=== PATIENT | female | born 1950 | race Caucasian/White ===

== ENCOUNTER → 2019-11-25 09:24 | Outpatient (BNVA) | payer MEDICARE, MEDICAID, SELFPAY | PROVIDERS: PCP Nurse Practitioner Family; Referring Provider Nurse Practitioner Family; Visit Provider Orthopaedic Surgery | DX: M25.561 Pain in right knee (principal) | CPT/HCPCS: 20610; 99213; J1100 ==

== ENCOUNTER → 2020-03-27 11:38 | Outpatient (BNVA) | payer MEDICARE, MEDICAID, SELFPAY | PROVIDERS: PCP Nurse Practitioner Family; Visit Provider Hospitalist | DX: Z76.89 Persons encountering health services in other specified circumstances (principal) | CPT/HCPCS: Q3014 ==

== ENCOUNTER → 2020-04-11 08:20 | Outpatient (BNVA) | payer MEDICARE, MEDICAID, SELFPAY | PROVIDERS: PCP Nurse Practitioner Family; Visit Provider Physician Assistant ==

== ENCOUNTER 2020-06-15 09:16 | Outpatient (REF) | payer MEDICARE, SELFPAY ==
--- NOTE | ~2020-06-15 | US_ITS ---
EXAMINATION: US ABDOMEN COMPLETE CLINICAL INFORMATION: Epigastric pain. COMPARISON: Previous CT of the abdomen and pelvis October 2019 TECHNIQUE: Real-time imaging of the abdominal viscera. FINDINGS: PANCREAS: Normal. ABDOMINAL AORTA: The proximal, mid, and distal segments are normal in caliber. INFERIOR VENA CAVA: Visualized portions are normal. LIVER: Liver echotexture is increased. The liver is enlarged, right lobe measuring 20 cm in length. The liver is normal in contour.. No focal hepatic lesion. There is no intrahepatic biliary duct dilatation seen. GALLBLADDER: Normal. The gallbladder is physiologically distended without evidence of stones, sludge, polyps, wall thickening or pericholecystic fluid. COMMON BILE DUCT: Normal in caliber measuring 0.4 cm in diameter. RIGHT KIDNEY: Normal No hydronephrosis. No renal calculi or focal parenchymal lesions. The kidney measures 10.6 cm in maximum dimension. LEFT KIDNEY: No hydronephrosis. No renal calculi or focal parenchymal lesions. The kidney measures 10.2 cm in maximum dimension. The nuclear medicine pet ct technologist reports the patient is tender over the left kidney. SPLEEN: Normal. The spleen measures 10.4 cm in maximum dimension. FREE FLUID: None. US/US abdomen complete IMPRESSION: Enlarged echogenic liver probably representing fatty infiltration. Otherwise unremarkable exam. The nuclear medicine pet ct technologist reports the patient is tender over the left kidney.
== END 2020-06-15 09:17 | disposition home or self-care (01) ==
LOC: HO.US 09:16
PROVIDERS: PCP Family Medicine; Visit Provider Family Medicine
DX: R10.13 Epigastric pain (principal)
CPT/HCPCS: 76700

== ENCOUNTER → 2020-07-11 13:11 | Outpatient (BNVA) | payer MEDICARE, SELFPAY | PROVIDERS: Visit Provider Hospitalist | DX: J44.9 Chronic obstructive pulmonary disease, unspecified (principal); G47.33 Obstructive sleep apnea (adult) (pediatric) | CPT/HCPCS: 99212 ==

== ENCOUNTER 2020-09-05 10:55 | Outpatient (REF) | payer MEDICARE, SELFPAY ==
--- NOTE | ~2020-09-05 | XR_ITS ---
EXAMINATION: XR HIP, LEFT CLINICAL INFORMATION: Pain in left hip. COMPARISON: None TECHNIQUE: Two views of the left hip. FINDINGS: Bones and soft tissues are normal. No fracture. Alignment is anatomic. Hip joint space is maintained. XR/XR hip LT min 2V IMPRESSION: Unremarkable left hip.
== END 2020-09-05 10:56 | disposition home or self-care (01) ==
LOC: HO.XRAY 10:55
PROVIDERS: PCP Nurse Practitioner; Visit Provider Internal Medicine
DX: M25.552 Pain in left hip (principal)
CPT/HCPCS: 73502

== ENCOUNTER 2020-09-27 14:32 | Outpatient (REF) | payer MEDICARE, SELFPAY ==
--- NOTE | ~2020-09-27 | US_ITS ---
EXAMINATION: US PELVIS CLINICAL INFORMATION: Postmenopausal bleeding. COMPARISON: None. TECHNIQUE: Ultrasound of the pelvis is performed using both transabdominal and transvaginal transducers along with Doppler. Transvaginal imaging is performed due to inadequate visualization transabdominally. FINDINGS: Uterus: The uterus is anteverted and anteflexed measuring 5.4 cm in length, 2.3 cm AP and 4.8 cm in transverse dimension. Endometrial thickness is 0.7 cm. No focal lesion seen. Adnexa: Both ovaries are not visualized. There is no pelvic ascites or fluid collection. US/US pelvic and transvaginal IMPRESSION: Unremarkable uterus. Mild endometrial thickening. Ovaries are not seen.
== END 2020-09-27 14:33 | disposition home or self-care (01) ==
LOC: HO.US 14:32
PROVIDERS: Visit Provider Nurse Practitioner
DX: N95.0 Postmenopausal bleeding (principal)
CPT/HCPCS: 76830; 76856

== ENCOUNTER → 2020-10-15 20:01 | Outpatient (REF) | payer MEDICARE, SELFPAY | LOC: HO.SL 20:01 | PROVIDERS: Visit Provider Hospitalist | DX: G47.33 Obstructive sleep apnea (adult) (pediatric) (principal) | CPT/HCPCS: 95810 ==

== ENCOUNTER → 2020-10-27 10:17 | Outpatient (BNVA) | payer MEDICARE, SELFPAY | PROVIDERS: PCP Nurse Practitioner; Visit Provider Hospitalist | DX: G47.33 Obstructive sleep apnea (adult) (pediatric) (principal); J44.9 Chronic obstructive pulmonary disease, unspecified | CPT/HCPCS: 99212 ==

== ENCOUNTER → 2020-11-08 13:16 | Outpatient (BNVA) | payer MEDICARE, SELFPAY | PROVIDERS: PCP Nurse Practitioner; Visit Provider Hospitalist | DX: J45.909 Unspecified asthma, uncomplicated (principal) | CPT/HCPCS: 99211 ==

== ENCOUNTER → 2021-10-12 14:19 | Outpatient (BNVA) | payer MEDICARE, SELFPAY | PROVIDERS: PCP Nurse Practitioner; Visit Provider Hospitalist | DX: J44.9 Chronic obstructive pulmonary disease, unspecified (principal); J45.41 Moderate persistent asthma with (acute) exacerbation; K21.9 Gastro-esophageal reflux disease without esophagitis; G47.33 Obstructive sleep apnea (adult) (pediatric) | CPT/HCPCS: 99212 ==

== ENCOUNTER 2021-12-04 15:14 | Outpatient (REF) | payer OTHER, SELFPAY ==
--- NOTE | ~2021-12-04 | MM_ITS ---
EXAMINATION: MM SCREENING DIGITAL BREAST TOMOSYNTHESIS, BILATERAL CLINICAL INFORMATION: Screening. Asymptomatic. The lifetime risk of breast cancer based on the Tyrer-Cuzick Model is 4%. COMPARISON: Mammography: 10/19/2019, 07/06/2018, 06/10/2017 TECHNIQUE: Digital breast tomosynthesis is performed in both the craniocaudal and mediolateral oblique views along with computer-aided detection (CAD). Synthesized 2D images are generated from the tomosynthesis. FINDINGS: There are scattered areas of fibroglandular density (ACR BI-RADS breast composition Category b). There are no significant masses, abnormal calcifications, or other abnormalities. Parenchymal pattern is similar to prior exams. No developing density or architectural abnormality. Incidental intramammary node again seen mid upper outer right breast. There are biopsy clip markers in both anterior breasts. The axilla and skin contours are unremarkable. MM/MM tomosynthesis screening BI IMPRESSION: No mammographic evidence of malignancy. ASSESSMENT: BI-RADS 2: Benign RECOMMENDATION: Routine annual mammography screening. This patient's information was entered into a reminder system with a target due date for their next mammogram.
== END 2021-12-04 15:15 | disposition home or self-care (01) ==
LOC: HO.MAMMO 15:14
PROVIDERS: PCP Nurse Practitioner; Visit Provider Nurse Practitioner
DX: Z12.31 Encounter for screening mammogram for malignant neoplasm of breast (principal)
CPT/HCPCS: 77063; 77067

== ENCOUNTER → 2022-02-25 15:06 | Outpatient (BNVA) | payer OTHER, SELFPAY | PROVIDERS: PCP Nurse Practitioner; Visit Provider Hospitalist | DX: J45.41 Moderate persistent asthma with (acute) exacerbation (principal); J44.9 Chronic obstructive pulmonary disease, unspecified; G47.33 Obstructive sleep apnea (adult) (pediatric) | CPT/HCPCS: 99212 ==

== ENCOUNTER 2022-07-25 15:12 | Outpatient (REF) | payer OTHER, SELFPAY ==
--- NOTE | ~2022-07-25 | XR_ITS ---
EXAMINATION: XR SHOULDER, LEFT CLINICAL INFORMATION: Left shoulder pain. COMPARISON: None available. TECHNIQUE: AP external rotation, Grashey, scapular Y, and axillary views of the left shoulder. FINDINGS: There is no evidence of acute fracture or dislocation of the left shoulder. No evidence of calcific tendinitis or bursitis. Glenohumeral joint appears unremarkable other than for minimal spurring inferiorly. There is mild spurring about the acromioclavicular joint. No widening of the coracoclavicular space is seen. XR/XR shoulder LT min 2V IMPRESSION: No significant bony abnormality of the left shoulder identified.
== END 2022-07-25 15:13 | disposition home or self-care (01) ==
LOC: HO.HHCX 15:12
PROVIDERS: Visit Provider Emergency Medicine
DX: M25.512 Pain in left shoulder (principal)
CPT/HCPCS: 73030

== ENCOUNTER 2022-08-30 09:50 | Outpatient (REF) | payer OTHER, SELFPAY ==
[2022-08-30 11:23] LABS: Urine Cytology See Pathology rpt
[2022-08-30 11:39] LABS: Appearance Urine Clear; Basophils Percent Auto 0.7 % (0-2); Color Urine Yellow; Eosinophils Absolute Auto 1.3 X10*3/uL (0.0-0.4); Eosinophils Percent Auto 22.3 % (0-4); Glucose Urine UA Negative (Negative); Hematocrit 32.8 % (37.0-47.0); Hemoglobin 10.3 g/dl (12.0-16.0); Imm Gran Abs Auto 0.01 X10*3/uL (0.00-0.03); Imm Gran Pct Auto 0.2 % (0.0-0.4); Leukocyte Esterase Urine Negative (Negative); Lymphocytes Absolute Auto 1.3 X10*3/uL (1.2-4.9); MANUAL DIFF FLAG SCAN; Mean Corpuscular HGB Conc 31.4 g/dl (31.0-35.0); Mean Corpuscular Hemoglobin 30.8 pg (27.0-33.0); Mean Corpuscular Volume 98.2 fL (80.0-98.0); Mean Platelet Volume 10.4 fL (9.4-12.3); Monocytes Absolute Auto 0.3 X10*3/uL (0.1-1.2); Monocytes Percent Auto 5.6 % (2-11); Neutrophils Absolute Auto 2.8 x10*3/uL (2.0-8.3); Neutrophils Percent Auto 49.2 % (45-73); Nitrite Urine Negative (Negative); Platelet Count 327 X10*3/uL (160-400); Red Blood Count 3.34 X10*6/uL (4.20-5.50); Red Cell Distribution Width 12.4 % (11.0-16.0); SCAN SMEAR FLAG 1; Urine Blood Negative (Negative); Urine Ketones Negative (Negative); Urine Protein Negative (Neg-Trace); White Blood Count 5.7 X10*3/uL (4.8-10.8)
[2022-08-30 11:58] LABS: SLIDE REVIEW VERIFIED
[2022-08-30 12:04] LABS: Creatinine Urine 126.35 mg/dL; Microalbum/Creatinine Ratio Ur 7.9 ug/mg cr
[2022-08-30 12:33] LABS: Estimated Average Glucose 137 mg/dL; Hemoglobin A1c % 6.4 %
[2022-08-30 12:56] LABS: Alanine Aminotransferase 11 U/L (0-31); Albumin Level 4.1 g/dL (3.5-5.0); Alkaline Phosphatase 55 U/L (39-117); Anion Gap 12 (12-20); Aspartate Amino Transferase 13 U/L (5-31); Bilirubin Total 0.3 mg/dL (0.0-1.0); Blood Urea Nitrogen 17 mg/dL (9-16); Calcium 9.7 mg/dL (8.4-10.2); Carbon Dioxide 26 mmol/L (22-29); Chloride 104 mmol/L (96-108); Cholesterol 263 mg/dL; Estimated Glomerular Filt Rate > 60; Glucose Fasting 120 mg/dL (60-99); HDL Cholesterol 67 mg/dL; LDL Cholesterol Calculated 150 mg/dl; Sodium 138 mmol/L (135-145); Syphilis Screen Nonreactive (Nonreactive); Total Protein 6.9 g/dL (6.5-8.0); Triglycerides 233 mg/dL
[2022-08-30 13:01] LABS: Vitamin D 25-OH Total 38.3 ng/mL (>30)
[2022-08-30 13:16] LABS: Vitamin B12 512 pg/mL (200-900)
[2022-08-30 13:47] LABS: CT PCR NOT DETECTED (Not Detect.); NG PCR NOT DETECTED (Not Detect.)
[2022-09-02 05:05] LABS: ~HepC Num1 0.14 S/CO (0.00-0.79); ~Hepatitis C Antibody Nonreactive (Nonreactive)
[2022-09-02 05:12] LABS: HBc Num1 0.12 S/CO (0.00-0.79); HBsAGNum1 0.21 S/CO (0.00-0.99); HIV AB/AG Nonreactive (Nonreactive); HIV Num 1 0.13 S/CO (0.00-0.99); Hepatitis B Core Antibody Nonreactive (Nonreactive); Hepatitis B Surface Antigen Negative (Negative)
[2022-09-02 05:50] LABS: HBS Num1 134.12 mIU/mL (0-7.99); ~Hepatitis B Surface Antibody REACTIVE (Nonreactive)
== END 2022-08-30 09:51 | disposition home or self-care (01) ==
LOC: HO.CHCLDS 09:50
PROVIDERS: Visit Provider Student in an Organized Health Care Education/Training Program
DX: Z00.00 Encounter for general adult medical examination without abnormal findings (principal); Z11.4 Encounter for screening for human immunodeficiency virus [HIV]; Z20.2 Contact with and (suspected) exposure to infections with a predominantly sexual mode of transmission; C67.9 Malignant neoplasm of bladder, unspecified; E11.9 Type 2 diabetes mellitus without complications; Z79.4 Long term (current) use of insulin
CPT/HCPCS: 0353U; 80053; 80061; 81003; 82043; 82306; 82607; 83036; 84439; 85025; 86704; 86706; 86780; 86803; 87340; 87389; 88112

== ENCOUNTER 2022-09-16 12:50 | Outpatient (AMB) | payer OTHER, SELFPAY ==
[2022-09-16 13:09] VITALS: BMI 28.3
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
== END 2022-09-16 13:56 | disposition home or self-care (01) ==
PROVIDERS: PCP Nurse Practitioner; Visit Provider Orthopaedic Surgery
DX: M25.812 Other specified joint disorders, left shoulder (principal); M75.42 Impingement syndrome of left shoulder
CPT/HCPCS: 20610; 99214

== ENCOUNTER → 2022-09-16 12:50 | Outpatient (BNVA) | payer OTHER, SELFPAY | PROVIDERS: PCP Nurse Practitioner; Visit Provider Orthopaedic Surgery | DX: M25.812 Other specified joint disorders, left shoulder (principal); E11.9 Type 2 diabetes mellitus without complications | CPT/HCPCS: 20610; 99212; J1100 ==

== ENCOUNTER 2022-10-07 15:05 | Outpatient (REF) | payer OTHER, SELFPAY ==
[2022-10-07 16:49] LABS: MANUAL DIFF FLAG NO
[2022-10-07 17:08] LABS: Basophils Percent Auto 0.6 % (0-2); Eosinophils Absolute Auto 1.2 X10*3/uL (0.0-0.4); Eosinophils Percent Auto 16.1 % (0-4); Hematocrit 31.1 % (37.0-47.0); Imm Gran Abs Auto 0.02 X10*3/uL (0.00-0.03); Imm Gran Pct Auto 0.3 % (0.0-0.4); Lymphocytes Absolute Auto 1.6 X10*3/uL (1.2-4.9); Lymphocytes Percent Auto 22.5 % (20-40); Mean Corpuscular HGB Conc 32.2 g/dl (31.0-35.0); Mean Corpuscular Hemoglobin 31.3 pg (27.0-33.0); Mean Corpuscular Volume 97.5 fL (80.0-98.0); Mean Platelet Volume 10.4 fL (9.4-12.3); Monocytes Absolute Auto 0.3 X10*3/uL (0.1-1.2); Monocytes Percent Auto 4.3 % (2-11); Neutrophils Percent Auto 56.2 % (45-73); Platelet Count 285 X10*3/uL (160-400); Red Blood Count 3.19 X10*6/uL (4.20-5.50); White Blood Count 7.2 X10*3/uL (4.8-10.8)
[2022-10-07 20:49] LABS: Influenza A PCR NEGATIVE (Negative); Influenza B PCR NEGATIVE (Negative); Resp Syncy Virus RNA Qual PCR NEGATIVE (Negative); SARS COV2 PCR INHOUSE NEGATIVE (Negative)
[2022-10-08 10:07] LABS: BV Int Neg Control Negative (Negative); BV Int Pos Control Positive (Positive)
== END 2022-10-07 15:06 | disposition home or self-care (01) ==
LOC: HO.HHCL 15:05
PROVIDERS: Visit Provider Emergency Medicine
DX: R30.0 Dysuria (principal); R31.9 Hematuria, unspecified; N93.9 Abnormal uterine and vaginal bleeding, unspecified; Z20.822 Contact with and (suspected) exposure to COVID-19
CPT/HCPCS: 0241U; 36415; 85025; 87086; 87480; 87510; 87660

== ENCOUNTER 2022-10-14 00:02 | Emergency (ER) | payer OTHER, SELFPAY ==
--- NOTE | 2022-10-14 | ECG_ITS ---
Test Reason : CHEST PAIN FOR 3 Days Blood Pressure : / mmHG Vent. Rate : 104 BPM Atrial Rate : 104 BPM P-R Int : 124 ms QRS Dur : 074 ms QT Int : 346 ms P-R-T Axes : 064 -02 084 degrees QTc Int : 454 ms Sinus tachycardia Otherwise normal ECG When compared with ECG of 15-NOV-2019 11:28, No significant change was found Referred By: Generic ED Physician Electronically Signed By:DANAE SAMANO
[2022-10-14 00:15] VITALS: BP 138/69; PULSE 103; RESP 18; TEMP 36.9; O2SAT 100; BMI 29.1
--- NOTE | 2022-10-14 00:29 | MHC.EDTECH ---
PATIENT CAME IN WALKING IN WITH CHEST PAIN EKG TAKEN AND WAS READ BY PROVIDER ,PT WAS BROUGHT BACK TO ROOM ,VITALS SIGN TAKEN ,PT WAS HOOKED UP TO NURSE PRN ,BLOOD DRAWN AND SENT TO LAB .
[2022-10-14 00:36] LABS: Hematocrit 30.6 % (37.0-47.0); Mean Corpuscular HGB Conc 32.7 g/dl (31.0-35.0); Mean Corpuscular Hemoglobin 31.3 pg (27.0-33.0); Mean Corpuscular Volume 95.6 fL (80.0-98.0); Mean Platelet Volume 9.5 fL (9.4-12.3); Platelet Count 330 X10*3/uL (160-400); Red Cell Distribution Width 12.2 % (11.0-16.0); White Blood Count 14.9 X10*3/uL (4.8-10.8)
[2022-10-14 00:53] LABS: Alanine Aminotransferase 10 U/L (0-31); Alkaline Phosphatase 53 U/L (39-117); Anion Gap 13 (12-20); Aspartate Amino Transferase 13 U/L (5-31); Bilirubin Total 0.1 mg/dL (0.0-1.0); Blood Urea Nitrogen 33 mg/dL (9-16); Calcium 9.5 mg/dL (8.4-10.2); Carbon Dioxide 25 mmol/L (22-29); Chloride 103 mmol/L (96-108); Creatinine Clr Calc Pharmacy 32.2; Estimated Glomerular Filt Rate 37; Glucose Random 208 mg/dL (60-115); Sodium 137 mmol/L (135-145); Total Protein 6.9 g/dL (6.5-8.0)
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
[2022-10-14 01:00] LABS: Troponin-I High Sensitivity < 2.7 ng/L (<3.5-17.0)
[2022-10-14] MEDS: Ibuprofen 600 MG TABLET PO (01:06)
[2022-10-14] MEDS: oxyCODONE HCl Immed Release 5 MG TABLET PO (01:06)
[2022-10-14 01:25] VITALS: BP 114/48; PULSE 91; RESP 20; TEMP 36.4; O2SAT 97
== END 2022-10-14 01:43 | disposition home or self-care (01) ==
PROVIDERS: Emergency Provider Emergency Medicine; PCP Internal Medicine
DX: R07.89 Other chest pain (principal); M25.512 Pain in left shoulder; F17.210 Nicotine dependence, cigarettes, uncomplicated; Z71.6 Tobacco abuse counseling; Z79.899 Other long term (current) drug therapy
CPT/HCPCS: 36415; 80053; 84484; 85027; 93005; 99283; 99285

== ENCOUNTER 2022-11-12 15:03 | Outpatient (REF) | payer OTHER, SELFPAY ==
[2022-11-12 16:15] LABS: MANUAL DIFF FLAG NO
[2022-11-12 16:33] LABS: Basophils Absolute Auto 0.1 X10*3/uL (0.0-0.2); Basophils Percent Auto 0.8 % (0-2); Eosinophils Absolute Auto 1.2 X10*3/uL (0.0-0.4); Eosinophils Percent Auto 16.1 % (0-4); Hematocrit 32.2 % (37.0-47.0); Hemoglobin 10.2 g/dl (12.0-16.0); Imm Gran Abs Auto 0.02 X10*3/uL (0.00-0.03); Imm Gran Pct Auto 0.3 % (0.0-0.4); Lymphocytes Absolute Auto 1.8 X10*3/uL (1.2-4.9); Lymphocytes Percent Auto 24.9 % (20-40); Mean Corpuscular HGB Conc 31.7 g/dl (31.0-35.0); Mean Corpuscular Hemoglobin 30.4 pg (27.0-33.0); Mean Corpuscular Volume 96.1 fL (80.0-98.0); Monocytes Absolute Auto 0.5 X10*3/uL (0.1-1.2); Monocytes Percent Auto 6.7 % (2-11); Neutrophils Absolute Auto 3.7 x10*3/uL (2.0-8.3); Neutrophils Percent Auto 51.2 % (45-73); Platelet Count 327 X10*3/uL (160-400); Red Blood Count 3.35 X10*6/uL (4.20-5.50); Red Cell Distribution Width 12.3 % (11.0-16.0); White Blood Count 7.3 X10*3/uL (4.8-10.8)
[2022-11-12 18:27] LABS: Iron 47 mcg/dL (30-160); Percent Iron Saturation 14 % (15-50); Total Iron Binding Capacity 339 mcg/dL (228-428); Unsaturated Iron Binding 292 ug/dL
[2022-11-12 18:45] LABS: Ferritin 48 ng/mL (10-250); Thyroid Stimulating Hormone 0.87 uIU/mL (0.32-4.0)
[2022-11-12 18:55] LABS: Folate 12.2 ng/mL (> or = 4.0)
[2022-11-16 23:03] LABS: Strongyloides Antibody IgG POSITIVE
== END 2022-11-12 15:04 | disposition home or self-care (01) ==
LOC: HO.HHCL 15:03
PROVIDERS: Visit Provider Student in an Organized Health Care Education/Training Program
DX: D72.19 Other eosinophilia (principal); D64.9 Anemia, unspecified
CPT/HCPCS: 82728; 82746; 83520; 83540; 84443; 85025; 86682

== ENCOUNTER → 2022-12-05 15:00 | Outpatient (BNV) | payer OTHER, SELFPAY | PROVIDERS: PCP Student in an Organized Health Care Education/Training Program; Visit Provider Radiology Diagnostic Radiology | DX: Z12.31 Encounter for screening mammogram for malignant neoplasm of breast (principal) | CPT/HCPCS: 77063; 77067 ==

== ENCOUNTER 2022-12-05 15:06 | Outpatient (REF) | payer OTHER, SELFPAY ==
--- NOTE | ~2022-12-05 | MM_ITS ---
EXAMINATION: BONE DENSITOMETRY CLINICAL INDICATION: Asymptomatic menopausal state. COMPARISON: This is the patient's baseline examination. TECHNIQUE: Using a Flowbox DXA System (software version: 13.1) manufactured by [employer], dual-energy x-ray absorptiometry was performed of the lumbar spine and left hip. The images are of good technical quality. Summary results are attached. FINDINGS: AP SPINE L1-L4: BMD 1.143 g/cm2, Z-score 1.5, T-score -0.3, normal. LEFT FEMUR, NECK: BMD 0.834 g/cm2, Z-score 0.3, T-score -1.5, osteopenia. LEFT FEMUR, TOTAL: BMD 0.984 g/cm2, Z-score 1.4, T-score -0.2, normal. IDENTIFIED RISK FACTORS: Rheumatoid arthritis. Early menopause, secondary osteoporosis . HISTORY OF FRACTURE: None listed. MEDICATIONS: Calcium supplement or multivitamin. Vitamin D. MM/XR DEXA axial skeleton IMPRESSION: 1. DIAGNOSIS: Osteopenia based on the lowest T-score value of -1.5 in the femoral neck applying World Health Organization criteria. 2. 10-YEAR FRACTURE RISK PREDICTION, FRAX: Major osteoporotic fracture (clinical spine, forearm, hip or shoulder) 7.2%. Hip fracture 1.1%. 3. Treatment Recommendations: NOF guidelines recommend consideration for treatment in postmenopausal women and men age 50 and older presenting with the following: -A hip or vertebral (clinical or morphometric) fracture. -T-score less than or equal to -2.5 at the femoral neck or spine after appropriate evaluation to exclude secondary causes. -Low bone mass at the hip or spine and a 10-year fracture probability by FRAX of greater than or equal to 3% for hip fracture or greater than or equal to 20% for major osteoporotic fracture based on the [place] adapted WHO algorithm. 4. Other Recommendations: All treatment decisions require clinical judgment and consideration of individual patient factors, including patient preferences, comorbidities, previous drug use, risk factors not captured in the FRAX model (e.g. frailty, falls, vitamin D deficiency, increased bone turnover, interval significant decline in bone density) and possible under or overestimation of fracture risk by FRAX. Additional medical evaluation for secondary cause of low bone mineral density may be appropriate. FUTURE SCAN RECOMMENDATION: People with diagnosed cases of osteoporosis or at high risk for fracture should have regular bone mineral density tests. For patients eligible for Medicare, routine testing is allowed once every 2 years. The testing frequency can be increased to one year for patients who have rapidly progressing disease, those who are receiving or discontinuing medical therapy to restore bone mass, or have additional risk factors.
--- NOTE | ~2022-12-05 | MM_ITS ---
EXAMINATION: MM SCREENING DIGITAL BREAST TOMOSYNTHESIS, BILATERAL CLINICAL INFORMATION: Screening. Asymptomatic. COMPARISON: Mammography: 12/04/2021 ,10/19/2019, 07/06/2018, 06/10/2017 TECHNIQUE: Digital breast tomosynthesis is performed in both the craniocaudal and mediolateral oblique views along with computer-aided detection (CAD). Synthesized 2D images are generated from the tomosynthesis. In addition, a right MLO nipple in profile full digital 3-D view was provided. FINDINGS: There are scattered areas of fibroglandular density (ACR BI-RADS breast composition Category b). Biopsy clips noted both anterior breasts. Benign lymph node noted in the upper outer right breast, middle one third. This is unchanged. Tiny punctate loosely grouped calcifications are again noted in the anterior left breast, unchanged and benign. There are no suspicious masses, suspicious grouped calcifications, or areas of architectural distortion in either breast. The parenchymal pattern is stable from prior exams. MM/MM tomosynthesis screening BI IMPRESSION: No mammographic evidence of malignancy. Stable benign findings ASSESSMENT: BI-RADS BI-RADS 2 - Benign Findings RECOMMENDATION: Routine annual mammography screening. 1 year F/U This examination should not preclude the clinical evaluation of a suspicious palpable abnormality. This patient's information was entered into a reminder system with a target due date for their next mammogram.
== END 2022-12-05 15:07 | disposition home or self-care (01) ==
LOC: HO.MAMMO 15:06
PROVIDERS: PCP Student in an Organized Health Care Education/Training Program; Visit Provider Student in an Organized Health Care Education/Training Program
DX: Z12.31 Encounter for screening mammogram for malignant neoplasm of breast (principal); Z13.820 Encounter for screening for osteoporosis; Z78.0 Asymptomatic menopausal state
CPT/HCPCS: 77063; 77067; 77080

== ENCOUNTER 2023-01-22 19:33 | Outpatient (REF) | payer OTHER, SELFPAY ==
[2023-01-22 20:30] LABS: Influenza A PCR NEGATIVE (Negative); Influenza B PCR NEGATIVE (Negative); Resp Syncy Virus RNA Qual PCR NEGATIVE (Negative); SARS COV2 PCR INHOUSE NEGATIVE (Negative)
== END 2023-01-22 19:34 | disposition home or self-care (01) ==
LOC: HO.HHCLNP 19:33
PROVIDERS: Visit Provider Emergency Medicine
DX: Z11.52 Encounter for screening for COVID-19 (principal); J06.9 Acute upper respiratory infection, unspecified
CPT/HCPCS: 0241U

== ENCOUNTER 2023-03-07 14:54 | Outpatient (REF) | payer OTHER, SELFPAY ==
--- NOTE | 2023-03-07 14:57 | EMG_ITS ---
Chief complaint: Hand numbness Reason for referral: Evaluate for Carpal Tunnel Syndrome Referred by: Dr. Lawrence Procedure done: Bilateral upper extremities NCS/EMG Precautions and/or limitations: Slovenian speaking, daughter helped with translation The limb temperature was monitored continuously and remained between 32-36 degrees C during the performance of the NCS. Nerve Conduction Studies Anti Sensory Summary Table ?Stim Site NR Onset (ms) Norm Onset (ms) Peak (ms) Norm Peak (ms) O-P Amp (?V) Norm O-P Amp Site1 Site2 Delta-0 (ms) Dist (cm) Js (m/s) Norm Js (m/s) Left Median Anti Sensory (2nd Digit) Wrist ? 5.2 6.1 <3.6 5.2 >10 Wrist 2nd Digit 5.2 14.0 27 Right Median Anti Sensory (2nd Digit) Wrist NR <3.6 >10 Wrist 2nd Digit 14.0 Right Radial Anti Sensory (Thumb) Forearm ? 1.6 2.3 <3.1 21.8 Forearm Thumb 1.6 0.0 Left Ulnar Anti Sensory (5th Digit) Wrist ? 2.6 3.8 <3.7 18.3 >15.0 Wrist 5th Digit 2.6 14.0 54 Right Ulnar Anti Sensory Run #2 (5th Digit) Wrist ? 3.2 4.0 <3.7 11.0 >15.0 Wrist 5th Digit 3.2 14.0 44 Motor Summary Table ?Stim Site NR Onset (ms) Norm Onset (ms) O-P Amp (mV) Norm O-P Amp iAmp (mV) Amp (1st) (%) Site1 Site2 Delta-0 (ms) Dist (cm) Js (m/s) Norm Js (m/s) Left Median Motor (Abd Poll Brev) Wrist ? 5.7 <3.9 6.9 >4.5 8.2 100.0 Elbow Wrist 3.8 19.0 50 >45 Elbow ? 9.5 6.7 8.1 97.1 Right Median Motor (Abd Poll Brev) Wrist ? 5.9 <3.9 5.2 >4.5 6.4 100.0 Elbow Wrist 4.2 17.0 40 >45 Elbow ? 10.1 4.6 5.7 88.5 Left Ulnar Motor (Abd Dig Minimi) Wrist ? 3.0 <3.0 8.4 >5 10.2 100.0 B Elbow Wrist 3.1 16.0 52 >45 B Elbow ? 6.1 8.1 9.9 96.4 A Elbow B Elbow 1.8 10.0 56 >45 A Elbow ? 7.9 7.7 9.7 91.7 Right Ulnar Motor (Abd Dig Minimi) Wrist ? 2.9 <3.0 8.3 >5 10.0 100.0 B Elbow Wrist 3.5 17.0 49 >45 B Elbow ? 6.4 8.0 9.6 96.4 A Elbow B Elbow 1.3 10.0 77 >45 A Elbow ? 7.7 7.7 9.1 92.8 EMG ?Side Muscle Nerve Root Ins Act Fibs Psw Amp Dur Poly Recrt Int Pat Comment Right 1stDorInt Ulnar C8-T1 Nml Nml Nml Nml Nml 0 Nml Complete Right FlexCarRad Median C6-7 Nml Nml Nml Nml Nml 0 Nml Complete Right Biceps Musculocut C5-6 Nml Nml Nml Nml Nml 0 Nml Complete Right Triceps Radial C6-7-8 Nml Nml Nml Nml Nml 0 Nml Complete Right Deltoid Axillary C5-6 Nml Nml Nml Nml Nml 0 Nml Complete Left 1stDorInt Ulnar C8-T1 Nml Nml Nml Nml Nml 0 Nml Complete Left FlexCarRad Median C6-7 Nml Nml Nml Nml Nml 0 Nml Complete Left Biceps Musculocut C5-6 Nml Nml Nml Nml Nml 0 Nml Complete Left Triceps Radial C6-7-8 Nml Nml Nml Nml Nml 0 Nml Complete Left Deltoid Axillary C5-6 Nml Nml Nml Nml Nml 0 Nml Complete FINDINGS: Right median motor nerve showed prolonged distal latency, normal amplitude and slow conduction velocity. Left median motor nerve showed prolonged distal latency, small amplitude and normal conduction velocity. Right median sensory nerve showed absent response. Left median sensory nerve showed prolonged peak latency and small amplitude. All other nerves tested were within normal. Concentric needle EMG was performed in selected muscles of the bilateral upper extremities. Study did not reveal signs of electric abnormalities as shown in the table below. IMPRESSION: 1. This is an abnormal study. 2. There is electrodiagnostic evidence for bilateral moderate-severe median neuropathy at the wrist, consistent with carpal tunnel syndrome. 3. There is no electrodiagnostic evidence for ulnar neuropathy, brachial plexopathy, or cervical radiculopathy. Thank you for your kind referral. Sherrie Reece MD, OSITO Board Certified, [place] Board [employer] and Rehabilitation (ABPMR) Board Certified, [place] Board of Electrodiagnostic Medicine (ABEM) CODIN 02030 x2 MTDD
== END 2023-03-07 14:55 | disposition home or self-care (01) ==
LOC: HO.NEURO 14:54
PROVIDERS: PCP Student in an Organized Health Care Education/Training Program; Visit Provider Emergency Medicine
DX: R20.0 Anesthesia of skin (principal); R20.2 Paresthesia of skin
CPT/HCPCS: 95886; 95911

== ENCOUNTER → 2023-03-07 14:57 | Outpatient (BNV) | payer OTHER, SELFPAY | PROVIDERS: PCP Student in an Organized Health Care Education/Training Program; Visit Provider Physical Medicine & Rehabilitation | DX: G56.03 Carpal tunnel syndrome, bilateral upper limbs (principal) | CPT/HCPCS: 95886; 95911 ==

== ENCOUNTER 2023-04-25 12:40 | Outpatient (AMB) | payer OTHER, SELFPAY ==
[2023-04-25 12:51] VITALS: BP 98/66; PULSE 91; O2SAT 96; BMI 28.7
--- NOTE | 2023-04-25 12:51 | A.OFFVIS_ITS ---
Intake Vital Signs 04/25/23 12:51 Height 5 ft Weight 147 lb BMI 28.7 BP 98/66 Blood Pressure Location Lt brachial Position Sitting Pulse 91 Pulse Source Doppler Pulse Oximetry (%) 96 Oxygen Delivery Method Room Air Intake Visit Reasons: COPD Allergies No Known Allergies [No Known Allergies*] Allergy (Verified 04/25/23 12:54) HPI HPI Comments History of Present Illness Details The patient is a 71-year-old woman known COPD in addition to obstructive sleep apnea. Apparently she has had multiple sleep studies in the past going back to 2010. She has had issues with hypoxia at nighttime. She has daytime drowsiness and does have headaches in the morning. Moderate severity. Her [place] score is elevated. Her last CPAP study was back in 2018 which she did have mild sleep apnea. The patient has become more symptomatic and she does carry cardiovascular risks so this point will repeat her study. I'm hoping home sleep study will be sufficient. In the meantime the patient continues to have shortness of breath she does use inhalers at home but is very confusing for her to know which 1 she is supposed to be using. I do think that we need to optimize respiratory therapy and improve her adherence and we can do this with trelegy. The patient has not had any recent pulmonary function study. She also has nasal congestion. She has had epistaxis. 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 She does use allergy medicines but still has significant congestion. Moderate severity. Complains of a postnasal drip and cough. We will try Astelin nasal spray. 11/11/2019 the patient is here for pulmonary follow-up visit. She has had worsening respiratory symptoms. She has had worsening cough moderate severity. She is expectorating yellowish mucus. She was evaluated here back in the beginning of October and was prescribed prednisone for COPD exacerbation. She also completed a short course of a Z-Yg. However, her symptoms are persistent she is getting worse. The medications were partially helpful. She continues use her nebulized therapy with partial improvement of her symptoms. On examination she does have wheezing in addition to some crackles in the right base suggesting the possibility of bronchopneumonia. Therefore, however going for an x-ray and give her additional antibiotics and prednisone. The patient also would need to undergo blood work at this time. 12/06/2020 the patient has a telephone visit today. Unfortunately she is having worsening respiratory symptoms again. Back the last time I saw her back in October she was also having issues with worsening bronchitis and possibility bronchopneumonia. She did have a chest x-ray at the time. No significant findings. Now she has presented again with increasing shortness of breath and cough. Denies any sick contacts. Denies any fevers or chills and denies any exposure to anybody with COVID-19. The patient knows that if her symptoms persist she has to be tested for COVID-19. In the meantime will treat her for a exacerbation of her asthma. The patient is continued to use a nebulizer. In regard to her sleep apnea the patient was supposed to have a sleep study however she never did. Partly because of the pandemic. Hopefully will follow-up after she gets vaccinated and will readdress the sleep apnea issue by repeating the sleep study then. 07/11/2020 the patient is here for pulmonary follow-up visit. She has a hard time with her breathing. Having significant chest congestion and bronchitis. She has had multiple courses of antibiotics and prednisone for this chronic bronchitis. At this point she will be a good candidate for Daliresp. She does have diabetes will try to minimize the amount of prednisone that she takes. Will also will optimize respiratory therapy. In the meantime she continues to have daytime drowsiness. She also has headaches in the morning. Her [place] score is elevated 10/24. She did have a sleep study back in the fall 2019 with an AHI of 3.4. She also had some degree of hypoxia. This point based on the fact that the home sleep study was sub optimal will going to request an inlab sleep study 10/27/2020 the patient is here for a pulmonary follow-up visit. She has had been having worsening respiratory symptoms. Has significant wheezing and chest congestion and cough. She has been like this now for few weeks. Seems to be getting worse. She had to stop the Daliresp as it was not helping. She also tried multiple numerous inhalers that have not been helpful. The only beneficial 1 was Bevespi. Will try her on Breztri at this at this time. In the meantime she continues to have significant daytime drowsiness. We did have her undergo a in-lab study. Her AHI was up to 30 consistent with severe sleep apnea. Patient needs to start CPAP therapy at this time. Will make arrangements with local [employer] company to start the therapy. In the meantime we did review her blood work demonstrating significant eosinophilia and also significant elevations in the IgE consistent with allergic asthma. The patient has required maximize respiratory therapy with partial resolution her symptoms and frequent prednisone. The patient is a great candidate for biologic therapy. She had been on Xolair in the past and that appear to be effective for her. I do believe that she brought will respond better to Dupixent at this time. 10/12/2021 The patient is here for a pulmonary follow up visit. She continues to struggle with her asthma. Developed worsening wheezing and productive cough. Prior to this she was doing well for several months. Unfortun ately, she is grieving the of her daughter. Could not start the Daliresp. She was started on Dupixent and she feels that is working. We will continue to monitor her progress. If she continues to require prednisone then we could consider switching to Tezspire. 02/25/2022 the patient is here for a pulmonary follow-up visit. She is having worsening respiratory symptoms. Complaining of chest tightness and wheezing. Moderate severity. She was responding very well to the Dupixent. She was no longer requiring prednisone. Her respiratory symptoms were much improved. However for some reason she has not able to get the injections anymore. Will look into it further. Hoping for her to continue biologic therapy. The meantime she does have significant wheezing and will start her on prednisone. She also get her CPAP. The CPAP therapy will be affecting beneficial. Although still not adjusted for her. She is having issues because is having too much water draining to her mask. I also see that she is using a nasal pillow mask. This is that appear to be effective for her. Therefore I did provide her with an F20 fullface mask. We continue with the APAP at the current settings but I brought the humidity down to 1. I am hopeful that she can tolerated better. She will bring in the next few months in order to make sure that she is doing better with. She is aware that she needs to use it at least 4 hours a day. 04/25/2023 the patient is here for sick visit. She has had worsening respiratory symptoms for the last week. She is feeling that she is getting wor se. Significant chest tightness and some wheezing. Moderate severity. Unfortunately her nebulizer tubing broken she has not been able to use it. She does have a Trelegy inhaler she has been using also her rescue inhaler. These therapies only been partially helpful. And only for short period of time. The patient has been struggling with significant wheezing. During the last visit she did require prednisone. Prior to that she had been on biologic therapies which have been very helpful. At this time will provide her with a nebulizer treatment in the office. After the treatment she was able to improves therefore will send her additional prednisone and antibiotics in the pharmacy. Patient also took the tubing were her to use her nebulizer home to to 4 times a day. If the patient is no better she will call the office for an earlier assessment. Although I so follow-up in 4-6 months. [facility] Medical History Asthma Asthma-COPD overlap syndrome Bilateral anterior knee pain Bladder cancer Diabetes Hypertension JIMBO (obstructive sleep apnea) Social History (Updated 04/25/23 @ 12:55 by SHAKILA Hudson) Patient Tobacco Use Status: Former Tobacco user Tobacco use type: Cigarette Years Smoked: 17 years old, quit 1 year ago Review of Systems Const Reports daytime sleepiness and Denies night sweats ENT Denies change in voice, Denies lip swelling, Denies mouth pain, Reports nasal congestion, Reports nasal discharge and Denies tongue swelling Card Denies chest pain and Reports dyspnea on exertion Resp Reports chest congestion, Reports cough, Denies hemoptysis, Reports dyspnea on exertion and Reports wheezing GI Denies abdominal pain Musc Denies no additional complaints Neuro Denies Neuro-related abnormal movements Psych Denies no additional complaints Kiran/Lymph Denies easy bleeding and Denies lymphadenopathy Aller/Immun Denies lip swelling, Denies tongue swelling and Reports wheezing Physical Exam Vital Signs: Last Vital Signs Pulse 91 04/25/23 12:51 BP 98/66 04/25/23 12:51 Pulse Ox 96 04/25/23 12:51 Oxygen Delivery Method Room Air 04/25/23 12:51 BMI result Body Mass Index 28.7 Const General: alert Neck Neck: Yes normal visual inspection, Yes full ROM and Yes no lymphadenopathy Chest Chest palpation & inspection: normal inspection of the chest Resp Auscultation: rhonchi, wheezes and diminished lung sounds Cardio Rate: regular rate Rhythm: regular rhythm Heart sounds: S1 normal heart sound present and S2 normal heart sound present GI Palpation (GI): Soft to palpation and nontender Auscultation: normal bowel sounds Skin General skin exam: rashes and/or lesions noted Office Procedures Nebulizer Treatment Nebulizer Treatment 12587-Hywmmepsl/MDI RX initial, or Nebulizer Subsequent Treatment Office Meds ipratropium 0.5 mg-albuterol 3 mg (2.5 mg base)/3 mL nebulization soln Performing Provider: Bry Morales MD Performing Location: [facility] Administered by: Florencia Bernal LPN on 04/25/23 13:10 Dose Route Admin Location Dispensed Lot Number Expiration Date NDC [employer] 3 mL inhalation 3 mL [id number] 08/16/24 7760-0284-76 [facility] Assessment & Plan Assessment & Plan (1) Asthma: Code(s): J45.909 - Unspecified asthma, uncomplicated Qualifiers: Asthma severity: moderate Asthma persistence: persistent Asthma complication type: with acute exacerbation Qualified Code(s): J45.41 - Moderate persistent asthma with (acute) exacerbation (2) Asthma-COPD overlap syndrome: Code(s): J44.9 - Chronic obstructive pulmonary disease, unspecified (3) JIMBO (obstructive sleep apnea): Code(s): G47.33 - Obstructive sleep apnea (adult) (pediatric) Plan Nebulizer with albuterol 2-4 times aday Start Prednisone taper start Doxycycline continue Trelegy 200mcg JULIO as needed Continue Claritin/astelin/Singulair Continue Fluticasone NS continue APAP, provided her a med F20 mask restart Dupexent for severe Allergic asthma once available F/U 2 months Orders: Orders AMB Nebulizer Treatment 04/25/23 J44.9 - Chronic obstructive pulmonary disease, unspecified Medications: New prednisone Take 2 tabs daily x 5 days, then 1 tab daily x 5 days 10 days 15 tabs 0RF doxycycline hyclate 100 mg PO BID 10 days 20 caps 0RF albuterol sulfate 2.5 mg (3 mL) inhalation Q6H 30 days PRN 180 mL 11RF shortness of breath or wheezing Changed From albuterol sulfate 90 mcg/actuation 2 puffs PO Q4-6H PRN To albuterol sulfate 90 mcg/actuation 2 puffs PO Q6H 30 days PRN 8.5 grams 11RF shortness of breath or wheezing Refilled [id number] 200-62.5-25 mcg (Trelegy Ellipta) 1 inh inhalation DAILY 30 days 60 ea 12RF Coding Level of Care Code Est Pt Level 4 (20181) Diagnoses Moderate persistent asthma with acute exacerbation J45.41 Asthma severity: moderate Asthma persistence: persistent Asthma complication type: with acute exacerbation Asthma-COPD overlap syndrome J44.9 JIMBO (obstructive sleep apnea) G47.33 CPT Codes Nebulizer Treatment - Nebulizer Treatment, initial or subsequent: 08961- Nebulizer/MDI RX initial, or Nebulizer Subsequent Treatment ([id number]) Time Spent (min) 17
== END 2023-04-25 13:22 | disposition home or self-care (01) ==
PROVIDERS: PCP Student in an Organized Health Care Education/Training Program; Visit Provider Hospitalist
DX: J45.41 Moderate persistent asthma with (acute) exacerbation (principal); J44.9 Chronic obstructive pulmonary disease, unspecified; G47.33 Obstructive sleep apnea (adult) (pediatric)
CPT/HCPCS: 99214

== ENCOUNTER → 2023-04-25 12:40 | Outpatient (BNVA) | payer OTHER, SELFPAY | PROVIDERS: PCP Student in an Organized Health Care Education/Training Program; Visit Provider Hospitalist | DX: J45.41 Moderate persistent asthma with (acute) exacerbation (principal); G47.33 Obstructive sleep apnea (adult) (pediatric); J44.9 Chronic obstructive pulmonary disease, unspecified | CPT/HCPCS: 94640; 99212 ==

== ENCOUNTER 2023-05-06 10:35 | Inpatient (IN) | payer OTHER, SELFPAY ==
[2023-05-06] VITALS (11 sets, daily range): BP systolic 106–152; BP diastolic 60–92; PULSE 78–116; RESP 18–28; TEMP 36–37.1; O2SAT 88–100; BMI 29.5
--- NOTE | ~2023-05-06 | XR_ITS ---
EXAMINATION: XR CHEST CLINICAL INFORMATION: Shortness of breath. COMPARISON: Chest x-ray 11/15/2019. TECHNIQUE: Frontal view of the chest was obtained. FINDINGS: The cardiomediastinal silhouette is within normal limits. The lungs are hypoexpanded with bronchovascular crowding. No focal consolidation or edema. No sizable effusion. No pneumothorax. XR/XR chest 1V IMPRESSION: No acute cardiopulmonary findings.
--- NOTE | ~2023-05-06 | XR_ITS ---
EXAMINATION: XR CHEST CLINICAL INFORMATION: Hypoxia. COMPARISON: CXR from 05/06/2023. Chest CT from 11/15/2019. TECHNIQUE: Frontal view of the chest was obtained. FINDINGS: Lungs are well expanded and without acute abnormality. No consolidation, pleural effusion or pneumothorax. The bronchial smith are chronically thickened. Query if there is any history of asthma. Cardiac silhouette has normal size and contour. No acute osseous abnormality. XR/XR chest 1V IMPRESSION: * No radiographic evidence of pneumonia. * The bronchial smith are chronically thickened.
--- NOTE | 2023-05-06 10:39 | ECG_ITS ---
Test Reason : SOB Blood Pressure : / mmHG Vent. Rate : 108 BPM Atrial Rate : 108 BPM P-R Int : 124 ms QRS Dur : 084 ms QT Int : 368 ms P-R-T Axes : 070 003 077 degrees QTc Int : 493 ms Sinus tachycardia Prolonged QT When compared with ECG of 14-OCT-2022 00:07, QT has lengthened Referred By: Jas Alfaro Electronically Signed By:GLENIS CARPENTER
--- NOTE | 2023-05-06 10:44 | ED_ITS ---
HPI - General Adult General Chief complaint: Dyspnea Stated complaint: SOB WHEEZING Time Seen by Provider: 05/06/23 10:40 Source: patient and EMS Mode of arrival: EMS Limitations: no limitations History of Present Illness HPI narrative: This is a 72-year-old female history of JIMBO, asthma, COPD, impingement of left shoulder, diabetes presenting to the emergency department shortness of breath, wheezing for the past week. Patient was seen at the [facility] this morning, where she was noted to be 87% on room air with significant shortness of breath and wheezing therefore advised to come into the hospital. Patient reports she has also had subjective fevers and chills and some substernal chest pressure. Denies sick contacts. Denies headache, vision changes, dizziness, nausea, vomiting, abdominal pain, diarrhea. Related Data Home Medications Medication Instructions Recorded Confirmed loratadine 10 mg tablet (Claritin) 10 mg PO DAILY 11/25/19 11/08/20 montelukast 10 mg tablet 10 mg PO DAILY 11/25/19 11/08/20 (Singulair) omeprazole 20 mg capsule,delayed 20 mg PO DAILY 11/25/19 11/08/20 release aspirin 81 mg tablet,delayed 81 mg PO DAILY 07/11/20 11/08/20 release cetirizine 10 mg tablet 10 mg PO DAILY 07/11/20 11/08/20 cholecalciferol (vitamin D3) 50 50 mcg PO DAILY 07/11/20 11/08/20 mcg (2,000 unit) capsule clarithromycin 500 mg tablet 500 mg PO BID 07/11/20 11/08/20 cyanocobalamin (vitamin B-12) 1,000 mcg PO DAILY 07/11/20 11/08/20 1,000 mcg tablet fluticasone propionate 50 1 spray intranasal DAILY 07/11/20 11/08/20 mcg/actuation nasal spray,suspension gabapentin 300 mg capsule 300 mg PO DAILY 07/11/20 11/08/20 glipizide 10 mg tablet, extended 10 mg PO DAILY 07/11/20 11/08/20 release 24 hr linagliptin 5 mg tablet 5 mg PO DAILY 07/11/20 11/08/20 metformin 500 mg tablet 500 mg PO BID 07/11/20 11/08/20 pantoprazole 40 mg tablet,delayed 40 mg PO DAILY 07/11/20 11/08/20 release sertraline 100 mg tablet 0 mg PO 07/11/20 11/08/20 ipratropium bromide 17 0 mcg inhalation 10/12/21 mcg/actuation HFA aerosol inhaler (Atrovent HFA) lisinopril 20 1 tab PO DAILY 10/12/21 mg-hydrochlorothiazide 12.5 mg tablet rosuvastatin 40 mg tablet 40 mg PO DAILY 10/12/21 buspirone 10 mg tablet 10 mg PO BID 02/25/22 Previous Rx's Medication Instructions Recorded azelastine 137 mcg (0.1 %) nasal 1 spray intranasal BID #30 mL 07/07/20 spray aerosol roflumilast 500 mcg tablet 500 mcg PO DAILY 30 days #30 tabs 07/11/20 (Daliresp) albuterol sulfate 2.5 mg/3 mL 2.5 mg (3 mL) inhalation QID PRN 10/27/20 (0.083 %) solution for nebulization shortness of breath or wheezing #360 mL prednisone 20 mg tablet See Rx Instructions PO DAILY 10 10/12/21 days #15 tabs prednisone 10 mg tablet See Rx Instructions PO DAILY 18 02/25/22 days #63 tabs azithromycin 250 mg tablet 250 mg PO 3XW #12 tabs 03/15/22 oxycodone 5 mg tablet 5 mg PO Q8H PRN pain #10 tabs 10/14/22 dupilumab 300 mg/2 mL subcutaneous 300 mg (2 mL) subcut Q2W #4 mL 03/25/23 syringe (Dupixent) albuterol sulfate 2.5 mg/3 mL 2.5 mg (3 mL) inhalation Q6H PRN 04/25/23 (0.083 %) solution for nebulization shortness of breath or wheezing 30 days #180 mL albuterol sulfate 90 mcg/actuation 2 puff PO Q6H PRN shortness of 04/25/23 aerosol inhaler breath or wheezing 30 days #8.5 grams doxycycline hyclate 100 mg capsule 100 mg PO BID 10 days #20 caps 04/25/23 fluticasone fur. 200 mcg-umeclid 1 inh inhalation DAILY 30 days #60 04/25/23 62.5 mcg-vilant 25 mcg ea inhalat.powder (Trelegy Ellipta) prednisone 10 mg tablet See Rx Instructions PO DAILY 10 04/25/23 days #15 tabs Allergies Allergy/AdvReac Type Severity Reaction Status Date / Time No Known Allergies Allergy Verified 04/25/23 12:54 [No Known Allergies*] Review of Systems 2 Review of Systems: Yes all other systems are reviewed and are negative [facility] Past Medical History Attestation statement: The following information was validated with the patient. Source: old records reviewed and nursing notes reviewed Medical History Asthma Asthma-COPD overlap syndrome Bilateral anterior knee pain Bladder cancer Diabetes Hypertension JIMBO (obstructive sleep apnea) Social History Social History (Updated 04/25/23 @ 12:55 by SHAKILA Hudson) Patient Tobacco Use Status: Former Tobacco user Tobacco use type: Cigarette Years Smoked: 17 years old, quit 1 year ago Advance Directives: No Advance Directives Information Provided: Yes Physical Exam ED Vital Signs: Vital Signs - 24 hr 05/06/23 10:41 05/06/23 10:54 05/06/23 12:58 Temperature 96.8 F 98.2 F Pulse Rate 78 93 100 Respiratory Rate 28 H 24 H 21 H Blood Pressure 126/66 119/68 Pulse Oximetry 100 95 Oxygen Delivery Method Aerosol Mask Nasal Cannula Oxygen Flow Rate 2 05/06/23 13:16 Temperature Pulse Rate 116 H Respiratory Rate 26 H Blood Pressure Pulse Oximetry 88 L Oxygen Delivery Method Room Air Oxygen Flow Rate BMI result Body Mass Index 29.5 vss Appearance: Alert.? Oriented X3.? Patient appears to be in mild acute distress Head: Normocephalic, atraumatic, no step-offs or deformities Eyes: Pupils equal, round and reactive to light.? ENT: Pharynx normal.? Neck: Normal inspection.? Neck supple.? CVS: Normal heart rate and rhythm.? Pulses normal.? Respiratory: Mild respiratory distress.? Breath sounds diminished with significant expiratory wheezing. Patient is speaking in short sentences..? Abdomen: Soft and nontender.? Skin: Skin warm and dry.? Normal skin color.? Normal skin turgor.? Extremities: No lower extremity edema.? No calf ttp. 5/5 strength to bilateral upper and lower extremities Neuro: Oriented X 3.? No motor deficit.? No sensory deficit. CN 2-12 intact Course Reevaluation(s) Reevaluation #1: CBC appears to have a leukopenia likely secondary to viral illness. Chemistry with elevated carbon dioxide likely secondary to chronic COPD. Troponin negative, EKG nonischemic. Patient positive for influenza. Time: 13:01 Reevaluation #2: 87-88% on RA w/ ambulation and labored breathing ( patient had to sit down) Patient not O2 dependent. O2 ordered. Still wheezing --> repsiratory called. Plan hospital admission for influenza hypoxia Time: 13:18 Medications Administered Discontinued Medications Generic Name Dose Route Start Last Admin Trade Name Coleen PRN Reason Stop Dose Admin Albuterol Sulfate 5 mg/ 0 mg 05/06/23 10:47 05/06/23 10:54 Albuterol/Ipratropium 3 ml INHALE 05/06/23 10:48 1 each ONCE ONE Administration Magnesium Sulfate 2 gm in 50 mls @ 25 mls/hr 05/06/23 10:43 05/06/23 13:16 Magnesium Sulfate/H2o IV 05/06/23 12:42 Infused ONCE ONE Infusion Methylprednisolone Sodium Succinate 125 mg 05/06/23 10:43 05/06/23 11:04 Methylprednisolone Sod Succ 125 Mg/2 Ml Vial IVPUSH 05/06/23 10:44 125 mg ONCE ONE Administration Medical Decision Making Medical Decision Making [facility] Narrative: 1046 72-year-old female presents with shortness of breath and wheezing for the past week also reporting subjective fevers and chills. On exam Mild respiratory distress.? Breath sounds diminished with significant expiratory wheezing. Patient is speaking in short sentences..? Concerns for bronchitis versus pneumonia versus viral illness. There does seem to be mild respiratory distress. Unlikely ACS, PE, dissection, pneumothorax. Unlikely CHF. Other differentials include chronic lung disease Plan at this time labs, imaging, viral testing. Will give magnesium, Solu- Medrol, bronch protocol ordered respiratory at the bedside Sx >48 hours no indication for tamiflu Differential Diagnosis Differential Diagnoses: The differential diagnosis associated with the presentation includes Concerns for bronchitis versus pneumonia versus viral illness. There does seem to be mild respiratory distress. Unlikely ACS, PE, dissection, pneumothorax. Unlikely CHF. Other differentials include chronic lung disease Admission/Observation Consideration of admission/observation: Escalation of care including admission/observation considered very likely Consult Healthcare Provider Management of the patient was discussed with: Hospitalist Lab Data [facility] Lab Attestation statement: I reviewed the patient's lab results. 05/06/23 10:59 05/06/23 10:59 Labs: Lab Results 05/06/23 Range/Units 10:59 WBC 3.9 L (4.8-10.8) X10*3/uL RBC 4.01 L (4.20-5.50) X10*6/uL Hgb 12.4 D (12.0-16.0) g/dl Hct 38.2 (37.0-47.0) % MCV 95.3 (80.0-98.0) fL MCH 30.9 (27.0-33.0) pg MCHC 32.5 (31.0-35.0) g/dl RDW 11.9 (11.0-16.0) % Plt Count 269 (160-400) X10*3/uL MPV 10.0 (9.4-12.3) fL Immature Gran % (Auto) 0.3 (0.0-0.4) % Neut % (Auto) 48.1 (45-73) % Lymph % (Auto) 42.5 H (20-40) % [place] % (Auto) 8.5 (2-11) % Eos % (Auto) 0.3 (0-4) % Baso % (Auto) 0.3 (0-2) % Lymph # (Auto) 1.7 (1.2-4.9) X10*3/uL [place] # (Auto) 0.3 (0.1-1.2) X10*3/uL Eos # (Auto) 0.0 (0.0-0.4) X10*3/uL Baso # (Auto) 0.0 (0.0-0.2) X10*3/uL Abs Immat Gran (auto) 0.01 (0.00-0.03) X10*3/uL Absolute Neuts (auto) 1.9 L (2.0-8.3) x10*3/uL Absolute Nucleated RBC 0.000 (0.0-0.012) X10*3/uL Nucleated RBC % (auto) 0.0 (0.0-0.2) /100WBC Hold Blue Top SEE NOTE Sodium 140 (135-145) mmol/L Potassium 3.5 (3.3-5.1) mmol/L Chloride 99 (96-108) mmol/L Carbon Dioxide 32 H (22-29) mmol/L Anion Gap 13 (12-20) BUN 19 H (9-16) mg/dL Creatinine 0.94 (0.5-1.4) mg/dL Estim Creat Clear Calc 46.0 Estimated GFR 59 Random Glucose 117 H (60-115) mg/dL Lactic Acid 0.9 (0.5-2.0) mmol/L Calcium 9.5 (8.4-10.2) mg/dL Total Bilirubin 0.3 (0.0-1.0) mg/dL AST 40 H (5-31) U/L ALT 19 (0-31) U/L Alkaline Phosphatase 67 (39-117) U/L Troponin I High Sens < 2.7 (<3.5-17.0) ng/L Total Protein 7.4 (6.5-8.0) g/dL Albumin 4.1 (3.5-5.0) g/dL Influenza Type A (PCR) POSITIVE A (Negative) Influenza Type B (PCR) NEGATIVE (Negative) RSV RNA Qual (PCR) NEGATIVE (Negative) SARS-CoV-2 RNA (RT-PCR) NEGATIVE (Negative) Independent Interpretation I performed an independent interpretation of an: Plain X-Ray Radiology Impression Discussion of test interpretation with radiology: I have reviewed the radiologist's reading. External Record Review External record reviewed: Inpatient record, Office record, Outpatient record, Prior outpatient labs, Prior outpatient radiology, Primary care record and Outside ED record Prescription Management I considered prescription management with: Other (given mag, solu-medrol) Chronic Conditions Patient?s care impacted by: Diabetes and Other (asthma, copd, dm ) Critical Care Time Critical Care Time Critical Care Time: Yes Total Critical Care Time: 35 Attestation: I attest to this time spent taking care of the patient, obtaining history, physical, reviewing labs, imaging, speaking to my attending, speaking to specialist. Discharge Plan Discharge Clinical Impression: Hypoxia, Asthma with exacerbation, Influenza A Patient Disposition: Admitted As Inpatient Prescriptions: No Action azelastine 137 mcg (0.1 %) aerosol,spray 1 spray intranasal BID Qty: 30 0RF azithromycin 250 mg tablet 250 mg PO 3XW Qty: 12 0RF Dupixent Syringe 300 mg/2 mL syringe 300 mg subcut Q2W Qty: 4 11RF oxycodone 5 mg tablet 5 mg PO Q8H PRN (Reason: pain) Qty: 10 0RF Rx Instructions: Partial Fill upon patient request. montelukast [Singulair] 10 mg tablet 10 mg PO DAILY omeprazole 20 mg capsule,delayed release(DR/EC) 20 mg PO DAILY loratadine [Claritin] 10 mg tablet 10 mg PO DAILY clarithromycin 500 mg tablet 500 mg PO BID Tradjenta 5 mg tablet 5 mg PO DAILY cholecalciferol (vitamin D3) 50 mcg (2,000 unit) capsule 50 mcg PO DAILY fluticasone propionate 50 mcg/actuation spray,suspension 1 spray intranasal DAILY pantoprazole 40 mg tablet,delayed release (DR/EC) 40 mg PO DAILY aspirin 81 mg tablet,delayed release (DR/EC) 81 mg PO DAILY cyanocobalamin (vitamin B-12) 1,000 mcg tablet 1,000 mcg PO DAILY glipizide 10 mg tablet extended release 24hr 10 mg PO DAILY cetirizine 10 mg tablet 10 mg PO DAILY metformin 500 mg tablet 500 mg PO BID gabapentin 300 mg capsule 300 mg PO DAILY sertraline 100 mg tablet 0 mg PO Daliresp 500 mcg tablet 500 mcg PO DAILY 30 Days Qty: 30 8RF albuterol sulfate 2.5 mg /3 mL (0.083 %) solution for nebulization 2.5 mg inhalation QID PRN (Reason: shortness of breath or wheezing) Qty: 360 11RF buspirone 10 mg tablet 10 mg PO BID prednisone 10 mg tablet See Rx Instructions PO DAILY 18 Days Qty: 63 0RF Rx Instructions: PO daily; Take 6 tabs daily x 3 days, then 5 tabs x 3 days, then 4 tabs x 3 days, then 3 tabs x 3 days, then 2 tabs daily x 3 days, then 1 tab x 3 days to complete. rosuvastatin 40 mg tablet 40 mg PO DAILY lisinopril-hydrochlorothiazide 20-12.5 mg tablet 1 tab PO DAILY Atrovent HFA 17 mcg/actuation HFA aerosol inhaler 0 mcg inhalation prednisone 20 mg tablet See Rx Instructions PO DAILY 10 Days Qty: 15 0RF Rx Instructions: PO daily; Take 2 tabs daily x 5 days, then 1 tablet daily x 5 days Trelegy Ellipta 200-62.5-25 mcg blister with device 1 inh inhalation DAILY 30 Days Qty: 60 12RF prednisone 10 mg tablet See Rx Instructions PO DAILY 10 Days Qty: 15 0RF Rx Instructions: Take 2 tabs daily x 5 days, then 1 tab daily x 5 days doxycycline hyclate 100 mg capsule 100 mg PO BID 10 Days Qty: 20 0RF albuterol sulfate 2.5 mg /3 mL (0.083 %) solution for nebulization 2.5 mg inhalation Q6H PRN (Reason: shortness of breath or wheezing) 30 Days Qty: 180 11RF albuterol sulfate 90 mcg/actuation HFA aerosol inhaler 2 puff PO Q6H PRN (Reason: shortness of breath or wheezing) 30 Days Qty: 8.5 11RF
[2023-05-06] MEDS: Albuterol Sulfate 5 MG, Albuterol/Iprat 2.5/0.5MG 3 ML 3 ML INHALE ×2 (10:54→13:39)
[2023-05-06] MEDS: Magnesium Sulfate/H2O 2 GM/50 ML PIGGYBACK IV (11:00)
[2023-05-06] MEDS: methylPREDNISolone Sod Succ 125 MG/2 ML VIAL IVPUSH (11:04)
[2023-05-06 11:10] LABS: MANUAL DIFF FLAG NO
[2023-05-06 11:17] LABS: Basophils Percent Auto 0.3 % (0-2); Eosinophils Percent Auto 0.3 % (0-4); Hematocrit 38.2 % (37.0-47.0); Hemoglobin 12.4 g/dl (12.0-16.0); Imm Gran Abs Auto 0.01 X10*3/uL (0.00-0.03); Imm Gran Pct Auto 0.3 % (0.0-0.4); Lymphocytes Absolute Auto 1.7 X10*3/uL (1.2-4.9); Lymphocytes Percent Auto 42.5 % (20-40); Mean Corpuscular HGB Conc 32.5 g/dl (31.0-35.0); Mean Corpuscular Hemoglobin 30.9 pg (27.0-33.0); Mean Corpuscular Volume 95.3 fL (80.0-98.0); Monocytes Absolute Auto 0.3 X10*3/uL (0.1-1.2); Monocytes Percent Auto 8.5 % (2-11); Neutrophils Absolute Auto 1.9 x10*3/uL (2.0-8.3); Neutrophils Percent Auto 48.1 % (45-73); Platelet Count 269 X10*3/uL (160-400); Red Blood Count 4.01 X10*6/uL (4.20-5.50); Red Cell Distribution Width 11.9 % (11.0-16.0); White Blood Count 3.9 X10*3/uL (4.8-10.8)
[2023-05-06 11:36] LABS: Lactic Acid 0.9 mmol/L (0.5-2.0)
[2023-05-06 11:49] LABS: Troponin-I High Sensitivity < 2.7 ng/L (<3.5-17.0)
[2023-05-06 11:50] LABS: Alanine Aminotransferase 19 U/L (0-31); Albumin Level 4.1 g/dL (3.5-5.0); Alkaline Phosphatase 67 U/L (39-117); Anion Gap 13 (12-20); Aspartate Amino Transferase 40 U/L (5-31); Bilirubin Total 0.3 mg/dL (0.0-1.0); Blood Urea Nitrogen 19 mg/dL (9-16); Calcium 9.5 mg/dL (8.4-10.2); Carbon Dioxide 32 mmol/L (22-29); Chloride 99 mmol/L (96-108); Estimated Glomerular Filt Rate 59; Glucose Random 117 mg/dL (60-115); Potassium 3.5 mmol/L (3.3-5.1); Sodium 140 mmol/L (135-145); Total Protein 7.4 g/dL (6.5-8.0)
[2023-05-06 12:25] LABS: Influenza A PCR POSITIVE (Negative); Influenza B PCR NEGATIVE (Negative); Resp Syncy Virus RNA Qual PCR NEGATIVE (Negative); SARS COV2 PCR INHOUSE NEGATIVE (Negative)
[2023-05-06] MEDS: Enoxaparin Sodium 40 MG/0.4 ML SYRINGE SUBCUT (13:42)
[2023-05-06] MEDS: Oseltamivir Phosphate 75 MG CAPSULE PO (13:53)
--- NOTE | 2023-05-06 14:24 | PC.NURSE ---
Patient resting quietly on stretcher at this time, wanting to eat, sats WNL on 2L WOB noted with movement/prolonged
--- NOTE | 2023-05-06 14:59 | P.HPHOSP_ITS ---
History of Present Illness Date of Service: 05/06/23 Chief Complaint: sob 72-year-old woman with history of asthma, hypertension, hyperlipidemia, diabetes presented to the ER with complaints of worsening shortness of breath and wheezing over the last 2 weeks especially with exertion. She denied recent illness, sick contacts. She lives alone. She denied chest pain, nausea, vomiting, diarrhea, recent travel. Upon arrival to the ER she was 87% on room air and placed on 2 L nasal cannula. She had expiratory wheezing with history of asthma. No fever leukocytosis in the ER. Influenza A positive. She was given albuterol, Tamiflu, Solu-Medrol and IV magnesium. She will be admitted for further management and treatment of acute hypoxic respiratory failure secondary to influenza A. Review of Systems 2 Review of Systems: Denies any recent fever chills or decrease in appetite respiratory see HPI cardiovascular denied chest pain gastrointestinal denies any dysphagia abdominal pain nausea vomiting or diarrhea genitourinary denies any dysuria frequency or hematuria musculoskeletal denies any joint pain or swelling neuropsych denies any weakness or seizures all other systems reviewed are negative [facility] Medical History (Updated 05/06/23 @ 16:28 by Zakia Morales NP) Asthma-COPD overlap syndrome JIMBO (obstructive sleep apnea) Bilateral anterior knee pain Hypertension Diabetes Bladder cancer Pertinent family history: Denied cardiac disease Social History (Updated 04/25/23 @ 12:55 by SHAKILA Hudson) Patient Tobacco Use Status: Former Tobacco user Tobacco use type: Cigarette Years Smoked: 17 years old, quit 1 year ago Smoked in Last 30 Days: No Use of substances other than those prescribed or required for medical reasons: No Advance Directives: No Advance Directives Information Provided: Yes Nutrition Risks: No Nutritional Risk Meds Allergies Allergy/AdvReac Type Severity Reaction Status Date / Time No Known Allergies Allergy Verified 04/25/23 12:54 [No Known Allergies*] Active Medications: Current Medications Enoxaparin Sodium (Enoxaparin Sodium 40 Mg/0.4 Ml Syringe) 40 mg SUBCUT Q24H [facility] Last Admin: 05/06/23 13:42 Dose: 40 mg Oseltamivir Phosphate (Oseltamivir Phosphate 30 Mg Capsule) 30 mg PO BID [facility] Stop: 05/10/23 21:01 Sodium Chloride (0.9 % Sodium Chloride Flush 3 Ml Syringe) 3 ml IVFLUSH QSHIFT [facility] Home Medications Medication Instructions Recorded Confirmed Last Taken Type montelukast 10 mg tablet 10 mg PO BEDTIME 11/25/19 05/06/23 05/05/23 History (Singulair) aspirin 81 mg tablet,delayed 81 mg PO BEDTIME 07/11/20 05/06/23 05/05/23 History release cetirizine 10 mg tablet 10 mg PO DAILY 07/11/20 05/06/23 05/06/23 History cholecalciferol (vitamin D3) 50 50 mcg PO DAILY 07/11/20 05/06/23 05/06/23 History mcg (2,000 unit) capsule fluticasone propionate 50 1 spray intranasal DAILY PRN 07/11/20 05/06/23 Unknown History mcg/actuation nasal Allergy Symptoms spray,suspension gabapentin 300 mg capsule 300 mg PO TID 07/11/20 05/06/23 05/06/23 History glipizide 10 mg tablet, extended 10 mg PO DAILY 07/11/20 05/06/23 05/06/23 History release 24 hr linagliptin 5 mg tablet 5 mg PO DAILY 07/11/20 05/06/23 05/06/23 History metformin 500 mg tablet 1,000 mg PO BEDTIME 07/11/20 05/06/23 05/06/23 History pantoprazole 40 mg tablet,delayed 40 mg PO DAILY 07/11/20 05/06/23 05/06/23 History release sertraline 100 mg tablet 150 mg PO DAILY 07/11/20 05/06/23 05/06/23 History lisinopril 20 1 tab PO DAILY 10/12/21 05/06/23 05/06/23 History mg-hydrochlorothiazide 12.5 mg tablet rosuvastatin 40 mg tablet 40 mg PO BEDTIME 10/12/21 05/06/23 05/06/23 History buspirone 10 mg tablet 10 mg PO BID 02/25/22 05/06/23 05/06/23 History albuterol sulfate 2.5 mg/3 mL 2.5 mg inhalation QID shortness of 05/06/23 05/06/23 05/06/23 History (0.083 %) solution for nebulization breath or wheezing cyanocobalamin (vitamin B-12) 1,000 mcg PO QPM 05/06/23 05/06/23 05/05/23 History 1,000 mcg tablet fluticasone fur. 200 mcg-umeclid 1 inh inhalation DAILY 05/06/23 05/06/23 05/06/23 History 62.5 mcg-vilant 25 mcg inhalat.powder (Trelegy Ellipta) ivermectin 3 mg tablet 15 mg PO Q14D 05/06/23 05/06/23 04/24/23 History metformin 500 mg tablet 500 mg PO DAILY 05/06/23 05/06/23 05/06/23 History prednisone 10 mg tablet See Rx Instructions PO DAILY 05/06/23 05/06/23 05/06/23 History Physical Exam 2 Vital Signs and Narrative: Vital Signs: Last Vital Signs Temp 98.2 F 05/06/23 12:58 Pulse 96 05/06/23 13:44 Resp 24 H 05/06/23 13:44 BP 132/72 05/06/23 13:44 Pulse Ox 99 05/06/23 13:44 O2 Del Method Nasal Cannula 05/06/23 13:44 O2 Flow Rate 2 05/06/23 13:44 Oxygen Flow Rate 5 05/06/23 10:41 BMI result Body Mass Index 29.5 Appearing in no acute distress head is normocephalic atraumatic eyes pupils are PERRLA sclera is anicteric mouth throat mucous membranes are intact and moist neck is supple no lymphadenopathy, no JVD noted lung sounds are clear to auscultation heart regular rate rhythm, clear S1, S2 positive bowel sounds, abdomen is soft, nontender neuro patient is alert x3, no focal deficits Results Labs 05/06/23 10:59 05/06/23 10:59 Labs: Laboratory Results - last 24 hr 05/06/23 10:59 MCV 95.3 MCH 30.9 MCHC 32.5 RDW 11.9 Plt Count 269 MPV 10.0 Immature Gran % (Auto) 0.3 Neut % (Auto) 48.1 Lymph % (Auto) 42.5 [place] % (Auto) 8.5 Eos % (Auto) 0.3 Baso % (Auto) 0.3 Lymph # (Auto) 1.7 [place] # (Auto) 0.3 Eos # (Auto) 0.0 Baso # (Auto) 0.0 Abs Immat Gran (auto) 0.01 Absolute Neuts (auto) 1.9 L Absolute Nucleated RBC 0.000 Nucleated RBC % (auto) 0.0 Hold Blue Top SEE NOTE Anion Gap 13 Estim Creat Clear Calc 46.0 Estimated GFR 59 Random Glucose 117 H Lactic Acid 0.9 Calcium 9.5 Total Bilirubin 0.3 AST 40 H ALT 19 Alkaline Phosphatase 67 Troponin I High Sens < 2.7 Total Protein 7.4 Albumin 4.1 Influenza Type A (PCR) POSITIVE A Influenza Type B (PCR) NEGATIVE RSV RNA Qual (PCR) NEGATIVE SARS-CoV-2 RNA (RT-PCR) NEGATIVE Imaging Radiologist's Impressions: Impressions Chest X-Ray 05/06/23 12:21 IMPRESSION: No acute cardiopulmonary findings. Assessment and Plan (1) Influenza A: Status: Acute (2) Asthma with exacerbation: Status: Acute Plan 72-year-old woman admitted with acute hypoxic respiratory failure secondary to influenza Acute hypoxic respiratory failure secondary to influenza A and asthma exacerbation cxr with clear lungs Started on Tamiflu Scheduled DuoNebs IV Solu-Medrol Supplemental oxygen, 2 liters, titrate to 91% ra DM2 ss, metformin, ada diet Mental health continue home medications HTN stable BP continue lisinopril and HCTZ GERD PPI HLD asa and Statin DVT prophylaxis with Lovenox Full code Patient requires 48 hours for treatment of respiratory failure secondary to influenza a requiring supplemental oxygen and close monitoring. Due to patient's age she is at high risk for decompensation Quality Stroke Does the patient have a stroke diagnosis?: No VTE Prior VTE?: No VTE Risk Level:: Medical - moderate - high VTE Device Contraindication: N/A - Device Ordered VTE Drug Contraindication: N/A - Med Ordered
[2023-05-06] MEDS: 0.9 % Sodium Chloride Flush 3 ML SYRINGE IVFLUSH ×2 (15:23→20:30)
[2023-05-06 18:25] LABS: Glucose, Whole Blood 356 mg/dL (60-115)
[2023-05-06] MEDS: Albuterol Sulfate (0.083%) 2.5 MG/3 ML VIAL.NEB INHALE (19:26)
[2023-05-06 20:20] LABS: Glucose, Whole Blood 309 mg/dL (60-115)
[2023-05-06] MEDS: Montelukast Sodium 10 MG TABLET PO (20:28)
[2023-05-06] MEDS: Cyanocobalamin (Vitamin B-12) 1,000 MCG TABLET 1000 MCG PO (20:28)
[2023-05-06] MEDS: metFORMIN HCl 1,000 MG TABLET 1000 MG PO (20:28)
[2023-05-06] MEDS: busPIRone HCl 10 MG TABLET PO (20:29)
[2023-05-06] MEDS: Aspirin Enteric Coated 81 MG TABLET.DR PO (20:29)
[2023-05-06] MEDS: Insulin Lispro 100 UNIT/ML 3 ML VIAL SUBCUT (20:29)
[2023-05-06] MEDS: Gabapentin 300 MG CAPSULE PO (20:29)
[2023-05-06] MEDS: Oseltamivir Phosphate 30 MG CAPSULE PO (20:29)
[2023-05-06] MEDS: Atorvastatin Calcium 80 MG TABLET PO (20:29)
[2023-05-07] VITALS (9 sets, daily range): BP systolic 107–151; BP diastolic 56–70; PULSE 76–98; RESP 16–20; TEMP 36.3–37.2; O2SAT 90–99
[2023-05-07] MEDS: Omeprazole 20 MG CAPSULE.DR PO (05:39)
[2023-05-07] MEDS: methylPREDNISolone Sod Succ 40 MG/ML VIAL IVPUSH ×2 (05:40→17:49)
[2023-05-07 07:04] LABS: Glucose, Whole Blood 110 mg/dL (60-115)
[2023-05-07] MEDS: Albuterol Sulfate (0.083%) 2.5 MG/3 ML VIAL.NEB INHALE ×4 (07:26→19:57)
[2023-05-07] MEDS: Loratadine 10 MG TABLET PO (08:43)
[2023-05-07] MEDS: Oseltamivir Phosphate 30 MG CAPSULE PO ×2 (08:43→20:34)
[2023-05-07] MEDS: Sertraline HCL 50 MG TABLET 150 MG PO (08:43)
[2023-05-07] MEDS: metFORMIN HCl 500 MG TABLET PO (08:43)
[2023-05-07] MEDS: Gabapentin 300 MG CAPSULE PO ×2 (08:44→20:34)
[2023-05-07] MEDS: Cholecalciferol (Vitamin D3) 25 MCG TABLET 50 MCG PO (08:44)
[2023-05-07] MEDS: hydroCHLOROthiazide 12.5 MG TABLET PO (08:44)
[2023-05-07] MEDS: busPIRone HCl 10 MG TABLET PO ×2 (08:44→20:34)
[2023-05-07] MEDS: lisinopriL 20 MG TABLET PO (08:44)
[2023-05-07] MEDS: 0.9 % Sodium Chloride Flush 3 ML SYRINGE IVFLUSH ×3 (08:47→20:36)
--- NOTE | 2023-05-07 09:32 | MHC.CM.PN ---
CM met with Patient at bedside with the assist of a [facility] [employer] and addressed IMM with her (original was given to Patient and a copy has been placed on the chart). CM assisted Patient with the completion of a HCP and she named her Daughter/[place] as her Agent. 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 Home/resume said services is the goal and CM has initiated and will follow for dc planning. PCP is Dr. Gaines.
--- NOTE | 2023-05-07 10:16 | MHC.CM.PN ---
Patient does not have home O2.
[2023-05-07 11:01] LABS: Glucose, Whole Blood 213 mg/dL (60-115)
[2023-05-07] MEDS: Enoxaparin Sodium 40 MG/0.4 ML SYRINGE SUBCUT (12:51)
[2023-05-07] MEDS: Insulin Lispro 100 UNIT/ML 3 ML VIAL SUBCUT ×2 (12:51→20:34)
--- NOTE | 2023-05-07 13:18 | P.PNIM_ITS ---
Subjective Subjective Date of Service: 05/07/23 Interval History: Being followed for influenza a infection, with hypoxia. Complaining of persistent shortness of breath cough complaining of rib pain due to persistent coughing, requiring oxygen to maintain finger oximetry 93 94% not on home O2. Denies fever, no chills, tolerating diet no nausea, no vomiting, no abdominal pain. Review of Systems All other system reviewed and negative. Physical Exam 2 Vital Signs: Vital Signs: Last Vital Signs Temp 98.4 F 05/07/23 11:08 Pulse 92 05/07/23 11:31 Resp 20 05/07/23 11:31 BP 120/59 L 05/07/23 11:08 Pulse Ox 95 05/07/23 11:08 O2 Del Method Nasal Cannula 05/07/23 11:08 O2 Flow Rate 2 05/07/23 11:08 Oxygen Flow Rate 2 05/06/23 23:08 BMI result Body Mass Index 29.5 Const: Other: General awake alert x3, in no acute distress. Neck supple no JVD. CVS regular rate rhythm, Respiratory lungs diminished, coarse bs Gastrointestinal abdomen soft, non tender, bowel sounds audible Extremities no edema. Neuro non focal Skin no rash Psych appropriate affect Objective Data Active Medications Albuterol Sulfate (Albuterol Sulfate (0.083%) 2.5 Mg/3 Ml Vial.Neb) 2.5 mg INHALE RQ4H WHILE AWAKE [facility] Last Admin: 05/07/23 11:30 Dose: 2.5 mg Documented By: MARTHA Aspirin (Aspirin Enteric Coated 81 Mg Tablet.) 81 mg PO BEDTIME [facility] Last Admin: 05/06/23 20:29 Dose: 81 mg Documented By: MIGUEL Atorvastatin Calcium (Atorvastatin Calcium 80 Mg Tablet) 80 mg PO BEDTIME [facility] Last Admin: 05/06/23 20:29 Dose: 80 mg Documented By: MIGUEL Buspirone HCl (Buspirone Hcl 10 Mg Tablet) 10 mg PO BID [facility] Last Admin: 05/07/23 08:44 Dose: 10 mg Documented By: DOBROB Cyanocobalamin (Cyanocobalamin (Vitamin B-12) 1,000 Mcg Tablet) 1,000 mcg PO BEDTIME [facility] Last Admin: 05/06/23 20:28 Dose: 1,000 mcg Documented By: MIGUEL Dextrose (Dextrose 50 % 25 Gm/50 Ml Syringe) 25 gm IVPUSH Q15M PRN; Protocol PRN Reason: per Hypoglycemia Standing Ord. Enoxaparin Sodium (Enoxaparin Sodium 40 Mg/0.4 Ml Syringe) 40 mg SUBCUT Q24H [facility] Last Admin: 05/07/23 12:51 Dose: 40 mg Documented By: VONNIE Gabapentin (Gabapentin 300 Mg Capsule) 300 mg PO TID [facility] Last Admin: 05/07/23 08:44 Dose: 300 mg Documented By: VONNIE Glucose (Glucose Gel 15 Gm Gel..Gram.) 15 gm PO Q15M PRN; Protocol PRN Reason: per Hypoglycemia Standing Ord. Hydrochlorothiazide (Hydrochlorothiazide 12.5 Mg Tablet) 12.5 mg PO DAILY [facility] Last Admin: 05/07/23 08:44 Dose: 12.5 mg Documented By: VONNIE Insulin Human Lispro (Insulin Lispro 100 Unit/Ml 3 Ml Vial) 0 unit SUBCUT QIDACHS [facility]; Protocol Last Admin: 05/07/23 12:51 Dose: 4 unit Documented By: VONNIE Lisinopril (Lisinopril 20 Mg Tablet) 20 mg PO DAILY [facility] Last Admin: 05/07/23 08:44 Dose: 20 mg Documented By: VONNIE Loratadine (Loratadine 10 Mg Tablet) 10 mg PO DAILY [facility] Last Admin: 05/07/23 08:43 Dose: 10 mg Documented By: VONNIE Metformin HCl (Metformin Hcl 500 Mg Tablet) 500 mg PO DAILY [facility] Last Admin: 05/07/23 08:43 Dose: 500 mg Documented By: VONNIE Metformin HCl (Metformin Hcl 1,000 Mg Tablet) 1,000 mg PO BEDTIME [facility] Last Admin: 05/06/23 20:28 Dose: 1,000 mg Documented By: MIGUEL Methylprednisolone Sodium Succinate (Methylprednisolone Sod Succ 40 Mg/Ml Vial) 40 mg IVPUSH Q8H [facility] Last Admin: 05/07/23 05:40 Dose: 40 mg Documented By: MIGUEL Montelukast Sodium (Montelukast Sodium 10 Mg Tablet) 10 mg PO BEDTIME [facility] Last Admin: 05/06/23 20:28 Dose: 10 mg Documented By: MIGUEL Omeprazole (Omeprazole 20 Mg Capsule.) 20 mg PO DAILY@0630 [facility] Last Admin: 05/07/23 05:39 Dose: 20 mg Documented By: MIGUEL Oseltamivir Phosphate (Oseltamivir Phosphate 30 Mg Capsule) 30 mg PO BID [facility] Stop: 05/10/23 21:01 Last Admin: 05/07/23 08:43 Dose: 30 mg Documented By: BROJo Ann Sertraline HCl (Sertraline Hcl 50 Mg Tablet) 150 mg PO DAILY [facility] Last Admin: 05/07/23 08:43 Dose: 150 mg Documented By: VONNIE Sodium Chloride (0.9 % Sodium Chloride Flush 3 Ml Syringe) 3 ml IVFLUSH QSHIFT [facility] Last Admin: 05/07/23 08:47 Dose: 3 ml Documented By: VONNIE Vitamin D (Cholecalciferol (Vitamin D3) 25 Mcg Tablet) 50 mcg PO DAILY [facility] Last Admin: 05/07/23 08:44 Dose: 50 mcg Documented By: VONNIE Labs 05/06/23 10:59 05/06/23 10:59 Labs: Laboratory Results - last 24 hr 05/06/23 05/06/23 05/07/23 18:18 20:16 06:54 POC Glucose 356 H* 309 H 110 05/07/23 10:57 POC Glucose 213 H Assessment and Plan (1) Influenza A: Status: Acute (2) Asthma with exacerbation: Status: Acute Plan 72-year-old woman admitted with acute hypoxic respiratory failure secondary to influenza Acute hypoxic respiratory failure secondary to influenza A and acute exacerbation of moderate persistent asthma. Persistent symptoms of shortness of breath and cough cxr with clear lungs Continue Tamiflu ,Scheduled DuoNebs and IV Solu-Medrol Wean oxygen as tolerated not on home O2. DM2 Elevated blood sugars likely due to steroids continue ISS, metformin, ada diet Mood disorder continue home medications HTN stable BP continue lisinopril and HCTZ GERD PPI HLD Continue asa and Statin DVT prophylaxis with Lovenox Full code Patient requires continued inpatient hospitalization for treatment of respiratory failure secondary to influenza a requiring supplemental oxygen and close monitoring. Due to patient's age and underlying moderate persistent asthma she is at high risk for decompensation Quality Stroke Does the patient have a stroke diagnosis?: No VTE Prior VTE?: No VTE Risk Level:: Medical - moderate - high VTE Device Contraindication: N/A - Device Ordered VTE Drug Contraindication: N/A - Med Ordered
[2023-05-07] MEDS: guaiFENesin DM 200/20/10 ML 10 ML SYRUP PO ×2 (16:17→20:34)
[2023-05-07 16:20] LABS: Glucose, Whole Blood 112 mg/dL (60-115)
[2023-05-07 20:12] LABS: Glucose, Whole Blood 173 mg/dL (60-115)
[2023-05-07] MEDS: Aspirin Enteric Coated 81 MG TABLET.DR PO (20:34)
[2023-05-07] MEDS: metFORMIN HCl 1,000 MG TABLET 1000 MG PO (20:34)
[2023-05-07] MEDS: Atorvastatin Calcium 80 MG TABLET PO (20:34)
[2023-05-07] MEDS: Montelukast Sodium 10 MG TABLET PO (20:34)
[2023-05-07] MEDS: Cyanocobalamin (Vitamin B-12) 1,000 MCG TABLET 1000 MCG PO (20:34)
[2023-05-08] VITALS (11 sets, daily range): BP systolic 112–143; BP diastolic 61–75; PULSE 75–102; RESP 18–24; TEMP 36.2–37.3; O2SAT 94–97
[2023-05-08] MEDS: Acetaminophen 325 MG TABLET 975 MG PO (00:49)
[2023-05-08] MEDS: Omeprazole 20 MG CAPSULE.DR PO (05:46)
[2023-05-08] MEDS: methylPREDNISolone Sod Succ 40 MG/ML VIAL IVPUSH ×2 (05:46→18:27)
[2023-05-08 07:25] LABS: Glucose, Whole Blood 128 mg/dL (60-115)
[2023-05-08] MEDS: Albuterol Sulfate (0.083%) 2.5 MG/3 ML VIAL.NEB INHALE ×2 (07:48→11:22)
[2023-05-08] MEDS: Loratadine 10 MG TABLET PO (09:31)
[2023-05-08] MEDS: busPIRone HCl 10 MG TABLET PO ×2 (09:31→22:14)
[2023-05-08] MEDS: Oseltamivir Phosphate 30 MG CAPSULE PO ×2 (09:31→22:15)
[2023-05-08] MEDS: metFORMIN HCl 500 MG TABLET PO (09:32)
[2023-05-08] MEDS: Cholecalciferol (Vitamin D3) 25 MCG TABLET 50 MCG PO (09:32)
[2023-05-08] MEDS: lisinopriL 20 MG TABLET PO (09:32)
[2023-05-08] MEDS: hydroCHLOROthiazide 12.5 MG TABLET PO (09:32)
[2023-05-08] MEDS: Sertraline HCL 50 MG TABLET 150 MG PO (09:32)
[2023-05-08] MEDS: guaiFENesin DM 200/20/10 ML 10 ML SYRUP PO ×3 (09:32→22:14)
[2023-05-08] MEDS: 0.9 % Sodium Chloride Flush 3 ML SYRINGE IVFLUSH ×2 (09:34→16:39)
[2023-05-08 11:40] LABS: Glucose, Whole Blood 241 mg/dL (60-115)
--- NOTE | 2023-05-08 12:49 | P.PNIM_ITS ---
Subjective Subjective Date of Service: 05/08/23 Interval History: Complaining of persistent shortness of breath and cough, denies fever, no chills, BROWN stable on 2 L of oxygen, not on home O2, no acute issues overnight, tolerating diet no nausea no vomiting or abdominal pain. Review of Systems All other system reviewed and negative. Physical Exam 2 Vital Signs: Vital Signs: Last Vital Signs Temp 97.2 F 05/08/23 11:42 Pulse 99 05/08/23 11:42 Resp 20 05/08/23 11:42 BP 128/70 05/08/23 11:42 Pulse Ox 96 05/08/23 11:42 O2 Del Method Nasal Cannula 05/08/23 11:42 O2 Flow Rate 2 05/08/23 11:42 Oxygen Flow Rate 2 05/06/23 23:08 BMI result Body Mass Index 29.5 Const: Other: General awake alert x3, sick looking, in no acute distress. Neck supple no JVD. CVS regular rate rhythm, Respiratory lungs diminished, bilateral wheeze, coarse bs Gastrointestinal abdomen soft, non tender, bowel sounds audible Extremities no edema. Neuro non focal Skin no rash Psych appropriate affect Objective Data Active Medications Acetaminophen (Acetaminophen 325 Mg Tablet) 975 mg PO Q6H PRN PRN Reason: Headache Last Admin: 05/08/23 00:49 Dose: 975 mg Documented By: FELICIA Albuterol Sulfate (Albuterol Sulfate (0.083%) 2.5 Mg/3 Ml Vial.Neb) 2.5 mg INHALE RQ4H WHILE AWAKE [facility] Last Admin: 05/08/23 11:22 Dose: 2.5 mg Documented By: ESAU Aspirin (Aspirin Enteric Coated 81 Mg Tablet.) 81 mg PO BEDTIME [facility] Last Admin: 05/07/23 20:34 Dose: 81 mg Documented By: FELICIA Atorvastatin Calcium (Atorvastatin Calcium 80 Mg Tablet) 80 mg PO BEDTIME [facility] Last Admin: 05/07/23 20:34 Dose: 80 mg Documented By: FELICIA Buspirone HCl (Buspirone Hcl 10 Mg Tablet) 10 mg PO BID [facility] Last Admin: 05/08/23 09:31 Dose: 10 mg Documented By: LOVE Cyanocobalamin (Cyanocobalamin (Vitamin B-12) 1,000 Mcg Tablet) 1,000 mcg PO BEDTIME [facility] Last Admin: 05/07/23 20:34 Dose: 1,000 mcg Documented By: FELICIA Dextrose (Dextrose 50 % 25 Gm/50 Ml Syringe) 25 gm IVPUSH Q15M PRN; Protocol PRN Reason: per Hypoglycemia Standing Ord. Enoxaparin Sodium (Enoxaparin Sodium 40 Mg/0.4 Ml Syringe) 40 mg SUBCUT Q24H [facility] Last Admin: 05/07/23 12:51 Dose: 40 mg Documented By: VONNIE Gabapentin (Gabapentin 300 Mg Capsule) 300 mg PO TID [facility] Last Admin: 05/08/23 09:35 Dose: Not Given Documented By: LOVE Non-Admin Reason: Patient Refused Glucose (Glucose Gel 15 Gm Gel..Gram.) 15 gm PO Q15M PRN; Protocol PRN Reason: per Hypoglycemia Standing Ord. Guaifenesin/Dextromethorphan (Guaifenesin Dm 200/20/10 Ml 10 Ml Syrup) 10 ml PO TID [facility] Last Admin: 05/08/23 09:32 Dose: 10 ml Documented By: LOVE Hydrochlorothiazide (Hydrochlorothiazide 12.5 Mg Tablet) 12.5 mg PO DAILY [facility] Last Admin: 05/08/23 09:32 Dose: 12.5 mg Documented By: LOVE Insulin Human Lispro (Insulin Lispro 100 Unit/Ml 3 Ml Vial) 0 unit SUBCUT QIDACHS [facility]; Protocol Last Admin: 05/08/23 07:46 Dose: Not Given Documented By: LOVE Non-Admin Reason: No Insulin Coverage Lisinopril (Lisinopril 20 Mg Tablet) 20 mg PO DAILY [facility] Last Admin: 05/08/23 09:32 Dose: 20 mg Documented By: LOVE Loratadine (Loratadine 10 Mg Tablet) 10 mg PO DAILY [facility] Last Admin: 05/08/23 09:31 Dose: 10 mg Documented By: LOVE Metformin HCl (Metformin Hcl 500 Mg Tablet) 500 mg PO DAILY [facility] Last Admin: 05/08/23 09:32 Dose: 500 mg Documented By: LOVE Metformin HCl (Metformin Hcl 1,000 Mg Tablet) 1,000 mg PO BEDTIME [facility] Last Admin: 05/07/23 20:34 Dose: 1,000 mg Documented By: FELICIA Methylprednisolone Sodium Succinate (Methylprednisolone Sod Succ 40 Mg/Ml Vial) 40 mg IVPUSH Q12H [facility] Last Admin: 05/08/23 05:46 Dose: 40 mg Documented By: FELICIA Montelukast Sodium (Montelukast Sodium 10 Mg Tablet) 10 mg PO BEDTIME [facility] Last Admin: 05/07/23 20:34 Dose: 10 mg Documented By: FELICIA Omeprazole (Omeprazole 20 Mg Capsule.) 20 mg PO DAILY@0630 [facility] Last Admin: 05/08/23 05:46 Dose: 20 mg Documented By: FELICIA Oseltamivir Phosphate (Oseltamivir Phosphate 30 Mg Capsule) 30 mg PO BID [facility] Stop: 05/10/23 21:01 Last Admin: 05/08/23 09:31 Dose: 30 mg Documented By: LOVE Sertraline HCl (Sertraline Hcl 50 Mg Tablet) 150 mg PO DAILY [facility] Last Admin: 05/08/23 09:32 Dose: 150 mg Documented By: LOVE Sodium Chloride (0.9 % Sodium Chloride Flush 3 Ml Syringe) 3 ml IVFLUSH QSHIFT [facility] Last Admin: 05/08/23 09:34 Dose: 3 ml Documented By: LOVE Vitamin D (Cholecalciferol (Vitamin D3) 25 Mcg Tablet) 50 mcg PO DAILY [facility] Last Admin: 05/08/23 09:32 Dose: 50 mcg Documented By: LOVE Labs 05/06/23 10:59 05/06/23 10:59 Labs: Laboratory Results - last 24 hr 05/07/23 05/07/23 05/08/23 16:17 20:08 07:22 POC Glucose 112 173 H 128 H 05/08/23 11:36 POC Glucose 241 H Microbiology Microbiology Results: Microbiology 05/06/23 11:20 Blood Culture - Preliminary Blood - Venous No growth after 24 hours. 05/06/23 10:57 Blood Culture - Preliminary Blood - Venous No growth after 24 hours. Assessment and Plan (1) Influenza A: Status: Acute (2) Asthma with exacerbation: Status: Acute Plan 72-year-old woman admitted with acute hypoxic respiratory failure secondary to influenza Acute hypoxic respiratory failure secondary to influenza A and acute exacerbation of moderate persistent asthma. Persistent symptoms of shortness of breath and cough cxr with clear lungs Continue Tamiflu ,Scheduled DuoNebs and dc albuterol and increase dose of IV Solu-Medrol. Wean oxygen as tolerated not on home O2. DM2 Elevated blood sugars likely due to steroids continue ISS, metformin, ada diet Mood disorder continue home medications HTN stable BP continue lisinopril and HCTZ GERD PPI HLD Continue asa and Statin DVT prophylaxis with Lovenox Full code Patient requires continued inpatient hospitalization for treatment of respiratory failure secondary to influenza a requiring supplemental oxygen and close monitoring. Due to patient's age and underlying moderate persistent asthma she is at high risk for decompensation Quality Stroke Does the patient have a stroke diagnosis?: No VTE Prior VTE?: No VTE Risk Level:: Medical - moderate - high VTE Device Contraindication: N/A - Device Ordered VTE Drug Contraindication: N/A - Med Ordered
[2023-05-08] MEDS: Insulin Lispro 100 UNIT/ML 3 ML VIAL SUBCUT (13:33)
[2023-05-08] MEDS: Enoxaparin Sodium 40 MG/0.4 ML SYRINGE SUBCUT (13:33)
[2023-05-08] MEDS: Albuterol/Iprat 2.5/0.5MG 3 ML AMPUL.NEB INHALE ×2 (15:19→18:40)
[2023-05-08 16:40] LABS: Glucose, Whole Blood 141 mg/dL (60-115)
[2023-05-08 19:54] LABS: Glucose, Whole Blood 124 mg/dL (60-115)
[2023-05-08] MEDS: Atorvastatin Calcium 80 MG TABLET PO (22:14)
[2023-05-08] MEDS: Montelukast Sodium 10 MG TABLET PO (22:14)
[2023-05-08] MEDS: metFORMIN HCl 1,000 MG TABLET 1000 MG PO (22:14)
[2023-05-08] MEDS: Aspirin Enteric Coated 81 MG TABLET.DR PO (22:15)
[2023-05-08] MEDS: Cyanocobalamin (Vitamin B-12) 1,000 MCG TABLET 1000 MCG PO (22:15)
[2023-05-09] VITALS (11 sets, daily range): BP systolic 113–156; BP diastolic 61–78; PULSE 86–126; RESP 18–28; TEMP 36.3–37; O2SAT 88–98
--- NOTE | 2023-05-09 02:16 | PC.NURSE ---
Assumed care of patient at 19:00 (05/07). Pt seen on s4 for AHRF 2/2 Flu. Droplet precautions maintained as ordered. Pt is A&Ox4, Croatian speaking only. Tip Tester used at bedside. NSR on tele. VSS. Patient denies chest pain and sob. Breathing is even and unlabored without distress, continues on 2L nc with active MD order. Spo2 maintaining mid 90's on continuous spo2 monitoring as ordered. Denies n/v. Tolerated po meds whole without issue. Refuses gabapentin. Pt is on scheduled tamiflu, updrafts, and solumedrol. POC ahch 124, no ISS coverage. Pt denies pain and offers no acute complaints. Bed alarm and high falls safety measures in place. Please see shift assessment, tasks, and MAR for full details. Handoff report given to oncoming RN at 23:00.
[2023-05-09] MEDS: Omeprazole 20 MG CAPSULE.DR PO (05:53)
[2023-05-09] MEDS: methylPREDNISolone Sod Succ 40 MG/ML VIAL IVPUSH ×2 (05:54→16:19)
[2023-05-09] MEDS: 0.9 % Sodium Chloride Flush 3 ML SYRINGE IVFLUSH ×3 (05:54→19:47)
[2023-05-09] MEDS: Albuterol/Iprat 2.5/0.5MG 3 ML AMPUL.NEB INHALE ×4 (07:52→19:25)
[2023-05-09 08:10] LABS: Glucose, Whole Blood 114 mg/dL (60-115)
--- NOTE | 2023-05-09 10:13 | MHC.CM.PN ---
Per ROUNDS discussion, Patient is not yet medically cleared for dc (IV Solu Medrol); home/resume [employer] is the goal and CM will continue to follow.
[2023-05-09] MEDS: guaiFENesin DM 200/20/10 ML 10 ML SYRUP PO ×3 (10:20→19:47)
[2023-05-09] MEDS: metFORMIN HCl 500 MG TABLET PO (10:20)
[2023-05-09] MEDS: Sertraline HCL 50 MG TABLET 150 MG PO (10:20)
[2023-05-09] MEDS: Oseltamivir Phosphate 30 MG CAPSULE PO ×2 (10:21→19:46)
[2023-05-09] MEDS: Loratadine 10 MG TABLET PO (10:21)
[2023-05-09] MEDS: lisinopriL 20 MG TABLET PO (10:21)
[2023-05-09] MEDS: Cholecalciferol (Vitamin D3) 25 MCG TABLET 50 MCG PO (10:21)
[2023-05-09] MEDS: hydroCHLOROthiazide 12.5 MG TABLET PO (10:21)
[2023-05-09] MEDS: busPIRone HCl 10 MG TABLET PO ×2 (10:21→19:46)
[2023-05-09 12:10] LABS: Glucose, Whole Blood 166 mg/dL (60-115)
[2023-05-09] MEDS: Insulin Lispro 100 UNIT/ML 3 ML VIAL SUBCUT ×2 (12:26→19:53)
[2023-05-09] MEDS: Enoxaparin Sodium 40 MG/0.4 ML SYRINGE SUBCUT (12:30)
--- NOTE | 2023-05-09 14:50 | HO.PM.IMPN ---
Subjective Subjective Date of Service: 05/09/23 Interval History: Being followed for acute hypoxic respiratory failure. Feeling better with less shortness of breath, but significant dyspnea on exertion, oxygenation dropped to 88 with ambulation, persistent cough, no fevers, no chills, no acute issues overnight Review of Systems All other system reviewed and negative. Physical Exam Vital Signs: Vital Signs: Last Vital Signs Temp 98.3 F 05/09/23 11:04 Pulse 94 05/09/23 12:34 Resp 24 H 05/09/23 12:34 BP 141/68 H 05/09/23 11:04 Pulse Ox 93 05/09/23 11:04 O2 Del Method Nasal Cannula 05/09/23 11:04 O2 Flow Rate 2 05/09/23 11:04 Oxygen Flow Rate 2 05/06/23 23:08 BMI result Body Mass Index 29.5 Const: Other: General awake alert x3, in no acute distress. Neck supple no JVD. CVS regular rate rhythm, Respiratory lungs bilateral wheeze, coarse bs Gastrointestinal abdomen soft, non tender, bowel sounds audible Extremities no edema. Neuro non focal Skin no rash Psych appropriate affect Objective Data Active Medications Acetaminophen (Acetaminophen 325 Mg Tablet) 975 mg PO Q6H PRN PRN Reason: Headache Last Admin: 05/08/23 00:49 Dose: 975 mg Documented By: FELICIA Albuterol/Ipratropium (Albuterol/Iprat 2.5/0.5mg 3 Ml Ampul.Neb) 3 ml INHALE RQ4H WHILE AWAKE [facility] Last Admin: 05/09/23 12:32 Dose: 3 ml Documented By: KIMBERLY Aspirin (Aspirin Enteric Coated 81 Mg Tablet.) 81 mg PO BEDTIME [facility] Last Admin: 05/08/23 22:15 Dose: 81 mg Documented By: NILDA Atorvastatin Calcium (Atorvastatin Calcium 80 Mg Tablet) 80 mg PO BEDTIME [facility] Last Admin: 05/08/23 22:14 Dose: 80 mg Documented By: NILDA Buspirone HCl (Buspirone Hcl 10 Mg Tablet) 10 mg PO BID [facility] Last Admin: 05/09/23 10:21 Dose: 10 mg Documented By: JOSE DAVID Cyanocobalamin (Cyanocobalamin (Vitamin B-12) 1,000 Mcg Tablet) 1,000 mcg PO BEDTIME [facility] Last Admin: 05/08/23 22:15 Dose: 1,000 mcg Documented By: NILDA Dextrose (Dextrose 50 % 25 Gm/50 Ml Syringe) 25 gm IVPUSH Q15M PRN; Protocol PRN Reason: per Hypoglycemia Standing Ord. Enoxaparin Sodium (Enoxaparin Sodium 40 Mg/0.4 Ml Syringe) 40 mg SUBCUT Q24H [facility] Last Admin: 05/09/23 12:30 Dose: 40 mg Documented By: JOSE DAVID Gabapentin (Gabapentin 300 Mg Capsule) 300 mg PO TID [facility] Last Admin: 05/09/23 10:23 Dose: Not Given Documented By: JOSE DAVID Non-Admin Reason: Patient Refused Glucose (Glucose Gel 15 Gm Gel..Gram.) 15 gm PO Q15M PRN; Protocol PRN Reason: per Hypoglycemia Standing Ord. Guaifenesin/Dextromethorphan (Guaifenesin Dm 200/20/10 Ml 10 Ml Syrup) 10 ml PO TID [facility] Last Admin: 05/09/23 10:20 Dose: 10 ml Documented By: JOSE DAVID Hydrochlorothiazide (Hydrochlorothiazide 12.5 Mg Tablet) 12.5 mg PO DAILY [facility] Last Admin: 05/09/23 10:21 Dose: 12.5 mg Documented By: JOSE DAVID Insulin Human Lispro (Insulin Lispro 100 Unit/Ml 3 Ml Vial) 0 unit SUBCUT QIDACHS [facility]; Protocol Last Admin: 05/09/23 12:26 Dose: 2 unit Documented By: JOSE DAVID Lisinopril (Lisinopril 20 Mg Tablet) 20 mg PO DAILY [facility] Last Admin: 05/09/23 10:21 Dose: 20 mg Documented By: JOSE DAVID Loratadine (Loratadine 10 Mg Tablet) 10 mg PO DAILY [facility] Last Admin: 05/09/23 10:21 Dose: 10 mg Documented By: JOSE DAVID Metformin HCl (Metformin Hcl 500 Mg Tablet) 500 mg PO DAILY [facility] Last Admin: 05/09/23 10:20 Dose: 500 mg Documented By: JOSE DAVID Metformin HCl (Metformin Hcl 1,000 Mg Tablet) 1,000 mg PO BEDTIME [facility] Last Admin: 05/08/23 22:14 Dose: 1,000 mg Documented By: NILDA Methylprednisolone Sodium Succinate (Methylprednisolone Sod Succ 40 Mg/Ml Vial) 40 mg IVPUSH Q12H [facility] Last Admin: 05/09/23 05:54 Dose: 40 mg Documented By: STEPHANIE Montelukast Sodium (Montelukast Sodium 10 Mg Tablet) 10 mg PO BEDTIME [facility] Last Admin: 05/08/23 22:14 Dose: 10 mg Documented By: NILDA Omeprazole (Omeprazole 20 Mg Capsule.) 20 mg PO DAILY@0630 [facility] Last Admin: 05/09/23 05:53 Dose: 20 mg Documented By: STEPHANIE Oseltamivir Phosphate (Oseltamivir Phosphate 30 Mg Capsule) 30 mg PO BID [facility] Stop: 05/10/23 21:01 Last Admin: 05/09/23 10:21 Dose: 30 mg Documented By: JOSE DAVID Sertraline HCl (Sertraline Hcl 50 Mg Tablet) 150 mg PO DAILY [facility] Last Admin: 05/09/23 10:20 Dose: 150 mg Documented By: JOSE DAVID Sodium Chloride (0.9 % Sodium Chloride Flush 3 Ml Syringe) 3 ml IVFLUSH QSHIFT [facility] Last Admin: 05/09/23 10:15 Dose: Not Given Documented By: JOSE DAVID Non-Admin Reason: Previously Administered Vitamin D (Cholecalciferol (Vitamin D3) 25 Mcg Tablet) 50 mcg PO DAILY [facility] Last Admin: 05/09/23 10:21 Dose: 50 mcg Documented By: JOSE DAVID Labs 05/06/23 10:59 05/06/23 10:59 Labs: Laboratory Results - last 24 hr 05/08/23 05/08/23 05/09/23 16:35 19:49 07:42 POC Glucose 141 H 124 H 114 05/09/23 12:06 POC Glucose 166 H Microbiology Microbiology Results: Microbiology 05/06/23 11:20 Blood Culture - Preliminary Blood - Venous No growth after 48 hours. 05/06/23 10:57 Blood Culture - Preliminary Blood - Venous No growth after 48 hours. Assessment and Plan (1) Influenza A: Status: Acute (2) Asthma with exacerbation: Status: Acute Plan 72-year-old woman admitted with acute hypoxic respiratory failure secondary to influenza Acute hypoxic respiratory failure secondary to influenza A and acute exacerbation of moderate persistent asthma. Slowly improving, persistent shortness of breath worse with exertion cxr with clear lungs Continue Tamiflu ,Scheduled DuoNebs and increase dose of IV Solu-Medrol. Wean oxygen as tolerated not on home O2. Did not qualify for home oxygen. DM2 Elevated blood sugars likely due to steroids continue ISS, metformin, ada diet Mood disorder continue home medications HTN stable BP continue lisinopril and HCTZ GERD PPI HLD Continue asa and Statin DVT prophylaxis with Lovenox Full code Patient requires continued inpatient hospitalization for treatment of respiratory failure secondary to influenza a requiring supplemental oxygen and close monitoring. Due to patient's age and underlying moderate persistent asthma she is at high risk for decompensation Quality Stroke Does the patient have a stroke diagnosis?: No VTE Prior VTE?: No VTE Risk Level:: Medical - moderate - high VTE Device Contraindication: N/A - Device Ordered VTE Drug Contraindication: N/A - Med Ordered
[2023-05-09 17:01] LABS: Glucose, Whole Blood 108 mg/dL (60-115)
[2023-05-09] MEDS: Montelukast Sodium 10 MG TABLET PO (19:45)
[2023-05-09] MEDS: Gabapentin 300 MG CAPSULE PO (19:45)
[2023-05-09] MEDS: Atorvastatin Calcium 80 MG TABLET PO (19:45)
[2023-05-09] MEDS: Aspirin Enteric Coated 81 MG TABLET.DR PO (19:46)
[2023-05-09] MEDS: Acetaminophen 325 MG TABLET 975 MG PO (19:46)
[2023-05-09] MEDS: Cyanocobalamin (Vitamin B-12) 1,000 MCG TABLET 1000 MCG PO (19:46)
[2023-05-09] MEDS: metFORMIN HCl 1,000 MG TABLET 1000 MG PO (19:46)
[2023-05-09 20:04] LABS: Glucose, Whole Blood 256 mg/dL (60-115)
[2023-05-10] VITALS (10 sets, daily range): BP systolic 107–121; BP diastolic 52–64; PULSE 83–105; RESP 18–20; TEMP 36.1–37.1; O2SAT 88–99
[2023-05-10] MEDS: methylPREDNISolone Sod Succ 40 MG/ML VIAL IVPUSH ×3 (00:09→14:28)
[2023-05-10] MEDS: Omeprazole 20 MG CAPSULE.DR PO (05:49)
[2023-05-10 07:10] LABS: Glucose, Whole Blood 143 mg/dL (60-115)
[2023-05-10] MEDS: Albuterol/Iprat 2.5/0.5MG 3 ML AMPUL.NEB INHALE ×4 (07:33→19:42)
[2023-05-10] MEDS: Loratadine 10 MG TABLET PO (09:37)
[2023-05-10] MEDS: Sertraline HCL 50 MG TABLET 150 MG PO (09:38)
[2023-05-10] MEDS: Oseltamivir Phosphate 30 MG CAPSULE PO ×2 (09:38→20:32)
[2023-05-10] MEDS: lisinopriL 20 MG TABLET PO (09:38)
[2023-05-10] MEDS: busPIRone HCl 10 MG TABLET PO ×2 (09:38→20:32)
[2023-05-10] MEDS: Cholecalciferol (Vitamin D3) 25 MCG TABLET 50 MCG PO (09:38)
[2023-05-10] MEDS: hydroCHLOROthiazide 12.5 MG TABLET PO (09:38)
[2023-05-10] MEDS: metFORMIN HCl 500 MG TABLET PO (09:38)
[2023-05-10] MEDS: 0.9 % Sodium Chloride Flush 3 ML SYRINGE IVFLUSH ×3 (09:39→20:32)
[2023-05-10 10:54] LABS: Glucose, Whole Blood 115 mg/dL (60-115)
--- NOTE | 2023-05-10 13:46 | HO.PM.IMPN ---
Subjective Subjective Date of Service: 05/10/23 Interval History: Feeling better this morning complaining of less shortness of breath and cough, denies fever chills, tolerating diet oxygenation stable 99% on 2 L, has been mostly in bed, use walker for ambulation, ambulate short distances daughter helps with housework. Review of Systems All other system reviewed and negative. Physical Exam Vital Signs: Vital Signs: Last Vital Signs Temp 97.3 F 05/10/23 10:57 Pulse 90 05/10/23 11:19 Resp 18 05/10/23 11:19 BP 118/64 05/10/23 10:57 Pulse Ox 92 05/10/23 10:57 O2 Del Method Room Air 05/10/23 10:57 O2 Flow Rate 2 05/10/23 07:12 Oxygen Flow Rate 2 05/06/23 23:08 BMI result Body Mass Index 29.5 Const: Other: General awake alert x3, in no acute distress. Neck supple no JVD. CVS regular rate rhythm, Respiratory lungs diminished breath sound with occasional wheeze,and coarse bs Gastrointestinal abdomen soft, non tender, bowel sounds audible Extremities no edema. Neuro non focal Skin no rash Psych appropriate affect Objective Data Active Medications Acetaminophen (Acetaminophen 325 Mg Tablet) 975 mg PO Q6H PRN PRN Reason: Headache Last Admin: 05/09/23 19:46 Dose: 975 mg Documented By: JEFF Albuterol/Ipratropium (Albuterol/Iprat 2.5/0.5mg 3 Ml Ampul.Neb) 3 ml INHALE RQ4H WHILE AWAKE [facility] Last Admin: 05/10/23 11:18 Dose: 3 ml Documented By: MAXWELL Aspirin (Aspirin Enteric Coated 81 Mg Tablet.) 81 mg PO BEDTIME [facility] Last Admin: 05/09/23 19:46 Dose: 81 mg Documented By: JEFF Atorvastatin Calcium (Atorvastatin Calcium 80 Mg Tablet) 80 mg PO BEDTIME [facility] Last Admin: 05/09/23 19:45 Dose: 80 mg Documented By: JEFF Buspirone HCl (Buspirone Hcl 10 Mg Tablet) 10 mg PO BID [facility] Last Admin: 05/10/23 09:38 Dose: 10 mg Documented By: BAYLEE Cyanocobalamin (Cyanocobalamin (Vitamin B-12) 1,000 Mcg Tablet) 1,000 mcg PO BEDTIME [facility] Last Admin: 05/09/23 19:46 Dose: 1,000 mcg Documented By: JEFF Dextrose (Dextrose 50 % 25 Gm/50 Ml Syringe) 25 gm IVPUSH Q15M PRN; Protocol PRN Reason: per Hypoglycemia Standing Ord. Enoxaparin Sodium (Enoxaparin Sodium 40 Mg/0.4 Ml Syringe) 40 mg SUBCUT Q24H [facility] Last Admin: 05/09/23 12:30 Dose: 40 mg Documented By: JOSE DAVID Gabapentin (Gabapentin 300 Mg Capsule) 300 mg PO TID [facility] Last Admin: 05/10/23 09:39 Dose: Not Given Documented By: BAYLEE Non-Admin Reason: Patient Refused Glucose (Glucose Gel 15 Gm Gel..Gram.) 15 gm PO Q15M PRN; Protocol PRN Reason: per Hypoglycemia Standing Ord. Guaifenesin/Dextromethorphan (Guaifenesin Dm 200/20/10 Ml 10 Ml Syrup) 10 ml PO TID [facility] Last Admin: 05/10/23 09:39 Dose: Not Given Documented By: BAYLEE Non-Admin Reason: Patient Refused Hydrochlorothiazide (Hydrochlorothiazide 12.5 Mg Tablet) 12.5 mg PO DAILY [facility] Last Admin: 05/10/23 09:38 Dose: 12.5 mg Documented By: BAYLEE Insulin Human Lispro (Insulin Lispro 100 Unit/Ml 3 Ml Vial) 0 unit SUBCUT QIDACHS [facility]; Protocol Last Admin: 05/10/23 11:35 Dose: Not Given Documented By: BAYLEE Non-Admin Reason: No Insulin Coverage Lisinopril (Lisinopril 20 Mg Tablet) 20 mg PO DAILY [facility] Last Admin: 05/10/23 09:38 Dose: 20 mg Documented By: BAYLEE Loratadine (Loratadine 10 Mg Tablet) 10 mg PO DAILY [facility] Last Admin: 05/10/23 09:37 Dose: 10 mg Documented By: BAYLEE Metformin HCl (Metformin Hcl 500 Mg Tablet) 500 mg PO DAILY [facility] Last Admin: 05/10/23 09:38 Dose: 500 mg Documented By: BAYLEE Metformin HCl (Metformin Hcl 1,000 Mg Tablet) 1,000 mg PO BEDTIME [facility] Last Admin: 05/09/23 19:46 Dose: 1,000 mg Documented By: JEFF Methylprednisolone Sodium Succinate (Methylprednisolone Sod Succ 40 Mg/Ml Vial) 40 mg IVPUSH Q8H [facility] Last Admin: 05/10/23 09:39 Dose: 40 mg Documented By: BAYLEE Montelukast Sodium (Montelukast Sodium 10 Mg Tablet) 10 mg PO BEDTIME [facility] [place] Last Admin: 05/09/23 19:45 Dose: 10 mg Documented By: JEFF Omeprazole (Omeprazole 20 Mg Capsule.) 20 mg PO DAILY@0630 [facility] Last Admin: 05/10/23 05:49 Dose: 20 mg Documented By: JEFF Oseltamivir Phosphate (Oseltamivir Phosphate 30 Mg Capsule) 30 mg PO BID [facility] Stop: 05/10/23 21:01 Last Admin: 05/10/23 09:38 Dose: 30 mg Documented By: BAYLEE Sertraline HCl (Sertraline Hcl 50 Mg Tablet) 150 mg PO DAILY [facility] Last Admin: 05/10/23 09:38 Dose: 150 mg Documented By: BAYLEE Sodium Chloride (0.9 % Sodium Chloride Flush 3 Ml Syringe) 3 ml IVFLUSH QSHIFT [facility] Last Admin: 05/10/23 09:39 Dose: 3 ml Documented By: BAYLEE Vitamin D (Cholecalciferol (Vitamin D3) 25 Mcg Tablet) 50 mcg PO DAILY [facility] Last Admin: 05/10/23 09:38 Dose: 50 mcg Documented By: BAYLEE Labs 05/06/23 10:59 05/06/23 10:59 Labs: Laboratory Results - last 24 hr 05/09/23 05/09/23 05/10/23 16:54 19:44 06:59 POC Glucose 108 256 H 143 H 05/10/23 10:50 POC Glucose 115 Assessment and Plan (1) Influenza A: Status: Acute (2) Asthma with exacerbation: Status: Acute Plan 72-year-old woman admitted with acute hypoxic respiratory failure secondary to influenza Acute hypoxic respiratory failure secondary to influenza A and acute exacerbation of moderate persistent asthma. Slowly improving, persistent shortness of breath worse with exertion cxr with clear lungs Continue Tamiflu ,Scheduled DuoNebs and cont. IV Solu-Medrol. Oxygenation stable on 2 L will discontinue O2 and monitor Patient heart rate jumped to 128 with ambulation and patient became short of breath recommend out of bed to chair and incentive spirometry ,continue above treatment Resume home dose of Trelegy DM2 Elevated blood sugars likely due to steroids continue ISS, metformin, ada diet Mood disorder continue home medications HTN stable BP continue lisinopril and HCTZ GERD PPI HLD Continue asa and Statin DVT prophylaxis with Lovenox Full code Patient requires continued inpatient hospitalization for treatment of respiratory failure secondary to influenza a requiring close respiratory and oxygen monitoring. Due to patient's age and underlying moderate persistent asthma she is at high risk for decompensation Quality Stroke Does the patient have a stroke diagnosis?: No VTE Prior VTE?: No VTE Risk Level:: Medical - moderate - high VTE Device Contraindication: N/A - Device Ordered VTE Drug Contraindication: N/A - Med Ordered
[2023-05-10] MEDS: Enoxaparin Sodium 40 MG/0.4 ML SYRINGE SUBCUT (14:28)
[2023-05-10 16:19] LABS: Glucose, Whole Blood 170 mg/dL (60-115)
[2023-05-10] MEDS: Fluticasone/Umeclidinium/Vilanterol 200/62.5/25 BLST.W.DEV 1 PUFF INHALE (16:25)
[2023-05-10] MEDS: Insulin Lispro 100 UNIT/ML 3 ML VIAL SUBCUT ×2 (17:14→20:32)
[2023-05-10 19:48] LABS: Glucose, Whole Blood 260 mg/dL (60-115)
[2023-05-10] MEDS: metFORMIN HCl 1,000 MG TABLET 1000 MG PO (20:31)
[2023-05-10] MEDS: Montelukast Sodium 10 MG TABLET PO (20:31)
[2023-05-10] MEDS: Atorvastatin Calcium 80 MG TABLET PO (20:31)
[2023-05-10] MEDS: Aspirin Enteric Coated 81 MG TABLET.DR PO (20:31)
[2023-05-10] MEDS: Cyanocobalamin (Vitamin B-12) 1,000 MCG TABLET 1000 MCG PO (20:32)
[2023-05-11] VITALS (7 sets, daily range): BP systolic 94–116; BP diastolic 48–62; PULSE 88–119; RESP 18–22; TEMP 36.4–36.8; O2SAT 92–97
[2023-05-11] MEDS: methylPREDNISolone Sod Succ 40 MG/ML VIAL IVPUSH ×4 (01:34→22:24)
[2023-05-11] MEDS: Omeprazole 20 MG CAPSULE.DR PO (05:41)
[2023-05-11] MEDS: Albuterol/Iprat 2.5/0.5MG 3 ML AMPUL.NEB INHALE ×2 (07:50→11:37)
[2023-05-11] MEDS: Fluticasone/Umeclidinium/Vilanterol 200/62.5/25 BLST.W.DEV 1 PUFF INHALE (07:50)
[2023-05-11 07:52] LABS: Glucose, Whole Blood 139 mg/dL (60-115)
[2023-05-11] MEDS: Sertraline HCL 50 MG TABLET 150 MG PO (08:14)
[2023-05-11] MEDS: Loratadine 10 MG TABLET PO (08:14)
[2023-05-11] MEDS: hydroCHLOROthiazide 12.5 MG TABLET PO (08:15)
[2023-05-11] MEDS: busPIRone HCl 10 MG TABLET PO ×2 (08:15→20:03)
[2023-05-11] MEDS: metFORMIN HCl 500 MG TABLET PO (08:15)
[2023-05-11] MEDS: lisinopriL 20 MG TABLET PO (08:15)
[2023-05-11] MEDS: Cholecalciferol (Vitamin D3) 25 MCG TABLET 50 MCG PO (08:15)
[2023-05-11] MEDS: 0.9 % Sodium Chloride Flush 3 ML SYRINGE IVFLUSH ×2 (08:16→15:54)
[2023-05-11] MEDS: Doxycycline Monohydrate 100 MG CAPSULE PO ×2 (11:01→21:47)
[2023-05-11] MEDS: Insulin Lispro 100 UNIT/ML 3 ML VIAL SUBCUT ×2 (11:01→21:48)
[2023-05-11 11:07] LABS: Glucose, Whole Blood 195 mg/dL (60-115)
--- NOTE | 2023-05-11 12:41 | HO.PM.IMPN ---
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 Review of Systems All other system reviewed and negative Physical Exam Vital Signs: Vital Signs: Last Vital Signs Temp 97.7 F 05/11/23 10:52 Pulse 119 H 05/11/23 11:37 Resp 22 H 05/11/23 11:37 BP 106/57 L 05/11/23 10:52 Pulse Ox 96 05/11/23 10:52 O2 Del Method Nasal Cannula 05/11/23 10:52 O2 Flow Rate 1 05/11/23 10:52 Oxygen Flow Rate 2 05/06/23 23:08 BMI result Body Mass Index 29.5 Const: Other: General awake alert x3, in no acute distress. Neck supple no JVD. CVS regular rate rhythm, Respiratory lungs diminished breath sound with occasional wheeze,and coarse bs Gastrointestinal abdomen soft, non tender, bowel sounds audible Extremities no edema. Neuro non focal Skin no rash Psych appropriate affect Objective Data Active Medications Acetaminophen (Acetaminophen 325 Mg Tablet) 975 mg PO Q6H PRN PRN Reason: Headache Last Admin: 05/09/23 19:46 Dose: 975 mg Documented By: JEFF Albuterol/Ipratropium (Albuterol/Iprat 2.5/0.5mg 3 Ml Ampul.Neb) 3 ml INHALE RQ4H WHILE AWAKE [facility] Last Admin: 05/11/23 11:37 Dose: 3 ml Documented By: KIMBERLY Aspirin (Aspirin Enteric Coated 81 Mg Tablet.) 81 mg PO BEDTIME [facility] Last Admin: 05/10/23 20:31 Dose: 81 mg Documented By: JEFF Atorvastatin Calcium (Atorvastatin Calcium 80 Mg Tablet) 80 mg PO BEDTIME [facility] Last Admin: 05/10/23 20:31 Dose: 80 mg Documented By: JEFF Buspirone HCl (Buspirone Hcl 10 Mg Tablet) 10 mg PO BID [facility] Last Admin: 05/11/23 08:15 Dose: 10 mg Documented By: MADYSON Cyanocobalamin (Cyanocobalamin (Vitamin B-12) 1,000 Mcg Tablet) 1,000 mcg PO BEDTIME [facility] Last Admin: 05/10/23 20:32 Dose: 1,000 mcg Documented By: JEFF Dextrose (Dextrose 50 % 25 Gm/50 Ml Syringe) 25 gm IVPUSH Q15M PRN; Protocol PRN Reason: per Hypoglycemia Standing Ord. Doxycycline Monohydrate (Doxycycline Monohydrate 100 Mg Capsule) 100 mg PO Q12H [facility] Last Admin: 05/11/23 11:01 Dose: 100 mg Documented By: BAYLEE Enoxaparin Sodium (Enoxaparin Sodium 40 Mg/0.4 Ml Syringe) 40 mg SUBCUT Q24H [facility] Last Admin: 05/10/23 14:28 Dose: 40 mg Documented By: IRAM Fluticasone/Umeclidinium/Vilanterol (Fluticasone/Umeclidinium/Vilanterol 200/62.5/25 Blst.W.Dev) 1 puff INHALE RDAILY [facility] Last Admin: 05/11/23 07:50 Dose: 1 puff Documented By: KIMBERLY Gabapentin (Gabapentin 300 Mg Capsule) 300 mg PO TID [facility] Last Admin: 05/11/23 08:16 Dose: Not Given Documented By: MADYSON Non-Admin Reason: Patient Refused Glucose (Glucose Gel 15 Gm Gel..Gram.) 15 gm PO Q15M PRN; Protocol PRN Reason: per Hypoglycemia Standing Ord. Guaifenesin/Dextromethorphan (Guaifenesin Dm 200/20/10 Ml 10 Ml Syrup) 10 ml PO TID [facility] Last Admin: 05/11/23 08:16 Dose: Not Given Documented By: MADYSON Non-Admin Reason: Patient Refused Hydrochlorothiazide (Hydrochlorothiazide 12.5 Mg Tablet) 12.5 mg PO DAILY [facility] Last Admin: 05/11/23 08:15 Dose: 12.5 mg Documented By: MADYSON Insulin Human Lispro (Insulin Lispro 100 Unit/Ml 3 Ml Vial) 0 unit SUBCUT QIDACHS [facility]; Protocol Last Admin: 05/11/23 11:01 Dose: 2 unit Documented By: BAYLEE Lisinopril (Lisinopril 20 Mg Tablet) 20 mg PO DAILY [facility] Last Admin: 05/11/23 08:15 Dose: 20 mg Documented By: MADYSON Loratadine (Loratadine 10 Mg Tablet) 10 mg PO DAILY [facility] Last Admin: 05/11/23 08:14 Dose: 10 mg Documented By: MADYSON Metformin HCl (Metformin Hcl 500 Mg Tablet) 500 mg PO DAILY [facility] Last Admin: 05/11/23 08:15 Dose: 500 mg Documented By: MADYSON Metformin HCl (Metformin Hcl 1,000 Mg Tablet) 1,000 mg PO BEDTIME [facility] Last Admin: 05/10/23 20:31 Dose: 1,000 mg Documented By: JEFF Methylprednisolone Sodium Succinate (Methylprednisolone Sod Succ 40 Mg/Ml Vial) 40 mg IVPUSH Q8H [facility] Last Admin: 05/11/23 08:14 Dose: 40 mg Documented By: MADYSON Montelukast Sodium (Montelukast Sodium 10 Mg Tablet) 10 mg PO BEDTIME [facility] Last Admin: 05/10/23 20:31 Dose: 10 mg Documented By: JEFF Omeprazole (Omeprazole 20 Mg Capsule.Dr) 20 mg PO DAILY@0630 [facility] Last Admin: 05/11/23 05:41 Dose: 20 mg Documented By: JEFF Sertraline HCl (Sertraline Hcl 50 Mg Tablet) 150 mg PO DAILY [facility] Last Admin: 05/11/23 08:14 Dose: 150 mg Documented By: MADYSON Sodium Chloride (0.9 % Sodium Chloride Flush 3 Ml Syringe) [facility] Admin: 05/11/23 08:16 Dose: 3 ml Documented By: MADYSON Vitamin D (Cholecalciferol (Vitamin D3) 25 Mcg Tablet) 50 mcg PO DAILY [facility] Last Admin: 05/11/23 08:15 Dose: 50 mcg Documented By: MADYSON Labs 05/06/23 10:59 05/06/23 10:59 Labs: Laboratory Results - last 24 hr 05/10/23 05/10/23 05/11/23 16:14 19:41 07:37 POC Glucose 170 H 260 H 139 H 05/11/23 10:53 POC Glucose 195 H Assessment and Plan (1) Influenza A: Status: Acute (2) Asthma with exacerbation: Status: Acute Plan 72-year-old woman admitted with acute hypoxic respiratory failure secondary to influenza Acute hypoxic respiratory failure secondary to influenza A and acute exacerbation of moderate persistent asthma and COPD (overlap syndrome.) Also with history of obstructive sleep apnea. Slowly improving, persistent shortness of breath worse with exertion and tachycardia cxr with clear lungs on admission Continue Tamiflu ,Scheduled DuoNebs and cont. IV Solu-Medrol. Continue Trelegy, added doxycycline. Oxygenation stable on 2 L /O2 drops with ambulation Patient heart rate jumped to 138 with ambulation and patient became short of breath repeat chest x-ray showed no evidence of pneumonia, chronically thickened bronchial smith Will obtain Pulmonary consultation by primary senior applications engineer Dr. Morales to optimize medication Home O2 eval done earlier patient did not qualify but will repeat home O2 eval prior to discharge. DM2 Elevated blood sugars likely due to steroids continue ISS, metformin, ada diet Mood disorder continue home medications HTN stable BP , few soft BP readings will DC hydrochlorothiazide continue lisinopril GERD PPI HLD Continue asa and Statin DVT prophylaxis with Lovenox Full code Patient requires continued inpatient hospitalization for treatment of respiratory failure secondary to influenza a requiring close respiratory and oxygen monitoring. Due to patient's age and underlying moderate persistent asthma she is at high risk for decompensation Quality Stroke Does the patient have a stroke diagnosis?: No VTE Prior VTE?: No VTE Risk Level:: Medical - moderate - high VTE Device Contraindication: N/A - Device Ordered VTE Drug Contraindication: N/A - Med Ordered
[2023-05-11] MEDS: Enoxaparin Sodium 40 MG/0.4 ML SYRINGE SUBCUT (13:42)
[2023-05-11 16:03] LABS: Glucose, Whole Blood 144 mg/dL (60-115)
[2023-05-11] MEDS: Montelukast Sodium 10 MG TABLET PO (20:03)
[2023-05-11] MEDS: metFORMIN HCl 1,000 MG TABLET 1000 MG PO (20:03)
[2023-05-11] MEDS: Atorvastatin Calcium 80 MG TABLET PO (20:03)
[2023-05-11] MEDS: Cyanocobalamin (Vitamin B-12) 1,000 MCG TABLET 1000 MCG PO (20:03)
[2023-05-11] MEDS: Aspirin Enteric Coated 81 MG TABLET.DR PO (20:03)
[2023-05-11 20:19] LABS: Glucose, Whole Blood 288 mg/dL (60-115)
[2023-05-12] VITALS: BP 111/59; PULSE 87; RESP 20; TEMP 36.7; O2SAT 96
[2023-05-12] MEDS: 0.9 % Sodium Chloride Flush 3 ML SYRINGE IVFLUSH ×2 (00:24→09:11)
[2023-05-12 03:47] VITALS: BP 121/57; PULSE 90; RESP 20; TEMP 36.4; O2SAT 96
[2023-05-12] MEDS: Omeprazole 20 MG CAPSULE.DR PO (05:58)
[2023-05-12 08:00] VITALS: BP 99/61; PULSE 84; RESP 20; TEMP 37.3; O2SAT 95
[2023-05-12 08:37] LABS: Glucose, Whole Blood 107 mg/dL (60-115)
[2023-05-12] MEDS: busPIRone HCl 10 MG TABLET PO (09:11)
[2023-05-12] MEDS: Loratadine 10 MG TABLET PO (09:11)
[2023-05-12] MEDS: Sertraline HCL 50 MG TABLET 150 MG PO (09:11)
[2023-05-12] MEDS: lisinopriL 20 MG TABLET PO (09:11)
[2023-05-12] MEDS: Cholecalciferol (Vitamin D3) 25 MCG TABLET 50 MCG PO (09:11)
[2023-05-12] MEDS: metFORMIN HCl 500 MG TABLET PO (09:11)
[2023-05-12] MEDS: methylPREDNISolone Sod Succ 40 MG/ML VIAL IVPUSH (09:12)
[2023-05-12] MEDS: Doxycycline Monohydrate 100 MG CAPSULE PO (09:12)
--- NOTE | 2023-05-12 11:01 | PM.CNPUL ---
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 Patient has been treated with empiric antibiotics, systemic glucocorticoids, nebulized bronchodilators with improvement in her symptoms. However on pulse oximetry patient intermittently gets hypoxic, though it appears to be related to poor pickup from the O2 sensor. She denies any pulmonary related concerns or complaints. Review of Systems Constitutional: Constitutional: Denies daytime sleepiness, Denies excessive sweating, Denies fatigue, Denies fever(s), Denies lethargy, Denies malaise, Denies night sweats, Denies snoring and Denies weight loss Eyes: Eyes: Denies blurry vision and Denies itchy eyes ENT: Denies nasal congestion, Denies post nasal drip, Denies sinus pain, Denies sinus pressure and Denies other ( Thrush) Cardiovascular: Cardiovascular: Denies chest pain, Denies pedal edema, Denies dyspnea, Denies orthopnea and Denies paroxysmal nocturnal dyspnea Respiratory: Respiratory: Denies cough, Denies hemoptysis, Denies excessive phlegm production, Denies dyspnea, Denies snoring and Denies wheezing Gastrointestinal: Gastrointestinal: Denies abdominal pain and Denies heartburn Musculoskeletal: Musculoskeletal: Denies myalgias, Denies arthralgias and Denies joint swelling Integumentary/Breasts: Skin/Breast: Denies rash Neurologic: Denies memory loss and Denies seizure-like activity Psychiatric: Psychiatric: Denies abnormal sleep pattern, Denies anxiety and Denies memory loss Endocrine: Endocrine: Denies excessive sweating, Denies fatigue and Denies heat intolerance Hematologic/Lymphatic: Hematologic/Lymphatic: Denies easy bruising Allergic/Immunologic: Allergic/Immunologic: Denies itchy eyes, Denies seasonal rhinorrhea and Denies wheezing PMFSH Past Medical History Medical History (Updated 05/06/23 @ 16:28 by Zakia Morales NP) Asthma-COPD overlap syndrome JIMBO (obstructive sleep apnea) Bilateral anterior knee pain Hypertension Diabetes Bladder cancer Social History Social History (Updated 04/25/23 @ 12:55 by SHAKILA Hudson) Household Members: None Housing: Apartment Do you presently have visiting nurse or other home services: Yes ([employer]) Patient Tobacco Use Status: Former Tobacco user Tobacco use type: Cigarette Years Smoked: 17 years old, quit 1 year ago service: No Meds Allergies Allergy/AdvReac Type Severity Reaction Status Date / Time No Known Allergies Allergy Verified 04/25/23 12:54 [No Known Allergies*] Active Medications: Current Medications Acetaminophen (Acetaminophen 325 Mg Tablet) 975 mg PO Q6H PRN PRN Reason: Headache Last Admin: 05/09/23 19:46 Dose: 975 mg Albuterol/Ipratropium (Albuterol/Iprat 2.5/0.5mg 3 Ml Ampul.Neb) 3 ml INHALE RQ4H WHILE AWAKE [facility] Last Admin: 05/12/23 07:30 Dose: Not Given Aspirin (Aspirin Enteric Coated 81 Mg Tablet.Dr) 81 mg PO BEDTIME [facility] Last Admin: 05/11/23 20:03 Dose: 81 mg Atorvastatin Calcium (Atorvastatin Calcium 80 Mg Tablet) 80 mg PO BEDTIME [facility] Last Admin: 05/11/23 20:03 Dose: 80 mg Buspirone HCl (Buspirone Hcl 10 Mg Tablet) 10 mg PO BID [facility] Last Admin: 05/12/23 09:11 Dose: 10 mg Cyanocobalamin (Cyanocobalamin (Vitamin B-12) 1,000 Mcg Tablet) 1,000 mcg PO BEDTIME [facility]UE Last Admin: 05/11/23 20:03 Dose: 1,000 mcg Dextrose (Dextrose 50 % 25 Gm/50 Ml Syringe) 25 gm IVPUSH Q15M PRN; Protocol PRN Reason: per Hypoglycemia Standing Ord. Doxycycline Monohydrate (Doxycycline Monohydrate 100 Mg Capsule) 100 mg PO Q12H [facility] Last Admin: 05/12/23 09:12 Dose: 100 mg Enoxaparin Sodium (Enoxaparin Sodium 40 Mg/0.4 Ml Syringe) 40 mg SUBCUT Q24H [facility] Last Admin: 05/11/23 13:42 Dose: 40 mg Fluticasone/Umeclidinium/Vilanterol (Fluticasone/Umeclidinium/Vilanterol 200/62.5/25 Blst.W.Dev) 1 puff INHALE RDAILY [facility] Last Admin: 05/12/23 07:30 Dose: Not Given Gabapentin (Gabapentin 300 Mg Capsule) 300 mg PO TID [facility] Last Admin: 05/12/23 08:45 Dose: Not Given Glucose (Glucose Gel 15 Gm Gel..Gram.) 15 gm PO Q15M PRN; Protocol PRN Reason: per Hypoglycemia Standing Ord. Guaifenesin/Dextromethorphan (Guaifenesin Dm 200/20/10 Ml 10 Ml Syrup) 10 ml PO TID [facility] Last Admin: 05/12/23 08:45 Dose: Not Given Insulin Human Lispro (Insulin Lispro 100 Unit/Ml 3 Ml Vial) 0 unit SUBCUT QIDACHS [facility]; Protocol Last Admin: 05/12/23 08:43 Dose: Not Given Lisinopril (Lisinopril 20 Mg Tablet) 20 mg PO DAILY [facility] Last Admin: 05/12/23 09:11 Dose: 20 mg Loratadine (Loratadine 10 Mg Tablet) 10 mg PO DAILY [facility] Last Admin: 05/12/23 09:11 Dose: 10 mg Metformin HCl (Metformin Hcl 500 Mg Tablet) 500 mg PO DAILY [facility] Last Admin: 05/12/23 09:11 Dose: 500 mg Metformin HCl (Metformin Hcl 1,000 Mg Tablet) 1,000 mg PO BEDTIME [facility] Last Admin: 05/11/23 20:03 Dose: 1,000 mg Methylprednisolone Sodium Succinate (Methylprednisolone Sod Succ 40 Mg/Ml Vial) 40 mg IVPUSH Q8H [facility] Last Admin: 05/12/23 09:12 Dose: 40 mg Montelukast Sodium (Montelukast Sodium 10 Mg Tablet) 10 mg PO BEDTIME [facility] Last Admin: 05/11/23 20:03 Dose: 10 mg Omeprazole (Omeprazole 20 Mg Capsule.Dr) 20 mg PO DAILY@0630 [facility] Last Admin: 05/12/23 05:58 Dose: 20 mg Sertraline HCl (Sertraline Hcl 50 Mg Tablet) 150 mg PO DAILY [facility] Last Admin: 05/12/23 09:11 Dose: 150 mg Sodium Chloride (0.9 % Sodium Chloride Flush 3 Ml Syringe) 3 ml IVFLUSH QSHIFT [facility] Last Admin: 05/12/23 09:11 Dose: 3 ml Vitamin D (Cholecalciferol (Vitamin D3) 25 Mcg Tablet) 50 mcg PO DAILY [facility] Last Admin: 05/12/23 09:11 Dose: 50 mcg Home Medications Medication Instructions Recorded Confirmed Last Taken Type montelukast 10 mg tablet 10 mg PO BEDTIME 11/25/19 05/06/23 05/05/23 History (Singulair) aspirin 81 mg tablet,delayed 81 mg PO BEDTIME 07/11/20 05/06/23 05/05/23 History release cetirizine 10 mg tablet 10 mg PO DAILY 07/11/20 05/06/23 05/06/23 History cholecalciferol (vitamin D3) 50 50 mcg PO DAILY 07/11/20 05/06/23 05/06/23 History mcg (2,000 unit) capsule fluticasone propionate 50 1 spray intranasal DAILY PRN 07/11/20 05/06/23 Unknown History mcg/actuation nasal Allergy Symptoms spray,suspension gabapentin 300 mg capsule 300 mg PO TID 07/11/20 05/06/23 05/06/23 History glipizide 10 mg tablet, extended 10 mg PO DAILY 07/11/20 05/06/23 05/06/23 History release 24 hr linagliptin 5 mg tablet 5 mg PO DAILY 07/11/20 05/06/23 05/06/23 History metformin 500 mg tablet 1,000 mg PO BEDTIME 07/11/20 05/06/23 05/06/23 History pantoprazole 40 mg tablet,delayed 40 mg PO DAILY 07/11/20 05/06/23 05/06/23 History release sertraline 100 mg tablet 150 mg PO DAILY 07/11/20 05/06/23 05/06/23 History lisinopril 20 1 tab PO DAILY 10/12/21 05/06/23 05/06/23 History mg-hydrochlorothiazide 12.5 mg tablet rosuvastatin 40 mg tablet 40 mg PO BEDTIME 10/12/21 05/06/23 05/06/23 History buspirone 10 mg tablet 10 mg PO BID 02/25/22 05/06/23 05/06/23 History albuterol sulfate 2.5 mg/3 mL 2.5 mg inhalation QID shortness of 05/06/23 05/06/23 05/06/23 History (0.083 %) solution for nebulization breath or wheezing cyanocobalamin (vitamin B-12) 1,000 mcg PO QPM 05/06/23 05/06/23 05/05/23 History 1,000 mcg tablet fluticasone fur. 200 mcg-umeclid 1 inh inhalation DAILY 05/06/23 05/06/23 05/06/23 History 62.5 mcg-vilant 25 mcg inhalat.powder (Trelegy Ellipta) ivermectin 3 mg tablet 15 mg PO Q14D 05/06/23 05/06/23 04/24/23 History metformin 500 mg tablet 500 mg PO DAILY 05/06/23 05/06/23 05/06/23 History prednisone 10 mg tablet See Rx Instructions PO DAILY 05/06/23 05/06/23 05/06/23 History Physical Exam Vital Signs: Vital Signs: Last Vital Signs Temp 99.1 F 05/12/23 08:00 Pulse 84 05/12/23 08:00 Resp 20 05/12/23 08:00 BP 99/61 05/12/23 08:00 Pulse Ox 95 05/12/23 08:00 O2 Del Method Nasal Cannula 05/12/23 08:00 O2 Flow Rate 1 05/12/23 08:00 Oxygen Flow Rate 2 05/06/23 23:08 BMI result Body Mass Index 29.5 Const: General: no acute distress and alert Nutritional Appearance: not obese Orientation/consciousness: Other orientation findings ( oriented) HEENT: Head: Yes atraumatic Eyes: General: appearance normal, both eyes and all related structures Sclerae: sclerae normal EOM: EOMs intact bilaterally Neck: Neck: Yes supple Lymphatic: no lymphadenopathy noted Resp: Effort & Inspection: normal respiratory effort and no use of accessory muscles Auscultation: clear to auscultation bilaterally Cardio: Rate: regular rate Rhythm: regular rhythm Heart sounds: no gallops, no murmurs and no rubs Skin: General skin exam: other ( warm) Extrem: General: No clubbing, No cyanosis and No edema Results Laboratory Findings 05/06/23 10:59 05/06/23 10:59 Abnormal lab findings: Abnormal Labs 05/06/23 05/06/23 05/06/23 10:59 18:18 20:16 WBC 3.9 L RBC 4.01 L Lymph % (Auto) 42.5 H Absolute Neuts (auto) 1.9 L Carbon Dioxide 32 H BUN 19 H POC Glucose 356 H* 309 H Random Glucose 117 H AST 40 H Influenza Type A (PCR) POSITIVE A 05/07/23 05/07/23 05/08/23 10:57 20:08 07:22 WBC RBC Lymph % (Auto) Absolute Neuts (auto) Carbon Dioxide BUN POC Glucose 213 H 173 H 128 H Random Glucose AST Influenza Type A (PCR) 05/08/23 05/08/23 05/08/23 11:36 16:35 19:49 WBC RBC Lymph % (Auto) Absolute Neuts (auto) Carbon Dioxide BUN POC Glucose 241 H 141 H 124 H Random Glucose AST Influenza Type A (PCR) 05/09/23 05/09/23 05/10/23 12:06 19:44 06:59 WBC RBC Lymph % (Auto) Absolute Neuts (auto) Carbon Dioxide BUN POC Glucose 166 H 256 H 143 H Random Glucose AST Influenza Type A (PCR) 05/10/23 05/10/23 05/11/23 16:14 19:41 07:37 WBC RBC Lymph % (Auto) Absolute Neuts (auto) Carbon Dioxide BUN POC Glucose 170 H 260 H 139 H Random Glucose AST Influenza Type A (PCR) 05/11/23 05/11/23 05/11/23 10:53 15:57 20:15 WBC RBC Lymph % (Auto) Absolute Neuts (auto) Carbon Dioxide BUN POC Glucose 195 H 144 H 288 H Random Glucose AST Influenza Type A (PCR) Microbiology: Microbiology 05/06/23 11:20 Blood - Venous Blood Culture - Final No growth after 5 days. 05/06/23 10:57 Blood - Venous Blood Culture - Final No growth after 5 days. Assessment and Plan (1) Asthma-COPD overlap syndrome: Status: Acute (2) Influenza A: Status: Acute Plan Impression: 72-year-old lady lying at least moderate asthma/COPD overlap syndrome admitted with acute hypoxic respiratory failure secondary to influenza, now essentially recovered to baseline. On my evaluation supplemental oxygen discontinued with patient O2 saturation 92-94%. Recommendations: At this time patient appears to be at baseline and continues on home regimen of bronchodilators. From pulmonary perspective with no barriers to discharge. Procedures Date of Service Date of Service: 05/12/23
[2023-05-12 11:39] VITALS: BP 129/64; PULSE 106; RESP 20; TEMP 37; O2SAT 92
[2023-05-12 11:41] LABS: Glucose, Whole Blood 151 mg/dL (60-115)
--- NOTE | 2023-05-12 12:43 | P.DS_ITS ---
DS: Providers Provider Date of Service: 05/12/23 Date of admission: 05/06/23 13:24 Date of discharge: 05/12/23 Primary care physician: Flower Miranda MD Consults: 05/12/23 08:34 Consult to Pulmonology Routine Consulting Provider: [facility] [place] Pulmonology Services Reason for consultation: Hypoxia Has provider been notified: No DS: Diagnosis Discharge Diagnosis (1) Asthma-COPD overlap syndrome: Status: Acute (2) Influenza A: Status: Acute DS: Summary Hospital Course Hospital Course: 72-year-old woman with history of asthma, hypertension, hyperlipidemia, diabetes presented to the ER with complaints of worsening shortness of breath and wheezing over the last 2 weeks especially with exertion. She denied recent illness, sick contacts. She lives alone. She denied chest pain, nausea, vomiting, diarrhea, recent travel. Upon arrival to the ER she was 87% on room air and placed on 2 L nasal cannula. She had expiratory wheezing with history of asthma. No fever leukocytosis in the ER. Influenza A positive. She was given albuterol, Tamiflu, Solu-Medrol and IV magnesium. She will be admitted for further management and treatment of acute hypoxic respiratory failure secondary to influenza A. Hospital course Admitted to telemetry. Completed a course of Tamiflu along with pulse dose steroids. Patient continued to improve over hospitalization. On the day of discharge, there was a question about O2 at home. She was in consultation with pulmonology who felt she was at baseline and did not need home O2. Ambulatory sats confirm this. At this point in time she will be discharged to complete oral prednisone taper and follow up with PCP next available Time Attestation Discharge Coordination Time (in mins): 35 Quality: Safe Use of Opioids Does Pt have an Active Cancer Diagnosis on the Problem List?: No Quality: Stroke Does the patient have a stroke diagnosis?: No Physical Exam Vital Signs: Vital Signs: Last Vital Signs Temp 98.6 F 05/12/23 11:39 Pulse 106 H 05/12/23 11:39 Resp 20 05/12/23 11:39 BP 129/64 05/12/23 11:39 Pulse Ox 92 05/12/23 11:39 O2 Del Method Nasal Cannula 05/12/23 11:39 O2 Flow Rate 2 05/12/23 11:39 Oxygen Flow Rate 2 03/19/24 23:08 BMI result Body Mass Index 29.5 Const: Other: Awake alert no acute distress Resp: Other: Clear to auscultation bilaterally no rales rhonchi or wheezes Cardio: Other: No S4; positive S1-S2; no S3 murmurs rubs or gallops GI: Other: Soft nontender nondistended normoactive bowel sounds Extrem: Other: No edema bilaterally DS: Data Data Completed and Pending Labs on day of discharge: Laboratory Results - last 24 hr 05/11/23 05/11/23 05/12/23 15:57 20:15 07:26 POC Glucose 144 H 288 H 107 05/12/23 11:23 POC Glucose 151 H Discharge Plan Discharge Anticipated Discharge Date/Time: 05/12/23 12:39 Patient Disposition: Home Health Service Discharge Diagnosis: Acute asthma exacerbation secondary to influenza a Referrals: Flower High MD [Primary Care Provider] - 1 Week Discharge Medications: New prednisone 10 mg tablet See Rx Instructions .Route .COMPLEX Qty: 45 0RF Rx Instructions: 10 mg orally; 5 tabs p.o. daily x3 days; 4 tabs p.o. daily x3 days; 3 tabs daily x3 days; 2 tabs daily x3 days; 1 tab daily x3 days Continued Dupixent Syringe 300 mg/2 mL syringe 300 mg subcut Q2W Qty: 4 11RF oxycodone 5 mg tablet 5 mg PO Q8H PRN (Reason: pain) Qty: 10 0RF Rx Instructions: Partial Fill upon patient request. metformin 500 mg tablet 500 mg PO DAILY cyanocobalamin (vitamin B-12) 1,000 mcg tablet 1,000 mcg PO QPM Trelegy Ellipta 200-62.5-25 mcg Blister With Device 1 inh INHALATION DAILY prednisone 10 mg tablet See Rx Instructions PO DAILY Taper: Prednisone 20 daily for 2 Days and 0 Hour 10 daily for 5 Days and 0 Hour Rx Instructions: Take 2 tabs daily x 5 days, then 1 tab daily x 5 days albuterol sulfate 2.5 mg /3 mL (0.083 %) solution for nebulization 2.5 mg inhalation QID montelukast [Singulair] 10 mg tablet 10 mg PO BEDTIME linagliptin 5 mg tablet 5 mg PO DAILY cholecalciferol (vitamin D3) 50 mcg (2,000 unit) capsule 50 mcg PO DAILY fluticasone propionate 50 mcg/actuation spray,suspension 1 spray intranasal DAILY PRN (Reason: Allergy Symptoms) pantoprazole 40 mg tablet,delayed release (DR/EC) 40 mg PO DAILY aspirin 81 mg tablet,delayed release (DR/EC) 81 mg PO BEDTIME glipizide 10 mg tablet extended release 24hr 10 mg PO DAILY cetirizine 10 mg tablet 10 mg PO DAILY metformin 500 mg tablet 1,000 mg PO BEDTIME gabapentin 300 mg capsule 300 mg PO TID sertraline 100 mg tablet 150 mg PO DAILY buspirone 10 mg tablet 10 mg PO BID rosuvastatin 40 mg tablet 40 mg PO BEDTIME lisinopril-hydrochlorothiazide 20-12.5 mg tablet 1 tab PO DAILY albuterol sulfate 90 mcg/actuation HFA aerosol inhaler 2 puff PO Q6H PRN (Reason: shortness of breath or wheezing) 30 Days Qty: 8.5 11RF Discontinued ivermectin 3 mg tablet 15 mg PO Q14D Rx Instructions: ONLY ONE MORE DOSE doxycycline hyclate 100 mg capsule 100 mg PO BID 10 Days Qty: 20 0RF Rx Instructions: FINISH 05/08/23 Discharge Orders: Discharge Order (Routine); Ordered 05/12/23 Ordered By: Jose Luis Allen Diet: Advance to usual diet Activity on Discharge: As tolerated Stand Alone Forms: Patient Portal Discharge page Care Plan Goals: Resume all medicines as taken before the hospital Health Concerns: Complete course of prednisone taper as outlined Plan of Treatment: Follow-up with your PCP next available Assessment: See discharge summary
--- NOTE | 2023-05-12 12:46 | P.F2F_ITS ---
Service Date Service Date: 05/12/23 Encounter Date of encounter: 05/12/23 Encounter: Acute hospitalization Reasons for Services Signs and symptoms assessed: Respiratory status and disease management Reason for detention: medication management, medication treatment and teach disease management Homebound: Leaving the home is medically contraindicated at this time without the asist of a device and/or another person due th the listed conditions above and below. Reason homebound: unsteady gait / fall risk and unable to drive Certification: Based on the above findings, I certify that this patient is confined to the home and needs intermittent detention care, physical therapy and/or speech therapy, or continues to need occupational therapy. The patient is under my care, and I have initiated the establishment of the plan of care. The patient will be followed by a physician who will periodically review the plan of care. Time Spent With Patient Time: Total time managing care of this patient today ____ minutes.
--- NOTE | 2023-05-12 12:54 | MHC.CM.PN ---
Patient has been medically cleared for dc to home today with services. A referral was made to [facility], who has been made aware of today's dc. CM met with Patient at bedside and addressed IMM with her (original was given to Patient and a copy has been placed on the chart). Patient's Daughter will transport to home.
== END 2023-05-12 14:10 | disposition home health service (06) | DRG 193 ==
LOC: HO.ED 13:22 → HO.EDOVER 13:31 → HO.IMC 16:59
PROVIDERS: Hospitalist; Physician Assistant; Admitting Provider Nurse Practitioner Acute Care; Emergency Provider Emergency Medicine; PCP Student in an Organized Health Care Education/Training Program; Visit Provider Hospitalist
DX: J10.1 Influenza due to other identified influenza virus with other respiratory manifestations (principal); J96.01 Acute respiratory failure with hypoxia; J45.41 Moderate persistent asthma with (acute) exacerbation; E78.5 Hyperlipidemia, unspecified; I10 Essential (primary) hypertension; K21.9 Gastro-esophageal reflux disease without esophagitis; E11.9 Type 2 diabetes mellitus without complications; G47.33 Obstructive sleep apnea (adult) (pediatric); Z20.822 Contact with and (suspected) exposure to COVID-19; Z87.891 Personal history of nicotine dependence; Z79.51 Long term (current) use of inhaled steroids; Z79.82 Long term (current) use of aspirin; Z79.84 Long term (current) use of oral hypoglycemic drugs; Z79.899 Other long term (current) drug therapy
CPT/HCPCS: 0241U; 36415; 71045; 80053; 82947; 83605; 84484; 85025; 87040; 93005; 94640; 99285; J1650; J2920; J2930; J3475

== ENCOUNTER → 2023-05-06 10:39 | Outpatient (BNV) | payer OTHER, SELFPAY | PROVIDERS: Admitting Provider Nurse Practitioner Acute Care; Emergency Provider Emergency Medicine; PCP Student in an Organized Health Care Education/Training Program; Visit Provider Internal Medicine | DX: I45.81 Long QT syndrome (principal) | CPT/HCPCS: 93010 ==

== ENCOUNTER → 2023-05-06 13:24 | Outpatient (BNV) | payer OTHER, SELFPAY | PROVIDERS: Admitting Provider Nurse Practitioner Acute Care; Emergency Provider Emergency Medicine; PCP Student in an Organized Health Care Education/Training Program; Visit Provider Internal Medicine Pulmonary Disease | DX: J44.9 Chronic obstructive pulmonary disease, unspecified (principal); J10.1 Influenza due to other identified influenza virus with other respiratory manifestations | CPT/HCPCS: 99221 ==

== ENCOUNTER → 2023-05-06 13:24 | Outpatient (BNV) | payer OTHER, SELFPAY | PROVIDERS: Admitting Provider Nurse Practitioner Acute Care; Emergency Provider Emergency Medicine; PCP Student in an Organized Health Care Education/Training Program; Visit Provider Nurse Practitioner Acute Care | DX: J96.01 Acute respiratory failure with hypoxia (principal); J10.1 Influenza due to other identified influenza virus with other respiratory manifestations; J45.41 Moderate persistent asthma with (acute) exacerbation | CPT/HCPCS: 99223; 99233; 99239; G0180 ==

== ENCOUNTER 2023-05-14 10:22 | Outpatient (AMB) | payer OTHER, SELFPAY ==
--- NOTE | 2023-05-14 10:25 | MHC.OFFVIS ---
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 Intake Note: Kate 50 yr old right hand dominant female presents today with her daughter for a new problem visit for her Carpal tunnel syndrome B/L hand, states her left is worse. States symptoms present for more than 1 year and has worsen. Denies wearing brace or recent injury. Symptoms are worse at night time and in the morning. EMG done with Dr. Rouse. 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 HPI Details Carole is a 72 year old right hand dominant Diabetic Uz[place] speaking woman who presents for a NCS review of her bilateral hand numbness. She is seen today with her daughter. She complains of numbness in her thumb, index, and middle fingers bilaterally, L>R. Symptoms intermittent, but daily, worse at night. She denies any prior treatment options. She denies any locking or catching. She complains of left shoulder pain, and has been seen by Dr. Kirk in the past for left shoulder impingement. She is on Oxycodone, is Diabetic, and has COPD. [facility] Medical History (Updated 05/14/23 @ 10:36 by Carlin Blum) Asthma-COPD overlap syndrome JIMBO (obstructive sleep apnea) Bilateral anterior knee pain Hypertension Diabetes Bladder cancer Social History (Updated 05/14/23 @ 10:34 by Alberta Josue [facility]) Household Members: None Housing: Apartment Do you presently have visiting nurse or other home services: Yes ([facility]) Patient Tobacco Use Status: Former Tobacco user Tobacco use type: Cigarette Years Smoked: 17 years old, quit 1 year ago service: No Current occupational status: retired and disabled 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 Review of Systems Const All systems reviewed & are unremarkable except as noted in HPI and below Physical Exam Vital Signs: BMI result Body Mass Index 27.9 Const General: cooperative, healthy appearing and no acute distress Orientation/consciousness: patient oriented x3 HEENT Head: Yes normocephalic and Yes atraumatic Eyes EOM: EOMs intact bilaterally Resp Effort & Inspection: normal respiratory effort and able to speak in complete sentences Cardio Jugular venous distension: no JVD Skin General skin exam: turgor normal Rashes: no rashes Neuro General: patient oriented x3 Extrem Other: Evaluation of Bilateral Upper Extremity: The patient is alert, oriented, and in no acute distress Neuro: Median, Ulnar, Radial nerves motor and sensory intact and sensation is normal to the tips of all digits today in clinic No thenar or intrinsic wasting Good APB muscle belly firing and good finger cross Vascular: Cap refill brisk ROM: She can make a fist and extend all her digits No locking or catching Skin: No lacerations or abrasions. General: No Ecchymosis. No Erythema or evidence of infection. When I asked her to elevate her arm over her head she can forward flex and abduct to perhaps 80 degrees at clinic today. I did show her some stretching exercises and encouraged her to start trying to get her arm up over her head. Nerve Conduction Study: IMPRESSION: 1. This is an abnormal study. 2. There is electrodiagnostic evidence for bilateral moderate-severe median neuropathy at the wrist, consistent with carpal tunnel syndrome. 3. There is no electrodiagnostic evidence for ulnar neuropathy, brachial plexopathy, or cervical radiculopathy. Sherrie Reece MD, OSITO 03/07/23 Psych Appearance: grossly normal Affect: normal affect Attitude: cooperative Assessment & Plan Assessment & Plan (1) Carpal tunnel syndrome of left wrist: Code(s): G56.02 - Carpal tunnel syndrome, left upper limb (2) Carpal tunnel syndrome of right wrist: Code(s): G56.01 - Carpal tunnel syndrome, right upper limb (3) Diabetes mellitus: Code(s): E11.9 - Type 2 diabetes mellitus without complications (4) Asthma-COPD overlap syndrome: Code(s): J44.9 - Chronic obstructive pulmonary disease, unspecified Plan Assessment & Plan: 1. Left carpal tunnel syndrome, moderate-severe Symptoms intermittent, but daily, worse at night This is her primary complaint today 2. Right carpal tunnel syndrome, moderate-severe Symptoms intermittent, but daily, worse at night I educated her about this condition I discussed operative and non-operative treatment options The patient would like to proceed with surgery, beginning with the left side She will follow up to discuss treatment for her right side when she has recovered The risks and benefits of operative treatment were discussed with the patient and the patient wishes to proceed with surgery. These risks include, but are not limited to risk of damage to blood vessels, nerves, tendons, infection, recurrence, incomplete relief of preoperative symptoms, persistent pain, possible need for further surgery and the risks associated with regional blocks and anesthesia. The plan is to take the patient to the operating room sometime in the next few weeks for the following procedures: 1. Left carpal tunnel release, under local All of the preoperative paperwork including the consent was reviewed today. All the patient's questions were answered. The patient understands that they will be contacted by our real estate branch manager soon to schedule this procedure She denies blood thinners, heart, kidney issues She has asthma & COPD She is a Diabetic and does not know her most recent HgA1c. She says this is usually well-controlled but she was recently hospitalized for Hypoxia and this may have influenced her results. They will need an updated HgA1c that is <8.1% in order to proceed with surgery, and they expressed understanding 3. Left shoulder impingement Complaints of increased pain She has been seen by Dr. Kirk for this in the past I recommend she work on ROM exercises and follow up with Dr. Kirk for this condition. Scribed for Gayla Liu MD by Carlin Blum, medical office coordinator, on 05/14/23 at 10:35 AM, EST. Coding Level of Care Code New Pt Level 4 (11435) Diagnoses Carpal tunnel syndrome of left wrist G56.02 Carpal tunnel syndrome of right wrist G56.01 Diabetes mellitus E11.9 Asthma-COPD overlap syndrome J44.9
[2023-05-14 10:34] VITALS: BMI 27.9
== END 2023-05-14 10:42 | disposition home or self-care (01) ==
PROVIDERS: PCP Student in an Organized Health Care Education/Training Program; Visit Provider Orthopaedic Surgery
DX: G56.03 Carpal tunnel syndrome, bilateral upper limbs (principal); G56.01 Carpal tunnel syndrome, right upper limb; E11.9 Type 2 diabetes mellitus without complications; J44.9 Chronic obstructive pulmonary disease, unspecified
CPT/HCPCS: 99214

== ENCOUNTER → 2023-05-14 10:22 | Outpatient (BNVA) | payer OTHER, SELFPAY | PROVIDERS: PCP Student in an Organized Health Care Education/Training Program; Visit Provider Orthopaedic Surgery | DX: K21.9 Gastro-esophageal reflux disease without esophagitis (principal); J44.9 Chronic obstructive pulmonary disease, unspecified; R10.13 Epigastric pain; G56.03 Carpal tunnel syndrome, bilateral upper limbs; E11.9 Type 2 diabetes mellitus without complications | CPT/HCPCS: 99202; 99212 ==

== ENCOUNTER 2023-05-14 14:17 | Outpatient (AMB) | payer OTHER, SELFPAY ==
--- NOTE | 2023-05-14 14:27 | MHC.OFFVIS ---
Intake Vital Signs 05/14/23 14:31 05/14/23 14:57 Height 4 ft 11 in Weight 138 lb BMI 27.9 BP 100/47 L Blood Pressure Location Lt brachial Position Sitting Pulse 120 H 104 H Pulse Source Auscultation Pulse Oximetry (%) 96 Oxygen Delivery Method Room Air Intake Visit Reasons: (GERD)/ [place] Screening Intake Note: Patient new consult for 2nd pre colonoscopy screening and GERD. Patient cc: abdominal pain on and off, acid reflex with burning sensation, no good appetite. 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: Yes Accompanied by: Family/Other Allergies No Known Allergies [No Known Allergies*] Allergy (Verified 05/14/23 14:26) Medication List - Last Reconciled 05/14/23 by Winifred Morales PA-C albuterol sulfate 2.5 mg inhalation QID albuterol sulfate 90 mcg/actuation 2 puffs PO Q6H PRN 30 days aspirin 81 mg PO BEDTIME buspirone 10 mg PO BID cetirizine 10 mg PO DAILY cholecalciferol (vitamin D3) 50 mcg PO DAILY cyanocobalamin (vitamin B-12) 1,000 mcg PO QPM dupilumab (Dupixent) 300 mg (2 mL) subcut Q2W fluticasone propionate 50 mcg/actuation 1 spray intranasal DAILY PRN wtsypwsrfrb-wygfgjiii-wziyeojw 200-62.5-25 mcg (Trelegy Ellipta) 1 inh inhalation DAILY gabapentin 300 mg PO TID glipizide ER 10 mg PO DAILY linagliptin 5 mg PO DAILY lisinopril-hydrochlorothiazide 20-12.5 mg 1 tab PO DAILY metformin 500 mg PO DAILY metformin 1,000 mg PO BEDTIME montelukast (Singulair) 10 mg PO BEDTIME pantoprazole 40 mg PO DAILY prednisone See Taper Take 2 tabs daily x 5 days, then 1 tab daily x 5 days prednisone 10 mg orally; 5 tabs p.o. daily x3 days; 4 tabs p.o. daily x3 days; 3 tabs daily x3 days; 2 tabs daily x3 days; 1 tab daily x3 days rosuvastatin 40 mg PO BEDTIME sertraline 150 mg PO DAILY HPI HPI Comments History of Present Illness Details A 72 y/o female- discharged from [facility] 2 days ago for respiratory-here with her adult daughter She says she was admitted with acute respiratory illness, she was on oxygen she was discharged 2 days ago no oxygen she is on prednisone and inhalers. She admits that she is short of breath that worsened exertion- She is here with a little pain ( epigastric)- occ heartburn- for many years- nothing changed She is SOB- daughter says she has difficulty walking due to SOB- taking prednisone- inhalers Appetite is fair, drinks liquids throughout the day Seeing pcp 05/18 She has shortness of breath, fatigue Reviewed hospital course-reviewed labs She has fatigue, no nausea, vomiting, hematemesis, hematochezia, PFSH Medical History Asthma-COPD overlap syndrome JIMBO (obstructive sleep apnea) Bilateral anterior knee pain Hypertension Diabetes Bladder cancer Social History Household Members: None Housing: Apartment Do you presently have visiting nurse or other home services: Yes ([employer]) Patient Tobacco Use Status: Former Tobacco user Tobacco use type: Cigarette Years Smoked: 17 years old, quit 1 year ago service: No Current occupational status: retired and disabled 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 Review of Systems Const All systems reviewed & are unremarkable except as noted in HPI and below Denies chills, Reports fatigue and Denies fever(s) Eyes Denies other visual disturbances ENT Denies dysphagia and Denies odynophagia Card Denies chest pain, Reports dyspnea and Reports dyspnea on exertion Resp Reports dyspnea and Reports dyspnea on exertion GI Reports abdominal pain, Denies change in stool character, Denies GI cramping, Denies dysphagia, Denies heartburn, Denies diarrhea, Denies nausea, Denies odynophagia, Denies vomiting and Denies hematemesis Musc Reports back pain Endo Reports fatigue Physical Exam Vital Signs: Last Vital Signs Pulse 104 H 05/14/23 14:57 BP 100/47 L 05/14/23 14:31 Pulse Ox 96 05/14/23 14:31 Oxygen Delivery Method Room Air 05/14/23 14:31 BMI result Body Mass Index 27.9 Const General: ill appearing; No acute distress Orientation/consciousness: patient oriented x3 Limitations: language barrier Eyes Conjunctivae: conjunctival abnormal (Injected bilaterally no drainage) Resp Effort & Inspection: no audible wheezes, no grunting, no nasal flaring, no respiratory distress and no stridor Auscultation: no rales, no rhonchi, wheezes (mild) and diminished lung sounds Cardio Rate: tachycardic Rhythm: regular rhythm Heart sounds: S1 normal heart sound present and S2 normal heart sound present GI Palpation (GI): Soft to palpation and nontender Auscultation: normal bowel sounds Skin General skin exam: no jaundice Neuro General: patient oriented x3 Psych Speech and movement: Slowed speech present (Psych) Affect: Labile affect present Attitude: cooperative Thought content: Normal thought content present Assessment & Plan Assessment & Plan (1) Asthma-COPD overlap syndrome: Comment: Recent hospital admission discharged 2 days ago Code(s): J44.9 - Chronic obstructive pulmonary disease, unspecified Plan: increase risk anesthesia (2) Epigastric pain: Comment: Vague, chronic-reviewed labs normal liver enzymes-difficult to assess Code(s): R10.13 - Epigastric pain Plan: Continue pantoprazole 40 mg Plan Will follow-up with patient when appropriate She has follow-up on 05/18 with PCP-will await in put Patient Instructions: Pleasant 72-year-old female Vague chronic epigastric pain Will follow-up with PCP and await input Respiratory issues persist or worsen go to ED daughter is present and is in agreement Coding Level of Care Code New Pt Level 4 (46856) Diagnoses Asthma-COPD overlap syndrome J44.9 Epigastric pain R10.13 Time Spent (min) 40 Comment [id number]
[2023-05-14 14:31] VITALS: BP 100/47; PULSE 120; O2SAT 96; BMI 27.9
[2023-05-14 14:57] VITALS: PULSE 104
== END 2023-05-14 15:48 | disposition home or self-care (01) ==
PROVIDERS: PCP Student in an Organized Health Care Education/Training Program; Visit Provider Physician Assistant
DX: J44.9 Chronic obstructive pulmonary disease, unspecified (principal); R10.13 Epigastric pain
CPT/HCPCS: 99204

== ENCOUNTER 2023-05-26 10:33 | Outpatient (AMB) | payer OTHER, SELFPAY ==
--- NOTE | 2023-05-26 10:37 | MHC.OFFVIS ---
Intake Vital Signs 05/26/23 10:47 Height 4 ft 11 in Weight 138 lb BMI 27.9 Intake Visit Reasons: OV - Left Shoulder Impingement Intake Note: Carole is a 72 year old -- hand dominant female who presents today with complaints of left shoulder pain. She has pain with daily activity, worse with overhead activity and at night Her last injection was done on 09/16/22 and she would like to repeat injection today. Pain in shoulders bilateral, when pain raising hands she has pain. 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 Left is worse than right. No injury. Pasin worse with lifting and at night. Injection last summer was helpful. 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 Physical Exam Vital Signs: BMI result Body Mass Index 27.9 Const General: cooperative, healthy appearing, no acute distress and well groomed Orientation/consciousness: oriented to person and oriented to place HEENT Head: Yes normal to inspection, Yes normocephalic and Yes atraumatic Eyes General: appearance normal, both eyes and all related structures Alignment and Position: alignment normal Conjunctivae: conjunctivae normal EOM: EOMs intact bilaterally Neck Neck: Yes normal visual inspection and Yes trachea midline Resp Other: No rerpiratory distress Effort & Inspection: normal respiratory effort and able to speak in complete sentences Cardio Other: Palpable radial pulse with no appreciable rythmic abnormalities GI Other: No abdominal distension Back/Spine/Pelvis Cervical Spine: normal cervical lordosis and cervical ROM normal Skin General skin exam: no rashes or lesions noted Neuro General: oriented to person, oriented to place and gait normal Extrem Other: + H/N 30/90 (with recruitment of scapula) and 130. IR to L5 with pain 4/5 EC with pain + H/N Office Procedures Joint Injection/Drain Joint Injection/Drain Details: Injected 1 mL of Decadron and 3 mL 1% lidocaine and 3 mL of 0.25% Marcaine. Site was prepped using aseptic technique. Patient tolerated the procedure well. Primary Site: left shoulder Approach Used: posterolateral Coding - Large joint Procedure code (CPT) selection complete Assessment & Plan Assessment & Plan (1) Impingement of left shoulder: Code(s): M25.812 - Other specified joint disorders, left shoulder Plan: Injected left shoulder. Discussed hyperglycemic effects of steroids. (2) Diabetes mellitus: Code(s): E11.9 - Type 2 diabetes mellitus without complications Plan: Coding Level of Care Code Est Pt Level 4 (96772) Diagnoses Impingement of left shoulder M25.812 Diabetes mellitus E11.9 CPT Codes Coding - Large joint: 90744 - Large joint ([id number])
[2023-05-26 10:47] VITALS: BMI 27.9
== END 2023-05-26 12:33 | disposition home or self-care (01) ==
PROVIDERS: PCP Student in an Organized Health Care Education/Training Program; Visit Provider Orthopaedic Surgery
DX: M25.812 Other specified joint disorders, left shoulder (principal); E11.9 Type 2 diabetes mellitus without complications
CPT/HCPCS: 20610; 99214

== ENCOUNTER → 2023-05-26 10:33 | Outpatient (BNVA) | payer OTHER, SELFPAY | PROVIDERS: PCP Student in an Organized Health Care Education/Training Program; Visit Provider Orthopaedic Surgery | DX: M75.42 Impingement syndrome of left shoulder (principal); M25.812 Other specified joint disorders, left shoulder; E11.9 Type 2 diabetes mellitus without complications | CPT/HCPCS: 20610; 99212; J0665; J1100 ==

== ENCOUNTER 2023-06-09 11:13 | Outpatient (REF) | payer OTHER, SELFPAY ==
[2023-06-09 13:26] LABS: MANUAL DIFF FLAG NO
[2023-06-09 13:50] LABS: Creatinine Urine 131.92 mg/dL; Microalbumin Urine < 5.0 mg/L
[2023-06-09 14:00] LABS: Basophils Percent Auto 0.3 % (0-2); Eosinophils Absolute Auto 0.1 X10*3/uL (0.0-0.4); Eosinophils Percent Auto 1.9 % (0-4); Hematocrit 36.4 % (37.0-47.0); Hemoglobin 11.5 g/dl (12.0-16.0); Imm Gran Abs Auto 0.04 X10*3/uL (0.00-0.03); Imm Gran Pct Auto 0.6 % (0.0-0.4); Lymphocytes Absolute Auto 1.3 X10*3/uL (1.2-4.9); Lymphocytes Percent Auto 18.7 % (20-40); Mean Corpuscular HGB Conc 31.6 g/dl (31.0-35.0); Mean Corpuscular Hemoglobin 30.5 pg (27.0-33.0); Mean Corpuscular Volume 96.6 fL (80.0-98.0); Mean Platelet Volume 10.3 fL (9.4-12.3); Monocytes Absolute Auto 0.4 X10*3/uL (0.1-1.2); Monocytes Percent Auto 6.2 % (2-11); Neutrophils Absolute Auto 5.1 x10*3/uL (2.0-8.3); Neutrophils Percent Auto 72.3 % (45-73); Platelet Count 287 X10*3/uL (160-400); Red Blood Count 3.77 X10*6/uL (4.20-5.50); Red Cell Distribution Width 12.5 % (11.0-16.0)
[2023-06-09 14:05] LABS: Estimated Average Glucose 200 mg/dL; Hemoglobin A1c % 8.6 % (<6.0)
[2023-06-09 14:12] LABS: Alanine Aminotransferase 13 U/L (0-31); Alkaline Phosphatase 66 U/L (39-117); Anion Gap 12 (12-20); Aspartate Amino Transferase 12 U/L (5-31); Bilirubin Total 0.1 mg/dL (0.0-1.0); Blood Urea Nitrogen 19 mg/dL (9-16); Calcium 9.4 mg/dL (8.4-10.2); Carbon Dioxide 30 mmol/L (22-29); Chloride 101 mmol/L (96-108); Cholesterol 229 mg/dL (<200); Estimated Glomerular Filt Rate 50; Glucose Random 269 mg/dL (60-115); HDL Cholesterol 81 mg/dL (>40); Iron 76 mcg/dL (30-160); LDL Cholesterol Calculated 87 mg/dL (<100); Percent Iron Saturation 25 % (15-50); Potassium 4.1 mmol/L (3.3-5.1); Sodium 139 mmol/L (135-145); Total Iron Binding Capacity 300 mcg/dL (228-428); Total Protein 6.8 g/dL (6.5-8.0); Triglycerides 308 mg/dL (<150); Unsaturated Iron Binding 224 ug/dL
[2023-06-09 14:25] LABS: Ferritin 55 ng/mL (10-250)
== END 2023-06-09 11:14 | disposition home or self-care (01) ==
LOC: HO.HHCL 11:13
PROVIDERS: Visit Provider Student in an Organized Health Care Education/Training Program
DX: E11.9 Type 2 diabetes mellitus without complications (principal); Z79.4 Long term (current) use of insulin
CPT/HCPCS: 36415; 80053; 80061; 82570; 82728; 83036; 83540; 85025

== ENCOUNTER 2023-10-27 13:41 | Outpatient (AMB) | payer OTHER, SELFPAY ==
--- NOTE | 2023-10-27 13:50 | MHC.OFFVIS ---
Vital Signs 10/27/23 13:51 Height 4 ft 11 in Weight 142 lb 3.17 oz BMI 28.7 BP 120/60 Blood Pressure Location Lt brachial Position Sitting Pulse 90 Pulse Source Pulse Oximeter Pulse Oximetry (%) 98 Oxygen Delivery Method Room Air Intake Visit Reasons: COPD Daytime Babysitter Required: No Allergies No Known Allergies [No Known Allergies*] Allergy (Verified 10/27/23 13:53) HPI Comments Details: The patient is a 72-year-old woman known COPD in addition to obstructive sleep apnea. Apparently she has had multiple sleep studies in the past going back to 2010. She has had issues with hypoxia at nighttime. She has daytime drowsiness and does have headaches in the morning. Moderate severity. Her [place] score is elevated. Her last CPAP study was back in 2018 which she did have mild sleep apnea. The patient has become more symptomatic and she does carry cardiovascular risks so this point will repeat her study. I'm hoping home sleep study will be sufficient. In the meantime the patient continues to have shortness of breath she does use inhalers at home but is very confusing for her to know which 1 she is supposed to be using. I do think that we need to optimize respiratory therapy and improve her adherence and we can do this with trelegy. The patient has not had any recent pulmonary function study. She also has nasal congestion. She has had epistaxis. 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 She does use allergy medicines but still has significant congestion. Moderate severity. Complains of a postnasal drip and cough. We will try Astelin nasal spray. 10/27/2020 the patient is here for a pulmonary follow-up visit. She has had been having worsening respiratory symptoms. Has significant wheezing and chest congestion and cough. She has been like this now for few weeks. Seems to be getting worse. She had to stop the Daliresp as it was not helping. She also tried multiple numerous inhalers that have not been helpful. The only beneficial 1 was Bevespi. Will try her on Breztri at this at this time. In the meantime she continues to have significant daytime drowsiness. We did have her undergo a in-lab study. Her AHI was up to 30 consistent with severe sleep apnea. Patient needs to start CPAP therapy at this time. Will make arrangements with local [employer] company to start the therapy. In the meantime we did review her blood work demonstrating significant eosinophilia and also significant elevations in the IgE consistent with allergic asthma. The patient has required maximize respiratory therapy with partial resolution her symptoms and frequent prednisone. The patient is a great candidate for biologic therapy. She had been on Xolair in the past and that appear to be effective for her. I do believe that she brought will respond better to Dupixent at this time. 10/12/2021 The patient is here for a pulmonary follow up visit. She continues to struggle with her asthma. Developed worsening wheezing and productive cough. Prior to this she was doing well for several months. Unfortunately, she is grieving the of her daughter. Could not start the Daliresp. She was started on Dupixent and she feels that is working. We will continue to monitor her progress. If she continues to require prednisone then we could consider switching to Tezspire. 02/25/2022 the patient is here for a pulmonary follow-up visit. She is having worsening respiratory symptoms. Complaining of chest tightness and wheezing. Moderate severity. She was responding very well to the Dupixent. She was no longer requiring prednisone. Her respiratory symptoms were much improved. However for some reason she has not able to get the injections anymore. Will look into it further. Hoping for her to continue biologic therapy. The meantime she does have significant wheezing and will start her on prednisone. She also get her CPAP. The CPAP therapy will be affecting beneficial. Although still not adjusted for her. She is having issues because is having too much water draining to her mask. I also see that she is using a nasal pillow mask. This is that appear to be effective for her. Therefore I did provide her with an F20 fullface mask. We continue with the APAP at the current settings but I brought the humidity down to 1. I am hopeful that she can tolerated better. She will bring in the next few months in order to make sure that she is doing better with. She is aware that she needs to use it at least 4 hours a day. 04/25/2023 the patient is here for sick visit. She has had worsening respiratory symptoms for the last week. She is feeling that she is getting worse. Significant chest tightness and some wheezing. Moderate severity. Unfortunately her nebulizer tubing broken she has not been able to use it. She does have a Trelegy inhaler she has been using also her rescue inhaler. These therapies only been partially helpful. And only for short period of time. The patient has been struggling with significant wheezing. During the last visit she did require prednisone. Prior to that she had been on biologic therapies which have been very helpful. At this time will provide her with a nebulizer treatment in the office. After the treatment she was able to improves therefore will send her additional prednisone and antibiotics in the pharmacy. Patient also took the tubing were her to use her nebulizer home to to 4 times a day. If the patient is no better she will call the office for an earlier assessment. Although I so follow-up in 4-6 months. 10/27/2023 the patient is here for a pulmonary follow-up visit. She continues to struggle with breathing. Significant wheezing and chest congestion. Moderate to severe. She had been on multiple courses of prednisone. She was approved to restart her Dupixent but she did not get the prescription filled as of yet. I did walk the family to the pharmacy and she was able to pick it up. Therefore she can start as soon as possible. In the meantime she does have significant wheezing on examination and she must be treated for an asthma exacerbation at this time. She also has chronic bronchitis. Therefore will start azithromycin 3 times a week for chronic bronchitis treatment. She will need to get an EKG however. She will continue with the current respiratory therapy including Trelegy. The patient is also a former smoker. She Only quit this year. She has smoked for more than 40 years. She does have a greater than 30 pack-year history of smoking so therefore will go ahead and refer her to the lung cancer screening program at this time. 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) Patient Tobacco Use Status: Former Tobacco user Tobacco use type: Cigarette Years Smoked: 17 years old, quit 1 year ago service: No Current occupational status: retired and disabled 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 Review of Systems Const Reports daytime sleepiness and Denies night sweats ENT Denies change in voice, Denies lip swelling, Denies mouth pain, Reports nasal congestion, Reports nasal discharge and Denies tongue swelling Card Denies chest pain and Reports dyspnea on exertion Resp Reports chest congestion, Reports cough, Denies hemoptysis, Reports dyspnea on exertion and Reports wheezing GI Denies abdominal pain Musc Denies no additional complaints Neuro Denies Neuro-related abnormal movements Psych Denies no additional complaints Kiran/Lymph Denies easy bleeding and Denies lymphadenopathy Aller/Immun Denies lip swelling, Denies tongue swelling and Reports wheezing Physical Exam Vital Signs: Last Vital Signs Pulse 90 10/27/23 13:51 BP 120/60 10/27/23 13:51 Pulse Ox 98 10/27/23 13:51 Oxygen Delivery Method Room Air 10/27/23 13:51 BMI result Body Mass Index 28.7 Const General: alert Neck Neck: Yes normal visual inspection, Yes full ROM and Yes no lymphadenopathy Chest Chest palpation & inspection: normal inspection of the chest Resp Effort & Inspection: prolonged expiratory phase Auscultation: rhonchi, wheezes and diminished lung sounds Cardio Rate: regular rate Rhythm: regular rhythm Heart sounds: S1 normal heart sound present and S2 normal heart sound present GI Palpation (GI): Soft to palpation and nontender Auscultation: normal bowel sounds Skin General skin exam: rashes and/or lesions noted Assessment & Plan Assessment & Plan (1) Asthma: Code(s): J45.909 - Unspecified asthma, uncomplicated Category: Medical Qualifiers: Asthma complication type: with acute exacerbation Asthma persistence: persistent Asthma severity: moderate Qualified Code(s): J45.41 - Moderate persistent asthma with (acute) exacerbation (2) Asthma-COPD overlap syndrome: Comment: Recent hospital admission discharged 2 days ago Code(s): J44.9 - Chronic obstructive pulmonary disease, unspecified Category: Medical (3) JIMBO (obstructive sleep apnea): Code(s): G47.33 - Obstructive sleep apnea (adult) (pediatric) Category: Medical Plan start prednisone taper start azithromycin MWF EKG Nebulizer with albuterol 2-4 times aday continue Trelegy 200mcg JULIO as needed Continue Claritin/astelin/Singulair Continue Fluticasone NS continue APAP, provided her a med F20 mask restart Dupexent for severe Allergic asthma once available F/U 2 months Orders: Orders ECG 12 lead EKG Today J44.9 - Chronic obstructive pulmonary disease, unspecified Referrals Lung Cancer Screening Referral F17.210 - Nicotine dependence, cigarettes, uncomplicated Medications: New azithromycin Take 1 tablet on Friday/Friday/Friday 250 mg PO 3XW 12 tabs 6RF 28 days K21.9 - Gastro-esophageal reflux disease without esophagitis prednisone PO daily; Take 2 tabs daily x 7 days, then 1 tab daily x 7 days. 21 tabs 2RF 14 days Changed From montelukast (Singulair) 10 mg PO BEDTIME To montelukast (Singulair) 10 mg PO BEDTIME 90 tabs 3RF 90 days Coding Level of Care Code Est Pt Level 4 (13480) Complex EM visit Add On G2211 Diagnoses Moderate persistent asthma with acute exacerbation J45.41 Asthma complication type: with acute exacerbation Asthma persistence: persistent Asthma severity: moderate Asthma-COPD overlap syndrome J44.9 JIMBO (obstructive sleep apnea) G47.33 Time Spent (min) 18
[2023-10-27 13:51] VITALS: BP 120/60; PULSE 90; O2SAT 98; BMI 28.7
== END 2023-10-27 14:12 | disposition home or self-care (01) ==
PROVIDERS: PCP Student in an Organized Health Care Education/Training Program; Visit Provider Hospitalist
DX: J45.41 Moderate persistent asthma with (acute) exacerbation (principal); J44.9 Chronic obstructive pulmonary disease, unspecified; G47.33 Obstructive sleep apnea (adult) (pediatric)
CPT/HCPCS: 99214; G2211

== ENCOUNTER → 2023-10-27 13:41 | Outpatient (BNVA) | payer OTHER, SELFPAY | PROVIDERS: PCP Student in an Organized Health Care Education/Training Program; Visit Provider Hospitalist | DX: J45.41 Moderate persistent asthma with (acute) exacerbation (principal); J44.9 Chronic obstructive pulmonary disease, unspecified; G47.33 Obstructive sleep apnea (adult) (pediatric) | CPT/HCPCS: 99212 ==

== ENCOUNTER 2023-12-25 12:26 | Outpatient (REF) | payer OTHER, SELFPAY ==
--- NOTE | ~2023-12-25 | MM_ITS ---
EXAMINATION: MM SCREENING DIGITAL BREAST TOMOSYNTHESIS, BILATERAL CLINICAL INFORMATION: Screening. Asymptomatic. COMPARISON: Mammography: Comparison is made with available priors TECHNIQUE: Digital breast mammography with tomosynthesis is performed in both the craniocaudal and mediolateral oblique views along with computer-aided detection (CAD). FINDINGS: The breasts are heterogeneously dense, which may obscure small masses (ACR BI-RADS breast composition Category c). Left marker clip. There are no significant masses, abnormal calcifications, or other abnormalities. MM/MM tomosynthesis screening BI IMPRESSION: No mammographic evidence of malignancy. ASSESSMENT: BI-RADS BI-RADS 2 - Benign Findings RECOMMENDATION: Routine annual mammography screening. 1 year F/U This examination should not preclude the clinical evaluation of a suspicious palpable abnormality. This patient's information was entered into a reminder system with a target due date for their next mammogram. Electronically signed by: Fabiana Casiano DO 01/02/2024 04:08 PM FELIPE
== END 2023-12-25 12:27 | disposition home or self-care (01) ==
LOC: HO.MAMMO 12:26
PROVIDERS: PCP Student in an Organized Health Care Education/Training Program; Visit Provider Student in an Organized Health Care Education/Training Program
DX: Z12.31 Encounter for screening mammogram for malignant neoplasm of breast (principal); J44.9 Chronic obstructive pulmonary disease, unspecified; G47.33 Obstructive sleep apnea (adult) (pediatric); J45.51 Severe persistent asthma with (acute) exacerbation
CPT/HCPCS: 77063; 77067; 96372; 99212; J2919

== ENCOUNTER → 2023-12-25 12:45 | Outpatient (BNV) | payer OTHER, SELFPAY | PROVIDERS: PCP Student in an Organized Health Care Education/Training Program; Visit Provider Internal Medicine | DX: Z12.31 Encounter for screening mammogram for malignant neoplasm of breast (principal) | CPT/HCPCS: 77063; 77067 ==

== ENCOUNTER 2023-12-25 13:01 | Outpatient (AMB) | payer OTHER, SELFPAY ==
[2023-12-25 13:23] VITALS: BP 116/60; PULSE 96; O2SAT 96
--- NOTE | 2023-12-25 13:23 | A.OFFVIS_ITS ---
Vital Signs 12/25/23 13:23 Weight 142 lb 3.17 oz BP 116/60 Blood Pressure Location Lt brachial Position Sitting Pulse 96 Pulse Source Pulse Oximeter Pulse Oximetry (%) 96 Oxygen Delivery Method Room Air Intake Visit Reasons: COPD Allergies No Known Allergies [No Known Allergies*] Allergy (Verified 12/25/23 13:27) Medication List - Last Reconciled 12/25/23 by Florencia Bernal LPN albuterol sulfate 2.5 mg inhalation QID albuterol sulfate 90 mcg/actuation 2 puffs PO Q6H PRN 30 days aspirin 81 mg PO BEDTIME azithromycin 250 mg PO 3XW 28 days buspirone 10 mg PO BID cetirizine 10 mg PO DAILY cholecalciferol (vitamin D3) 50 mcg PO DAILY cyanocobalamin (vitamin B-12) 1,000 mcg PO QPM dupilumab (Dupixent) 300 mg (2 mL) subcut Q2W fluticasone propionate 50 mcg/actuation 1 spray intranasal DAILY PRN cghmvbxzwne-fcihbhoiq-ropxbevd 200-62.5-25 mcg (Trelegy Ellipta) 1 inh inhalation DAILY gabapentin 300 mg PO TID glipizide ER 10 mg PO DAILY linagliptin 5 mg PO DAILY lisinopril-hydrochlorothiazide 20-12.5 mg 1 tab PO DAILY metformin 500 mg PO DAILY metformin 1,000 mg PO BEDTIME montelukast (Singulair) 10 mg PO BEDTIME 90 days nebulizers As directed pantoprazole 40 mg PO DAILY prednisone PO daily; Take 2 tabs daily x 7 days, then 1 tab daily x 7 days. 14 days rosuvastatin 40 mg PO BEDTIME sertraline 150 mg PO DAILY HPI Comments Details: The patient is a 72-year-old woman known COPD in addition to obstructive sleep apnea. Apparently she has had multiple sleep studies in the past going back to 2010. She has had issues with hypoxia at nighttime. She has daytime drowsiness and does have headaches in the morning. Moderate severity. Her [place] score is elevated. Her last CPAP study was back in 2018 which she did have mild sleep apnea. The patient has become more symptomatic and she does carry cardiovascular risks so this point will repeat her study. I'm hoping home sleep study will be sufficient. In the meantime the patient continues to have shortness of breath she does use inhalers at home but is very confusing for her to know which 1 she is supposed to be using. I do think that we need to optimize respiratory therapy and improve her adherence and we can do this with caro. The patient has not had any recent pulmonary function study. She also has nasal congestion. She has had epistaxis. 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 She does use allergy medicines but still has significant congestion. Moderate severity. Complains of a postnasal drip and cough. We will try Astelin nasal spray. 10/27/2020 the patient is here for a pulmonary follow-up visit. She has had been having worsening respiratory symptoms. Has significant wheezing and chest congestion and cough. She has been like this now for few weeks. Seems to be getting worse. She had to stop the Daliresp as it was not helping. She also tried multiple numerous inhalers that have not been helpful. The only beneficial 1 was Bevespi. Will try her on Breztri at this at this time. In the meantime she continues to have significant daytime drowsiness. We did have her undergo a in-lab study. Her AHI was up to 30 consistent with severe sleep apnea. Patient needs to start CPAP therapy at this time. Will make arrangements with local [employer] company to start the therapy. In the meantime we did review her blood work demonstrating significant eosinophilia and also significant elevations in the IgE consistent with allergic asthma. The patient has required maximize respiratory therapy with partial resolution her symptoms and frequent prednisone. The patient is a great candidate for biologic therapy. She had been on Xolair in the past and that appear to be effective for her. I do believe that she brought will respond better to Dupixent at this time. 10/12/2021 The patient is here for a pulmonary follow up visit. She continues to struggle with her asthma. Developed worsening wheezing and productive cough. Prior to this she was doing well for several months. Unfortunately, she is grieving the of her daughter. Could not start the Daliresp. She was started on Dupixent and she feels that is working. We will continue to monitor her progress. If she continues to require prednisone then we could consider switching to Tezspire. 02/25/2022 the patient is here for a pulmonary follow-up visit. She is having worsening respiratory symptoms. Complaining of chest tightness and wheezing. Moderate severity. She was responding very well to the Dupixent. She was no longer requiring prednisone. Her respiratory symptoms were much improved. However for some reason she has not able to get the injections anymore. Will look into it further. Hoping for her to continue biologic therapy. The meantime she does have significant wheezing and will start her on prednisone. She also get her CPAP. The CPAP therapy will be affecting beneficial. Although still not adjusted for her. She is having issues because is having too much water draining to her mask. I also see that she is using a nasal pillow mask. This is that appear to be effective for her. Therefore I did provide her with an F20 fullface mask. We continue with the APAP at the current settings but I brought the humidity down to 1. I am hopeful that she can tolerated better. She will bring in the next few months in order to make sure that she is doing better with. She is aware that she needs to use it at least 4 hours a day. 04/25/2023 the patient is here for sick visit. She has had worsening respiratory symptoms for the last week. She is feeling that she is getting worse. Significant chest tightness and some wheezing. Moderate severity. Unfortunately her nebulizer tubing broken she has not been able to use it. She does have a Trelegy inhaler she has been using also her rescue inhaler. These therapies only been partially helpful. And only for short period of time. The patient has been struggling with significant wheezing. During the last visit she did require prednisone. Prior to that she had been on biologic therapies which have been very helpful. At this time will provide her with a nebulizer treatment in the office. After the treatment she was able to improves therefore will send her additional prednisone and antibiotics in the pharmacy. Patient also took the tubing were her to use her nebulizer home to to 4 times a day. If the patient is no better she will call the office for an earlier assessment. Although I so follow-up in 4-6 months. 10/27/2023 the patient is here for a pulmonary follow-up visit. She continues to struggle with breathing. Significant wheezing and chest congestion. Moderate to severe. She had been on multiple courses of prednisone. She was approved to restart her Dupixent but she did not get the prescription filled as of yet. I did walk the family to the pharmacy and she was able to pick it up. Therefore she can start as soon as possible. In the meantime she does have significant wheezing on examination and she must be treated for an asthma exacerbation at this time. She also has chronic bronchitis. Therefore will start azithromycin 3 times a week for chronic bronchitis treatment. She will need to get an EKG however. She will continue with the current respiratory therapy including Trelegy. The patient is also a former smoker. She Only quit this year. She has smoked for more than 40 years. She does have a greater than 30 pack-year history of smoking so therefore will go ahead and refer her to the lung cancer screening program at this time. 12/25/2023 the patient is here for a pulmonary follow-up visit. She is struggling with breathing again. She did get the Dupixent the last time but then she did not get it mailed to her house so she was not taking it regularly. She continues use her respiratory therapy with partial improvement. She also was using the azithromycin 3 times a week without any significant improvement. Therefore she can stop that and will going to send her different antibiotic to the pharmacy. The patient is going to require Solu-Medrol today she has significant wheezing. And she needs to continue the Dupixent every 2 weeks more coherently. When she returns in 6-8 weeks will reassess. If she continues to have difficulties will switch over her biologic to a different agent. Will go ahead have her get an x-ray today. Consider bronchoscopy to better address the airways further if she does not getting any improvement. 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 Tobacco Use Status: Former Tobacco user Tobacco use type: Cigarette Years Smoked: 17 years old, quit 1 year ago service: No Current occupational status: retired and disabled 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 Review of Systems Const Denies night sweats ENT Denies change in voice, Denies lip swelling, Denies mouth pain, Reports nasal congestion, Reports nasal discharge and Denies tongue swelling Card Denies chest pain and Reports dyspnea on exertion Resp Reports chest congestion, Reports cough, Denies hemoptysis, Reports dyspnea on exertion and Reports wheezing GI Denies abdominal pain Musc Denies no additional complaints Neuro Denies Neuro-related abnormal movements Psych Denies no additional complaints Kiran/Lymph Denies easy bleeding and Denies lymphadenopathy Aller/Immun Denies lip swelling, Denies tongue swelling and Reports wheezing Physical Exam Vital Signs: Last Vital Signs Pulse 96 12/25/23 13:23 BP 116/60 12/25/23 13:23 Pulse Ox 96 12/25/23 13:23 Oxygen Delivery Method Room Air 12/25/23 13:23 Const General: alert Neck Neck: Yes normal visual inspection, Yes full ROM and Yes no lymphadenopathy Chest Chest palpation & inspection: normal inspection of the chest Resp Effort & Inspection: prolonged expiratory phase Auscultation: rhonchi, wheezes and diminished lung sounds Cardio Rate: regular rate Rhythm: regular rhythm Heart sounds: S1 normal heart sound present and S2 normal heart sound present GI Palpation (GI): Soft to palpation and nontender Auscultation: normal bowel sounds Skin General skin exam: rashes and/or lesions noted Office Meds methylprednisolone sod suc(PF) 125 mg/2 mL solution for injection Performing Provider: Bry Morales MD Performing Location: [facility] Administered by: Florencia Bernal LPN on 12/25/23 13:51 Dose Route Admin Location Dispensed Lot Number Expiration Date [facility] [employer] 125 mg IM R 2 ea [id number] 10/17/25 4941-4493-85 [employer] Comments: total dose given 125mg/2ml Assessment & Plan Assessment & Plan (1) Asthma: Code(s): J45.909 - Unspecified asthma, uncomplicated Category: Medical Qualifiers: Asthma complication type: with acute exacerbation Asthma persistence: persistent Asthma severity: severe Qualified Code(s): J45.51 - Severe persistent asthma with (acute) exacerbation (2) Asthma-COPD overlap syndrome: Code(s): J44.9 - Chronic obstructive pulmonary disease, unspecified Category: Medical (3) JIMBO (obstructive sleep apnea): Code(s): G47.33 - Obstructive sleep apnea (adult) (pediatric) Category: Medical Plan Solumedrol IM x 1 start prednisone taper, will stay on 10mg daily stop azithromycin MWF start Augmentin Nebulizer with albuterol 2-4 times aday continue Trelegy 200mcg JULIO as needed Continue Claritin/astelin/Singulair Continue Fluticasone NS continue APAP, provided her a med F20 mask continue Dupexent for severe Allergic asthma. Consider Tezspire if no better bloodwork F/U 2 months Orders: Orders Erythrocyte Sedimentation Rate Today J44.9 - Chronic obstructive pulmonary disease, unspecified XR chest 2V Today J44.9 - Chronic obstructive pulmonary disease, unspecified AMB Methylprednisolone Sod Succ Injection Today J44.9 - Chronic obstructive pulmonary disease, unspecified Immunoglobulins,IgG IgA IgM Today J44.9 - Chronic obstructive pulmonary disease, unspecified Immunoglobulin E Today J44.9 - Chronic obstructive pulmonary disease, unspecified Medications: New amoxicillin-pot clavulanate 875-125 mg 1 tab PO BID 28 tabs 0RF 14 days roflumilast (Daliresp) 500 mcg PO DAILY 30 tabs 11RF 30 days prednisone 20 mg (2 x 10 mg) PO DAILY 60 tabs 3RF 30 days albuterol sulfate 2.5 mg (3 mL) inhalation QID 180 mL 0RF shortness of breath or wheezing J44.9 - Chronic obstructive pulmonary disease, unspecified Refilled albuterol sulfate 90 mcg/actuation 2 puffs PO Q6H PRN 8.5 grams 11RF shortness of breath or wheezing 30 days Discontinued azithromycin Take 1 tablet on Friday/Friday/Friday Discontinued Reason: Doctor's Order 250 mg PO 3XW 28 days 12 tabs 6RF K21.9 - Gastro-esophageal reflux disease without esophagitis Coding Level of Care Code Est Pt Level 4 (78064) Complex EM visit Add On G2211 Diagnoses Severe persistent asthma with acute exacerbation J45.51 Asthma complication type: with acute exacerbation Asthma persistence: persistent Asthma severity: severe Asthma-COPD overlap syndrome J44.9 JIMBO (obstructive sleep apnea) G47.33 Time Spent (min) 18
== END 2023-12-25 13:50 | disposition home or self-care (01) ==
LOC: HO.HPS 13:02
PROVIDERS: PCP Student in an Organized Health Care Education/Training Program; Visit Provider Hospitalist
DX: J45.51 Severe persistent asthma with (acute) exacerbation (principal); J44.9 Chronic obstructive pulmonary disease, unspecified; G47.33 Obstructive sleep apnea (adult) (pediatric)
CPT/HCPCS: 99214; G2211

== ENCOUNTER 2024-01-06 11:25 | Outpatient (REF) | payer OTHER, SELFPAY ==
[2024-01-06 13:56] LABS: Hematocrit 34.7 % (37.0-47.0); Hemoglobin 11.4 g/dl (12.0-16.0); Mean Corpuscular HGB Conc 32.9 g/dl (31.0-35.0); Mean Corpuscular Hemoglobin 32.3 pg (27.0-33.0); Mean Corpuscular Volume 98.3 fL (80.0-98.0); Mean Platelet Volume 10.3 fL (9.4-12.3); Platelet Count 357 X10*3/uL (160-400); Red Blood Count 3.53 X10*6/uL (4.20-5.50); Red Cell Distribution Width 12.6 % (11.0-16.0); White Blood Count 6.4 X10*3/uL (4.8-10.8)
[2024-01-06 14:19] LABS: Creatinine Urine 162.24 mg/dL; Microalbum/Creatinine Ratio Ur 4.9 ug/mg cr (<30)
[2024-01-06 14:30] LABS: Estimated Average Glucose 146 mg/dL; Hemoglobin A1C 142.6407 umol/L; Hemoglobin A1c % 6.7 % (<6.0); Total Hemoglobin (HGBA1C) 2890.8422 umol/L
[2024-01-06 14:41] LABS: Alanine Aminotransferase 43 U/L (0-31); Alkaline Phosphatase 55 U/L (39-117); Anion Gap 9 (12-20); Aspartate Amino Transferase 26 U/L (5-31); Bilirubin Total 0.2 mg/dL (0.0-1.0); Blood Urea Nitrogen 16 mg/dL (9-16); Calcium 9.5 mg/dL (8.4-10.2); Carbon Dioxide 28 mmol/L (22-29); Chloride 107 mmol/L (96-108); Cholesterol 198 mg/dL (<200); Estimated Glomerular Filt Rate > 60; Ferritin 62 ng/mL (10-250); Glucose Random 159 mg/dL (60-115); HDL Cholesterol 66 mg/dL (>40); Iron 69 mcg/dL (30-160); Percent Iron Saturation 22 % (15-50); Potassium 3.8 mmol/L (3.3-5.1); Sodium 140 mmol/L (135-145); TSH reflex Free T4 0.34 uIU/mL (0.32-4.0); Total Iron Binding Capacity 311 mcg/dL (228-428); Total Protein 6.7 g/dL (6.5-8.0); Triglycerides 443 mg/dL (<150); Unsaturated Iron Binding 242 ug/dL; Vitamin D 25-OH Total 31.7 ng/mL (>30)
[2024-01-06 14:42] LABS: Erythrocyte Sedimentation Rate 17 MM/HR (0-20)
[2024-01-06 14:49] LABS: Folate 11.2 ng/mL (> or = 4.0); Vitamin B12 493 pg/mL (200-900)
[2024-01-06 15:07] LABS: CT PCR NOT DETECTED (Not Detect.); NG PCR NOT DETECTED (Not Detect.)
[2024-01-07 03:40] LABS: Syphilis Screen Nonreactive (Nonreactive)
[2024-01-07 03:49] LABS: HBS Num1 65.85 mIU/mL (0-7.99); HBsAGNum1 0.42 S/CO (0.00-0.99); HIV AB/AG Nonreactive (Nonreactive); HIV Num 1 0.05 S/CO (0.00-0.99); Hepatitis B Core Antibody Nonreactive (Nonreactive); Hepatitis B Surface Antigen Negative (Negative); ~HepC Num1 0.05 S/CO (0.00-0.79); ~Hepatitis B Surface Antibody REACTIVE (Nonreactive); ~Hepatitis C Antibody Nonreactive (Nonreactive)
[2024-01-07 14:59] LABS: Immunoglobulin E 76 kU/L (<OR=114)
[2024-01-07 20:58] LABS: IgA 294 mg/dL (70-320); IgG 731 mg/dL (600-1540); IgM 55 mg/dL (50-300)
== END 2024-01-06 11:26 | disposition home or self-care (01) ==
LOC: HO.HHCL 11:25
PROVIDERS: Student in an Organized Health Care Education/Training Program; Visit Provider Hospitalist
DX: Z00.00 Encounter for general adult medical examination without abnormal findings (principal); J44.9 Chronic obstructive pulmonary disease, unspecified; Z13.1 Encounter for screening for diabetes mellitus
CPT/HCPCS: 36415; 80053; 80061; 82043; 82306; 82570; 82607; 82728; 82746; 82784; 82785; 83036; 83540; 84443; 85027; 85652; 86704; 86706; 86780; 86803; 87340; 87389; 87491; 87591

== ENCOUNTER 2024-01-30 10:21 | Outpatient (AMB) | payer OTHER, SELFPAY ==
--- NOTE | 2024-01-30 07:44 | A.OFFVIS_ITS ---
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 Patient started smoking at age 15 for 50 years at 1/2-1ppd. She has quit smoking for a period of time after son born at age 24 but then restarted. She quit smoking 3 years ago in 2020. . Denies marijuana use. Denies second hand smoke exposure. Denies exposure to chemicals or substances like asbestos. . Denies known family history of lung cancer. Reports personal history of bladder cancer. - papillary urothelial carcinoma - non-invasive low grade - s/p TURBT 08/[address] in last year. . Denies recent travel outside the [place]. Denies recent respiratory illness or recent hospitalization for respiratory issues. Denies testing positive for COVID x 3 and was hospitalized once. Admits receiving COVID Vaccine. . Denies fever, chills, new/worsening cough, hemoptysis, hoarseness or dysphagia. Denies significant chest pain, significant dyspnea or unintentional weight loss. Patient Lung Cancer Screening Questionnaire reviewed with patient by provider. . Shared Decision Making Completed. Patient meets criteria. Discussed in detail with patient, the risk vs benefit of LDCT screening. Patient consents to proceed with scan. Discussed and encouraged continue smoking cessation. [facility] Medical History (Updated 01/30/24 @ 11:12 by Cass Vega PA-C) Personal history of nicotine dependence Osteopenia Bladder cancer (~2018) Hypertension Diabetes mellitus Asthma-COPD overlap syndrome JIMBO (obstructive sleep apnea) Nicotine dependence, cigarettes, uncomplicated Bilateral anterior knee pain Surgical History (Updated 12/15/23 @ 13:05 by Cass Vega PA-C) History of transurethral resection of bladder tumor (TURBT) History of esophagogastroduodenoscopy (EGD) History of colonoscopy Social History (Updated 01/30/24 @ 11:13 by Cass Vega PA-C) Household Members: None Housing: Apartment 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 - Patient meets criteria for LDCT for lung cancer screening purposes and is asymptomatic. - Smoking cessation counseling offered. Patients can always call [phone]. - Will arrange for a LDCT scan of the chest for screening purposes at [facility]. - Risks, benefits, and alternatives were discussed in detail and the patient agrees to proceed. - Risks discussed include but are not limited to: radiation exposure, anxiety during testing and while awaiting results, false negatives, false positives and possibility of additional intervention such as further imaging or surgical procedures for benign disease. - Benefits are obviously detection of lung cancer at an early stage which can l ead to improved outcomes. - Discussed the importance of screening program compliance with adherence to yearly LDCT scan as scheduled - or sooner interval scans for personalized screening regimen. - Discussed follow up plan. Our office will send a letter discussing results and if needed set up phone call and office visit based on CT findings. - Patient educated on results categorization and the management decisions for suspicious findings potentially found on the screening LDCT scan. Any patient with a Lung RADS score of 3 or 4 will be reviewed by a multidisciplinary team at [facility] to form a plan of action in regards to scan findings. - If further work up is warranted for a suspicious lung finding this will be followed by the Lung Cancer Screening program in conjunction with the Thoracic Surgery Department at [facility]. - A copy of the office note and LDCT will be sent to the patient's PCP - as well as documentation on any associated further plans of care. - Incidental findings on LDCT are the PCP's responsibility. These findings are indicated with an S finding on the LDCT Assessment. A note discussing the findings will be sent to the PCP who is then responsible for further management. - All questions answered.? Coding Level of Care Code Lung Cancer Screening G0296 Diagnoses Personal history of nicotine dependence Z87.891
== END 2024-01-30 11:01 | disposition home or self-care (01) ==
PROVIDERS: PCP Student in an Organized Health Care Education/Training Program; Visit Provider Physician Assistant Medical
DX: Z87.891 Personal history of nicotine dependence (principal)
CPT/HCPCS: G0296

== ENCOUNTER 2024-01-30 10:48 | Outpatient (REF) | payer OTHER, SELFPAY | END 2024-01-30 10:49 | disposition home or self-care (01) | LOC: HO.CT 10:48 | PROVIDERS: PCP Student in an Organized Health Care Education/Training Program; Visit Provider Physician Assistant Medical | DX: Z12.2 Encounter for screening for malignant neoplasm of respiratory organs (principal); F17.210 Nicotine dependence, cigarettes, uncomplicated | CPT/HCPCS: 71271; G0296 ==

== ENCOUNTER 2024-02-15 13:16 | Emergency (ER) | payer OTHER, SELFPAY ==
[2024-02-15] VITALS (11 sets, daily range): BP systolic 103–117; BP diastolic 49–68; PULSE 82–115; RESP 18–33; TEMP 36.1–37.1; O2SAT 95–100; BMI 30.1
--- NOTE | ~2024-02-15 | XR_ITS ---
CLINICAL HISTORY: SOB 2 view chest x-ray Comparison: CR/SR - XR CHEST 1V - 05/11/23 10:21 EDT Findings: No consolidation or effusion. Normal size heart. No acute fracture. IMPRESSION: 1. No acute findings. This document has been electronically signed by: Kindra Huff MD on 02/15/2024 14:22:01
--- NOTE | ~2024-02-15 | CT_ITS ---
CLINICAL HISTORY: neck pain x1 week CT cervical spine without contrast Comparison: None Findings: Trace retrolisthesis of C3 on C4 and C5 on C6. Multilevel spondylosis. Left-sided facet osteoarthritis at C2-C3. No central canal stenosis. No acute fractures or dislocations. No acute findings on limited view of the intracranial contents. Soft tissues of the neck are normal. No consolidation or effusion at the lung apices. IMPRESSION: No acute findings. This document has been electronically signed by: Kindra Huff MD on 02/15/2024 14:39:40
--- NOTE | 2024-02-15 13:19 | ECG_ITS ---
Test Reason : CP Blood Pressure : / mmHG Vent. Rate : 105 BPM Atrial Rate : 105 BPM P-R Int : 120 ms QRS Dur : 068 ms QT Int : 344 ms P-R-T Axes : 071 -09 083 degrees QTc Int : 454 ms Sinus tachycardia Low voltage QRS Borderline ECG When compared with ECG of 06-MAY-2023 11:18, No significant change was found Referred By: Racheal Camacho Electronically Signed By:YOUSIF MATHIS MD
--- NOTE | 2024-02-15 13:21 | ED_ITS ---
HPI - SOB/Dyspnea General Chief Complaint: Dyspnea Stated Complaint: SOB Time Seen by Provider: 02/15/24 16:26 Source: patient and family Limitations: language barrier History of Present Illness ED Provider: Thea Gambino PA-C HPI Narrative: 73-year-old female with a history of asthma/COPD, ongoing tobacco abuse, diabetes, arthritis with chronic pain presents with shortness of breath. Patient's granddaughter indicates that her grandmother has been increasingly short of breath over the past 2 weeks, over the past few days her symptoms worsened. Associated chest tightness, cough that is productive at times with worsening wheezing. Patient becomes profoundly dyspneic with activity. Patient does not use oxygen at home. Unclear if the patient has had fevers at home. No active GI symptoms, no sick contacts with viral symptoms. Lastly, the patient complains myalgias, neck and back pain. No preceding injury, no weakness of upper extremities, lower extremities or paresthesia. Related Data Home Medications ?Medication ?Instructions ?Recorded ?Confirmed aspirin 81 mg tablet,delayed 81 mg PO BEDTIME 07/11/20 12/25/23 release cetirizine 10 mg tablet 10 mg PO DAILY 07/11/20 12/25/23 cholecalciferol (vitamin D3) 50 50 mcg PO DAILY 07/11/20 12/25/23 mcg (2,000 unit) capsule fluticasone propionate 50 1 spray intranasal DAILY PRN 07/11/20 12/25/23 mcg/actuation nasal Allergy Symptoms spray,suspension gabapentin 300 mg capsule 300 mg PO TID 07/11/20 12/25/23 glipizide 10 mg tablet, extended 10 mg PO DAILY 07/11/20 12/25/23 release 24 hr linagliptin 5 mg tablet 5 mg PO DAILY 07/11/20 12/25/23 metformin 500 mg tablet 1,000 mg PO BEDTIME 07/11/20 12/25/23 pantoprazole 40 mg tablet,delayed 40 mg PO DAILY 07/11/20 12/25/23 release sertraline 100 mg tablet 150 mg PO DAILY 07/11/20 12/25/23 lisinopril 20 1 tab PO DAILY 10/12/21 12/25/23 mg-hydrochlorothiazide 12.5 mg tablet rosuvastatin 40 mg tablet 40 mg PO BEDTIME 10/12/21 12/25/23 buspirone 10 mg tablet 10 mg PO BID 02/25/22 12/25/23 cyanocobalamin (vitamin B-12) 1,000 mcg PO QPM 05/06/23 12/25/23 1,000 mcg tablet metformin 500 mg tablet 500 mg PO DAILY 05/06/23 12/25/23 nebulizers 10/27/23 Previous Rx's ?Medication ?Instructions ?Recorded dupilumab 300 mg/2 mL subcutaneous 300 mg (2 mL) subcut Q2W #4 mL 06/30/23 syringe (Dupixent) montelukast 10 mg tablet 10 mg PO BEDTIME 90 days #90 tabs 10/27/23 (Singulair) prednisone 10 mg tablet See Rx Instructions PO DAILY 14 10/27/23 days #21 tabs fluticasone fur. 200 mcg-umeclid 1 inh inhalation DAILY #60 ea 12/17/23 62.5 mcg-vilant 25 mcg inhalat.powder (Trelegy Ellipta) albuterol sulfate 2.5 mg/3 mL 2.5 mg (3 mL) inhalation QID 12/25/23 (0.083 %) solution for nebulization shortness of breath or wheezing #180 mL albuterol sulfate 90 mcg/actuation 2 puff PO Q6H PRN shortness of 12/25/23 aerosol inhaler breath or wheezing 30 days #8.5 grams amoxicillin 875 mg-potassium 1 tab PO BID 14 days #28 tabs 12/25/23 clavulanate 125 mg tablet prednisone 10 mg tablet 20 mg (2 x 10 mg) PO DAILY 30 days 12/25/23 #60 tabs roflumilast 500 mcg tablet 500 mcg PO DAILY 30 days #30 tabs 12/25/23 (Daliresp) amoxicillin 875 mg-potassium 1 tab PO BID #14 tabs 02/15/24 clavulanate 125 mg tablet doxycycline hyclate 100 mg capsule 100 mg PO BID #14 caps 02/15/24 prednisone 20 mg tablet 40 mg (2 x 20 mg) PO DAILY #8 tabs 02/15/24 Allergies Allergy/AdvReac Type Severity Reaction Status Date / Time No Known Allergies Allergy Verified 02/15/24 13:22 [No Known Allergies*] Review of Systems 2 Review of Systems: Yes all other systems are reviewed and are negative Constitutional: Constitutional: Denies fatigue and Denies fever(s) Cardiovascular: Cardiovascular: Denies chest pain and Reports dyspnea Respiratory: Respiratory: Reports chest congestion, Reports cough, Reports dyspnea and Reports wheezing Gastrointestinal: Gastrointestinal: Denies abdominal pain, Denies nausea and Denies vomiting Musculoskeletal: Musculoskeletal: Reports back pain and Reports myalgias Endocrine: Endocrine: Denies fatigue Allergic/Immunologic: Allergic/Immunologic: Reports wheezing PMFSH Past Medical History Attestation statement: The following information was validated with the patient. Medical History (Updated 02/15/24 @ 20:23 by MARKEL Lyons) Personal history of nicotine dependence Osteopenia Bladder cancer (~2018) Hypertension Diabetes mellitus Asthma-COPD overlap syndrome JIMBO (obstructive sleep apnea) Nicotine dependence, cigarettes, uncomplicated Bilateral anterior knee pain Surgical History (Updated 12/15/23 @ 13:05 by Cass Vega PA-C) History of transurethral resection of bladder tumor (TURBT) History of esophagogastroduodenoscopy (EGD) History of colonoscopy Social History Social History (Updated 01/30/24 @ 11:13 by Cass Vega PA-C) Household Members: None Housing: Apartment 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) Patient Tobacco Use Status: Former Tobacco user Tobacco use type: Cigarette Years Smoked: (onset 15yr,s 1/2-1ppd x 50yrs, 35pyh, quit 2020) Smoked in Last 30 Days: Yes Use of substances other than those prescribed or required for medical reasons: No Advance Directives: No Advance Directives Information Provided: No service: No Current occupational status: retired and disabled 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 Physical Exam 2 Vital Signs: Vital Signs: Last Vital Signs Temp 98.0 F 02/15/24 19:26 Pulse 95 02/15/24 19:36 Resp 24 H 02/15/24 19:36 BP 108/51 L 02/15/24 19:26 Pulse Ox 95 02/15/24 19:26 O2 Del Method Room Air 02/15/24 19:26 BMI result Body Mass Index 30.1 Const: Other: Alert, overall well-appearing Orientation/consciousness: patient oriented x3 Resp: Other: Audible wheezes, diminished lung sounds, poor inspiratory effort, expiratory wheezes noted posterior bills Skin: Other: Warm dry no rash Neuro: General: patient oriented x3, no focal motor deficits and CN's II-XI intact bilaterally Psych: Other: Calm cooperative Course Course Course Narrative: This is a Rapid Medical Examination (RME) performed by Hi Camacho PA-C in triage. Full HPI, ROS, assessment and treatment plan per primary provider in the Main ED. 73 yo female hx of COPD/ asthma (not dependent on home o2), JIMBO, DM, HTN here for eval of SOB x2 weeks, neck pain x1 week, and chest pain beginning this morning. 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 regarding neck pain, she is unsure if she slept wrong however denies known injury/ trauma to the neck. no radiation of pain + audible wheezes, lungs w/ diminished BS, satting 100% on RA. +midline c spine tenderness Plan: labs, viral swabs, cxr, CT c spine Reevaluation(s) Reevaluation #1: sepsis identified, I just picked up the patient in the pad. Screening labs viral panel chest x-ray ordered, I am adding blood cultures, lactic acid, weight based IV fluid as she is hypotensive and tachycardic, we will start antibiotic therapy for bronchitis, ordering a breathing treatment with Solu-Medrol and magnesium. Time: 16:55 Reevaluation #2: Patient still requires another updraft Reevaluation #3: Patient has not significantly improving, I am going to admit, furthermore her lactate is now 3.4 when it was 2.1, I am also going to ambulate her to see if she drops her oxygen saturation. Her pressures are improved. Time: 20:23 Medications Administered Discontinued Medications Generic Name Dose Route Start Last Admin Trade Name Coleen PRN Reason Stop Dose Admin Albuterol Sulfate 2.5 mg/ 5 mg 02/15/24 13:41 02/15/24 13:44 Albuterol Sulfate 2.5 mg INHALE 02/15/24 13:42 5 mg ONCE ONE Administration Ceftriaxone Sodium 2 gm 02/15/24 16:48 02/15/24 17:21 Ceftriaxone Sodium 2 Gm Vial IVPUSH 02/15/24 16:49 2 gm ONCE ONE Administration Albuterol Sulfate 2.5 mg/ 0 mg 02/15/24 16:57 02/15/24 16:58 Albuterol/Ipratropium 3 ml INHALE 02/15/24 16:58 1 dose ONCE ONE Administration Albuterol Sulfate 2.5 mg/ 0 mg 02/15/24 19:32 02/15/24 19:35 Albuterol/Ipratropium 3 ml INHALE 02/15/24 19:33 1 dose ONCE ONE Administration Magnesium Sulfate 2 gm in 50 mls @ 25 mls/hr 02/15/24 16:48 02/15/24 19:25 Magnesium Sulfate/H2o IV 02/15/24 18:47 Infused ONCE ONE Infusion Azithromycin 500 mg/ Sodium 250 mls @ 125 mls/hr 02/15/24 16:48 02/15/24 19:25 Chloride IV 02/15/24 18:47 Infused ONCE ONE Infusion Sodium Chloride 1,890 mls @ 1,890 mls/hr 02/15/24 16:48 02/15/24 18:37 Ns 30 ml/kg infuse over 1 hr (1890 ml) 02/15/24 17:47 Infused IV Infusion .Q1H STA Ketorolac Tromethamine 15 mg 02/15/24 17:44 02/15/24 18:10 Ketorolac Tromethamine 15 Mg/Ml Vial IVPUSH 02/15/24 17:45 15 mg ONCE ONE Administration Methylprednisolone Sodium Succinate 125 mg 02/15/24 16:48 02/15/24 17:39 Methylprednisolone Sod Succ 125 Mg/2 Ml Vial IVPUSH 02/15/24 16:49 125 mg ONCE ONE Administration Medical Decision Making Medical Decision Making MDM Narrative: 73-year-old female with a history of asthma/COPD, ongoing tobacco abuse, diabetes, arthritis with chronic pain presents with shortness of breath. Patient's granddaughter indicates that her grandmother has been increasingly short of breath over the past 2 weeks, over the past few days her symptoms worsened. Associated chest tightness, cough that is productive at times with worsening wheezing. Patient becomes profoundly dyspneic with activity. Patient does not use oxygen at home. Unclear if the patient has had fevers at home. No active GI symptoms, no sick contacts with viral symptoms. Lastly, the patient complains myalgias, neck and back pain. No preceding injury, no weakness of upper extremities, lower extremities or paresthesia. Problem: COPD/asthma, tobacco abuse, diabetes, age History: Per patient's granddaughter I have considered the following differential diagnoses: Viral syndrome, COPD exacerbation, bronchitis, pneumonia, sepsis, ACS, cervical spine injury/arthritis/radiculopathy Plan: sepsis identified, I just picked up the patient in the pad. Screening labs viral panel chest x-ray ordered, I am adding blood cultures, lactic acid, weight based IV fluid as she is hypotensive and tachycardic, we will start antibiotic therapy for bronchitis, ordering a breathing treatment with Solu- Medrol and magnesium. ACS considered, she is complaining of chest tightness, troponin EKG ordered. Lastly, patient is complaining of body pain including neck and back, imaging of her cervical spine was ordered, she has had no trauma, she is not having any radicular symptoms. It is likely arthritic changes. I have independently reviewed the following tests: Labs: Leukocytosis, not anemic, no electrolyte abnormality, troponin negative, 1st lactate 2.1, the 2nd is 3.4 Chest x-ray:MPRESSION: 1. No acute findings. This document has been electronically signed by: Kindra Huff MD on 02/15/2024 14:22:01 CT cervical spine: Findings: Trace retrolisthesis of C3 on C4 and C5 on C6. Multilevel spondylosis. Left-sided facet osteoarthritis at C2-C3. No central canal stenosis. No acute fractures or dislocations. No acute findings on limited view of the intracranial contents. Soft tissues of the neck are normal. No consolidation or effusion at the lung apices. IMPRESSION: No acute findings. This document has been electronically signed by: Kindra Huff MD on 02/15/2024 14:39:40 EKG: Sinus tachycardia rate of 105, no ischemic changes no ectopy, QTC 454 Lab Data 02/15/24 13:29 02/15/24 13:29 Labs: Lab Results 02/15/24 02/15/24 02/15/24 Range/Units 13:29 17:19 19:35 WBC 11.1 H (4.8-10.8) X10*3/uL RBC 3.70 L (4.20-5.50) X10*6/uL Hgb 11.9 L (12.0-16.0) g/dl Hct 35.9 L (37.0-47.0) % MCV 97.0 (80.0-98.0) fL MCH 32.2 (27.0-33.0) pg MCHC 33.1 (31.0-35.0) g/dl RDW 12.3 (11.0-16.0) % Plt Count 352 (160-400) X10*3/uL MPV 9.2 L (9.4-12.3) fL Immature Gran % (Auto) 0.4 (0.0-0.4) % Neut % (Auto) 89.9 H (45-73) % Lymph % (Auto) 6.6 L (20-40) % [place] % (Auto) 2.4 (2-11) % Eos % (Auto) 0.5 (0-4) % Baso % (Auto) 0.2 (0-2) % Lymph # (Auto) 0.7 L (1.2-4.9) X10*3/uL [place] # (Auto) 0.3 (0.1-1.2) X10*3/uL Eos # (Auto) 0.1 (0.0-0.4) X10*3/uL Baso # (Auto) 0.0 (0.0-0.2) X10*3/uL Abs Immat Gran (auto) 0.04 H (0.00-0.03) X10*3/uL Absolute Neuts (auto) 10.0 H (2.0-8.3) x10*3/uL Absolute Nucleated RBC 0.000 (0.0-0.012) X10*3/uL Nucleated RBC % (auto) 0.0 (0.0-0.2) /100WBC Sodium 142 (135-145) mmol/L Potassium 4.2 (3.3-5.1) mmol/L Chloride 105 (96-108) mmol/L Carbon Dioxide 25 (22-29) mmol/L Anion Gap 16 (12-20) BUN 17 H (9-16) mg/dL Creatinine 1.10 (0.5-1.4) mg/dL Estim Creat Clear Calc 35.8 Estimated GFR 49 Random Glucose 146 H (60-115) mg/dL Lactic Acid 2.1 H* (0.5-2.0) mmol/L Lactic Acid F/U @ 2Hr 3.4 H* (0.5-2.0) mmol/L Calcium 10.3 H D (8.4-10.2) mg/dL Magnesium 1.7 (1.6-2.6) mg/dL Total Bilirubin 0.2 (0.0-1.0) mg/dL AST 22 (5-31) U/L ALT 17 (0-31) U/L Alkaline Phosphatase 57 (39-117) U/L Troponin I High Sens < 2.7 (<3.5-17.0) ng/L B-Natriuretic Peptide < 10 (<100) pg/mL Total Protein 7.3 (6.5-8.0) g/dL Albumin 4.4 (3.5-5.0) g/dL Influenza Type A (PCR) NEGATIVE (Negative) Influenza Type B (PCR) NEGATIVE (Negative) RSV RNA Qual (PCR) NEGATIVE (Negative) SARS-CoV-2 RNA (RT-PCR) NEGATIVE (Negative) Discharge Plan Discharge Clinical Impression: Asthma exacerbation in COPD, Sepsis Patient Disposition: Home, Self-Care Instructions: COPD (Chronic Obstructive Pulmonary Disease) (ED) Additional Instructions: You were offered admission for your COPD exacerbation, you declined. Use your home nebulizer as needed for your wheezing. Take the prednisone as directed, you had your 1st dose here in the emergency department you do not need anymore medication until tomorrow. Take the Augmentin as directed and the doxycycline as directed, these are both antibiotics. Follow up with your primary care provider as needed. Prescriptions: New amoxicillin-pot clavulanate 875-125 mg tablet 1 tab PO BID Qty: 14 0RF doxycycline hyclate 100 mg capsule 100 mg PO BID Qty: 14 0RF prednisone 20 mg tablet 40 mg PO DAILY Qty: 8 0RF No Action Dupixent Syringe 300 mg/2 mL syringe 300 mg subcut Q2W Qty: 4 11RF Trelegy Ellipta 200-62.5-25 mcg blister with device 1 inh INHALATION DAILY Qty: 60 2RF metformin 500 mg tablet 500 mg PO DAILY cyanocobalamin (vitamin B-12) 1,000 mcg tablet 1,000 mcg PO QPM linagliptin 5 mg tablet 5 mg PO DAILY cholecalciferol (vitamin D3) 50 mcg (2,000 unit) capsule 50 mcg PO DAILY fluticasone propionate 50 mcg/actuation spray,suspension 1 spray intranasal DAILY PRN (Reason: Allergy Symptoms) pantoprazole 40 mg tablet,delayed release (DR/EC) 40 mg PO DAILY aspirin 81 mg tablet,delayed release (DR/EC) 81 mg PO BEDTIME glipizide 10 mg tablet extended release 24hr 10 mg PO DAILY cetirizine 10 mg tablet 10 mg PO DAILY metformin 500 mg tablet 1,000 mg PO BEDTIME gabapentin 300 mg capsule 300 mg PO TID sertraline 100 mg tablet 150 mg PO DAILY buspirone 10 mg tablet 10 mg PO BID rosuvastatin 40 mg tablet 40 mg PO BEDTIME lisinopril-hydrochlorothiazide 20-12.5 mg tablet 1 tab PO DAILY (DME) nebulizers Misc See Rx Instructions .ROUTE Rx Instructions: As directed prednisone 10 mg tablet See Rx Instructions PO DAILY 14 Days Qty: 21 2RF Rx Instructions: PO daily; Take 2 tabs daily x 7 days, then 1 tab daily x 7 days. montelukast [Singulair] 10 mg tablet 10 mg PO BEDTIME 90 Days Qty: 90 3RF prednisone 10 mg tablet 20 mg PO DAILY 30 Days Qty: 60 3RF amoxicillin-pot clavulanate 875-125 mg tablet 1 tab PO BID 14 Days Qty: 28 0RF roflumilast [Daliresp] 500 mcg tablet 500 mcg PO DAILY 30 Days Qty: 30 11RF albuterol sulfate 90 mcg/actuation HFA aerosol inhaler 2 puff PO Q6H PRN (Reason: shortness of breath or wheezing) 30 Days Qty: 8.5 11RF albuterol sulfate 2.5 mg /3 mL (0.083 %) solution for nebulization 2.5 mg inhalation QID Qty: 180 0RF Print Language: Pashto
[2024-02-15 13:34] LABS: MANUAL DIFF FLAG NO
[2024-02-15 13:38] LABS: Basophils Percent Auto 0.2 % (0-2); Eosinophils Absolute Auto 0.1 X10*3/uL (0.0-0.4); Eosinophils Percent Auto 0.5 % (0-4); Hematocrit 35.9 % (37.0-47.0); Hemoglobin 11.9 g/dl (12.0-16.0); Imm Gran Abs Auto 0.04 X10*3/uL (0.00-0.03); Imm Gran Pct Auto 0.4 % (0.0-0.4); Lymphocytes Absolute Auto 0.7 X10*3/uL (1.2-4.9); Lymphocytes Percent Auto 6.6 % (20-40); Mean Corpuscular HGB Conc 33.1 g/dl (31.0-35.0); Mean Corpuscular Hemoglobin 32.2 pg (27.0-33.0); Mean Platelet Volume 9.2 fL (9.4-12.3); Monocytes Absolute Auto 0.3 X10*3/uL (0.1-1.2); Monocytes Percent Auto 2.4 % (2-11); Neutrophils Percent Auto 89.9 % (45-73); Platelet Count 352 X10*3/uL (160-400); Red Cell Distribution Width 12.3 % (11.0-16.0); White Blood Count 11.1 X10*3/uL (4.8-10.8)
[2024-02-15] MEDS: Albuterol Sulfate 2.5 MG, Albuterol Sulfate (0.083%) 2.5 MG 5 MG INHALE (13:44)
[2024-02-15 13:53] LABS: Alanine Aminotransferase 17 U/L (0-31); Albumin Level 4.4 g/dL (3.5-5.0); Alkaline Phosphatase 57 U/L (39-117); Anion Gap 16 (12-20); Aspartate Amino Transferase 22 U/L (5-31); Bilirubin Total 0.2 mg/dL (0.0-1.0); Blood Urea Nitrogen 17 mg/dL (9-16); Calcium 10.3 mg/dL (8.4-10.2); Carbon Dioxide 25 mmol/L (22-29); Chloride 105 mmol/L (96-108); Creatinine Clr Calc Pharmacy 35.8; Estimated Glomerular Filt Rate 49; Glucose Random 146 mg/dL (60-115); Magnesium 1.7 mg/dL (1.6-2.6); Potassium 4.2 mmol/L (3.3-5.1); Sodium 142 mmol/L (135-145); Total Protein 7.3 g/dL (6.5-8.0)
[2024-02-15 14:05] LABS: B Type Natriuretic Peptide < 10 pg/mL (<100)
[2024-02-15 14:10] LABS: Troponin-I High Sensitivity < 2.7 ng/L (<3.5-17.0)
[2024-02-15 14:20] LABS: Influenza A PCR NEGATIVE (Negative); Influenza B PCR NEGATIVE (Negative); Resp Syncy Virus RNA Qual PCR NEGATIVE (Negative); SARS COV2 PCR INHOUSE NEGATIVE (Negative)
[2024-02-15] MEDS: Albuterol Sulfate 2.5 MG, Albuterol/Iprat 2.5/0.5MG 3 ML 3 ML INHALE ×2 (16:58→19:35)
[2024-02-15] MEDS: SODIUM CHLORIDE 1890 ML IV (17:06)
[2024-02-15] MEDS: Magnesium Sulfate/H2O 2 GM/50 ML PIGGYBACK IV (17:14)
[2024-02-15] MEDS: cefTRIAXone sodium 2 GM VIAL IVPUSH (17:21)
[2024-02-15] MEDS: Azithromycin 500 MG in 0.9 % Sodium Chloride 250 ML 125 MG IV (17:21)
[2024-02-15] MEDS: methylPREDNISolone Sod Succ 125 MG/2 ML VIAL IVPUSH (17:39)
[2024-02-15 17:55] LABS: Lactic Acid 2.1 mmol/L (0.5-2.0)
[2024-02-15] MEDS: Ketorolac Tromethamine 15 MG/ML VIAL IVPUSH (18:10)
--- NOTE | 2024-02-15 18:18 | PC.NURSE ---
IVF infusing slowly d/t positional IV placement.
[2024-02-15 19:22] LABS: Reflex Lactate? Lactic Acid Added
--- NOTE | 2024-02-15 19:27 | PC.NURSE ---
assumed care of patient at this time,patient family at bedside. reporting no pain or SOB at this time
[2024-02-15 20:01] LABS: ~Lactic Acid-LAB USE ONLY 3.4 mmol/L (0.5-2.0)
--- NOTE | 2024-02-15 21:00 | PC.NURSE ---
this RN ambulated patient with o2 probe, oxygen stated at 96% RA patient reported no SOB
[2024-02-15 21:37] LABS: Reflex Lactate? 2 Y
== END 2024-02-15 21:34 | disposition home or self-care (01) ==
PROVIDERS: Physician Assistant Medical; Emergency Provider Internal Medicine
DX: J44.1 Chronic obstructive pulmonary disease with (acute) exacerbation (principal); R06.02 Shortness of breath; A41.9 Sepsis, unspecified organism; M54.2 Cervicalgia; R51.9 Headache, unspecified; F17.210 Nicotine dependence, cigarettes, uncomplicated; Z79.899 Other long term (current) drug therapy; Z03.818 Encounter for observation for suspected exposure to other biological agents ruled out
CPT/HCPCS: 0241U; 36415; 71046; 72125; 80053; 83605; 83735; 83880; 84484; 85025; 87040; 93005; 94640; 96365; 96366; 96367; 96375; 99285; J0456; J0696; J1885; J2919; J3475

== ENCOUNTER → 2024-02-15 13:19 | Outpatient (BNV) | payer OTHER, SELFPAY | PROVIDERS: Visit Provider Radiology Diagnostic Radiology | DX: M54.2 Cervicalgia (principal); R06.02 Shortness of breath | CPT/HCPCS: 71046; 72125 ==

== ENCOUNTER → 2024-02-15 13:19 | Outpatient (BNV) | payer OTHER, SELFPAY | PROVIDERS: Emergency Provider Internal Medicine; Visit Provider Internal Medicine Cardiovascular Disease | DX: R07.9 Chest pain, unspecified (principal) | CPT/HCPCS: 93010 ==

== ENCOUNTER 2024-02-23 13:10 | Outpatient (AMB) | payer OTHER, SELFPAY ==
--- NOTE | 2024-02-23 13:19 | A.OFFVIS_ITS ---
Intake Visit Reasons: history of bladder cancer Intake Note: New patient is present for History of Bladder Cancer Urology Med: None Antibiotic Allergies: None Blood Thinner: Aspirin Patient last seen Dr. 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 Stucco: Plasterer Stucco Present Accompanied by: Daughter Allergies No Known Allergies [No Known Allergies*] Allergy (Verified 02/23/24 13:31) Medication List - Last Reconciled 02/23/24 by Abran Hayes MD albuterol sulfate 90 mcg/actuation 2 puffs PO Q6H PRN 30 days albuterol sulfate 2.5 mg (3 mL) inhalation QID amoxicillin-pot clavulanate 875-125 mg 1 tab PO BID amoxicillin-pot clavulanate 875-125 mg 1 tab PO BID 14 days aspirin 81 mg PO BEDTIME buspirone 10 mg PO BID calcium carbonate 500 mg PO BID cetirizine 10 mg PO DAILY cholecalciferol (vitamin D3) 50 mcg PO DAILY cyanocobalamin (vitamin B-12) 1,000 mcg PO QPM dupilumab (Dupixent) 300 mg (2 mL) subcut Q2W fluticasone propionate 50 mcg/actuation 1 spray intranasal DAILY PRN sdcdcahvqyn-boqousxhj-xkzletpr 200-62.5-25 mcg (Trelegy Ellipta) 1 inh inhalation DAILY gabapentin 300 mg PO TID glipizide ER 10 mg PO DAILY lancets (TRUEplus Lancets) As directed linagliptin 5 mg PO DAILY lisinopril-hydrochlorothiazide 20-12.5 mg 1 tab PO DAILY metformin 500 mg PO DAILY metformin 1,000 mg PO BEDTIME montelukast (Singulair) 10 mg PO BEDTIME 90 days nebulizers As directed pantoprazole 40 mg PO DAILY prednisone 40 mg (2 x 20 mg) PO DAILY prednisone PO daily; Take 2 tabs daily x 7 days, then 1 tab daily x 7 days. 14 days prednisone 20 mg (2 x 10 mg) PO DAILY 30 days roflumilast (Daliresp) 500 mcg PO DAILY 30 days rosuvastatin 40 mg PO BEDTIME sertraline 150 mg PO DAILY HPI Comments Details: Carole is a 73-year-old past medical history diabetes history of nicotine use, was seen by Dr. Romeo Cazares III, in the past and diagnosed with bladder cancer review of her chart notes a pathology from 08/18/2018 left lateral wall resected tissue papillary urothelial carcinoma low-grade foci of high-grade noninvasive, muscularis propria present in specimen. She complains of seeing blood in the urine and burning with urination. Urine cytology 09/02/22--few atypical urothelial cells. Comorbidity nicotine use. [facility] Medical History Personal history of nicotine dependence Osteopenia Bladder cancer (~2018) Hypertension Diabetes mellitus Asthma-COPD overlap syndrome JIMBO (obstructive sleep apnea) Nicotine dependence, cigarettes, uncomplicated Bilateral anterior knee pain Surgical History History of transurethral resection of bladder tumor (TURBT) History of esophagogastroduodenoscopy (EGD) History of colonoscopy Social History Household Members: None Housing: Apartment Do you presently have visiting nurse or other home services: Yes ([facility]) Patient Tobacco Use Status: Former Tobacco user Tobacco use type: Cigarette Years Smoked: (onset 15yr,s 1/2-1ppd x 50yrs, 35pyh, quit 2020) service: No Current occupational status: retired and disabled 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 Review of Systems Const All systems reviewed & are unremarkable except as noted in HPI and below Reports no additional complaints Eyes Reports no additional complaints ENT Reports no additional complaints Card Reports no additional complaints Resp Reports no additional complaints GI Reports no additional complaints Reports as per HPI Musc Reports no additional complaints Skin/Breast Reports system reviewed and no additional complaints, except as documented Neuro Reports no additional complaints Psych Reports no additional complaints Endo Reports no additional complaints Kiran/Lymph Reports no additional complaints Aller/Immun Reports no additional complaints Physical Exam Const General: cooperative, healthy appearing and no acute distress Orientation/consciousness: patient oriented x3 HEENT Head: Yes normal to inspection, Yes normocephalic and Yes atraumatic Eyes Conjunctivae: conjunctivae normal Neck Neck: Yes normal visual inspection and Yes trachea midline Chest Chest palpation & inspection: normal inspection of the chest Resp Effort & Inspection: normal respiratory effort Cardio Rate: regular rate GI Inspection: Yes normal to inspection Neuro General: patient oriented x3 Psych Appearance: grossly normal Results AMB Urinalysis, Automated UA Leukoctes 0 Sedrick/uL Last Edit by Frida Khan, A on 02/23/24 13:33 UA Nitrite Negative Last Edit by Frida Khan, A on 02/23/24 13:33 UA Urobilinogen 0.2 mg/dL Last Edit by Frida Khan, A on 02/23/24 13:3 3 UA Protein 15 mg/dL Last Edit by Frida Khan, A on 02/23/24 13:33 UA pH 5.5 Last Edit by Frida Khan, RMA on 02/23/24 13:33 UA Blood 0 Herman/uL Last Edit by Frida Khan, A on 02/23/24 13:33 UA Specific [place] 1.025 Last Edit by Frida Khan, A on 02/23/24 13: 33 UA Ketone Negative Last Edit by Frida Khan, A on 02/23/24 13:33 UA Bilirubin 0 mg/dL Last Edit by Frida Khan, A on 02/23/24 13:33 UA Glucose 1000 mg/dL Last Edit by Frida Khan, A on 02/23/24 13:33 Results Reviewed Results Reviewed: Laboratory Last Values Urine pH (Auto) 5.5 02/23/24 13:29 Specific [place] (Auto) 1.025 02/23/24 13:29 Urine Protein (Auto) 15 mg/dL 02/23/24 13:29 Glucose (UA)(Auto) 1000 mg/dL 02/23/24 13:29 Urine Ketones (Auto) Negative 02/23/24 13:29 Urine Blood (Auto) 0 Herman/uL 02/23/24 13:29 Urine Nitrite (Auto) Negative 02/23/24 13:29 Urine Bilirubin (Auto) 0 mg/dL 02/23/24 13:29 Urine Urobilinogen (Auto) 0.2 mg/dL 02/23/24 13:29 Leukocyte Esterase (Auto) 0 Sedrick/uL 02/23/24 13:29 Urine cytology- Collected: 08/30/22 Location: [facility] Received: 09/02/22 Diagnosis Urine: Few atypical urothelial cells. COMMENT: Examination of monolayer preparation slide shows many benign squamous cells with bacteria, occasional benign urothelial cells, and few irregular atypical urothelial cells with increased nuclear:cytoplasmic ratios. There are occasional inflammatory cells and few red blood cells present. Clinical History Diabetes, hypertension Material Received Urine Gross Description 50 cc cloudy yellow fluid Assessment & Plan Assessment & Plan (1) Personal history of nicotine dependence: Comment: (onset 15yr,s 1/2-1ppd x 50yrs, 35pyh, quit 2020) Code(s): Z87.891 - Personal history of nicotine dependence Category: Medical (2) History of bladder cancer: Code(s): Z85.51 - Personal history of malignant neoplasm of bladder Category: Medical (3) Gross hematuria: Code(s): R31.0 - Gross hematuria Category: Medical (4) Dysuria: Code(s): R30.0 - Dysuria Category: Medical (5) Abnormal urine cytology: Code(s): R82.89 - Other abnormal findings on cytological and histological examination of urine Category: Medical Plan Urine for cytology. CT urogram follow-up office cystoscopy Orders: Orders Urine Cytology Today Z85.51 - Personal history of malignant neoplasm of bladder Urine Culture Today N39.0 - Urinary tract infection, site not specified, R30.0 - Dysuria AMB Urinalysis Automated Today Z13.9 - Encounter for screening, unspecified CT urogram Today R31.0 - Gross hematuria, R82.89 - Other abnormal findings on cytological and histological examination of urine, Z85.51 - Personal history of malignant neoplasm of bladder Coding Level of Care Code New Pt Level 4 (87553) Diagnoses Personal history of nicotine dependence Z87.891 History of bladder cancer Z85.51 Gross hematuria R31.0 Dysuria R30.0 Abnormal urine cytology R82.89
== END 2024-02-23 13:56 | disposition home or self-care (01) ==
PROVIDERS: PCP Student in an Organized Health Care Education/Training Program; Visit Provider Urology
DX: Z87.891 Personal history of nicotine dependence (principal); Z85.51 Personal history of malignant neoplasm of bladder; R31.0 Gross hematuria; R30.0 Dysuria; R82.89 Other abnormal findings on cytological and histological examination of urine; Z13.9 Encounter for screening, unspecified
CPT/HCPCS: 99204

== ENCOUNTER 2024-02-23 13:10 | Outpatient (REF) | payer OTHER, SELFPAY | END 2024-02-23 13:11 | disposition home or self-care (01) | LOC: HO.LAB 13:10 | PROVIDERS: PCP Student in an Organized Health Care Education/Training Program; Visit Provider Urology | DX: Z87.891 Personal history of nicotine dependence (principal) | CPT/HCPCS: 81003; 99202 ==

== ENCOUNTER 2024-02-23 14:15 | Outpatient (REF) | payer OTHER, SELFPAY ==
[2024-02-23 16:49] LABS: Urine Cytology See Pathology rpt
== END 2024-02-23 14:16 | disposition home or self-care (01) ==
LOC: HO.LAB 14:15
PROVIDERS: PCP Student in an Organized Health Care Education/Training Program; Visit Provider Urology
DX: Z85.51 Personal history of malignant neoplasm of bladder (principal)
CPT/HCPCS: 81003; 88112; 99202

== ENCOUNTER 2024-02-24 15:53 | Outpatient (REF) | payer OTHER, SELFPAY | END 2024-02-24 15:54 | disposition home or self-care (01) | LOC: HO.LNP 15:53 | PROVIDERS: Visit Provider Urology | DX: N39.0 Urinary tract infection, site not specified (principal); R30.0 Dysuria | CPT/HCPCS: 87086 ==

== ENCOUNTER 2024-04-09 14:20 | Outpatient (AMB) | payer OTHER, SELFPAY ==
[2024-04-09 14:23] VITALS: BP 118/56; PULSE 104; O2SAT 95; BMI 29.8
--- NOTE | 2024-04-09 14:23 | A.OFFVIS_ITS ---
Vital Signs 04/09/24 14:23 Height 4 ft 11 in Weight 147 lb 11.355 oz BMI 29.8 BP 118/56 L Blood Pressure Location Rt brachial Position Sitting Pulse 104 H Pulse Source Pulse Oximeter Pulse Oximetry (%) 95 Oxygen Delivery Method Room Air Intake Visit Reasons: copd Allergies No Known Allergies [No Known Allergies*] Allergy (Verified 02/23/24 13:31) HPI Comments Details: The patient is a 73-year-old woman known COPD in addition to obstructive sleep apnea. Apparently she has had multiple sleep studies in the past going back to 2010. She has had issues with hypoxia at nighttime. She has daytime drowsiness and does have headaches in the morning. Moderate severity. Her Arabi score is elevated. Her last CPAP study was back in 2018 which she did have mild sleep apnea. The patient has become more symptomatic and she does carry cardiovascular risks so this point will repeat her study. I'm hoping home sleep study will be sufficient. In the meantime the patient continues to have shortness of breath she does use inhalers at home but is very confusing for her to know which 1 she is supposed to be using. I do think that we need to optimize respiratory therapy and improve her adherence and we can do this with trelegy. The patient has not had any recent pulmonary function study. She also has nasal congestion. She has had epistaxis. 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 She does use allergy medicines but still has significant congestion. Moderate severity. Complains of a postnasal drip and cough. We will try Astelin nasal spray. 10/27/2020 the patient is here for a pulmonary follow-up visit. She has had been having worsening respiratory symptoms. Has significant wheezing and chest congestion and cough. She has been like this now for few weeks. Seems to be getting worse. She had to stop the Daliresp as it was not helping. She also tried multiple numerous inhalers that have not been helpful. The only beneficial 1 was Bevespi. Will try her on Breztri at this at this time. In the meantime she continues to have significant daytime drowsiness. We did have her undergo a in-lab study. Her AHI was up to 30 consistent with severe sleep apnea. Patient needs to start CPAP therapy at this time. Will make arrangements with local [employer] company to start the therapy. In the meantime we did review her blood work demonstrating significant eosinophilia and also significant elevations in the IgE consistent with allergic asthma. The patient has required maximize respiratory therapy with partial resolution her symptoms and frequent prednisone. The patient is a great candidate for biologic therapy. She had been on Xolair in the past and that appear to be effective for her. I do believe that she brought will respond better to Dupixent at this time. 10/12/2021 The patient is here for a pulmonary follow up visit. She continues to struggle with her asthma. Developed worsening wheezing and productive cough. Prior to this she was doing well for several months. Unfortunately, she is grieving the of her daughter. Could not start the Daliresp. She was started on Dupixent and she feels that is working. We will continue to monitor her progress. If she continues to require prednisone then we could consider switching to Tezspire. 02/25/2022 the patient is here for a pulmonary follow-up visit. She is having worsening respiratory symptoms. Complaining of chest tightness and wheezing. Moderate severity. She was responding very well to the Dupixent. She was no longer requiring prednisone. Her respiratory symptoms were much improved. However for some reason she has not able to get the injections anymore. Will look into it further. Hoping for her to continue biologic therapy. The meantime she does have significant wheezing and will start her on prednisone. She also get her CPAP. The CPAP therapy will be affecting beneficial. Although still not adjusted for her. She is having issues because is having too much water draining to her mask. I also see that she is using a nasal pillow mask. This is that appear to be effective for her. Therefore I did provide her with an F20 fullface mask. We continue with the APAP at the current settings but I brought the humidity down to 1. I am hopeful that she can tolerated better. She will bring in the next few months in order to make sure that she is doing better with. She is aware that she needs to use it at least 4 hours a day. 04/25/2023 the patient is here for sick visit. She has had worsening respiratory symptoms for the last week. She is feeling that she is getting worse. Significant chest tightness and some wheezing. Moderate severity. Unfortunately her nebulizer tubing broken she has not been able to use it. She does have a Trelegy inhaler she has been using also her rescue inhaler. These therapies only been partially helpful. And only for short period of time. The patient has been struggling with significant wheezing. During the last visit she did require prednisone. Prior to that she had been on biologic therapies which have been very helpful. At this time will provide her with a nebulizer treatment in the office. After the treatment she was able to improves therefore will send her additional prednisone and antibiotics in the pharmacy. Patient also took the tubing were her to use her nebulizer home to to 4 times a day. If the patient is no better she will call the office for an earlier assessment. Although I so follow-up in 4-6 months. 10/27/2023 the patient is here for a pulmonary follow-up visit. She continues to struggle with breathing. Significant wheezing and chest congestion. Moderate to severe. She had been on multiple courses of prednisone. She was approved to restart her Dupixent but she did not get the prescription filled as of yet. I did walk the family to the pharmacy and she was able to pick it up. Therefore she can start as soon as possible. In the meantime she does have significant wheezing on examination and she must be treated for an asthma exacerbation at this time. She also has chronic bronchitis. Therefore will start azithromycin 3 times a week for chronic bronchitis treatment. She will need to get an EKG however. She will continue with the current respiratory therapy including Trelegy. The patient is also a former smoker. She Only quit this year. She has smoked for more than 40 years. She does have a greater than 30 pack-year history of smoking so therefore will go ahead and refer her to the lung cancer screening program at this time. 12/25/2023 the patient is here for a pulmonary follow-up visit. She is struggling with breathing again. She did get the Dupixent the last time but then she did not get it mailed to her house so she was not taking it regularly. She continues use her respiratory therapy with partial improvement. She also was using the azithromycin 3 times a week without any significant improvement. Therefore she can stop that and will going to send her different antibiotic to the pharmacy. The patient is going to require Solu-Medrol today she has significant wheezing. And she needs to continue the Dupixent every 2 weeks more coherently. When she returns in 6-8 weeks will reassess. If she continues to have difficulties will switch over her biologic to a different agent. Will go ahead have her get an x-ray today. Consider bronchoscopy to better address the airways further if she does not getting any improvement. 04/09/2024 the patient is here for a pulmonary follow-up visit. She is having hard time breathing for the last couple weeks. She has been having hard time sleeping because of the shortness of breath. Moderate to severe. She has been using her Dupixent injections every 2 weeks. For some reason she ran out of her inhalers. Will go ahead and send him off to the pharmacy again. But at this point the patient is requiring Solu-Medrol prednisone every visit. Therefore the Dupixent is not helping her. Will go ahead and switch over to test prior at this time. In the meantime she will receive Solu-Medrol today for the significant wheezing and will start a course of antibiotics and prednisone. If the patient is to worsen she needs to go to the ER. We also did look at her CT scan of the chest which was personally by me. She had as far as the lung cancer screening program. Everything stable. [facility] Medical History Personal history of nicotine dependence Osteopenia Bladder cancer (~2018) Hypertension Diabetes mellitus Asthma-COPD overlap syndrome JIMBO (obstructive sleep apnea) Nicotine dependence, cigarettes, uncomplicated Bilateral anterior knee pain Surgical History History of transurethral resection of bladder tumor (TURBT) History of esophagogastroduodenoscopy (EGD) History of colonoscopy Social History Household Members: None Housing: Apartment Do you presently have visiting nurse or other home services: Yes ([employer]) Patient Tobacco Use Status: Former Tobacco user Tobacco use type: Cigarette Years Smoked: (onset 15yr,s 1/2-1ppd x 50yrs, 35pyh, quit 2020) service: No Current occupational status: retired and disabled 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 Review of Systems Const Denies night sweats ENT Denies change in voice, Denies lip swelling, Denies mouth pain, Reports nasal congestion, Reports nasal discharge and Denies tongue swelling Card Denies chest pain and Reports dyspnea on exertion Resp Reports chest congestion, Reports cough, Denies hemoptysis, Reports dyspnea on exertion and Reports wheezing GI Denies abdominal pain Musc Denies no additional complaints Neuro Denies Neuro-related abnormal movements Psych Denies no additional complaints Kiran/Lymph Denies easy bleeding and Denies lymphadenopathy Aller/Immun Denies lip swelling, Denies tongue swelling and Reports wheezing Physical Exam Vital Signs: Last Vital Signs Pulse 104 H 04/09/24 14:23 BP 118/56 L 04/09/24 14:23 Pulse Ox 95 04/09/24 14:23 Oxygen Delivery Method Room Air 04/09/24 14:23 BMI result Body Mass Index 29.8 Const General: alert Neck Neck: Yes normal visual inspection, Yes full ROM and Yes no lymphadenopathy Chest Chest palpation & inspection: normal inspection of the chest Resp Effort & Inspection: prolonged expiratory phase Auscultation: wheezes and diminished lung sounds Cardio Rate: regular rate Rhythm: regular rhythm Heart sounds: S1 normal heart sound present and S2 normal heart sound present GI Palpation (GI): Soft to palpation and nontender Auscultation: normal bowel sounds Skin General skin exam: rashes and/or lesions noted Office Meds methylprednisolone sod suc(PF) 125 mg/2 mL solution for injection Performing Provider: Bry Morales MD Performing Location: [facility] Administered by: Florencia Bernal LPN on 04/09/24 15:00 Dose Route Admin Location Dispensed Lot Number Expiration Date ND Bundle Sorter 125 mg IM R buttock 2 ea [id number] 02/16/26 7042-0337-41 [employer] [place] [employer] Comments: total dose given 125mg/2ml Assessment & Plan Assessment & Plan (1) Asthma: Code(s): J45.909 - Unspecified asthma, uncomplicated Category: Medical Qualifiers: Asthma complication type: with acute exacerbation Asthma persistence: persistent Asthma severity: severe Qualified Code(s): J45.51 - Severe persistent asthma with (acute) exacerbation (2) Asthma-COPD overlap syndrome: Code(s): J44.9 - Chronic obstructive pulmonary disease, unspecified Category: Medical (3) JIMBO (obstructive sleep apnea): Code(s): G47.33 - Obstructive sleep apnea (adult) (pediatric) Category: Medical Plan Solumedrol IM x 1 start prednisone taper, will stay on 10mg daily stop azithromycin MWF Nebulizer with albuterol 2-4 times aday continue Trelegy 200mcg JULIO as needed Continue Claritin/astelin/Singulair Continue Fluticasone NS continue APAP, provided her a med F20 mask Failed Dupixent, change to Tezspire bloodwork F/U 2 months Orders: Orders AMB Methylprednisolone Sod Succ Injection 04/09/24 J44.9 - Chronic obstructive pulmonary disease, unspecified Medications: New ipratropium-albuterol 0.5 mg-3 mg(2.5 mg base)/3 mL 3 mL inhalation QID 360 mL 11RF 30 days J44.9 - Chronic obstructive pulmonary disease, unspecified prednisone PO daily; Take 6 tabs daily x 3 days, then 5 tabs x 3 days, then 4 tabs x 3 days, then 3 tabs x 3 days, then 2 tabs daily x 3 days, then 1 tab x 3 days to complete. 63 tabs 0RF 18 days doxycycline monohydrate 100 mg PO BID 28 tabs 0RF 14 days Refilled albuterol sulfate 90 mcg/actuation 2 puffs PO Q6H PRN 8.5 grams 11RF shortness of breath or wheezing 30 days xarsamepxcl-tohaqaery-nzpgrxlu 200-62.5-25 mcg (Trelegy Ellipta) 1 inh inhalation DAILY 60 ea 2RF Coding Level of Care Code Est Pt Level 4 (20741) Complex EM visit Add On G2211 Diagnoses Severe persistent asthma with acute exacerbation J45.51 Asthma complication type: with acute exacerbation Asthma persistence: persistent Asthma severity: severe Asthma-COPD overlap syndrome J44.9 JIMBO (obstructive sleep apnea) G47.33 Comment 17
--- OUTSIDE RECORDS SUMMARY | 2024-04-09 14:44 | XMS_ITS | Encounter Summary ---
Author Organization [employer] Address [address] [place] [address] Care Team Providers Care Auger Machine Offbearer Name Role Phone Claudette Lorenzo Primary Care Provider [phone] Flower High MD Primary Care Pro vider Encounter Details Date Type Department Care Team (Late Contact Info) Description 05/06/2022 Orders Only [facility] MEDICINE [address] [place] [address] Karlene Dow LPN Social History Tobacco Use Types Packs/Day Years Used Date Smoking Tobacco: Never Assessed Comments Unknown Sex and Gender Information Value Date Recorded Sex Assigned at Female 12/17/2021 10:14 AM EDT Legal Sex Female 10:14 AM EDT Gender Identity Female 12/17/2021 10:14 AM EDT Sexual Orientation Straight 12/17/2021 10 :14 AM EDT documented as of this encounter Plan of Treatment Upcoming Encounters Date Type Department Care Team (Late st Contact Info) Description 04/26/2024 3:00 PM EDT Office Visit [facility] OPTOMETRY [address] [place] [address] Mabel Fraire, OD [address] [place] [address] documented as of this encounter Visit Diagnoses Not on filedocumented in this encounter Care Teams Auger Machine Offbearer Relationship Specialty Start Date End Date Claudette Lorenzo FNP [address] [place] [address] PCP - General Family Medicine 10/11/21 07/18/22 Flower High MD [address] [place] [id number] PCP - General Internal Medicine 07/19/22 documented as of this encounter
--- OUTSIDE RECORDS SUMMARY | 2024-04-09 14:44 | XMS_ITS | Encounter Summary ---
Author Organization [employer] Address [address] [place] [address] Care Team Providers Care Butcher Apprentice Name Role Phone Flower High MD Primary Care Pro vider Reason for Visit * Reason Comments Med Refill Encounter Details Date Type Department Care Team ([facility] st Contact Info) Description 04/04/2024 Refill [facility] MEDICINE [address] [place] [address] Flower High MD [address] [place], [place] [phone] Social History Tobacco Use Types Packs/Day Years Used Date Smoking Tobacco: Former Cigarettes Smokeless Tobacco: Never Comments:Started at 20 y of age until 40 y of age - 2 cigarettes a day-smoked x 20 years PQT year prateek 2 Alcohol Use Standard Drinks/Week Comments Yes 0 (1 standard drink = 0.6 oz pur e alcohol) social Depression Answer Date Recorded Patient Health Questionnaire-9 Score 20 12/17/2023 Patient Health Questionnaire-9 Score 20 12/17/2023 Last PHQ-9: Questionnaire Data Not on file 1 Housing Stability Answer Date Recorded What is your housing situation today? I have tomaspedro ashley 12/17/[address] you li ve. Do you have problems with any of the following? No or not working smoke detectors 12/17/2023 Food Insecurity Answer Date Recorded Within the past 12 months, y ou worried that your food would run out before you got money to buy more: Never True 12/17/2023 Within the past 12 months,th e food you bought just didn't last and you didn't have enough money to get more: Never True Transportation Answer Date Recorded In the past 12 months, has l ack of transportation kept you from medical appts, meetings, work or from getting things needed for daily living? No 12/17/2023 Utilities Answer Date Recorded In the past 12 months, has t he electric, gas, oil or water company threatened to shut off services in your home? No 12/17/2023 Depression Answer Date Recorded Patient Health Questionnaire-2 Score 6 12/17/2023 Internet Access Answer Date Recorded Internet Access Q1 Yes 12/17/2023 Internet Access Q2 Not on file 12/17/2023 Comments Unknown Sex and Gender Information Value [...] Description 04/26/2024 3:00 PM EDT Office Visit [facility] OPTOMETRY [address] [place], [place] [phone] Mabel Fraire, OD [address] [place] [address] documented as of this encounter Visit Diagnoses Not on filedocumented in this encounter Additional Health Concerns Assessment Noted Time PHQ-9 Depression Total Score: 20 024 8:46 AM EDT documented as of this encounter Care Teams Butcher Apprentice Relationship Specialty Start Date End Date Flower High MD [address] [place], [place] [phone] PCP - General Internal Medicine 07/19/22 documented as of this encounter
--- OUTSIDE RECORDS SUMMARY | 2024-04-09 14:44 | XMS_ITS | Encounter Summary ---
Author Organization [employer] Address [address] [place] [address] Care Team Providers Care Farmworker Livestock Name Role Phone Flower High MD Primary Care Pro vider Reason for Visit * Reason Comments Dental Exam comp Encounter Details Date Type Department Care Team ([facility] st Contact Info) Description 04/17/2023 10:30 AM EST Office Visit [facility] [address] [place] [address] Pool Mathew, DMD [address] [place], [place] [phone] Social History Tobacco Use Types Packs/Day Years Used Date Smoking Tobacco: Former Cigarettes Smokeless Tobacco: Never Comments:Started at 20 y of age until 40 y of age - 2 cigarettes a day-smoked x 20 years PQT year prateek 2 Alcohol Use Standard Drinks/Week Comments Not Currently 0 (1 standard drink = 0.6 oz pur e alcohol) Depression Answer Date Recorded Patient Health Questionnaire-9 Score 20 12/17/2023 Patient Health Questionnaire-9 Score 20 12/17/2023 Last PHQ-9: Questionnaire Data Not on file 1 Housing Stability Answer Date Recorded What is your housing situation today? I have tomas ashley 12/17/[address] you [...] AM EDT documented as of this encounter Progress Notes * Pool Mathew DMD - 04/17/2023 10:30 AM EST C/C: need a new F/F because she lost the F/F long time ago I.O.E: full upper and lower edentulous, missing F/F E.O.E: wnl Radiographic: full upper and lower edentulous Dx: full upper and lower edentulous, missing F/F Tx: new F/F Impression is being taken for F/F NV: Final impression and bite registration of F/F Magdalene documented in this encounter Plan of Treatment Upcoming Encounters Date Type Department Care Team (Late st Contact Info) Description 04/26/2024 3:00 PM EDT Office Visit [facility] OPTOMETRY [address] [place], [place] [phone] Juno, Mabel, OD [address] [place] [address] Scheduled Orders Name Type Priority Associated Diagnoses Orde r Schedule Max Max COMPLETE DENTURE - MAXILLARY Dental Routine [address] arting 04/17/2023 [place] COMPLETE DENTURE - MANDIBULAR Dental Routine 1 Occurrenc es starting 04/17/2023 documented as of this encounter Procedures Procedure Name Priority Date/Time Associated Diagnosis Comments PERIODIC ORAL EVALUATION - ESTABLISHED PATIENT Routine 04/17/2023 10:30 AM EST PANORAMIC RADIOGRAPHIC IMAGE Routine 04/17/2023 10:30 AM EST CASE PRESENTATION, DETAILED AND EXTENSIVE TREATMENT PLANNING Routine 04/17/2023 10:30 AM EST documented in this encounter Visit Diagnoses Not on filedocumented in this encounter Additional Health Concerns Assessment Noted Time PHQ-9 Depression Total Score: 0 01/07/20 1:19 PM EST documented as of this encounter Care Teams Farmworker Livestock Relationship Specialty Start Date End Date Flower High MD [address] [place] [id number] PCP - General Internal Medicine 07/19/22 documented as of this encounter
--- OUTSIDE RECORDS SUMMARY | 2024-04-09 14:44 | XMS_ITS | Encounter Summary ---
Author Organization [employer] Address [address] [place] [address] Care Team Providers Care Stock Roller Name Role Phone Flower High MD Primary Care Pro vider Encounter Details Date Type Department Care Team (Late st Contact Info) Description 03/05/2023 Orders Only [facility] [address] [place], [place] [phone] Flower High MD [address] [place] [address] Social History Tobacco Use Types Packs/Day Years [...] Answer Date Recorded Patient Health Questionnaire-9 Score 0 01/06/2023 Patient Health Questionnaire-9 Score 0 01/06/2023 Last PHQ-9: Questionnaire Data Not on file 1 03/08/2022 Housing Stability Answer Date Recorded What is your housing situation today? I have tomas ashley 12/04/[address] you li ve. Do you have problems with any of the following? None of the above 12/04/2022 Food Insecurity Answer Date Recorded Within the past 12 months, y ou worried that your food would run out before you got money to buy more: Never True 12/04/2022 Within the past 12 months,th e food you bought just didn't last and you didn't have enough money to get more: Never True Transportation Answer Date Recorded In the past 12 months, has l ack of transportation kept you from medical appts, meetings, work or from getting things needed for daily living? No 12/04/2022 Utilities Answer Date Recorded In the past 12 months, has t he electric, gas, oil or water company threatened to shut off services in your home? No 12/04/2022 Depression Answer Date Recorded Patient Health Questionnaire-2 Score 0 01/06/2023 Comments Unknown Sex and Gender Information Value [...] EDT Office Visit [facility] OPTOMETRY [address] [place] [address] Juno, Mabel, OD [address] [place] [address] documented as of this encounter Visit Diagnoses Not on filedocumented in this encounter Additional Health Concerns Assessment Noted Time PHQ-9 Depression Total Score: 0 01/07/20 23 1:19 PM EST documented as of this encounter Care Teams Stock Roller Relationship Specialty Start Date End Date Flower High MD [address] [place] [address] PCP - General Internal Medicine 07/19/22 documented as of this encounter
--- OUTSIDE RECORDS SUMMARY | 2024-04-09 14:44 | XMS_ITS | Encounter Summary ---
Author Organization [employer] Address [address] [place] [address] Care Team Providers Care Photocopying Equipment Repairer Name Role Phone Flower High MD Primary Care Pro vider Reason for Visit * Reason Onset Date Comments Med Refill No Show 09/17/2022 Encounter Details Date Type Department Care Team (Late st Contact Info) Description 09/17/2022 Refill [facility] MEDICINE [address] [place] [address] Claudette Lorenzo, TALLOW MAKER [address] [place] [address] Allergic rhinitis, unspecified seasonality, unspecified trigger Social History Tobacco Use Types Packs/Day Years Used Date Smoking Tobacco: Former Cigarettes Smokeless Tobacco: Never Comments:Started at 20 y of age until 40 y of age - 2 cigarettes a day-smoked x 20 years PQT year prateek 2 Alcohol Use Standard Drinks/Week Comments Not Currently 0 (1 standard drink = 0.6 oz pur e alcohol) Comments Unknown Sex and Gender Information Value Date Recorded Sex Assigned at Female 12/17/2021 10:14 AM EDT Legal Sex Female 10:14 AM EDT Gender Identity Female 12/17/2021 10:14 AM EDT Sexual Orientation Straight 12/17/2021 10 :14 AM EDT COVID-19 Exposure Response Date Recorded In the last 10 days, have yo u been in contact with someone who was confirmed or suspected to have Coronavirus/COVID-19? No / Unsure 08/19/2022 2:02 PM EDT documented as of this encounter Miscellaneous Notes * Telephone Encounter - Flower Miranda MD - 09/17/2022 5:37 PM EDT Not rec for pt chronic steroid nasal use -I already explained pt documented in this encounter Plan of Treatment Upcoming Encounters Date Type Department Care Team (Late st Contact Info) Description 04/26/2024 3:00 PM EDT Office Visit [facility] OPTOMETRY [address] [place] [address] Mabel Fraire, OD [address] [place] [address] documented as of this encounter Visit Diagnoses Diagnosis Allergic rhinitis, unspecified seasonality, unspecified trigger documented in this encounter Care Teams Photocopying Equipment Repairer Relationship Specialty Start Date End Date Flower High MD [address] [place] [address] PCP - General Internal Medicine 07/19/22 documented as of this encounter
--- OUTSIDE RECORDS SUMMARY | 2024-04-09 14:44 | XMS_ITS | Clinical Summary ---
Author Organization [employer] Address [address] [place] [address] Care Team Providers Care Water Filter Cleaner Name Role Phone Flower High MD Primary Care Pro vider Allergies Active Allergy Reactions Criticality Noted Date Comments Tramadol 10/11/2020 Other reaction(s): GI Problems, Nightmares Medications busPIRone (Buspar) 10 MG tablet 023 Active Dupixent 300 MG/2ML solution prefilled syringe injection 023 Active sertraline (Zoloft) 100 MG tablet 023 Active LORazepam (Ativan) 0.5 MG tablet Take 1 tablet by mouth every 8 (eight) hours. By psychiatry 022 Active Diclofenac Sodium 1 % gel Apply 1 tablet topically at noon and 1 tablet in the evening. Apply over left shoulder. 50 g 023 Active albuterol (2.5 MG/3ML) 0.083% nebulizer solution Take 3 mL by nebulization every 8 (eight) hours if needed for wheezing. 75 mL 1 023 Active acetaminophen (Tylenol) 500 MG tablet Take 2 tablets (1,000 mg) by mouth every 6 (six) hours if needed for moderate pain or fever for up to 25 doses. 30 tablet 023 Active ketorolac (Acular) 0.5 % ophthalmic solution INSTILL 1 DROP INTO THE AFFECTED EYE(S) THREE TIMES DAILY DIRECTED. START 2 DAYS BEFORE SURGERY AND TAPER DIRECTED 023 Active albuterol 1.25 MG/3ML nebulizer solutionIndicati ons:COPD with acute exacerbation ([facility]) Take 3 mL (1.25 mg) by nebulization every 6 (six) hours if needed for wheezing. 75 mL 3 024 Active Alcohol Swabs (Alcohol Prep) 70 % pads USE THREE TIMES DAILY DIRECTED 100 each 11 Active Blood Glucose Monitoring Suppl (FreeStyle [place] Lite) w/Device kitIndications:T ype 2 diabetes mellitus without complication, with long-term current use of insulin ([facility]) Use to test blood sugar bid dx dm 1 kit Active montelukast (Singulair) 10 MG tablet TAKE 1 TABLET BY MOUTH EVERY EVENING 90 tablet 1 Active cholecalciferol (D3 Super Strength) 50 MCG (1999 UT) capsule TAKE 1 CAPSULE BY MOUTH EVERY MORNING 90 capsule 1 Active cetirizine (ZyrTEC) 10 MG tablet TAKE 1 TABLET BY MOUTH EVERY MORNING 90 tablet 1 024 Active azithromycin (Zithromax) 250 MG tablet TAKE 1 TABLET BY MOUTH EVERY MORNING (FRIDAY, FRIDAY AND FRIDAY) Active predniSONE (Deltasone) 10 MG tablet TAKE 2 TABLETS BY MOUTH ONCE DAILY FOR 7 DAYS, THEN TAKE 1 TABLET BY MOUTH ONCE DAILY FOR 7 DAYS Active Continuous Glucose Smoking Pipe Maker (FreeStyle Erinn 2 Burton) deviceIndication s:Diabetes due to underlying condition w oth circulatory comp ([facility]) Use as directed to monitor glucose ever 8 hours. 1 each Active Continuous Glucose Sensor (FreeStyle Erinn 2 Sensor) miscIndications: Diabetes due to underlying condition w oth circulatory comp ([facility]) Use as directed to monitor glucose ever 8 hours. Replace sensor every 14 days. 2 each Active glucose blood (FreeStyle Precision Mikel Test) test stripIndications :Diabetes due to underlying condition w oth circulatory comp ([facility]) Test blood sugar q 8 hours 100 each 12 Active calcium 500 MG tablet Take 1 tablet (500 mg) by mouth with breakfast and with evening meal. 60 tablet 5 Active Trelegy Ellipta 200-62.5-25 MCG/ACT aerosol powder Active Roflumilast 500 MCG tablet Take 1 tablet by mouth Once per day. Active insulin glargine (Lantus) 100 UNIT/ML penIndications:T ype 2 diabetes mellitus without complication, with long-term current use of insulin ([facility]) Inject 18 Units under the skin at bedtime. 15 mL 2 Active pen needle 32G x 4 mm miscIndications: Type 2 diabetes mellitus without complication, with long-term current use of insulin ([facility]) Use as instructed 30 each Active FREESTYLE LITE test stripIndications :Type 2 diabetes mellitus without complication, with long-term current use of insulin ([facility]) TEST BLOOD SUGAR THREE TIMES DAILY DIRECTED 100 strip 11 Active Easy Touch Lancets 33G/Twist misc TEST BLOOD SUGAR 3 TIMES A DAY DIRECTED 100 each Active Ventolin HFA 108 (90 Base) MCG/ACT inhaler Inhale 1-2 puffs every 4 (four) hours if needed for shortness of breath or wheezing. 18 g 2 Active gabapentin (Neurontin) 300 MG capsuleIndicatio ns:Chronic midline low back pain without sciatica TAKE 1 CAPSULE BY MOUTH THREE TIMES DAILY IN THE MORNING, EVENING, AND BEDTIME 90 capsule 1 Active Oyster Shell Calcium 500 MG tablet TAKE 1 TABLET BY MOUTH TWICE DAILY IN THE MORNING AND IN THE EVENING WITH MEALS Active Continuous Glucose Smoking Pipe Maker (FreeStyle Erinn 3 Burton) deviceIndication s:Type 2 diabetes mellitus without complication, with long-term current use of insulin ([facility]) 1 each 3 times daily. As directed 1 each Active Continuous Glucose Sensor (FreeStyle Erinn 3 Sensor) miscIndications: Type 2 diabetes mellitus without complication, with long-term current use of insulin ([facility]) 1 each every 14 (fourteen) days. 2 each Active Aspirin Low Dose 81 MG EC tabletIndication s:Type 2 diabetes mellitus without complications ([facility]) TAKE 1 TABLET BY MOUTH EVERY EVENING 90 tablet 1 12/23/2 024 Active cyanocobalamin (Vitamin B-12) 1000 MCG tabletIndication s:Routine health maintenance TAKE 1 TABLET BY MOUTH EVERY EVENING 90 tablet 024 Active Tradjenta 5 MG tabletIndication s:Type 2 diabetes mellitus without complication, unspecified whether nursing home insulin use (CMS/HCC) TAKE 1 TABLET BY MOUTH EVERY MORNING 90 tablet 024 Active metFORMIN (Glucophage) 500 MG tablet TAKE 1 TABLET BY MOUTH EVERY MORNING and TAKE 2 TABLETS BY MOUTH EVERY DAY IN THE EVENING 270 tablet 024 Active glipiZIDE XL (Glucotrol XL) 10 MG 24 hr tablet TAKE 1 TABLET BY MOUTH EVERY MORNING WITH BREAKFAST 90 tablet 024 Active pantoprazole (ProtoNix) 40 MG EC tablet TAKE 1 TABLET BY MOUTH EVERY MORNING 90 tablet 024 Active lisinopril-hydro CHLOROthiazide 20-12.5 MG tabletIndication s:Primary hypertension TAKE 1 TABLET BY MOUTH EVERY MORNING 90 tablet 024 Active rosuvastatin (Crestor) 40 MG tablet TAKE 1 TABLET BY MOUTH AT BEDTIME 90 tablet 1 025 Active ezetimibe (Zetia) 10 MG tablet TAKE 1 TABLET BY MOUTH EVERY MORNING 90 tablet 1 025 Active rosuvastatin (Crestor) 40 MG tablet TAKE 1 TABLET BY MOUTH AT BEDTIME 90 tablet 1 024 2024 Discontinued ezetimibe (Zetia) 10 MG tablet TAKE 1 TABLET BY MOUTH EVERY MORNING 90 tablet 1 024 2024 Discontinued Active Problems Problem Noted Date Diagnosed Date Former smoker 04/02/2024 Overview (04/02/2024): LDCT LUNG RADS 1: negative 01/30/24, Lung-RADS Category S: Negative. Urinary incontinence without sensory awareness 1 Overweight (BMI 25.0-29.9) 12/16/2023 Hearing loss 07/18/2023 Strongyloides stercoralis infection 04/14/2023 Bilateral carpal tunnel syndrome 03/12/2023 Anemia 11/13/2022 Assessment & Plan (11/13/2022 6:59 AM EDT): -09/2022: hb 10 <--- 10.3 -hx of anemia MCV elevated -folate as well iron panel ,vit b 12 wnl -Will monitor CBC today and refer to fitting room maintenance mechanic at next apt (anemia) Abnormal uterine bleeding 11/13/2022 Assessment & Plan (11/13/2022 7:01 AM EDT): Pt was seen at the [facility] last mo for AUB. Already referred by provider to head butler. Not gone yet. gave today information to pt to call for apt . Left shoulder pain 08/19/2022 Assessment & Plan (11/13/2022 6:46 AM EDT): Pt w 4 months of ongoing left shoulder pain w no trauma hx and no erythema,swelling nor increase in skin temp , pain w ROM -Left shouldler XR 07/2022: No significant bony abnormality of the left shoulder identified. Possible rotator cuff injury -referred already x MRI w/o contrast left shoulder to eval for rotator cuff tear---- gave today information to pt to call for apt -continue to f w orthopedic ---- not responsive to x1 steroid injection -tylenol up to 1000 mg Q 8 h -topical diclofenac cream -avoiding oral NSAIDS x hx of CKD-however last labs Cr was normal -lidoderm patch -will hold on PT referral until have MRI result -pain is too intense to participate in tx Assessment & Plan (08/19/2022 6:12 PM EDT): Pt w 2 months of ongoing left shoulder pain w no trauma hx and no erythema,swelling nor increase in skin temp , pain w ROM -Left shouldler XR 07/2022: No significant bony abnormality of the left shoulder identified. Possible rotator cuff injury -referred today x MRI w/o contrast left shoulder to eval for rotator cuff tear -referred to orthopedic may need inj in joint -I request to referral spec and PA spec to try to do referal and image as soon as possible -tylenol up to 1000 mg Q 8 h -start topical diclofenac cream -avoiding oral NSAIDS x hx of CKD-however last labs Cr was normal -start lidoderm patch -start prednisone x 7 days -will hold on PT referral until have MRI result -pain is too intense to participate in mi Health care maintenance 08/19/2022 Assessment & Plan (11/13/2022 6:56 AM EDT): -Menopause: 48 y of age -pap smear:Last record 09/2020: Neg -pt denies hx of abnormal pap smear -may consider to stop screening vs repeating at least one more and if neg to stop -if repeat would do x 4 -MM 11/2021: BIRADS 2: Benign-annual screening -will refer at next apt x 11/2022 if not called by hospital to schedule apt. -colonoscopy:Per pt done in [address] [facility]-- ---- requested today record to Abiola Menendez Not able to obtain, referred today to GI given uncertainty. -DEXA scan 08/2022 : None per pt -referred already - has apt for 12/09/2022. -vaccines:s/p hepAx4, HepBx5 - immune, covid 19 X2 and Bivalent x1 in 06/2022, S/P P23x2 and then p13 x1 ,zoster x2, Flu vaccine today. ----- -Abd US 05/2020 : Enlarged echogenic liver probably representing fatty infiltration. Otherwise unremarkable exam --- From labs obtained 08/30/2022 not in system but have printed labs in desk Assessment & Plan (08/19/2022 6:10 PM EDT): Menopause: 48 y of age -pap smear:Last record 09/2020: Neg -pt denies hx of abnormal pap smear -may consider to stop screening vs repeating at least one more and if neg to stop -if repeat would do x 4 -MM 11/2021: BIRADS 2: Benign-annual screening -will refer at next apt x 11/2022 -colonoscopy:Per pt done in [address] [facility]-- ---- requested today record to Abiola Menendez -DEXA scan 08/2022 : None per pt -referred today -vaccines:s/p hepAx4, HepBx5, covid 19 X2 and Bivalent x1 in 06/2022 -Will discuss about 2nd booster in 4 months from lat one aprox 10/2022, S/P P23x2 and then p13 x1 ,zoster x2 -labs x annual exam-pt will RTC in fasting -pt agreed to have STI testing including HIV to have for baseline ----- -Abd US 05/2020 : Enlarged echogenic liver probably representing fatty infiltration. Otherwise unremarkable exam Hypertension 08/19/2022 Assessment & Plan (11/13/2022 7:03 AM EDT): Pt on lisinopril/HDCTZ BP controlled 09/2022: microalb - neg. -EKG 09/2022 at [facility] [place] - NSR, QTC 454, no ischemic changes, HR 104 -opthalmo : 07/2022 To f up in 01/2023 Assessment & Plan (08/19/2022 5:56 PM EDT): Pt on lisinopril/HDCTZ BP controlled -today actually borderline low -will monitor BP at next apt -will do EKG at future visit -microalb ordered -opthalmo : 07/2022 To f up in 01/2023 Memory loss 08/19/2022 Assessment & Plan (11/13/2022 6:53 AM EDT): Noted pt to be forgetful -Request nurse staff to do MOCA eval. Assessment & Plan (08/19/2022 6:06 PM EDT): Noted pt to be forgetful -will do MOCA eval at future apts -I called pt's daugther and inform about plan and I confirmed pt is taking all meds px Bladder CA in situ 08/09/2022 Assessment & Plan (11/13/2022 7:01 AM EDT): Pt w hx of bladder ca-thinks saw last oncologist at [facility] like 5 y ago -unsure if needed to f up or not 08/2022: UA neg -urine cytology : has few irregular atypical urothelial cells with increase nuclear cytoplasmic rations ----referred already to urologist with hx of bladder ca--- gave today information to pt to call for apt Assessment & Plan (08/19/2022 5:37 PM EDT): Pt w hx of bladder ca-thinks saw last oncologist at [facility] like 5 y ago -unsure if needed to f up or not --requested record to Abiola Menendez From last oncology visit -today UA to eval x blood and urine cytology if present will refer to urologist and oncologist Idiopathic osteoarthritis 11/06/2018 Panic disorder with agoraphobia 07/31/2017 Assessment & Plan (11/13/2022 6:51 AM EDT): Pt w hx of depression/anxiety and panic attacks Denies SI -continue care w psychiatrist and PT-evita bain [facility] clinic in this building -psych meds refilled by specialist Assessment & Plan (08/19/2022 5:41 PM EDT): Pt w hx of depression/anxiety and panic attacks Denies SI -continue care w psychiatrist and PT-evita bain [facility] clinic in this building -psych meds refilled by specialist Diabetes due to underlying condition w oth circu latory comp 04/10/2017 Assessment & Plan (05/20/2023 7:41 PM EDT): Hyperglycemia secondary to prednisone, glucometer ordered Encouraged hydration, Add lantus 10 units, measure fasting sugars, call for fasting sugars greater than 250 for 3 days , Discontinue when fasting sugars return to 100s, or immediately for any lows. Close follow up with pcp Plan relayed to daughter, and pharmacy. Assessment & Plan (11/13/2022 6:52 AM EDT): DM2 on glipizide,DPP4 and metformin Today HbA1c: 6.7, glucose 116. 08/2022: LDL 6.4, microalb neg, LDL 150, TG 233, Tot Chol 263, HDL 67. -ophthalmology 10/2022 - mild non-proliferative diabetic retinopathy. -Tailor'S Aide: will refer at next apt -Pt already on max dose of Rosuvastatin - compliant. Will add Ezetimibe. -- I called [facility] to add Rx. -Will repeat lipids, DM2 labs, and chem in 3 mo. -Will calculate ASCVD at next apt, but pt already on statins and ASA. Assessment & Plan (08/19/2022 5:39 PM EDT): DM2 on glipizide,DPP4 and metformin -will do DM labs -ophthalmology 07/2022 : Cataracts, left eye choroidal nevus to f up in 01/2023 -Tailor'S Aide: will refer at next apt Allergic rhinitis 02/03/2015 Assessment & Plan (11/13/2022 6:56 AM EDT): Chronic nasal congestion and chronic flonase use -advised pt to use only as needed -prescribe instead ocean nasal spray -will refer at future visit to ENT x chronic nasal symptoms and hearing loss eval Assessment & Plan (08/19/2022 5:40 PM EDT): Chronic nasal congestion and chronic flonase use -advised pt to use only as needed -prescribe instead ocean nasal spray -will refer at future visit to ENT x chronic nasal symptoms and hearing loss eval Asthma-COPD overlap syndrome 02/03/2015 Assessment & Plan (05/20/2023 7:39 PM EDT): Pt currently tolerating prednisone and reports no increased sob, bradshaw, or orthopnea, Repots steady improvement in symptoms with prednisone Continue trelegy and albuterol prn for wheeze Denies s/e except elevated blood sugar see plan below Assessment & Plan (11/13/2022 6:42 AM EDT): Asthma/COPD Overlap syndrome Pt is following w cardiac cath lab manager -Dr Morales -last note obtained on 02/2022 -CT chest,abd/pelvis with contrast 2019:Tree-in-bud appearance and reticulonodular changes in right upper lobe.These findings are likely secondary to airway disease or inflammatory process. There is a calcified nodule right upper lobe. No consolidation, mass or abnormal mediastinal lymphadenopathy seen. Diffuse colonic diverticulosis without diverticulitis. -Pt reports using her singulair ,trelegy,albuterol inh and NBZ prn -on dupixent inj -per pt getting med -advised pt to f w her cardiac cath lab manager and I printed at last apt CT chest done in 2019 with abnormal findings -not mentioned in last pulm visit note from 02/2022 -pt will f w specialist about need to repeat image if not done before Assessment & Plan (08/19/2022 6:08 PM EDT): Asthma/COPD Overlap syndrome Pt is following w cardiac cath lab manager -Dr Morales -last note obtained on 02/2022 -CT chest,abd/pelvis with contrast 2019:Tree-in-bud appearance and reticulonodular changes in right upper lobe.These findings are likely secondary to airway disease or inflammatory process. There is a calcified nodule right upper lobe. No consolidation, mass or abnormal mediastinal lymphadenopathy seen. Diffuse colonic diverticulosis without diverticulitis. -Pt reports using her singulair ,trelegy,albuterol inh and NBZ prn -on dupixent inj -per pt getting med -pt states has af up w pulm in 09/2022 --I confirmed w pt's daugther that pt is using all inh and med -Reports 2 weeks w exacerbation of her symptoms w no productive cough, fever nor chills -states just had a NBZ of albuterol at home -px today prednisone 20 mg daily x 3 days and then to take 10 mg daily x 4 days -alarm signs and symptoms discussed in case does not improves to go to ED -advised pt to f w her cardiac cath lab manager and I printed today CT chest done in 2019 with abnormal findings -not mentioned in last pulm visit note from 02/2022 -pt will f w specialist about need to repeat image if not done before Gastroesophageal reflux disease 02/03/2015 Assessment & Plan (11/13/2022 6:43 AM EDT): Pt on 3 times a week PPIs -Not able to obtain previous GI info. Pt doesn't recall any GI visits. Referred today to GI. Assessment & Plan (08/19/2022 5:36 PM EDT): Pt on 3 times a week PPIs -will f at her next apt about previous EGD if done -if now will need to consider x referral -requested record to [facility] Menendez From last GI visit Mixed hyperlipidemia 02/03/2015 Assessment & Plan (11/13/2022 6:51 AM EDT): As in DM2 problem. JIMBO (obstructive sleep apnea) 02/03/2015 Assessment & Plan (11/13/2022 6:40 AM EDT): Pt has JIMBO-uses CPAP at night sleep study in 2018 : mild JIMBO per pulm note -f w cardiac cath lab manager who referred back x sleep studies -pd to have test done -DELISA Luu gave info to pt to call to reschedule apt Assessment & Plan (08/19/2022 5:30 PM EDT): Pt has JIMBO-uses CPAP at night sleep study in 2018 : mild JIMBO per pulm note -f w cardiac cath lab manager who referred back x sleep studies -pd to have test done -DELISA Luu gave info to pt to call to reschedule apt Resolved Problems Problem Noted Date Diagnosed Date Resolved Date Eosinophilia 11/13/2022 07/18/2023 Assessment & Plan (11/13/2022 6:59 AM EDT): -09/2022: eosinophilia AEC 1200 <--- 1300 -repeat CBC ,strongy labs , IgE - ordered in 09/2022 but not done. Pt will do labs today. Obesity 02/03/2015 12/16/2023 Assessment & Plan (11/13/2022 6:51 AM EDT): Advised pt to improve diet and exercise,discussed healthy life style - noted weight loss of 11 lb in last 2 mo. -Will monitor weight at next visit, and if weight loss is ongoing, will need to start workup. Assessment & Plan (08/19/2022 5:37 PM EDT): Advised pt to improve diet and exercise,discussed healthy life style Encounters Date Type Department Care Team Description 04/07/2024 Refill [facility] [address] [place] [address] Meredith Srinivasan MD Chronic midline low back pain without sciatica 04/04/2024 Refill [facility] [address] [place] [address] Flower High MD 03/15/2024 [address] [facility] [address] [place] [address] Flower High MD 02/23/2024 Orders Only [facility] [address] [place] [address] Flower High MD 02/17/2024 Refill [facility] [address] [place] [address] J Carlos Sin MD Primary hypertension 02/13/2024 Refill [facility] [address] [place] [address] Flower High MD 02/13/2024 Refill [facility] [address] [place] [address] J Carlos Sin MD Routine health maintenance; Type 2 diabetes mellitus without complication, unspecified whether nursing home insulin use ([facility]) 02/09/2024 Refill [facility] [address] [place], [place] [id number] Flower High MD Type 2 diabetes mellitus without complications (CMS/HCC) 02/04/2024 Refill [facility] [address] [place] [address] Katie Preciado, PharmD Type 2 diabetes mellitus without complication, with long-term current use of insulin ([facility]) (Primary Dx) 02/04/2024 Refill [facility] [address] [place] [address] Flower High MD Chronic midline low back pain without sciatica 02/02/2024 Travel from Last 3 Months Immunizations Name Administration Dates Next Due Hep A, Adult 09/14/2019, 0,02/09/2013,10/06 Hep B, adult 09/14/2019, 0,11/23/2008,11/17,10/06/2000 Influenza injectable quadriv alent IIV4 with preservative 11/06/2017,01/16/2017,11/15/2015,12/12 Influenza injectable quadriv alent preservative free 11/11/2022 Influenza, High Dose Seasona l, Preservative Free 12/16/2023,11/05/2018 Influenza, IIV3, injectable 11/05/2013, 1,01/10/1997 Influenza, Split (incl. david fied surface antigen) 12/28/2012,12/10/2011 Pfizer Covid-19 Vaccine 12+ 12/16/2023, Pneumococcal Conjugate PCV 13 03/24/2018 Pneumococcal Conjugate PCV 20 07/17/2023 Pneumococcal Polysaccharide PPSV23 02/20/2016, RSV Bivalent 04/15/2023 Tdap 03/14/2021,12/10/2011 Zoster, Recombinant 09/02/2019,04/15/2019 Zoster, live 02/03/2015 Family History Medical History Relation Name Comments Asthma Father Diabetes Father Prostate cancer Father Bone cancer Mother Relation Name Status Comments Father Mother Social History Tobacco Use Types Packs/Day Years Used Date Smoking Tobacco: Former Cigarettes Smokeless Tobacco: Never Tobacco Cessation:Counseling Given: Not Answered Comments:Started at 20 y of age until [...] your housing situation today? I have tomas sing 12/17/[address] you li [...] Orientation Straight 12/17/2021 10 :14 AM EDT Last Filed Vital Signs Vital Sign Reading Time Taken Comments Blood Pressure 100/60 12/16/2023 3:01 PM EDT Pulse 96 12/16/2023 3:01 PM EDT Temperature 36.5 ??C (97.7 ??F) 12/16/2023 3:01 PM ED T Respiratory Rate 18 12/16/2023 3:01 PM EDT Oxygen Saturation 95% 12/16/2023 3:01 PM EDT Inhaled Oxygen Concentration - - Weight 64.4 kg (142 lb) 12/16/2023 3:01 PM EDT Height 149.9 cm (4' 11 ) 12/16/2023 3:01 PM EDT Body Mass Index 28.68 12/16/2023 3:01 PM EDT Plan of Treatment Upcoming Encounters Date Type Department Care Team (Late st Contact Info) Description 04/26/2024 3:00 PM EDT Office Visit [facility] [address] [place], [place] [id number] Juno, Mabel, OD [address] [place] [address] Health Maintenance Due Date Last Done Comments CT Colonography 1952 Dental Prophylaxis 1952 FIT DNA/Cologuard 1952 FIT 1952 FOBT 1952 Sigmoidoscopy 1952 Alcohol/Substance Use Screening 1964 Dental X-Ray: Bitewings 03/30/2010 03/29/2009 Colonoscopy 06/16/2022 06/16/2012 Colorectal Cancer Screening 06/16/2022 Dental Oral Exam 10/17/2023 04/17/2023, , 07/03/2016 Depression Monitoring (PHQ-9) 06/16/2024 12/17/2023, 12/17/2023 Diabetes: Hemoglobin A1C 07/05/2024 024, 06/09/2023, 11/11/2022 Diabetes: Foot Exam 09/28/2024 09/29/2023 Tobacco Screening 12/15/2024 12/16/2023 Depression Screening 12/16/2024 12/17/2023, 12/17/19 24 SDOH Screening 12/16/2024 12/17/2023 Diabetes: Urine Protein Screening 01/05/2025 01/06/2024, 06/09/2023, 08/09/2021, Additional history exists Lipid Panel 01/05/2025 01/06/2024, 05/19, 08/09/2021 Eye Exam 01/30/2025 01/30/2023, 01/17, 01/30/2023, Additional history exists Mammogram 12/24/2025 12/25/2023, 11/17, 12/05/2022, Additional history exists Dental X-Ray: Full Mouth 04/17/2026 024, 07/03/2016, 03/29/2009 DTaP/Tdap/Td Vaccines (3 - Td or Tdap) 03/14/2031 03/14/2021, 12/10/2011 Zoster Vaccines Completed 09/02/2019, 03/21, 02/03/2015 Hepatitis A Vaccines Aged Out 09/14/2019, 05/05/2019, 02/09/2013, Additional history exists No longer eligible based on patient's age to complete this topic Hepatitis B Vaccines Completed 09/14/2019, 05/05/2019, 11/23/2008, Additional history exists RSV Patients and Patients Aged 60 years or older Completed 04/15/2023 Pneumococcal Vaccine: 50+ Years Completed 07/17/2023, 03/24/2018, 02/20/2016, Additional history exists COVID-19 Vaccine Completed 12/16/2023, , 06/17/2022, Additional history exists Influenza Vaccine Completed 12/16/2023, , 11/05/2018, Additional history exists Hepatitis C Screening Completed 01/06/2024, 022 HIB Vaccines Aged Out No longer eligi ble based on patient's age to complete this topic HPV Vaccines Aged Out No longer eligi ble based on patient's age to complete this topic IPV Vaccines Aged Out No longer eligi ble based on patient's age to complete this topic Meningococcal Vaccine Aged Out No sy serena eligible based on patient's age to complete this topic RSV under 20 months Aged Out No longe r eligible based on patient's age to complete this topic Rotavirus Vaccines Aged Out No longer eligible based on patient's age to complete this topic Procedures Procedure Name Priority Date/Time Associated Diagnosis Comments CYTOPATH-CELL ENHANCED Routine 5 4:46 PM EST LDCT LUNG SCREENING Routine 01/30/2024 1 0:54 AM EST HEPATITIS C AB W/REFL TO HCV RNA, QN, PCR Routine 01/06/2024 11:28 AM EST Annual physical exam ALBUMIN, RANDOM URINE W/CREATININE Routine 01/06/2024 11:28 AM EST Annual physical exam HEMOGLOBIN A1C Routine 01/06/2024 11:28 AM EST Annual physical exam LIPID PANEL, STANDARD Routine 01/06/2024 11:28 AM EST Annual physical exam BI MAMMOGRAM SCREENING TOMOSYNTHESIS BILATERAL Routine 12/25/2023 12:35 PM EST AMB REFERRAL TO PODIATRY Routine 09/29/2023 Type 2 diabetes mellitus without complication, with long-term current use of insulin ([facility]) 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 Age/Sex: 73/F ? : 1950 Unit#: [id number] ?? Attend Dr: Abran Hayes MD ?Re02/23/24 ?Status: DEP REF ? Location: HO.LAB ?Disch: ? ----- ------- SPEC : [id number] ?RECD: 02/24/24 ? STATUS: ??SOUT ? REQ NUM: [id number] ? HONEY: 02/23/24-1645 ? SUBM DR: Flower High MD ENTERED: ??02/24/24 ?SP TYPE: Cytology ? OTHR DR: Abran Sousa MD ? ORDERED: ??Cyto-enhanced ? Diagnosis ?? Urine: ??Negative for high-grade urothelial carcinoma; yeast present. ??See comment. ? COMMENT: Cellular specimen consisting of few single urothelial cells, squamous cells, ?? mixed inflammatory cells and yeast forms consistent with Rachel species. ?Clinical History Personal history of malignant neoplasm of bladder ? Material Received ?? Urine ? Gross Description Received is 18 cc of clear yellow fluid from which a ThinPrep slide is prepared. Copies To: ?? Abran Hayes MD ?? [facility] [place] ?? [address] [place] [address] [address] ?? [place] [address] ?? [phone] ?? [email or web address] ?? Flower High MD ?? [address] ?? [place] [address] ?? [phone] ----- ------- Signed (signature on file) Germain Anguinao MD 02/25/24804 ? ----- ------- ? END OF REPORT ? us Flower Miranda MD LAB CYTOLOGY YURY BUTCHER Final Result [facility] [address] [place] [address] [phone] * CT Lung Screening Low dose (01/30/2024 10:54 AM EST) Anatomical Region Laterality Modality Lung Computed Tomogra phy 01/30/2024 10:5 4 AM EST Narrative 03/17/2024 11:59 AM EST ? [facility] ?[address] ?[place] [address] ? CT Scan Report ? Signed ? Patient: Willie,Carole ?MR#: [id number] ? : 1950 ?Acct:[id number] ? Age/Sex: 73 / F ?ADM Date: 12/13/24 ? Loc: HO.CT ? Attending Dr: Cass Vega PA-C ? Ordering Physician: Cass Vega PA-C ?? Date of Service: 01/30/24 ?? Procedure(s): CT lung screening ?? Accession Number(s): [id number] ? cc: Cass Vega PA-C; Flower High MD ? Report Number: ?? [id number]: Total DLP = ?? 48.00 mGy-cm ?? EXAMINATION: ?? CT LOW-DOSE SCREENING CHEST WITHOUT CONTRAST ? CLINICAL INFORMATION: ?? Nicotine dependence, cigarettes, uncomplicated. The patient has a 55 ?? pack-year history of smoking, having quit 1 year ago. ? COMPARISON: ?? CT chest 11/15/2019 and 06/14/2019. ? TECHNIQUE: ?? Multidetector volumetric CT imaging of the chest is performed on a ?? Siemens SOMATOM Definition scanner without contrast using low dose ?? technique. Additional 2D coronal and sagittal reformatted images and ?? axial 3D maximum intensity projection (MIP) images are generated on the ?? CT workstation. ? This CT examination was performed using dose optimization techniques as ?? appropriate, variously including the following: ?? *Automated exposure control ?? *Adjustment of mA and/or kV according to patient size (this includes ?? techniques or standardized protocols for targeted exams where dose is ?? matched to indication/reason for exam; i.e. extremities or head) ?? *Use of iterative reconstruction technique ? TOTAL EXAM DLP: ?? 48 mGy-cm. ? CTDIvol: ?? 1.59 mGy. ? FINDINGS: ? PULMONARY NODULES: No suspicious pulmonary nodules. ?? Unchanged 3 mm calcified granuloma is seen in lateral right upper lobe ?? apical segment, series 5 image #52. ? LUNGS: Lungs bilaterally symmetrically expanded. Branching fibrotic ?? scars are seen in anterior lateral right lung apex. No effusion or ?? pneumothorax. Central airways patent. ? MEDIASTINUM: No mediastinal, hilar or axillary adenopathy or free fluid ?? collection. ? CORONARY ARTERY CALCIFICATION: Present, marked and extensive ? THYROID GLAND: Unremarkable to the extent seen. ? CARDIOVASCULAR STRUCTURES: Aortic and heart size normal. Scattered ?? atherosclerotic calcifications are seen in the thoracic aorta. No ?? pericardial effusion. ? CHEST WALL/AXILLA: Unremarkable. ? UPPER ABDOMEN: Included portions of the solid organs in the upper ?? abdomen unremarkable on noncontrast imaging. ? OSSEOUS STRUCTURES: No suspicious focal findings. ? CT/CT lung screening ?? IMPRESSION: ?? Unremarkable examination. ? ASSESSMENT: ?? 1. Lung-RADS Category 1: Negative. There are no nodules or there are ?? definitely benign nodules. Stable right apical calcified granuloma. ? 2. Lung-RADS Category S: Negative. There are no clinically significant ?? or potentially clinically significant findings not related to the lungs ?? requiring urgent additional evaluation. ? RECOMMENDATION: ?? Continued routine annual low-dose CT lung screening in 1 year is ?? recommended. An order for CT CHEST LOW DOSE CANCER SCREENING ([id number]) ?? can be placed. ? Electronically signed by: ??Conner Bernstein MD ??03/17/2024 11:57 AM EST ? Dictated By: ?Conner Bernstein ? Signed By: ?<Electronically signed by Conner Bernstein in OV> ? 03/17/24 1157 ? DD/ 1054 ? TD/TT: 01/30/24 1124 ? Staffing And Scheduling Coordinator: ? Procedure Note Ashuivonedbpenny, Image - 03/17/[address] [place] [address] [address] Scan Report Signed Patient: Sherrie Tapia#: [id number] : 3Acct:[id number] Age/Sex: 73 / FADM Date: 01/30/24 Loc: HO.CT Attending Dr: Cass Vega PA-C Ordering Physician: Cass Vega PA-C Date of Service: 01/30/24 Procedure(s): CT lung screening Accession Number(s): [id number] cc: Cass Vega PA-C; Flwoer High MD Report Number: [id number]: Total DLP = 48.00 mGy-cm EXAMINATION: CT LOW-DOSE SCREENING CHEST WITHOUT CONTRAST CLINICAL INFORMATION: Nicotine dependence, cigarettes, uncomplicated. The patient has a 55 pack-year history of smoking, having quit 1 year ago. COMPARISON: CT chest 11/15/2019 and 06/14/2019. TECHNIQUE: Multidetector volumetric CT imaging of the chest is performed on a Siemens SOMATOM Definition scanner without contrast using low dose technique. Additional 2D coronal and sagittal reformatted images and axial 3D maximum intensity projection (MIP) images are generated on the CT workstation. This CT examination was performed using dose optimization techniques as appropriate, variously including the following: *Automated exposure control *Adjustment of mA and/or kV according to patient size (this includes techniques or standardized protocols for targeted exams where dose is matched to indication/reason for exam; i.e. extremities or head) *Use of iterative reconstruction technique TOTAL EXAM DLP: 48 mGy-cm. CTDIvol: 1.59 mGy. FINDINGS: PULMONARY NODULES: No suspicious pulmonary nodules. Unchanged 3 mm calcified granuloma is seen in lateral right upper lobe apical segment, series 5 image #52. LUNGS: Lungs bilaterally symmetrically expanded. Branching fibrotic scars are seen in anterior lateral right lung apex. No effusion or pneumothorax. Central airways patent. MEDIASTINUM: No mediastinal, hilar or axillary adenopathy or free fluid collection. CORONARY ARTERY CALCIFICATION: Present, marked and extensive THYROID GLAND: Unremarkable to the extent seen. CARDIOVASCULAR STRUCTURES: Aortic and heart size normal. Scattered atherosclerotic calcifications are seen in the thoracic aorta. No pericardial effusion. CHEST WALL/AXILLA: Unremarkable. UPPER ABDOMEN: Included portions of the solid organs in the upper abdomen unremarkable on noncontrast imaging. OSSEOUS STRUCTURES: No suspicious focal findings. CT/CT lung screening IMPRESSION: Unremarkable examination. ASSESSMENT: 1. Lung-RADS Category 1: Negative. There are no nodules or there are definitely benign nodules. Stable right apical calcified granuloma. 2. Lung-RADS Category S: Negative. There are no clinically significant or potentially clinically significant findings not related to the lungs requiring urgent additional evaluation. RECOMMENDATION: Continued routine annual low-dose CT lung screening in 1 year is recommended. An order for CT CHEST LOW DOSE CANCER SCREENING ([id number]) can be placed. Electronically signed by: Conner Bernstein MD 03/17/2024 11:57 AM [facility] Dictated By: Conner Bernstein Signed By: <Electronically signed by Conner Bernstein in OV> 03/17/24 1157 DD/ 1054 TD/TT: 01/30/24 1124 Staffing And Scheduling Coordinator: [facility] External Provider IMG CT PROCEDURES Edited Result - Final * Albumin, Random Urine W/Creatinine (01/06/2024 11:28 AM EST) Creatinine, Urine 162.24 mg/dL [facility] Microalbumin Urine 8.0 mg/L [facility] Microalbum Creatinine Ratio Ur 4.9 <30 ug/mg cr [facility] Comment:Albumin/Creatinine R atio Reference Ranges: Normal: < 30 ug/mg creatinine Microalbuminuria: 30 - 300 ug/mg creatinineClinical Albuminuria: > 300 ug/mg creatinine Urine (Urine, Random) 01/06/2024 11:28 AM EST 01/06/2024 1:08 PM EST Flower Miranda MD LAB URINE ORDERAB LES Final Result Performing Organization Address [facility]/ZIP Co de Phone Number [facility] [address] [place] [phone] * Hepatitis C Antibody with Reflex to HCV, RNA, Quantitative, Real-Time PCR (01/06/2024 11:28 AM EST) Pathologist [facility] Hepatitis C Antibody Nonreactive Nonreactive [facility] Comment:Antibodies to HCV no t detected; does not exclude early acuteHCV infection. Blood Venous blood specimen / Unknown 01/06/2024 11:28 AM EST 01/06/2024 1:08 PM EST Flower Miranda MD LAB BLOOD ORDERAB LES Final Result Performing Organization Address [facility]/ZIP Co de Phone Number [facility] [address] [place] [phone] * (ABNORMAL) Hemoglobin A1c (01/06/2024 11:28 AM EST) Hemoglobin A1c 6.7(H) <6.0 % [facility] Comment:Hemoglobin A1C Refer ence Range Adults: 4.8 - 6.0 % Non diabetic: < 6.0 % Goal: < 7.0 %Additional Action Suggested: > 8.0 %Note: Hemoglobin A1c results are invalid for patients with abnormal amounts of HbF. Blood transfusions may impact the HbA1c concentration in the patient sample. Estimated Average Glucose 146 mg/dL [facility] Comment:eAG = Estimated ave rage glucose which is %A1C expressed asaverage glucose, using the formula of the R3O-TyigcthPbrldtu Glucose study (ADAG), Diabetes Care, Vol.31,#8,Sep. 2007 Blood Venous blood specimen / Unknown 01/06/2024 11:28 AM EST 01/06/2024 1:08 PM EST us Flower Miranda MD LAB BLOOD ORDERAB LES Final Result [facility] [address] [place] [phone] * (ABNORMAL) Lipid Panel, Standard (01/06/2024 11:28 AM EST) Triglycerides 443(H) <150 mg/dL [facility] Comment:Slight Lipemia.James able Triglyceride: less than 150 mg/dLBorderline High Triglyceride 150-199 mg/dLHigh Triglyceride: 200-499 mg/dLVery High Triglyceride: greater than or equal to 5OO mg/dL Cholesterol 198 <200 mg/dL [facility] Comment:Desirable Cholestero l: less than 200 mg/dLBorderline High Cholesterol: 200-239 mg/dLHigh Cholesterol: greater than 239 mg/dL LDL Cholesterol Calculated TNP <100 mg/dL [facility] Comment:Unable to calculate the LDL. The formula of Friedwald,Kraus, and Latoya is only valid if the triglycerides areless than 400 mg/dl. HDL Cholesterol 66 >40 mg/dL [facility] Comment:Desirable HDL: great er than 40 mg/dL Note: This HDL assay may give artificially low results in patients with liver disease. Blood Venous blood specimen / Unknown 01/06/2024 11:28 AM EST 01/06/2024 1:13 PM EST us Flower Miranda MD LAB BLOOD ORDERAB LES Final Result [facility] [address] [place] [phone] * BI Mammogram Screening Tomosynthesis Bilateral (12/25/2023 12:35 PM EST) Anatomical Region Laterality Modality Breast Bilateral Mammography 12/25/2023 12:3 5 PM EST Narrative 01/02/2024 4:11 PM EST ? [facility] ? [address] ?[place] [address] ? Mammography Report ? Signed ? Patient: Willie,Carole ?MR#: [id number] ? : 1950 ?Acct:[id number] ? Age/Sex: 72 / F ?ADM Date: 12/25/23 ? Loc: HO.MAMMO ? Attending Dr: Flower Miranda MD ? Ordering Physician: Flower High MD ?Re ?? sults: 2Benign Findings ? Date of Service: 12/25/23 ?Follow Up: 1 Year From Orig ?? inal Mammogram ? Procedure(s): MM tomosynthesis screening BI ?? Accession Number(s): [id number] ? cc: Gerry Miranda,Flower Porras MD ? EXAMINATION: ?? MM SCREENING DIGITAL BREAST TOMOSYNTHESIS, BILATERAL ? CLINICAL INFORMATION: ? Screening. Asymptomatic. ? COMPARISON: ?? Mammography: Comparison is made with available priors ? TECHNIQUE: ?? Digital breast mammography with tomosynthesis is performed in both the ?? craniocaudal and mediolateral oblique views along with computer-aided ?? detection (CAD). ? FINDINGS: ?? The breasts are heterogeneously dense, which may obscure small masses ?? (ACR BI-RADS breast composition Category c). ?? Left marker clip. ?? There are no significant masses, abnormal calcifications, or other ?? abnormalities. ? MM/MM tomosynthesis screening BI ?? IMPRESSION: ?? No mammographic evidence of malignancy. ? ASSESSMENT: ? BI-RADS BI-RADS 2 - Benign Findings ? RECOMMENDATION: ?? Routine annual mammography screening. ? 1 year F/U ? This examination should not preclude the clinical evaluation of a ?? suspicious palpable abnormality. ? This patient's information was entered into a reminder system with a ?? target due date for their next mammogram. ? Electronically signed by: ??Fabiana Casiano DO ??01/02/2024 04:08 PM EST ? Dictated By: ?Fabiana Casiano DO ? Signed By: ?<Electronically signed by Fabiana Casiano, DO in OV> ? 01/02/24 1608 ? DD/ 1235 ? TD/TT: 12/25/23 1253 ? Staffing And Scheduling Coordinator: ? Procedure Note Norm, Karla - 01/02/2024 [facility] [address] [place] [address] Dr. [place], [place] [address] Mammography Report Signed Patient: Sherrie Tapia#: [id number] : 1950cct:[id number] Age/Sex: 72 / FADM Date: 12/25/23 Loc: [facility] Attending Dr: Flower Miranda MD Ordering Physician: Flower High sults: 2Benign Findings Date of Service: 12/25/23Follow Up: 1 Year From Orig inal Mammogram Procedure(s): MM tomosynthesis screening BI Accession Number(s): [id number] cc: Flower High MD EXAMINATION: MM SCREENING DIGITAL BREAST TOMOSYNTHESIS, BILATERAL CLINICAL INFORMATION: Screening. Asymptomatic. COMPARISON: Mammography: Comparison is made with available priors TECHNIQUE: Digital breast mammography with tomosynthesis is performed in both the craniocaudal and mediolateral oblique views along with computer-aided detection (CAD). FINDINGS: The breasts are heterogeneously dense, which may obscure small masses (ACR BI-RADS breast composition Category c). Left marker clip. There are no significant masses, abnormal calcifications, or other abnormalities. MM/MM tomosynthesis screening BI IMPRESSION: No mammographic evidence of malignancy. ASSESSMENT: BI-RADS BI-RADS 2 - Benign Findings RECOMMENDATION: Routine annual mammography screening. 1 year F/U This examination should not preclude the clinical evaluation of a suspicious palpable abnormality. This patient's information was entered into a reminder system with a target due date for their next mammogram. Electronically signed by: Fabiana Casiano DO 01/02/2024 04:08 PM [facility] Dictated By: Fabiana Casiano DO Signed By: <Electronically signed by Fabiana Casiano DO in OV> 01/02/24 1608 DD/ 1235 TD/TT: 12/25/23 1253 Staffing And Scheduling Coordinator: Flower Miranda MD IMG BI PROCEDURES Final Result * Referral to Podiatry (09/29/2023) Flower Miranda MD OUTPATIENT REFERR AL ORDERABLES Final Result * Hm Colonoscopy (06/16/2012) Colonoscopy Normal Normal Viv Nazario MD HEALTH MAINTENANCE Final Result from Last 3 Months or Most Recently Relevant to Health Maintenance [facility] STAND ADULT Care Teams Water Filter Cleaner Relationship Specialty Start Date End Date Flower High MD [address] [place] [address] PCP - General Internal Medicine 07/19/22
--- OUTSIDE RECORDS SUMMARY | 2024-04-09 14:44 | XMS_ITS | Encounter Summary ---
Author Organization [employer] Address [address] [place] [address] Care Team Providers Care Emergency Management Coordinator Name Role Phone Claudette Lorenzo Primary Care Provider [phone] Flower High MD Primary Care Pro vider Encounter Details Date Type Department Care Team (Late Contact Info) Description 03/18/2022 Orders Only [facility] [address] [place] [address] Karlene Dow LPN Social History Tobacco Use [...] Description 04/26/2024 3:00 PM EDT Office Visit [facility] [address] [place] [address] Mabel Fraire, OD [address] [place] [address] documented as of this encounter Visit Diagnoses Not on filedocumented in this encounter Care Teams Emergency Management Coordinator Relationship Specialty Start Date End Date Claudette Lorenzo FNP [address] [place] [address] PCP - General Family Medicine 10/11/21 07/18/22 Flower High MD [address] [place] [phone] PCP - General Internal Medicine 07/19/22 documented as of this encounter
--- OUTSIDE RECORDS SUMMARY | 2024-04-09 14:44 | XMS_ITS | Encounter Summary ---
Author Organization [employer] Address [address] [place] [address] Care Team Providers Care Summer Babysitter Name Role Phone Flower High MD Primary Care Pro vider Reason for Visit * Reason Comments Med Refill Encounter Details Date Type Department Care Team ([facility] st Contact Info) Description 03/15/2024 Refill [facility] [address] [place] [address] Flower High MD [address] [place], [place] [phone] Social History Tobacco Use Types Packs/Day Years [...] Description 04/26/2024 3:00 PM EDT Office Visit [facility] [address] [place], [place] [phone] Mabel Fraire, OD [address] [place] [address] documented as of this encounter Visit Diagnoses Not on filedocumented in this encounter Additional Health Concerns Assessment Noted Time PHQ-9 Depression Total Score: 20 024 8:46 AM EDT documented as of this encounter Care Teams Summer Babysitter Relationship Specialty Start Date End Date Flower High MD [address] [place], [place] [phone] PCP - General Internal Medicine 07/19/22 documented as of this encounter
--- OUTSIDE RECORDS SUMMARY | 2024-04-09 14:44 | XMS_ITS | Encounter Summary ---
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 ([facility]) Social History Tobacco Use Types Packs/Day Years [...] the past 12 months, has t he [employer], gas, oil or water company threatened to [...] Description 04/26/2024 3:00 PM EDT Office Visit [facility] [address] [place], [place] [phone] Mabel Fraire OD [address] [place] [address] documented as of this encounter Visit Diagnoses Diagnosis Type 2 diabetes mellitus without complication, unspecified whether prison insulin use ([facility]) documented in this encounter Additional Health Concerns Assessment Noted Time PHQ-9 Depression Total Score: 0 01/07/20 23 1:19 PM EST documented as of this encounter Care Teams Labor Arbitrator Relationship Specialty Start Date End Date Flower High MD [address] [place], [place] [phone] PCP - General Internal Medicine 07/19/22 documented as of this encounter
--- OUTSIDE RECORDS SUMMARY | 2024-04-09 14:44 | XMS_ITS | Encounter Summary ---
Author Organization [employer] Address [address] [place] [address] Care Team Providers Care Painter Spray Name Role Phone Flower High MD Primary Care Pro vider Reason for Visit * Reason Comments Med Refill Encounter Details Date Type Department Care Team ([facility] st Contact Info) Description 05/30/2023 Refill [facility] [address] [place] [address] Flower High MD [address] [place], [place] [phone] Chronic midline low back pain without sciatica Social History Tobacco Use Types Packs/Day Years [...] Description 04/26/2024 3:00 PM EDT Office Visit [facility] [address] [place] [address] Juno, Mabel, OD [address] [place] [address] documented as of this encounter Visit Diagnoses Diagnosis Chronic midline low back pain without sciatica documented in this encounter Additional Health Concerns Assessment Noted Time PHQ-9 Depression Total Score: 0 01/07/20 1:19 PM EST documented as of this encounter Care Teams Painter Spray Relationship Specialty Start Date End Date Flower High MD [address] [place] [address] PCP - General Internal Medicine 07/19/22 documented as of this encounter
--- OUTSIDE RECORDS SUMMARY | 2024-04-09 14:44 | XMS_ITS | Encounter Summary ---
Author Organization [employer] Address [address] [place] [address] Care Team Providers Care Bag Bleacher Name Role Phone Flower High MD Primary Care Pro vider Reason for Visit * Reason Comments Med Refill Encounter Details Date Type Department Care Team ([facility] st Contact Info) Description 04/07/2024 Refill [facility] MEDICINE [address] [place] [address] Meredith Srinivasan MD [address] [place], [place] [phone] Chronic midline low back pain without sciatica [...] Description 04/26/2024 3:00 PM EDT Office Visit [facility] OPTOMETRY [address] [place] [address] Mabel Fraire, OD [address] [place] [address] documented as of this encounter Visit Diagnoses Diagnosis Chronic midline low back pain without sciatica documented in this encounter Additional Health Concerns Assessment Noted Time PHQ-9 Depression Total Score: 20 024 8:46 AM EDT documented as of this encounter Care Teams Bag Bleacher Relationship Specialty Start Date End Date Flower High MD [address] [place] [address] PCP - General Internal Medicine 07/19/22 documented as of this encounter
== END 2024-04-09 14:58 | disposition home or self-care (01) ==
PROVIDERS: PCP Student in an Organized Health Care Education/Training Program; Visit Provider Hospitalist
DX: J44.9 Chronic obstructive pulmonary disease, unspecified (principal)
CPT/HCPCS: 99214; G2211

== ENCOUNTER → 2024-04-09 14:20 | Outpatient (BNVA) | payer OTHER, SELFPAY | PROVIDERS: PCP Student in an Organized Health Care Education/Training Program; Visit Provider Hospitalist | DX: J45.51 Severe persistent asthma with (acute) exacerbation (principal); J44.9 Chronic obstructive pulmonary disease, unspecified; G47.33 Obstructive sleep apnea (adult) (pediatric) | CPT/HCPCS: 96372; 99212; J2919 ==

== ENCOUNTER 2024-04-12 13:31 | Outpatient (REF) | payer OTHER, SELFPAY ==
[2024-04-12 16:45] LABS: Urine Cytology See Pathology rpt
== END 2024-04-12 13:32 | disposition home or self-care (01) ==
LOC: HO.LAB 13:31
PROVIDERS: PCP Student in an Organized Health Care Education/Training Program; Visit Provider Urology
DX: N32.89 Other specified disorders of bladder (principal); N39.0 Urinary tract infection, site not specified; R82.89 Other abnormal findings on cytological and histological examination of urine; R30.0 Dysuria; Z85.51 Personal history of malignant neoplasm of bladder
CPT/HCPCS: 52000; 81003; 88112

== ENCOUNTER 2024-04-12 13:31 | Outpatient (AMB) | payer OTHER, SELFPAY ==
--- NOTE | 2024-04-12 13:38 | A.OFFVIS_ITS ---
Intake Visit Reasons: cysto/CT Intake Note: Patient is present for Cystoscopy/CT Urology Medication:VITAMIN B12 Antibiotic Allergy:NONE Blood Thinner:NONE Lot:[id number] Exp:12/21/26 Energy Auditor Required: Yes Energy Auditor Language: Screener And Blender Name: Tim Escalante Information Interpreted: non-clinical & clinical Allergies No Known Allergies [No Known Allergies*] Allergy (Verified 04/12/24 13:39) HPI Comments Details: 04/12/2024--Carole is here for office cystoscopy. History of bladder cancer. CT urogram is pending. Urine cytology 1725- for malignant cells. Will repeat urine cytology Cystoscopy findings: greater than 2 papillary bladder tumors, left lat wall, posterior wall. Patient will need Pulmonary clearance prior. 02/23/2024--Carole is a 73-year-old past medical history diabetes history of nicotine use, was seen by Dr. Romeo Cazares III, in the past and diagnosed with bladder cancer review of her chart notes a pathology from 08/18/2018 left lateral wall resected tissue papillary urothelial carcinoma low-grade foci of high-grade noninvasive, muscularis propria present in specimen. She complains of seeing blo od in the urine and burning with urination. Urine cytology 09/02/22--few atypical urothelial cells. Comorbidity nicotine use. [facility] Medical History Personal history of nicotine dependence Osteopenia Bladder cancer (~2018) Hypertension Diabetes mellitus Asthma-COPD overlap syndrome JIMBO (obstructive sleep apnea) Nicotine dependence, cigarettes, uncomplicated Bilateral anterior knee pain Surgical History History of transurethral resection of bladder tumor (TURBT) History of esophagogastroduodenoscopy (EGD) History of colonoscopy Social History Household Members: None Housing: Apartment Do you presently have visiting nurse or other home services: Yes ([facility]) Patient Tobacco Use Status: Former Tobacco user Tobacco use type: Cigarette Years Smoked: (onset 15yr,s 1/2-1ppd x 50yrs, 35pyh, quit 2020) service: No Current occupational status: retired and disabled 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 Review of Systems Const All systems reviewed & are unremarkable except as noted in HPI and below Reports no additional complaints Eyes Reports no additional complaints ENT Reports no additional complaints Card Reports no additional complaints Resp Reports no additional complaints GI Reports no additional complaints Reports as per HPI Musc Reports no additional complaints Skin/Breast Reports system reviewed and no additional complaints, except as documented Neuro Reports no additional complaints Psych Reports no additional complaints Endo Reports no additional complaints Kiran/Lymph Reports no additional complaints Aller/Immun Reports no additional complaints Office Procedures Cystoscopy Consent Discussed risk and benefit or proposed procedure with the patient. Information consent for procedure given to the patient. Discussed technical aspects, risks, benefits and alternatives in full. Addressed all of the patient's questions and concerns regarding the procedure. The patient demonstrated knowledge and understanding. They wish to proceed with this procedure. Preparation The patient was prepped in the usual manner. A market research coordinator was present and in the room. Genitalia was prepped with betadine solution in a sterile manner. Lidocaine Jelly 2% was placed into the urethra and 16Fr flexible Olympus cystoscope was inserted into the meatus after adequate lubrication. Procedure Time out per protocol performed. Bladder Inspection Bladder Inspection: The bladder was inspected in its entirety with utilization retroflexion displaying: Tumor(s): Papillary tumors >2 Trabeculation: Tom Mucosal Erthema: mild Orifices: normal shape and position Urethra: normal Cystoscopy findings: greater than 2 papillary bladder tumors, left lat wall, posterior wall. [id number] DISPOSABLE SCOPE URO-G FLEXIBLE SCOPE Procedure code (CPT) selection complete Office Meds lidocaine HCl 2 % mucosal jelly in applicator Performing Provider: Abran Hayes MD Performing Location: [facility] Administered by: Ranulfo Tapia LPN on 04/12/24 14:04 Dose Route Admin Location Dispensed Lot Number Expiration Date [facility] Rib Cloth Knitter 10 mL intra-urethral 10 mL ciprofloxacin HCl 500 mg tablet Performing Provider: Abran Hayes MD Performing Location: [facility] Administered by: Ranulfo Tapia LPN on 04/12/24 14:04 Dose Route Admin Location Dispensed Lot Number Expiration Date [facility] Rib Cloth Knitter 500 mg PO 1 tab Results AMB Urinalysis, Automated UA Leukoctes 0 Sedrick/uL Last Edit by BRANDI Dash on 04/12/24 13:56 UA Nitrite Negative Last Edit by Calli Louis, [facility] on 04/12/24 13:56 UA Urobilinogen 0.2 mg/dL Last Edit by Calli Louis, [facility] on 04/12/24 13:5 6 UA Protein 0 mg/dL Last Edit by Calli Louis, [facility] on 04/12/24 13:56 UA pH 5.5 Last Edit by Calli Louis, [facility] on 04/12/24 13:56 UA Blood 0 Herman/uL Last Edit by Calli Louis, [facility] on 04/12/24 13:56 UA Specific [place] 1.015 Last Edit by Calli Louis, [facility] on 04/12/24 13: 56 UA Ketone Negative Last Edit by Calli Louis, [facility] on 04/12/24 13:56 UA Bilirubin 0 mg/dL Last Edit by Calli Louis, [facility] on 04/12/24 13:56 UA Glucose 1000 mg/dL Last Edit by Calli Louis [facility] on 04/12/24 13:56 Results Reviewed Results Reviewed: Laboratory Last Values Urine pH (Auto) 5.5 04/12/24 13:55 Specific [place] (Auto) 1.015 04/12/24 13:55 Urine Protein (Auto) 0 mg/dL 04/12/24 13:55 Glucose (UA)(Auto) 1000 mg/dL 04/12/24 13:55 Urine Ketones (Auto) Negative 04/12/24 13:55 Urine Blood (Auto) 0 Herman/uL 04/12/24 13:55 Urine Nitrite (Auto) Negative 04/12/24 13:55 Urine Bilirubin (Auto) 0 mg/dL 04/12/24 13:55 Urine Urobilinogen (Auto) 0.2 mg/dL 04/12/24 13:55 Leukocyte Esterase (Auto) 0 Sedrick/uL 04/12/24 13:55 Collected: 02/23/24 Location: .LAB Received: 02/24/24 Diagnosis Urine: Negative for high-grade urothelial carcinoma; yeast present. See comment. COMMENT: Cellular specimen consisting of few single urothelial cells, squamous cells, mixed inflammatory cells and yeast forms consistent with Rachel species. Clinical History Personal history of malignant neoplasm of bladder Material Received Urine Gross Description Received is 18 cc of clear yellow fluid from which a ThinPrep slide is prepared. Assessment & Plan Assessment & Plan (1) Asthma-COPD overlap syndrome: Code(s): J44.9 - Chronic obstructive pulmonary disease, unspecified Category: Medical (2) JIMBO (obstructive sleep apnea): Code(s): G47.33 - Obstructive sleep apnea (adult) (pediatric) Category: Medical (3) Personal history of nicotine dependence: Comment: (onset 15yr,s 1/2-1ppd x 52yrs, 35pyh, quit 2020) Code(s): Z87.891 - Personal history of nicotine dependence Category: Medical (4) Gross hematuria: Code(s): R31.0 - Gross hematuria Category: Medical (5) Dysuria: Code(s): R30.0 - Dysuria Category: Medical (6) Abnormal urine cytology: Code(s): R82.89 - Other abnormal findings on cytological and histological examination of urine Category: Medical (7) Bladder mass: Code(s): N32.89 - Other specified disorders of bladder Category: Medical Plan Urine for cytology. CT urogram pending. Sched. Cysto TURBT, Pulmonary Clearance prior Orders: Orders AMB Urinalysis Automated Today Z13.9 - Encounter for screening, unspecified AMB Cystoscopy Today R30.0 - Dysuria, R31.0 - Gross hematuria, R82.89 - Other abnormal findings on cytological and histological examination of urine, Z85.51 - Personal history of malignant neoplasm of bladder Patient Instructions: The patient had an opportunity to ask questions regarding treatment plan. The patient expressed understanding and agreement with the above treatment plan. The patient is aware they should contact our office by phone for worsening of their current condition or the appearance of new symptoms. Compliance is encouraged with any medications and followup testing that is ordered. It is a privilege to be allowed the opportunity to participate in the urologic care of your patient. If you have any questions or concerns regarding treatment for the above conditions please do not hesitate to contact me. The office telephone contact is [phone]. This note is constructed in part using voice recognition software. While every effort has been made to ensure accuracy application developer errors may have been included. Yours sincerely, Abran Hayes MD Coding Level of Care Code Est Pt Level 4 (47557) Diagnoses Asthma-COPD overlap syndrome J44.9 JIMBO (obstructive sleep apnea) G47.33 Personal history of nicotine dependence Z87.891 Gross hematuria R31.0 Dysuria R30.0 Abnormal urine cytology R82.89 Bladder mass N32.89 CPT Codes Cystoscopy - CPT: [id number] ([id number])
--- OUTSIDE RECORDS SUMMARY | 2024-04-12 15:28 | XMS_ITS | Encounter Summary ---
Author Organization [employer] Address [address] [place] [address] Care Team Providers Care Oracle Iam Consultant Name Role Phone Flower High MD Primary Care Pro vider Reason for Visit * Reason Comments Med Refill Encounter Details Date Type Department Care Team ([facility] st Contact Info) Description 05/30/2023 Refill [facility] MEDICINE [address] [place] [address] Flower High MD [address] [place], [place] [phone] Chronic midline low back pain without sciatica [...] Description 04/26/2024 3:00 PM EDT Office Visit [facility] OPTOMETRY [address] [place] [address] Juno, Mabel, OD [address] [place] [address] documented as of this encounter Visit Diagnoses Diagnosis Chronic midline low back pain without sciatica documented in this encounter Additional Health Concerns Assessment Noted Time PHQ-9 Depression Total Score: 0 01/07/20 1:19 PM EST documented as of this encounter Care Teams Oracle Iam Consultant Relationship Specialty Start Date End Date Flower High MD [address] [place] [address] PCP - General Internal Medicine 07/19/22 documented as of this encounter
--- OUTSIDE RECORDS SUMMARY | 2024-04-12 15:28 | XMS_ITS | Clinical Summary ---
Author Organization [employer] Address [address] [place] [address] Care Team Providers Care Marine Biologist Name Role Phone Flower High MD Primary [...] MG/3ML nebulizer solutionIndicati ons:COPD with acute exacerbation ([facility]) Take 3 mL (1.25 mg) by nebulization every 6 (six) hours if needed for wheezing. 75 mL 3 024 Active Alcohol Swabs (Alcohol Prep) 70 % pads USE THREE TIMES DAILY DIRECTED 100 each 11 Active Blood Glucose Monitoring Suppl (FreeStyle [place] Lite) w/Device kitIndications:T ype 2 diabetes mellitus without complication, with long-term current use of insulin ([facility]) Use to test blood sugar bid dx [...] DAILY FOR 7 DAYS Active Continuous Glucose Analytics Lead (FreeStyle Erinn 2 Orgas) deviceIndication s:Diabetes due to underlying condition w oth circulatory comp ([facility]) Use as directed to monitor glucose ever 8 hours. 1 each Active Continuous Glucose Sensor (FreeStyle Erinn 2 Sensor) miscIndications: Diabetes due to underlying condition w oth circulatory comp ([facility]) Use as directed to monitor glucose ever 8 hours. Replace sensor every 14 days. 2 each Active glucose blood (FreeStyle Precision Mikel Test) test stripIndications :Diabetes due to underlying condition w oth circulatory comp ([facility]) Test blood sugar q 8 hours 100 [...] complication, with long-term current use of insulin ([facility]) Inject 18 Units under the skin at bedtime. 15 mL 2 Active pen needle 32G x 4 mm miscIndications: Type 2 diabetes mellitus without complication, with long-term current use of insulin ([facility]) Use as instructed 30 each Active FREESTYLE LITE test stripIndications :Type 2 diabetes mellitus without complication, with long-term current use of insulin ([facility]) TEST BLOOD SUGAR THREE TIMES DAILY DIRECTED [...] THE EVENING WITH MEALS Active Continuous Glucose Analytics Lead (FreeStyle Erinn 3 Orgas) deviceIndication s:Type 2 diabetes mellitus without complication, with long-term current use of insulin ([facility]) 1 each 3 times daily. As directed 1 each Active Continuous Glucose Sensor (FreeStyle Erinn 3 Sensor) miscIndications: Type 2 diabetes mellitus without complication, with long-term current use of insulin ([facility]) 1 each every 14 (fourteen) days. 2 each Active Aspirin Low Dose 81 MG EC tabletIndication s:Type 2 diabetes mellitus without complications ([facility]) TAKE 1 TABLET BY MOUTH EVERY EVENING 90 tablet 1 12/23/2 024 Active cyanocobalamin (Vitamin B-12) 1000 MCG tabletIndication s:Routine health maintenance TAKE 1 TABLET BY MOUTH EVERY EVENING 90 tablet 024 Active Tradjenta 5 MG tabletIndication s:Type 2 diabetes mellitus without complication, unspecified whether retirement insulin use (CMS/HCC) TAKE 1 TABLET BY [...] -Will monitor CBC today and refer to senior svp at next apt (anemia) Abnormal uterine bleeding 11/13/2022 Assessment & Plan (11/13/2022 7:01 AM EDT): Pt was seen at the [facility] last mo for AUB. Already referred by provider to student ministries director. Not gone yet. gave today information to [...] -pain is too intense to participate in [place] Health care maintenance 08/19/2022 Assessment & Plan [...] apt. -colonoscopy:Per pt done in 2020 at [facility]-- ---- requested today record to Abiola [...] 11/2022 -colonoscopy:Per pt done in 2020 at [facility]-- ---- requested today record to Abiola [...] 09/2022: microalb - neg. -EKG 09/2022 at [facility] - NSR, QTC 454, no ischemic changes, [...] of bladder ca-thinks saw last oncologist at [place] like 5 y ago -unsure if needed [...] of bladder ca-thinks saw last oncologist at [place] like 5 y ago -unsure if needed [...] -continue care w psychiatrist and PT-evita bain [facility] in this building -psych meds refilled by specialist Assessment & Plan (08/19/2022 5:41 PM EDT): Pt w hx of depression/anxiety and panic attacks Denies SI -continue care w psychiatrist and PT-evita bain [facility] clinic in this building -psych [...] -ophthalmology 10/2022 - mild non-proliferative diabetic retinopathy. 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/2023 -Cheese Pancake Roller: will refer at next apt Allergic rhinitis [...] Asthma/COPD Overlap syndrome Pt is following w editing computer publisher -Dr Morales -last note obtained on 02/2022 [...] med -advised pt to f w her editing computer publisher and I printed at last apt CT chest done in 2019 with abnormal findings -not mentioned in last pulm visit note from 02/2022 -pt will f w specialist about need to repeat image if not done before Assessment & Plan (08/19/2022 6:08 PM EDT): Asthma/COPD Overlap syndrome Pt is following w editing computer publisher -Dr Morales -last note obtained on 02/2022 [...] ED -advised pt to f w her editing computer publisher and I printed today CT chest done [...] mild JIMBO per pulm note -f w editing computer publisher who referred back x sleep studies -pd to have test done -DELISA Luu gave info to pt to call to reschedule apt Assessment & Plan (08/19/2022 5:30 PM EDT): Pt has JIMBO-uses CPAP at night sleep study in 2018 : mild JIMBO per pulm note -f w editing computer publisher who referred back x sleep studies -pd [...] Encounters Date Type Department Care Team Description 04/12/2024 Telephone [facility] [address] [place] [phone] Jeni Byrne research and development director 04/07/2024 Refill [facility] [address] [place] [address] Meredith Srinivasan MD Chronic midline low back pain without sciatica 04/04/2024 Refill [facility] [address] [place] [address] Flower High MD 03/15/2024 Refill [facility] [address] [place] [address] Flower High MD 02/23/2024 Orders Only [facility] [address] [place] [address] Flower High MD 02/17/2024 Refill [facility] [address] [place] [address] J Carlos Sin MD Primary hypertension 02/13/2024 Refill [facility] [address] [place] [address] Flower High MD 02/13/2024 Refill [facility] [address] [place] [address] J Carlos Sin MD Routine health maintenance; Type 2 diabetes mellitus without complication, unspecified whether retirement insulin use ([facility]) 02/09/2024 Refill [facility] [address] [place], [place] [phone] Flower High MD Type 2 diabetes mellitus without complications (CMS/HCC) 02/04/2024 Refill [facility] [address] [place] [address] Katie Preciado, Cedrick Type 2 diabetes mellitus without complication, with long-term current use of insulin ([facility]) (Primary Dx) 02/04/2024 Refill [facility] [address] [place] [address] Flower High MD Chronic midline low back pain without sciatica 02/02/2024 Travel from Last 3 Months Immunizations Name Administration Dates Next Due Hep A, Adult 09/14/2019,,02/09/2013,10/06 Hep B, adult 09/14/2019, 0,11/23/2008,11/17,10/06/2000 Influenza injectable [...] 04/26/2024 3:00 PM EDT Office Visit [facility] [address] [place], [place] [phone] Juno, Mabel, OD [address] [place] [address] Health Maintenance Due Date Last Done Comments [...] complication, with long-term current use of insulin ([facility]) 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 Age/Sex: 73/F ? : 1950 Unit#: [id number] ?? Attend Dr: Abran Hayes MD ?Re02/23/24 ?Status: DEP REF ? Location: .LAB ?Disch: ? ----- ------- SPEC : [id number] ?RECD: 02/24/24 ? STATUS: ??SOUT ? REQ NUM: [id number] ? HONEY: 02/23/24-1645 ? SUBM DR: Flower [...] Copies To: ?? Abran Hayes MD ?? [facility] Urology Services ?? [address] ?? [place] [address] ?? [phone] ?? [email or web address] ?? Flower High MD ?? [address] ?? [place] [address] ?? [phone] ----- ------- Signed (signature on file) Germain Anguiano MD 02/25/24804 ? ----- ------- ? END OF REPORT ? us Flower Miranda MD LAB CYTOLOGY YURY BUTCHER Final Result [facility] [address] [place] [phone] * CT Lung Screening Low dose (01/30/2024 10:54 AM EST) Anatomical Region Laterality Modality Lung Computed Tomogra phy 01/30/2024 10:5 4 AM EST Narrative 03/17/2024 11:59 AM EST ? [facility] ?[address] ?[place] [address] ? CT Scan Report ? Signed ? Patient: Willie,Carole ?MR#: [id number] ? : 1950 ?Acct:[id number] ? Age/Sex: 73 / F ?ADM Date: 12/13/24 ? Loc: HO.CT ? Attending Dr: Cass Vega PA-C ? Ordering Physician: Cass Vega PA-C ?? Date of Service: 01/30/24 ?? Procedure(s): CT lung screening ?? Accession Number(s): [id number] ? cc: Cass Vega PA-C; Flower High MD ? Report Number: ?? [id number]: Total DLP = ?? 48.00 mGy-cm ?? [...] for CT CHEST LOW DOSE CANCER SCREENING ([id number]) ?? can be placed. ? Electronically signed by: ??Conner Bernstein MD ??03/17/2024 11:57 AM EST ? Dictated By: ?Conner Bernstein ? Signed By: ?<Electronically signed by Conner Bernstein in OV> ? 03/17/24 1157 ? DD/ 1054 ? TD/TT: 01/30/24 1124 ? Software Performance Engineer: ? Procedure Note Norm, Image - 03/17/[address] [place] [address] [address] Scan Report Signed Patient: Sherrie Tapia#: [id number] : 1950cct:[id number] Age/Sex: 73 / FADM Date: 01/30/24 Loc: HO.CT Attending Dr: Cass Vega PA-C Ordering Physician: Cass Vega PA-C Date of Service: 01/30/24 Procedure(s): CT lung screening Accession Number(s): [id number] cc: Cass Vega PA-C; Flower High MD Report Number: [id number]: Total DLP = 48.00 mGy-cm EXAMINATION: CT [...] for CT CHEST LOW DOSE CANCER SCREENING ([id number]) can be placed. Electronically signed by: Conner Bernstein MD 03/17/2024 11:57 AM [facility] Dictated By: Conner Bernstein Signed By: <Electronically signed by Conner Bernstein in OV> 03/17/24 1157 DD/ 1054 TD/TT: 01/30/24 1124 Software Performance Engineer: Result [facility] External Provider IMG CT PROCEDURES Edited Result - Final * Albumin, Random Urine W/Creatinine (01/06/2024 11:28 AM EST) Creatinine, Urine 162.24 mg/dL [facility] Microalbumin Urine 8.0 mg/L [facility] Microalbum Creatinine Ratio Ur 4.9 <30 ug/mg cr [facility] Comment:Albumin/Creatinine R atio Reference Ranges: Normal: < 30 ug/mg creatinine Microalbuminuria: 30 - 300 ug/mg creatinineClinical Albuminuria: > 300 ug/mg creatinine Urine (Urine, Random) 01/06/2024 11:28 AM EST 01/06/2024 1:08 PM EST Result [facility] Flower Miranda MD LAB URINE ORDERAB LES Final Result Performing Organization Address City/[facility]/ZIP Co de Phone Number [facility] [address] [place] [phone] * Hepatitis C Antibody with Reflex to HCV, RNA, Quantitative, Real-Time PCR (01/06/2024 11:28 AM EST) Hepatitis C Antibody Nonreactive Nonreactive [facility] Comment:Antibodies to HCV no t detected; does not exclude early acuteHCV infection. Blood Venous blood specimen / Unknown 01/06/2024 11:28 AM EST 01/06/2024 1:08 PM EST Flower Miranda MD LAB BLOOD ORDERAB LES Final Result Performing Organization Address City/[facility]/ZIP Co de Phone Number [facility] [address] [place] [phone] * (ABNORMAL) Hemoglobin A1c (01/06/2024 11:28 AM EST) Hemoglobin A1c 6.7(H) <6.0 % [facility] Comment:Hemoglobin A1C Refer ence Range Adults: 4.8 - 6.0 % Non diabetic: < 6.0 % Goal: < 7.0 %Additional Action Suggested: > 8.0 %Note: Hemoglobin A1c results are invalid for patients with abnormal amounts of HbF. Blood transfusions may impact the HbA1c concentration in the patient sample. Estimated Average Glucose 146 mg/dL [facility] Comment:eAG = Estimated ave rage glucose which is %A1C expressed asaverage glucose, using the formula of the U8E-PboiqvlDgxmncw Glucose study (ADAG), Diabetes Care, Vol.31,#8,Sep. 2007 Blood Venous blood specimen / Unknown 01/06/2024 11:28 AM EST 01/06/2024 1:08 PM EST us Flower Miranda MD LAB BLOOD ORDERAB LES Final Result [facility] [address] [place] [phone] * (ABNORMAL) Lipid Panel, Standard (01/06/2024 11:28 AM EST) Triglycerides 443(H) <150 mg/dL [facility] Comment:Slight Lipemia.James able Triglyceride: less than 150 mg/dLBorderline High Triglyceride 150-199 mg/dLHigh Triglyceride: 200-499 mg/dLVery High Triglyceride: greater than or equal to 5OO mg/dL Cholesterol 198 <200 mg/dL [facility] Comment:Desirable Cholestero l: less than 200 mg/dLBorderline High Cholesterol: 200-239 mg/dLHigh Cholesterol: greater than 239 mg/dL LDL Cholesterol Calculated TNP <100 mg/dL [facility] Comment:Unable to calculate the LDL. The formula of Friedwald,Kraus, and Latoya is only valid if the triglycerides areless than 400 mg/dl. HDL Cholesterol 66 >40 mg/dL [facility] Comment:Desirable HDL: great er than 40 mg/dL Note: This HDL assay may give artificially low results in patients with liver disease. Blood Venous blood specimen / Unknown 01/06/2024 11:28 AM EST 01/06/2024 1:13 PM EST us Flower Miranda MD LAB BLOOD ORDERAB LES Final Result [facility] [address] [facility] [place] [phone] [phone] * BI Mammogram Screening Tomosynthesis Bilateral (12/25/2023 12:35 PM EST) Anatomical Region Laterality Modality Breast Bilateral Mammography 12/25/2023 12:3 5 PM EST Narrative 01/02/2024 4:11 PM EST ? [facility] ? [address] ?[place] [address] ? Mammography Report ? Signed ? Patient: Willie,Carole ?MR#: [id number] ? : 1950 ?Acct:[id number] ? Age/Sex: 72 / F ?ADM Date: 12/25/23 ? Loc: HO.MAMMO ? Attending Dr: Flower Miranda MD ? Ordering Physician: Flower High MD ?Re ?? sults: 2Benign Findings ? Date of Service: 12/25/23 ?Follow Up: 1 Year From Orig ?? inal Mammogram ? Procedure(s): MM tomosynthesis screening BI ?? Accession Number(s): [id number] ? cc: Flower High MD ? EXAMINATION: ?? MM SCREENING DIGITAL [...] ? Signed By: ?<Electronically signed by Fabiana Casiano DO in OV> ? 01/02/24 1608 ? DD/ 1235 ? TD/TT: 12/25/23 1253 ? Software Performance Engineer: ? Procedure Note Norm, Image - 01/02/2024 [facility] [address] [place] [address] Dr. [place], [place] [address] Mammography Report Signed Patient: Sherrie Tapia#: [id number] : 3Acct:[id number] Age/Sex: 72 / FADM Date: 12/25/23 Loc: HO.MAMMO Attending Dr: Flower Miranda MD Ordering Physician: Flower High sults: 2Benign Findings Date of Service: 12/25/23Follow Up: 1 Year From Orig inal Mammogram Procedure(s): MM tomosynthesis screening BI Accession Number(s): [id number] cc: Flower High MD EXAMINATION: MM SCREENING [...] by: Fabiana Casiano DO 01/02/2024 04:08 PM [facility] Dictated By: Fabiana Casiano DO Signed By: <Electronically signed by Fabiana Casiano DO in OV> 01/02/24 1608 DD/ 1235 TD/TT: 12/25/23 1253 Software Performance Engineer: us Flower Miranda MD IMG BI PROCEDURES Final Result * Referral to Podiatry (09/29/2023) Flower Miranda MD OUTPATIENT REFERR AL ORDERABLES Final Result * Hm Colonoscopy (06/16/2012) Colonoscopy Normal Normal Historical Provider HEALTH MAINTENANCE Final Result from Last 3 Months or Most Recently Relevant to Health Maintenance [facility] Care Teams Marine Biologist Relationship Specialty Start Date End Date Flower High MD [address] [place] [phone] PCP - General Internal Medicine 07/19/22
--- OUTSIDE RECORDS SUMMARY | 2024-04-12 15:28 | XMS_ITS | Encounter Summary ---
Author Organization [employer] Address [address] [place] [address] Care Team Providers Care Supervisor Treating And Pumping Name Role Phone Flower High MD Primary Care Pro vider Reason for Visit * Reason Comments Med Refill Encounter Details Date Type Department Care Team ([facility] st Contact Info) Description 04/04/2024 Refill [facility] [address] [place] [address] Flower High MD [address] [place], [place] [phone] Social History Tobacco Use Types Packs/Day Years [...] Description 04/26/2024 3:00 PM EDT Office Visit [facility] OPT[facility] [address], [place] [phone] Mabel Fraire, OD [address] [place] [address] documented as of this encounter Visit Diagnoses Not on filedocumented in this encounter Additional Health Concerns Assessment Noted Time PHQ-9 Depression Total Score: 20 024 8:46 AM EDT documented as of this encounter Care Teams Supervisor Treating And Pumping Relationship Specialty Start Date End Date Flower High MD [address] [place], [place] [phone] PCP - General Internal Medicine 07/19/22 documented as of this encounter
--- OUTSIDE RECORDS SUMMARY | 2024-04-12 15:28 | XMS_ITS | Encounter Summary ---
Author Organization [employer] Address [address] [facility] 7t [place] [address] Care Team Providers Care Lease Administrator Name Role Phone Claudette Lorenzo Primary Care Provider [phone] Flower High MD Primary Care Pro vider Encounter Details Date Type Department Care Team (Late Contact Info) Description 05/06/2022 Orders Only [facility] [address] [place] [address] Karlene Dow LPN Social History Tobacco Use [...] Description 04/26/2024 3:00 PM EDT Office Visit [facility] [address] [place] [address] Mabel Fraire, OD [address] [place] [address] documented as of this encounter Visit Diagnoses Not on filedocumented in this encounter Care Teams Lease Administrator Relationship Specialty Start Date End Date Claudette Lorenzo FNP [address] [place] [address] PCP - General Family Medicine 10/11/21 07/18/22 Flower High MD [address] [place] [phone] PCP - General Internal Medicine 07/19/22 documented as of this encounter
--- OUTSIDE RECORDS SUMMARY | 2024-04-12 15:28 | XMS_ITS | Encounter Summary ---
Author Organization [employer] Address [address] [place] [address] Care Team Providers Care Price Lister Name Role Phone Flower High MD Primary Care Pro vider Reason for Visit * Reason Comments Med Refill Encounter Details Date Type Department Care Team ([facility] st Contact Info) Description 04/07/2024 Refill [facility] [address] [place] [address] Meredith Srinivasan MD [address] [place], [place] [phone] Chronic midline low back pain without sciatica [...] Description 04/26/2024 3:00 PM EDT Office Visit [facility] OPTOMETRY [address] [place] [address] Mabel Fraire, OD [address] [place] [address] documented as of this encounter Visit Diagnoses Diagnosis Chronic midline low back pain without sciatica documented in this encounter Additional Health Concerns Assessment Noted Time PHQ-9 Depression Total Score: 20 024 8:46 AM EDT documented as of this encounter Care Teams Price Lister Relationship Specialty Start Date End Date Flower High MD [address] [place] [address] PCP - General Internal Medicine 07/19/22 documented as of this encounter
--- OUTSIDE RECORDS SUMMARY | 2024-04-12 15:28 | XMS_ITS | Encounter Summary ---
Author Organization [employer] Address [address] [place] [address] Care Team Providers Care Lithographic Artist Name Role Phone Flower High MD Primary Care Pro vider Encounter Details Date Type Department Care Team (Late st Contact Info) Description 03/05/2023 Orders Only [facility] [address] [place], [place] [phone] Flower High MD [address] [place] [address] Social History Tobacco Use Types Packs/Day Years [...] Description 04/26/2024 3:00 PM EDT Office Visit [facility] OPTOMETRY [address] [place] [address] Juno, Mabel, OD [address] [place] [address] documented as of this encounter Visit Diagnoses Not on filedocumented in this encounter Additional Health Concerns Assessment Noted Time PHQ-9 Depression Total Score: 0 01/07/20 23 1:19 PM EST documented as of this encounter Care Teams Lithographic Artist Relationship Specialty Start Date End Date Flower High MD [address] [place] [address] PCP - General Internal Medicine 07/19/22 documented as of this encounter
--- OUTSIDE RECORDS SUMMARY | 2024-04-12 15:28 | XMS_ITS | Encounter Summary ---
Author Organization [employer] Address [address] [place] [address] Care Team Providers Care Machine Fancy Stitcher Name Role Phone Flower High MD Primary Care Pro vider Reason for Visit * Reason Onset Date Comments Prior Authorization 04/12/2024 Encounter Details Date Type Department Care Team ([facility] st Contact Info) Description 04/12/2024 Telephone [facility] MED[facility]INE [address] [place] [address] Jeni Byrne, RN [address] [place] [address] Prior Authorization Social History Tobacco Use Types Packs/Day Years [...] AM EDT documented as of this encounter Miscellaneous Notes * Telephone Encounter - Jeni Byrne RN - 04/12/2024 1:21 PM EST Received request for PA for Petro[employer] 3 reader and sensors. PA packet generated and placed on prescriber's desk. Pending signature. documented in this encounter Plan of Treatment Upcoming Encounters Date Type Department Care Team (Late st Contact Info) Description 04/26/2024 3:00 PM EDT Office Visit [facility] OPTOMETRY [address] [place] [address] Juno, Mabel, OD [address] [place] [address] documented as of this encounter Visit Diagnoses Not on filedocumented in this encounter Additional Health Concerns Assessment Noted Time PHQ-9 Depression Total Score: 20 024 8:46 AM EDT documented as of this encounter Care Teams Machine Fancy Stitcher Relationship Specialty Start Date End Date Flower High MD [address] [place] [address] PCP - General Internal Medicine 07/19/22 documented as of this encounter
--- OUTSIDE RECORDS SUMMARY | 2024-04-12 15:28 | XMS_ITS | Encounter Summary ---
Author Organization [employer] Address [address] [facility] [place] [address] Care Team Providers Care Clinical Trial Associate Name Role Phone Flower High MD Primary Care Pro vider Reason for Visit * Reason Comments Med Refill Encounter Details Date Type Department Care Team ([facility] st Contact Info) Description 03/15/2024 Refill [facility] MEDICINE [address] [place] [address] Flower High MD [address] [place], [place] [phone] Social History Tobacco Use Types Packs/Day Years [...] Description 04/26/2024 3:00 PM EDT Office Visit [facility] OPTOMETRY [address] [place], [place] [phone] Mabel Fraire, OD [address] [place] [address] documented as of this encounter Visit Diagnoses Not on filedocumented in this encounter Additional Health Concerns Assessment Noted Time PHQ-9 Depression Total Score: 20 024 8:46 AM EDT documented as of this encounter Care Teams Clinical Trial Associate Relationship Specialty Start Date End Date Flower High MD [address] [place], [place] [phone] PCP - General Internal Medicine 07/19/22 documented as of this encounter
--- OUTSIDE RECORDS SUMMARY | 2024-04-12 15:28 | XMS_ITS | Encounter Summary ---
Author Organization [email or web address] Address [address] [facility] [address] [place] [address] Care Team Providers Care Radiological Health Specialist Name Role Phone Flower High MD Primary Care Pro vider Reason for Visit * Reason Comments Med Refill Encounter Details Date Type Department Care Team ([facility] st Contact Info) Description 01/09/2023 Refill [facility] MEDICINE [address] [place] [address] Flower High MD [address] [place], [place] [phone] Type 2 diabetes mellitus without complication, unspecified whether parts counterman insulin use ([facility]) Social History Tobacco Use Types Packs/Day [...] the past 12 months, has t he [employer], gas, oil or water company threatened to [...] Description 04/26/2024 3:00 PM EDT Office Visit [facility] OPTOMETRY [address] [place], [place] [phone] Mabel Fraire OD [address] [place] [address] documented as of this encounter Visit Diagnoses Diagnosis Type 2 diabetes mellitus without complication, unspecified whether senior care insulin use ([facility]) documented in this encounter Additional Health Concerns Assessment Noted Time PHQ-9 Depression Total Score: 0 01/07/20 23 1:19 PM EST documented as of this encounter Care Teams Radiological Health Specialist Relationship Specialty Start Date End Date Flower High MD [address] [place], [place] [phone] PCP - General Internal Medicine 07/19/22 documented as of this encounter
--- OUTSIDE RECORDS SUMMARY | 2024-04-12 15:28 | XMS_ITS | Encounter Summary ---
Author Organization [employer] Address [address] [place] [address] Care Team Providers Care Bar Finish Operator Name Role Phone Flower High MD Primary Care Pro vider Reason for Visit * Reason Onset Date Comments Med Refill No Show 09/17/2022 Encounter Details Date Type Department Care Team (Late st Contact Info) Description 09/17/2022 Refill [facility] MEDICINE [address] [place] [address] Claudette Lorenzo, VP [employer] [address] [place] [address] Allergic rhinitis, unspecified seasonality, unspecified trigger Social [...] 04/26/2024 3:00 PM EDT Office Visit [facility] OPTOMETRY [address] [place] [address] Mabel Fraire, OD [address] [place] [address] documented as of this encounter Visit Diagnoses Diagnosis Allergic rhinitis, unspecified seasonality, unspecified trigger documented in this encounter Care Teams Bar Finish Operator Relationship Specialty Start Date End Date Flower High MD [address] [place] [address] PCP - General Internal Medicine 07/19/22 documented as of this encounter
--- OUTSIDE RECORDS SUMMARY | 2024-04-12 15:28 | XMS_ITS | Encounter Summary ---
Author Organization [employer] Address [address] [place] [address] Care Team Providers Care Vault Person Name Role Phone Flower High MD Primary Care Pro vider Reason for Visit * Reason Comments Dental Exam comp Encounter Details Date Type Department Care Team ([facility] st Contact Info) Description 04/17/2023 10:30 AM EST Office Visit [facility] ADULT DENTAL [address] [place] [address] Pool Mathew, DMD [address] [place], [place] [phone] Social History Tobacco Use Types Packs/Day Years [...] 3:00 PM EDT Office Visit [facility] OPTOMETRY [address] [place], [place] [phone] Juno, Mabel, OD [address] [place] [address] Scheduled Orders Name Type Priority Associated Diagnoses [...] documented as of this encounter Care Teams Vault Person Relationship Specialty Start Date End Date Flower High MD [address] [place] [phone] PCP - General Internal Medicine 07/19/22 documented as of this encounter
--- OUTSIDE RECORDS SUMMARY | 2024-04-12 15:28 | XMS_ITS | Encounter Summary ---
Author Organization [employer] Address [address] [facility] [address] [place] [address] Care Team Providers Care Railroad Car Loader Name Role Phone Claudette Lorenzo Primary Care Provider [phone] Flower High MD Primary Care Pro vider Encounter Details Date Type Department Care Team (Late Contact Info) Description 03/18/2022 Orders Only [facility] MEDICINE [address] [place] [address] Karlene Dow LPN Social History Tobacco Use [...] Description 04/26/2024 3:00 PM EDT Office Visit [facility] OPTOMETRY [address] [place] [address] Mabel Fraire, OD [address] [place] [address] documented as of this encounter Visit Diagnoses Not on filedocumented in this encounter Care Teams Railroad Car Loader Relationship Specialty Start Date End Date Claudette Lorenzo FNP [address] [place] [address] PCP - General Family Medicine 10/11/21 07/18/22 Flower High MD [address] [place] [id number] PCP - General Internal Medicine 07/19/22 documented as of this encounter
== END 2024-04-12 14:45 | disposition home or self-care (01) ==
PROVIDERS: PCP Student in an Organized Health Care Education/Training Program; Visit Provider Urology
DX: N32.89 Other specified disorders of bladder (principal); Z85.51 Personal history of malignant neoplasm of bladder; G47.33 Obstructive sleep apnea (adult) (pediatric); Z87.891 Personal history of nicotine dependence; R30.0 Dysuria; R82.89 Other abnormal findings on cytological and histological examination of urine; J44.9 Chronic obstructive pulmonary disease, unspecified
CPT/HCPCS: 52000

== ENCOUNTER 2024-04-14 15:32 | Outpatient (REF) | payer OTHER, SELFPAY ==
--- NOTE | ~2024-04-14 | CT_ITS ---
CLINICAL HISTORY: R82.89 - Other abnormal findings ON URINE CYTOLOGY CT abdomen and pelvis with and without contrast Comparison: None Findings: The lung bases are clear. There is a tiny right renal cyst. No bowel obstruction, pneumoperitoneum, or pneumatosis. There is colonic diverticulosis without evidence of diverticulitis. Multiple small irregular structures are seen within the urinary bladder all of which appear to be attached to the mucosal surface. The bones are intact. 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 Clinical evaluation of the urinary bladder recommended. This document has been electronically signed by: Yordy Lacey MD on 04/15/2024 12:17:03
[2024-04-14] MEDS: iohexoL 350 MG/ML 100 ML INFUS..BTL IV (15:57)
--- OUTSIDE RECORDS SUMMARY | 2024-04-14 19:05 | XMS_ITS | Encounter Summary ---
Author Organization [employer] Address [address] [place] [address] Care Team Providers Care Real Estate Analyst Name Role Phone Flower High MD Primary Care Pro vider Reason for Visit * Reason Comments Med Refill Encounter Details Date Type Department Care Team ([facility] st Contact Info) Description 04/07/2024 Refill [facility] MEDICINE [address] [place] [address] Meredith Srinivasan MD [address] [place], [place] [phone] Chronic midline low back pain without sciatica [...] Description 04/26/2024 3:00 PM EDT Office Visit [facility] OPTOMETRY [address] [place] [address] Mabel Fraire, OD [address] [place] [address] documented as of this encounter Visit Diagnoses Diagnosis Chronic midline low back pain without sciatica documented in this encounter Additional Health Concerns Assessment Noted Time PHQ-9 Depression Total Score: 20 024 8:46 AM EDT documented as of this encounter Care Teams Real Estate Analyst Relationship Specialty Start Date End Date Flower High MD [address] [place] [address] PCP - General Internal Medicine 07/19/22 documented as of this encounter
--- OUTSIDE RECORDS SUMMARY | 2024-04-14 19:05 | XMS_ITS | Clinical Summary ---
Author Organization [employer] Address [address] [place] [address] Care Team Providers Care Weaver Hand Name Role Phone Flower High MD Primary [...] MG/3ML nebulizer solutionIndicati ons:COPD with acute exacerbation ([facility]) Take 3 mL (1.25 mg) by nebulization every 6 (six) hours if needed for wheezing. 75 mL 3 024 Active Alcohol Swabs (Alcohol Prep) 70 % pads USE THREE TIMES DAILY DIRECTED 100 each 11 Active Blood Glucose Monitoring Suppl (FreeStyle Tignall Lite) w/Device kitIndications:T ype 2 diabetes mellitus without complication, with long-term current use of insulin ([facility]) Use to test blood sugar bid dx [...] DAILY FOR 7 DAYS Active Continuous Glucose Senior Web Developer (FreeStyle Erinn 2 Peterman) deviceIndication s:Diabetes due to underlying condition w oth circulatory comp ([facility]) Use as directed to monitor glucose ever 8 hours. 1 each Active Continuous Glucose Sensor (FreeStyle Erinn 2 Sensor) miscIndications: Diabetes due to underlying condition w oth circulatory comp ([facility]) Use as directed to monitor glucose ever 8 hours. Replace sensor every 14 days. 2 each Active glucose blood (FreeStyle Precision Mikel Test) test stripIndications :Diabetes due to underlying condition w oth circulatory comp ([facility]) Test blood sugar q 8 hours 100 [...] complication, with long-term current use of insulin ([facility]) Inject 18 Units under the skin at bedtime. 15 mL 2 Active pen needle 32G x 4 mm miscIndications: Type 2 diabetes mellitus without complication, with long-term current use of insulin ([facility]) Use as instructed 30 each Active FREESTYLE LITE test stripIndications :Type 2 diabetes mellitus without complication, with long-term current use of insulin ([facility]) TEST BLOOD SUGAR THREE TIMES DAILY DIRECTED 100 strip 11 Active Easy Touch Lancets 33G/Twist misc TEST BLOOD SUGAR 3 TIMES A DAY DIRECTED 100 each Active Ventolin HFA 108 (90 Base) MCG/ACT inhaler Inhale 1-2 puffs every 4 (four) hours if needed for shortness of breath or wheezing. 18 g 2 Active Oyster Shell Calcium 500 MG tablet TAKE 1 TABLET BY MOUTH TWICE DAILY IN THE MORNING AND IN THE EVENING WITH MEALS Active Continuous Glucose Senior Web Developer (FreeStyle Erinn 3 Peterman) deviceIndication s:Type 2 diabetes mellitus without complication, with long-term current use of insulin ([facility]) 1 each 3 times daily. As directed 1 each Active Continuous Glucose Sensor (FreeStyle Erinn 3 Sensor) miscIndications: Type 2 diabetes mellitus without complication, with long-term current use of insulin ([facility]) 1 each every 14 (fourteen) days. 2 each Active Aspirin Low Dose 81 MG EC tabletIndication s:Type 2 diabetes mellitus without complications ([facility]) TAKE 1 TABLET BY MOUTH EVERY EVENING 90 tablet 1 Active cyanocobalamin (Vitamin B-12) 1000 MCG tabletIndication s:Routine health maintenance TAKE 1 TABLET BY MOUTH EVERY EVENING 90 tablet Active Tradjenta 5 MG tabletIndication s:Type 2 diabetes mellitus without complication, unspecified whether longterm insulin use (CMS/HCC) TAKE 1 TABLET BY MOUTH EVERY MORNING 90 tablet Active metFORMIN (Glucophage) 500 MG tablet TAKE 1 TABLET BY MOUTH EVERY MORNING and TAKE 2 TABLETS BY MOUTH EVERY DAY IN THE EVENING 270 tablet Active glipiZIDE XL (Glucotrol XL) 10 MG 24 hr tablet TAKE 1 TABLET BY MOUTH EVERY MORNING WITH BREAKFAST 90 tablet Active pantoprazole (ProtoNix) 40 MG EC tablet TAKE 1 TABLET BY MOUTH EVERY MORNING 90 tablet Active lisinopril-hydro CHLOROthiazide 20-12.5 MG tabletIndication s:Primary hypertension TAKE 1 TABLET BY MOUTH EVERY MORNING 90 tablet Active rosuvastatin (Crestor) 40 MG tablet TAKE 1 TABLET BY MOUTH AT BEDTIME 90 tablet 1 025 Active ezetimibe (Zetia) 10 MG tablet TAKE 1 TABLET BY MOUTH EVERY MORNING 90 tablet 1 025 Active gabapentin (Neurontin) 300 MG capsuleIndicatio ns:Chronic midline low back pain without sciatica TAKE 1 CAPSULE BY MOUTH THREE TIMES DAILY IN THE MORNING, EVENING, AND BEDTIME 90 capsule 1 025 Active rosuvastatin (Crestor) 40 MG tablet TAKE 1 TABLET BY MOUTH AT BEDTIME 90 tablet 1 024 2024 Discontinued ezetimibe (Zetia) 10 MG tablet TAKE 1 TABLET BY MOUTH EVERY MORNING 90 tablet 1 024 2024 Discontinued gabapentin (Neurontin) 300 MG capsuleIndicatio ns:Chronic midline low back pain without sciatica TAKE 1 CAPSULE BY MOUTH THREE TIMES DAILY IN THE MORNING, EVENING, AND BEDTIME 90 capsule 1 024 2024 Discontinued Active Problems Problem [...] -Will monitor CBC today and refer to customer operations associate at next apt (anemia) Abnormal uterine bleeding 11/13/2022 Assessment & Plan (11/13/2022 7:01 AM EDT): Pt was seen at the [facility] last mo for AUB. Already referred by provider to supervisor sulfuric acid plant. Not gone yet. gave today information to [...] is too intense to participate in tx Health care maintenance 08/19/2022 Assessment & Plan (11/13/2022 6:56 AM EDT): -Menopause: 48 y of age -pap smear:Last record 09/2020: Neg -pt denies hx of abnormal pap smear -may consider to stop screening vs repeating at least one more and if neg to stop -if repeat would do x 2023 -MM 11/2021: BIRADS 2: Benign-annual screening -will refer at next apt x 11/2022 if not called by hospital to schedule apt. -colonoscopy:Per pt done in 2020 at [facility]-- ---- requested today record to Abiola [...] to stop -if repeat would do x 2023 -MM 11/2021: BIRADS 2: Benign-annual screening -will refer at next apt x 11/2022 -colonoscopy:Per pt done in 2020 at [facility]-- ---- requested today record to Abiola [...] 09/2022: microalb - neg. -EKG 09/2022 at [facility] - NSR, QTC 454, no ischemic changes, [...] of bladder ca-thinks saw last oncologist at [place] like 5 y ago -unsure if needed [...] of bladder ca-thinks saw last oncologist at [facility] 5 y ago -unsure if needed to [...] Denies SI -continue care w psychiatrist and PT-seems taya [facility] clinic in this building -psych meds refilled by specialist Assessment & Plan (08/19/2022 5:41 PM EDT): Pt w hx of depression/anxiety and panic attacks Denies SI -continue care w psychiatrist and PT-evita bain [facility] clinic in this building -psych meds refilled [...] -ophthalmology 10/2022 - mild non-proliferative diabetic retinopathy. 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 -Ceo & Board Director: will refer at next apt Allergic rhinitis [...] Asthma/COPD Overlap syndrome Pt is following w pediatric speech therapist -Dr Morales -last note obtained on 02/2022 [...] med -advised pt to f w her pediatric speech therapist and I printed at last apt CT chest done in 2019 with abnormal findings -not mentioned in last pulm visit note from 02/2022 -pt will f w specialist about need to repeat image if not done before Assessment & Plan (08/19/2022 6:08 PM EDT): Asthma/COPD Overlap syndrome Pt is following w pediatric speech therapist -Dr Morales -last note obtained on 02/2022 [...] ED -advised pt to f w her pediatric speech therapist and I printed today CT chest done [...] mild JIMBO per pulm note -f w pediatric speech therapist who referred back x sleep studies -pd to have test done -DELISA Luu gave info to pt to call to reschedule apt Assessment & Plan (08/19/2022 5:30 PM EDT): Pt has JIMBO-uses CPAP at night sleep study in 2018 : mild JIMBO per pulm note -f w pediatric speech therapist who referred back x sleep studies -pd [...] Encounters Date Type Department Care Team Description 04/13/2024 Refill [facility] MEDICINE [address] [facility] [place] [address] Meredith Srinivasan MD Chronic midline low back pain without sciatica 04/12/2024 Telephone [facility] [address] [facility] [place] [address] Jeni Byrne RNassistant art director 04/07/2024 Refill [facility] [address] [facility] [place] [address] Meredith Srinivasan MD Chronic midline low back pain without sciatica 04/04/2024 Refill C MEDICINE [address] [facility] [place] [address] Flower High MD 03/15/2024 Refill [facility] [address] [facility] [place] [address] Flower High MD 02/23/2024 Orders Only [facility] [address] [facility] [address] [address] Flower High MD 02/17/2024 Refill C MEDICINE [address] [facility] [place] [address] J Carlos Sin MD Primary hypertension 02/13/2024 Refill [facility] [address] [facility] [address] Flower High MD 02/13/2024 Refill [facility] [address] [place] [address] J Carlos Sin MD Routine health maintenance; Type 2 diabetes mellitus without complication, unspecified whether longterm insulin use (CMS/HCC) 02/09/2024 Refill [facility] MED & PEDS [address] [place], [place] [phone] Flower High MD Type 2 diabetes mellitus without complications (CMS/HCC) 02/04/2024 Refill [facility] MEDICINE [address] [facility] [address] Katie Preciado, Cedrick Type 2 diabetes mellitus without complication, with long-term current use of insulin (CMS/HCC) (Primary Dx) 02/04/2024 Refill [facility] MEDICINE [address] [place] [address] Flower High MD Chronic midline low back [...] 04/26/2024 3:00 PM EDT Office Visit [facility] OPTOMETRY [address] [place] [address] Mabel Fraire, OD [address] [place] [address] Health Maintenance Due Date Last Done Comments [...] complication, with long-term current use of insulin ([facility]) 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 Age/Sex: 73/F ? : 1950 Unit#: [id number] ?? Attend Dr: Abran Hayes MD ?Re02/23/24 ?Status: DEP REF ? [facility] ?Disch: ? ----- ------- SPEC : [id number] ?RECD: 02/24/24 ? STATUS: ??SOUT ? REQ NUM: [id number] ? HONEY: 02/23/24-164 ? SUBM DR: Flower High MD ENTERED: [...] Copies To: ?? Abran Hayes MD ?? [facility] ?? [address] ?? [place] [address] ?? [phone] ?? [email or web address] ?? Flower High MD ?? [address] [facility] ?? [place] [address] ?? [phone] ----- ------- Signed (signature on file) Germain Anguiano MD 02/25/24804 ? ----- ------- ? END OF REPORT ? us Flower Miranda MD LAB CYTOLOGY YURY BUTCHER Final Result [facility] [address] [facility] [place] [address] [phone] * CT Lung Screening Low dose (01/30/2024 10:54 AM EST) Anatomical Region Laterality Modality Lung Computed Tomogra phy 01/30/2024 10:5 4 AM EST Narrative 03/17/2024 11:59 AM EST ? [facility] ?[address] ?[place] [address] ? CT Scan Report ? Signed ? Patient: Willie,Carole ?MR#: [id number] ? : 1950 ?Acct:[id number] ? Age/Sex: 73 / F ?ADM Date: 01/30/24 ? Loc: HO.CT ? Attending Dr: Cass Vega PA-C ? Ordering Physician: Cass Vega PA-C ?? Date of Service: 01/30/24 ?? Procedure(s): CT lung screening ?? Accession Number(s): [id number] ? cc: Cass Vega PA-C; Flower High MD ? Report Number: ?? [id number]: Total DLP = ?? 48.00 mGy-cm ?? [...] for CT CHEST LOW DOSE CANCER SCREENING ([id number]) ?? can be placed. ? Electronically signed by: ??Conner Bernstein MD ??03/17/2024 11:57 AM EST ?? RP ? Dictated By: ?Conner Bernstein ? Signed By: ?<Electronically signed by Conner Bernstein in OV> ? 03/17/24 1157 ? DD/ 1054 ? TD/TT: 01/30/24 1124 ? Registered Radiographer: ? Procedure Note Norm, Image - 03/17/[address] [address] [address] Scan Report Signed Patient: Sherrie Tapia#: [id number] : 3Acct:[id number] Age/Sex: 73 / FADM Date: 01/30/24 Loc: HO.CT Attending Dr: Cass Vega PA-C Ordering Physician: Cass Vega PA-C Date of Service: 01/30/24 Procedure(s): CT lung screening Accession Number(s): [id number] cc: Cass Vega PA-C; Flower High MD Report Number: [id number]: Total DLP = 48.00 mGy-cm EXAMINATION: CT [...] for CT CHEST LOW DOSE CANCER SCREENING ([id number]) can be placed. Electronically signed by: Conner Bersntein MD 03/17/2024 11:57 AM EST Dictated By: Conner Bernstein Signed By: <Electronically signed by Conner Bernstein in OV> 03/17/24 1157 DD/ 1054 TD/TT: 01/30/24 1124 Registered Radiographer: [facility] External Provider IMG CT PROCEDURES Edited Result - Final * Albumin, Random Urine W/Creatinine (01/06/2024 11:28 AM EST) Creatinine, Urine 162.24 mg/dL [facility] Microalbumin Urine 8.0 mg/L [facility] Microalbum Creatinine Ratio Ur 4.9 <30 ug/mg cr [facility] Comment:Albumin/Creatinine R atio Reference Ranges: Normal: < 30 ug/mg creatinine Microalbuminuria: 30 - 300 ug/mg creatinineClinical Albuminuria: > 300 ug/mg creatinine Urine (Urine, Random) 01/06/2024 11:28 AM EST 01/06/2024 1:08 PM EST Flower Miranda MD LAB URINE ORDERAB LES Final Result [facility] [address] [place] [phone] * Hepatitis C Antibody with Reflex to HCV, RNA, Quantitative, Real-Time PCR (01/06/2024 11:28 AM EST) Hepatitis C Antibody Nonreactive Nonreactive [facility] Comment:Antibodies to HCV no t detected; does not exclude early acuteHCV infection. Blood Venous blood specimen / Unknown 01/06/2024 11:28 AM EST 01/06/2024 1:08 PM EST us Flower Miranda MD LAB BLOOD ORDERAB LES Final Result Performing Organization Address [facility]/ZIP Co de Phone Number [facility] [address] [place] [phone] * (ABNORMAL) Hemoglobin A1c (01/06/2024 11:28 AM EST) Hemoglobin A1c 6.7(H) <6.0 % [facility] Comment:Hemoglobin A1C Refer ence Range Adults: 4.8 - 6.0 % Non diabetic: < 6.0 % Goal: < 7.0 %Additional Action Suggested: > 8.0 %Note: Hemoglobin A1c results are invalid for patients with abnormal amounts of HbF. Blood transfusions may impact the HbA1c concentration in the patient sample. Estimated Average Glucose 146 mg/dL [facility] Comment:eAG = Estimated ave rage glucose which is %A1C expressed asaverage glucose, using the formula of the Q6K-LsaklrvLstlhjt Glucose study (ADAG), Diabetes Care, Vol.31,#8,Sep. 2007 Blood Venous blood specimen / Unknown 01/06/2024 11:28 AM EST 01/06/2024 1:08 PM EST us Flower Miranda MD LAB BLOOD ORDERAB LES Final Result Performing Organization Address [facility]/ZIP Co de Phone Number [facility] [address] [place] [phone] * (ABNORMAL) Lipid Panel, Standard (01/06/2024 11:28 AM EST) Triglycerides 443(H) <150 mg/dL [facility] Comment:Slight Lipemia.James able Triglyceride: less than 150 mg/dLBorderline High Triglyceride 150-199 mg/dLHigh Triglyceride: 200-499 mg/dLVery High Triglyceride: greater than or equal to 5OO mg/dL Cholesterol 198 <200 mg/dL [facility] Comment:Desirable Cholestero l: less than 200 mg/dLBorderline High Cholesterol: 200-239 mg/dLHigh Cholesterol: greater than 239 mg/dL LDL Cholesterol Calculated TNP <100 mg/dL [facility] Comment:Unable to calculate the LDL. The formula of Friedwald,Kraus, and Latoya is only valid if the triglycerides areless than 400 mg/dl. HDL Cholesterol 66 >40 mg/dL [facility] Comment:Desirable HDL: great er than 40 mg/dL Note: This HDL assay may give artificially low results in patients with liver disease. Blood Venous blood specimen / Unknown 01/06/2024 11:28 AM EST 01/06/2024 1:13 PM EST Flower Miranda MD LAB BLOOD ORDERAB LES Final Result [facility] [address] [place] [address] [phone] * BI Mammogram Screening Tomosynthesis Bilateral (12/25/2023 12:35 PM EST) Anatomical Region Laterality Modality Breast Bilateral Mammography 12/25/2023 12:3 5 PM EST Narrative 01/02/2024 4:11 PM EST ? [facility] [place] ? [address] ?[place] [address] ? Mammography Report ? Signed ? Patient: Willie,Carole ?MR#: [id number] ? : 1950 ?Acct:[id number] ? Age/Sex: 72 / F ?ADM Date: 11/07/24 ? Loc: HO.MAMMO ? Attending Dr: Flower Miranda MD ? Ordering Physician: Flower High MD ?Re ?? sults: 2Benign Findings ? Date of Service: 12/25/23 ?Follow Up: 1 Year From Orig ?? inal Mammogram ? Procedure(s): MM tomosynthesis screening BI ?? Accession Number(s): [id number] ? cc: Flower High MD ? EXAMINATION: [...] ??Fabiana Casiano DO ??01/02/2024 04:08 PM EST ?? RP ? Dictated By: ?Fabiana Casiano DO ? Signed By: ?<Electronically signed by Fabiana Casiano, DO in OV> ? 01/02/24 1608 ? DD/ 1235 ? TD/TT: 12/25/23 1253 ? Registered Radiographer: ? Procedure Note Norm, Image - 01/02/2024 [facility] [address] [place], [place] [address] Mammography Report Signed Patient: Sherrie Tapia#: [id number] : 3Acct:[id number] Age/Sex: 72 / FADM Date: 12/25/23 Loc: HO.MAMMO Attending Dr: Flower Miranda MD Ordering Physician: Flower High sults: 2Benign Findings Date of Service: 12/25/23Follow Up: 1 Year From Orig inal Mammogram Procedure(s): MM tomosynthesis screening BI Accession Number(s): [id number] cc: Flower High MD EXAMINATION: MM SCREENING [...] by: Fabiana Casiano DO 01/02/2024 04:08 PM [facility] Dictated By: Fabiana Casiano DO Signed By: <Electronically signed by Fabiana Casiano DO in OV> 01/02/24 1608 DD/ 1235 TD/TT: 12/25/23 1253 Registered Radiographer: us Flower Miranda MD IMG BI PROCEDURES Final Result * Referral to Podiatry (09/29/2023) Flower Miranda MD OUTPATIENT REFERR AL ORDERABLES Final Result * Colonoscopy (06/16/2012) Colonoscopy Normal Normal Historical Provider HEALTH MAINTENANCE Final Result from Last 3 Months or Most Recently Relevant to Health Maintenance Insurance [facility] ADULT Care Teams Weaver Hand Relationship Specialty Start Date End Date Flower High MD [address] [place] [phone] PCP - General Internal Medicine 07/19/22
--- OUTSIDE RECORDS SUMMARY | 2024-04-14 19:05 | XMS_ITS | Encounter Summary ---
Author Organization [employer] Address [address] [place] [address] Care Team Providers Care Pin Drafter Name Role Phone Flower High MD Primary Care Pro vider Reason for Visit * Reason Comments Med Refill Encounter Details Date Type Department Care Team ([facility] st Contact Info) Description 04/04/2024 Refill [facility] MEDICINE [address] [place] [address] Flower High MD [address] [place], [place] [phone] Social History Tobacco Use Types Packs/Day Years [...] 3:00 PM EDT Office Visit [facility] OPTOMETRY [address] [place], [place] [phone] Mabel Fraire, OD [address] [place] [address] documented as of this encounter Visit Diagnoses Not on filedocumented in this encounter Additional Health Concerns Assessment Noted Time PHQ-9 Depression Total Score: 20 024 8:46 AM EDT documented as of this encounter Care Teams Pin Drafter Relationship Specialty Start Date End Date Flower High MD [address] [place], [place] [phone] PCP - General Internal Medicine 07/19/22 documented as of this encounter
--- OUTSIDE RECORDS SUMMARY | 2024-04-14 19:05 | XMS_ITS | Encounter Summary ---
Author Organization [employer] Address [address] [place] [address] Care Team Providers Care Thermoscrew Operator Name Role Phone Flower High MD Primary Care Pro vider Encounter Details Date Type Department Care Team (Late st Contact Info) Description 03/05/2023 Orders Only [facility] [address] [place], [place] [phone] Flower High MD [address] [place] [address] Social History Tobacco Use Types Packs/Day Years [...] Description 04/26/2024 3:00 PM EDT Office Visit [facility] OPTOMETRY [address] [place] [address] Juno, Mabel, OD [address] [place] [address] documented as of this encounter Visit Diagnoses Not on filedocumented in this encounter Additional Health Concerns Assessment Noted Time PHQ-9 Depression Total Score: 0 01/07/20 23 1:19 PM EST documented as of this encounter Care Teams Thermoscrew Operator Relationship Specialty Start Date End Date Flower High MD [address] [place] [address] PCP - General Internal Medicine 07/19/22 documented as of this encounter
--- OUTSIDE RECORDS SUMMARY | 2024-04-14 19:05 | XMS_ITS | Encounter Summary ---
Author Organization [employer] Address [address] [place] [address] Care Team Providers Care Social Media Project Manager Name Role Phone Flower High MD Primary Care Pro vider Reason for Visit * Reason Comments Dental Exam comp Encounter Details Date Type Department Care Team ([facility] st Contact Info) Description 04/17/2023 10:30 AM EST Office Visit [facility] ADULT DENTAL [address] [place] [address] Pool Mathew, DMD [address] [place], [place] [phone] Social History Tobacco Use Types Packs/Day Years [...] Description 04/26/2024 3:00 PM EDT Office Visit [facility] OPTOMETRY [address] [place], [place] [phone] Juno, Mabel, OD [address] [place] [address] Scheduled Orders Name Type Priority Associated Diagnoses [...] documented as of this encounter Care Teams Social Media Project Manager Relationship Specialty Start Date End Date Flower High MD [address] [place] [phone] PCP - General Internal Medicine 07/19/22 documented as of this encounter
--- OUTSIDE RECORDS SUMMARY | 2024-04-14 19:05 | XMS_ITS | Encounter Summary ---
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 ([facility]) Social History Tobacco Use Types Packs/Day Years [...] the past 12 months, has t he [employer], gas, oil or water company threatened to [...] Description 04/26/2024 3:00 PM EDT Office Visit [facility] OPTOMETRY [address] [place], [place] [phone] Mabel Fraire OD 230 [place] [address] documented as of this encounter Visit Diagnoses Diagnosis Type 2 diabetes mellitus without complication, unspecified whether retirement insulin use ([facility]) documented in this encounter Additional Health Concerns Assessment Noted Time PHQ-9 Depression Total Score: 0 01/07/20 23 1:19 PM EST documented as of this encounter Care Teams Planisher Relationship Specialty Start Date End Date Flower High MD 230 [place], [place] [phone] PCP - General Internal Medicine 07/19/22 documented as of this encounter
--- OUTSIDE RECORDS SUMMARY | 2024-04-14 19:05 | XMS_ITS | Encounter Summary ---
Author Organization [employer] Address [address] [facility] 7t [place] [address] Care Team Providers Care Audio Visual Tech Name Role Phone Claudette Lorenzo Primary Care Provider [phone] Flower High MD Primary Care Pro vider Encounter Details Date Type Department Care Team (Late Contact Info) Description 03/18/2022 Orders Only [facility] MEDICINE 230 [place] [address] Karlene Dow LPN Social History Tobacco Use [...] Visit [facility] OPTOMETRY [address] [place] [address] Mabel Fraire, OD 230 [place] [address] documented as of this encounter Visit Diagnoses Not on filedocumented in this encounter Care Teams Audio Visual Tech Relationship Specialty Start Date End Date Claudette Lorenzo FNP 230 [place] [address] PCP - General Family Medicine 10/11/21 07/18/22 Flower High MD [address] [place] [address] PCP - General Internal Medicine 07/19/22 documented as of this encounter
--- OUTSIDE RECORDS SUMMARY | 2024-04-14 19:05 | XMS_ITS | Encounter Summary ---
Author Organization [employer] Address [address] 7t [place] [address] Care Team Providers Care Dumper Name Role Phone Flower High MD Primary Care Pro vider Reason for Visit * Reason Onset Date Comments Prior Authorization 04/12/2024 Encounter Details Date Type Department Care Team ([facility] st Contact Info) Description 04/12/2024 Telephone [facility] MEDICINE 230 [place] [address] Jeni Byrne, RN 230 [place] [address] Prior Authorization Social History Tobacco Use Types [...] encounter Miscellaneous Notes * Telephone Encounter - Ilene Oviedo RN - 04/14/2024 4:32 PM EST Signed PA packet for [employer] Erinn 3 reader and sensors faxed to [facility]. Confirmation received. * Telephone Encounter - Ilene Oviedo RN - 04/13/2024 3:17 PM EST Received denial from insurance [employer] for [employer]estyle Erinn 2 sensors/reader. However, nursing staffcompleted prior authorization on 04/12/24 for Freestyle Erinn 3. Will await that decision. * Telephone Encounter - Jeni Byrne RN - 04/12/2024 1:21 PM EST Received request for PA for Erinn 3 reader and sensors. PA packet generated and placed on prescriber's desk. Pending signature. documented in this encounter Plan of Treatment Upcoming Encounters Date Type Department Care Team (Late st Contact Info) Description 04/26/2024 3:00 PM EDT Office Visit [facility] OPTOMETRY [address] [place], [place] [phone] Mabel Fraire, OD 230 [place], [place] [phone] documented as of this encounter Visit Diagnoses Not on filedocumented in this encounter Additional Health Concerns Assessment Noted Time PHQ-9 Depression Total Score: 20 024 8:46 AM EDT documented as of this encounter Care Teams Dumper Relationship Specialty Start Date End Date Flower High MD 230 [place], [place] [phone] PCP - General Internal Medicine 07/19/22 documented as of this encounter
--- OUTSIDE RECORDS SUMMARY | 2024-04-14 19:05 | XMS_ITS | Encounter Summary ---
Author Organization [employer] Address [address] 7t [place] [address] Care Team Providers Care Artillery Or Naval Gunfire Observer Name Role Phone Flower High MD Primary Care Pro vider Reason for Visit * Reason Onset Date Comments Med Refill No Show 09/17/2022 Encounter Details Date Type Department Care Team (Late st Contact Info) Description 09/17/2022 Refill [facility] MEDICINE [address] [place] [address] Claudette Lorenzo, CORE DRILL OPERATOR [address] [place] [address] Allergic rhinitis, unspecified seasonality, unspecified trigger Social [...] Description 04/26/2024 3:00 PM EDT Office Visit [facility] OPTOMETRY [address] [place] [address] Mabel Fraire, OD 230 [place] [address] documented as of this encounter Visit Diagnoses Diagnosis Allergic rhinitis, unspecified seasonality, unspecified trigger documented in this encounter Care Teams Artillery Or Naval Gunfire Observer Relationship Specialty Start Date End Date Flower High MD 230 [place] [address] PCP - General Internal Medicine 07/19/22 documented as of this encounter
--- OUTSIDE RECORDS SUMMARY | 2024-04-14 19:05 | XMS_ITS | Encounter Summary ---
Author Organization [employer] Address [address] 7t [place] [address] Care Team Providers Care Court Of Appeals Judge Name Role Phone Flower High MD Primary Care Pro vider Reason for Visit * Reason Comments Med Refill Encounter Details Date Type Department Care Team ([facility] st Contact Info) Description 05/30/2023 Refill [facility] MEDICINE 230 [place] [address] Flower High MD 230 [place], [place] [phone] Chronic midline low back pain without sciatica [...] Description 04/26/2024 3:00 PM EDT Office Visit [facility] OPTOMETRY [address] [place] [address] Juno, Mabel, OD 230 [place] [address] documented as of this encounter Visit Diagnoses Diagnosis Chronic midline low back pain without sciatica documented in this encounter Additional Health Concerns Assessment Noted Time PHQ-9 Depression Total Score: 0 01/07/20 1:19 PM EST documented as of this encounter Care Teams Court Of Appeals Judge Relationship Specialty Start Date End Date Flower High MD 230 [place] [address] PCP - General Internal Medicine 07/19/22 documented as of this encounter
--- OUTSIDE RECORDS SUMMARY | 2024-04-14 19:05 | XMS_ITS | Encounter Summary ---
Author Organization [employer] Address [address] 7[address] [place] [address] Care Team Providers Care Wood Flooring Specialist Name Role Phone Flower High MD Primary Care Pro vider Reason for Visit * Reason Comments Med Refill Encounter Details Date Type Department Care Team ([facility] st Contact Info) Description 04/13/2024 Refill [facility] MED[facility]INE 230 [place] [address] Meredith Srinivasan MD 230 [place], [place] [phone] Chronic midline low back pain without sciatica [...] 3:00 PM EDT Office Visit [facility] OPTOMETRY [address] [place] [address] Mabel Fraire, OD 230 [place] [address] documented as of this encounter Visit Diagnoses Diagnosis Chronic midline low back pain without sciatica documented in this encounter Additional Health Concerns Assessment Noted Time PHQ-9 Depression Total Score: 20 024 8:46 AM EDT documented as of this encounter Care Teams Wood Flooring Specialist Relationship Specialty Start Date End Date Flower High MD 230 [place] [address] PCP - General Internal Medicine 07/19/22 documented as of this encounter
--- OUTSIDE RECORDS SUMMARY | 2024-04-14 19:05 | XMS_ITS | Encounter Summary ---
Author Organization [employer] Address [address] 7t [place] [address] Care Team Providers Care News Production Assistant Name Role Phone Flower High MD Primary Care Pro vider Reason for Visit * Reason Comments Med Refill Encounter Details Date Type Department Care Team ([facility] st Contact Info) Description 03/15/2024 Refill [facility] MEDICINE 230 [place] [address] Flower High MD 230 [place], [place] [phone] Social History Tobacco Use Types Packs/Day Years [...] 3:00 PM EDT Office Visit [facility] OPTOMETRY [address] [place], [place] [phone] Mabel Fraire, OD 230 [place] [address] documented as of this encounter Visit Diagnoses Not on filedocumented in this encounter Additional Health Concerns Assessment Noted Time PHQ-9 Depression Total Score: 20 024 8:46 AM EDT documented as of this encounter Care Teams News Production Assistant Relationship Specialty Start Date End Date Flower High MD 230 [place], [place] [phone] PCP - General Internal Medicine 07/19/22 documented as of this encounter
--- OUTSIDE RECORDS SUMMARY | 2024-04-14 19:05 | XMS_ITS | Encounter Summary ---
Author Organization [employer] Address [address] [facility] 7t [place] [address] Care Team Providers Care Biomass Facilitator Name Role Phone Claudette Lorenzo Primary Care Provider [phone] Flower High MD Primary Care Pro vider Encounter Details Date Type Department Care Team (Late Contact Info) Description 05/06/2022 Orders Only [facility] MEDICINE 230 [place] [address] Karlene Dow LPN Social History Tobacco Use [...] Description 04/26/2024 3:00 PM EDT Office Visit [facility] OPTOMETRY [address] [place] [address] Mabel Fraire, OD 230 [place] [address] documented as of this encounter Visit Diagnoses Not on filedocumented in this encounter Care Teams Biomass Facilitator Relationship Specialty Start Date End Date Claudette Lorenzo FNP 230 [place] [address] PCP - General Family Medicine 10/11/21 07/18/22 Flower High MD [address] [place] [address] PCP - General Internal Medicine 07/19/22 documented as of this encounter
[2024-04-15 06:13] LABS: Creatinine POC 0.9 mg/dL (0.5-1.4); GFR POC > 60
== END 2024-04-14 15:33 | disposition home or self-care (01) ==
LOC: HO.CT 15:32
PROVIDERS: Visit Provider Urology
DX: R82.89 Other abnormal findings on cytological and histological examination of urine (principal); R31.0 Gross hematuria; Z85.51 Personal history of malignant neoplasm of bladder
CPT/HCPCS: 74178; 82565; Q9967

== ENCOUNTER → 2024-04-14 15:34 | Outpatient (BNV) | payer OTHER, SELFPAY | PROVIDERS: Visit Provider Radiology Diagnostic Radiology | DX: R82.89 Other abnormal findings on cytological and histological examination of urine (principal) | CPT/HCPCS: 74178 ==

== ENCOUNTER 2024-05-10 15:18 | Outpatient (REF) | payer OTHER, SELFPAY ==
--- NOTE | ~2024-05-10 | XR_ITS ---
CLINICAL HISTORY: R06.00 - Dyspnea, unspecified 2 view chest x-ray Comparison: CR - XR CHEST 2V - 02/15/24 14:08 EST Findings: Triangular-shaped opacity of the right lower lung medially silhouetting the right side of the heart border and diaphragm. There is opacity of the left lung base. Heart size is normal. No acute fracture. IMPRESSION: Triangular-shaped opacity of the right lower lung could represent atelectasis of the right lower lobe. Chest x-ray follow-up is recommended to confirm resolution. Atelectasis/infiltrate of the left lung base. This document has been electronically signed by: Ariadna Montoya MD on 05/10/2024 17:19:01
[2024-05-10 17:14] LABS: Basophils Percent Auto 0.1 % (0-2); Eosinophils Percent Auto 0.1 % (0-4); Hematocrit 37.1 % (37.0-47.0); Hemoglobin 12.4 g/dl (12.0-16.0); Imm Gran Abs Auto 0.08 X10*3/uL (0.00-0.03); Imm Gran Pct Auto 0.8 % (0.0-0.4); Lymphocytes Absolute Auto 0.4 X10*3/uL (1.2-4.9); Lymphocytes Percent Auto 4.4 % (20-40); MANUAL DIFF FLAG SCAN; Mean Corpuscular HGB Conc 33.4 g/dl (31.0-35.0); Mean Corpuscular Hemoglobin 32.2 pg (27.0-33.0); Mean Corpuscular Volume 96.4 fL (80.0-98.0); Mean Platelet Volume 9.7 fL (9.4-12.3); Monocytes Absolute Auto 0.1 X10*3/uL (0.1-1.2); Monocytes Percent Auto 1.3 % (2-11); Neutrophils Absolute Auto 9.2 x10*3/uL (2.0-8.3); Neutrophils Percent Auto 93.3 % (45-73); Platelet Count 376 X10*3/uL (160-400); Red Blood Count 3.85 X10*6/uL (4.20-5.50); Red Cell Distribution Width 12.1 % (11.0-16.0); SCAN SMEAR FLAG 1; White Blood Count 9.8 X10*3/uL (4.8-10.8)
[2024-05-10 17:33] LABS: Estimated Average Glucose 212 mg/dL; SLIDE REVIEW VERIFIED
[2024-05-10 17:45] LABS: B Type Natriuretic Peptide 23 pg/mL (<100)
[2024-05-10 17:56] LABS: Alanine Aminotransferase 23 U/L (0-31); Alkaline Phosphatase 66 U/L (39-117); Anion Gap 14 (12-20); Aspartate Amino Transferase 20 U/L (5-31); Bilirubin Total 0.2 mg/dL (0.0-1.0); Blood Urea Nitrogen 13 mg/dL (9-16); Calcium 10.1 mg/dL (8.4-10.2); Carbon Dioxide 29 mmol/L (22-29); Chloride 98 mmol/L (96-108); Cholesterol 236 mg/dL (<200); Estimated Glomerular Filt Rate 43; HDL Cholesterol 99 mg/dL (>40); LDL Cholesterol Calculated 102 mg/dL (<100); Potassium 5.2 mmol/L (3.3-5.1); Sodium 136 mmol/L (135-145); Total Protein 6.7 g/dL (6.5-8.0); Triglycerides 179 mg/dL (<150)
[2024-05-10 18:03] LABS: Glucose Random 394 mg/dL (60-115)
[2024-05-10 18:14] LABS: Folate 13.9 ng/mL (> or = 4.0); Vitamin B12 476 pg/mL (200-900)
[2024-05-10 21:58] LABS: Creatinine Urine 120.03 mg/dL; Microalbum/Creatinine Ratio Ur 9.9 ug/mg cr (<30)
[2024-05-11 22:18] LABS: Prot Elec - Albumin 3.9 g/dL (3.8-4.8); Prot Elec - Alpha1 0.3 g/dL (0.2-0.3); Prot Elec - Alpha2 0.8 g/dL (0.5-0.9); Prot Elec - Beta 1 0.4 g/dL (0.4-0.6); Prot Elec - Beta 2 0.4 g/dL (0.2-0.5); Prot Elec - Gamma 0.5 g/dL (0.8-1.7); Prot Elec - Total Protein 6.3 g/dL (6.1-8.1)
[2024-05-12 12:14] LABS: IgA 260 mg/dL (70-320); IgG 551 mg/dL (600-1540); IgM 47 mg/dL (50-300)
== END 2024-05-10 15:19 | disposition home or self-care (01) ==
LOC: HO.LAB 15:18
PROVIDERS: Absent Provider Urology; PCP Student in an Organized Health Care Education/Training Program; Visit Provider Nurse Practitioner Family
DX: Z01.811 Encounter for preprocedural respiratory examination (principal); R06.00 Dyspnea, unspecified; D64.9 Anemia, unspecified; Z79.4 Long term (current) use of insulin; E11.9 Type 2 diabetes mellitus without complications; J44.9 Chronic obstructive pulmonary disease, unspecified; F17.210 Nicotine dependence, cigarettes, uncomplicated; G47.33 Obstructive sleep apnea (adult) (pediatric); R05.9 Cough, unspecified
CPT/HCPCS: 36415; 71046; 80053; 80061; 82043; 82570; 82607; 82746; 82784; 83036; 83880; 84165; 85025; 86334; 99212

== ENCOUNTER 2024-05-10 15:18 | Outpatient (AMB) | payer OTHER, SELFPAY ==
[2024-05-10 15:40] VITALS: BP 126/62; PULSE 112; O2SAT 93; BMI 28.3
--- NOTE | 2024-05-10 15:40 | A.OFFVIS_ITS ---
Vital Signs 05/10/24 15:40 Height 4 ft 11 in Weight 139 lb 15.896 oz BMI 28.3 BP 126/62 Blood Pressure Location Lt brachial Position Sitting Pulse 112 H Pulse Source Pulse Oximeter Pulse Oximetry (%) 93 Oxygen Delivery Method Room Air Intake Visit Reasons: Cystoscopy TURBT with Dr. Hayes Systems Protection Technician Required: Yes Meteorological Observer: Meteorological Observer offered & declined Accompanied by: Daughter Allergies No Known Allergies [No Known Allergies*] Allergy (Verified 05/10/24 15:47) Medication List - Last Reconciled 05/10/24 by Lizzie Izquierdo LPN albuterol sulfate 90 mcg/actuation 2 puffs PO Q6H PRN 30 days albuterol sulfate 2.5 mg (3 mL) inhalation QID amoxicillin-pot clavulanate 875-125 mg 1 tab PO BID amoxicillin-pot clavulanate 875-125 mg 1 tab PO BID 14 days aspirin 81 mg PO BEDTIME buspirone 10 mg PO BID calcium carbonate 500 mg PO BID cetirizine 10 mg PO DAILY cholecalciferol (vitamin D3) 50 mcg PO DAILY cyanocobalamin (vitamin B-12) 1,000 mcg PO QPM dupilumab (Dupixent) 300 mg (2 mL) subcut Q2W fluticasone propionate 50 mcg/actuation 1 spray intranasal DAILY PRN ddagxlqyfco-rnplorubn-ffjukwjz 200-62.5-25 mcg (Trelegy Ellipta) 1 inh in halation DAILY gabapentin 300 mg PO TID glipizide ER 10 mg PO DAILY ipratropium-albuterol 0.5 mg-3 mg(2.5 mg base)/3 mL 3 mL inhalation QID 30 days lancets (TRUEplus Lancets) As directed linagliptin 5 mg PO DAILY lisinopril-hydrochlorothiazide 20-12.5 mg 1 tab PO DAILY metformin 500 mg PO DAILY metformin 1,000 mg PO BEDTIME montelukast (Singulair) 10 mg PO BEDTIME 90 days nebulizers As directed pantoprazole 40 mg PO DAILY prednisone 40 mg (2 x 20 mg) PO DAILY prednisone 20 mg (2 x 10 mg) PO DAILY 30 days prednisone PO daily; Take 2 tabs daily x 7 days, then 1 tab daily x 7 days. 14 days prednisone PO daily; Take 6 tabs daily x 3 days, then 5 tabs x 3 days, then 4 tabs x 3 days, then 3 tabs x 3 days, then 2 tabs daily x 3 days, then 1 tab x 3 days to complete. 18 days roflumilast (Daliresp) 500 mcg PO DAILY 30 days rosuvastatin 40 mg PO BEDTIME sertraline 150 mg PO DAILY HPI HPI Cystoscopy TURBT with Dr. Hayes: Details: Carole is a pleasant 73 year old female, former smoker, quit 2020 with 35 pyh with underlying asthma, moderate to severe COPD, DMII, severe JIMBO noncompliant with CPAP therapy and h/o bladder cancer. She is under the care of Dr. Morales and presents today for preoperative evaluation for proposed cystoscopy with Dr. Hayes next week. At baseline, she reports suboptimal control on Trelegy, DuoNeb, Singulair and albuterol MDI. She was trialed on Dupixent however failed treatment and recently Tezspire was approved which patient will be starting in the near future. She was last treated for bronchitis at [facility] on 02/14 requiring Augmentin, Doxcycline and increased dose of prednisone. She reported improvements upon discharge however now reports two month history of worsening dyspnea on minimal exertion, maintained on prednisone 10-20mg daily as well as wheezing, chest congestion and productive cough. She denies any visits to urgent care or hospitalizations since January. She is not on home O2. She has a h/o severe JIMBO from PSG 2020 however could not tolerate CPAP therapy. PFT 2019 revealed moderate to severe obstructive defect with FEV1/FVC 69%, FEV1 50% and DLCO 64%. Of note, she also reports increased BLE edema, denies orthopnea or PND. Denies prior echo. [facility] Medical History Personal history of nicotine dependence Osteopenia Bladder cancer (~2018) Hypertension Diabetes mellitus Asthma-COPD overlap syndrome JIMBO (obstructive sleep apnea) Nicotine dependence, cigarettes, uncomplicated Bilateral anterior knee pain Surgical History History of transurethral resection of bladder tumor (TURBT) History of esophagogastroduodenoscopy (EGD) History of colonoscopy Social History (Updated 05/10/24 @ 15:55 by Lizzie Izquierdo LPN) Household Members: None Housing: Apartment Do you presently have visiting nurse or other home services: Yes (RENT COLLECTOR) Patient Tobacco Use Status: Current everyday Tobacco user Tobacco use type: Cigarette Cigarettes Per Day: 1 Years Smoked: (onset 15yr,s 1/2-1ppd x 50yrs, 35pyh, quit 2020) service: No Current occupational status: retired and disabled 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 Review of Systems Const Denies excessive sweating, Denies fever(s), Denies headache(s) and Denies night sweats Eyes Denies dry eyes, Denies irritation and Denies itchy eyes ENT Reports Normal hearing present, Denies headache(s), Denies nasal congestion, Denies nasal discharge, Denies post nasal drip and Denies sore throat Card Denies chest pain, Denies chest pain at rest, Denies chest pain with activity, Denies claudication, Denies orthopnea and Denies paroxysmal nocturnal dyspnea Resp Denies pain on inspiration, Denies pain with cough and Denies stridor Musc Denies myalgias Neuro Reports Normal hearing present and Denies headache(s) Endo Denies excessive sweating Kiran/Lymph Denies lymphadenopathy Aller/Immun Denies itchy eyes and Denies seasonal rhinorrhea Physical Exam Vital Signs: Last Vital Signs Pulse 112 H 05/10/24 15:40 BP 126/62 05/10/24 15:40 Pulse Ox 93 05/10/24 15:40 Oxygen Delivery Method Room Air 05/10/24 15:40 BMI result Body Mass Index 28.3 Const General: cooperative, healthy appearing, comfortable, no acute distress, well developed and alert Nutritional Appearance: obese Orientation/consciousness: patient oriented x3 Limitations: no limitations HEENT Head: Yes normal to inspection, Yes normocephalic and Yes atraumatic Ears: hearing grossly normal bilaterally and external ears normal Eyes General: appearance normal, both eyes and all related structures Eyelids: Yes eyelids normal Sclerae: sclerae normal EOM: EOMs intact bilaterally Neck Neck: Yes normal visual inspection and Yes no lymphadenopathy Lymphatic: no lymphadenopathy noted Chest Chest palpation & inspection: normal inspection of the chest Resp Effort & Inspection: normal respiratory effort, able to speak in complete sentences, no audible wheezes, Actively coughing Quality: wet, no stridor, not tachypneic, no tripod positioning and no use of accessory muscles Auscultation: crackles (bibasilar inspiratory) and diminished lung sounds Cardio Jugular venous distension: no JVD Rate: regular rate Rhythm: regular rhythm Skin Other: warm, dry General skin exam: no rashes or lesions noted Neuro General: patient oriented x3 Cranial nerves: Yes Normal hearing present Cognition (Neuro): normal cognition Gait exam (Neuro): Normal gait present Extrem Other: 2+ pitting edema Psych Appearance: grossly normal and well kempt Speech and movement: Normal speech and movement present and Clear speech present Affect: normal affect Attitude: cooperative Thought process: Normal thought process present Thought content: Normal thought content present Insight: Good insight present (Psych) Judgement: Good judgement present (Psych) Assessment & Plan Assessment & Plan (1) Asthma-COPD overlap syndrome: Code(s): J44.9 - Chronic obstructive pulmonary disease, unspecified Category: Medical (2) Nicotine dependence, cigarettes, uncomplicated: Comment: (>30pyh) Code(s): F17.210 - Nicotine dependence, cigarettes, uncomplicated Category: Medical (3) JIMBO (obstructive sleep apnea): Code(s): G47.33 - Obstructive sleep apnea (adult) (pediatric) Category: Medical (4) Cough: Code(s): R05.9 - Cough, unspecified Category: Medical (5) Encounter for preoperative pulmonary examination: Code(s): Z01.811 - Encounter for preprocedural respiratory examination Category: Medical Plan Carole presents for preoperative pulmonary evaluation for proposed cystoscopy next week with urology. At this time, patient reports bronchitic symptoms and on exam patient with inspiratory bibasilar crackles as well as BLE edema. She was sent for CXR and BNP to further evaluate. BNP unremarkable however CXR revealed triangular-shaped opacity of the right lower lung medially silhouetting the right side of the heart border and diaphragm as well as an opacity of the left lung base. Will treat with Augmentin for pneumonia and have patient follow up for reevaluation in 2-4 weeks or sooner if needed. She is aware if symptoms worsen to seek emergent care. Orders: Orders XR chest 2V 05/10/24 R06.00 - Dyspnea, unspecified B Type Natriuretic Peptide 05/10/24 R06.00 - Dyspnea, unspecified Medications: Changed From amoxicillin-pot clavulanate 875-125 mg 1 tab PO BID 14 days 28 tabs 0RF To amoxicillin-pot clavulanate 875-125 mg 1 tab PO BID 10 days 20 tabs 0RF Discontinued amoxicillin-pot clavulanate 875-125 mg Discontinued Reason: Patient Completed Course 1 tab PO BID 14 tabs 0RF prednisone Discontinued Reason: Patient Completed Course 40 mg (2 x 20 mg) PO DAILY 8 tabs 0RF dupilumab (Dupixent) Discontinued Reason: Patient Completed Course 300 mg (2 mL) subcut Q2W 4 mL 11RF prednisone Discontinued Reason: Patient Completed Course PO daily; Take 2 tabs daily x 7 days, then 1 tab daily x 7 days. 14 days 21 tabs 2RF prednisone Discontinued Reason: Patient Completed Course PO daily; Take 6 tabs daily x 3 days, then 5 tabs x 3 days, then 4 tabs x 3 days, then 3 tabs x 3 days, then 2 tabs daily x 3 days, then 1 tab x 3 days to complete. 18 days 63 tabs 0RF Coding Level of Care Code Est Pt Level 4 (03968) Complex EM visit Add On G2211 Diagnoses Asthma-COPD overlap syndrome J44.9 Nicotine dependence, cigarettes, uncomplicated F17.210 JIMBO (obstructive sleep apnea) G47.33 Cough R05.9 Encounter for preoperative pulmonary examination Z01.811
== END 2024-05-10 16:12 | disposition home or self-care (01) ==
LOC: HO.HPS 15:18
PROVIDERS: PCP Student in an Organized Health Care Education/Training Program; Visit Provider Nurse Practitioner Family
DX: J44.9 Chronic obstructive pulmonary disease, unspecified (principal); F17.210 Nicotine dependence, cigarettes, uncomplicated; G47.33 Obstructive sleep apnea (adult) (pediatric); R05.9 Cough, unspecified; Z01.811 Encounter for preprocedural respiratory examination
CPT/HCPCS: 99214; G2211

== ENCOUNTER → 2024-05-10 16:53 | Outpatient (BNV) | payer OTHER, SELFPAY | PROVIDERS: Absent Provider Urology; PCP Student in an Organized Health Care Education/Training Program; Visit Provider Nuclear Medicine | DX: R06.00 Dyspnea, unspecified (principal) | CPT/HCPCS: 71046 ==

== ENCOUNTER 2024-05-20 10:43 | Outpatient (REF) | payer OTHER, SELFPAY ==
[2024-05-20 11:51] LABS: Hematocrit 35.8 % (37.0-47.0); Hemoglobin 11.5 g/dl (12.0-16.0); Mean Corpuscular HGB Conc 32.1 g/dl (31.0-35.0); Mean Corpuscular Hemoglobin 31.6 pg (27.0-33.0); Mean Corpuscular Volume 98.4 fL (80.0-98.0); Mean Platelet Volume 10.2 fL (9.4-12.3); Platelet Count 330 X10*3/uL (160-400); Red Blood Count 3.64 X10*6/uL (4.20-5.50); Red Cell Distribution Width 11.9 % (11.0-16.0); White Blood Count 15.9 X10*3/uL (4.8-10.8)
--- OUTSIDE RECORDS SUMMARY | 2024-05-20 11:54 | XMS_ITS | Encounter Summary ---
Author Organization [employer] Address [address] [place] [address] 7 [place] [address] Care Team Providers Care Evp Global Multimedia Sales Name Role Phone Claudette Lorenzo Primary Care Provider [phone] Flower High MD Primary Care Pro vider Encounter Details Date Type Department Care Team (Late st Contact Info) Description 05/06/2022 Orders Only [facility] [address] [place] [phone] Karlene Dow LPN Social History Tobacco Use [...] Description 06/24/2024 1:15 PM EDT Office Visit [facility] [address] [place] [address] [phone] Flower High MD [address] [place], [place] [phone] documented as of this encounter Visit Diagnoses Not on filedocumented in this encounter Care Teams [employer] Sales Relationship Specialty Start Date End Date Claudette Lorenzo FNP [address] [place] [address] PCP - General Family Medicine 10/11/21 07/18/22 Flower High MD [address] [place] [phone] PCP - General Internal Medicine 07/19/22 documented as of this encounter
--- OUTSIDE RECORDS SUMMARY | 2024-05-20 11:54 | XMS_ITS | Encounter Summary ---
Author Organization [employer] Address [address] [place] [address] Care Team Providers Care Full Stack Python Developer Name Role Phone Flower High MD Primary Care Pro vider Reason for Visit * Reason Onset Date Comments Med Refill No Show 09/17/2022 Encounter Details Date Type Department Care Team (Late st Contact Info) Description 09/17/2022 Refill [facility] [address] [place] [address] Claudette Lorenzo, HIDE PASTER [address] [place] [address] Allergic rhinitis, unspecified seasonality, unspecified trigger Social [...] Description 06/24/2024 1:15 PM EDT Office Visit [facility] [address] [place] [phone] Flower High MD [address] [place] [address] [phone] documented as of this encounter Visit Diagnoses Diagnosis Allergic rhinitis, unspecified seasonality, unspecified trigger documented in this encounter Care Teams Full Stack Python Developer Relationship Specialty Start Date End Date Flower High MD [address] [place] [phone] PCP - General Internal Medicine 07/19/22 documented as of this encounter
--- OUTSIDE RECORDS SUMMARY | 2024-05-20 11:54 | XMS_ITS | Encounter Summary ---
Author Organization [employer] Address [address] [place] [address] Care Team Providers Care Vp Analysis Name Role Phone Flower High MD Primary Care Pro vider Encounter Details Date Type Department Care Team (Late st Contact Info) Description 03/05/2023 Orders Only [facility] [address] [place], [place] [phone] Flower High MD [address] [place] [address] Social History Tobacco Use Types Packs/Day Years [...] Description 06/24/2024 1:15 PM EDT Office Visit [facility] [address] [place] [phone] Flower High MD [address] [place] [phone] documented as of this encounter Visit Diagnoses Not on filedocumented in this encounter Additional Health Concerns Assessment Noted Time PHQ-9 Depression Total Score: 0 01/07/20 1:19 PM EST documented as of this encounter Care Teams Vp Analysis Relationship Specialty Start Date End Date Flower High MD [address] [place] [phone] PCP - General Internal Medicine 07/19/22 documented as of this encounter
--- OUTSIDE RECORDS SUMMARY | 2024-05-20 11:54 | XMS_ITS | Encounter Summary ---
Author Organization [employer] Address [address] [place] [address] Care Team Providers Care Pellet Mill Operator Name Role Phone Flower High MD Primary Care Pro vider Reason for Visit * Reason Comments Med Refill Encounter Details Date Type Department Care Team ([facility] st Contact Info) Description 05/30/[address] [facility] [address] [place] [address] Flower High MD [address] [place], [place] [phone] Chronic midline low back pain without sciatica [...] Description 06/24/2024 1:15 PM EDT Office Visit [facility] [address] [place] [phone] Flower High MD [address] [place] [phone] documented as of this encounter Visit Diagnoses Diagnosis Chronic midline low back pain without sciatica documented in this encounter Additional Health Concerns Assessment Noted Time PHQ-9 Depression Total Score: 0 01/07/20 1:19 PM EST documented as of this encounter Care Teams Pellet Mill Operator Relationship Specialty Start Date End Date Flower High MD [address] [place] [phone] PCP - General Internal Medicine 07/19/22 documented as of this encounter
--- OUTSIDE RECORDS SUMMARY | 2024-05-20 11:54 | XMS_ITS | Encounter Summary ---
Author Organization [employer] Address [address] [place] [address] Care Team Providers Care Manager Athletics Name Role Phone Flower High MD Primary Care Pro vider Reason for Visit * Reason Comments Med Refill Encounter Details Date Type Department Care Team ([facility] st Contact Info) Description 04/07/2024 Refill [facility] [address] [place] [address] Meredith Srinivasan MD [address] [place], [place] [phone] Chronic midline low back pain without sciatica [...] Description 06/24/2024 1:15 PM EDT Office Visit [facility] [address] [place] [address] [phone] Flower High MD [address] [place] [phone] documented as of this encounter Visit Diagnoses Diagnosis Chronic midline low back pain without sciatica documented in this encounter Additional Health Concerns Assessment Noted Time PHQ-9 Depression Total Score: 20 024 8:46 AM EDT documented as of this encounter Care Teams Manager Athletics Relationship Specialty Start Date End Date Flower High MD [address] [place] [address] [phone] PCP - General Internal Medicine 07/19/22 documented as of this encounter
--- OUTSIDE RECORDS SUMMARY | 2024-05-20 11:54 | XMS_ITS | Encounter Summary ---
Author Organization [employer] Address [address] [place] [address] [address] [place] [address] Care Team Providers Care Survey Party Chief Name Role Phone Claudette Lorenzo Primary Care Provider [phone] Flower High MD Primary Care Pro vider Encounter Details Date Type Department Care Team (Late st Contact Info) Description 03/18/2022 Orders Only [facility] [address] [place] [phone] Karlene Dow LPN Social History Tobacco Use [...] Description 06/24/2024 1:15 PM EDT Office Visit [facility] [address] [place] [address] [phone] Flower High MD [address] [place], [place] [phone] documented as of this encounter Visit Diagnoses Not on filedocumented in this encounter Care Teams Survey Party Chief Relationship Specialty Start Date End Date Claudette Lorenzo FNP [address] [place] [address] PCP - General Family Medicine 10/11/21 07/18/22 Flower High MD [address] [place] [phone] PCP - General Internal Medicine 07/19/22 documented as of this encounter
--- OUTSIDE RECORDS SUMMARY | 2024-05-20 11:54 | XMS_ITS | Clinical Summary ---
Author Organization [employer] Address [address] [facility] [facility] [address] [place] [address] Care Team Providers Care Refractory Furnace Designer Name Role Phone Flower High MD Primary [...] over left shoulder. 50 g 023 Active acetaminophen (Tylenol) 500 MG tablet [...] MG/3ML nebulizer solutionIndicati ons:COPD with acute exacerbation (CMS/HCC) Take 3 mL (1.25 mg) by nebulization every 6 (six) hours if needed for wheezing. 75 mL 3 Active Blood Glucose Monitoring Suppl (FreeStyle [place] Lite) w/Device kitIndications:T ype 2 diabetes mellitus without complication, with long-term current use of insulin ([facility]) Use to test blood sugar bid dx dm 1 kit Active montelukast (Singulair) 10 MG tablet TAKE 1 TABLET BY MOUTH EVERY EVENING 90 tablet 1 Active cholecalciferol (D3 Super Strength) 50 MCG (1999 UT) capsule TAKE 1 CAPSULE BY MOUTH EVERY MORNING 90 capsule 1 Active cetirizine (ZyrTEC) 10 MG tablet TAKE 1 TABLET BY MOUTH EVERY MORNING 90 tablet 1 Active azithromycin (Zithromax) 250 MG tablet TAKE 1 TABLET BY MOUTH EVERY MORNING (FRIDAY, FRIDAY AND FRIDAY) Active predniSONE (Deltasone) 10 MG tablet TAKE 2 TABLETS BY MOUTH ONCE DAILY FOR 7 DAYS, THEN TAKE 1 TABLET BY MOUTH ONCE DAILY FOR 7 DAYS Active Continuous Glucose Banana Expert (FreeStyle Erinn 2 [place]) deviceIndication s:Diabetes due to underlying condition w oth circulatory comp ([facility]) Use as directed to monitor glucose ever 8 hours. 1 each Active Continuous Glucose Sensor (FreeStyle Erinn 2 Sensor) miscIndications: Diabetes due to underlying condition w oth circulatory comp ([facility]) Use as directed to monitor glucose ever 8 hours. Replace sensor every 14 days. 2 each Active glucose blood (FreeStyle Precision Mikel Test) test stripIndications :Diabetes due to underlying condition w oth circulatory comp ([facility]) Test blood sugar q 8 hours 100 [...] complication, with long-term current use of insulin ([facility]) Inject 18 Units under the skin at bedtime. 15 mL 2 Active pen needle 32G x 4 mm miscIndications: Type 2 diabetes mellitus without complication, with long-term current use of insulin ([facility]) Use as instructed 30 each Active FREESTYLE LITE test stripIndications :Type 2 diabetes mellitus without complication, with long-term current use of insulin ([facility]) TEST BLOOD SUGAR THREE TIMES DAILY DIRECTED [...] THE EVENING WITH MEALS Active Continuous Glucose Banana Expert (FreeStyle Erinn 3 [place]) deviceIndication s:Type 2 diabetes mellitus without complication, with long-term current use of insulin ([facility]) 1 each 3 times daily. As directed 1 each 024 Active Aspirin Low Dose 81 MG EC tabletIndication s:Type 2 diabetes mellitus without complications ([facility]) TAKE 1 TABLET BY MOUTH EVERY EVENING 90 tablet 1 024 Active rosuvastatin (Crestor) 40 MG tablet TAKE 1 TABLET BY MOUTH AT BEDTIME 90 tablet 025 Active ezetimibe (Zetia) 10 MG tablet [...] complication, with long-term current use of insulin ([facility]) USE DIRECTED TO TEST BLOOD SUGAR, CHANGE EVERY 15 DAYS 15 DAYS 2 each Active Alcohol Swabs (Alcohol Prep) 70 % pads TEST BLOOD SUGAR THREE TIMES DAILY DIRECTED 100 each 2 025 Active glipiZIDE XL (Glucotrol XL) 10 MG 24 hr tablet TAKE 1 TABLET BY MOUTH EVERY MORNING WITH BREAKFAST 90 tablet 025 Active Tradjenta 5 MG tabletIndication s:Type 2 diabetes mellitus without complication, unspecified whether care home insulin use (CMS/HCC) TAKE 1 TABLET BY MOUTH EVERY MORNING 90 tablet 025 Active pantoprazole (ProtoNix) 40 MG EC tablet TAKE 1 TABLET BY MOUTH EVERY MORNING 90 tablet 025 Active cyanocobalamin (Vitamin B-12) 1000 MCG tabletIndication s:Routine health maintenance TAKE 1 TABLET BY MOUTH EVERY EVENING 90 tablet 025 Active metFORMIN (Glucophage) 500 MG tablet TAKE 1 TABLET BY MOUTH EVERY MORNING and TAKE 2 TABLETS BY MOUTH EVERY DAY IN THE EVENING 270 tablet 025 Active lisinopril-hydro CHLOROthiazide 20-12.5 MG tabletIndication s:Primary hypertension TAKE 1 TABLET BY MOUTH EVERY MORNING 90 tablet 025 Active Clotrimazole Anti-Fungal 1 % cream APPLY TO SKIN AND TOENAILS DAILY FOR 12 WEEKS 025 Active ipratropium-albu terol (Duo-Neb) 0.5-2.5 mg/3 mL nebulizer solution 025 Active albuterol (2.5 MG/3ML) 0.083% nebulizer solution 025 Active Alcohol Swabs (Alcohol Prep) 70 % pads USE THREE TIMES DAILY DIRECTED 100 each 11 024 2024 Discontinued Continuous Glucose Sensor (FreeStyle Erinn 3 Sensor) miscIndications: Type 2 diabetes mellitus without complication, with long-term current use of insulin ([facility]) 1 each every 14 (fourteen) days. 2 each 024 2024 Discontinued cyanocobalamin (Vitamin B-12) 1000 MCG tabletIndication s:Routine health maintenance TAKE 1 TABLET BY MOUTH EVERY EVENING 90 tablet 024 2024 Discontinued Tradjenta 5 MG tabletIndication s:Type 2 diabetes mellitus without complication, unspecified whether care home insulin use (CMS/HCC) TAKE 1 TABLET BY MOUTH EVERY MORNING 90 tablet 12/27/2 024 03/20/ 2025 Discontinued metFORMIN (Glucophage) 500 MG tablet TAKE 1 TABLET BY MOUTH EVERY MORNING and TAKE 2 TABLETS BY MOUTH EVERY DAY IN THE EVENING 270 tablet 2024 Discontinued glipiZIDE XL (Glucotrol XL) 10 MG 24 hr tablet TAKE 1 TABLET BY MOUTH EVERY MORNING WITH BREAKFAST 90 tablet 2024 Discontinued pantoprazole (ProtoNix) 40 MG EC tablet TAKE 1 TABLET BY MOUTH EVERY MORNING 90 tablet 2024 Discontinued lisinopril-hydro CHLOROthiazide 20-12.5 MG tabletIndication s:Primary hypertension TAKE 1 TABLET BY MOUTH EVERY MORNING 90 tablet 2024 Discontinued Active Problems Problem Noted Date [...] -Will monitor CBC today and refer to clean out driller helper at next apt (anemia) Abnormal uterine bleeding 11/13/2022 Assessment & Plan (11/13/2022 7:01 AM EDT): Pt was seen at the [facility] last mo for AUB. Already referred by provider to motor driver. Not gone yet. gave today information to [...] apt. -colonoscopy:Per pt done in 2020 at [facility]-- ---- requested today record to [place]-Angel[place] A. Not able to obtain, referred today to [...] 11/2022 -colonoscopy:Per pt done in 2020 at [facility]-- ---- requested today record to Abiola [...] of bladder ca-thinks saw last oncologist at [place] like 5 y ago -unsure if needed [...] of bladder ca-thinks saw last oncologist at [place] like 5 y ago -unsure if needed [...] -continue care w psychiatrist and PT-seems f w [facility] in this building -psych meds refilled by specialist Assessment & Plan (08/19/2022 5:41 PM EDT): Pt w hx of depression/anxiety and panic attacks Denies SI -continue care w psychiatrist and PT-seems f w [facility] in this building -psych meds refilled by [...] -ophthalmology 10/2022 - mild non-proliferative diabetic retinopathy. -Printed Circuit Photographer: will refer at next apt -Pt already [...] choroidal nevus to f up in 01/2023 -Printed Circuit Photographer: will refer at next apt Allergic rhinitis [...] Asthma/COPD Overlap syndrome Pt is following w multimedia teacher Jitendra Morales -last note obtained on 02/2022 -CT [...] med -advised pt to f w her multimedia teacher and I printed at last apt CT chest done in 2019 with abnormal findings -not mentioned in last pulm visit note from 02/2022 -pt will f w specialist about need to repeat image if not done before Assessment & Plan (08/19/2022 6:08 PM EDT): Asthma/COPD Overlap syndrome Pt is following w multimedia teacher Jitendra Morales -jude note obtained on 02/2022 -CT chest,abd/pelvis with [...] ED -advised pt to f w her multimedia teacher and I printed today CT chest done [...] mild JIMBO per pulm note -f w multimedia teacher who referred back x sleep studies -pd to have test done -DELISA Luu gave info to pt to call to reschedule apt Assessment & Plan (08/19/2022 5:30 PM EDT): Pt has JIMBO-uses CPAP at night sleep study in 2018 : mild JIMBO per pulm note -taya w multimedia teacher who referred back x sleep studies -pd [...] Encounters Date Type Department Care Team Description 05/11/2024 Telephone [facility] [address] [place], [place] [phone] Chantelle Quiroga MD 05/11/2024 Telephone [facility] [address] [place] [address] Fidelia Donovan RN Results 05/10/2024 Telephone [facility] [address], [place] [phone] Henrry Torres MD 05/10/2024 Orders Only [facility] [address], [place] [phone] Flower High MD 05/06/2024 Refill [facility] [address], [place] [phone] Carli Sanabria ANP Primary hypertension 05/06/2024 Refill [facility] [address] [place] [address] Jim Brewster MD Type 2 diabetes mellitus without complication, unspecified whether termite treater helper insulin use ([facility]); Routine health maintenance 04/29/2024 Refill [facility] [address] [facility] [address] Flower High MD 04/26/2024 3:00 PM EDT Office Visit [facility] [address] [place] [address] Juno, Mabel, OD Diabetes type 2, no ocular involvement (CMS/[facility]) (Primary Dx); Choroidal nevus of left eye; Dry eyes; Pseudophakia of both eyes; Reduced vision; Presbyopia 04/26/2024 Travel 04/20/2024 Refill [facility] [address] [facility] [place] [address] Carli Sanabria ANP Type 2 diabetes mellitus without complication, with long-term current use of insulin ([facility]) 04/15/2024 Telephone [facility] [address] [place] [address] Flower High MD May Recall 04/13/2024 Refill [facility] MEDICINE [address] [place] [address] Meredith Srinivasan MD Chronic midline low back pain without sciatica 04/12/2024 Orders Only GENERIC EXTERNAL DATA DEPARTMENT Provider, Generic External Data 04/12/2024 Telephone [facility] [address] [facility] [place] [address] Jeni Byrne RNconsole manager 04/07/2024 Refill [facility] MED[facility] [address] [place] [address] Meredith Srinivasan MD Chronic midline low back pain without sciatica 04/04/2024 Refill [facility] [address] [place] [address] Flower High MD 03/15/2024 Refill [facility] [address] [place] [address] Flower High MD 02/23/2024 Orders Only [facility] [address] [place] [phone] Flower High MD from Last 3 Months Immunizations Name Administration [...] Description 06/24/2024 1:15 PM EDT Office Visit [facility] [address], [place] [phone] Flower High MD [address] [place] [phone] Health Maintenance Due Date Last Done Comments CT Colonography 1952 Dental Prophylaxis 1950 FIT DNA/Cologuard 1950 FIT 1950 FOBT 1950 Sigmoidoscopy 1950 Alcohol/Substance Use Screening 1964 Dental X-Ray: Bitewings 03/30/2010 03/29/2009 Colonoscopy 06/16/2022 06/16/2012 Colorectal Cancer Screening 06/16/2022 Dental Oral Exam 10/17/2023 04/17/2023, , 07/03/2016 Depression Monitoring (PHQ-9) 06/16/2024 12/17/2023, 12/17/2023 Diabetes: Hemoglobin A1C 08/10/2024 025, 01/06/2024, 06/09/2023, Additional history exists Diabetes: Foot Exam 09/28/2024 09/29/2023 Depression Screening 12/16/2024 12/17/2023, 12/17/19 24 SDOH Screening 12/16/2024 12/17/2023 Diabetes: Urine Protein Screening 05/10/2025 05/10/2024, 01/06/2024, 06/09/2023, Additional history exists Lipid Panel 05/10/2025 05/10/2024, 12/18, 06/09/2023, Additional history exists Tobacco Screening 05/11/2025 05/11/2024 Mammogram 12/24/2025 12/25/2023, 11/17, 12/05/2022, Additional history [...] Procedure Name Priority Date/Time Associated Diagnosis Comments XR CHEST 2 VIEWS Routine 05/10/2024 5:19 PM EDT CANCELLED URINE Routine 05/10/2024 4:49 PM EDT PROTEIN, TOTAL AND PROTEIN ELECTROPHORESIS Routine 05/10/2024 4:49 PM EDT B TYPE NATRIURETIC PEPTIDE (BNP) Routine 05/10/2024 4:49 PM EDT SLIDE REVIEW Routine 05/10/2024 4:49 PM EDT CBC WITH AUTO DIFFERENTIAL Routine 05/10/2024 4:49 PM EDT Anemia, unspecified type IMMUNOFIXATION, SERUM Routine 05/10/2024 4:49 PM EDT Anemia, unspecified type VITAMIN B12/FOLATE, SERUM PANEL Routine 05/10/2024 4:49 PM EDT Type 2 diabetes mellitus without complication, with long-term current use of insulin (CMS/HCC) LIPID PANEL, STANDARD Routine 05/10/2024 4:49 PM EDT Type 2 diabetes mellitus without complication, with long-term current use of insulin (CMS/HCC) HEMOGLOBIN A1C Routine 05/10/2024 4:49 PM EDT Type 2 diabetes mellitus without complication, with long-term current use of insulin (CMS/HCC) COMPREHENSIVE METABOLIC PANEL Routine 05/10/2024 4:49 PM EDT Type 2 diabetes mellitus without complication, with long-term current use of insulin (CMS/HCC) ALBUMIN, RANDOM URINE W/CREATININE Routine 05/10/2024 4:23 PM EDT Type 2 diabetes mellitus without complication, with long-term current use of insulin (CMS/HCC) OCT, RETINA - OU - BOTH EYES Routine 04/26/2024 3:00 PM EDT Choroidal nevus of left eye CYTOPATH-CELL ENHANCED Routine 5 1:30 PM EST CYTOPATH-CELL ENHANCED Routine 5 4:46 PM EST HEPATITIS C AB W/REFL TO HCV RNA, QN, PCR Routine 01/06/2024 11:28 AM EST Annual physical exam BI MAMMOGRAM SCREENING TOMOSYNTHESIS BILATERAL Routine 12/25/2023 12:35 PM EST AMB REFERRAL TO PODIATRY Routine 09/29/2023 Type 2 diabetes mellitus without complication, with long-term current use of insulin (CMS/HCC) 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 [facility] ?[address] ?[place] [address] ?XRay Report ? Signed ? Patient: Willie,Carole ?MR#: [id number] ? : 1950 ?Acct:[id number] ? Age/Sex: 73 / F ?ADM Date: 05/10/24 ? Loc: HO.LAB ? Attending Dr: Belkis Tian METROLOGIST ? Ordering Physician: Belkis Tian NP ?? Date of Service: 05/10/24 ?? Procedure(s): XR chest 2V ?? Accession Number(s): [id number] ? cc: Flower High MD; Belkis Tian NP ? CLINICAL HISTORY: R06.00 - Dyspnea, unspecified ? 2 view chest x-ray ? Comparison: CR - XR CHEST 2V - 02/15/24 14:08 EST ? Findings: ?? Triangular-shaped opacity of the right lower lung medially silhouetting ?? the right side of the heart border and diaphragm. There is opacity of the ?? left lung base. ?? Heart size is normal. ?? No acute fracture. ? IMPRESSION: ?? Triangular-shaped opacity of the right lower lung could represent ?? atelectasis of the right lower lobe. Chest x-ray follow-up is recommended ?? to confirm resolution. ?? Atelectasis/infiltrate of the left lung base. ? This document has been electronically signed by: Ariadna Montoya MD on ?? 05/10/2024 17:19:01 ? Dictated By: ?Ariadna Montoya MD ? Signed By: ?<Electronically signed by Ariadna Montoya MD in OV> ? 05/10/241718 ? DD/ 18 ? TD/TT: 05/10/241718 ? Lining Machine Operator: ? Procedure Note Donjc, Image - 05/10/[address] [address] XRay Report Signed Patient: Sherrie Tapia#: [id number] : 1950cct:[id number] Age/Sex: 73 / FADM Date: 05/10/24 Loc: HO.LAB Attending Dr: Belkis Tian NP Ordering Physician: Belkis Tian NP Date of Service: 05/10/24 Procedure(s): XR chest 2V Accession Number(s): [id number] cc: Flower High MD; Belkis Tian NP CLINICAL HISTORY: R06.00 - Dyspnea, unspecified 2 view chest x-ray Comparison: CR - XR CHEST 2V - 02/15/24 14:08 EST Findings: Triangular-shaped opacity of the right lower lung medially silhouetting the right side of the heart border and diaphragm. There is opacity of the left lung base. Heart size is normal. No acute fracture. IMPRESSION: Triangular-shaped opacity of the right lower lung could represent atelectasis of the right lower lobe. Chest x-ray follow-up is recommended to confirm resolution. Atelectasis/infiltrate of the left lung base. This document has been electronically signed by: Ariadna Montoya MD on 05/10/2024 17:19:01 Dictated By: Ariadna Montoya MD Signed By: <Electronically signed by Ariadna Montoya MD in OV> 05/10/241718 DD/ 18 TD/TT: 05/10/241718 Lining Machine Operator: [facility] External Provider IMG XR PROCEDURES Final Result * Cancelled Urine (05/10/2024 4:49 PM EDT) Cancelled Urine SEE NOTE [facility] Comment:NO SPECIMEN WAS RECE IVED FOR MICARU 05/10/2024 4:49 PM EDT 05/10/2024 8:37 PM EDT Flower Miranda MD HISTORICAL/NON OR DERABLE LABS Final Result [facility] [address] [place] [phone] [phone] * Slide Review (05/10/2024 4:49 PM EDT) Slide Review VERIFIED [facility] 05/10/2024 4:49 PM EDT 05/10/2024 4:50 PM EDT us Flower Miranda MD LAB BLOOD ORDERAB LES Final Result Performing Organization Address [facility]/ZIP Co de Phone Number [facility] [address] [place] [phone] [phone] * Vitamin B12 (Cobalamin) and Folate Panel, Serum (05/10/2024 4:49 PM EDT) Vitamin B12 476 200 - 900 pg/mL [facility] Comment:NORMAL 200-900 PG/ML INDETERMINATE 160-199 PG/ML DEFICIENT < 160 PG/ML Folate 13.9 > or = 4.0 ng/mL [facility] Comment:Reference Values:> o r = 4.0 ng/mL< 4.0 ng/mL suggests folate deficiency Methotrexate, aminopterin and folinic acid(leucovorin) are chemotherapeutic agents whose molecularstructures are similar to folate; therefore, the Architectfolate assay cannot be used for patients using these drugs. Blood 05/10/2024 4:49 PM EDT 05/10/2024 4:50 PM EDT us Flower Miranda MD LAB BLOOD ORDERAB LES Final Result Performing Organization Address City/[facility]/ZIP Co de Phone Number [facility] [address] [place] [phone] * (ABNORMAL) CBC auto differential (05/10/2024 4:49 PM EDT) White Blood Count 9.8 4.8 - 10.8 X10*3/uL [facility] Red Blood Count 3.85(L) 4.20 - 5.50 X10*6/uL [facility] Hemoglobin 12.4 12.0 - 16.0 g/dl [facility] Hematocrit 37.1 37.0 - 47.0 % [facility] Mean Corpuscular Volume 96.4 80.0 - 98.0 fL [facility] Mean Corpuscular Hemoglobin 32.2 27.0 - 33.0 pg [facility] Mean Corpuscular HGB Conc 33.4 31.0 - 35.0 g/dl [facility] Red Cell Distribution Width 12.1 11.0 - 16.0 % [facility] Platelet Count 376 160 - 400 X10*3/uL [facility] Mean Platelet Volume 9.7 9.4 - 12.3 fL [facility] Neutrophils Percent Auto 93.3(H) 45 - 73 % [facility] Imm Gran Pct Auto 0.8(H) 0.0 - 0.4 % [facility] Lymphocytes Percent Auto 4.4(L) 20 - 40 % [facility] Monocytes Percent Auto 1.3(L) 2 - 11 % [facility] Eosinophils Percent Auto 0.1 0 - 4 % [facility] Basophils Percent Auto 0.1 0 - 2 % [facility] NRBC Pct Auto 0.0 0.0 - 0.2 /100WBC [facility] Neutrophils Absolute Auto 9.2(H) 2.0 - 8.3 x10*3/uL [facility] Imm Gran Abs Auto 0.08(H) 0.00 - 0.03 X10*3/uL [facility] Lymphocytes Absolute Auto 0.4(L) 1.2 - 4.9 X10*3/uL [facility] Monocytes Absolute Auto 0.1 0.1 - 1.2 X10*3/uL [facility] Eosinophils Absolute Auto 0.0 0.0 - 0.4 X10*3/uL [facility] Basophils Absolute Auto 0.0 0.0 - 0.2 X10*3/uL [facility] NRBC Abs Auto 0.000 0.0 - 0.012 X10*3/uL [facility] Blood Venous blood specimen / Unknown 05/10/2024 4:49 PM EDT 05/10/2024 4:50 PM EDT Flower Miranda MD LAB BLOOD ORDERAB LES Edited Result - Final [facility] [address] [place] [phone] * (ABNORMAL) Immunofixation, Serum (05/10/2024 4:49 PM EDT) [facility] IMMUNOGLOBULIN G 551(A) 600 - 1540 mg/dL [facility] IMMUNOGLOBULIN A 260 70 - 320 mg/dL [facility] Immunoglobulin M 47(A) 50 - 300 mg/dL [facility] Comment:THIS TEST WAS PERFOR MED AT:[employer] [place] [phone] CLARK MD Immunofixation Result SEE NOTE [facility] Comment:No monoclonal protei ns detected. Blood Venous blood specimen / Unknown 05/10/2024 4:49 PM EDT 05/10/2024 4:50 PM EDT Flower Miranda MD LAB BLOOD ORDERAB LES Final Result [facility] [address] [place] [phone] * (ABNORMAL) Protein, Total and Protein??Electrophoresis (05/10/2024 4:49 PM EDT) Pathologist [facility] Prot Elec - Total Protein 6.3 6.1 - 8.1 g/dL [facility] Prot Elec - Albumin 3.9 3.8 - 4.8 g/dL [facility] Prot Elec - Alpha1 0.3 0.2 - 0.3 g/dL [facility] Prot Elec - Alpha2 0.8 0.5 - 0.9 g/dL [facility] Prot Elec - Beta 1 0.4 0.4 - 0.6 g/dL [facility] Prot Elec - Beta 2 0.4 0.2 - 0.5 g/dL [facility] Prot Elec - Gamma 0.5(A) 0.8 - 1.7 g/dL [facility] PES - Abn Protein Band 1 TNP [facility] PES-Abn Protein Band 2 TNP [facility] PES-Abn Protein Band 3 [facility] Prot Elec - Interpretation SEE NOTE [facility] Comment:Consistent with hypo gammaglobulinemia. Serum free lightchains or urine immunofixation should be considered ifplasma cell dyscrasias are a possible clinicaldiagnosis.THIS TEST WAS PERFORMED AT:[employer] [place] [phone] CLARK MD 05/10/2024 4:49 PM EDT 05/10/2024 4:50 PM EDT us Flower Miranda MD LAB BLOOD ORDERAB LES Final Result Performing Organization Address [facility]/ZIP Co de Phone Number [facility] [address] [place] [address] [phone] * B Type Natriuretic Peptide (BNP) (05/10/2024 4:49 PM EDT) B Type Natriuretic Peptide 23 <100 pg/mL [facility] 05/10/2024 4:49 PM EDT 05/10/2024 4:50 PM EDT us Generic External Data Provider LAB BLOOD ORDERAB LES Final Result Performing Organization Address City/[facility] Co de Phone Number [facility] [address] [place] [phone] * (ABNORMAL) Hemoglobin A1c (05/10/2024 4:49 PM EDT) Hemoglobin A1c 9.0(H) <6.0 % [facility] Comment:Hemoglobin A1C Refer ence Range Adults: 4.8 - 6.0 % Non diabetic: < 6.0 % Goal: < 7.0 %Additional Action Suggested: > 8.0 %Note: Hemoglobin A1c results are invalid for patients with abnormal amounts of HbF. Blood transfusions may impact the HbA1c concentration in the patient sample. Estimated Average Glucose 212 mg/dL [facility] Comment:eAG = Estimated ave rage glucose which is %A1C expressed asaverage glucose, using the formula of the Z3P-VelvjimUcijpbw Glucose study (ADAG), Diabetes Care, Vol.31,#8,2007 Blood Venous blood specimen / Unknown 05/10/2024 4:49 PM EDT 05/10/2024 4:50 PM EDT us Flower Miranda MD LAB BLOOD ORDERAB LES Final Result Performing Organization Address [facility] [facility] Co de Phone Number [facility] [address] [place] [phone] * (ABNORMAL) Lipid Panel, Standard (05/10/2024 4:49 PM EDT) Triglycerides 179(H) <150 mg/dL [facility] Comment:Desirable Triglyceri de: less than 150 mg/dLBorderline High Triglyceride 150-199 mg/dLHigh Triglyceride: 200-499 mg/dLVery High Triglyceride: greater than or equal to 5OO mg/dL Cholesterol 236(H) <200 mg/dL [facility] Comment:Desirable Cholestero l: less than 200 mg/dLBorderline High Cholesterol: 200-239 mg/dLHigh Cholesterol: greater than 239 mg/dL LDL Cholesterol Calculated 102(H) <100 mg/dL [facility] Comment:Desirable LDL: less than 100 mg/dLNear Optimal/Above Optimal LDL: 110- 129 mg/dLBorderline High LDL: 130-159 mg/dLHigh LDL: 160-189 mg/dLVery High LDL: greater than or equal to 190 mg/dL HDL Cholesterol 99 >40 mg/dL [facility] Comment:Desirable HDL: great er than 40 mg/dL Note: This HDL assay may give artificially low results in patients with liver disease. Blood Venous blood specimen / Unknown 05/10/2024 4:49 PM EDT 05/10/2024 4:50 PM EDT us Flower Miranda MD LAB BLOOD ORDERAB LES Final Result [facility] [address] [place] [phone] [phone] * (ABNORMAL) Comprehensive Metabolic Panel (05/10/2024 4:49 PM EDT) Sodium 136 135 - 145 mmol/L [facility] Potassium 5.2(H) 3.3 - 5.1 mmol/L [facility] Chloride 98 96 - 108 mmol/L [facility] Carbon Dioxide 29 22 - 29 mmol/L [facility] Anion Gap 14 12 - 20 [facility] Urea Nitrogen (BUN) 13 9 - 16 mg/dL [facility] Creatinine, Serum 1.23 0.5 - 1.4 mg/dL [facility] Estimated Glomerular Filt Rate 43 [facility] Comment:Chronic Kidney Disea se: Estimated GFR < 60 mL/min/1.97l1Gbecyv Kidney Disease: Estimated GFR < 15 mL/min/1.73m2 Glucose 394(HH) 60 - 115 mg/dL [facility] Comment:Critical value for t est(s): GLUR Results called to and readback by: DR QUIROGA Person calling: [employer] Date: 05/10/24 Time:1802 Calcium 10.1 8.4 - 10.2 mg/dL [facility] Bilirubin, Total 0.2 0.0 - 1.0 mg/dL [facility] Aspartate Amino Transferase 20 5 - 31 U/L [facility] Alanine Aminotransferase 23 0 - 31 U/L [facility] Total Protein 6.7 6.5 - 8.0 g/dL [facility] Albumin Level 4.0 3.5 - 5.0 g/dL [facility] Alkaline Phosphatase 66 39 - 117 U/L [facility] Blood Venous blood specimen / Unknown 05/10/2024 4:49 PM EDT 05/10/2024 4:50 PM EDT us Flower Miranda MD LAB BLOOD ORDERAB LES Final Result Performing Organization Address [facility]/ZIP Co de Phone Number [facility] [address] [place] [phone] * Albumin, Random Urine W/Creatinine (05/10/2024 4:23 PM EDT) Creatinine, Urine 120.03 mg/dL [facility] Microalbumin Urine 12.0 mg/L [facility] Microalbum Creatinine Ratio Ur 9.9 <30 ug/mg cr [facility] Comment:Albumin/Creatinine R atio Reference Ranges: Normal: < 30 ug/mg creatinine Microalbuminuria: 30 - 300 ug/mg creatinineClinical Albuminuria: > 300 ug/mg creatinine Urine (Urine, Random) 05/10/2024 4:23 PM EDT 05/10/2024 9:37 PM EDT us Flower Miranda MD LAB URINE ORDERAB LES Final Result Performing Organization Address [facility]/ZIP Co de Phone Number [facility] [address] [place] [phone] * Cytopath-cell enhanced (04/12/2024 1:30 PM EST) Only the most recent of2 resultswithin the time period is included. 04/12/2024 1:30 PM EST 04/13/2024 11:55 AM EST Narrative [facility] - 04/15/2024 11:17 AM EST ----- ------- Name: Carole Tapia ? Age/Sex: 73/F ? : 1950 Unit#: [id number] ?? Attend Dr: Abran Hayes MD ?Re04/12/24 ?Status: DEP REF ? Location: HO.LAB ?Disch: ? ----- ------- SPEC : [id number] ? RECD: 04/13/24-5 ? STATUS: ??SOUT ? REQ NUM: [id number] ? HONEY: 04/12/24-0 ? SUBM DR: Abran Hayes MD ? ENTERED: ??04/13/24-1302 ?SP TYPE: Cytology ? OTHR : Flower High MD ORDERED: ??Cyto-enhanced ? Diagnosis [...] Copies To: ?? Abran Hayes MD ?? [facility] ?? [address] [place] [address] [address] ?? [place] [address] ?? [phone] ?? [email or web address] ?? Flower High MD ?? [address] [facility] ?? [place] [address] ?? [phone] ----- ------- Signed (signature on file) Fatimah Bradford 04/15/24 1117 ? ----- ------- ? END OF REPORT ? us Generic External Data Provider LAB CYTOLOGY ORDLesly RABFRANCISCO Final Result Performing Organization Address [facility] de Phone Number [facility] [address] [place] [phone] * Hepatitis C Antibody with Reflex to HCV, RNA, Quantitative, Real-Time PCR (01/06/2024 11:28 AM EST) Hepatitis C Antibody Nonreactive Nonreactive [facility] Comment:Antibodies to HCV no t detected; does not exclude early acuteHCV infection. Blood Venous blood specimen / Unknown 01/06/2024 11:28 AM EST 01/06/2024 1:08 PM EST us Flower Miranda MD LAB BLOOD ORDERAB LES Final Result Performing Organization Address [facility] de Phone Number [facility] [address] [place] [phone] * BI Mammogram Screening Tomosynthesis Bilateral (12/25/2023 12:35 PM EST) Anatomical Region Laterality Modality Breast Bilateral Mammography 12/25/2023 12:3 5 PM EST Narrative 01/02/2024 4:11 PM EST ? [facility] [place] ? [address] [facility] ?[place] [address] ? Mammography Report ? Signed ? Patient: Willie,Carole ?MR#: [id number] ? : 1950 ?Acct:[id number] ? Age/Sex: 72 / F ?ADM Date: 11/07/24 ? Loc: HO.MAMMO ? Attending Dr: Flower Miranda MD ? Ordering Physician: Flower High MD ?Re ?? sults: 2Benign Findings ? Date of Service: 12/25/23 ?Follow Up: 1 Year From Orig ?? inal Mammogram ? Procedure(s): MM tomosynthesis screening BI ?? Accession Number(s): [id number] ? cc: Flower High MD ? EXAMINATION: [...] DD/ 1235 ? TD/TT: 12/25/23 1253 ? Lining Machine Operator: ? Procedure Note Donscottsandyter, Image - 01/02/2024 [facility] [address] [place] [address] Mammography Report Signed Patient: Sherrie Tapia#: [id number] : 3Acct:[id number] Age/Sex: 72 / FADM Date: 12/25/23 Loc: HO.MAMMO Attending Dr: Flower Miranda MD Ordering Physician: Flower High sults: 2Benign Findings Date of Service: 12/25/23Follow Up: 1 Year From Orig inal Mammogram Procedure(s): MM tomosynthesis screening BI Accession Number(s): [id number] cc: Flower High MD EXAMINATION: MM SCREENING [...] by: Fabiana Casiano DO 01/02/2024 04:08 PM EST Dictated By: Fabiana Casiano DO Signed By: <Electronically signed by Fabiana Casiano DO in OV> 01/02/24 1608 DD/ 1235 TD/TT: 12/25/23 1253 Lining Machine Operator: Flower Miranda MD IMG BI PROCEDURES Final Result * Referral to Podiatry (09/29/2023) Flower Miranda MD OUTPATIENT REFERR AL ORDERABLES Final Result * Colonoscopy (06/16/2012) Colonoscopy Normal Normal Historical Provider HEALTH MAINTENANCE Final Result from Last 3 Months or Most Recently Relevant to Health Maintenance Insurance [facility] ADULT Care Teams Refractory Furnace Designer Relationship Specialty Start Date End Date Flower High MD [address] [place] [phone] PCP - General Internal Medicine 07/19/22
--- OUTSIDE RECORDS SUMMARY | 2024-05-20 11:54 | XMS_ITS | Encounter Summary ---
Author Organization [employer] Address [address] [place] [address] Care Team Providers Care Binding Cutter Synthetic Cloth Name Role Phone Flower High MD Primary Care Pro vider Reason for Visit * Reason Comments Med Refill Encounter Details Date Type Department Care Team ([facility] st Contact Info) Description 01/09/2023 Refill [facility] [address] [place] [address] Flower High MD [address] [place], [place] [phone] Type 2 diabetes mellitus without complication, unspecified whether penitentiary insulin use ([facility]) Social History Tobacco Use Types Packs/Day Years [...] the past 12 months, has t he [employer], gas, oil or water company threatened to [...] Description 06/24/2024 1:15 PM EDT Office Visit [facility] [address] [place] [phone] Flower High MD [address] [place] [phone] documented as of this encounter Visit Diagnoses Diagnosis Type 2 diabetes mellitus without complication, unspecified whether independent marketing consultant insulin use ([facility]) documented in this encounter Additional Health Concerns Assessment Noted Time PHQ-9 Depression Total Score: 0 01/07/20 1:19 PM EST documented as of this encounter Care Teams Binding Cutter Synthetic Cloth Relationship Specialty Start Date End Date Flower High MD [address] [place] [phone] PCP - General Internal Medicine 07/19/22 documented as of this encounter
--- OUTSIDE RECORDS SUMMARY | 2024-05-20 11:54 | XMS_ITS | Encounter Summary ---
Author Organization [employer] Address [address] [place] [address] Care Team Providers Care Supervisor Twisting Department Name Role Phone Flower High MD Primary Care Pro vider Reason for Visit * Reason Onset Date Comments Results 05/11/2024 Encounter Details Date Type Department Care Team (Late st Contact Info) Description 05/11/2024 Telephone [facility] [address] [place] [address] Fidelia Donovan, LAZARO Results Social History Tobacco Use Types Packs/Day Years [...] encounter Miscellaneous Notes * Telephone Encounter - Fidelia Donovan RN - 05/20/2024 8:58 AM EDT TC X5 placed to pt to inform that a repeat potassium lab needs to be drawn. The pt did state several times that they were going to come to the lab but according to chart and [employer] the lab never got drawn. The pt is aware of the importance of having this done and will follow up PRN. * Telephone Encounter - Fidelia Donovan RN - 05/19/2024 11:40 AM EDT TC placed to pt and spoke with pt daughter Brooklyn (HIPAA compliant) regarding if pt had potassium labs drawn. Brooklyn confirmed that the pt has not had this done yet and was advised by RN that this needs to be completed by 05/20 at the latest. Brooklyn was in agreement and informed that the results will be sent directly to PCP. * Telephone Encounter - Fidelia Donovan RN - 05/18/2024 9:29 AM EDT Call placed to pt daughter Daily (HIPAA compliant) to inquire if the pt had repeat potassium labs drawn. Per pt daughter the pt was to come in this morning to have them done but is not feeling well. The pt plans on having these labs done tomorrow 05/19/2024 at the [facility]. This encounter will be forwarded to check on the status of this * Telephone Encounter - Fidelia Donovan RN - 05/17/2024 1:05 PM EDT Pt came to the [employer] Team Hematology Technologist to inquire about the voicemail that was left for the pt. RN advised that the pt needs to have potassium rechecked per Dr. Srinivasan as it was slightly elevated on 05/11/2024. Pt states that she will proceed to the lab on the first floor at [facility] to have this done. Will postpone this message until 05/18 to check and see if the pt had labs done. * Telephone Encounter - Fidelia Donovan RN - 05/17/2024 9:39 AM EDT TC placed to pt and LVM to call back the office in regards to checking on potassium levels. Will keep this message in the [employer] Team inbox to make sure the pt checks * Telephone Encounter - Jeni Byrne RN - 05/11/2024 2:51 PM EDT Pt's daughter Brooklyn walked into [employer] team lobby regarding messages left on her phone below. Wentover: -Pt's BG elevated and A1C increased. Daughter reports BG is WNL today. -Potassium slightly elevated at 5.2. Advised to drink lots of water and avoid foods high in potassium like oranges, bananas, tomatoes, cantaloupe, spinach, avocados, etc. Recheck potassium Friday or Friday. Daughter agreeable. -CXR slightly abnormal, recommend appt to recheck. Daughter reports that pt saw her electronic die maker at [facility] this morning. They gave her Abx, ordered labs, and ordered repeat CXR. Checked in [employer] and confirmed this information. Advised to continue following with pulm. Reminded ofupcomming appt with PCP 06/24/24 @1:15pm. Printed and gave appt reminder. She will bring mom for repeat labs and ill call us prior to appt as needed. * Telephone Encounter - Jeni Byrne RN - 05/11/2024 1:50 PM EDT Telephone call placed to pt regarding below messages. No answer, left v/m. No other numbers in chart. Will retask. * Telephone Encounter - Jeni Byrne RN - 05/11/2024 10:22 AM EDT Consolidating 4 tasks to call this pt Lab result tasks Please reach out to pt for status check for high blood glucose and hyperkalemia. . Advise recheck potassium (please send lab slip). Advise low K foods and increase water intake. Than britney. -S [place] Covering for Dr. Garrett. Elevated BS, change in A1c (6.7 to 9.0), borderline high K+, and questionable CXR (atelectasis?). The next appointment with PCP is not until 6 weeks out. I would recommend offering an urgent appointment for further evaluation. Thank you, MD Therese Reyes CXR result tasks Follow up cxr is recommended. Please schedule pt for an appointment in 3 weeks for evaluation of lungs and repeat CXR . Thank you. -S Craig * Telephone Encounter - Fidelia Donovan RN - 05/11/2024 8:52 AM EDT TC placed to pt and LVM to call back the office in regards to informing about results below. ----- Message from Meredith Srinivasan MD sent at 05/11/2024 8:36 AM EDT ----- Please reach out to pt for status check for high blood glucose and hyperkalemia. . Advise recheck potassium (please send lab slip). Advise low K foods and increase water intake. Than kyou. documented in this encounter Plan of Treatment Upcoming Encounters Date Type Department Care Team (Late st Contact Info) Description 06/24/2024 1:15 PM EDT Office Visit [facility] [address] [place] [phone] Flower High MD [address] [place] [phone] Scheduled Orders Name Type Priority Associated Diagnoses Orde r Schedule Potassium Lab Routine Serum potassium elevated Expected: 05/11/2024, Expires: 05/11/2025 documented as of this encounter Visit Diagnoses Diagnosis Serum potassium elevated Hyperpotassemia documented in this encounter Additional Health Concerns Assessment Noted Time PHQ-9 Depression Total Score: 20 024 8:46 AM EDT documented as of this encounter Care Teams Supervisor Twisting Department Relationship Specialty Start Date End Date Flower High MD [address] [place] [address] PCP - General Internal Medicine 07/19/22 documented as of this encounter
[2024-05-20 12:18] LABS: Anion Gap 16 (12-20); Blood Urea Nitrogen 18 mg/dL (9-16); Calcium 10.1 mg/dL (8.4-10.2); Carbon Dioxide 28 mmol/L (22-29); Chloride 99 mmol/L (96-108); Estimated Glomerular Filt Rate 52; Potassium 5.2 mmol/L (3.3-5.1); SLIDE REVIEW MANUAL DIFF; Sodium 138 mmol/L (135-145)
[2024-05-20 12:21] LABS: Band Neutrophils Percent 0 % (3-5); Lymphocytes Absolute Manual 0.3 X10*3/uL (1.2-4.9); Lymphocytes Percent Manual 2 % (20-40); Microalbum/Creatinine Ratio Ur 46.3 ug/mg cr (<30); Monocytes Absolute Manual 0.5 X10*3/uL (0.1-1.2); Monocytes Percent Manual 3 % (2-11); Neutrophils Absolute Manual 15.1 X10*3/uL (2.0-8.3); Neutrophils Percent Manual 95 % (45-73); Platelet Estimate NORMAL (NORMAL); Platelet Morphology Comment NORMAL; RBC Morphology NORMAL
[2024-05-20 13:54] LABS: Glucose Random 415 mg/dL (60-115)
== END 2024-05-20 10:44 | disposition home or self-care (01) ==
LOC: HO.HHCL 10:43
PROVIDERS: Student in an Organized Health Care Education/Training Program; Urology; Visit Provider Family Medicine
DX: Z01.818 Encounter for other preprocedural examination (principal); E11.9 Type 2 diabetes mellitus without complications; Z79.4 Long term (current) use of insulin
CPT/HCPCS: 36415; 80048; 82043; 82570; 85007; 85025; 85027

== ENCOUNTER 2024-05-24 11:11 | Outpatient (REF) | payer OTHER, SELFPAY ==
--- OUTSIDE RECORDS SUMMARY | 2024-05-24 13:26 | XMS_ITS | Encounter Summary ---
Author Organization [employer] Address [address] [place] [address] Care Team Providers Care Foam Rubber Fabricator Name Role Phone Flower High MD Primary Care Pro vider Reason for Visit * Reason Onset Date Comments Durable Medical Equipment 05/21/2024 Encounter Details Date Type Department Care Team ([facility] st Contact Info) Description 05/21/2024 Telephone [facility] [address] [place] [address] Flower High MD [address] [place], [place] [phone] Durable Medical Equipment Social History Tobacco Use Types Packs/Day Years [...] encounter Miscellaneous Notes * Telephone Encounter - Maren Crocker - 05/21/2024 1:45 PM EDT Nebulizer dispensed per previous encounter. * Telephone Encounter - Maren Crocker - 05/21/2024 1:44 PM EDT ----- Message from Nurse Jeni Stephen sent at 05/21/2024 8:35 AM EDT ----- ----- Message ----- From: Flower Miranda MD Sent: 05/20/2024 9:04 PM EDT To: Fidelia Donovan RN; # I think this is done as DME -please can you assist helping with that order Thanks ----- Message ----- From: Fidelia Donovan RN Sent: 05/20/2024 11:07 AM EDT To: MD Scott Arriaga Pt reports that she broke her nebulizer machine and is in need of a new one. Pt is hoping that a new script can be sent to the [facility] pharmacy. documented in this encounter Plan of Treatment Upcoming Encounters Date Type Department Care Team (Late st Contact Info) Description 05/24/2024 3:00 PM EDT Clinical Support [address] [phone] 05/28/2024 3:30 PM EDT Medication Management [address] [address] Catrachita Whiting, PharmD [address] [place] [phone] 06/24/2024 1:15 PM EDT Office Visit [address] [address] Flower High MD [address] [place] [phone] documented as of this encounter Visit Diagnoses Not on filedocumented in this encounter Additional Health Concerns Assessment Noted Time PHQ-9 Depression Total Score: 20 024 8:46 AM EDT documented as of this encounter Care Teams Foam Rubber Fabricator Relationship Specialty Start Date End Date Flower High MD [address] [place] [phone] PCP - General Internal Medicine 07/19/22 documented as of this encounter
--- OUTSIDE RECORDS SUMMARY | 2024-05-24 13:26 | XMS_ITS | Encounter Summary ---
Author Organization [employer] Address [address] [facility] [address] [place] [address] Care Team Providers Care Wharf Labourer Name Role Phone Flower High MD Primary Care Pro vider Encounter Details Date Type Department Care Team (Late st Contact Info) Description 05/20/2024 Orders Only GENERIC EXTERNAL DATA DEPARTMENT Provider, [...] as of this encounter Miscellaneous Notes * Result Encounter Note - Flower Miranda MD - 05/20/2024 12:18 PM EDT Please call patient to advise to come to already scheduled apt with me to go over abnormal labs Thanks * Result Encounter Note - Flower Miranda MD - 05/20/2024 12:18 PM EDT Addressed as in telephone encounter documented in this encounter Plan of Treatment Upcoming Encounters Date Type Department Care Team (Late st Contact Info) Description 05/24/2024 3:00 PM EDT Clinical Support [facility] [address] [place] [address] 05/28/2024 3:30 PM EDT Medication Management [facility] [address] [place] [phone] Catrachita Whiting, PharmD [address] [place] [address] 06/24/2024 1:15 PM EDT Office Visit [facility] [address] [place] [phone] Flower High MD [address] [place] [address] documented as of this encounter Procedures Procedure Name Priority Date/Time Associated Diagnosis Comments SLIDE REVIEW Routine 05/20/2024 10:46 AM EDT COMPLETE BLOOD COUNT MAN DIF Routine 05/20/2024 10:46 AM EDT ALBUMIN, RANDOM URINE W/CREATININE Routine 05/20/2024 10:46 AM EDT CBC WITH AUTO DIFFERENTIAL Routine 05/20/2024 10:46 AM EDT BASIC METABOLIC PANEL Routine 05/20/2024 10:46 AM EDT documented in this encounter Results * (ABNORMAL) Complete Blood Count Manual Diff (05/20/2024 10:46 AM EDT) White Blood Count 15.9(H) 4.8 - 10.8 X10*3/uL [facility] Red Blood Count 3.64(L) 4.20 - 5.50 X10*6/uL [facility] Hemoglobin 11.5(L) 12.0 - 16.0 g/dl [facility] Hematocrit 35.8(L) 37.0 - 47.0 % [facility] Mean Corpuscular Volume 98.4(H) 80.0 - 98.0 fL [facility] Mean Corpuscular Hemoglobin 31.6 27.0 - 33.0 pg [facility] Mean Corpuscular HGB Conc 32.1 31.0 - 35.0 g/dl [facility] Red Cell Distribution Width 11.9 11.0 - 16.0 % [facility] Platelet Count 330 160 - 400 X10*3/uL [facility] Mean Platelet Volume 10.2 9.4 - 12.3 fL [facility] NRBC Pct Auto 0.0 0.0 - 0.2 /100WBC [facility] NRBC Abs Auto 0.000 0.0 - 0.012 X10*3/uL [facility] Neutrophils % Manual 95(H) 45 - 73 % [facility] Band Neutrophils Percent 0(L) 3 - 5 % [facility] Lymphocytes Percent Manual 2(L) 20 - 40 % [facility] Monocytes Percent Manual 3 2 - 11 % [facility] NEUTROPHILS ABSOLUTE MANUAL 15.1(H) 2.0 - 8.3 X10*3/uL [facility] LYMPHOCYTES ABSOLUTE MANUAL 0.3(L) 1.2 - 4.9 X10*3/uL [facility] MONOCYTES ABSOLUTE MANUAL 0.5 0.1 - 1.2 X10*3/uL [facility] Platelet Estimate NORMAL NORMAL [facility] Platelet Morphology Comment NORMAL [facility] RBC Morphology NORMAL [facility] 05/20/2024 10:4 6 AM EDT 05/20/2024 11:30 AM EDT us Generic External Data Provider LAB BLOOD ORDERAB LES Final Result Performing Organization Address City/State/[facility] Co de Phone Number [facility] [address] [place] [phone] * (ABNORMAL) Albumin, Random Urine W/Creatinine (05/20/2024 10:46 AM EDT) Creatinine, Urine 49.60 mg/dL [facility] Microalbumin Urine 23.0 mg/L [facility] Microalbum Creatinine Ratio Ur 46.3(H) <30 ug/mg cr [facility] Comment:Albumin/Creatinine R atio Reference Ranges: Normal: < 30 ug/mg creatinine Microalbuminuria: 30 - 300 ug/mg creatinineClinical Albuminuria: > 300 ug/mg creatinine 05/20/2024 10:4 6 AM EDT 05/20/2024 11:16 AM EDT us Flower Miranda MD LAB URINE ORDERAB LES Final Result Performing Organization Address City/[facility]/ZIP Co de Phone Number [facility] [address] [place] [phone] * (ABNORMAL) Basic Metabolic Panel (05/20/2024 10:46 AM EDT) Sodium 138 135 - 145 mmol/L [facility] Potassium 5.2(H) 3.3 - 5.1 mmol/L [facility] Chloride 99 96 - 108 mmol/L [facility] Carbon Dioxide 28 22 - 29 mmol/L [facility] Anion Gap 16 12 - 20 [facility] Urea Nitrogen (BUN) 18(H) 9 - 16 mg/dL [facility] Creatinine, Serum 1.04 0.5 - 1.4 mg/dL [facility] Estimated Glomerular Filt Rate 52 [facility] Comment:Chronic Kidney Disea se: Estimated GFR < 60 mL/min/1.79l6Scafzc Kidney Disease: Estimated GFR < 15 mL/min/1.73m2 Glucose 415(HH) 60 - 115 mg/dL [facility] Comment:Critical value for t est(s): GLUR Results called to [facility] back by: DR HADLEY LEON Person calling:JULIO Date: 05/20/2024 Time:13:50 Calcium 10.1 8.4 - 10.2 mg/dL [facility] 05/20/2024 10:4 6 AM EDT 05/20/2024 11:30 AM EDT us Generic External Data Provider LAB BLOOD ORDERAB LES Final Result Performing Organization Address [facility]/ZIP Co de Phone Number [facility] [address] [place] [address] [phone] * Slide Review (05/20/2024 10:46 AM EDT) Slide Review MANUAL DIFF [facility] 05/20/2024 10:4 6 AM EDT 05/20/2024 11:30 AM EDT us Generic External Data Provider LAB BLOOD ORDERAB LES Final Result [facility] [address] [place] [phone] * (ABNORMAL) CBC auto differential (05/20/2024 10:46 AM EDT) White Blood Count 15.9(H) 4.8 - 10.8 X10*3/uL [facility] Red Blood Count 3.64(L) 4.20 - 5.50 X10*6/uL [facility] Hemoglobin 11.5(L) 12.0 - 16.0 g/dl [facility] Hematocrit 35.8(L) 37.0 - 47.0 % [facility] Mean Corpuscular Volume 98.4(H) 80.0 - 98.0 fL [facility] Mean Corpuscular Hemoglobin 31.6 27.0 - 33.0 pg [facility] Mean Corpuscular HGB Conc 32.1 31.0 - 35.0 g/dl [facility] Red Cell Distribution Width 11.9 11.0 - 16.0 % [facility] Platelet Count 330 160 - 400 X10*3/uL [facility] Mean Platelet Volume 10.2 9.4 - 12.3 fL [facility] Neutrophils Percent Auto 91.0(H) 45 - 73 % [facility] Imm Gran Pct Auto 0.9(H) 0.0 - 0.4 % [facility] Lymphocytes Percent Auto 4.9(L) 20 - 40 % [facility] Monocytes Percent Auto 3.1 2 - 11 % [facility] Eosinophils Percent Auto 0.0 0 - 4 % [facility] Basophils Percent Auto 0.1 0 - 2 % [facility] NRBC Pct Auto 0.0 0.0 - 0.2 /100WBC [facility] Neutrophils Absolute Auto 14.4(H) 2.0 - 8.3 x10*3/uL [facility] Imm Gran Abs Auto 0.15(H) 0.00 - 0.03 X10*3/uL [facility] Lymphocytes Absolute Auto 0.8(L) 1.2 - 4.9 X10*3/uL [facility] Monocytes Absolute Auto 0.5 0.1 - 1.2 X10*3/uL [facility] Eosinophils Absolute Auto 0.0 0.0 - 0.4 X10*3/uL [facility] Basophils Absolute Auto 0.0 0.0 - 0.2 X10*3/uL [facility] NRBC Abs Auto 0.000 0.0 - 0.012 X10*3/uL [facility] 05/20/2024 10:4 6 AM EDT 05/20/2024 11:30 AM EDT us Generic External Data Provider LAB BLOOD ORDERAB LES Edited Result - Final [facility] [address] [place] [phone] documented in this encounter Visit Diagnoses Not on filedocumented in this encounter Additional Health Concerns Assessment Noted Time PHQ-9 Depression Total Score: 20 024 8:46 AM EDT documented as of this encounter Care Teams Wharf Labourer Relationship Specialty Start Date End Date Flower High MD [address] [place] [phone] PCP - General Internal Medicine 07/19/22 documented as of this encounter
--- OUTSIDE RECORDS SUMMARY | 2024-05-24 13:26 | XMS_ITS | Encounter Summary ---
Author Organization [email or web address] Address [address] [facility] [address] [place] [address] Care Team Providers Care Leadite Man Name Role Phone Flower High MD Primary Care Pro vider Encounter Details Date Type Department Care Team (Late st Contact Info) Description 05/21/2024 Telephone [facility] [place] [facility] [address] [place], [place] [phone] Flower High MD [address] [place], [place] [phone] Social History Tobacco Use Types Packs/Day Years [...] encounter Miscellaneous Notes * Telephone Encounter - Greta Angulo - 05/21/2024 1:37 PM EDT Erroneous Encounter documented in this encounter Plan of Treatment Upcoming Encounters Date Type Department Care Team (Late st Contact Info) Description 05/24/2024 3:00 PM EDT Clinical Support [address] [address] 05/28/2024 3:30 PM EDT Medication Management [address] [address] Catrachita Whiting, PharmD [address] [place] [address] 06/24/2024 1:15 PM EDT Office Visit [address] [address] Flower High MD [address] [place] [address] documented as of this encounter Visit Diagnoses Not on filedocumented in this encounter Additional Health Concerns Assessment Noted Time PHQ-9 Depression Total Score: 20 024 8:46 AM EDT documented as of this encounter Care Teams Leadite Man Relationship Specialty Start Date End Date Flower High MD [address] [place] [phone] PCP - General Internal Medicine 07/19/22 documented as of this encounter
--- OUTSIDE RECORDS SUMMARY | 2024-05-24 13:26 | XMS_ITS | Encounter Summary ---
Author Organization [email or web address] Address [address] [facility] [address] [place] [address] Care Team Providers Care Assembly Adjuster Name Role Phone Flower High MD Primary Care Pro vider Reason for Visit * Reason Comments Med Refill Encounter Details Date Type Department Care Team ([facility] st Contact Info) Description 01/09/2023 Refill [facility] 230 [place] [address] Flower High MD 230 [place], [place] [phone] Type 2 diabetes mellitus without complication, unspecified whether assisted insulin use ([facility]) Social History Tobacco Use Types Packs/Day Years [...] the past 12 months, has t he [employer], gas, oil or water [employer] threatened to shut off services in your [...] Description 05/24/2024 3:00 PM EDT Clinical Support [address] [address] 05/28/2024 3:30 PM EDT Medication Management [address] [address] Catrachita Whiting, PharmD [address] [place] [address] 06/24/2024 1:15 PM EDT Office Visit [facility] [address] [place] [phone] Flower High MD [address] [place] [address] documented as of this encounter Visit Diagnoses Diagnosis Type 2 diabetes mellitus without complication, unspecified whether assisted insulin use ([facility]) documented in this encounter Additional Health Concerns Assessment Noted Time PHQ-9 Depression Total Score: 0 01/07/20 23 1:19 PM EST documented as of this encounter Care Teams Assembly Adjuster Relationship Specialty Start Date End Date Flower High MD [address] [place] [phone] PCP - General Internal Medicine 07/19/22 documented as of this encounter
--- OUTSIDE RECORDS SUMMARY | 2024-05-24 13:26 | XMS_ITS | Encounter Summary ---
Author Organization [employer] Address [address] [facility] [address] [place] [address] Care Team Providers Care Line Erector Apprentice Name Role Phone Flower High MD Primary Care Pro vider Reason for Visit * Reason Comments Med Refill Encounter Details Date Type Department Care Team ([facility] st Contact Info) Description 04/07/2024 Refill [facility] [address] [place] [address] Meredith Srinivasan MD 230 [place], [place] [phone] Chronic midline low back pain without sciatica [...] Description 05/24/2024 3:00 PM EDT Clinical Support [address] [address] 05/28/2024 3:30 PM EDT Medication Management [facility] [address] [place] [phone] Catrachita Whiting, PharmD [address] [place] [address] 06/24/2024 1:15 PM EDT Office Visit [facility] [address] [place] [address] Flower High MD [address] [place] [address] documented as of this encounter Visit Diagnoses Diagnosis Chronic midline low back pain without sciatica documented in this encounter Additional Health Concerns Assessment Noted Time PHQ-9 Depression Total Score: 20 024 8:46 AM EDT documented as of this encounter Care Teams Line Erector Apprentice Relationship Specialty Start Date End Date Flower High MD [address] [place] [phone] PCP - General Internal Medicine 07/19/22 documented as of this encounter
--- OUTSIDE RECORDS SUMMARY | 2024-05-24 13:26 | XMS_ITS | Encounter Summary ---
Author Organization [employer] Address [address] [facility] [address] 7[address] [place] [address] Care Team Providers Care Director Of District Office Name Role Phone Flower High MD Primary Care Pro vider Encounter Details Date Type Department Care Team (Late st Contact Info) Description 05/20/2024 Orders Only [facility] 230 [place], [place] [phone] Flower High MD 230 [place], [place] [phone] Type 2 diabetes mellitus without complication, with long-term current use of insulin ([facility]) Social History Tobacco Use Types Packs/Day Years [...] Description 05/24/2024 3:00 PM EDT Clinical Support [address] [address] 05/28/2024 3:30 PM EDT Medication Management [address] [address] Catrachita Whiting, PharmD [address] [place] [address] 06/24/2024 1:15 PM EDT Office Visit [facility] [address] [place] [address] Flower High MD [address] [place] [address] documented as of this encounter Visit Diagnoses Diagnosis Type 2 diabetes mellitus without complication, with long-term current use of insulin ([facility]) documented in this encounter Additional Health Concerns Assessment Noted Time PHQ-9 Depression Total Score: 20 024 8:46 AM EDT documented as of this encounter Care Teams Director Of District Office Relationship Specialty Start Date End Date Flower High MD [address] [place] [phone] PCP - General Internal Medicine 07/19/22 documented as of this encounter
--- OUTSIDE RECORDS SUMMARY | 2024-05-24 13:26 | XMS_ITS | Encounter Summary ---
Author Organization [employer] Address [address] [facility] [address] 7[address] [place] [address] Care Team Providers Care Under Sheriff Name Role Phone Flower High MD Primary Care Pro vider Reason for Visit * Reason Comments Med Refill Encounter Details Date Type Department Care Team ([facility] st Contact Info) Description 05/30/2023 Refill [facility] 230 [place] [address] Flower High MD [address] [place] [address] Chronic midline low back pain without sciatica [...] Description 05/24/2024 3:00 PM EDT Clinical Support [address] [address] 05/28/2024 3:30 PM EDT Medication Management [address] [address] Catrachita Whiting, PharmD [address] [place] [address] 06/24/2024 1:15 PM EDT Office Visit [address] [address] Flower High MD [address] [place] [address] documented as of this encounter Visit Diagnoses Diagnosis Chronic midline low back pain without sciatica documented in this encounter Additional Health Concerns Assessment Noted Time PHQ-9 Depression Total Score: 0 01/07/20 23 1:19 PM EST documented as of this encounter Care Teams Under Sheriff Relationship Specialty Start Date End Date Flower High MD [address] [place] [phone] PCP - General Internal Medicine 07/19/22 documented as of this encounter
--- OUTSIDE RECORDS SUMMARY | 2024-05-24 13:26 | XMS_ITS | Encounter Summary ---
Author Organization [employer] Address [address] [facility] [address] [place] [address] Care Team Providers Care Software Development Intern Name Role Phone Flower High MD Primary Care Pro vider Encounter Details Date Type Department Care Team (Late st Contact Info) Description 03/05/2023 Orders Only [facility] 230 [place], [place] [phone] Flower High MD 230 [place] [address] Social History Tobacco Use Types Packs/Day Years [...] Description 05/24/2024 3:00 PM EDT Clinical Support [address] [address] 05/28/2024 3:30 PM EDT Medication Management [address] [address] Catrachita Whiting, PharmD [address] [place] [address] 06/24/2024 1:15 PM EDT Office Visit [address] [address] Flower High MD [address] [place] [address] documented as of this encounter Visit Diagnoses Not on filedocumented in this encounter Additional Health Concerns Assessment Noted Time PHQ-9 Depression Total Score: 0 01/07/20 23 1:19 PM EST documented as of this encounter Care Teams Software Development Intern Relationship Specialty Start Date End Date Flower High MD [address] [place] [phone] PCP - General Internal Medicine 07/19/22 documented as of this encounter
--- OUTSIDE RECORDS SUMMARY | 2024-05-24 13:26 | XMS_ITS | Encounter Summary ---
Author Organization [employer] Address [address] [facility] [address] [place] [address] Care Team Providers Care Public Policy Coordinator Name Role Phone Flower High MD Primary Care Pro vider Reason for Visit * Reason Onset Date Comments Nurse Triage 05/21/2024 Encounter Details Date Type Department Care Team (Late st Contact Info) Description 05/21/2024 Telephone [facility] 230 [place], [place] [phone] Arnel Lawrence MD 230 [place], [place] [phone] Nurse Triage Social History Tobacco Use Types Packs/Day Years [...] encounter Miscellaneous Notes * Telephone Encounter - Kate Rubio RN - 05/21/2024 10:48 AM EDT cooler man Assessment: Patient presents to walk-in center with abnormal labs, asthma, and hyperglycemia. Patient's daughter reports that they received a call indicating that her mother's blood glucose washigh and her potassium was abnormal. She reports they were advised to go to the ED but they did notgo. Labs drawn yesterday significant for WBC of 15.9, K of 5.2, Glucose of 415. Patient's PCP Dr. Garrett called patient yesterday. Her lantus was increased from 18 u to 22 u. Lispro 4 u was added with meals. Her glipizide was discontinued. Patient is still on tradjenta and metformin. Of note patient has been on prednisone 10 mg daily for approximately 2 months, per pulmonology. Additionally, daughter reports her mother's nebulizer stopped working. Patient has no new complaints/ concerns at this time. Vitals: BP 134/74 HR 98 RR 20 SpO2 98% on room air Temp 97.8 (oral) In Office Testing: Glucose 270 Plan: Report to Dr. Lawrence Patient to await provider evaluation. Daughter bilingual and declines additional translation documented in this encounter Plan of Treatment Upcoming Encounters Date Type Department Care Team (Late st Contact Info) Description 05/24/2024 3:00 PM EDT Clinical Support [address] [address] 05/28/2024 3:30 PM EDT Medication Management [address] [address] Catrachita Whiting, PharmD [address] [place] [address] 06/24/2024 1:15 PM EDT Office Visit [address] [address] Flower High MD [address] [place] [address] documented as of this encounter Visit Diagnoses Not on filedocumented in this encounter Additional Health Concerns Assessment Noted Time PHQ-9 Depression Total Score: 20 024 8:46 AM EDT documented as of this encounter Care Teams Public Policy Coordinator Relationship Specialty Start Date End Date Flower High MD [address] [place] [phone] PCP - General Internal Medicine 07/19/22 documented as of this encounter
--- OUTSIDE RECORDS SUMMARY | 2024-05-24 13:26 | XMS_ITS | Encounter Summary ---
Author Organization [employer] Address [address] [facility] [address] 7t [place] [address] Care Team Providers Care Anatomy Teacher Name Role Phone Flower High MD Primary Care Pro vider Reason for Visit * Reason Onset Date Comments Results 05/20/2024 Encounter Details Date Type Department Care Team ([facility] st Contact Info) Description 05/20/2024 Telephone [facility] 230 [place] [address] Flower High MD 230 [place], [place] [phone] Results Social History Tobacco Use Types Packs/Day [...] Miscellaneous Notes * Telephone Encounter - Ilene Johnson RN - 05/21/2024 10:25 AM EDT Pt has appt at [facility] with Dr Lawrence today. She picked up lispro last night at [facility] pharmacy, unable to apple picker lantus til due for refill but per phamracy has lantus at home. Request for nebulizer sent to DME specialist in separate encounter. * Telephone Encounter - Fidelia Donovan RN - 05/20/2024 4:40 PM EDT TC placed to pt and spoke with pt daughter Brooklyn with S director of market intelligence #[id number] to inform that per PCP the change in prescription for the insulin lantus and new prescription of Lispro has been sent tothe [facility] pharmacy. RN called [facility] pharmacy who confirms that the insulin will be ready for pickup today by 5 PM and pt confirmed that she will pick this up tonight. Brooklyn advised that the pharmacy does close by 6 PM and if she can't make it today to apple picker tomorrow morning. RN also strongly advised that the pt be seen in [facility] tomorrow morning to r/o any concerns from latest blood work results. Brooklyn stated understanding and was advised that the office will follow up on Friday to check on status of the pt * Telephone Encounter - Ilene Johnson RN - 05/20/2024 3:07 PM EDT Pt had BMP drawn today with potassium of 5.2, unchanged from 10 days ago. [facility] after level of 5.2 drawn on 05/11/24. She was called multiple times to remind to go to the lab. BMP today also showed critical glucose of 415. Per [facility], BMP panel was ordered by Dr Yang Betancourt (urology) and it is documented in [facility] that the critical lab was read toDr Yang Betancourt's office. Per recommendation from Dr Srinivasan at [facility] who ordered separate potassiumlab (not run as of yet), nurses to check in with Dr Garrett (PCP) regarding these labs. Gave warm hand off to Dr Garrett who plans to call the pt directly. documented in this encounter Plan of Treatment Upcoming Encounters Date Type Department Care Team (Late st Contact Info) Description 05/24/2024 3:00 PM EDT Clinical Support [address] [address] 05/28/2024 3:30 PM EDT Medication Management [address] [address] Catrachita Whiting, PharmD [address] [place] [address] 06/24/2024 1:15 PM EDT Office Visit [address] [address] Flower High MD [address] [place] [address] documented as of this encounter Visit Diagnoses Not on filedocumented in this encounter Additional Health Concerns Assessment Noted Time PHQ-9 Depression Total Score: 20 024 8:46 AM EDT documented as of this encounter Care Teams Anatomy Teacher Relationship Specialty Start Date End Date Flower High MD [address] [place] [phone] PCP - General Internal Medicine 07/19/22 documented as of this encounter
--- OUTSIDE RECORDS SUMMARY | 2024-05-24 13:26 | XMS_ITS | Encounter Summary ---
Author Organization [employer] Address 75 [facility] [address] 7t [place] [address] Care Team Providers Care Foot Cutter Name Role Phone Flower High MD Primary Care Pro vider Reason for Visit * Reason Onset Date Comments critical lab 05/20/2024 Encounter Details Date Type Department Care Team ([facility] st Contact Info) Description 05/20/2024 Telephone [facility] 230 [place] [address] Flower High MD 230 [place], [place] [phone] critical lab Social History Tobacco Use Types Packs/Day Years [...] encounter Miscellaneous Notes * Telephone Encounter - Geena Argueta RN - 05/20/2024 1:58 PM EDT Call received from Ranulfo at [facility] lab with critical blood glucose result of 415 today. Forwarded to provider and green team nurses. documented in this encounter Plan of Treatment Upcoming Encounters Date Type Department Care Team (Late st Contact Info) Description 05/24/2024 3:00 PM EDT Clinical Support [facility] [address] [place] [address] 05/28/2024 3:30 PM EDT Medication Management [facility] [address] [place] [address] Catrachita Whiting, PharmD 230 [place] [address] 06/24/2024 1:15 PM EDT Office Visit [facility] [address] [place] [address] Flower High MD 230 [place] [address] documented as of this encounter Visit Diagnoses Not on filedocumented in this encounter Additional Health Concerns Assessment Noted Time PHQ-9 Depression Total Score: 20 024 8:46 AM EDT documented as of this encounter Care Teams Foot Cutter Relationship Specialty Start Date End Date Flower High MD 230 [place] [address] PCP - General Internal Medicine 07/19/22 documented as of this encounter
--- OUTSIDE RECORDS SUMMARY | 2024-05-24 13:26 | XMS_ITS | Encounter Summary ---
Author Organization [employer] Address [address] [facility] [address] 7t [place] [address] Care Team Providers Care Post Acute Care Nurse Practitioner Name Role Phone Claudette Lorenzo RADHA Primary Care Provider [phone] Flower High MD Primary Care Pro vider Encounter Details Date Type Department Care Team (Late st Contact Info) Description 03/18/[address] [facility] [address] [place] [phone] Karlene Dow LPN Social History Tobacco Use [...] Encounters Date Type Department Care Team (Late Contact Info) Description 05/24/2024 3:00 PM EDT Clinical Support [address] [phone] 05/28/2024 3:30 PM EDT Medication Management [address] [address] Catrachita Whiting, AliyahD 230 [place] [address] 06/24/2024 1:15 PM EDT Office Visit [facility] 230 [place] [address] lFower iHgh MD 230 [place] [address] documented as of this encounter Visit Diagnoses Not on filedocumented in this encounter Care Teams Post Acute Care Nurse Practitioner Relationship Specialty Start Date End Date Claudette Lorenzo FNP [address] [place] [address] PCP - General Family Medicine 10/11/21 07/18/22 Flower High MD [address] [place] [address] PCP - General Internal Medicine 07/19/22 documented as of this encounter
--- OUTSIDE RECORDS SUMMARY | 2024-05-24 13:26 | XMS_ITS | Encounter Summary ---
Author Organization [employer] Address [address] [facility] [address] 7[address] [place] [address] Care Team Providers Care Mingler Operator Name Role Phone Flower High MD Primary Care Pro vider Reason for Visit * Reason Onset Date Comments Med Refill No Show 09/17/2022 Encounter Details Date Type Department Care Team (Late st Contact Info) Description 09/17/2022 Refill [facility] [address] [place] [address] Claudette Lorenzo, TAG PRESS OPERATOR [address] [place] [address] Allergic rhinitis, unspecified seasonality, unspecified trigger Social [...] Description 05/24/2024 3:00 PM EDT Clinical Support [address] [address] 05/28/2024 3:30 PM EDT Medication Management [address] [address] Catrachita Whiting, PharmD [address] [place] [address] 06/24/2024 1:15 PM EDT Office Visit [address] [address] Flower High MD [address] [place] [address] documented as of this encounter Visit Diagnoses Diagnosis Allergic rhinitis, unspecified seasonality, unspecified trigger documented in this encounter Care Teams Mingler Operator Relationship Specialty Start Date End Date Flower High MD [address] [place] [address] PCP - General Internal Medicine 07/19/22 documented as of this encounter
--- OUTSIDE RECORDS SUMMARY | 2024-05-24 13:26 | XMS_ITS | Encounter Summary ---
Author Organization [employer] Address [address] [facility] [address] 7[address] [place] [address] Care Team Providers Care Fountain Helper Name Role Phone Flower High MD Primary Care Pro vider Reason for Visit * Reason Onset Date Comments Nebulizer dispensed 05/21/2024 Encounter Details Date Type Department Care Team (Late st Contact Info) Description 05/21/2024 Telephone [facility] 230 [place] [address] Andra Ta RN Nebulizer dispensed Social History Tobacco Use Types Packs/Day Years [...] encounter Miscellaneous Notes * Telephone Encounter - Andra Ta RN - 05/21/2024 12:33 PM EDT Nebulizer teaching done with pt's daughter Brooklyn ( Kazakh speaking). Pt to have a dex com- this magnetic tape typewriter operator made a nurse visit for Friday at 3pm, pending approval, etc. In process of clarifying status with Green team nurse and PCP. Will confirm with pt's daughter Brooklyn as soon as clarified. @ [phone] documented in this encounter Plan of Treatment Upcoming Encounters Date Type Department Care Team (Late st Contact Info) Description 05/24/2024 3:00 PM EDT Clinical Support [facility] [address] [place] [address] 05/28/2024 3:30 PM EDT Medication Management [facility] [address] [place] [address] Catrachita Whiting, PharmD 230 [place] [address] 06/24/2024 1:15 PM EDT Office Visit [facility] [address] [place] [address] Flower High MD 230 [place], [place] [phone] documented as of this encounter Visit Diagnoses Not on filedocumented in this encounter Additional Health Concerns Assessment Noted Time PHQ-9 Depression Total Score: 20 024 8:46 AM EDT documented as of this encounter Care Teams Fountain Helper Relationship Specialty Start Date End Date Flower High MD 230 [place], [place] [phone] PCP - General Internal Medicine 07/19/22 documented as of this encounter
--- OUTSIDE RECORDS SUMMARY | 2024-05-24 13:26 | XMS_ITS | Encounter Summary ---
Author Organization [employer] Address [address] [facility] [address] 7[address] [place] [address] Care Team Providers Care Terrazzo Finisher Helper Name Role Phone Flower High MD Primary Care Pro vider Reason for Visit * Reason Comments Abnormal Labs Asthma Hyperglycemia Encounter Details Date Type Department Care Team (Late st Contact Info) Description 05/21/2024 10:40 AM EDT Office Visit [facility] [address] [place] [address] Arnel Lawrence MD 230 [place], [place] [phone] Type 2 diabetes mellitus without complication, with long-term current use of insulin ([facility]) (Primary Dx); Oral candidiasis; Asthma-COPD overlap syndrome; Hyperkalemia; Diabetes due to underlying condition w oth circulatory comp (CMS/HCC) Social History Tobacco Use Types Packs/Day Years [...] AM EDT documented as of this encounter Last Filed Vital Signs Vital Sign Reading Time Taken Comments Blood Pressure 134/74 05/21/2024 10:47 AM EDT Pulse 98 05/21/2024 10:47 AM EDT Temperature 36.6 ??C (97.8 ??F) 05/21/2024 10:47 AM E DT Respiratory Rate 20 05/21/2024 10:47 AM EDT Oxygen Saturation 98% 05/21/2024 10:47 AM EDT Inhaled Oxygen Concentration - - Weight - - Height - - Body Mass Index - - documented in this encounter Progress Notes * Arnel Lawrence MD - 05/21/2024 10:40 AM EDT Subjective Patient ID: Carole Tapia is a 73 y.o. female. Machine Bender: Shantal Here with daughter HPI Carole was advised to come to the walk-in clinic today as she declined PCP's advice to go to the emergency department yesterday. Yesterday Carole had lab tests drawn at [facility] lab that were ordered by her urologist. She also had lab tests done on May 10 that showed potassium 5.2. Yesterday her potassium was still 5.2 and her random blood glucose was 415, WBC= 15K. Carole's PCP advised the patient and daughter to go to the ED yesterday but they declined. Her PCP then advised increasing her Lantus to 22 units at bedtime from 18 units and start lispro 4 units with meals. Advised to stop glipizide. It was felt that her white blood count elevation could possibly be due to 2- month history of oral corticosteroid use, but her white blood count last month was normal. Differential showed left shift last month and yesterday. Patient states that her nebulizer machine is no longer working. Has history of asthma-COPD overlap syndrome, followed by Dr. Morales at [facility] pulmonology. She is taking chronic prednisone. Daughter states she is currently taking Augmentin that he prescribed several days ago for a 10-day course. Lives alone. Former smoker. 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 Gastroesophageal reflux disease Idiopathic osteoarthritis Mixed hyperlipidemia JIMBO (obstructive sleep apnea) Panic disorder with agoraphobia Diabetes due to underlying condition w oth circulatory comp (CMS/HCC) Left shoulder pain Health care maintenance Hypertension Memory loss Anemia Abnormal uterine bleeding Bilateral carpal tunnel syndrome Strongyloides stercoralis infection Hearing loss Urinary incontinence without sensory awareness Overweight (BMI 25.0-29.9) Former smoker The following portions of the chart were reviewed this encounter and updated as appropriate: Review of Systems Constitutional: Negative for fever. Respiratory: Positive for cough and wheezing. Negative for shortness of breath. Cardiovascular: Negative for chest pain. Gastrointestinal: Negative for abdominal pain. Skin: Negative for rash. Neurological: Negative for headaches. Objective Physical Exam Constitutional: Appearance: Normal appearance. HENT: Right Ear: Tympanic membrane, ear canal and external ear normal. Left Ear: Tympanic membrane, ear canal and external ear normal. Nose: Nose normal. Mouth/Throat: Mouth: Mucous membranes are moist. Pharynx: Oropharynx is clear. Comments: Exam of oropharynx reveals moderate oral candidiasis. Eyes: Conjunctiva/sclera: Conjunctivae normal. Pupils: Pupils are equal, round, and reactive to light. Cardiovascular: Rate and Rhythm: Normal rate and regular rhythm. Heart sounds: No murmur heard. Pulmonary: Effort: Pulmonary effort is normal. Breath sounds: Normal breath sounds. Musculoskeletal: General: Normal range of motion. Cervical back: No tenderness. Skin: Findings: No rash. Neurological: Mental Status: She is alert. Gait: Gait is intact. Psychiatric: Mood and Affect: Mood normal. Behavior: Behavior normal. Procedures Assessment/Plan Diagnoses and all orders for this visit: Type 2 diabetes mellitus without complication, with long-term current use of insulin ([facility]) Carole has started lispro and increased Lantus dose. Bqihi-yr-yhme random blood glucose is 270. Continue current regimen. Serum glucose recheck will be done on Friday. Will call patient with results. Patient was prescribed a Dexcom but has not received it. The walk-in clinic RN investigated and found that it could be dispensed but she just needs an RN to instruct her in its use. RN visit will be scheduled for instruction. Return to clinic for concerns. - POCT Glucose - FREESTYLE LITE test strip; TEST BLOOD SUGAR THREE TIMES DAILY DIRECTED - Basic Metabolic Panel; Future Oral candidiasis Oral candidiasis most likely due to chronic prednisone use. Patient has mild oral discomfort when Iquestioned her. Prescribed nystatin suspension. I showed her daughter the appearance of her mouth and pharynx and asked her to recheck 1 week afterfinishing nystatin as the patient did not complain of any symptoms in walk-in clinic. Return to clinic if not improving Asthma-COPD overlap syndrome The patient was prescribed a nebulizer from the [facility] vendor [employer]. Instructions on how to use the nebulizer were provided. Hyperkalemia Repeat BMP scheduled for Friday. I will call patient with the serum glucose and potassium results. Other orders - albuterol (2.5 MG/3ML) 0.083% nebulizer solution; Take 3 mL (2.5 mg) by nebulization every 6 (six) hours if needed for wheezing. - Trelegy Ellipta 200-62.5-25 MCG/ACT aerosol powder ; Take 2 puffs by mouth 2 times daily. - Ventolin HFA 108 (90 Base) MCG/ACT inhaler; Inhale 1-2 puffs every 4 (four) hours if needed for shortness of breath or wheezing. - Spacer/Aero-Holding Chambers (OptiChamber Dennise) misc; 1 each every 4 (four) hours if needed (asthma). - nystatin (Mycostatin) 422030 UNIT/ML suspension; Take 5 mL (500,000 Units) by mouth 4 times dailyfor 14 days. documented in this encounter Plan of Treatment Upcoming Encounters Date Type Department Care Team (Late st Contact Info) Description 05/24/2024 3:00 PM EDT Clinical Support [address] [phone] 05/28/2024 3:30 PM EDT Medication Management [address] [phone] Catrachita Whiting, PharmD [address] [place] [address] [phone] 06/24/2024 1:15 PM EDT Office Visit [address] [phone] Flower High MD [address] [place] [address] [phone] Scheduled Orders Name Type Priority Associated Diagnoses Orde r Schedule Basic Metabolic Panel Lab Routine Type 2 diabetes mellitus without complication, with long-term current use of insulin ([facility]) Expected: 05/21/2024 (Approximate), Expires: 05/21/2025 documented as of this encounter Procedures Procedure Name Priority Date/Time Associated Diagnosis Comments POCT GLUCOSE Routine 05/21/2024 11:03 AM EDT Type 2 diabetes mellitus without complication, with long-term current use of insulin ([facility]) documented in this encounter Results * (ABNORMAL) POCT Glucose (05/21/2024 11:03 AM EDT) Glucose Blood, POC 270(A) 60 - 200 mg/dL Blood Capillary blood specimen / Unknown 05/21/2024 11:03 AM EDT Arnel Lawrence MD POINT OF CARE TEST ENTER/EDIT OR DERABLES Final Result documented in this encounter Visit Diagnoses Diagnosis Type 2 diabetes mellitus without complication, with long-term current use of insulin ([facility])- Primary Oral candidiasis Candidiasis of mouth Asthma-COPD overlap syndrome Hyperkalemia Hyperpotassemia Diabetes due to underlying condition w oth circulatory comp ([facility]) documented in this encounter Additional Health Concerns Assessment Noted Time PHQ-9 Depression Total Score: 20 024 8:46 AM EDT documented as of this encounter Care Teams Terrazzo Finisher Helper Relationship Specialty Start Date End Date Flower High MD [address] [place] [phone] PCP - General Internal Medicine 07/19/22 documented as of this encounter
--- OUTSIDE RECORDS SUMMARY | 2024-05-24 13:26 | XMS_ITS | Encounter Summary ---
Author Organization [employer] Address [address] [facility] [facility] [address] [place] [address] Care Team Providers Care Ice Skating Coach Name Role Phone Claudette Lorenzo RADHA Primary Care Provider [phone] Flower High MD Primary Care Pro vider Encounter Details Date Type Department Care Team (Late st Contact Info) Description 05/06/2022 Orders Only [facility] [address] [place] [phone] Karlene Dow LPN Social History Tobacco Use [...] Description 05/24/2024 3:00 PM EDT Clinical Support [address] [phone] 05/28/2024 3:30 PM EDT Medication Management [address] [address] Catrachita Whiting, AliyahD 230 [place] [address] 06/24/2024 1:15 PM EDT Office Visit [facility] [address] [place] [address] Flower High MD 230 [place] [address] documented as of this encounter Visit Diagnoses Not on filedocumented in this encounter Care Teams Ice Skating Coach Relationship Specialty Start Date End Date Claudette Lorenzo FNP [address] [place] [address] PCP - General Family Medicine 10/11/21 07/18/22 Flower High MD [address] [place] [address] PCP - General Internal Medicine 07/19/22 documented as of this encounter
--- OUTSIDE RECORDS SUMMARY | 2024-05-24 13:26 | XMS_ITS | Encounter Summary ---
Author Organization [employer] Address [address] [facility] [address] [address] 7[address] [place] [address] Care Team Providers Care Gun Club Manager Name Role Phone Flower High MD Primary Care Pro vider Reason for Visit * Reason Onset Date Comments Results 05/11/2024 Encounter Details Date Type Department Care Team (Late st Contact Info) Description 05/11/2024 Telephone [facility] [address] [place] [address] Fidelia Donovan, LAZARO Results Social History Tobacco [...] the lab but according to chart and [employer] the lab never got drawn. The pt [...] these labs done tomorrow 05/19/2024 at the [facility]. This encounter will be forwarded to check on the status of this * Telephone Encounter - Fidelia Donovan RN - 05/17/2024 1:05 PM EDT Pt came to the ebindle Team Geek Squad Manager to inquire about the voicemail that was left for the pt. RN advised that the pt needs to have potassium rechecked per Dr. Srinivasan as it was slightly elevated on 05/11/2024. Pt states that she will proceed to the lab on the first floor at [facility] to have this done. Will postpone this message until 05/18 to check and see if the pt had labs done. * Telephone Encounter - Fidelia Donovan RN - 05/17/2024 9:39 AM EDT TC placed to pt and LVM to call back the office in regards to checking on potassium levels. Will keep this message in the [employer] Team inbox to make sure the pt checks * Telephone Encounter - Jeni Byrne RN - 05/11/2024 2:51 PM EDT Pt's daughter Brooklyn walked into [employer] team lobby regarding messages left on her [...] recheck. Daughter reports that pt saw her asbestos abatement worker at [facility] this morning. They gave her Abx, ordered labs, and ordered repeat CXR. Checked in [employer] and confirmed this information. Advised to continue [...] and increase water intake. Than britney. -[place] Covering for Dr. Garrett. Elevated BS, change [...] Description 05/24/2024 3:00 PM EDT Clinical Support [address] [address] 05/28/2024 3:30 PM EDT Medication Management [address] [address] Catrachita Whiting, PharmD [address] [place] [phone] 06/24/2024 1:15 PM EDT Office Visit [address] [address] Flower High MD [address] [place] [address] Scheduled Orders Name Type Priority Associated Diagnoses Orde r Schedule Potassium Lab Routine Serum potassium elevated Expected: 05/11/2024, Expires: 05/11/2025 documented as of this encounter Visit Diagnoses Diagnosis Serum potassium elevated Hyperpotassemia documented in this encounter Additional Health Concerns Assessment Noted Time PHQ-9 Depression Total Score: 20 12/16/ 024 8:46 AM EDT documented as of this encounter Care Teams Gun Club Manager Relationship Specialty Start Date End Date Flower High MD [address] [place] [phone] PCP - General Internal Medicine 07/19/22 documented as of this encounter
[2024-05-24 13:27] LABS: Potassium 5.1 mmol/L (3.3-5.1)
--- OUTSIDE RECORDS SUMMARY | 2024-05-24 13:27 | XMS_ITS | Clinical Summary ---
Author Organization [employer] Address [address] [place] [address] Care Team Providers Care Hardware Design Engineer Name Role Phone Flower High MD Primary [...] 3 Active Blood Glucose Monitoring Suppl (FreeStyle [place] Lite) w/Device kitIndications:T ype 2 diabetes mellitus without complication, with long-term current use of insulin ([facility]) Use to test blood sugar bid [...] DAILY FOR 7 DAYS Active Continuous Glucose Hoisting Engine Operator (FreeStyle Erinn 2 [place]) deviceIndication s:Diabetes due to underlying condition w oth circulatory comp ([facility]) Use as directed to monitor glucose ever 8 hours. 1 each Active Continuous Glucose Sensor (FreeStyle Erinn 2 Sensor) miscIndications: Diabetes due to underlying condition w oth circulatory comp ([facility]) Use as directed to monitor glucose ever 8 hours. Replace sensor every 14 days. 2 each Active glucose blood (FreeStyle Precision Mikel Test) test stripIndications :Diabetes due to underlying condition w oth circulatory comp ([facility]) Test blood sugar q 8 hours 100 each Active calcium 500 MG tablet Take 1 tablet (500 mg) by mouth with breakfast and with evening meal. 60 tablet 5 Active Roflumilast 500 MCG tablet Take 1 tablet by mouth Once per day. Active pen needle 32G x 4 mm miscIndications: Type 2 diabetes mellitus without complication, with long-term current use of insulin ([facility]) Use as instructed 30 each 12 Active Easy Touch Lancets 33G/Twist misc TEST BLOOD SUGAR 3 TIMES A DAY DIRECTED 100 each 11 024 Active Oyster Shell Calcium 500 MG tablet TAKE 1 TABLET BY MOUTH TWICE DAILY IN THE MORNING AND IN THE EVENING WITH MEALS 024 Active Continuous Glucose Hoisting Engine Operator (FreeStyle Erinn 3 [place]) deviceIndication s:Type 2 diabetes mellitus without complication, with long-term current use of insulin ([facility]) 1 each 3 times daily. As directed 1 each 024 Active Aspirin Low Dose 81 MG EC tabletIndication s:Type 2 diabetes mellitus without complications (CMS/HCC) TAKE 1 TABLET BY MOUTH EVERY EVENING [...] complication, with long-term current use of insulin ([facility]) USE DIRECTED TO TEST BLOOD SUGAR, CHANGE EVERY 15 DAYS 15 DAYS 2 each 11 025 Active Alcohol Swabs (Alcohol Prep) 70 % pads TEST BLOOD SUGAR THREE TIMES DAILY DIRECTED 100 each 2 025 Active Tradjenta 5 MG tabletIndication s:Type 2 diabetes mellitus without complication, unspecified whether press tender long goods insulin use ([facility]) TAKE 1 TABLET BY MOUTH EVERY MORNING [...] BY MOUTH EVERY MORNING 90 tablet Active Clotrimazole Anti-Fungal 1 % cream APPLY TO SKIN AND TOENAILS DAILY FOR 12 WEEKS Active ipratropium-albu terol (Duo-Neb) 0.5-2.5 mg/3 mL nebulizer solution Active insulin glargine (Lantus) 100 UNIT/ML penIndications:T ype 2 diabetes mellitus without complication, with long-term current use of insulin ([facility]) Inject 22 Units under the skin at bedtime. 15 mL 2 025 2025 Active insulin lispro (HumaLOG KWIKPEN) 100 UNIT/ML injection Inject 4 Units under the skin with breakfast, with lunch, and with evening meal. 1 each Active albuterol (2.5 MG/3ML) 0.083% nebulizer solution Take 3 mL (2.5 mg) by nebulization every 6 (six) hours if needed for wheezing. 75 mL 3 025 Active FREESTYLE LITE test stripIndications :Type 2 diabetes mellitus without complication, with long-term current use of insulin ([facility]) TEST BLOOD SUGAR THREE TIMES DAILY DIRECTED 100 strip 11 Active Trelegy Ellipta 200-62.5-25 MCG/ACT aerosol powder Take 2 puffs by mouth 2 times daily. 1 each 3 025 Active Ventolin HFA 108 (90 Base) MCG/ACT inhaler Inhale 1-2 puffs every 4 (four) hours if needed for shortness of breath or wheezing. 18 g 2 025 Active Spacer/Aero-Hold ing Chambers (OptiChamber Dennise) misc 1 each every 4 (four) hours if needed (asthma). 1 each 025 Active nystatin (Mycostatin) 502649 UNIT/ML suspension Take 5 mL (500,000 Units) by mouth 4 times daily for 14 days. 280 mL 025 2024 Active Alcohol Swabs (Alcohol Prep) 70 % pads USE THREE TIMES DAILY DIRECTED 100 each 11 024 2024 Discontinued Trelegy Ellipta 200-62.5-25 MCG/ACT aerosol powder 2024 Discontinued(R eorder (will not trigger notification to Pharmacy)) insulin glargine (Lantus) 100 UNIT/ML penIndications:T ype 2 diabetes mellitus without complication, with long-term current use of insulin ([facility]) Inject 18 Units under the skin at bedtime. 15 mL 2 2024 Discontinued(R eorder (will not trigger notification to Pharmacy)) FREESTYLE LITE test stripIndications :Type 2 diabetes mellitus without complication, with long-term current use of insulin ([facility]) TEST BLOOD SUGAR THREE TIMES DAILY DIRECTED 100 strip 11 2024 Discontinued(R eorder (will not trigger notification to Pharmacy)) Ventolin HFA 108 (90 Base) MCG/ACT inhaler Inhale 1-2 puffs every 4 (four) hours if needed for shortness of breath or wheezing. 18 g 2 2024 Discontinued(R eorder (will not trigger notification to Pharmacy)) cyanocobalamin (Vitamin B-12) 1000 MCG tabletIndication s:Routine health maintenance TAKE 1 TABLET BY MOUTH EVERY EVENING 90 tablet 2024 Discontinued Tradjenta 5 MG tabletIndication s:Type 2 diabetes mellitus without complication, unspecified whether press tender long goods insulin use ([facility]) TAKE 1 TABLET BY MOUTH EVERY MORNING 90 tablet 2024 Discontinued metFORMIN (Glucophage) 500 MG tablet TAKE [...] TABLET BY MOUTH EVERY MORNING 90 tablet 5 Discontinued glipiZIDE XL (Glucotrol XL) 10 MG 24 hr tablet TAKE 1 TABLET BY MOUTH EVERY MORNING WITH BREAKFAST 90 tablet 025 2024 Discontinued(O ther) albuterol (2.5 MG/3ML) 0.083% nebulizer solution 025 2024 Discontinued(R eorder (will not trigger notification to Pharmacy)) Active Problems Problem Noted Date Diagnosed Date [...] -Will monitor CBC today and refer to computer analyst supervisor at next apt (anemia) Abnormal uterine bleeding 11/13/2022 Assessment & Plan (11/13/2022 7:01 AM EDT): Pt was seen at the [facility] last mo for AUB. Already referred by provider to medical officer. Not gone yet. gave today information to [...] pt done in 2020 at [facility]-- ---- requested today record to Abiola Garcia able to obtain, referred today to GI [...] pt done in 2020 at [facility]-- ---- requested today record to Abiola [...] 09/2022: microalb - neg. -EKG 09/[address] [facility] - NSR, QTC 454, no ischemic changes, [...] of bladder ca-thinks saw last oncologist at [place] like 5 y ago -unsure if needed [...] of bladder ca-thinks saw last oncologist at [place] like 5 y ago -unsure if needed [...] care w psychiatrist and PT-seems f w [facility] clinic in this building -psych meds refilled by specialist Assessment & Plan (08/19/2022 5:41 PM EDT): Pt w hx of depression/anxiety and panic attacks Denies SI -continue care w psychiatrist and PT-seems f w [facility] clinic in this building -psych meds refilled by specialist Diabetes due to underlying condition w oth mehdi lcgonzález comp 04/10/2017 Assessment & Plan (05/20/2023 7:41 [...] -ophthalmology 10/2022 - mild non-proliferative diabetic retinopathy. -Head School Custodian: will refer at next apt -Pt already [...] choroidal nevus to f up in 01/2023 -Head School Custodian: will refer at next apt Allergic rhinitis [...] Asthma/COPD Overlap syndrome Pt is following w gas dispatcher Jitendra Morales -last note obtained on 02/2022 [...] med -advised pt to f w her gas dispatcher and I printed at last apt CT chest done in 2019 with abnormal findings -not mentioned in last pulm visit note from 02/2022 -pt will f w specialist about need to repeat image if not done before Assessment & Plan (08/19/2022 6:08 PM EDT): Asthma/COPD Overlap syndrome Pt is following w gas dispatcher Jitendra Morales -last note obtained on 02/2022 [...] ED -advised pt to f w her gas dispatcher and I printed today CT chest done [...] mild JIMBO per pulm note -f w gas dispatcher who referred back x sleep studies -pd to have test done -DELISA Luu gave info to pt to call to reschedule apt Assessment & Plan (08/19/2022 5:30 PM EDT): Pt has JIMBO-uses CPAP at night sleep study in 2018 : mild JIMBO per pulm note -f w gas dispatcher who referred back x sleep studies -pd [...] Encounters Date Type Department Care Team Description 05/21/2024 10:40 AM EDT Office Visit [facility] [address] [place] [phone] Arnel Lawrence MD Type 2 diabetes mellitus without complication, with long-term current use of insulin ([facility]) (Primary Dx); Oral candidiasis; Asthma-COPD overlap syndrome; Hyperkalemia; Diabetes due to underlying condition w oth circulatory comp ([facility]) 05/21/2024 Telephone [facility] [address] [place] [phone] Flower High MD Durable Medical Equipment 05/21/2024 Telephone [facility] [address] [place] [phone] Flower High MD 05/21/2024 Telephone [facility] [address] [place] [phone] Andra Ta, LAZARO Nebulizer dispensed 05/21/2024 Telephone [facility] [address] [phone] Arnel Lawrence MD Nurse Triage 05/20/2024 Orders Only [facility] [address] [place] [phone] Flower High MD Type 2 diabetes mellitus without complication, with long-term current use of insulin ([facility]) 05/20/2024 Telephone [facility] [address] [place] [address] Flower High MD Results 05/20/2024 Telephone [facility] [address] [place] [address] Flower High MD critical lab 05/20/2024 Orders Only GENERIC EXTERNAL DATA DEPARTMENT Provider, Generic External Data 05/11/2024 Telephone [facility] [address] [place] [address] Chantelle Agarwal MD 05/11/2024 Telephone [facility] [address] [place] [address] Fidelia Donovan RN Results 05/10/2024 Telephone [facility] [address] [place] [address] Henrry Torres MD 05/10/2024 Orders Only [facility] [address] [place] [address] Flower High MD 05/06/2024 Refill [facility] [address] [place] [address] Carli Sanabria ANP Primary hypertension 05/06/2024 Refill [facility] [address] [place] [address] Jim Bee MD Type 2 diabetes mellitus without complication, unspecified whether fpc insulin use ([facility]); Routine health maintenance 04/29/2024 Refill [facility] [address] [place] [address] Flower High MD 04/26/2024 3:00 PM EDT Office Visit [facility] [address] [place] [address] Juno, Mabel, OD Diabetes type 2, no ocular involvement ([facility]) (Primary Dx); Choroidal nevus of left eye; Dry eyes; Pseudophakia of both eyes; Reduced vision; Presbyopia 04/26/2024 Travel 04/20/2024 Refill [facility] [address] [place] [address] Carli Sanabria, GIBSON Type 2 diabetes mellitus without complication, with long-term current use of insulin ([facility]) 04/15/2024 Telephone [facility] [address] [place] [address] Flower High MD May Recall 04/13/2024 Refill [facility] [address] [place], [place] [phone] Meredith Srinivasna MD Chronic midline low back pain without sciatica 04/12/2024 Orders Only GENERIC EXTERNAL DATA DEPARTMENT Provider, Generic External Data 04/12/2024 Telephone [facility] [address] [place] [address] Jeni Byrne RNammunition specialist 04/07/2024 Refill [facility] [address] [place] [address] Meredith Srinivasan MD Chronic midline low back pain without sciatica 04/04/2024 Refill [facility] [address] [place], [place] [phone] Flower High MD 03/15/2024 Refill [facility] [address] [place], [place] [phone] Flower High MD from Last 3 Months [...] Description 05/24/2024 3:00 PM EDT Clinical Support [address] [phone] 05/28/2024 3:30 PM EDT Medication Management [address] [address] Catrachita Whiting, PharmD [address] [place] [phone] 06/24/2024 1:15 PM EDT Office Visit [facility] [address] [place] [phone] Flower High MD [address] [place] [phone] Health Maintenance Due Date Last Done Comments [...] 09/28/2024 09/29/2023 Depression Screening 12/16/2024 12/17/2023, 12/17/19 SDOH Screening 12/16/2024 12/17/2023 Lipid Panel 05/10/2025 05/10/2024, 12/18, 06/09/2023, Additional history exists Diabetes: Urine Protein Screening 05/20/2025 05/20/2024, 05/10/2024, 01/06/2024, Additional history exists Tobacco Screening 05/21/2025 05/21/2024 Mammogram 12/24/2025 12/25/2023, 11/17, 12/05/2022, Additional history [...] complication, with long-term current use of insulin ([facility]) COMPLETE BLOOD COUNT MAN DIF Routine 05/20/2024 10:46 AM EDT ALBUMIN, RANDOM URINE W/CREATININE Routine 05/20/2024 10:46 AM EDT BASIC METABOLIC PANEL Routine 05/20/2024 10:46 AM EDT SLIDE REVIEW Routine 05/20/2024 10:46 AM EDT CBC WITH AUTO DIFFERENTIAL Routine 05/20/2024 10:46 AM EDT XR CHEST 2 VIEWS Routine 05/10/2024 5:19 [...] nevus of left eye CYTOPATH-CELL ENHANCED Routine 1:30 PM EST HEPATITIS C AB W/REFL TO HCV RNA, QN, PCR Routine 01/06/2024 11:28 AM EST Annual physical exam BI MAMMOGRAM SCREENING TOMOSYNTHESIS BILATERAL Routine 12/25/2023 12:35 PM EST AMB REFERRAL TO PODIATRY Routine 09/29/2023 Type 2 diabetes mellitus without complication, with long-term current use of insulin ([facility]) 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 PANORAMIC RADIOGRAPHIC IMAGE Routine 04/17/2023 10:30 AM EST PERIODIC ORAL EVALUATION - ESTABLISHED PATIENT Routine 04/17/2023 10:30 AM EST HM COLONOSCOPY Routine 06/16/2012 INTRAORAL - COMPLETE SERIES OF RADIOGRAPHIC IMAGES Routine 03/29/2009 12:00 AM EST from Last 3 Months or Most Recently Relevant to Health Maintenance Results * (ABNORMAL) POCT Glucose (05/21/2024 11:03 AM EDT) Glucose Blood, POC 270(A) 60 - 200 mg/dL Blood Capillary blood specimen / Unknown 05/21/2024 11:03 AM EDT Arnel Lawrence MD POINT OF CARE TEST ENTER/EDIT OR DERABLES Final Result * Slide Review (05/20/2024 10:46 AM EDT) Only the most recent of2 resultswithin the time period is included. Slide Review MANUAL DIFF [facility] 05/20/2024 10:4 6 AM EDT 05/20/2024 11:30 AM EDT Generic External Data Provider LAB BLOOD ORDERAB LES Final Result [facility] [address] [place] [phone] * (ABNORMAL) Complete Blood Count Manual Diff [...] [facility] Platelet Estimate NORMAL NORMAL [facility] Platelet Morphology Comment NORMAL [facility] RBC Morphology NORMAL [facility] 05/20/2024 10:4 6 AM EDT 05/20/2024 11:30 AM EDT us Generic External Data Provider LAB BLOOD ORDERAB LES Final Result [facility] [address] [place], [place] [phone] * (ABNORMAL) Albumin, Random Urine W/Creatinine (05/20/2024 10:46 AM EDT) Only the most recent of2 resultswithin the time period is included. Creatinine, Urine 49.60 mg/dL [facility] Microalbumin Urine 23.0 mg/L H [facility] Microalbum Creatinine Ratio Ur 46.3(H) <30 ug/mg cr [facility] Comment:Albumin/Creatinine R atio Reference Ranges: Normal: < 30 ug/mg creatinine Microalbuminuria: 30 - 300 ug/mg creatinineClinical Albuminuria: > 300 ug/mg creatinine 05/20/2024 10:4 6 AM EDT 05/20/2024 11:16 AM EDT us Flower Miranda MD LAB URINE ORDERAB LES Final Result [facility] [address] [place] [phone] * (ABNORMAL) CBC auto differential (05/20/2024 10:46 AM EDT) Only the most recent of2 resultswithin the time period is included. White Blood Count 15.9(H) 4.8 - 10.8 [...] Final [facility] [address] [place] [phone] * (ABNORMAL) Basic Metabolic Panel (05/20/2024 [...] Kidney Disea se: Estimated GFR < 60 mL/min/1.50d4Vyjpit Kidney Disease: Estimated GFR < 15 mL/min/1.73m2 Glucose 415(HH) 60 - 115 mg/dL [facility] Comment:Critical value for t est(s): GLUR Results called to dean back by: DR HADLEY LEON Person calling:ROSSVV Date: 05/20/2024 Time:13:50 Calcium 10.1 8.4 - 10.2 mg/dL [facility] 05/20/2024 10:4 6 AM EDT 05/20/2024 11:30 AM EDT us Generic External Data Provider LAB BLOOD ORDERAB LES Final Result Performing Organization Address City/State/[facility] Co de Phone Number [facility] [address] [place] [phone] * XR Chest 2 Views (05/10/2024 5:19 PM EDT) Anatomical Region Laterality Modality Chest Radiographic Janice ging 05/10/2024 5:19 PM EDT Narrative 05/10/2024 5:20 PM EDT ? [facility] ?[address] ?[place] [address] ?XRay Report ? Signed ? Patient: Willie,Carole ?MR#: [id number] ? : 1950 ?Acct:[id number] ? Age/Sex: 73 / F ?ADM Date: 03/24/25 ? Loc: HO.LAB ? Attending Dr: Belkis Tian SAFETY CONSULTANT ? Ordering Physician: Belkis Tian SAFETY CONSULTANT ?? Date of Service: 05/10/24 ?? Procedure(s): XR chest 2V ?? Accession Number(s): [id number] ? cc: Flower High MD; Belkis Tian [...] by Ariadna Montoya MD in OV> ? 05/10/24 1719 ? DD/ ? TD/TT: 05/10/241718 ? Medical Device Assembler: ? Procedure Note Karla Zheng - 05/10/2024 [place] [address] XRay Report Signed Patient: Sherrie Tapia#: [id number] : 1950cct:[id number] Age/Sex: 73 / FADM Date: 05/10/24 Loc: HO.LAB Attending Dr: Belkis Tian NP Ordering Physician: Belkis Tian NP Date of Service: 05/10/24 Procedure(s): XR chest 2V Accession Number(s): [id number] cc: Flower High MD; Belkis Tian NP [...] in OV> 05/10/241718 DD/ 18 TD/TT: 05/10/241718 Medical Device Assembler: [facility] External Provider IMG XR PROCEDURES Final Result * Cancelled Urine (05/10/2024 4:49 PM EDT) Cancelled Urine SEE NOTE [facility] Comment:NO SPECIMEN WAS RECE IVED FOR MICARU 05/10/2024 4:49 PM EDT 05/10/2024 8:37 PM EDT Flower Miranda MD HISTORICAL/NON OR DERABLE LABS Final Result [facility] [address] [place] [phone] * Vitamin B12 (Cobalamin) and Folate Panel, Serum (05/10/2024 4:49 PM EDT) Vitamin B12 476 200 - 900 pg/mL [facility] Comment:NORMAL 200-900 PG/ML INDETERMINATE 160-199 PG/ML DEFICIENT < 160 PG/ML Folate 13.9 > or = 4.0 ng/mL [facility] Comment:Reference Values:> o r = 4.0 ng/mL< 4.0 ng/mL suggests folate deficiency Methotrexate, aminopterin and folinic acid(leucovorin) are chemotherapeutic agents whose molecularstructures are similar to folate; therefore, the Architectfolate assay cannot be used for patients using these drugs. Blood 05/10/2024 4:49 PM EDT 05/10/2024 4:50 PM EDT us Flower Miranda MD LAB BLOOD ORDERAB LES Final Result Performing Organization Address [facility] de Phone Number [facility] [address] [place] [phone] * (ABNORMAL) Immunofixation, Serum (05/10/2024 4:49 PM EDT) [facility] IMMUNOGLOBULIN G 551(A) 600 - 1540 mg/dL [facility] IMMUNOGLOBULIN A 260 70 - 320 mg/dL [facility] Immunoglobulin M 47(A) 50 - 300 mg/dL [facility] Comment:THIS TEST WAS PERFOR MED AT:[email or web address] [place] [phone] CLARK MD Immunofixation Result SEE NOTE [facility] Comment:No monoclonal protei ns detected. Blood Venous blood specimen / Unknown 05/10/2024 4:49 PM EDT 05/10/2024 4:50 PM EDT Flower Miranda MD LAB BLOOD ORDERAB LES Final Result Performing Organization Address [facility] de Phone Number [facility] [address] [place] [phone] * (ABNORMAL) Protein, Total and Protein??Electrophoresis (05/10/2024 4:49 PM EDT) Pathologist [facility] Prot Elec - Total Protein 6.3 6.1 - 8.1 g/dL [facility] Prot Elec - Albumin 3.9 3.8 - 4.8 g/dL [facility] Prot Elec - Alpha1 0.3 0.2 - 0.3 g/dL [facility] Prot Elec - Alpha2 0.8 0.5 - 0.9 g/dL [facility] Prot Elec - Beta 1 0.4 0.4 - 0.6 g/dL [facility] Prot Elec - Beta 2 0.4 0.2 - 0.5 g/dL [facility] Prot Elec - Gamma 0.5(A) 0.8 - 1.7 g/dL [facility] PES - Abn Protein Band 1 TNP [facility] PES-Abn Protein Band 2 TNP [facility] PES-Abn Protein Band 3 TNP [facility] Prot Elec - Interpretation SEE NOTE [facility] Comment:Consistent with hypo gammaglobulinemia. Serum free lightchains or urine immunofixation should be considered ifplasma cell dyscrasias are a possible clinicaldiagnosis.THIS TEST WAS PERFORMED AT:[email or web address] [place] [phone] CLRAK MD 05/10/2024 4:49 PM EDT 05/10/2024 4:50 PM EDT us Flower Miranda MD LAB BLOOD ORDERAB LES Final Result Performing Organization Address [facility] Co de Phone Number [facility] [address] [place] [phone] * B Type Natriuretic Peptide (BNP) (05/10/2024 4:49 PM EDT) [facility] B Type Natriuretic Peptide 23 <100 pg/mL [facility] 05/10/2024 4:49 PM EDT 05/10/2024 4:50 PM EDT us Generic External Data Provider LAB BLOOD ORDERAB LES Final Result Performing Organization Address [facility] Co de Phone Number [facility] [address] [place] [phone] * (ABNORMAL) Hemoglobin A1c (05/10/2024 4:49 PM EDT) [facility] Hemoglobin A1c 9.0(H) <6.0 % [facility] Comment:Hemoglobin A1C Refer ence Range Adults: 4.8 - 6.0 % Non diabetic: < 6.0 % Goal: < 7.0 %Additional Action Suggested: > 8.0 %Note: Hemoglobin A1c results are invalid for patients with abnormal amounts of HbF. Blood transfusions may impact the HbA1c concentration in the patient sample. Estimated Average Glucose 212 mg/dL [facility] Comment:eAG = Estimated ave rage glucose which is %A1C expressed asaverage glucose, using the formula of the [id number] Glucose study (ADAG), Diabetes Care, Vol.31,#8,Sep. 2007 Blood Venous blood specimen / Unknown 05/10/2024 4:49 PM EDT 05/10/2024 4:50 PM EDT us Flower Miranda MD LAB BLOOD ORDERAB LES Final Result [facility] [address] [place] [phone] * (ABNORMAL) Lipid Panel, Standard (05/10/2024 4:49 PM EDT) Triglycerides 179(H) <150 mg/dL [facility] Comment:Desirable Triglyceri de: less than 150 mg/dLBorderline High Triglyceride 150-199 mg/dLHigh Triglyceride: 200-499 mg/dLVery High Triglyceride: greater than or equal to 5OO mg/dL Cholesterol 236(H) <200 mg/dL [facility] Comment:Desirable Cholestero l: less than 200 mg/dLBorderline High Cholesterol: 200-239 mg/dLHigh Cholesterol: greater than 239 mg/dL LDL Cholesterol Calculated 102(H) <100 mg/dL [facility] Comment:Desirable LDL: less than 100 mg/dLNear Optimal/Above Optimal LDL: 110- 129 mg/dLBorderline High LDL: 130-159 mg/dLHigh LDL: 160-189 mg/dLVery High LDL: greater than or equal to 190 mg/dL HDL Cholesterol 99 >40 mg/dL [facility] Comment:Desirable HDL: great er than 40 mg/dL Note: This HDL assay may give artificially low results in patients with liver disease. Blood Venous blood specimen / Unknown 05/10/2024 4:49 PM EDT 05/10/2024 4:50 PM EDT Flower Miranda MD LAB BLOOD ORDERAB LES Final Result [facility] [address] [place] [phone] * (ABNORMAL) Comprehensive Metabolic Panel (05/10/2024 4:49 PM EDT) Sodium 136 135 - 145 mmol/L [facility] Potassium 5.2(H) 3.3 - 5.1 mmol/L [facility] Chloride 98 96 - 108 mmol/L [facility] Carbon Dioxide 29 22 - 29 mmol/L [facility] Anion Gap 14 12 - 20 [facility] Urea Nitrogen (BUN) 13 9 - 16 mg/dL [facility] Creatinine, Serum 1.23 0.5 - 1.4 mg/dL [facility] Estimated Glomerular Filt Rate 43 [facility] Comment:Chronic Kidney Disea se: Estimated GFR < 60 mL/min/1.48l5Pydqtf Kidney Disease: Estimated GFR < 15 mL/min/1.73m2 Glucose 394(HH) 60 - 115 mg/dL [facility] Comment:Critical value for t est(s): GLUR Results called to and readback by: DR AGARWAL Person calling: [employer] Date: 05/10/24 Time:180 Calcium 10.1 8.4 - 10.2 mg/dL [facility] Bilirubin, Total 0.2 0.0 - 1.0 mg/dL [facility] Aspartate Amino Transferase 20 5 - 31 U/L [facility] Alanine Aminotransferase 23 0 - 31 U/L [facility] Total Protein 6.7 6.5 - 8.0 g/dL [facility] Albumin Level 4.0 3.5 - 5.0 g/dL [facility] Alkaline Phosphatase 66 39 - 117 U/L [facility] Blood Venous blood specimen / Unknown 05/10/2024 4:49 PM EDT 05/10/2024 4:50 PM EDT us Flower Miranda MD LAB BLOOD ORDERAB LES Final Result Performing Organization Address City/State/[facility] Co de Phone Number [facility] [address] [place] [phone] * Cytopath-cell enhanced (04/12/2024 1:30 PM EST) 04/12/2024 1:30 PM EST 04/13/2024 11:55 AM EST Narrative [facility] - 04/15/2024 11:17 AM EST ----- ------- Name: Carole Tapia ? Age/Sex: 73/F ? : 1950 Unit#: [id number] ?? Attend Dr: Abran Hayes MD ?Re04/12/24 ?Status: DEP REF ? Location: .LAB ?Disch: ? ----- ------- SPEC : [id number] ? RECD: 04/13/24-5 ? STATUS: ??SOUT ? REQ NUM: [id number] ? HONEY: 04/12/24-0 ? SUBM DR: Abran Hayes MD ? ENTERED: ??04/13/24-1301 ?SP TYPE: Cytology ? OTHR DR: Flower [...] Copies To: ?? Abran Hayes MD ?? [facility] Urology Services ?? [address] ?? [place] [address] ?? [phone] ?? [email or web address] ?? Flower High MD ?? [address] ?? [place] [address] ?? [phone] ----- ------- Signed (signature on file) Fatimah Krebs 04/15/24 1117 ? ----- ------- ? END OF REPORT ? us Generic External Data Provider LAB CYTOLOGY YURY BUTCHER Final Result Performing Organization Address [facility] de Phone Number [facility] [address] [place] [phone] * Hepatitis C Antibody with Reflex to HCV, RNA, Quantitative, Real-Time PCR (01/06/2024 11:28 AM EST) Hepatitis C Antibody Nonreactive Nonreactive [facility] Comment:Antibodies to HCV no t detected; does not exclude early acuteHCV infection. Blood Venous blood specimen / Unknown 01/06/2024 11:28 AM EST 01/06/2024 1:08 PM EST us Flower Miranda MD LAB BLOOD ORDERAB LES Final Result Performing Organization Address [facility] Co de Phone Number [facility] [address] [place] [address] [phone] * BI Mammogram Screening Tomosynthesis Bilateral (12/25/2023 12:35 PM EST) Anatomical Region Laterality Modality Breast Bilateral Mammography 12/25/2023 12:3 5 PM EST Narrative 01/02/2024 4:11 PM EST ? [facility] ? [address] ?[place] [address] ? Mammography Report ? Signed ? Patient: Willie,Carole ?MR#: [id number] ? : 1950 ?Acct:[id number] ? Age/Sex: 72 / F ?ADM Date: 12/25/23 ? Loc: HO.MAMMO ? Attending Dr: Flower Miranda MD ? Ordering Physician: Flower High MD ?Re ?? sults: 2Benign Findings ? Date of Service: 12/25/23 ?Follow Up: 1 Year From Orig ?? inal Mammogram ? Procedure(s): MM tomosynthesis screening BI ?? Accession Number(s): [id number] ? cc: Flower High MD ? EXAMINATION: [...] DD/ 1235 ? TD/TT: 12/25/23 1253 ? Medical Device Assembler: ? Procedure Note Norm, Image - 01/02/2024 [facility] [address] [place] [address] Mammography Report Signed Patient: Sherrie Tapia#: [id number] : 3Acct:[id number] Age/Sex: 72 / FADM Date: 12/25/23 Loc: HO.MAMMO Attending Dr: Flower Miranda MD Ordering Physician: Flower High sults: 2Benign Findings Date of Service: 12/25/23Follow Up: 1 Year From Orig inal Mammogram Procedure(s): MM tomosynthesis screening BI Accession Number(s): [id number] cc: Flower High MD EXAMINATION: MM SCREENING [...] by: Fabiana Casiano DO 01/02/2024 04:08 PM [facility] Dictated By: Fabiana Casiano DO Signed By: <Electronically signed by Fabiana Casiano DO in OV> 01/02/24 1608 DD/ 1235 TD/TT: 12/25/23 1253 Medical Device Assembler: Flower Miranda MD IMG BI PROCEDURES Final Result * Referral to Podiatry (09/29/2023) Flower Miranda MD OUTPATIENT REFERR AL ORDERABLES Final Result * Colonoscopy (06/16/2012) Colonoscopy Normal Normal Historical Provider HEALTH MAINTENANCE Final Result from Last 3 Months or Most Recently Relevant to Health Maintenance Insurance [facility] ADULT Care Teams Hardware Design Engineer Relationship Specialty Start Date End Date Flower High MD [address] [place] [id number] PCP - General Internal Medicine 07/19/22
[2024-05-24 13:32] LABS: Anion Gap 14 (12-20); Blood Urea Nitrogen 13 mg/dL (9-16); Carbon Dioxide 30 mmol/L (22-29); Chloride 96 mmol/L (96-108); Estimated Glomerular Filt Rate 53; Glucose Random 274 mg/dL (60-115); Potassium 4.4 mmol/L (3.3-5.1); Sodium 136 mmol/L (135-145)
== END 2024-05-24 11:12 | disposition home or self-care (01) ==
LOC: HO.HHCL 11:11
PROVIDERS: Family Medicine; Visit Provider Emergency Medicine
DX: E11.9 Type 2 diabetes mellitus without complications (principal); E87.5 Hyperkalemia; Z79.4 Long term (current) use of insulin
CPT/HCPCS: 36415; 80048; 84132

== ENCOUNTER 2024-06-03 10:06 | Outpatient (AMB) | payer OTHER, SELFPAY ==
[2024-06-03 10:18] VITALS: BP 138/60; PULSE 116; O2SAT 95; BMI 27.6
--- NOTE | 2024-06-03 10:18 | MHC.OFFVIS ---
Vital Signs 06/03/24 10:18 Height 4 ft 11 in Weight 136 lb 10.986 oz BMI 27.6 BP 138/60 Blood Pressure Location Rt brachial Position Sitting Pulse 116 H Pulse Source Pulse Oximeter Pulse Oximetry (%) 95 Oxygen Delivery Method Room Air Intake Visit Reasons: Follow Up: Cystoscopy TURBT w/Dr. Hayes Allergies No Known Allergies [No Known Allergies*] Allergy (Verified 05/10/24 15:47) HPI Comments Details: The patient is a 73-year-old woman known COPD in addition to obstructive sleep apnea. Apparently she has had multiple sleep studies in the past going back to 2010. She has had issues with hypoxia at nighttime. She has daytime drowsiness and does have headaches in the morning. Moderate severity. Her Maitland score is elevated. Her last CPAP study was back in 2018 which she did have mild sleep apnea. The patient has become more symptomatic and she does carry cardiovascular risks so this point will repeat her study. I'm hoping home sleep study will be sufficient. In the meantime the patient continues to have shortness of breath she does use inhalers at home but is very confusing for her to know which 1 she is supposed to be using. I do think that we need to optimize respiratory therapy and improve her adherence and we can do this with trelegy. The patient has not had any recent pulmonary function study. She also has nasal congestion. She has had epistaxis. 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 She does use allergy medicines but still has significant congestion. Moderate severity. Complains of a postnasal drip and cough. We will try Astelin nasal spray. 10/27/2020 the patient is here for a pulmonary follow-up visit. She has had been having worsening respiratory symptoms. Has significant wheezing and chest congestion and cough. She has been like this now for few weeks. Seems to be getting worse. She had to stop the Daliresp as it was not helping. She also tried multiple numerous inhalers that have not been helpful. The only beneficial 1 was Bevespi. Will try her on Breztri at this at this time. In the meantime she continues to have significant daytime drowsiness. We did have her undergo a in-lab study. Her AHI was up to 30 consistent with severe sleep apnea. Patient needs to start CPAP therapy at this time. Will make arrangements with local DME company to start the therapy. In the meantime we did review her blood work demonstrating significant eosinophilia and also significant elevations in the IgE consistent with allergic asthma. The patient has required maximize respiratory therapy with partial resolution her symptoms and frequent prednisone. The patient is a great candidate for biologic therapy. She had been on Xolair in the past and that appear to be effective for her. I do believe that she brought will respond better to Dupixent at this time. 10/12/2021 The patient is here for a pulmonary follow up visit. She continues to struggle with her asthma. Developed worsening wheezing and productive cough. Prior to this she was doing well for several months. Unfortunately, she is grieving the of her daughter. Could not start the Daliresp. She was started on Dupixent and she feels that is working. We will continue to monitor her progress. If she continues to require prednisone then we could consider switching to Tezspire. 02/25/2022 the patient is here for a pulmonary follow-up visit. She is having worsening respiratory symptoms. Complaining of chest tightness and wheezing. Moderate severity. She was responding very well to the Dupixent. She was no longer requiring prednisone. Her respiratory symptoms were much improved. However for some reason she has not able to get the injections anymore. Will look into it further. Hoping for her to continue biologic therapy. The meantime she does have significant wheezing and will start her on prednisone. She also get her CPAP. The CPAP therapy will be affecting beneficial. Although still not adjusted for her. She is having issues because is having too much water draining to her mask. I also see that she is using a nasal pillow mask. This is that appear to be effective for her. Therefore I did provide her with an F20 fullface mask. We continue with the APAP at the current settings but I brought the humidity down to 1. I am hopeful that she can tolerated better. She will bring in the next few months in order to make sure that she is doing better with. She is aware that she needs to use it at least 4 hours a day. 04/25/2023 the patient is here for sick visit. She has had worsening respiratory symptoms for the last week. She is feeling that she is getting worse. Significant chest tightness and some wheezing. Moderate severity. Unfortunately her nebulizer tubing broken she has not been able to use it. She does have a Trelegy inhaler she has been using also her rescue inhaler. These therapies only been partially helpful. And only for short period of time. The patient has been struggling with significant wheezing. During the last visit she did require prednisone. Prior to that she had been on biologic therapies which have been very helpful. At this time will provide her with a nebulizer treatment in the office. After the treatment she was able to improves therefore will send her additional prednisone and antibiotics in the pharmacy. Patient also took the tubing were her to use her nebulizer home to to 4 times a day. If the patient is no better she will call the office for an earlier assessment. Although I so follow-up in 4-6 months. 10/27/2023 the patient is here for a pulmonary follow-up visit. She continues to struggle with breathing. Significant wheezing and chest congestion. Moderate to severe. She had been on multiple courses of prednisone. She was approved to restart her Dupixent but she did not get the prescription filled as of yet. I did walk the family to the pharmacy and she was able to pick it up. Therefore she can start as soon as possible. In the meantime she does have significant wheezing on examination and she must be treated for an asthma exacerbation at this time. She also has chronic bronchitis. Therefore will start azithromycin 3 times a week for chronic bronchitis treatment. She will need to get an EKG however. She will continue with the current respiratory therapy including Trelegy. The patient is also a former smoker. She Only quit this year. She has smoked for more than 40 years. She does have a greater than 30 pack-year history of smoking so therefore will go ahead and refer her to the lung cancer screening program at this time. 12/25/2023 the patient is here for a pulmonary follow-up visit. She is struggling with breathing again. She did get the Dupixent the last time but then she did not get it mailed to her house so she was not taking it regularly. She continues use her respiratory therapy with partial improvement. She also was using the azithromycin 3 times a week without any significant improvement. Therefore she can stop that and will going to send her different antibiotic to the pharmacy. The patient is going to require Solu-Medrol today she has significant wheezing. And she needs to continue the Dupixent every 2 weeks more coherently. When she returns in 6-8 weeks will reassess. If she continues to have difficulties will switch over her biologic to a different agent. Will go ahead have her get an x-ray today. Consider bronchoscopy to better address the airways further if she does not getting any improvement. 04/09/2024 the patient is here for a pulmonary follow-up visit. She is having hard time breathing for the last couple weeks. She has been having hard time sleeping because of the shortness of breath. Moderate to severe. She has been using her Dupixent injections every 2 weeks. For some reason she ran out of her inhalers. Will go ahead and send him off to the pharmacy again. But at this point the patient is requiring Solu-Medrol prednisone every visit. Therefore the Dupixent is not helping her. Will go ahead and switch over to test prior at this time. In the meantime she will receive Solu-Medrol today for the significant wheezing and will start a course of antibiotics and prednisone. If the patient is to worsen she needs to go to the ER. We also did look at her CT scan of the chest which was personally by me. She had as far as the lung cancer screening program. Everything stable. [facility] Medical History Personal history of nicotine dependence Osteopenia Bladder cancer (~2018) Hypertension Diabetes mellitus Asthma-COPD overlap syndrome JIMBO (obstructive sleep apnea) Nicotine dependence, cigarettes, uncomplicated Bilateral anterior knee pain Surgical History History of transurethral resection of bladder tumor (TURBT) History of esophagogastroduodenoscopy (EGD) History of colonoscopy Social History (Updated 05/10/24 @ 15:55 by Lizzie Izquierdo LPN) Household Members: None Housing: Apartment Do you presently have visiting nurse or other home services: Yes ([employer] MANA[employer]) Patient Tobacco Use Status: Current everyday Tobacco user Tobacco use type: Cigarette Cigarettes Per Day: 1 Years Smoked: (onset 15yr,s 1/2-1ppd x 50yrs, 35pyh, quit 2020) service: No Current occupational status: 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 and disabled 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 Review of Systems Const Denies night sweats ENT Denies change in voice, Denies lip swelling, Denies mouth pain, Reports nasal congestion, Reports nasal discharge and Denies tongue swelling Card Denies chest pain and Reports dyspnea on exertion Resp Reports chest congestion, Reports cough, Denies hemoptysis, Reports dyspnea on exertion and Reports wheezing GI Denies abdominal pain Musc Denies no additional complaints Neuro Denies Neuro-related abnormal movements Psych Denies no additional complaints Kiran/Lymph Denies easy bleeding and Denies lymphadenopathy Aller/Immun Denies lip swelling, Denies tongue swelling and Reports wheezing Physical Exam Vital Signs: Last Vital Signs Pulse 116 H 06/03/24 10:18 BP 138/60 06/03/24 10:18 Pulse Ox 95 06/03/24 10:18 Oxygen Delivery Method Room Air 06/03/24 10:18 BMI result Body Mass Index 27.6 Const General: alert Neck Neck: Yes normal visual inspection, Yes full ROM and Yes no lymphadenopathy Chest Chest palpation & inspection: normal inspection of the chest Resp Effort & Inspection: prolonged expiratory phase Auscultation: wheezes and diminished lung sounds Cardio Rate: regular rate Rhythm: regular rhythm Heart sounds: S1 normal heart sound present and S2 normal heart sound present GI Palpation (GI): Soft to palpation and nontender Auscultation: normal bowel sounds Skin General skin exam: rashes and/or lesions noted Assessment & Plan Assessment & Plan (1) Asthma: Code(s): J45.909 - Unspecified asthma, uncomplicated Category: Medical Qualifiers: Asthma severity: severe Asthma persistence: persistent Asthma complication type: with acute exacerbation Qualified Code(s): J45.51 - Severe persistent asthma with (acute) exacerbation (2) Asthma-COPD overlap syndrome: Code(s): J44.9 - Chronic obstructive pulmonary disease, unspecified Category: Medical (3) JIMBO (obstructive sleep apnea): Code(s): G47.33 - Obstructive sleep apnea (adult) (pediatric) Category: Medical Plan continue Prednisone 10mg daily Start Duoneb QID start BUdesonide BID Nebulizer with albuterol 3-4 times aday continue Trelegy 200mcg JULIO as needed Continue Claritin/astelin/Singulair Continue Fluticasone NS continue APAP, provided her a med F20 mask continue Tezspire smoking cessation Preop: The patient is medically optimize from a respiratory standpoint. tolerating the 10 mg of prednisone. She also tolerated the Tezspire has she received the 1st dose. Patient also continues on Trelegy. She will start the DuoNeb along with budesonide to provide bronchodilation. The patient should respond to this amount of therapy to be able to tolerate anesthesia. The patient is scheduled to have her procedure under anesthesia in a couple weeks. I am hopeful that this regimen provide her the best relief to be able to move forward and have her diagnostic intervention. The patient does have a risk for perioperative pulmonary complications which include; hypoxia, atelectasis, pneumonia, bronchospasms. At this point she is medically optimized may be able to proceed as long as her symptoms do not get worse. F/U 2 months Medications: New budesonide 0.5 mg (2 mL) inhalation BID 30 days 120 mL 11RF J44.9 - Chronic obstructive pulmonary disease, unspecified ipratropium-albuterol 0.5 mg-3 mg(2.5 mg base)/3 mL 3 mL inhalation QID 30 days 360 mL 11RF J44.9 - Chronic obstructive pulmonary disease, unspecified Coding Level of Care Code Est Pt Level 4 (30327) Complex EM visit Add On G2211 Diagnoses Severe persistent asthma with acute exacerbation J45.51 Asthma severity: severe Asthma persistence: persistent Asthma complication type: with acute exacerbation Asthma-COPD overlap syndrome J44.9 JIMBO (obstructive sleep apnea) G47.33 Time Spent (min) 17
== END 2024-06-03 10:47 | disposition home or self-care (01) ==
LOC: HO.HPS 10:07
PROVIDERS: PCP Student in an Organized Health Care Education/Training Program; Visit Provider Hospitalist
DX: J45.51 Severe persistent asthma with (acute) exacerbation (principal); J44.9 Chronic obstructive pulmonary disease, unspecified; G47.33 Obstructive sleep apnea (adult) (pediatric)
CPT/HCPCS: 99214; G2211

== ENCOUNTER → 2024-06-03 10:06 | Outpatient (BNVA) | payer OTHER, SELFPAY | PROVIDERS: PCP Student in an Organized Health Care Education/Training Program; Visit Provider Hospitalist | DX: J44.9 Chronic obstructive pulmonary disease, unspecified (principal); J45.51 Severe persistent asthma with (acute) exacerbation; G47.33 Obstructive sleep apnea (adult) (pediatric); Z99.89 Dependence on other enabling machines and devices | CPT/HCPCS: 99212 ==

== ENCOUNTER → 2024-06-22 12:51 | Day surgery (SDC) | payer OTHER, SELFPAY ==
--- OUTSIDE RECORDS SUMMARY | 2024-04-27 16:52 | XMS_ITS | Encounter Summary ---
Author Organization [employer] Address [address] 7t [place] [address] Care Team Providers Care Milk Bottler Name Role Phone Flower High MD Primary Care Pro vider Reason for Visit * Reason Comments Diabetic Eye Exam Encounter Details Date Type Department Care Team (Late st Contact Info) Description 04/26/2024 3:00 PM EDT Office Visit [facility] OPTOMETRY [address] [place] [address] Juno, Mabel, OD [address] [place] [address] Diabetes type 2, no ocular involvement (CMS/HCC) (Primary Dx); Choroidal nevus of left eye; Dry eyes; Pseudophakia of both eyes; Regular astigmatism of both eyes Social History Tobacco Use Types Packs/Day Years [...] Care Team (Late st Contact Info) Description 06/24/2024 1:15 PM EDT Office Visit [facility] MEDICINE [address] [place] [phone] Flower High MD [address] [place] [address] documented as of this encounter Visit Diagnoses Diagnosis Diabetes type 2, 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
--- OUTSIDE RECORDS SUMMARY | 2024-04-27 16:52 | XMS_ITS | Encounter Summary ---
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 ([facility]) Social History Tobacco Use Types Packs/Day [...] the past 12 months, has t he [employer], gas, oil or water company threatened to [...] Description 06/24/2024 1:15 PM EDT Office Visit [facility] MEDICINE [address] [place] [address] Flower High MD [address] [place] [address] documented as of this encounter Visit Diagnoses Diagnosis 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
--- OUTSIDE RECORDS SUMMARY | 2024-04-27 16:52 | XMS_ITS | Encounter Summary ---
Author Organization [employer] Address [address] 7t [place] [address] Care Team Providers Care Manager Call Center Name Role Phone Flower High MD Primary Care Pro vider Reason for Visit * Reason Onset Date Comments Prior Authorization 04/12/2024 Encounter Details Date Type Department Care Team (Late st Contact Info) Description 04/12/2024 Telephone [facility] MEDICINE 230 [place] [address] Jeni Byrne, RN 230 [place] [address] Prior Authorization Social History Tobacco Use Types [...] 3 reader and sensors faxed to [facility]. Confirmation received. * Telephone Encounter - Ilene Oviedo RN - 04/13/2024 3:17 PM EST Received denial from insurance [email or web address] for [employer]estyle Erinn 2 sensors/reader. However, nursing [...] Description 06/24/2024 1:15 PM EDT Office Visit [facility] MEDICINE 230 [place] [address] Flower High MD 230 [place] [address] documented as of this encounter Visit Diagnoses Not on filedocumented in this encounter Additional Health Concerns Assessment Noted Time PHQ-9 Depression Total Score: 20 024 8:46 AM EDT documented as of this encounter Care Teams Manager Call Center Relationship Specialty Start Date End Date Flower High MD [address] [place] [phone] PCP - General Internal Medicine 07/19/22 documented as of this encounter
--- OUTSIDE RECORDS SUMMARY | 2024-04-27 16:52 | XMS_ITS | Encounter Summary ---
Author Organization [employer] Address [address] 7t [place] [address] Care Team Providers Care Funeral Director And Embalmer Name Role Phone Flower High MD Primary Care Pro vider Reason for Visit * Reason Comments Med Change Request Encounter Details Date Type Department Care Team (Late st Contact Info) Description 04/20/2024 Refill [facility] MEDICINE 230 [place] [address] Carli Sanabria, ANP 230 [place], [place] [phone] Type 2 diabetes mellitus without complication, with long-term current use of insulin ([facility]) Social History Tobacco Use Types Packs/Day Years [...] Description 06/24/2024 1:15 PM EDT Office Visit [facility] MEDICINE [address] [place] [address] Flower High MD [address] [place] [phone] documented as of this encounter Visit Diagnoses Diagnosis Type 2 diabetes mellitus without complication, with long-term current use of insulin ([facility]) documented in this encounter Additional Health Concerns Assessment Noted Time PHQ-9 Depression Total Score: 20 024 8:46 AM EDT documented as of this encounter Care Teams Funeral Director And Embalmer Relationship Specialty Start Date End Date Flower High MD [address] [place] [phone] PCP - General Internal Medicine 07/19/22 documented as of this encounter
--- OUTSIDE RECORDS SUMMARY | 2024-04-27 16:52 | XMS_ITS | Encounter Summary ---
Author Organization [employer] Address [address] [facility] [address] 7t [place] [address] Care Team Providers Care Body Specialist Name Role Phone Flower High MD Primary Care Pro vider Reason for Visit * Reason Comments Med Refill Encounter Details Date Type Department Care Team ([facility] st Contact Info) Description 04/13/2024 Refill [facility] MEDICINE 230 [place] [address] Meredith Srinivasan MD 230 [place], [place] [phone] Chronic midline low back pain without sciatica [...] Description 06/24/2024 1:15 PM EDT Office Visit [facility] MEDICINE [address] [place] [phone] Flower High MD [address] [place] [phone] documented as of this encounter Visit Diagnoses Diagnosis Chronic midline low back pain without sciatica documented in this encounter Additional Health Concerns Assessment Noted Time PHQ-9 Depression Total Score: 20 024 8:46 AM EDT documented as of this encounter Care Teams Body Specialist Relationship Specialty Start Date End Date Flower High MD [address] [place] [address] [phone] PCP - General Internal Medicine 07/19/22 documented as of this encounter
--- OUTSIDE RECORDS SUMMARY | 2024-04-27 16:52 | XMS_ITS | Encounter Summary ---
Author Organization [employer] Address [address] [place] [address] 7 [place] [address] Care Team Providers Care Accounting/Finance Tutor Name Role Phone Claudette Lorenzo Primary Care Provider [phone] Flower High MD Primary Care Pro vider Encounter Details Date Type Department Care Team (Late st Contact Info) Description 05/06/2022 Orders Only [facility] MEDICINE [address] [place] [phone] Karlene Dow LPN Social History Tobacco Use [...] Description 06/24/2024 1:15 PM EDT Office Visit [facility] MEDICINE [address] [place] [address] [phone] Flower High MD 230 [place], [place] [phone] documented as of this encounter Visit Diagnoses Not on filedocumented in this encounter Care Teams Accounting/Finance Tutor Relationship Specialty Start Date End Date Claudette Lorenzo FNP 230 [place] [address] PCP - General Family Medicine 10/11/21 07/18/22 Flower High MD [address] [place] [phone] PCP - General Internal Medicine 07/19/22 documented as of this encounter
--- OUTSIDE RECORDS SUMMARY | 2024-04-27 16:52 | XMS_ITS | Encounter Summary ---
Author Organization [employer] Address [address] 7t [place] [address] Care Team Providers Care Parts Advisor Name Role Phone Flower High MD Primary Care Pro vider Encounter Details Date Type Department Care Team (Late st Contact Info) Description 03/05/2023 Orders Only [facility] 230 [place], [place] [phone] Flower High MD 230 [place] [address] Social History Tobacco Use Types Packs/Day Years [...] Description 06/24/2024 1:15 PM EDT Office Visit [facility] MEDICINE [address] [place] [address] Flower High MD [address] [place] [address] documented as of this encounter Visit Diagnoses Not on filedocumented in this encounter Additional Health Concerns Assessment Noted Time PHQ-9 Depression Total Score: 0 01/07/20 1:19 PM EST documented as of this encounter Care Teams Parts Advisor Relationship Specialty Start Date End Date Flower High MD [address] [place] [phone] PCP - General Internal Medicine 07/19/22 documented as of this encounter
--- OUTSIDE RECORDS SUMMARY | 2024-04-27 16:52 | XMS_ITS | Encounter Summary ---
Author Organization [employer] Address [address] 7t [place] [address] Care Team Providers Care Rubbish Collector Name Role Phone Flower High MD Primary Care Pro vider Reason for Visit * Reason Comments Med Refill Encounter Details Date Type Department Care Team ([facility] st Contact Info) Description 04/07/2024 Refill [facility] MEDICINE 230 [place] [address] Meredith Srinivasan MD 230 [place], [place] [phone] Chronic midline low back pain without sciatica [...] Description 06/24/2024 1:15 PM EDT Office Visit [facility] MEDICINE [address] [place] [address] [phone] Flower High MD [address] [place] [phone] documented as of this encounter Visit Diagnoses Diagnosis Chronic midline low back pain without sciatica documented in this encounter Additional Health Concerns Assessment Noted Time PHQ-9 Depression Total Score: 20 024 8:46 AM EDT documented as of this encounter Care Teams Rubbish Collector Relationship Specialty Start Date End Date Flower High MD [address] [place] [address] [phone] PCP - General Internal Medicine 07/19/22 documented as of this encounter
--- OUTSIDE RECORDS SUMMARY | 2024-04-27 16:52 | XMS_ITS | Encounter Summary ---
Author Organization [employer] Address [address] [facility] [address] [place] [address] Care Team Providers Care Bindery Leadperson Name Role Phone Flower High MD Primary Care Pro vider Reason for Visit * Reason Comments Med Refill Encounter Details Date Type Department Care Team ([facility] st Contact Info) Description 04/04/2024 Refill [facility] MEDICINE [address] [place] [address] Flower High MD [address] [place], [place] [phone] Social History Tobacco Use Types Packs/Day Years [...] Description 06/24/2024 1:15 PM EDT Office Visit [facility] MEDICINE [address] [place] [address] [phone] Flower High MD [address] [place] [phone] documented as of this encounter Visit Diagnoses Not on filedocumented in this encounter Additional Health Concerns Assessment Noted Time PHQ-9 Depression Total Score: 20 024 8:46 AM EDT documented as of this encounter Care Teams Bindery Leadperson Relationship Specialty Start Date End Date Flower High MD [address] [place] [address] [phone] PCP - General Internal Medicine 07/19/22 documented as of this encounter
--- OUTSIDE RECORDS SUMMARY | 2024-04-27 16:52 | XMS_ITS | Encounter Summary ---
Author Organization [employer] Address [address] [place] [address] 7 [place] [address] Care Team Providers Care Glue Jointer Operator Name Role Phone Claudette Lorenzo Primary Care Provider [phone] Flower High MD Primary Care Pro vider Encounter Details Date Type Department Care Team (Late st Contact Info) Description 03/18/2022 Orders Only [facility] MEDICINE [address] [place] [phone] Karlene Dow LPN Social History Tobacco Use [...] Description 06/24/2024 1:15 PM EDT Office Visit [facility] [address] [place] [address] [phone] Flower High MD [address] [place], [place] [phone] documented as of this encounter Visit Diagnoses Not on filedocumented in this encounter Care Teams Glue Jointer Operator Relationship Specialty Start Date End Date Claudette Lorenzo FNP [address] [place] [address] PCP - General Family Medicine 10/11/21 07/18/22 Flower High MD [address] [place] [phone] PCP - General Internal Medicine 07/19/22 documented as of this encounter
--- OUTSIDE RECORDS SUMMARY | 2024-04-27 16:52 | XMS_ITS | Encounter Summary ---
Author Organization [employer] Address [address] 7[address] [place] [address] Care Team Providers Care Cork Tipper Name Role Phone Flower High MD Primary Care Pro vider Encounter Details Date Type Department Care Team (Late st Contact Info) Description 04/12/2024 Orders Only GENERIC EXTERNAL DATA DEPARTMENT Provider, Generic External Data Social History Tobacco Use Types Packs/Day Years [...] [facility] [address] [place] [phone] Flower High MD [address] [place] [address] documented as of this encounter Procedures Procedure Name Priority Date/Time Associated Diagnosis Comments CYTOPATH-CELL ENHANCED Routine 04/12/2024 1:30 PM EST documented in this encounter Results * Cytopath-cell enhanced (04/12/2024 1:30 PM EST) 04/12/2024 1:30 PM EST 04/13/2024 11:55 AM EST [facility] - 04/15/2024 11:17 AM EST ----- ------- Name: Carole Tapia ? Age/Sex: 73/F ? : 1950 Unit#: [id number] ?? Attend Dr: Abran Hayes MD ?Re04/12/24 ?Status: DEP REF ? Location: .LAB ?Disch: ? ----- ------- SPEC : [id number] ? RECD: 04/13/24-5 ? STATUS: ??SOUT ? REQ NUM: [id number] ? HONEY: 04/12/24-0 ? SUBM DR: Abran Hayes MD ? ENTERED: ??04/13/24-7582 ?SP TYPE: Cytology ? OTHR DR: Flower High MD ORDERED: ??Cyto-enhanced ? Diagnosis ?? Urine: ??Negative for high-grade urothelial carcinoma. ? COMMENT: ??Examination of a monolayer preparation slide shows many benign squamous cells ?? with focal Rachel, occasional benign urothelial cells with reactive changes, and ?? occasional acute inflammatory cells. ?Clinical History Urinary tract infection ? Material Received ?? Urine ? Gross Description Received is 5 cc of very pale yellow fluid from which a ThinPrep slide is prepared. Copies To: ?? Abran Hayes MD ?? [facility] ?? [address] ?? [place] [address] ?? [phone] ?? [email or web address] ?? Flower High MD ?? [address] [facility] ?? [place] [address] ?? [phone] ----- ------- Signed (signature on file) Fatimah Bradford 04/15/241116 ? ----- ------- ? END OF REPORT ? us Generic External Data Provider LAB CYTOLOGY YURY BUTCHER Final Result [facility] [address] [place] [address] [phone] documented in this encounter Visit Diagnoses Not on filedocumented in this encounter Additional Health Concerns Assessment Noted Time PHQ-9 Depression Total Score: 20 024 8:46 AM EDT documented as of this encounter Care Teams Cork Tipper Relationship Specialty Start Date End Date Flower High MD [address] [place] [phone] PCP - General Internal Medicine 07/19/22 documented as of this encounter
--- OUTSIDE RECORDS SUMMARY | 2024-04-27 16:52 | XMS_ITS | Encounter Summary ---
Author Organization [employer] Address [address] [facility] [address] [place] [address] Care Team Providers Care Consultant Technology Name Role Phone Flower High MD Primary Care Pro vider Reason for Visit * Reason Onset Date Comments May Recall 04/15/2024 Encounter Details Date Type Department Care Team ([facility] st Contact Info) Description 04/15/2024 Telephone [facility] MEDICINE [address] [place] [address] Flower High MD [address] [place], [place] [phone] May Recall Social History Tobacco Use Types Packs/Day Years [...] encounter Miscellaneous Notes * Telephone Encounter - Angelica Rod MA - 04/15/2024 9:43 AM EST Telephone call to patient to schedule a recall appointment. No answer, Left voicemail to return call to clinic.. Recall letter sent. Visit type: Office visit extended Appointment notes: DM and Chronic conditions Month due: May With: Gerry Please schedule appointment above if patient returns call documented in this encounter Plan of Treatment Upcoming Encounters Date Type Department Care Team (Late st Contact Info) Description 06/24/2024 1:15 PM EDT Office Visit [facility] MEDICINE [address] [place] [phone] Flower High MD [address] [place], [place] [phone] documented as of this encounter Visit Diagnoses Not on filedocumented in this encounter Additional Health Concerns Assessment Noted Time PHQ-9 Depression Total Score: 20 024 8:46 AM EDT documented as of this encounter Care Teams Consultant Technology Relationship Specialty Start Date End Date Flower High MD [address] [place] [phone] PCP - General Internal Medicine 07/19/22 documented as of this encounter
--- OUTSIDE RECORDS SUMMARY | 2024-04-27 16:52 | XMS_ITS | Encounter Summary ---
Author Organization [employer] Address [address] [facility] [address] [place] [address] Care Team Providers Care Molecular Geneticist Name Role Phone Flower High MD Primary Care Pro vider Encounter Details Date Type Department Care Team (Latest Contact Info) Description 04/26/2024 Travel Social History Tobacco Use Types Packs/Day Years [...] Description 06/24/2024 1:15 PM EDT Office Visit [facility] MEDICINE [address] [place] [phone] Flower High MD [address] [place] [phone] documented as of this encounter Visit Diagnoses Not on filedocumented in this encounter Additional Health Concerns Assessment Noted Time PHQ-9 Depression Total Score: 20 024 8:46 AM EDT documented as of this encounter Care Teams Molecular Geneticist Relationship Specialty Start Date End Date Flower High MD [address] [place] [phone] PCP - General Internal Medicine 07/19/22 documented as of this encounter
--- OUTSIDE RECORDS SUMMARY | 2024-04-27 16:52 | XMS_ITS | Encounter Summary ---
Author Organization [employer] Address [address] [facility] [address] [place] [address] Care Team Providers Care Reshipping Clerk Name Role Phone Flower High MD Primary Care Pro vider Reason for Visit * Reason Comments Med Refill Encounter Details Date Type Department Care Team ([facility] st Contact Info) Description 05/30/2023 Refill [facility] MEDICINE [address] [place] [address] Flower High MD [address] [place], [place] [phone] Chronic midline low back pain without sciatica [...] Description 06/24/2024 1:15 PM EDT Office Visit [facility] MEDICINE [address] [place] [phone] Flower High MD [address] [place] [phone] documented as of this encounter Visit Diagnoses Diagnosis Chronic midline low back pain without sciatica documented in this encounter Additional Health Concerns Assessment Noted Time PHQ-9 Depression Total Score: 0 01/07/20 1:19 PM EST documented as of this encounter Care Teams Reshipping Clerk Relationship Specialty Start Date End Date Flower High MD [address] [place] [phone] PCP - General Internal Medicine 07/19/22 documented as of this encounter
--- OUTSIDE RECORDS SUMMARY | 2024-04-27 16:52 | XMS_ITS | Encounter Summary ---
Author Organization [employer] Address [address] [facility] [address] [place] [address] Care Team Providers Care Golf Caddie Name Role Phone Flower High MD Primary Care Pro vider Reason for Visit * Reason Comments Dental Exam comp Encounter Details Date Type Department Care Team ([facility] st Contact Info) Description 04/17/2023 10:30 AM EST Office Visit [facility] ADULT DENTAL [address] [place] [address] Pool Mathew, DMD [address] [place], [place] [phone] Social History Tobacco Use Types Packs/Day Years [...] 1:15 PM EDT Office Visit [facility] MEDICINE [address] [place] [phone] Flower High MD 230 [place] [address] documented as of this encounter Procedures Procedure [...] documented as of this encounter Care Teams Golf Caddie Relationship Specialty Start Date End Date Flower High MD [address] [place] [phone] PCP - General Internal Medicine 07/19/22 documented as of this encounter
--- OUTSIDE RECORDS SUMMARY | 2024-04-27 16:52 | XMS_ITS | Clinical Summary ---
Author Organization [employer] Address [address] [place] [address] Care Team Providers Care Route Cdl Driver Name Role Phone Flower High MD Primary [...] MG/3ML nebulizer solutionIndicati ons:COPD with acute exacerbation ([facility]) Take 3 mL (1.25 mg) by nebulization every 6 (six) hours if needed for wheezing. 75 mL 3 024 Active Alcohol Swabs (Alcohol Prep) 70 % pads USE THREE TIMES DAILY DIRECTED 100 each 11 Active Blood Glucose Monitoring Suppl (FreeStyle [place] Lite) w/Device kitIndications:T ype 2 diabetes mellitus without complication, with long-term current use of insulin ([facility]) Use to test blood sugar [...] DAILY FOR 7 DAYS Active Continuous Glucose Tool And Die Maker/Designer (FreeStyle Erinn 2 [place]) deviceIndication s:Diabetes due to underlying condition w oth circulatory comp ([facility]) Use as directed to monitor glucose ever 8 hours. 1 each Active Continuous Glucose Sensor (FreeStyle Erinn 2 Sensor) miscIndications: Diabetes due to underlying condition w oth circulatory comp ([facility]) Use as directed to monitor glucose ever 8 hours. Replace sensor every 14 days. 2 each Active glucose blood (FreeStyle Precision Mikel Test) test stripIndications :Diabetes due to underlying condition w oth circulatory comp ([facility]) Test blood sugar q 8 [...] complication, with long-term current use of insulin ([facility]) Inject 18 Units under the skin at bedtime. 15 mL 2 Active pen needle 32G x 4 mm miscIndications: Type 2 diabetes mellitus without complication, with long-term current use of insulin ([facility]) Use as instructed 30 each 12 Active FREESTYLE LITE test stripIndications :Type 2 diabetes mellitus without complication, with long-term current use of insulin ([facility]) TEST BLOOD SUGAR THREE TIMES DAILY DIRECTED 100 strip 11 Active Easy Touch Lancets 33G/Twist misc TEST BLOOD SUGAR 3 TIMES A DAY DIRECTED 100 each 11 Active Ventolin HFA 108 (90 Base) MCG/ACT inhaler Inhale 1-2 puffs every 4 (four) hours if needed for shortness of breath or wheezing. 18 g 2 Active Oyster Shell Calcium 500 MG tablet TAKE 1 TABLET BY MOUTH TWICE DAILY IN THE MORNING AND IN THE EVENING WITH MEALS Active Continuous Glucose Tool And Die Maker/Designer (FreeStyle Erinn 3 [place]) deviceIndication s:Type 2 diabetes mellitus without complication, with long-term current use of insulin ([facility]) 1 each 3 times daily. As directed 1 each Active Aspirin Low Dose 81 MG EC tabletIndication s:Type 2 diabetes mellitus without complications ([facility]) TAKE 1 TABLET BY MOUTH EVERY EVENING 90 tablet 1 Active cyanocobalamin (Vitamin B-12) 1000 MCG tabletIndication s:Routine health maintenance TAKE 1 TABLET BY MOUTH EVERY EVENING 90 tablet Active Tradjenta 5 MG tabletIndication s:Type 2 diabetes mellitus without complication, unspecified whether spa coordinator insulin use ([facility]) TAKE 1 TABLET BY MOUTH EVERY MORNING [...] AND BEDTIME 90 capsule 1 025 Active Continuous Glucose Sensor (FreeStyle Erinn 3 Plus Sensor) miscIndications: Type 2 diabetes mellitus without complication, with long-term current use of insulin ([facility]) USE DIRECTED TO TEST BLOOD SUGAR, CHANGE EVERY 15 DAYS 15 DAYS 2 each Active ezetimibe (Zetia) 10 MG tablet TAKE 1 TABLET BY MOUTH EVERY MORNING 90 tablet 1 024 2024 Discontinued gabapentin (Neurontin) 300 MG capsuleIndicatio ns:Chronic midline low back pain without sciatica TAKE 1 CAPSULE BY MOUTH THREE TIMES DAILY IN THE MORNING, EVENING, AND BEDTIME 90 capsule 1 024 2024 Discontinued Continuous Glucose Sensor (FreeStyle Erinn 3 Sensor) miscIndications: Type 2 diabetes mellitus without complication, with long-term current use of insulin ([facility]) 1 each every 14 (fourteen) days. 2 each 024 2024 Discontinued Active Problems Problem Noted [...] -Will monitor CBC today and refer to security assessor at next apt (anemia) Abnormal uterine bleeding 11/13/2022 Assessment & Plan (11/13/2022 7:01 AM EDT): Pt was seen at the [facility] last mo for AUB. Already referred by provider to cardiac care unit nurse. Not gone yet. gave today information to [...] pt done in 2020 at [facility]-- ---- requested today record to Abiola Menendez [...] pt done in 2020 at [facility]-- ---- requested today record to Abiola Menendez [...] 09/2022: microalb - neg. -EKG 09/2022 at hospital - NSR, QTC 454, no ischemic [...] of bladder ca-thinks saw last oncologist at [facility] like 5 y ago -unsure if needed [...] of bladder ca-thinks saw last oncologist at [facility] like 5 y ago -unsure if needed [...] SI -continue care w psychiatrist and PT-seems f [facility] clinic in this building -psych meds refilled by specialist Assessment & Plan (08/19/2022 5:41 PM EDT): Pt w hx of depression/anxiety and panic attacks Denies SI -continue care w psychiatrist and PT-seems [facility] clinic in this building -psych meds refilled by specialist Diabetes due to underlying condition w asad alex 04/10/2017 Assessment & Plan (05/20/2023 7:41 PM [...] -ophthalmology 10/2022 - mild non-proliferative diabetic retinopathy. -Palliative Care Coordinator: will refer at next apt -Pt already [...] choroidal nevus to f up in 01/2023 -Palliative Care Coordinator: will refer at next apt Allergic rhinitis [...] Asthma/COPD Overlap syndrome Pt is following w laboratory courier -Dr Morales -last note obtained on 02/2022 [...] med -advised pt to f w her laboratory courier and I printed at last apt CT chest done in 2019 with abnormal findings -not mentioned in last pulm visit note from 02/2022 -pt will f w specialist about need to repeat image if not done before Assessment & Plan (08/19/2022 6:08 PM EDT): Asthma/COPD Overlap syndrome Pt is following w laboratory courier -Dr Morales -last note obtained on 02/2022 [...] ED -advised pt to f w her laboratory courier and I printed today CT chest done [...] mild JIMBO per pulm note -f w laboratory courier who referred back x sleep studies -pd to have test done -DELISA Luu gave info to pt to call to reschedule apt Assessment & Plan (08/19/2022 5:30 PM EDT): Pt has JIMBO-uses CPAP at night sleep study in 2018 : mild JIMBO per pulm note -f w laboratory courier who referred back x sleep studies -pd [...] Encounters Date Type Department Care Team Description 04/26/2024 3:00 PM EDT Office Visit [facility] [address] [place] [address] Juno, Mabel, OD Diabetes type 2, no ocular involvement ([facility]) (Primary Dx); Choroidal nevus of left eye; Dry eyes; Pseudophakia of both eyes; Regular astigmatism of both eyes 04/26/2024 Travel 04/20/2024 Refill [facility] [address] [facility] [place] [address] Carli Sanabria ANP Type 2 diabetes mellitus without complication, with long-term current use of insulin ([facility]) 04/15/2024 Telephone [facility] [address] [facility] [place] [address] Flower High MD May Recall 04/13/2024 Refill [facility] [address] [facility] [place] [address] Meredith Srinivasan MD Chronic midline low back pain without sciatica 04/12/2024 Orders Only GENERIC EXTERNAL DATA DEPARTMENT Provider, Generic External Data 04/12/2024 Telephone [facility] [address] [facility] [place] [address] Jeni Byrne RNwire winding machine operator 04/07/2024 Refill [facility] [address] [facility] [place] [address] Meredith Srinivasan MD Chronic midline low back pain without sciatica 04/04/2024 Refill [facility] [address] [facility] [place] [address] Flower High MD 03/15/2024 Refill [facility] [address] [facility] [place] [address] Flower High MD 02/23/2024 Orders Only [facility] [address] [facility] [place] [address] Flower High MD 02/17/2024 Refill [facility] [address] [place] [address] J Carlos Sin MD Primary hypertension 02/13/2024 Refill [facility] [address] [place] [address] Flower High MD 02/13/2024 Refill [facility] [address] [place] [address] J Carlos Sin MD Routine health maintenance; Type 2 diabetes mellitus without complication, unspecified whether shelter insulin use ([facility]) 02/09/2024 Refill [facility] [address] [place], [place] [phone] Flower High MD Type 2 diabetes mellitus without complications ([facility]) 02/04/2024 Refill [facility] [address] [place] [address] Katie Preciado, Cedrick Type 2 diabetes mellitus without complication, with long-term current use of insulin ([facility]) (Primary Dx) 02/04/2024 Refill [facility] [address] [place] [address] Flower High MD Chronic midline low back [...] Description 06/24/2024 1:15 PM EDT Office Visit [facility] [address] [place] [phone] Flower High MD [address] [place] [address] Health Maintenance Due Date Last Done Comments CT Colonography 1950 Dental Prophylaxis 1950 FIT DNA/Cologuard 1950 FIT 1950 FOBT 1950 Sigmoidoscopy 1950 Alcohol/Substance Use Screening 1964 Dental X-Ray: Bitewings 03/30/2010 03/29/2009 Colonoscopy 06/16/2022 06/16/2012 Colorectal Cancer Screening 06/16/2022 Dental Oral Exam 10/17/2023 04/17/2023, , 07/03/2016 Depression Monitoring (PHQ-9) 06/16/2024 12/17/2023, 12/17/2023 Diabetes: Hemoglobin A1C 07/05/2024 024, 06/09/2023, 11/11/2022 Diabetes: Foot Exam 09/28/2024 09/29/2023 Depression Screening 12/16/2024 12/17/2023, 12/17/19 24 SDOH Screening 12/16/2024 12/17/2023 Diabetes: Urine Protein Screening 01/05/2025 01/06/2024, 06/09/2023, 08/09/2021, Additional history exists Lipid Panel 01/05/2025 01/06/2024, 05/19, 08/09/2021 Tobacco Screening 04/26/2025 04/26/2024 Mammogram 12/24/2025 12/25/2023, 11/17, 12/05/2022, Additional history exists Dental X-Ray: Full Mouth 04/17/2026 024, 07/03/2016, 03/29/2009 Eye Exam 04/26/2026 04/26/2024, 04/17, 04/26/2024, Additional history exists DTaP/Tdap/Td Vaccines (3 - Td or Tdap) [...] Associated Diagnosis Comments CYTOPATH-CELL ENHANCED Routine 5 1:30 PM EST CYTOPATH-CELL ENHANCED Routine 5 4:46 PM EST [...] complication, with long-term current use of insulin ([facility]) 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 04/12/2024 1:30 PM EST 04/13/2024 11:55 AM EST [facility] - 04/15/2024 11:17 AM EST ----- ------- Name: Carole Tapia ? Age/Sex: 73/F ? : 1950 Unit#: [id number] ?? Attend Dr: Abran Hayes MD ?Re04/12/24 ?Status: DEP REF ? Location: .LAB ?Disch: ? ----- ------- SPEC : [id number] ? RECD: 04/13/24-1154 ? STATUS: ??SOUT ? REQ NUM: [id number] ? HONEY: 04/12/24-0 ? SUBM DR: Abran Hayes MD ? ENTERED: ??04/13/24-2 ?SP TYPE: Cytology ? OTHR DR: Flower [...] Copies To: ?? Abran Hayes MD ?? [facility] ?? [address] [place] [address] [address] ?? [place] [address] ?? [phone] ?? [email or web address] ?? Flower High MD ?? [address] [facility] ?? [place] [address] ?? [phone] ----- ------- Signed (signature on file) Fatimah Bradford 04/15/24 1117 ? ----- ------- ? END OF REPORT ? us Generic External Data Provider LAB CYTOLOGY YURY BUTCHER Final Result [facility] [address] [place] [phone] * CT Lung Screening Low dose (01/30/2024 10:54 AM EST) Anatomical Region Laterality Modality Lung Computed Tomogra phy 01/30/2024 10:5 4 AM EST Narrative 03/17/2024 11:59 AM EST ? [facility] ?[address] [place] [address] ?[place] [address] ? CT Scan Report ? Signed ? Patient: Carole Tapia ?MR#: [id number] ? : 1950 ?Acct:[id number] ? Age/Sex: 73 / F ?ADM Date: 01/30/24 ? Loc: HO.CT ? Attending Dr: Cass Vega PA-C ? Ordering Physician: Cass Vega PA-C ?? Date of Service: 01/30/24 ?? Procedure(s): CT lung screening ?? Accession Number(s): [id number] ? cc: Cass Vega PA-C; Flower High MD ? Report Number: ?? [id number]: Total DLP = ?? 48.00 mGy-cm ?? [...] for CT CHEST LOW DOSE CANCER SCREENING ([id number]) ?? can be placed. ? Electronically signed by: ??Conner Bernstein MD ??03/17/2024 11:57 AM EST ?? RP ? Dictated By: ?Conner Bernstein ? Signed By: ?<Electronically signed by Conner Bernstein in OV> ? 03/17/241156 ? DD/ 1054 ? TD/TT: 01/30/24 1124 ? Envelope Machine Adjuster: ? Procedure Note Donisabelter, Image - 03/17/[address] [place] [address] [address] Scan Report Signed Patient: Sherrie Tapia#: [id number] : 1950cct:[id number] Age/Sex: 73 / FADM Date: 01/30/24 Loc: HO.CT Attending Dr: Cass Vega PA-C Ordering Physician: Cass Vega PA-C Date of Service: 01/30/24 Procedure(s): CT lung screening Accession Number(s): [id number] cc: Cass Vega PA-C; Flower High MD Report Number: [id number]: Total DLP = 48.00 mGy-cm EXAMINATION: CT [...] for CT CHEST LOW DOSE CANCER SCREENING ([id number]) can be placed. Electronically signed by: Conner Bernstein MD 03/17/2024 11:57 AM EST Dictated By: Conner Bernstein Signed By: <Electronically signed by Conner Bernstein in OV> 03/17/24 1157 DD/ 1054 TD/TT: 01/30/24 1124 Envelope Machine Adjuster: [facility] External Provider IM CT PROCEDURES Edited Result - Final * Albumin, Random Urine W/Creatinine (01/06/2024 11:28 AM EST) Creatinine, Urine 162.24 mg/dL [facility] Microalbumin Urine 8.0 mg/L [facility] Microalbum Creatinine Ratio Ur 4.9 <30 ug/mg cr [facility] Comment:Albumin/Creatinine R atio Reference Ranges: Normal: < 30 ug/mg creatinine Microalbuminuria: 30 - 300 ug/mg creatinineClinical Albuminuria: > 300 ug/mg creatinine Urine (Urine, Random) 01/06/2024 11:28 AM EST 01/06/2024 1:08 PM EST us Flower Miranda MD LAB URINE ORDERAB LES Final Result Performing Organization Address [facility] de Phone Number [facility] [address] [place] [phone] * Hepatitis C Antibody with Reflex to HCV, RNA, Quantitative, Real-Time PCR (01/06/2024 11:28 AM EST) Hepatitis C Antibody Nonreactive Nonreactive [facility] Comment:Antibodies to HCV no t detected; does not exclude early acuteHCV infection. Blood Venous blood specimen / Unknown 01/06/2024 11:28 AM EST 01/06/2024 1:08 PM EST us Flower Miranda MD LAB BLOOD ORDERAB LES Final Result Performing Organization Address [facility] de Phone Number [facility] [address] [place] [phone] * (ABNORMAL) Hemoglobin A1c (01/06/2024 11:28 AM EST) Hemoglobin A1c 6.7(H) <6.0 % [facility] Comment:Hemoglobin A1C Refer ence Range Adults: 4.8 - 6.0 % Non diabetic: < 6.0 % Goal: < 7.0 %Additional Action Suggested: > 8.0 %Note: Hemoglobin A1c results are invalid for patients with abnormal amounts of HbF. Blood transfusions may impact the HbA1c concentration in the patient sample. Estimated Average Glucose 146 mg/dL [facility] Comment:eAG = Estimated ave rage glucose which is %A1C expressed asaverage glucose, using the formula of the [id number] Glucose study (ADAG), Diabetes Care, Vol.31,#8,2007 Blood Venous blood specimen / Unknown 01/06/2024 11:28 AM EST 01/06/2024 1:08 PM EST us Flower Miranda MD LAB BLOOD ORDERAB LES Final Result Performing Organization Address City/[facility]/ZIP Co de Phone Number [facility] [address] [place] [phone] * (ABNORMAL) Lipid Panel, Standard (01/06/2024 11:28 AM EST) Triglycerides 443(H) <150 mg/dL [facility] Comment:Slight Lipemia.James able Triglyceride: less than 150 mg/dLBorderline High Triglyceride 150-199 mg/dLHigh Triglyceride: 200-499 mg/dLVery High Triglyceride: greater than or equal to 5OO mg/dL Cholesterol 198 <200 mg/dL [facility] Comment:Desirable Cholestero l: less than 200 mg/dLBorderline High Cholesterol: 200-239 mg/dLHigh Cholesterol: greater than 239 mg/dL LDL Cholesterol Calculated TNP <100 mg/dL [facility] Comment:Unable to calculate the LDL. The formula of Friedwald,Kraus, and Latoya is only valid if the triglycerides areless than 400 mg/dl. HDL Cholesterol 66 >40 mg/dL [facility] Comment:Desirable HDL: great er than 40 mg/dL Note: This HDL assay may give artificially low results in patients with liver disease. Blood Venous blood specimen / Unknown 01/06/2024 11:28 AM EST 01/06/2024 1:13 PM EST us Flower Miranda MD LAB BLOOD ORDERAB LES Final Result Performing Organization Address City/[facility]/ZIP Co de Phone Number [facility] [address] [place] [phone] * BI Mammogram Screening Tomosynthesis Bilateral (12/25/2023 12:35 PM EST) Anatomical Region Laterality Modality Breast Bilateral Mammography 12/25/2023 12:3 5 PM EST Narrative 01/02/2024 4:11 PM EST ? [facility] ? [address] ?[place], [place] [address] ? Mammography Report ? Signed ? Patient: Willie,Carole ?MR#: [id number] ? : 1950 ?Acct:[id number] ? Age/Sex: 72 / F ?ADM Date: 12/25/23 ? Loc: HO.MAMMO ? Attending Dr: Flower Miranda MD ? Ordering Physician: Flower High MD ?Re ?? sults: 2Benign Findings ? Date of Service: 12/25/23 ?Follow Up: 1 Year From Orig ?? inal Mammogram ? Procedure(s): MM tomosynthesis screening BI ?? Accession Number(s): [id number] ? cc: Flower High MD ? EXAMINATION: [...] DD/ 1235 ? TD/TT: 12/25/23 1253 ? Envelope Machine Adjuster: ? Procedure Note Norm, Image - 01/02/2024 [facility] [address] [place] [address] Mammography Report Signed Patient: Sherrie Tapia#: [id number] : 3Acct:[id number] Age/Sex: 72 / FADM Date: 12/25/23 Loc: HO.VALERIEO Attending Dr: Flower Miranda MD Ordering Physician: Flower High sults: 2Benign Findings Date of Service: 12/25/23Follow Up: 1 Year From Orig inal Mammogram Procedure(s): MM tomosynthesis screening BI Accession Number(s): [id number] cc: Flower High MD EXAMINATION: MM SCREENING [...] DO 01/02/2024 04:08 PM [facility] Dictated By: Fabiana Casiano DO Signed By: <Electronically signed by Fabiana Casiano DO in OV> 01/02/24 1608 DD/ 1235 TD/TT: 12/25/23 1253 Envelope Machine Adjuster: Flower Miranda MD IMG BI PROCEDURES Final Result * Referral to Podiatry (09/29/2023) Flower Miranda MD OUTPATIENT REFERR AL ORDERABLES Final Result * Colonoscopy (06/16/2012) Colonoscopy Normal Normal Historical Provider HEALTH MAINTENANCE Final Result from Last 3 Months or Most Recently Relevant to Health Maintenance Insurance [address] [place] [address] [facility] ADULT Care Teams Route Cdl Driver Relationship Specialty Start Date End Date Flower High MD [address] [place] [phone] PCP - General Internal Medicine 07/19/22
--- OUTSIDE RECORDS SUMMARY | 2024-04-27 16:52 | XMS_ITS | Encounter Summary ---
Author Organization [employer] Address [address] [place] [address] Care Team Providers Care Oyster Unloader Name Role Phone Flower High MD Primary Care Pro vider Reason for Visit * Reason Onset Date Comments Med Refill No Show 09/17/2022 Encounter Details Date Type Department Care Team (Late st Contact Info) Description 09/17/2022 Refill [facility] [address] [place] [address] Claudette Lorenzo, REMELT WORKER [address] [place] [address] Allergic rhinitis, unspecified seasonality, unspecified trigger Social [...] Description 06/24/2024 1:15 PM EDT Office Visit [facility] [address] [place] [phone] Flower High MD [address] [place] [address] [phone] documented as of this encounter Visit Diagnoses Diagnosis Allergic rhinitis, unspecified seasonality, unspecified trigger documented in this encounter Care Teams Oyster Unloader Relationship Specialty Start Date End Date Flower High MD [address] [place] [phone] PCP - General Internal Medicine 07/19/22 documented as of this encounter
[2024-05-13 15:32] VITALS: BMI 28.3
--- NOTE | 2024-06-21 12:13 | P.CONAN_ITS ---
HPI - Anesthesia Eval Consult details Narrative: 73yo F for Cystoscopy,TUR Bladder Tumor Pulmo optimized per 05/2024 office visit. [facility]s [facility] [place] for Asthma-COPD, JIMBO, Smoker Anesthesia Pre-Procedure Meds Is the patient on any of the following meds?: GLP1/DPP4 PMFSH Active Problems Active Problems: All Active Problems Encounter for preoperative pulmonary examination (Acute) Cough (Acute) Dyspnea (Acute) Bladder mass (Acute) Abnormal urine cytology (Acute) Dysuria (Acute) Gross hematuria (Acute) History of bladder cancer (Acute) Personal history of nicotine dependence (Acute) Osteopenia (Acute) Asthma-COPD overlap syndrome (Acute) Nicotine dependence, cigarettes, uncomplicated (Acute) Epigastric pain (Acute) Carpal tunnel syndrome of right wrist (Acute) Carpal tunnel syndrome of left wrist (Acute) Diabetes mellitus (Acute) Impingement of left shoulder (Acute) JIMBO (obstructive sleep apnea) (Acute) Asthma (Acute) Bilateral anterior knee pain (Acute) Past Medical History Medical History Personal history of nicotine dependence Osteopenia Bladder cancer (~2019) Hypertension Diabetes mellitus Asthma-COPD overlap syndrome JIMBO (obstructive sleep apnea) Nicotine dependence, cigarettes, uncomplicated Bilateral anterior knee pain Surgical History Surgical History History of transurethral resection of bladder tumor (TURBT) History of esophagogastroduodenoscopy (EGD) History of colonoscopy Social History Social History (Updated 05/10/24 @ 15:55 by Lizzie Izquierdo LPN) Household Members: None Housing: Apartment Do you presently have visiting nurse or other home services: 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) Patient Tobacco Use Status: Current everyday Tobacco user Tobacco use type: Cigarette Cigarettes Per Day: 1 Years Smoked: (onset 15yr,s 1/2-1ppd x 50yrs, 35pyh, quit 2020) service: No Current occupational status: retired and disabled 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 Meds Allergies Allergy/AdvReac Type Severity Reaction Status Date / Time No Known Allergies Allergy Verified 05/10/24 15:47 [No Known Allergies*] Home Medications ?Medication ?Instructions ?Recorded ?Confirmed ?Last Taken ?Type aspirin 81 mg tablet,delayed 81 mg PO BEDTIME 07/11/20 05/10/24 05/05/23 History release cetirizine 10 mg tablet 10 mg PO DAILY 07/11/20 05/10/24 05/06/23 History cholecalciferol (vitamin D3) 50 50 mcg PO DAILY 07/11/20 05/10/24 05/06/23 History mcg (2,000 unit) capsule fluticasone propionate 50 1 spray intranasal DAILY PRN 07/11/20 05/10/24 Unknown History mcg/actuation nasal Allergy Symptoms spray,suspension gabapentin 300 mg capsule 300 mg PO TID 07/11/20 05/10/24 05/06/23 History glipizide 10 mg tablet, extended 10 mg PO DAILY 07/11/20 05/10/24 05/06/23 History release 24 hr linagliptin 5 mg tablet 5 mg PO DAILY 07/11/20 05/10/24 05/06/23 History metformin 500 mg tablet 1,000 mg PO BEDTIME 07/11/20 05/10/24 05/06/23 History pantoprazole 40 mg tablet,delayed 40 mg PO DAILY 07/11/20 05/10/24 05/06/23 History release sertraline 100 mg tablet 150 mg PO DAILY 07/11/20 05/10/24 05/06/23 History lisinopril 20 1 tab PO DAILY 10/12/21 05/10/24 05/06/23 History mg-hydrochlorothiazide 12.5 mg tablet rosuvastatin 40 mg tablet 40 mg PO BEDTIME 10/12/21 05/10/24 05/06/23 History buspirone 10 mg tablet 10 mg PO BID 02/25/22 05/10/24 05/06/23 History cyanocobalamin (vitamin B-12) 1,000 mcg PO QPM 05/06/23 05/10/24 05/05/23 History 1,000 mcg tablet metformin 500 mg tablet 500 mg PO DAILY 05/06/23 02/23/24 05/06/23 History nebulizers 10/27/23 02/23/24 Unknown History calcium carbonate 500 mg PO BID 02/23/24 05/10/24 Unknown History lancets 33 gauge (TRUEplus Lancets) #100 ea 02/23/24 02/23/24 Unknown History Exam Height,Weight and Vital Signs: Height 4 ft 11 in Weight 63.503 kg Pertinent Lab Results Pertinent Lab Results: Laboratory Tests 05/20/24 05/24/24 10:46 11:18 WBC 15.9 H Hgb 11.5 L Hct 35.8 L Plt Count 330 Sodium 136 Potassium 4.4 Chloride 96 Carbon Dioxide 30 H BUN 13 Creatinine 1.03 Narrative Narrative: EKG 01/2024 Vent. Rate : 105 BPM Atrial Rate : 105 BPM P-R Int : 120 ms QRS Dur : 068 ms QT Int : 344 ms P-R-T Axes : 071 -09 083 degrees QTc Int : 454 ms Sinus tachycardia Low voltage QRS Borderline ECG When compared with ECG of 06-MAY-2023 11:18, No significant change was found Assessment and Plan Assessment Anesthesia Assessment: Chart Reviewed
[2024-06-22 14:01] LABS: Glucose, Whole Blood 109 mg/dL (60-115)
== END ==
LOC: HO.SSS 12:52
PROVIDERS: PCP Student in an Organized Health Care Education/Training Program; Visit Provider Urology
DX: N32.89 Other specified disorders of bladder (principal); Z53.09 Procedure and treatment not carried out because of other contraindication; Z85.51 Personal history of malignant neoplasm of bladder; Z79.84 Long term (current) use of oral hypoglycemic drugs; E11.9 Type 2 diabetes mellitus without complications
CPT/HCPCS: 82947

== ENCOUNTER 2024-07-06 08:36 | Day surgery (SDC) | payer OTHER, SELFPAY ==
--- OUTSIDE RECORDS SUMMARY | 2024-06-25 12:22 | XMS_ITS | Encounter Summary ---
Author Organization [employer] Address [address] [place] [address] [address] [address] Care Team Providers Care Emulsion Coater Name Role Phone Claudette Lorenzo Primary Care Provider [phone] Flower High MD Primary Care Pro vider Encounter Details Date Type Department Care Team (Late st Contact Info) Description 03/18/2022 Orders Only [facility] [address] [place] [address] [phone] Karlene Dow LPN Social History Tobacco Use [...] Care Team (Late st Contact Info) Description 09/01/2024 2:15 PM EDT Office Visit [facility] [address] [place] [address] [phone] Flower High MD [address] [place], [place] [phone] documented as of this encounter Visit Diagnoses Not on filedocumented in this encounter Care Teams Emulsion Coater Relationship Specialty Start Date End Date Claudette Lorenzo FNP [address] [place] [address] PCP - General Family Medicine 10/11/21 07/18/22 Flower High MD [address] [place] [phone] PCP - General Internal Medicine 07/19/22 Altranais 06/08/24 documented as of this encounter
--- OUTSIDE RECORDS SUMMARY | 2024-06-25 12:22 | XMS_ITS | Encounter Summary ---
Author Organization [facility] [employer] Address [address] [facility] [address] [place] [address] Care Team Providers Care Rides Supervisor Name Role Phone Flower High MD Primary Care Pro vider Reason for Visit * Reason Onset Date Comments Appointment Request 06/23/2024 Encounter Details Date Type Department Care Team (Late st Contact Info) Description 06/23/2024 Telephone [facility] [address] [place] [address] Angélica Bellamy MA Appointment Request (/) Social History Tobacco Use Types Packs/Day Years [...] encounter Miscellaneous Notes * Telephone Encounter - Angélica Bellamy MA - 06/23/2024 9:25 AM EDT Fernando alcantar was returning call to r/s cancel appt with pcp Dr Garrett documented in this encounter Plan of Treatment Upcoming Encounters Date Type Department Care Team (Late st Contact Info) Description 09/01/2024 2:15 PM EDT Office Visit [facility] [address] [place] [phone] Flower High MD [address] [place] [phone] documented as of this encounter Visit Diagnoses Not on filedocumented in this encounter Additional Health Concerns Assessment Noted Time PHQ-9 Depression Total Score: 20 024 8:46 AM EDT documented as of this encounter Care Teams Rides Supervisor Relationship Specialty Start Date End Date Flower High MD [address] [place] [phone] PCP - General Internal Medicine 07/19/22 Altranais 06/08/24 documented as of this encounter
--- OUTSIDE RECORDS SUMMARY | 2024-06-25 12:22 | XMS_ITS | Encounter Summary ---
Author Organization [employer] Address [address] [facility] [address] [place] [address] Care Team Providers Care Head Pastry Chef Name Role Phone Flower High MD Primary Care Pro vider Reason for Visit * Reason Onset Date Comments Appointment Confirmation 06/22/2024 Encounter Details Date Type Department Care Team ([facility] st Contact Info) Description 06/22/[address] [facility] [address] [place] [address] Flower High MD [address] [place], [place] [phone] Appointment Confirmation Social History Tobacco Use Types Packs/Day Years [...] encounter Miscellaneous Notes * Telephone Encounter - Jam Andrew - 06/22/2024 4:14 PM EDT Tc from daughter requesting to reschedule appt for 06/24. Please contact daughter at [phone]. (Estonian Speaker) documented in this encounter Plan of Treatment Upcoming Encounters Date Type Department Care Team (Late st Contact Info) Description 09/01/2024 2:15 PM EDT Office Visit [facility] [address] [place] [address] Flower High MD [address] [place], [place] [phone] documented as of this encounter Visit Diagnoses Not on filedocumented in this encounter Additional Health Concerns Assessment Noted Time PHQ-9 Depression Total Score: 20 024 8:46 AM EDT documented as of this encounter Care Teams Head Pastry Chef Relationship Specialty Start Date End Date Flower High MD [address] [place] [phone] PCP - General Internal Medicine 07/19/22 Altranais 06/08/24 documented as of this encounter
--- OUTSIDE RECORDS SUMMARY | 2024-06-25 12:22 | XMS_ITS | Encounter Summary ---
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 ([facility]) Social History Tobacco Use Types Packs/Day [...] Description 09/01/2024 2:15 PM EDT Office Visit [facility] [address] [place] [phone] Flower High MD [address] [place] [phone] documented as of this encounter Visit Diagnoses Diagnosis Type 2 diabetes mellitus without complication, 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
--- OUTSIDE RECORDS SUMMARY | 2024-06-25 12:22 | XMS_ITS | Clinical Summary ---
Author Organization [employer] Address [address] [facility] [address] [place] [address] Care Team Providers Care Shirt Hemmer Name Role Phone Flower High MD Primary [...] 3 Active Blood Glucose Monitoring Suppl (FreeStyle Carter Lite) w/Device kitIndications:T ype 2 diabetes mellitus without complication, with long-term current use of insulin ([facility]) Use to test blood sugar bid dx dm 1 kit Active montelukast (Singulair) 10 MG tablet TAKE 1 TABLET BY MOUTH EVERY EVENING 90 tablet 1 Active azithromycin (Zithromax) 250 MG tablet TAKE 1 TABLET BY MOUTH EVERY MORNING (FRIDAY, FRIDAY AND FRIDAY) Active predniSONE (Deltasone) 10 MG tablet TAKE 2 TABLETS BY MOUTH ONCE DAILY FOR 7 DAYS, THEN TAKE 1 TABLET BY MOUTH ONCE DAILY FOR 7 DAYS Active Continuous Glucose Monomer Recovery Supervisor (FreeStyle Erinn 2 [place]) deviceIndication s:Diabetes due to underlying condition w oth circulatory comp ([facility]) Use as directed to monitor glucose ever 8 hours. 1 each Active Continuous Glucose Sensor (FreeStyle Erinn 2 Sensor) miscIndications: Diabetes due to underlying condition w oth circulatory comp ([facility]) Use as directed to monitor glucose ever 8 hours. Replace sensor every 14 days. 2 each Active glucose blood (FreeStyle Precision Mikel Test) test stripIndications :Diabetes due to underlying condition w oth circulatory comp ([facility]) Test blood sugar q 8 [...] complication, with long-term current use of insulin ([facility]) Use as instructed 30 each 12 Active Easy Touch Lancets 33G/Twist misc TEST BLOOD SUGAR 3 TIMES A DAY DIRECTED 100 each 11 Active Continuous Glucose Monomer Recovery Supervisor (FreeStyle Erinn 3 [place]) deviceIndication s:Type 2 diabetes mellitus without complication, with long-term current use of insulin ([facility]) 1 each 3 times daily. As directed 1 each 024 Active Aspirin Low Dose 81 MG EC tabletIndication s:Type 2 diabetes mellitus without complications ([facility]) TAKE 1 TABLET BY MOUTH EVERY EVENING 90 tablet 1 024 Active rosuvastatin (Crestor) 40 MG tablet TAKE 1 TABLET BY MOUTH AT BEDTIME 90 tablet 1 025 Active ezetimibe (Zetia) 10 MG tablet TAKE 1 TABLET BY MOUTH EVERY MORNING 90 tablet 1 025 Active Continuous Glucose Sensor (FreeStyle Erinn 3 Plus Sensor) miscIndications: Type 2 diabetes mellitus without complication, with long-term current use of insulin ([facility]) USE DIRECTED TO TEST BLOOD SUGAR, CHANGE EVERY 15 DAYS 15 DAYS 2 each 11 025 Active Alcohol Swabs (Alcohol Prep) 70 % pads TEST BLOOD SUGAR THREE TIMES DAILY DIRECTED 100 each 2 025 Active Tradjenta 5 MG tabletIndication s:Type 2 diabetes mellitus without complication, unspecified whether extermination inspector insulin use ([facility]) TAKE 1 TABLET BY MOUTH [...] 0.5-2.5 mg/3 mL nebulizer solution 025 Active insulin glargine (Lantus) 100 UNIT/ML penIndications:T ype 2 diabetes mellitus without complication, with long-term current use of insulin ([facility]) Inject 22 Units under the skin at bedtime. 15 mL 2 025 2025 Active insulin lispro (HumaLOG KWIKPEN) 100 UNIT/ML injection Inject 4 Units under the skin with breakfast, with lunch, and with evening meal. 1 each Active albuterol (2.5 MG/3ML) 0.083% nebulizer solution Take 3 mL (2.5 mg) by nebulization every 6 (six) hours if needed for wheezing. 75 mL 3 Active FREESTYLE LITE test stripIndications :Type 2 diabetes mellitus without complication, with long-term current use of insulin ([facility]) TEST BLOOD SUGAR THREE TIMES DAILY DIRECTED 100 strip 11 Active Ventolin HFA 108 (90 Base) MCG/ACT inhaler Inhale 1-2 puffs every 4 (four) hours if needed for shortness of breath or wheezing. 18 g 2 Active Spacer/Aero-Hold ing Chambers (OptiChamber Dennise) misc 1 each every 4 (four) hours if needed (asthma). 1 each Active gabapentin (Neurontin) 300 MG capsuleIndicatio ns:Chronic midline low back pain without sciatica TAKE 1 CAPSULE BY MOUTH THREE TIMES DAILY IN THE MORNING, EVENING, AND BEDTIME 90 capsule 1 Active Oyster Shell Calcium 500 MG tablet TAKE 1 TABLET BY MOUTH TWICE DAILY IN THE MORNING AND IN THE EVENING WITH MEALS 180 tablet 1 Active Trelegy Ellipta 200-62.5-25 MCG/ACT aerosol powder Take 1 puff by mouth Once daily. 1 each 3 025 Active cetirizine (ZyrTEC) 10 MG tablet TAKE 1 TABLET BY MOUTH EVERY MORNING 90 tablet Active cholecalciferol (D3 Super Strength) 50 MCG (2000 UT) capsule TAKE 1 CAPSULE BY MOUTH EVERY MORNING 90 capsule 025 Active cholecalciferol (D3 Super Strength) 50 MCG (2000 UT) capsule TAKE 1 CAPSULE BY MOUTH EVERY MORNING 90 capsule 1 024 2024 Discontinued cetirizine (ZyrTEC) 10 MG tablet TAKE 1 TABLET BY MOUTH EVERY MORNING 90 tablet 1 024 2024 Discontinued Oyster Shell Calcium 500 MG tablet TAKE 1 TABLET BY MOUTH TWICE DAILY IN THE MORNING AND IN THE EVENING WITH MEALS 024 2024 Discontinued(R eorder (will not trigger notification to Pharmacy)) gabapentin (Neurontin) 300 MG capsuleIndicatio ns:Chronic midline low back pain without sciatica TAKE 1 CAPSULE BY MOUTH THREE TIMES DAILY IN THE MORNING, EVENING, AND BEDTIME 90 capsule 1 025 2024 Discontinued Trelegy Ellipta 200-62.5-25 MCG/ACT aerosol powder Take 2 puffs by mouth 2 times daily. 1 each 3 025 2024 Discontinued(R eorder (will not trigger notification to Pharmacy)) nystatin (Mycostatin) 812079 UNIT/ML suspension Take 5 mL (500,000 Units) by mouth 4 times daily for 14 days. 280 mL 025 2024 Active Problems Problem Noted Date Diagnosed Date [...] -Will monitor CBC today and refer to body make up artist at next apt (anemia) Abnormal uterine bleeding 11/13/2022 Assessment & Plan (11/13/2022 7:01 AM EDT): Pt was seen at the [facility] last mo for AUB. Already referred by provider to senior client advisor. Not gone yet. gave today information to [...] apt. -colonoscopy:Per pt done in 2020 at [facility]-- ---- requested today record to Abiola Menendez [...] 11/2022 -colonoscopy:Per pt done in 2020 at [facility]-- ---- requested today record to Abiola Land. -DEXA scan 08/2022 : None per pt [...] of bladder ca-thinks saw last oncologist at [place] like 5 y ago -unsure if needed [...] of bladder ca-thinks saw last oncologist at [place] like 5 y ago -unsure if needed [...] care w psychiatrist and PT-seems f w [facility] in this building -psych meds refilled by specialist Assessment & Plan (08/19/2022 5:41 PM EDT): Pt w hx of depression/anxiety and panic attacks Denies SI -continue care w psychiatrist and PT-seems f w [facility] in this building -psych meds refilled by [...] -ophthalmology 10/2022 - mild non-proliferative diabetic retinopathy. -Compo Caster: will refer at next apt -Pt already [...] choroidal nevus to f up in 01/2023 -Compo Caster: will refer at next apt Allergic rhinitis [...] Asthma/COPD Overlap syndrome Pt is following w reducer Jitendra Morales -last note obtained on 02/2022 [...] med -advised pt to f w her reducer and I printed at last apt CT chest done in 2019 with abnormal findings -not mentioned in last pulm visit note from 02/2022 -pt will f w specialist about need to repeat image if not done before Assessment & Plan (08/19/2022 6:08 PM EDT): Asthma/COPD Overlap syndrome Pt is following w reducer Jitendra Morales -last note obtained on 02/2022 [...] ED -advised pt to f w her reducer and I printed today CT chest done [...] mild JIMBO per pulm note -f w reducer who referred back x sleep studies -pd to have test done -DELISA Luu gave info to pt to call to reschedule apt Assessment & Plan (08/19/2022 5:30 PM EDT): Pt has JIMBO-uses CPAP at night sleep study in 2018 : mild JIMBO per pulm note -taya newell reducer who referred back x sleep studies -pd [...] Encounters Date Type Department Care Team Description 06/23/2024 Telephone [facility] [address] [place] [phone] Flower High MD Durable Medical Equipment 06/23/[address] [address] Angélica Bellamy [place] Appointment Request (/) 06/22/2024 Telephone [facility] [address] [place] [phone] Flower High MD Appointment Confirmation 06/22/2024 Orders Only GENERIC EXTERNAL DATA DEPARTMENT Provider, Generic External Data 06/06/[address] [address] Flower High MD 06/03/2024 Orders Only [facility] [address] [place] [address] Arnel Lawrence MD 05/29/2024 Refill [facility] [address] [place] [address] Flower High MD 05/29/[address] [facility] [address] [place] [address] Meredith Srinivasan MD Chronic midline low back pain without sciatica 05/24/2024 3:00 PM EDT Clinical Support [address] [address] Fidelia Donovan RN Diabetes due to underlying condition w oth circulatory comp ([facility]) 05/24/2024 Telephone [facility] [address] [place] [phone] Arnel Lawrence MD 05/24/2024 Travel 05/24/2024 Orders Only [facility] [address] [place] [address] Meredith Srinivasan MD 05/21/2024 10:40 AM EDT Office Visit [facility] [address] [place] [phone] Arnel Lawrence MD Type 2 diabetes mellitus without complication, with long-term current use of insulin ([facility]) (Primary Dx); Oral candidiasis; Asthma-COPD overlap syndrome; Hyperkalemia; Diabetes due to underlying condition w oth circulatory comp ([facility]) 05/21/[address] [address] Flower High MD Durable Medical Equipment 05/21/[address] [phone] Flower High MD 05/21/2024 Telephone [facility] [address] [place] [address] Andra Ta, LAZARO Nebulizer dispensed 05/21/2024 Telephone [facility] [address] [place] [address] Arnel Lawrence MD Nurse Triage 05/20/2024 Orders Only [facility] [address] [place] [address] Flower High MD Type 2 diabetes mellitus without complication, with long-term current use of insulin ([facility]) 05/20/2024 Telephone [facility] [address] [place] [address] Flower High MD Results 05/20/2024 Telephone [facility] [address] [place] [address] Flower High MD critical lab 05/20/2024 Orders Only GENERIC EXTERNAL DATA DEPARTMENT Provider, Generic External Data 05/11/2024 Telephone [facility] [address] [place] [address] Chantelle Quiroga MD 05/11/2024 Telephone [facility] [address] [place] [address] Fidelia Donovan, LAZARO Results 05/10/2024 Telephone [facility] [address] [place] [address] Henrry Torres MD 05/10/2024 Orders Only [facility] [address] [place] [address] Flower High MD 05/06/2024 Refill [facility] [address] [place] [phone] Carli Sanabria ANP Primary hypertension 05/06/2024 Refill [facility] [address] [place] [address] Jim Bee MD Type 2 diabetes mellitus without complication, unspecified whether extermination inspector insulin use ([facility]); Routine health maintenance 04/29/2024 Refill [facility] [address] [place] [address] Flower High MD 04/26/2024 3:00 PM EDT Office Visit [facility] [address] [place] [address] JunoMabel clayton, OD Diabetes type 2, no ocular involvement ([facility]) (Primary Dx); Choroidal nevus of left eye; Dry eyes; Pseudophakia of both eyes; Reduced vision; Presbyopia 04/26/2024 Travel 04/20/2024 Refill [facility] [address] [place] [address] Carli Sanabria ANP Type 2 diabetes mellitus without complication, with long-term current use of insulin ([facility]) 04/15/2024 Telephone [facility] [address] [place], [place] [phone] Flower High MD May Recall 04/13/2024 Refill [facility] [address] [place] [address] Meredith Srinivasan MD Chronic midline low back pain without sciatica 04/12/2024 Orders Only GENERIC EXTERNAL DATA DEPARTMENT Provider, Generic External Data 04/12/2024 Telephone [facility] [address] [place], [place] [phone] Jeni Byrne RNstudio potter 04/07/2024 Refill [facility] [address] [place], [place] [phone] Meredith Srinivasan MD Chronic midline low back pain without sciatica 04/04/2024 Refill [facility] [address] [place], [place] [phone] Flower High MD from Last 3 Months [...] antigen) 12/28/2012,12/10/2011 Pfizer Covid-19 Vaccine 12+ 12/16/2023, 4 Pneumococcal Conjugate PCV 13 03/24/2018 Pneumococcal Conjugate [...] Description 09/01/2024 2:15 PM EDT Office Visit [facility] [address] [place] [phone] Flower High MD [address] [place] [address] Health Maintenance Due Date Last Done Comments CT Colonography 1950 Dental Prophylaxis 1950 FIT DNA/Cologuard 1950 FIT 1950 FOBT 1950 Sigmoidoscopy 1950 Alcohol/Substance Use Screening 1964 Dental X-Ray: Bitewings 03/30/2010 03/29/2009 Colonoscopy 06/16/2022 06/16/2012 Colorectal Cancer Screening 06/16/2022 Dental Oral Exam 10/17/2023 04/17/2023, , 07/03/2016 Diabetes: Hemoglobin A1C 08/10/202405/10/ 025, 01/06/2024, 06/09/2023, Additional history exists Diabetes: [...] Procedure Name Priority Date/Time Associated Diagnosis Comments GLUCOSE, WHOLE BLOOD Routine 06/22/2024 1:52 PM EDT POTASSIUM Routine 05/24/2024 11:18 AM EDT BASIC METABOLIC PANEL Routine 05/24/2024 11:18 AM EDT Type 2 diabetes mellitus without complication, with long-term current use of insulin ([facility]) POCT GLUCOSE Routine 05/21/2024 11:03 AM EDT Type 2 diabetes mellitus without complication, with long-term current use of insulin ([facility]) COMPLETE BLOOD COUNT MAN DIF Routine 05/20/2024 [...] Recently Relevant to Health Maintenance Results * Glucose, Whole Blood (06/22/2024 1:52 PM EDT) Pathologist [facility] Glucose, Whole Blood 109 60 - 115 mg/dL [facility] Comment:METER #: [id number] 06/22/2024 1:52 PM EDT 06/22/2024 2:00 PM EDT us Generic External Data Provider LAB BLOOD ORDERAB LES Final Result Performing Organization Address City/[facility]/ZIP Co de Phone Number [facility] [address] [place] [phone] * Potassium (05/24/2024 11:18 AM EDT) [facility] Potassium 5.1 3.3 - 5.1 mmol/L [facility] 05/24/2024 11:1 8 AM EDT 05/24/2024 1:04 PM EDT us Meredith Srinivasan MD LAB BLOOD ORDERABLES Final Result Performing Organization Address City/[facility] Co de Phone Number [facility] [address] [place] [phone] * (ABNORMAL) Basic Metabolic Panel (05/24/2024 11:18 AM EDT) Only the most recent of2 resultswithin the time period is included. Pathologist [facility] Sodium 136 135 - 145 mmol/L [facility] Potassium 4.4 3.3 - 5.1 mmol/L [facility] Chloride 96 96 - 108 mmol/L [facility] Carbon Dioxide 30(H) 22 - 29 mmol/L [facility] Anion Gap 14 12 - 20 [facility] Urea Nitrogen (BUN) 13 9 - 16 mg/dL [facility] Creatinine, Serum 1.03 0.5 - 1.4 mg/dL [facility] Estimated Glomerular Filt Rate 53 [facility] Comment:Chronic Kidney Disea se: Estimated GFR < 60 mL/min/1.00m1[facility]care Kidney Disease: Estimated GFR < 15 mL/min/1.73m2 Glucose 274(H) 60 - 115 mg/dL [facility] Calcium 10.0 8.4 - 10.2 mg/dL [facility] Blood Venous blood specimen / Unknown 05/24/2024 11:18 AM EDT 05/24/2024 1:04 PM EDT Arnel Lawrence MD LAB BLOOD ORDERABLES Final Resul t Performing Organization Address City/[facility]/ZIP Co de Phone Number [facility] [address] [place] [phone] * (ABNORMAL) POCT Glucose (05/21/2024 11:03 AM EDT) Glucose Blood, POC 270(A) 60 - 200 mg/dL Blood Capillary blood specimen / Unknown 05/21/2024 11:03 AM EDT Arnel Lawrence MD POINT OF CARE TEST ENTER/EDIT OR DERABLES Final Result * Slide Review (05/20/2024 10:46 AM EDT) Only the most recent of2 resultswithin the time period is included. Slide Review MANUAL DIFF [facility] 05/20/2024 10:4 6 AM EDT 05/20/2024 11:30 AM EDT us Generic External Data Provider LAB BLOOD ORDERAB LES Final Result Performing Organization Address City/[facility]/ZIP Co de Phone Number [facility] [address] [place] [phone] * (ABNORMAL) Complete Blood Count Manual Diff (05/20/2024 10:46 AM EDT) White Blood Count 15.9(H) 4.8 - 10.8 X10*3/uL [facility] Red Blood Count 3.64(L) 4.20 - 5.50 X10*6/uL [facility] Hemoglobin 11.5(L) 12.0 - 16.0 g/dl [facility] Hematocrit 35.8(L) 37.0 - 47.0 % [facility] Mean Corpuscular Volume 98.4(H) 80.0 - 98.0 fL [facility] Mean Corpuscular Hemoglobin 31.6 27.0 - 33.0 pg [facility] Mean Corpuscular HGB Conc 32.1 31.0 - 35.0 g/dl [facility] Red Cell Distribution Width 11.9 11.0 - 16.0 % [facility] Platelet Count 330 160 - 400 X10*3/uL [facility] Mean Platelet Volume 10.2 9.4 - 12.3 fL [facility] NRBC Pct Auto 0.0 0.0 - 0.2 /100WBC [facility] NRBC Abs Auto 0.000 0.0 - 0.012 X10*3/uL [facility] Neutrophils % Manual 95(H) 45 - 73 % [facility] Band Neutrophils Percent 0(L) 3 - 5 % [facility] Lymphocytes Percent Manual 2(L) 20 - 40 % [facility] Monocytes Percent Manual 3 2 - 11 % [facility] NEUTROPHILS ABSOLUTE MANUAL 15.1(H) 2.0 - 8.3 X10*3/uL [facility] LYMPHOCYTES ABSOLUTE MANUAL 0.3(L) 1.2 - 4.9 X10*3/uL [facility] MONOCYTES ABSOLUTE MANUAL 0.5 0.1 - 1.2 X10*3/uL [facility] Platelet Estimate NORMAL NORMAL [facility] Platelet Morphology Comment NORMAL [facility] RBC Morphology NORMAL [facility] 05/20/2024 10:4 6 AM EDT 05/20/2024 11:30 AM EDT us Generic External Data Provider LAB BLOOD ORDERAB LES Final Result Performing Organization Address [facility] de Phone Number [facility] [address] [place] [phone] * (ABNORMAL) Albumin, Random Urine W/Creatinine (05/20/2024 10:46 AM EDT) Only the most recent of2 resultswithin the time period is included. Creatinine, Urine 49.60 mg/dL [facility] Microalbumin Urine 23.0 mg/L [facility] Microalbum Creatinine Ratio Ur 46.3(H) <30 ug/mg cr [facility] Comment:Albumin/Creatinine R atio Reference Ranges: Normal: < 30 ug/mg creatinine Microalbuminuria: 30 - 300 ug/mg creatinineClinical Albuminuria: > 300 ug/mg creatinine 05/20/2024 10:4 6 AM EDT 05/20/2024 11:16 AM EDT us Flower Miranda MD LAB URINE ORDERAB LES Final Result Performing Organization Address [facility] de Phone Number [facility] [address] [place] [phone] * (ABNORMAL) CBC auto differential (05/20/2024 10:46 AM EDT) Only the most recent of2 resultswithin the time period is included. White Blood Count 15.9(H) 4.8 - 10.8 X10*3/uL [facility] Red Blood Count 3.64(L) 4.20 - 5.50 X10*6/uL [facility] Hemoglobin 11.5(L) 12.0 - 16.0 g/dl [facility] Hematocrit 35.8(L) 37.0 - 47.0 % [facility] Mean Corpuscular Volume 98.4(H) 80.0 - 98.0 fL [facility] Mean Corpuscular Hemoglobin 31.6 27.0 - 33.0 pg [facility] Mean Corpuscular HGB Conc 32.1 31.0 - 35.0 g/dl [facility] Red Cell Distribution Width 11.9 11.0 - 16.0 % [facility] Platelet Count 330 160 - 400 X10*3/uL [facility] Mean Platelet Volume 10.2 9.4 - 12.3 fL [facility] Neutrophils Percent Auto 91.0(H) 45 - 73 % [facility] Imm Gran Pct Auto 0.9(H) 0.0 - 0.4 % [facility] Lymphocytes Percent Auto 4.9(L) 20 - 40 % [facility] Monocytes Percent Auto 3.1 2 - 11 % [facility] Eosinophils Percent Auto 0.0 0 - 4 % [facility] Basophils Percent Auto 0.1 0 - 2 % [facility] NRBC Pct Auto 0.0 0.0 - 0.2 /100WBC [facility] Neutrophils Absolute Auto 14.4(H) 2.0 - 8.3 x10*3/uL [facility] Imm Gran Abs Auto 0.15(H) 0.00 - 0.03 X10*3/uL [facility] Lymphocytes Absolute Auto 0.8(L) 1.2 - 4.9 X10*3/uL [facility] Monocytes Absolute Auto 0.5 0.1 - 1.2 X10*3/uL [facility] Eosinophils Absolute Auto 0.0 0.0 - 0.4 X10*3/uL [facility] Basophils Absolute Auto 0.0 0.0 - 0.2 X10*3/uL [facility] NRBC Abs Auto 0.000 0.0 - 0.012 X10*3/uL [facility] 05/20/2024 10:4 6 AM EDT 05/20/2024 11:30 AM EDT us Generic External Data Provider LAB BLOOD ORDERAB LES Edited Result - Final [facility] [address] [place] [phone] * XR Chest 2 Views (05/10/2024 5:19 PM EDT) Anatomical Region Laterality Modality Chest Radiographic Janice ging 05/10/2024 5:19 PM EDT Narrative 05/10/2024 5:20 PM EDT ? [facility] ?[address] ?[place] [address] ?XRay Report ? Signed ? Patient: Willie,Carole ?MR#: [id number] ? : 1950 ?Acct:[id number] ? Age/Sex: 73 / F ?ADM Date: 05/10/24 ? Loc: HO.LAB ? Attending Dr: Belkis Tian FIELD NATURALIST ? Ordering Physician: Belkis Tian NP ?? Date of Service: 05/10/24 ?? Procedure(s): XR chest 2V ?? Accession Number(s): [id number] ? cc: Flower High MD; Belkis Tian [...] document has been electronically signed by: Ariadna oMntoya MD on ?? 05/10/2024 17:19:01 ? Dictated By: ?Ariadna Montoya MD ? Signed By: ?<Electronically signed by Ariadna Montoya MD in OV> ? 05/10/241718 ? DD/ 18 ? TD/TT: 05/10/241718 ? Supervising Airplane Pilot: ? Procedure Note Donotuseinterpreter, Image - 05/10/[address] [address] XRay Report Signed Patient: Sherrie Tapia#: [id number] : 3Acct:[id number] Age/Sex: 73 / FADM Date: 05/10/24 Loc: HO.LAB Attending Dr: Belkis Tian FIELD NATURALIST Ordering Physician: Belkis Tian NP Date of Service: 05/10/24 Procedure(s): XR chest 2V Accession Number(s): [id number] cc: Flower High MD; Belkis Tian NP [...] signed by Ariadna Montoya MD in OV> 05/10/24 1719 DD/ 18 TD/TT: 05/10/241718 Supervising Airplane Pilot: [facility] External Provider IMG XR PROCEDURES Final Result * Cancelled Urine (05/10/2024 4:49 PM EDT) Cancelled Urine SEE NOTE [facility] Comment:NO SPECIMEN WAS RECE IVED FOR MICARU 05/10/2024 4:49 PM EDT 05/10/2024 8:37 PM EDT Flower Miranda MD HISTORICAL/NON OR DERABLE LABS Final Result Performing Organization Address [facility]/ZIP Co de Phone Number [facility] [address] [place] [phone] * Vitamin B12 (Cobalamin) and Folate Panel, Serum (05/10/2024 4:49 PM EDT) Vitamin B12 476 200 - 900 pg/mL [facility] Comment:NORMAL 200-900 PG/ML INDETERMINATE 160-199 PG/ML DEFICIENT < 160 PG/ML Folate 13.9 > or = 4.0 ng/mL [facility] Comment:Reference Values:> o r = 4.0 ng/mL< 4.0 ng/mL suggests folate deficiency Methotrexate, aminopterin and folinic acid(leucovorin) are chemotherapeutic agents whose molecularstructures are similar to folate; therefore, the Architectfolate assay cannot be used for patients using these drugs. Blood 05/10/2024 4:49 PM EDT 05/10/2024 4:50 PM EDT us Flower Miranda MD LAB BLOOD ORDERAB LES Final Result Performing Organization Address [facility] Co de Phone Number [facility] [address] [place] [phone] * (ABNORMAL) Immunofixation, Serum (05/10/2024 4:49 PM EDT) IMMUNOGLOBULIN G 551(A) 600 - 1540 mg/dL [facility] IMMUNOGLOBULIN A 260 70 - 320 mg/dL [facility] Immunoglobulin M 47(A) 50 - 300 mg/dL [facility] Comment:THIS TEST WAS PERFOR MED AT:[employer] [place] [phone] CLARK MD Immunofixation Result SEE NOTE [facility] Comment:No monoclonal protei ns detected. Blood Venous blood specimen / Unknown 05/10/2024 4:49 PM EDT 05/10/2024 4:50 PM EDT Flower Miranda MD LAB BLOOD ORDERAB LES Final Result [facility] [address] [place] [phone] * (ABNORMAL) Protein, Total and Protein??Electrophoresis (05/10/2024 4:49 PM EDT) Prot Elec - Total Protein 6.3 6.1 - 8.1 g/dL [facility] Prot Elec - Albumin 3.9 3.8 - 4.8 g/dL [facility] Prot Elec - Alpha1 0.3 0.2 - 0.3 g/dL [facility] Prot Elec - Alpha2 0.8 0.5 - 0.9 g/dL [facility] Prot Elec - Beta 1 0.4 0.4 - 0.6 g/dL [facility] Prot Elec - Beta 2 0.4 0.2 - 0.5 g/dL [facility] Prot Elec - Gamma 0.5(A) 0.8 - 1.7 g/dL [facility] PES - Abn Protein Band 1 TNP [facility] PES-Abn Protein Band 2 TNP [facility] PES-Abn Protein Band 3 [facility] Prot Elec - Interpretation SEE NOTE [facility] Comment:Consistent with hypo gammaglobulinemia. Serum free lightchains or urine immunofixation should be considered ifplasma cell dyscrasias are a possible clinicaldiagnosis.THIS TEST WAS PERFORMED AT:[employer] [place] [phone] CLARK MD 05/10/2024 4:49 PM EDT 05/10/2024 4:50 PM EDT Flower Miranda MD LAB BLOOD ORDERAB LES Final Result Performing Organization Address City/[facility]/ZIP Co de Phone Number [facility] [address] [place] [phone] * B Type Natriuretic Peptide (BNP) (05/10/2024 4:49 PM EDT) B Type Natriuretic Peptide 23 <100 pg/mL [facility] 05/10/2024 4:49 PM EDT 05/10/2024 4:50 PM EDT Generic External Data Provider LAB BLOOD ORDERAB LES Final Result Performing Organization Address [facility] Co de Phone Number [facility] [address] [place] [phone] * (ABNORMAL) Hemoglobin A1c (05/10/2024 4:49 PM EDT) Hemoglobin A1c 9.0(H) <6.0 % [facility] Comment:Hemoglobin A1C Refer ence Range Adults: 4.8 - 6.0 % Non diabetic: < 6.0 % Goal: < 7.0 %Additional Action Suggested: > 8.0 %Note: Hemoglobin A1c results are invalid for patients with abnormal amounts of HbF. Blood transfusions may impact the HbA1c concentration in the patient sample. Estimated Average Glucose 212 mg/dL [facility] Comment:eAG = Estimated ave rage glucose which is %A1C expressed asaverage glucose, using the formula of the [id number] Glucose study (ADAG), Diabetes Care, Vol.31,#8,Sep. 2007 Blood Venous blood specimen / Unknown 05/10/2024 4:49 PM EDT 05/10/2024 4:50 PM EDT Flower Miranda MD LAB BLOOD ORDERAB LES Final Result Performing Organization Address City/[facility]/ZIP Co de Phone Number [facility] [address] [place] [phone] * (ABNORMAL) Lipid Panel, Standard (05/10/2024 4:49 PM EDT) Triglycerides 179(H) <150 mg/dL [facility] Comment:Desirable Triglyceri de: less than 150 mg/dLBorderline High Triglyceride 150-199 mg/dLHigh Triglyceride: 200-499 mg/dLVery High Triglyceride: greater than or equal to 5OO mg/dL Cholesterol 236(H) <200 mg/dL [facility] Comment:Desirable Cholestero l: less than 200 mg/dLBorderline High Cholesterol: 200-239 mg/dLHigh Cholesterol: greater than 239 mg/dL LDL Cholesterol Calculated 102(H) <100 mg/dL [facility] Comment:Desirable LDL: less than 100 mg/dLNear Optimal/Above Optimal LDL: 110- 129 mg/dLBorderline High LDL: 130-159 mg/dLHigh LDL: 160-189 mg/dLVery High LDL: greater than or equal to 190 mg/dL HDL Cholesterol 99 >40 mg/dL [facility] Comment:Desirable HDL: great er than 40 mg/dL Note: This HDL assay may give artificially low results in patients with liver disease. Blood Venous blood specimen / Unknown 05/10/2024 4:49 PM EDT 05/10/2024 4:50 PM EDT us Flower Miranda MD LAB BLOOD ORDERAB LES Final Result [facility] [address] [place] [phone] * (ABNORMAL) Comprehensive Metabolic Panel (05/10/2024 4:49 PM EDT) Sodium 136 135 - 145 mmol/L [facility] Potassium 5.2(H) 3.3 - 5.1 mmol/L [facility] Chloride 98 96 - 108 mmol/L [facility] Carbon Dioxide 29 22 - 29 mmol/L [facility] Anion Gap 14 12 - 20 [facility] Urea Nitrogen (BUN) 13 9 - 16 mg/dL [facility] Creatinine, Serum 1.23 0.5 - 1.4 mg/dL [facility] Estimated Glomerular Filt Rate 43 [facility] Comment:Chronic Kidney Disea se: Estimated GFR < 60 mL/min/1.01d1Xlexws Kidney Disease: Estimated GFR < 15 mL/min/1.73m2 Glucose 394(HH) 60 - 115 mg/dL [facility] Comment:Critical value for t est(s): GLUR Results called to and readback by: DR QUIROGA Person calling: DANIELLEMoy Univer Date: 05/10/24 Time:180 Calcium 10.1 8.4 - 10.2 mg/dL [facility] Bilirubin, Total 0.2 0.0 - 1.0 mg/dL [facility] Aspartate Amino Transferase 20 5 - 31 U/L [facility] Alanine Aminotransferase 23 0 - 31 U/L [facility] Total Protein 6.7 6.5 - 8.0 g/dL [facility] Albumin Level 4.0 3.5 - 5.0 g/dL [facility] Alkaline Phosphatase 66 39 - 117 U/L [facility] Blood Venous blood specimen / Unknown 05/10/2024 4:49 PM EDT 05/10/2024 4:50 PM EDT us Flower Miranda MD LAB BLOOD ORDERAB LES Final Result [facility] [address] [place] [phone] * Cytopath-cell enhanced (04/12/2024 1:30 PM EST) 04/12/2024 1:30 PM EST 04/13/2024 11:55 AM EST Narrative [facility] - 04/15/2024 11:17 AM EST ----- ------- Name: Carole Tapia ? Age/Sex: 73/F ? : 1950 Unit#: [id number] ?? Attend Dr: Abran Hayes MD ?Re04/12/24 ?Status: DEP REF ? Location: HO.LAB ?Disch: ? ----- ------- SPEC : [id number] ? RECD: 04/13/24-1155 ? STATUS: ??SOUT ? REQ NUM: [id number] ? HONEY: 04/12/24-0 ? SUBM DR: Abran Hayes MD ? ENTERED: ??04/13/24-0382 ?SP TYPE: Cytology ? OTHR DR: Flower [...] Copies To: ?? Abran Hayes MD ?? [facility] ?? [address] [place] [address] Dr. Valverde ?? [place] [address] ?? [phone] ?? [email or web address] ?? Flower High MD ?? [address] [facility] ?? [place] Palomo [address] ?? [phone] ----- ------- Signed (signature on file) Fatimah Bradford 04/15/241116 ? ----- ------- ? END OF REPORT ? us Generic External Data Provider LAB CYTOLOGY ORDLesly BUTCHER Final Result Performing Organization Address [facility] Co de Phone Number [facility] [address] [place] [phone] * Hepatitis C Antibody with Reflex to HCV, RNA, Quantitative, Real-Time PCR (01/06/2024 11:28 AM EST) Hepatitis C Antibody Nonreactive Nonreactive [facility] Comment:Antibodies to HCV no t detected; does not exclude early acuteHCV infection. Blood Venous blood specimen / Unknown 01/06/2024 11:28 AM EST 01/06/2024 1:08 PM EST Flower Miranda MD LAB BLOOD ORDERAB LES Final Result Performing Organization Address [facility] Co de Phone Number [facility] [address] [place] [phone] * BI Mammogram Screening Tomosynthesis Bilateral (12/25/2023 12:35 PM EST) Anatomical Region Laterality Modality Breast Bilateral Mammography 12/25/2023 12:3 5 PM EST Narrative 01/02/2024 4:11 PM EST ? [facility] [place] ? [address] ?[place] [address] ? Mammography Report ? Signed ? Patient: Willie,Carole ?MR#: [id number] ? : 1950 ?Acct:[id number] ? Age/Sex: 72 / F ?ADM Date: 11/07/24 ? Loc: HO.MAMMO ? Attending Dr: Flower Miranda MD ? Ordering Physician: Flower High MD ?Re ?? sults: 2Benign Findings ? Date of Service: 12/25/23 ?Follow Up: 1 Year From Orig ?? inal Mammogram ? Procedure(s): MM tomosynthesis screening BI ?? Accession Number(s): [id number] ? cc: Flower High MD ? EXAMINATION: [...] DD/ 1235 ? TD/TT: 12/25/23 1253 ? Supervising Airplane Pilot: ? Procedure Note Donotuseinterpreter, Image - 01/02/2024 [facility] [address] [place] [address] Mammography Report Signed Patient: Sherrie Tapia#: [id number] : 1950cct:[id number] Age/Sex: 72 / FADM Date: 12/25/23 Loc: HO.MAMMO Attending Dr: Flower Miranda MD Ordering Physician: Flower High sults: 2Benign Findings Date of Service: 12/25/23Follow Up: 1 Year From Orig inal Mammogram Procedure(s): MM tomosynthesis screening BI Accession Number(s): [id number] cc: Flower High MD EXAMINATION: MM SCREENING [...] 01/02/24 1608 DD/ 1235 TD/TT: 12/25/23 1253 Supervising Airplane Pilot: Flower iMranda MD IMG BI PROCEDURES Final Result * Referral to Podiatry (09/29/2023) Flower Miranda MD OUTPATIENT REFERR AL ORDERABLES Final Result * Colonoscopy (06/16/2012) [facility] Signature Colonoscopy Normal Normal Historical Provider HEALTH MAINTENANCE Final Result from Last 3 Months or Most Recently Relevant to Health Maintenance Insurance [facility] [employer] OPTIONS (HMO D-SNP) [facility] MEDICAID STAND ADULT Care Teams Shirt Hemmer Relationship Specialty Start Date End Date Flower High MD [address] [place] [phone] PCP - General Internal Medicine 07/19/22 Altranais 06/08/24
--- OUTSIDE RECORDS SUMMARY | 2024-06-25 12:22 | XMS_ITS | Encounter Summary ---
Author Organization [employer] Address [address] [place] [address] Care Team Providers Care It Software Developer Name Role Phone Flower High MD Primary Care Pro vider Reason for Visit * Reason Comments Med Refill Encounter Details Date Type Department Care Team (Late st Contact Info) Description 04/07/2024 Refill [facility] [address] [place] [address] Meredith Srinivasan MD [address] [place] [address] Chronic midline low back pain without sciatica [...] Description 09/01/2024 2:15 PM EDT Office Visit [facility] [address] [place] [address] [phone] Flower High MD [address] [place] [phone] documented as of this encounter Visit Diagnoses Diagnosis Chronic midline low back pain without sciatica documented in this encounter Additional Health Concerns Assessment Noted Time PHQ-9 Depression Total Score: 20 024 8:46 AM EDT documented as of this encounter Care Teams It Software Developer Relationship Specialty Start Date End Date Flower High MD [address] [place] [address] [phone] PCP - General Internal Medicine 07/19/22 Altranais 06/08/24 documented as of this encounter
--- OUTSIDE RECORDS SUMMARY | 2024-06-25 12:22 | XMS_ITS | Encounter Summary ---
Author Organization [employer] Address [address] [place] [address] Care Team Providers Care Gwot Ia/Ilo Intelligence Support Name Role Phone Flower High MD Primary Care Pro vider Encounter Details Date Type Department Care Team (Late st Contact Info) Description 05/20/2024 Orders Only [facility] [address] [place], [place] [phone] Flower High MD [address] [place], [place] [phone] Type 2 diabetes mellitus without complication, with long-term current use of insulin ([facility]) Social History Tobacco Use Types Packs/Day [...] Description 09/01/2024 2:15 PM EDT Office Visit [facility] [address] [place] [phone] Flower High MD [address] [place] [phone] documented as of this encounter Visit Diagnoses Diagnosis Type 2 diabetes mellitus without complication, with long-term current use of insulin ([facility]) documented in this encounter Additional Health Concerns Assessment Noted Time PHQ-9 Depression Total Score: 20 024 8:46 AM EDT documented as of this encounter Care Teams Gwot Ia/Ilo Intelligence Support Relationship Specialty Start Date End Date Flower High MD [address] [place] [phone] PCP - General Internal Medicine 07/19/22 Altranais 06/08/24 documented as of this encounter
--- OUTSIDE RECORDS SUMMARY | 2024-06-25 12:22 | XMS_ITS | Encounter Summary ---
Author Organization [employer] Address [address] [facility] 7t [place] [address] Care Team Providers Care Data Virtualization Consultant Name Role Phone Flower High MD Primary Care Pro vider Reason for Visit * Reason Comments Med Refill Encounter Details Date Type Department Care Team (Late st Contact Info) Description 05/30/2023 Refill [facility] [address] [place] [address] Flower High MD [address] [place] [address] Chronic midline low back pain without sciatica [...] Description 09/01/2024 2:15 PM EDT Office Visit [facility] [address] [place] [phone] Flower High MD [address] [place] [phone] documented as of this encounter Visit Diagnoses Diagnosis Chronic midline low back pain without sciatica documented in this encounter Additional Health Concerns Assessment Noted Time PHQ-9 Depression Total Score: 0 01/07/20 23 1:19 PM EST documented as of this encounter Care Teams Data Virtualization Consultant Relationship Specialty Start Date End Date Flower High MD [address] [place] [phone] PCP - General Internal Medicine 07/19/22 Altranlius as 06/08/24 documented as of this encounter
--- OUTSIDE RECORDS SUMMARY | 2024-06-25 12:22 | XMS_ITS | Encounter Summary ---
Author Organization [employer] Address [address] [place] [address] [address] Care Team Providers Care Novelty Maker Name Role Phone Claudette Lorenzo Primary Care Provider [phone] Flower High MD Primary Care Pro vider Encounter Details Date Type Department Care Team (Late st Contact Info) Description 05/06/2022 Orders Only [facility] [address] [place] [address] [phone] Karlene Dow LPN Social History Tobacco Use [...] Description 09/01/2024 2:15 PM EDT Office Visit [facility] [address] [place] [address] [phone] Flower High MD [address] [place], [place] [phone] documented as of this encounter Visit Diagnoses Not on filedocumented in this encounter Care Teams Novelty Maker Relationship Specialty Start Date End Date Claudette Lorenzo FNP [address] [place] [address] PCP - General Family Medicine 10/11/21 07/18/22 Flower High MD [address] [place] [phone] PCP - General Internal Medicine 07/19/22 Altranais 06/08/24 documented as of this encounter
--- OUTSIDE RECORDS SUMMARY | 2024-06-25 12:22 | XMS_ITS | Encounter Summary ---
Author Organization [employer] Address [address] [place] [address] Care Team Providers Care Inside Sales Advertising Executive Name Role Phone Flower High MD Primary Care Pro vider Reason for Visit * Reason Onset Date Comments Med Refill No Show 09/17/2022 Encounter Details Date Type Department Care Team (Late st Contact Info) Description 09/17/2022 Refill [facility] [address] [place] [address] Claudette Lorenzo, JACKERMAN [address] [place] [address] Allergic rhinitis, unspecified seasonality, unspecified trigger Social [...] 09/01/2024 2:15 PM EDT Office Visit [facility] [address] [place] [address] [phone] Flower High MD [address] [place] [phone] documented as of this encounter Visit Diagnoses Diagnosis Allergic rhinitis, unspecified seasonality, unspecified trigger documented in this encounter Care Teams Inside Sales Advertising Executive Relationship Specialty Start Date End Date Flower High MD [address] [place] [address] [phone] PCP - General Internal Medicine 07/19/22 Altranais 06/08/24 documented as of this encounter
--- OUTSIDE RECORDS SUMMARY | 2024-06-25 12:22 | XMS_ITS | Encounter Summary ---
Author Organization [employer] Address [address] [facility] 7[address] [place] [address] Care Team Providers Care Seat Pack Inspector Name Role Phone Flower High MD Primary Care Pro vider Encounter Details Date Type Department Care Team (Late st Contact Info) Description 03/05/2023 Orders Only [facility] [address] [place], [place] [phone] Flower High MD [address] [place] [address] Social History Tobacco Use Types Packs/Day Years [...] Description 09/01/2024 2:15 PM EDT Office Visit [facility] [address] [place] [phone] Flower High MD [address] [place] [phone] documented as of this encounter Visit Diagnoses Not on filedocumented in this encounter Additional Health Concerns Assessment Noted Time PHQ-9 Depression Total Score: 0 01/07/20 23 1:19 PM EST documented as of this encounter Care Teams Seat Pack Inspector Relationship Specialty Start Date End Date Flower High MD [address] [place] [phone] PCP - General Internal Medicine 07/19/22 Altranais 06/08/24 documented as of this encounter
--- OUTSIDE RECORDS SUMMARY | 2024-06-25 12:22 | XMS_ITS | Encounter Summary ---
Author Organization [employer] Address [address] [facility] 7t [place] [address] Care Team Providers Care Control Cabinet Assembler Name Role Phone Flower High MD Primary Care Pro vider Reason for Visit * Reason Onset Date Comments Durable Medical Equipment 06/23/2024 Encounter Details Date Type Department Care Team (Late st Contact Info) Description 06/23/2024 Telephone [facility] [address] [place] [address] Flower High MD [address] [place], [place] [phone] Durable Medical Equipment Social History Tobacco Use [...] encounter Miscellaneous Notes * Telephone Encounter - Carol Miranda LPN - 06/23/2024 4:01 PM EDT Television Camera Operator spoke with pt ad pt daughter informed pt will need supportive documentation and PT eval in order to continue. Pt showed understanding stated will wait for upcoming appt Tc from pt daughter requesting prescription for recliner seat. * Telephone Encounter - Sonal Irvin - 06/23/2024 3:37 PM EDT Tc from pt daughter requesting prescription for recliner seat. documented in this encounter Plan of Treatment Upcoming Encounters Date Type Department Care Team (Late st Contact Info) Description 09/01/2024 2:15 PM EDT Office Visit [facility] [address] [place] [phone] Flower High MD [address] [place] [address] documented as of this encounter Visit Diagnoses Not on filedocumented in this encounter Additional Health Concerns Assessment Noted Time PHQ-9 Depression Total Score: 20 12/16/ 024 8:46 AM EDT documented as of this encounter Care Teams Control Cabinet Assembler Relationship Specialty Start Date End Date Flower High MD [address] [place] [phone] PCP - General Internal Medicine 07/19/22 Altranais 06/08/24 documented as of this encounter
--- OUTSIDE RECORDS SUMMARY | 2024-06-25 12:22 | XMS_ITS | Encounter Summary ---
Author Organization [employer] Address [address] [place] [address] Care Team Providers Care Aqua Ammonia Operator Name Role Phone Flower High MD Primary Care Pro vider Encounter Details Date Type Department Care Team (Late st Contact Info) Description 06/22/2024 Orders Only GENERIC EXTERNAL DATA DEPARTMENT [...] 09/01/2024 2:15 PM EDT Office Visit [facility] [address] [place], [place] [phone] Flwoer High MD [address] [place] [phone] documented as of this encounter Procedures Procedure Name Priority Date/Time Associated Diagnosis Comments GLUCOSE, WHOLE BLOOD Routine 06/22/2024 1:52 PM EDT documented in this encounter Results * Glucose, Whole Blood (06/22/2024 1:52 PM EDT) Glucose, Whole Blood 109 60 - 115 mg/dL [facility] Comment:METER #: [id number] 06/22/2024 1:52 PM EDT 06/22/2024 2:00 PM EDT us Generic External Data Provider LAB BLOOD ORDERAB LES Final Result [facility] [address] [place] [phone] documented in this encounter Visit Diagnoses Not on filedocumented in this encounter Additional Health Concerns Assessment Noted Time PHQ-9 Depression Total Score: 20 024 8:46 AM EDT documented as of this encounter Care Teams Aqua Ammonia Operator Relationship Specialty Start Date End Date Flower High MD [address] [place] [phone] PCP - General Internal Medicine 07/19/22 Altranais 06/08/24 documented as of this encounter
[2024-07-01 16:45] VITALS: RESP 16
[2024-07-01] MEDS: fentaNYL citrate/PF 100 MCG/2 ML VIAL 25 MCG IVPUSH (16:45)
[2024-07-02 14:16] VITALS: BMI 27.6
--- NOTE | 2024-07-05 10:29 | HO.ANESPROP2 ---
Documented by User: Gi Tam NP 07/05/24 11:05 HPI - Anesthesia Eval Consult details Narrative: 73yo M for Cystoscopy,TUR Bladder Tumor Follows [facility] Pulmo for Asthma-COPD, JIMBO, nicotine. Optimized for surgery per 05/2024 office visit eval, rx regimen updated. Chronic prednisone 10mg daily Anesthesia Pre-Procedure Meds Is the patient on any of the following meds?: GLP1/DPP4 PMFSH Active Problems Active Problems: All Active Problems Encounter for preoperative pulmonary examination (Acute) Cough (Acute) Dyspnea (Acute) Bladder mass (Acute) Abnormal urine cytology (Acute) Dysuria (Acute) Gross hematuria (Acute) History of bladder cancer (Acute) Personal history of nicotine dependence (Acute) Osteopenia (Acute) Asthma-COPD overlap syndrome (Acute) Nicotine dependence, cigarettes, uncomplicated (Acute) Epigastric pain (Acute) Carpal tunnel syndrome of right wrist (Acute) Carpal tunnel syndrome of left wrist (Acute) Diabetes mellitus (Acute) Impingement of left shoulder (Acute) JIMBO (obstructive sleep apnea) (Acute) Asthma (Acute) Bilateral anterior knee pain (Acute) Past Medical History Medical History Personal history of nicotine dependence Osteopenia Bladder cancer (~2019) Hypertension Diabetes mellitus Asthma-COPD overlap syndrome JIMBO (obstructive sleep apnea) Nicotine dependence, cigarettes, uncomplicated Bilateral anterior knee pain Surgical History Surgical History History of transurethral resection of bladder tumor (TURBT) History of esophagogastroduodenoscopy (EGD) History of colonoscopy Social History Social History Household Members: None Housing: Apartment Are you a primary ocular care technician to a significant other at home: No Do you presently have visiting nurse or other home services: No Patient Tobacco Use Status: Former Tobacco user Tobacco use type: Cigarette Cigarettes Per Day: 1 Years Smoked: (onset 15yr,s 1/2-1ppd x 50yrs, 35pyh, quit 2020) Use of substances other than those prescribed or required for medical reasons: No Have you been hit, kicked, punched, or otherwise hurt by someone within the past year? 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 Meds Allergies Allergy/AdvReac Type Severity Reaction Status Date / Time No Known Allergies Allergy Verified 07/06/24 13:42 [No Known Allergies*] Home Medications ?Medication ?Instructions ?Recorded ?Confirmed ?Last Taken ?Type aspirin 81 mg tablet,delayed 81 mg PO BEDTIME 07/11/20 07/06/24 06/22/24 History release cetirizine 10 mg tablet 10 mg PO DAILY 07/11/20 05/10/24 05/06/23 History cholecalciferol (vitamin D3) 50 50 mcg PO DAILY 07/11/20 05/10/24 05/06/23 History mcg (2,000 unit) capsule fluticasone propionate 50 1 spray intranasal DAILY PRN 07/11/20 05/10/24 Unknown History mcg/actuation nasal Allergy Symptoms spray,suspension gabapentin 300 mg capsule 300 mg PO TID 07/11/20 05/10/24 05/06/23 History glipizide 10 mg tablet, extended 10 mg PO DAILY 07/11/20 05/10/24 05/06/23 History release 24 hr linagliptin 5 mg tablet 5 mg PO DAILY 07/11/20 07/06/24 06/29/24 History metformin 500 mg tablet 1,000 mg PO BEDTIME 07/11/20 05/10/24 05/06/23 History pantoprazole 40 mg tablet,delayed 40 mg PO DAILY 07/11/20 05/10/24 05/06/23 History release sertraline 100 mg tablet 150 mg PO DAILY 07/11/20 05/10/24 05/06/23 History lisinopril 20 1 tab PO DAILY 10/12/21 05/10/24 05/06/23 History mg-hydrochlorothiazide 12.5 mg tablet rosuvastatin 40 mg tablet 40 mg PO BEDTIME 10/12/21 05/10/24 05/06/23 History buspirone 10 mg tablet 10 mg PO BID 02/25/22 05/10/24 05/06/23 History cyanocobalamin (vitamin B-12) 1,000 mcg PO QPM 0305/10/24 05/05/23 History 1,000 mcg tablet metformin 500 mg tablet 500 mg PO DAILY 05/06/23 02/23/24 05/06/23 History nebulizers 10/27/23 02/23/24 Unknown History calcium carbonate 500 mg PO BID 02/23/24 05/10/24 Unknown History lancets 33 gauge (TRUEplus Lancets) #100 ea 02/23/24 02/23/24 Unknown History Exam Height,Weight and Vital Signs: Height 4 ft 11 in Weight 61.972 kg Pertinent Lab Results Pertinent Lab Results: Laboratory Tests 05/20/24 05/24/24 10:46 11:18 WBC 15.9 H Hgb 11.5 L Hct 35.8 L Plt Count 330 Sodium 136 Potassium 4.4 Chloride 96 Carbon Dioxide 30 H BUN 13 Creatinine 1.03 Narrative Narrative: EKG 01/2024 Vent. Rate : 105 BPM Atrial Rate : 105 BPM P-R Int : 120 ms QRS Dur : 068 ms QT Int : 344 ms P-R-T Axes : 071 -09 083 degrees QTc Int : 454 ms Sinus tachycardia Low voltage QRS Borderline ECG When compared with ECG of 06-MAY-2023 11:18, No significant change was found Assessment and Plan Assessment Anesthesia Assessment: Chart Reviewed Documented by User: Mary Menezes MD 07/06/24 13:47 PMFSH Past Medical History Medical History Personal history of nicotine dependence Osteopenia Bladder cancer (~2019) Hypertension Diabetes mellitus Asthma-COPD overlap syndrome JIMBO (obstructive sleep apnea) Nicotine dependence, cigarettes, uncomplicated Bilateral anterior knee pain Family History Family history of problems with anesthesia: No Surgical History Surgical History History of transurethral resection of bladder tumor (TURBT) History of esophagogastroduodenoscopy (EGD) History of colonoscopy History of Problems with Anesthesia: No Social History Social History Household Members: None Housing: Apartment Are you a primary ocular care technician to a significant other at home: No Do you presently have visiting nurse or other home services: No Patient Tobacco Use Status: Former Tobacco user Tobacco use type: Cigarette Cigarettes Per Day: 1 Years Smoked: (onset 15yr,s 1/2-1ppd x 50yrs, 35pyh, quit 2020) Use of substances other than those prescribed or required for medical reasons: No Have you been hit, kicked, punched, or otherwise hurt by someone within the past year? 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 Meds Allergies Allergy/AdvReac Type Severity Reaction Status Date / Time No Known Allergies Allergy Verified 07/06/24 13:42 [No Known Allergies*] Home Medications ?Medication ?Instructions ?Recorded ?Confirmed ?Last Taken ?Type aspirin 81 mg tablet,delayed 81 mg PO BEDTIME 07/11/20 07/06/24 06/22/24 History release cetirizine 10 mg tablet 10 mg PO DAILY 07/11/20 05/10/24 05/06/23 History cholecalciferol (vitamin D3) 50 50 mcg PO DAILY 07/11/20 05/10/24 05/06/23 History mcg (2,000 unit) capsule fluticasone propionate 50 1 spray intranasal DAILY PRN 07/11/20 05/10/24 Unknown History mcg/actuation nasal Allergy Symptoms spray,suspension gabapentin 300 mg capsule 300 mg PO TID 07/11/20 05/10/24 05/06/23 History glipizide 10 mg tablet, extended 10 mg PO DAILY 07/11/20 05/10/24 05/06/23 History release 24 hr linagliptin 5 mg tablet 5 mg PO DAILY 07/11/20 07/06/24 06/29/24 History metformin 500 mg tablet 1,000 mg PO BEDTIME 07/11/20 05/10/24 05/06/23 History pantoprazole 40 mg tablet,delayed 40 mg PO DAILY 07/11/20 05/10/24 05/06/23 History release sertraline 100 mg tablet 150 mg PO DAILY 07/11/20 05/10/24 05/06/23 History lisinopril 20 1 tab PO DAILY 10/12/21 05/10/24 05/06/23 History mg-hydrochlorothiazide 12.5 mg tablet rosuvastatin 40 mg tablet 40 mg PO BEDTIME 10/12/21 05/10/24 05/06/23 History buspirone 10 mg tablet 10 mg PO BID 02/25/22 05/10/24 05/06/23 History cyanocobalamin (vitamin B-12) 1,000 mcg PO QPM 05/06/23 05/10/24 05/05/23 History 1,000 mcg tablet metformin 500 mg tablet 500 mg PO DAILY 05/06/23 02/23/24 05/06/23 History nebulizers 10/27/23 02/23/24 Unknown History calcium carbonate 500 mg PO BID 02/23/24 05/10/24 Unknown History lancets 33 gauge (TRUEplus Lancets) #100 ea 02/23/24 02/23/24 Unknown History Exam Airway Mallampati Class: II TM Dist: >3cm Neck ROM: Limited Denture: Upper and Lower Heart: rrr Lungs: cta Assessment and Plan Assessment Anesthesia Assessment: Anesthesia Plan Discussed Final Anesthetic Review Family History of Problems with Anesthesia: No History of Problems with Anesthesia: No NPO: Yes ASA Class: III Final Preanesthetic Review: No Changes in Pt Med Stat, Meds/Allgs Chart Reviewed, Consent Obtained/Reviewed and Anes Risks/Benef Reviewed Patient Risk: Intermediate Procedure Risk: Low Anesthetic Plan Anesthetic Plan: GA Disposition: Standard PACU
[2024-07-06] VITALS (18 sets, daily range): BP systolic 106–153; BP diastolic 53–92; PULSE 77–99; RESP 14–21; TEMP 36.2–36.7; O2SAT 94–100; BMI 28.5
[2024-07-06] MEDS: Lactated Ringers 1,000 ML 100 ML IVCONT (13:42)
[2024-07-06 13:44] LABS: Glucose, Whole Blood 99 mg/dL (60-115)
[2024-07-06] MEDS: Albuterol Sulfate (0.083%) 2.5 MG/3 ML VIAL.NEB INHALE ×2 (13:49→15:38)
--- NOTE | 2024-07-06 13:54 | W.PM.OPN ---
Operative Note Operative Note Date of Service: 07/06/24 Narrative: PREOP DIAGNOSIS: History of bladder cancer, recurrent bladder lesions POSTOP DIAGNOSIS: History of bladder cancer, recurrent bladder lesions PROCEDURE: Cystoscopy transurethral resection of bladder tumor, fulguration, bladder biopsies Anesthesia: General Surgeon Dr. Abran Hayes Findings: Multiple papillary bladder tumors, multifocal on the bladder greater than 8 lesions, with cluster of flattened lesions grouped lateral to the right trigone. In total bladder tumor measuring greater than 5 cm Details of procedure: The patient was brought into the operating room placed on the OR table in supine position. Antibiotics confirmed. Ancef 2 g IV. General anesthesia was administered. The patient was repositioned into lithotomy position, prepped and draped in the usual sterile fashion. Time-out was done per protocol. 2 urojet placed. A 22 [place] Islander cystoscope was passed transurethrally into the bladder. Visualization of the bladder noted Multiple papillary bladder tumors, multifocal on the bladder greater than 8 lesions, a cluster of flattened lesions noted lateral to the right trigone. A cold cup biopsy was done of 1 of the smaller bladder lesions noted on the posterior wall. The 24 [place] Islander resectoscope was passed transurethrally into the bladder. The loop and roller ball attachment was used to resect and fulgurate the bladder tumors. On the right lateral wall there was a deep resection which noted muscle and fat. The Ellik evacuator was used to irrigate out the bladder tumor specimens. Once there was good hemostasis the resectoscope was removed. A 20 [place] Islander Gambino was passed transurethrally. The patient was brought out of anesthesia, she complained of bladder spasms and a belladonna rectal suppository was inserted. The patient was taken to recovery in stable condition. Plan - will leave the Gambino catheter for at least 5 days. Complications: None EBL: minimal (<10 mL) Drains: [address] Gambino catheter
--- NOTE | 2024-07-06 13:55 | MHC.SHP ---
Pre-Procedural Eval Section A - 24 Hr Update-Section A only Date of Service: 07/06/24 The patient is an INPATIENT: No The patient has been examined within 24 hours of the surgical procedure. The History & Physical has been completed within 30 days and I have reviewed it.: Yes Section B - Complete if H&P > 30 days Chief Complaint: Other specified disorders of bladder Allergies: Allergies Allergy/AdvReac Type Severity Reaction Status Date / Time No Known Allergies Allergy Verified 07/06/24 13:42 [No Known Allergies*] Plan Diagnosis/Plan: Unchanged I have reviewed the history and physical and performed a pertinent physical examination on my patient. No changes have occurred unless specified. Bladder tumor. Cystoscopy TURBT, bladder biopsies, fulguation, larsen catheter Time Spent With Patient Time: Total time managing care of this patient today ____ minutes.
[2024-07-06] MEDS: ceFAZolin Sodium/Dextrose,Iso 2 GM/50 ML PIGGYBACK IV (14:20)
[2024-07-06] MEDS: fentaNYL citrate/PF 100 MCG/2 ML VIAL 25 MCG IVPUSH ×2 (15:40→16:05)
[2024-07-06] MEDS: Phenazopyridine HCL 200 MG TABLET PO (16:14)
[2024-07-06] MEDS: Albuterol/Iprat 2.5/0.5MG 3 ML AMPUL.NEB INHALE (19:36)
[2024-07-06 21:05] LABS: Glucose, Whole Blood 330 mg/dL (60-115)
[2024-07-06] MEDS: Atorvastatin Calcium 80 MG TABLET 40 MG PO (22:13)
[2024-07-06] MEDS: Montelukast Sodium 10 MG TABLET PO (22:13)
[2024-07-06] MEDS: busPIRone HCl 10 MG TABLET PO (22:13)
[2024-07-06] MEDS: oxyCODONE HCl Immed Release 5 MG TABLET PO (22:13)
[2024-07-06] MEDS: metFORMIN HCl 1,000 MG TABLET 1000 MG PO (22:13)
[2024-07-06] MEDS: 0.9 % Sodium Chloride Flush 3 ML SYRINGE IVFLUSH (22:19)
[2024-07-07] MEDS: Ketorolac Tromethamine 30 MG/ML VIAL 15 MG IVPUSH ×2 (02:17→08:58)
[2024-07-07] MEDS: oxyCODONE HCl Immed Release 5 MG TABLET PO (02:48)
[2024-07-07] MEDS: Mirabegron 50 MG TAB.ER.24H PO (02:52)
[2024-07-07] MEDS: Phenazopyridine HCL 200 MG TABLET PO ×2 (02:52→08:56)
--- NOTE | 2024-07-07 03:05 | PC.NURSE ---
Pt reporting 10/10 abdominal pain, pt not due for next dose of PRN 5mg PO oxycodone for 2hrs. MD Hayes sent tiger message relaying this information. Provider approved early administration of PRN 5mg PO oxycodone and gave additional orders for myrbetriq 50 mg PO x 1 dose for bladder spasms and pyridium 200 mg PO X 1 dose for urinary pain and burning. Medications ordered and administered with good effect.
[2024-07-07 03:50] VITALS: BP 113/57; PULSE 77; RESP 16; TEMP 36.4; O2SAT 95
[2024-07-07 06:45] VITALS: BP 102/52; PULSE 83; RESP 16; TEMP 36.9; O2SAT 96
[2024-07-07] MEDS: Fluticasone/Umeclidinium/Vilanterol 200/62.5/25 BLST.W.DEV 1 PUFF INHALE (07:38)
[2024-07-07 07:40] VITALS: PULSE 90; RESP 16; O2SAT 95
[2024-07-07] MEDS: Albuterol/Iprat 2.5/0.5MG 3 ML AMPUL.NEB INHALE ×2 (07:40→11:34)
[2024-07-07] MEDS: busPIRone HCl 10 MG TABLET PO (08:56)
[2024-07-07] MEDS: Loratadine 10 MG TABLET PO (08:56)
[2024-07-07] MEDS: Gabapentin 300 MG CAPSULE PO (08:56)
[2024-07-07] MEDS: Roflumilast 500 MCG TABLET PO (08:56)
[2024-07-07] MEDS: 0.9 % Sodium Chloride Flush 3 ML SYRINGE IVFLUSH (09:04)
--- NOTE | 2024-07-07 09:54 | HO.POSTANES ---
Post Anesthesia Evaluation Post Anesthesia Evaluation Date of Service: 07/07/24 Vital Signs: Vital Signs Temp Pulse Resp BP Pulse Ox O2 Del Method O2 Flow Rate 07/07/24 07:40 90 16 07/07/24 06:45 98.5 F 83 16 102/52 L 96 Nasal Cannula 2 07/07/24 03:50 97.6 F 77 16 113/57 L 95 Nasal Cannula 2 07/06/24 23:58 97.1 F 77 16 117/53 L 98 Nasal Cannula 2 Anesthesia: General Mental Status: Awake Pain Control: Satisfactory Nausea/Vomiting: None Hydration: Adequate Anesthesia-Related Issues: No Anes. Related Issues
[2024-07-07 10:27] LABS: Creatinine Clr Calc Pharmacy 32.6; Estimated Glomerular Filt Rate 41
--- NOTE | 2024-07-07 10:47 | MHC.CM.PN ---
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 PT VERIFIES PCP/HCP ON FILE IS CORRECT. PT DISCHARGING HOME SELF-CARE TODAY 07/07/24
[2024-07-07 10:59] VITALS: BP 105/54; PULSE 97; RESP 18; TEMP 37.1; O2SAT 93
[2024-07-07 11:14] LABS: Glucose, Whole Blood 113 mg/dL (60-115)
[2024-07-07 11:34] VITALS: PULSE 99; RESP 18; O2SAT 90
--- NOTE | 2024-07-07 13:28 | P.PNUR_ITS ---
Subjective Subjective Date of Service: 07/07/24 Patient reports: pain is less Interval history: Carole is a 73-year-old woman PMH COPD in addition to obstructive sleep apnea, s/p cystoscopy TURBT on 07/06/24 admitted overnight for observation for airway monitoring and pain management. The patient is more comfortable today. O2 Sat >92% on RA. Plan discharge with larsen to gravity. Physical Exam 2 Vital Signs: Vital Signs: Last Vital Signs Temp 98.7 F 07/07/24 10:59 Pulse 99 07/07/24 11:34 Resp 18 07/07/24 11:34 BP 105/54 L 07/07/24 10:59 Pulse Ox 93 07/07/24 10:59 O2 Del Method Room Air 07/07/24 10:59 O2 Flow Rate 2 07/07/24 06:45 BMI result Body Mass Index 28.5 Urology Results Labs 07/07/24 10:04 Labs: Laboratory Results - last 24 hr 07/06/24 07/06/24 07/07/24 13:40 20:57 10:04 Creatinine 1.29 Estim Creat Clear Calc 32.6 Estimated GFR 41 POC Glucose 99 330 H 07/07/24 10:59 Creatinine Estim Creat Clear Calc Estimated GFR POC Glucose 113 Progress Note: A&P Assessment and plan (1) Bladder mass: Status: Acute (2) Asthma-COPD overlap syndrome: Status: Acute (3) Post-operative pain: Status: Acute Plan Discharge home with larsen. Pyridium, Myrbetriq Time Spent With Patient Time: Total time managing care of this patient today ____ minutes.
--- NOTE | 2024-07-07 13:42 | P.DS_ITS ---
DS: Providers Provider Date of Service: 07/07/24 Date of admission: 07/06/24 Date of discharge: 07/07/24 Primary care physician: Flower Miranda MD Attending physician on admission: Abran Hayes Attending physician on discharge: Abran Hayes DS: Diagnosis Discharge Diagnosis (1) Bladder mass: Status: Acute (2) Asthma-COPD overlap syndrome: Status: Acute (3) Post-operative pain: Status: Acute DS: Summary Hospital Course Hospital Course: Carole is a 73-year-old woman PMH COPD in addition to obstructive sleep apnea, s/p cystoscopy TURBT on 07/06/24 admitted overnight for observation for airway monitoring and pain management. Status at Discharge Cognitive/behavioral status at discharge: Stable Overall status at discharge: patient is back to baseline Time Attestation Total time managing care of this patient today: 42 mintues. Discharge Coordination Time (in mins): 42 min Quality: Safe Use of Opioids Does Pt have an Active Cancer Diagnosis on the Problem List?: Yes Opioid Measure Date for [facility] Report: 06/07/24 Opioid Measure Time for [facility] Report: 13:56 Quality: Stroke Does the patient have a stroke diagnosis?: No Physical Exam Vital Signs: Vital Signs: Last Vital Signs Temp 98.7 F 07/07/24 10:59 Pulse 99 07/07/24 11:34 Resp 18 07/07/24 11:34 BP 105/54 L 07/07/24 10:59 Pulse Ox 93 07/07/24 10:59 O2 Del Method Room Air 07/07/24 10:59 O2 Flow Rate 2 07/07/24 06:45 BMI result Body Mass Index 28.5 DS: Data Data Completed and Pending Pending studies at discharge: Pending at discharge 07/06/24 14:55 Surgical [PTH] Routine Labs on day of discharge: Laboratory Results - last 24 hr 07/06/24 07/06/24 07/07/24 13:40 20:57 10:04 Creatinine 1.29 Estim Creat Clear Calc 32.6 Estimated GFR 41 POC Glucose 99 330 H 07/07/24 10:59 Creatinine Estim Creat Clear Calc Estimated GFR POC Glucose 113 Preliminary micro results at discharge 07/06/24 Unknown Urine Culture - Preliminary Urine Catheterized - Straight Catheter Culture in progress. Discharge Plan Discharge Patient Disposition: Home, Self-Care Referrals: Flower High MD [Primary Care Provider] - 1 Week Discharge Medications: New doxycycline hyclate 100 mg capsule 100 mg PO BID Qty: 6 0RF mirabegron [Myrbetriq] 50 mg tablet extended release 24 hr 50 mg PO DAILY Qty: 30 0RF Azo Urinary Pain Relief 99.5 mg tablet 199 mg PO BID Qty: 40 0RF Rx Instructions: administer with meals breakfast and dinner Continued albuterol sulfate 2.5 mg /3 mL (0.083 %) solution for nebulization 2.5 mg inhalation QID Qty: 180 0RF cyanocobalamin (vitamin B-12) 1,000 mcg tablet 1,000 mcg PO QPM linagliptin 5 mg tablet 5 mg PO DAILY cholecalciferol (vitamin D3) 50 mcg (2,000 unit) capsule 50 mcg PO DAILY cetirizine 10 mg tablet 10 mg PO DAILY metformin 500 mg tablet 1,000 mg PO BEDTIME gabapentin 300 mg capsule 300 mg PO TID sertraline 100 mg tablet 150 mg PO DAILY buspirone 10 mg tablet 10 mg PO BID rosuvastatin 40 mg tablet 40 mg PO BEDTIME lisinopril-hydrochlorothiazide 20-12.5 mg tablet 1 tab PO DAILY Trelegy Ellipta 200-62.5-25 mcg blister with device 1 inh INHALATION DAILY Qty: 60 2RF ipratropium-albuterol 0.5 mg-3 mg(2.5 mg base)/3 mL solution for nebulization 3 ml inhalation QID 30 Days Qty: 360 11RF albuterol sulfate 90 mcg/actuation HFA aerosol inhaler 2 puff PO Q6H PRN (Reason: shortness of breath or wheezing) 30 Days Qty: 8.5 11RF (DME) nebulizers Misc See Rx Instructions .Route Rx Instructions: As directed montelukast [Singulair] 10 mg tablet 10 mg PO BEDTIME 90 Days Qty: 90 3RF roflumilast [Daliresp] 500 mcg tablet 500 mcg PO DAILY 30 Days Qty: 30 11RF calcium carbonate 500 mg calcium (1,250 mg) tablet 500 mg PO BID (DME) lancets [TRUEplus Lancets] 33 gauge misc See Rx Instructions .ROUTE .MEDSUPPLY Qty: 100 Rx Instructions: As directed Held aspirin 81 mg tablet,delayed release (DR/EC) 81 mg PO BEDTIME Hold Instructions: Resume on 07/14/24. Discontinued amoxicillin-pot clavulanate 875-125 mg tablet 1 tab PO BID 10 Days Qty: 20 0RF Discharge Orders: Discharge Order (Routine); Ordered 07/06/24 Ordered By: Abran Hayes Diet: Advance to usual diet Activity on Discharge: As tolerated Activity Restrictions/Additional Instructions: Discharge with larsen to leg bag and gravity bag to use at bedtime. Nursing to review catheter care. Office staff with contact patient for follow up Urology nurse visit next week to remove larsen. Do not resume aspirin untial 07/14/24. Print Language: [place]an
--- NOTE | 2024-07-07 15:07 | PC.NURSE ---
Patient weaned off supplementary oxygen this morning. Patient and daughter refused voice instructor for discharge instructions. Current lower abdominal pain rated as 0/10. Educated on use of larsen catheter gravity bag and how to transition to leg bag. Signs and symptoms of when to seek emergency follow-up discussed. Reviewed new medications and next doses with daughter and patient. At time of discharge, patient denies shortness of breath (states breathing is at baseline), palpitations, chest pain, abdominal pain. Follow-up appointments discussed. IV removed with tip intact. Patient tolerated without complications. Continuous O2 monitor removed. All questions were answered. Patient transported off unit via wheelchair.
== END 2024-07-07 15:15 | disposition home or self-care (01) ==
LOC: HO.SSS 15:39 → HO.IMC 18:28
PROVIDERS: PCP Student in an Organized Health Care Education/Training Program; Visit Provider Urology
PROC: 0TBB8ZZ Excision of Bladder, Via Natural or Artificial Opening Endoscopic (ICD-10-PCS; CPT 52240; principal; 2024-07-06 14:50)
DX: N32.89 Other specified disorders of bladder (principal); C67.4 Malignant neoplasm of posterior wall of bladder; C67.2 Malignant neoplasm of lateral wall of bladder; Z85.51 Personal history of malignant neoplasm of bladder; R82.89 Other abnormal findings on cytological and histological examination of urine; R31.0 Gross hematuria; R30.0 Dysuria; I10 Essential (primary) hypertension; E11.9 Type 2 diabetes mellitus without complications; J44.9 Chronic obstructive pulmonary disease, unspecified; J45.51 Severe persistent asthma with (acute) exacerbation; R09.02 Hypoxemia; R06.02 Shortness of breath; G89.18 Other acute postprocedural pain; G47.33 Obstructive sleep apnea (adult) (pediatric); M85.80 Other specified disorders of bone density and structure, unspecified site; Z79.82 Long term (current) use of aspirin; Z79.51 Long term (current) use of inhaled steroids; Z79.52 Long term (current) use of systemic steroids; Z79.84 Long term (current) use of oral hypoglycemic drugs; Z79.899 Other long term (current) drug therapy; Z87.891 Personal history of nicotine dependence; Z98.890 Other specified postprocedural states
CPT/HCPCS: 52240; 52204; 36415; 82565; 82947; 87086; 87186; 88307; C1758; J0131; J1100; J1885; J2250; J2405; J3010

== ENCOUNTER → 2024-07-06 08:36 | Outpatient (BNV) | payer OTHER, SELFPAY | PROVIDERS: PCP Student in an Organized Health Care Education/Training Program; Visit Provider Urology | DX: N32.89 Other specified disorders of bladder (principal); J44.9 Chronic obstructive pulmonary disease, unspecified; G89.18 Other acute postprocedural pain | CPT/HCPCS: 52240; 99213; 99499 ==

== ENCOUNTER 2024-07-19 15:08 | Outpatient (AMB) | payer OTHER, SELFPAY ==
--- NOTE | 2024-07-19 15:29 | MHC.OFFVIS ---
Intake Visit Reasons: TURBT, follow up Intake Note: Patient is present for TURBT follow up Urology Medication:VITAMIN B12 Antibiotic Allergy:NONE Blood Thinner:Aspirin Service Officer Required: Yes Service Officer Language: Shredder Picker Services: Service Officer Present Allergies No Known Allergies [No Known Allergies*] Allergy (Verified 07/19/24 15:30) HPI Comments Details: 07/19/24--Carole is status post cystoscopy transurethral resection bladder tumors on 07/06/24. Her daughter is present. In review of pathology result it notes low-grade papillary urothelial carcinoma noninvasive muscularis propria present. Although the tissue results are low-grade because of the multiple tumors I am recommending further treatment with chemotherapy bladder installations. Path--07/06/24---Low-grade papillary urothelial carcinoma, noninvasive. -Muscularis propria present. History of Present Illness The patient is a 73-year-old female presenting for follow-up management of low-grade papillary urothelial carcinoma. She underwent cystoscopy and transurethral resection of bladder tumors on 07/06/2024, revealing low-grade papillary carcinoma that was noninvasive into the muscular layer. The pathology findings showed several small tumors located in different bladder areas. This superficial carcinoma did not penetrate the bladder muscle, though multiple sites of potential new growths necessitate further intervention. Bladder instillations for intravesical chemotherapy have been proposed as a treatment to address these multiple sites. The patient has experienced no significant urinary symptoms such as incontinence or frequency since the surgery. Her postoperative course appears stable. Urinary Symptoms Review - No significant increase in urinary frequency post-procedure - No current incontinence issues reported - No presence of urgency or nocturia - No dysuria noted post-procedure Results - 07/06/24-Pathology: Low-grade papillary urothelial carcinoma, noninvasive muscularis propria present 04/12/2024--Carole is here for office cystoscopy. History of bladder cancer. CT urogram is pending. Urine cytology 1725- for malignant cells. Will repeat urine cytology Cystoscopy findings: greater than 2 papillary bladder tumors, left lat wall, posterior wall. Patient will need Pulmonary clearance prior. 02/23/2024--Carole is a 73-year-old past medical history diabetes history of nicotine use, was seen by Dr. Romeo Cazares III, in the past and diagnosed with bladder cancer review of her chart notes a pathology from 08/18/2018 left lateral wall resected tissue papillary urothelial carcinoma low-grade foci of high-grade noninvasive, muscularis propria present in specimen. She complains of seeing blood in the urine and burning with urination. Urine cytology 09/02/22--few atypical urothelial cells. Comorbidity nicotine use. [facility] Medical History Bladder mass Personal history of nicotine dependence Osteopenia Bladder cancer (~2018) Hypertension Diabetes mellitus Asthma-COPD overlap syndrome JIMBO (obstructive sleep apnea) Nicotine dependence, cigarettes, uncomplicated Bilateral anterior knee pain Surgical History History of transurethral resection of bladder tumor (TURBT) History of esophagogastroduodenoscopy (EGD) History of colonoscopy Social History Household Members: None Housing: Apartment Are you a primary hospice spiritual care coordinator to a significant other at home: No Do you presently have visiting nurse or other home services: Yes (INFORMATION AND DATA ARCHITECT ANALYST (daughter)) Patient Tobacco Use Status: Former Tobacco user Tobacco use type: Cigarette Cigarettes Per Day: 1 Years Smoked: (onset 15yr,s 1/2-1ppd x 50yrs, 35pyh, quit 2020) service: No Current occupational status: retired and disabled 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 Review of Systems Const All systems reviewed & are unremarkable except as noted in HPI and below Reports no additional complaints Eyes Reports no additional complaints ENT Reports no additional complaints Card Reports no additional complaints Resp Reports no additional complaints GI Reports no additional complaints Reports as per HPI Musc Reports no additional complaints Skin/Breast Reports system reviewed and no additional complaints, except as documented Neuro Reports no additional complaints Psych Reports no additional complaints Endo Reports no additional complaints Kiran/Lymph Reports no additional complaints Aller/Immun Reports no additional complaints Results AMB Urinalysis, Automated UA Leukoctes 0 Sedrick/uL Last Edit by Arlet Dunlap on 07/19/24 16:43 UA Nitrite Negative Last Edit by Arlet Dunlap on 07/19/24 16:43 UA Urobilinogen 3.5 mg/dL Last Edit by Arlet Dunlap on 07/19/24 16:43 UA Protein 0 mg/dL Last Edit by Arlet Dunlap on 07/19/24 16:43 UA pH 5.5 Last Edit by Arlet Dunlap on 07/19/24 16:43 UA Blood 80 Herman/uL Last Edit by Arlet Dunlap on 07/19/24 16:43 UA Specific Avalon 1.015 Last Edit by Arlet Dunlap on 07/19/24 16:43 UA Ketone Negative Last Edit by Arlet Dunlap on 07/19/24 16:43 UA Bilirubin 0 mg/dL Last Edit by Arlet Dunlap on 07/19/24 16:43 UA Glucose 60 mg/dL Last Edit by Arlet Dunlap on 07/19/24 16:43 Results Reviewed Results Reviewed: Laboratory Last Values Urine pH (Auto) 5.5 07/19/24 16:35 Specific Avalon (Auto) 1.015 07/19/24 16:35 Urine Protein (Auto) 0 mg/dL 07/19/24 16:35 Glucose (UA)(Auto) 60 mg/dL 07/19/24 16:35 Urine Ketones (Auto) Negative 07/19/24 16:35 Urine Blood (Auto) 80 Herman/uL 07/19/24 16:35 Urine Nitrite (Auto) Negative 07/19/24 16:35 Urine Bilirubin (Auto) 0 mg/dL 07/19/24 16:35 Urine Urobilinogen (Auto) 3.5 mg/dL 07/19/24 16:35 Leukocyte Esterase (Auto) 0 Sedrick/uL 07/19/24 16:35 Bladder biopsies--Collected: 07/06/24 Location: [facility] Received: 07/07/24 Diagnosis A. Bladder, posterior wall tumor, biopsy: -Low-grade papillary urothelial carcinoma, noninvasive. -Muscularis propria present. Synoptic report - Bladder, transurethral resection/biopsy Procedure: Biopsy Tumor site: Posterior wall Histologic type: Papillary urothelial carcinoma, non-invasive Histologic grade: Low-grade Muscularis propria: Present Extent of invasion: Noninvasive papillary carcinoma Lymphovascular invasion: N/A B. Bladder, multiple sites including right lateral wall, transurethral resection: -Low-grade papillary urothelial carcinoma, noninvasive. -Muscularis propria present. Synoptic report - Bladder, transurethral resection/biopsy Procedure: Transurethral resection Tumor site: Per operative note: multiple sites including right lateral wall Histologic type: Papillary urothelial carcinoma, non-invasive Histologic grade: Low-grade Muscularis propria: Present Extent of invasion: Noninvasive papillary carcinoma Lymphovascular invasion: N/A Clinical History Bladder tumor Urine Cytology--Collected: 02/23/24 Location: [facility] Received: 02/24/24 Diagnosis Urine: Negative for high-grade urothelial carcinoma; yeast present. See comment. COMMENT: Cellular specimen consisting of few single urothelial cells, squamous cells, mixed inflammatory cells and yeast forms consistent with Rachel species. Clinical History Personal history of malignant neoplasm of bladder Material Received Urine Gross Description Received is 18 cc of clear yellow fluid from which a ThinPrep slide is prepared. Assessment & Plan Assessment & Plan (1) Asthma-COPD overlap syndrome: Code(s): J44.9 - Chronic obstructive pulmonary disease, unspecified Category: Medical (2) JIMBO (obstructive sleep apnea): Code(s): G47.33 - Obstructive sleep apnea (adult) (pediatric) Category: Medical (3) Personal history of nicotine dependence: Comment: (onset 15yr,s 1/2-1ppd x 50yrs, 35pyh, quit 2020) Code(s): Z87.891 - Personal history of nicotine dependence Category: Medical (4) Bladder cancer: Onset Date: ~2018 Comment: (papillary urothelial carcinoma - non-invasive low grade - s/p TURBT 08/2018, 07/06/24 Code(s): C67.9 - Malignant neoplasm of bladder, unspecified Category: Medical Plan Schedule chemotherapy bladder installations gemcitabine Orders: Orders AMB Urinalysis Automated Today R30.0 - Dysuria, R31.0 - Gross hematuria, R82.89 - Other abnormal findings on cytological and histological examination of urine, Z85.51 - Personal history of malignant neoplasm of bladder Patient Instructions: The patient had an opportunity to ask questions regarding treatment plan. The patient expressed understanding and agreement with the above treatment plan. The patient is aware they should contact our office by phone for worsening of their current condition or the appearance of new symptoms. Compliance is encouraged with any medications and followup testing that is ordered. It is a privilege to be allowed the opportunity to participate in the urologic care of your patient. If you have any questions or concerns regarding treatment for the above conditions please do not hesitate to contact me. The office telephone contact is [phone]. This note is constructed in part using voice recognition software. While every effort has been made to ensure accuracy professor/nurse anesthetist errors may have been included. Yours sincerely, Abran Hayes MD Scribe Plan - Not visible on output: Patient was informed and verbally consented to the use of an ambient scribe for clinic note documentation during this visit. Coding Level of Care Code Est Pt Level 4 (53152) Complex EM visit Add On G2211 Diagnoses Asthma-COPD overlap syndrome J44.9 JIMBO (obstructive sleep apnea) G47.33 Personal history of nicotine dependence Z87.891 Bladder cancer C67.9
--- OUTSIDE RECORDS SUMMARY | 2024-07-19 16:23 | XMS_ITS | Encounter Summary ---
Author Organization [employer] Address [address] [facility] [address] [place] [address] Care Team Providers Care Log Raft Worker Name Role Phone Flower High MD Primary Care Pro vider Reason for Visit * Reason Comments Med Refill Encounter Details Date Type Department Care Team ([facility] st Contact Info) Description 05/30/2023 Refill [facility] [address] [place] [address] Flower High MD [address] [place] [address] Chronic midline low back pain without sciatica [...] Description 09/01/2024 2:15 PM EDT Office Visit [facility] [address] [place] [phone] Flower High MD [address] [place] [phone] documented as of this encounter Visit Diagnoses Diagnosis Chronic midline low back pain without sciatica documented in this encounter Additional Health Concerns Assessment Noted Time PHQ-9 Depression Total Score: 0 01/07/20 23 1:19 PM EST documented as of this encounter Care Teams Log Raft Worker Relationship Specialty Start Date End Date Flower High MD [address] [place] [phone] PCP - General Internal Medicine 07/19/22 Ashok 06/08/24 documented as of this encounter
== END 2024-07-19 15:59 | disposition home or self-care (01) ==
LOC: HO.HUSH 15:08
PROVIDERS: PCP Student in an Organized Health Care Education/Training Program; Visit Provider Urology
DX: J44.9 Chronic obstructive pulmonary disease, unspecified (principal); G47.33 Obstructive sleep apnea (adult) (pediatric); Z87.891 Personal history of nicotine dependence; C67.9 Malignant neoplasm of bladder, unspecified
CPT/HCPCS: 99214; G2211

== ENCOUNTER → 2024-07-19 15:08 | Outpatient (BNVA) | payer OTHER, SELFPAY | PROVIDERS: PCP Student in an Organized Health Care Education/Training Program; Visit Provider Urology | DX: J44.9 Chronic obstructive pulmonary disease, unspecified (principal); G47.33 Obstructive sleep apnea (adult) (pediatric); C67.9 Malignant neoplasm of bladder, unspecified; Z87.891 Personal history of nicotine dependence | CPT/HCPCS: 81003; 99212 ==

== ENCOUNTER 2024-08-16 10:54 | Outpatient (REF) | payer OTHER, SELFPAY ==
--- NOTE | ~2024-08-16 | XR_ITS ---
EXAMINATION: XR THORACIC SPINE CLINICAL INFORMATION: CHRONIC SEVERE MID BACK AND BILATERAL LOW BACK pain COMPARISON: None available. TECHNIQUE: AP, lateral, and swimmer's view of the thoracic spine were obtained. FINDINGS: Vertebral body height and alignment is preserved. There is mild disc space narrowing at T11-12 and T12-L1 with anterior osteophytes. No abnormalities are evident. XR/XR thoracic spine 2V IMPRESSION: Mild degenerative disc disease T11-12 and T12-L1 . Electronically signed by: Levi Ugarte MD 08/16/2024 12:39 PM EDT
--- NOTE | ~2024-08-16 | XR_ITS ---
EXAMINATION: XR LUMBOSACRAL SPINE CLINICAL INFORMATION: severe mid to low back pain COMPARISON: None available. TECHNIQUE: Three views of the lumbosacral spine. FINDINGS: Vascular calcification is present in the aorta. There are 5 nonrib-bearing lumbar segments with sacralized L5 segment. There is 15 degrees levoscoliosis. T12-L1: Moderate disc space narrowing, subtle retrolisthesis, and anterior osteophytes. L1-2: Subtle retrolisthesis, mild to moderate disc space during, and endplate osteophytes and sclerosis. L2-3: Subtle retrolisthesis. L3-4: Subtle retrolisthesis. L4-5: Grade 1 anterolisthesis and facet osteophytes and sclerosis. L5-S1: Facet sclerosis and osteophytes. XR/XR lumbar spine 2-3V IMPRESSION: Mild scoliosis and degenerative changes most advanced at the thoracal lumbar junction. Electronically signed by: Levi Ugarte MD 08/16/2024 12:41 PM EDT
--- OUTSIDE RECORDS SUMMARY | 2024-08-16 11:44 | XMS_ITS | Encounter Summary ---
Author Organization [employer] Address [address] [facility] [address] [place] [address] Care Team Providers Care Skein Winder Name Role Phone Flower High MD Primary Care Pro vider Reason for Visit * Reason Comments Med Refill Encounter Details Date Type Department Care Team ([facility] st Contact Info) Description 05/30/2023 Refill [facility] [address] [place] [address] Flower High MD [address] [place] [address] Chronic midline low back pain without sciatica [...] Description 09/01/2024 2:15 PM EDT Office Visit [facility] [address] [place] [phone] Flower High MD [address] [place] [phone] documented as of this encounter Visit Diagnoses Diagnosis Chronic midline low back pain without sciatica documented in this encounter Additional Health Concerns Assessment Noted Time PHQ-9 Depression Total Score: 0 01/07/20 23 1:19 PM EST documented as of this encounter Care Teams Skein Winder Relationship Specialty Start Date End Date Flower High MD [address] [place] [phone] PCP - General Internal Medicine 07/19/22 Ashok 06/08/24 documented as of this encounter
== END 2024-08-16 10:55 | disposition home or self-care (01) ==
LOC: HO.HHCX 10:54
PROVIDERS: Visit Provider Family Medicine
DX: M54.50 Low back pain, unspecified (principal); G89.29 Other chronic pain
CPT/HCPCS: 72070; 72100

== ENCOUNTER → 2024-08-16 10:54 | Outpatient (BNV) | payer OTHER, SELFPAY | PROVIDERS: Visit Provider Radiology Diagnostic Radiology | DX: M51.35 Other intervertebral disc degeneration, thoracolumbar region (principal) | CPT/HCPCS: 72070; 72100 ==

== ENCOUNTER 2024-09-06 10:58 | Outpatient (AMB) | payer OTHER, SELFPAY ==
[2024-09-06 11:06] VITALS: BP 90/40; PULSE 100; O2SAT 94; BMI 26.7
--- NOTE | 2024-09-06 11:06 | A.OFFVIS_ITS ---
Vital Signs 09/06/24 11:06 Height 4 ft 11 in Weight 132 lb 4.438 oz BMI 26.7 BP 90/40 L Blood Pressure Location Lt brachial Position Standing Pulse 100 Pulse Source Pulse Oximeter Pulse Oximetry (%) 94 Oxygen Delivery Method Room Air Intake Visit Reasons: COPD Allergies No Known Allergies (No Known Allergies*) Allergy (Verified 09/06/24 11:13) HPI Comments Details: The patient is a 73-year-old woman known COPD in addition to obstructive sleep apnea. Apparently she has had multiple sleep studies in the past going back to 2010. She has had issues with hypoxia at nighttime. She has daytime drowsiness and does have headaches in the morning. Moderate severity. Her Lancaster score is elevated. Her last CPAP study was back in 2018 which she did have mild sleep apnea. The patient has become more symptomatic and she does carry cardiovascular risks so this point will repeat her study. I'm hoping home sleep study will be sufficient. In the meantime the patient continues to have shortness of breath she does use inhalers at home but is very confusing for her to know which 1 she is supposed to be using. I do think that we need to optimize respiratory therapy and improve her adherence and we can do this with trelegy. The patient has not had any recent pulmonary function study. She also has nasal congestion. She has had epistaxis. 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 She does use allergy medicines but still has significant congestion. Moderate severity. Complains of a postnasal drip and cough. We will try Astelin nasal spray. 10/27/2020 the patient is here for a pulmonary follow-up visit. She has had been having worsening respiratory symptoms. Has significant wheezing and chest congestion and cough. She has been like this now for few weeks. Seems to be getting worse. She had to stop the Daliresp as it was not helping. She also tried multiple numerous inhalers that have not been helpful. The only beneficial 1 was Bevespi. Will try her on Breztri at this at this time. In the meantime she continues to have significant daytime drowsiness. We did have her undergo a in-lab study. Her AHI was up to 30 consistent with severe sleep apnea. Patient needs to start CPAP therapy at this time. Will make arrangements with local [employer] company to start the therapy. In the meantime we did review her blood work demonstrating significant eosinophilia and also significant elevations in the IgE consistent with allergic asthma. The patient has required maximize respiratory therapy with partial resolution her symptoms and frequent prednisone. The patient is a great candidate for biologic therapy. She had been on Xolair in the past and that appear to be effective for her. I do believe that she brought will respond better to Dupixent at this time. 10/12/2021 The patient is here for a pulmonary follow up visit. She continues to struggle with her asthma. Developed worsening wheezing and productive cough. Prior to this she was doing well for several months. Unfortunately, she is grieving the of her daughter. Could not start the Daliresp. She was started on Dupixent and she feels that is working. We will continue to monitor her progress. If she continues to require prednisone then we could consider switching to Tezspire. 02/25/2022 the patient is here for a pulmonary follow-up visit. She is having worsening respiratory symptoms. Complaining of chest tightness and wheezing. Moderate severity. She was responding very well to the Dupixent. She was no longer requiring prednisone. Her respiratory symptoms were much improved. However for some reason she has not able to get the injections anymore. Will look into it further. Hoping for her to continue biologic therapy. The meantime she does have significant wheezing and will start her on prednisone. She also get her CPAP. The CPAP therapy will be affecting beneficial. Although still not adjusted for her. She is having issues because is having too much water draining to her mask. I also see that she is using a nasal pillow mask. This is that appear to be effective for her. Therefore I did provide her with an F20 fullface mask. We continue with the APAP at the current settings but I brought the humidity down to 1. I am hopeful that she can tolerated better. She will bring in the next few months in order to make sure that she is doing better with. She is aware that she needs to use it at least 4 hours a day. 04/25/2023 the patient is here for sick visit. She has had worsening respiratory symptoms for the last week. She is feeling that she is getting worse. Significant chest tightness and some wheezing. Moderate severity. Unfortunately her nebulizer tubing broken she has not been able to use it. She does have a Trelegy inhaler she has been using also her rescue inhaler. These therapies only been partially helpful. And only for short period of time. The patient has been struggling with significant wheezing. During the last visit she did require prednisone. Prior to that she had been on biologic therapies which have been very helpful. At this time will provide her with a nebulizer treatment in the office. After the treatment she was able to improves therefore will send her additional prednisone and antibiotics in the pharmacy. Patient also took the tubing were her to use her nebulizer home to to 4 times a day. If the patient is no better she will call the office for an earlier assessment. Although I so follow-up in 4-6 months. 10/27/2023 the patient is here for a pulmonary follow-up visit. She continues to struggle with breathing. Significant wheezing and chest congestion. Moderate to severe. She had been on multiple courses of prednisone. She was approved to restart her Dupixent but she did not get the prescription filled as of yet. I did walk the family to the pharmacy and she was able to pick it up. Therefore she can start as soon as possible. In the meantime she does have significant wheezing on examination and she must be treated for an asthma exacerbation at this time. She also has chronic bronchitis. Therefore will start azithromycin 3 times a week for chronic bronchitis treatment. She will need to get an EKG however. She will continue with the current respiratory therapy including Trelegy. The patient is also a former smoker. She Only quit this year. She has smoked for more than 40 years. She does have a greater than 30 pack-year history of smoking so therefore will go ahead and refer her to the lung cancer screening program at this time. 12/25/2023 the patient is here for a pulmonary follow-up visit. She is struggling with breathing again. She did get the Dupixent the last time but then she did not get it mailed to her house so she was not taking it regularly. She continues use her respiratory therapy with partial improvement. She also was using the azithromycin 3 times a week without any significant improvement. Therefore she can stop that and will going to send her different antibiotic to the pharmacy. The patient is going to require Solu-Medrol today she has significant wheezing. And she needs to continue the Dupixent every 2 weeks more coherently. When she returns in 6-8 weeks will reassess. If she continues to have difficulties will switch over her biologic to a different agent. Will go ahead have her get an x-ray today. Consider bronchoscopy to better address the airways further if she does not getting any improvement. 04/09/2024 the patient is here for a pulmonary follow-up visit. She is having hard time breathing for the last couple weeks. She has been having hard time sleeping because of the shortness of breath. Moderate to severe. She has been using her Dupixent injections every 2 weeks. For some reason she ran out of her inhalers. Will go ahead and send him off to the pharmacy again. But at this point the patient is requiring Solu-Medrol prednisone every visit. Therefore the Dupixent is not helping her. Will go ahead and switch over to test prior at this time. In the meantime she will receive Solu-Medrol today for the significant wheezing and will start a course of antibiotics and prednisone. If the patient is to worsen she needs to go to the ER. We also did look at her CT scan of the chest which was personally by me. She had as far as the lung cancer screening program. Everything stable. 09/06/2024 the patient is here for a pulmonary follow-up visit. She continues to struggle with her breathing. She gets very short of breath even with minimal activity. Now specially with the heat in the humidity. She continues use the nebulizer 4 times a day and also has been on Trelegy. Will go ahead and start her on a small dose of prednisone. The patient already tried multiple biologic therapies without any significant relief. She stopped the test prior because she did not see any benefit. She also was diagnosed with bladder cancer now following closely with urology. She will stay on a small dose of prednisone for little bit of 10 mg to see if this provides any relief. We can also consider th eophylline as an option. But the most important things that she is still smoking cigarettes. The patient has smokes cigarettes and she was given Nicorette gum. Will go ahead and place her on a medium nicotine patch and then she can have the gum for breakthrough. We did talk about the instructions on how much she can actually used to avoid going over 20 mg of nicotine altogether a day. [facility] Medical History Bladder mass Personal history of nicotine dependence Osteopenia Bladder cancer (~2019) Hypertension Diabetes mellitus Asthma-COPD overlap syndrome JIMBO (obstructive sleep apnea) Nicotine dependence, cigarettes, uncomplicated Bilateral anterior knee pain Surgical History History of transurethral resection of bladder tumor (TURBT) History of esophagogastroduodenoscopy (EGD) History of colonoscopy Social History Household Members: None Housing: Apartment Are you a primary healthcare prof to a significant other at home: No Do you presently have visiting nurse or other home services: Yes ([employer] (daughter)) Patient Tobacco Use Status: Former Tobacco user Tobacco use type: Cigarette Cigarettes Per Day: 1 Years Smoked: (onset 15yr,s 1/2-1ppd x 50yrs, 35pyh, quit 2020) service: No Current occupational status: retired and disabled 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 Review of Systems Const Denies night sweats ENT Denies change in voice, Denies lip swelling, Denies mouth pain, Reports nasal congestion, Reports nasal discharge and Denies tongue swelling Card Denies chest pain and Reports dyspnea on exertion Resp Reports chest congestion, Reports cough, Denies hemoptysis, Reports dyspnea on exertion and Reports wheezing GI Denies abdominal pain Musc Denies no additional complaints Neuro Denies Neuro-related abnormal movements Psych Denies no additional complaints Kiran/Lymph Denies easy bleeding and Denies lymphadenopathy Aller/Immun Denies lip swelling, Denies tongue swelling and Reports wheezing Physical Exam Vital Signs: Last Vital Signs Pulse 100 09/06/24 11:06 BP 90/40 L 09/06/24 11:06 Pulse Ox 94 09/06/24 11:06 Oxygen Delivery Method Room Air 09/06/24 11:06 BMI result Body Mass Index 26.7 Const General: alert Neck Neck: Yes normal visual inspection, Yes full ROM and Yes no lymphadenopathy Chest Chest palpation & inspection: normal inspection of the chest Resp Effort & Inspection: prolonged expiratory phase Auscultation: wheezes and diminished lung sounds Cardio Rate: regular rate Rhythm: regular rhythm Heart sounds: S1 normal heart sound present and S2 normal heart sound present GI Palpation (GI): Soft to palpation and nontender Auscultation: normal bowel sounds Skin General skin exam: rashes and/or lesions noted Assessment & Plan Assessment & Plan (1) Asthma: Code(s): J45.909 - Unspecified asthma, uncomplicated Category: Medical Qualifiers: Asthma complication type: with acute exacerbation Asthma persistence: persistent Asthma severity: severe Qualified Code(s): J45.51 - Severe persistent asthma with (acute) exacerbation (2) Asthma-COPD overlap syndrome: Code(s): J44.9 - Chronic obstructive pulmonary disease, unspecified Category: Medical (3) JIMBO (obstructive sleep apnea): Code(s): G47.33 - Obstructive sleep apnea (adult) (pediatric) Category: Medical (4) Nicotine dependence, cigarettes, uncomplicated: Comment: (>30pyh) Code(s): F17.210 - Nicotine dependence, cigarettes, uncomplicated Category: Medical Plan restart Prednisone 10mg daily Duoneb QID BUdesonide BID Nebulizer with albuterol 3-4 times aday continue Trelegy 200mcg JULIO as needed Continue Claritin/astelin/Singulair Continue Fluticasone NS continue APAP, provided her a med F20 mask stppedTezspire smoking cessation: nicotine patch and gum Overnight oximetry on RA F/U 3-4 months Orders: Orders Overnight Pulse Oximetry Today J44.9 - Chronic obstructive pulmonary disease, unspecified Medications: New nicotine 1 patch transdermal DAILY 28 ea 3RF 28 days albuterol sulfate 90 mcg/actuation 2 puffs inhalation Q6H PRN 18 grams 11RF shortness of breath or wheezing 30 days J45.909 - Unspecified asthma, uncomplicated prednisone 10 mg PO DAILY 30 tabs 1RF 30 days Coding Level of Care Code Est Pt Level 4 (00141) Complex EM visit Add On G2211 Diagnoses Severe persistent asthma with acute exacerbation J45.51 Asthma complication type: with acute exacerbation Asthma persistence: persistent Asthma severity: severe Asthma-COPD overlap syndrome J44.9 JIMBO (obstructive sleep apnea) G47.33 Nicotine dependence, cigarettes, uncomplicated F17.210 Time Spent (min) 17
--- OUTSIDE RECORDS SUMMARY | 2024-09-06 12:09 | XMS_ITS | Encounter Summary ---
Author Organization [employer] Address [address] [place] [address] Care Team Providers Care Nuclear Equipment Operator Name Role Phone Flower High MD Primary Care Pro vider Encounter Details Date Type Department Care Team (Latest Contact Info) Description 09/01/2024 Travel Social History Tobacco Use Types Packs/Day [...] Date Recorded Patient Health Questionnaire-9 Score 0 09/01/2024 Patient Health Questionnaire-9 Score 0 09/01/2024 Last PHQ-9: Questionnaire Data Not on file 0 09/01/2024 Housing Stability Answer Date Recorded What is your housing situation today? I have tomas ashley 09/01/[address] you li ve. Do you have problems with any of the following? None of the above 09/01/2024 Food Insecurity Answer Date Recorded Within the [...] Date Recorded Patient Health Questionnaire-2 Score 0 09/01/2024 Internet Access Answer Date Recorded Internet Access Q1 Yes 12/17/2023 Internet Access Q2 Not on file 12/17/2023 Comments Unknown Sex and Gender Information Value Date Recorded Sex Assigned at Female 12/17/2021 10:14 AM EDT Legal Sex Female 10:14 AM EDT Gender Identity Female 12/17/2021 10:14 AM EDT Sexual Orientation Straight 12/17/2021 10 :14 AM EDT documented as of this encounter Functional Status * Over the past 2 weeks, how often have you been bothered by any of the following problems? Question Answer Date of Assessment Author Patient Health Questionnaire -2 Score 0 09/01/2024 2:30 PM EDT Angelica Rod MA * Little interest or pleasure in doing things Answer Date of Assessment Author Not at all 09/01/2024 2:30 PM EDT Hailee Rod MA * Feeling down, depressed, or hopeless Answer Date of Assessment Author Not at all 09/01/2024 2:30 PM HEATHERT Hailee Rod MA * Trouble falling or staying asleep, or sleeping too much Answer Date of Assessment Author Not at all 09/01/2024 2:30 PM HEATHERT Hailee Rod MA * Feeling tired or having little energy Answer Date of Assessment Author Not at all 09/01/2024 2:30 PM EDT Hailee Rod MA * Poor appetite or overeating Answer Date of Assessment Author Not at all 09/01/2024 2:30 PM HEATHERT Hailee Rod MA * Feeling bad about yourself - or that you are a failure or have let yourself or your family down Answer Date of Assessment Author Not at all 09/01/2024 2:30 PM EDT Hailee Rod MA * Trouble concentrating on things, such as reading the newspaper or watching television Answer Date of Assessment Author Not at all 09/01/2024 2:30 PM EDT Hailee Rod MA * Moving or speaking so slowly that other people could have noticed? Or the opposite - being so fidgety or restless that you have been moving around a lot more than usual. Answer Date of Assessment Author Not at all 09/01/2024 2:30 PM EDT Hailee Rod MA * Thoughts that you would be better off or hurting yourself in some way Answer Date of Assessment Author Not at all 09/01/2024 2:30 PM EDT Hailee Rod MA * Patient Health Questionnaire-9 Score Answer Date of Assessment Author 0 09/01/2024 2:30 PM EDT Hailee Rod MA * Over the last 2 weeks, how often have you been bothered by any of the following problems? Question Answer Date of Assessment Author Feeling nervous, anxious, or on edge 0 09/01/2024 2:30 PM EDT Angelica Rod MA Not being able to stop or co ntrol worrying 0 09/01/2024 2:30 PM EDT Angelica Rod MA Worrying too much about diff erent things 0 09/01/2024 2:30 PM EDT Angelica Rod MA Trouble relaxing 0 09/01/2024 2:30 PM EDT Angelica Noriega MA Being so restless that it is hard to sit still 0 09/01/2024 2:30 PM EDT Angelica Rod MA Becoming easily annoyed or irritable 0 09/01/2024 2:30 PM EDT Angelica Rod MA Feeling afraid as if somethi ng awful might happen 0 09/01/2024 2:30 PM EDT Angelica Rod MA IVÁN-7 Total Score 0 09/01/2024 2:30 PM EDT Angelica Rod MA documented as of this encounter Plan of Treatment Not on file documented as of this encounter Visit Diagnoses Not on filedocumented in this encounter Additional Health Concerns Assessment Noted Time PHQ-9 Depression Total Score: 0 09/02/19 2:30 PM EDT documented as of this encounter Care Teams Nuclear Equipment Operator Relationship Specialty Start Date End Date Flower High MD [address] [place] [id number] PCP - General Internal Medicine 07/19/22 Altranais 06/08/24 documented as of this encounter
== END 2024-09-06 11:42 | disposition home or self-care (01) ==
LOC: HO.HPS 10:59
PROVIDERS: PCP Student in an Organized Health Care Education/Training Program; Visit Provider Hospitalist
DX: J45.51 Severe persistent asthma with (acute) exacerbation (principal); J44.9 Chronic obstructive pulmonary disease, unspecified; G47.33 Obstructive sleep apnea (adult) (pediatric); F17.210 Nicotine dependence, cigarettes, uncomplicated
CPT/HCPCS: 99214; G2211

== ENCOUNTER → 2024-09-06 10:58 | Outpatient (BNVA) | payer OTHER, SELFPAY | PROVIDERS: PCP Student in an Organized Health Care Education/Training Program; Visit Provider Hospitalist | DX: J45.51 Severe persistent asthma with (acute) exacerbation (principal); J44.9 Chronic obstructive pulmonary disease, unspecified | CPT/HCPCS: 99212 ==

== ENCOUNTER 2024-09-09 13:43 | Outpatient (AMB) | payer OTHER, SELFPAY ==
[2024-09-09 13:45] VITALS: BMI 26.7
--- NOTE | 2024-09-09 13:45 | A.OFFVIS_ITS ---
Vital Signs 09/09/24 13:45 Height 4 ft 11 in Weight 132 lb BMI 26.7 Intake Visit Reasons: Inj-Left shoulder injection-last 05/26/23 Intake Note: Carole is a 73 year old right hand dominant female who presents today for a repeat left shoulder injection. Last injection was administered on 05/25/24. Patient reports last injection was helpful, as injection wore off she noticed index finger and thumb were locking and catching. She would like to repeat injection today. Allergies No Known Allergies (No Known Allergies*) Allergy (Verified 09/09/24 13:50) HPI HPI Inj-Left shoulder injection-last 05/26/23: Details: This is a 73-year-old woman who comes in today with right shoulder pain. She had an injection about a year ago and her right shoulder was helpful. Now she describes pain with overhead activity. She has pain at night. She has not done physical therapy and does not want to do physical therapy. She denies injury. [facility] Medical History Bladder mass Personal history of nicotine dependence Osteopenia Bladder cancer (~2018) Hypertension Diabetes mellitus Asthma-COPD overlap syndrome JIMBO (obstructive sleep apnea) Nicotine dependence, cigarettes, uncomplicated Bilateral anterior knee pain Surgical History History of transurethral resection of bladder tumor (TURBT) History of esophagogastroduodenoscopy (EGD) History of colonoscopy Social History Household Members: None Housing: Apartment Are you a primary medicare sales representative to a significant other at home: No Do you presently have visiting nurse or other home services: Yes ([employer] OPERATOR HELPER (daughter)) Patient Tobacco Use Status: Former Tobacco user Tobacco use type: Cigarette Cigarettes Per Day: 1 Years Smoked: (onset 15yr,s 1/2-1ppd x 50yrs, 35pyh, quit 2020) service: No Current occupational status: retired and disabled 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 Site was prepped using aseptic technique. Patient tolerated the procedure well. Shoulders, Hips, Knees, Shoulder Injection Large joint : Left Shoulder Coding Procedure code (CPT) selection complete Assessment & Plan Assessment & Plan (1) Impingement of left shoulder: Code(s): M25.812 - Other specified joint disorders, left shoulder Category: Medical Plan: 73-year-old diabetic with left shoulder pain. Her cuff is surprisingly strong. I injected her left shoulder today. She is not a surgical candidate. She is not interested in surgery. She can follow up as needed. (2) Diabetes mellitus: Code(s): E11.9 - Type 2 diabetes mellitus without complications Category: Medical Plan: I informed her of the hyperglycemic effects of steroids. Coding Level of Care Code Est Pt Level 4 (25731) Diagnoses Impingement of left shoulder M25.812 Diabetes mellitus E11.9 CPT Codes Shoulders, Hips, Knees, - Shoulder Injection Large joint : Left Shoulder ([id number])
--- OUTSIDE RECORDS SUMMARY | 2024-09-09 13:45 | XMS_ITS | Encounter Summary ---
Author Organization [employer] Address [address] [facility] [address] [place] [address] Care Team Providers Care Bulb Packer Name Role Phone Flower High MD Primary Care Pro vider Reason for Visit * Reason Comments Med Refill Encounter Details Date Type Department Care Team ([facility] st Contact Info) Description 05/30/2023 Refill [facility] [address] [place] [address] Flower High MD [address] [place] [address] Chronic midline low back pain without sciatica [...] documented as of this encounter Care Teams Bulb Packer Relationship Specialty Start Date End Date Flower High MD [address] [place] [id number] PCP - General Internal Medicine 07/19/22 Altranais 06/08/24 documented as of this encounter
== END 2024-09-09 14:10 | disposition home or self-care (01) ==
LOC: HO.HOS 13:43
PROVIDERS: PCP Student in an Organized Health Care Education/Training Program; Visit Provider Orthopaedic Surgery
DX: M25.812 Other specified joint disorders, left shoulder (principal); E11.9 Type 2 diabetes mellitus without complications
CPT/HCPCS: 20610; 99214

== ENCOUNTER → 2024-09-09 13:43 | Outpatient (BNVA) | payer OTHER, SELFPAY | PROVIDERS: PCP Student in an Organized Health Care Education/Training Program; Visit Provider Orthopaedic Surgery | DX: M25.812 Other specified joint disorders, left shoulder (principal); E11.9 Type 2 diabetes mellitus without complications | CPT/HCPCS: 20610; 99212; J0665; J1100; J2003 ==

== ENCOUNTER 2024-09-25 14:55 | Emergency (ER) | payer OTHER, SELFPAY ==
--- NOTE | ~2024-09-25 | CT_ITS ---
CLINICAL HISTORY: epigastric pain CT abdomen and pelvis with contrast Comparison: CT/SR - CT UROGRAM - 04/14/24 15:47 EST Findings: The lung bases are clear. The gallbladder and solid organs are within normal limits. No renal stones. Subcentimeter right renal cyst. Colonic diverticulosis without acute inflammation. No bowel obstruction, pneumatosis or pneumoperitoneum. 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 Aortic atherosclerosis. No aneurysm. Pelvic organs are within normal limits. Degenerative changes of the spine. Chronic grade 1 anterolisthesis of L4 on L5. No acute fracture. IMPRESSION: 1. No acute intraabdominal or pelvic pathology. This document has been electronically signed by: Roge Jenkins MD on 09/25/2024 19:01:14
--- NOTE | ~2024-09-25 | XR_ITS ---
CLINICAL HISTORY: SOB 2 view chest x-ray Comparison: CR/SR - XR CHEST 2V - 05/10/24 17:[address] [place] [id number] - 11/15/19 14:01 EDT Findings: The lungs are clear. Medial right middle lobe opacity corresponds to pericardial fat pad on prior CT. Normal size heart. No acute fracture. IMPRESSION: 1. No acute findings. This document has been electronically signed by: Roge Jenkins MD on 09/25/2024 16:01:26
[2024-09-25 15:06] VITALS: BP 136/60; PULSE 103; RESP 18; TEMP 36.6; O2SAT 94; BMI 25.9
--- NOTE | 2024-09-25 15:07 | ED.ABDPAIN ---
HPI - Abdominal Pain General Chief Complaint: General Medical Stated Complaint: abd pain , unable to eat Time Seen by Provider: 09/25/24 16:39 Source: patient and family Mode of arrival: ambulatory History of Present Illness ED Provider: Aranza HPI narrative: 73F w/ uterine cancer presents with increasing nausea and vomiting for a few days, denies SOB or chest pain, has been experiencing diarrhea, denies flatus. Related Data Home Medications ?Medication ?Instructions ?Recorded ?Confirmed aspirin 81 mg tablet,delayed 81 mg PO BEDTIME 07/11/20 07/06/24 release Held on 07/07/24. Instructions: Resume on 07/14/24. cetirizine 10 mg tablet 10 mg PO DAILY 07/11/20 07/06/24 cholecalciferol (vitamin D3) 50 50 mcg PO DAILY 07/11/20 07/06/24 mcg (2,000 unit) capsule gabapentin 300 mg capsule 300 mg PO TID 07/11/20 07/06/24 linagliptin 5 mg tablet 5 mg PO DAILY 07/11/20 07/06/24 metformin 500 mg tablet 1,000 mg PO BEDTIME 07/11/20 07/06/24 sertraline 100 mg tablet 150 mg PO DAILY 07/11/20 07/06/24 lisinopril 20 1 tab PO DAILY 10/12/21 07/06/24 mg-hydrochlorothiazide 12.5 mg tablet rosuvastatin 40 mg tablet 40 mg PO BEDTIME 10/12/21 07/06/24 buspirone 10 mg tablet 10 mg PO BID 02/25/22 07/06/24 cyanocobalamin (vitamin B-12) 1,000 mcg PO QPM 05/06/23 07/06/24 1,000 mcg tablet nebulizers 10/27/23 02/23/24 calcium carbonate 500 mg PO BID 02/23/24 07/06/24 lancets 33 gauge (TRUEplus Lancets) #100 ea 02/23/24 02/23/24 Previous Rx's ?Medication ?Instructions ?Recorded montelukast 10 mg tablet 10 mg PO BEDTIME 90 days #90 tabs 10/27/23 (Singulair) roflumilast 500 mcg tablet 500 mcg PO DAILY 30 days #30 tabs 12/25/23 (Daliresp) albuterol sulfate 90 mcg/actuation 2 puff PO Q6H PRN shortness of 04/09/24 aerosol inhaler breath or wheezing 30 days #8.5 grams fluticasone fur. 200 mcg-umeclid 1 inh inhalation DAILY #60 ea 04/09/24 62.5 mcg-vilant 25 mcg inhalat.powder (Trelegy Ellipta) ipratropium 0.5 mg-albuterol 3 mg 3 ml inhalation QID 30 days #360 mL 04/09/24 (2.5 mg base)/3 mL nebulization soln albuterol sulfate 2.5 mg/3 mL 2.5 mg (3 mL) inhalation QID 04/29/24 (0.083 %) solution for nebulization shortness of breath or wheezing #180 mL doxycycline hyclate 100 mg capsule 100 mg PO BID antibiotic #6 caps 07/06/24 mirabegron 50 mg tablet,extended 50 mg PO DAILY #30 tabs 07/07/24 release 24 hr (Myrbetriq) phenazopyridine 99.5 mg tablet 199 mg (2 x 99.5 mg) PO BID #40 07/07/24 (Azo Urinary Pain Relief) tabs nitrofurantoin 100 mg PO BID 5 days #10 caps 09/03/24 monohydrate/macrocrystals 100 mg capsule (Macrobid) albuterol sulfate 90 mcg/actuation 2 puff inhalation Q6H PRN 09/06/24 aerosol inhaler shortness of breath or wheezing 30 days #18 grams nicotine 14 mg/24 hr daily 1 patch transdermal DAILY 28 days 09/06/24 transdermal patch #28 ea prednisone 10 mg tablet 10 mg PO DAILY 30 days #30 tabs 09/06/24 omeprazole 40 mg capsule,delayed 40 mg PO DAILY #30 caps 09/25/24 release prednisone 20 mg tablet 40 mg (2 x 20 mg) PO DAILY 4 days 09/25/24 #8 tabs Allergies Allergy/AdvReac Type Severity Reaction Status Date / Time No Known Allergies (No Known Allergy Verified 09/25/24 15:07 Allergies*) Review of Systems Review of Systems Pertinent positives and negatives as stated in the [facility] Past Medical History Source: nursing notes reviewed Medical History Bladder mass Personal history of nicotine dependence Osteopenia Bladder cancer (~2019) Hypertension Diabetes mellitus Asthma-COPD overlap syndrome JIMBO (obstructive sleep apnea) Nicotine dependence, cigarettes, uncomplicated Bilateral anterior knee pain Surgical History History of transurethral resection of bladder tumor (TURBT) History of esophagogastroduodenoscopy (EGD) History of colonoscopy Social History Social History Household Members: None Housing: Apartment Are you a primary customer care consultant to a significant other at home: No Do you presently have visiting nurse or other home services: Yes ([employer]PER[employer] (daughter)) Patient Tobacco Use Status: Former Tobacco user Tobacco use type: Cigarette Cigarettes Per Day: 1 Years Smoked: (onset 15yr,s 1/2-1ppd x 50yrs, 35pyh, quit 2020) Use of substances other than those prescribed or required for medical reasons: No Advance Directives: No Advance Directives Information Provided: No service: No Current occupational status: retired and disabled 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 GENERAL: Well developed, well nourished, in no acute distress. HEAD: Normocephalic/atraumatic EYES: PERRLA, EOMI EARS: Ext canals without abnormality NOSE: Nares patent bilateral OROPHARYNX: no oral lesions noted, posterior pharynx clear and non-erythematous without noted tonsillar enlargement/erythema/exudates NECK: Supple, no adenopathy LUNGS: Tachypnea, wheezing SpO2<94> CARDIOVASCULAR: Regular rate and rhythm without noted murmurs, no JVD or lower extremity edema. ABDOMEN: Soft, extremely ttp, mild distended with bowel sounds. MUSCULOSKELETAL: No tenderness, deformities, or effusions noted on gross inspection. EXTREMITIES: No cyanosis, clubbing or edema. SKIN: Inspection of the skin reveals no rashes NEUROLOGIC: Alert and oriented x 3. Strength and sensation to light touch were grossly intact x 4. Vital Signs: Vital Signs - 24 hr 09/25/24 15:06 09/25/24 16:56 09/25/24 17:13 Temperature 98 F Pulse Rate 103 H 96 91 Respiratory Rate 18 18 20 Blood Pressure 136/60 120/65 Pulse Oximetry 94 95 Oxygen Delivery Method Room Air Room Air 09/25/24 18:00 Temperature 98.3 F Pulse Rate 94 Respiratory Rate 17 Blood Pressure 123/58 L Pulse Oximetry 96 Oxygen Delivery Method Room Air BMI result Body Mass Index 25.9 Course Course Course Narrative: This is an RME: Additional HPI, ROS, PE not included below will be deferred to primary provider. RME assessment and note performed by: Cheli Harris PA-C This is a 29-razd-gwz-female, with a hx of bladder cancer on chemotherapy, DM, HTN, asthma, COPD, JIMBO, who presents to the ER with complaints of abdominal pain, nausea, vomiting and diarrhea. No sick contacts. Does admit to SOB. No CP. Plan: Labs, Medical Decision Making Medical Decision Making MDM Narrative: 73-year-old female with history and clinical presentation, DD DX: Possibility of obstruction secondary to tumor load, possibility of perforation/pancreatitis/gastritis/gallbladder disease, there was a component suspicious for COPD exacerbation and patient started on ED bronch protocol. INTERVENTION: ED bronch protocol EKG as interpreted by me: Normal sinus rhythm, HR-97, no STEMI, AK/QRS/QTC/QTC is otherwise within normal limits. I reviewed and interpreted all investigations and there is no leukocytosis, there is a borderline stable anemia and no thrombocytopenia. VBG is not consistent with respiratory acidosis however there is hypercapnia of 63. There is no LUKE or potassium derangements, magnesium is low and repleted with 2 g of magnesium sulfate and no liver enzyme derangements. Lipase is within normal limits. Viral testing is negative for flu/RSV/COVID. My interpretation is in agreement with radiology's impression in that there is no evidence of infiltrate or venous congestion. 1802: On re-evaluation patient is breathing appears improved with easy respiration and decreased tachypnea. My interpretation is in agreement with radiology's impression in that there is no evidence of intra-abdominal pathology. Patient received a GI cocktail and on re-evaluation reports significant improvement, she is otherwise well appearing/nontoxic and is discharged home. Differential Diagnosis Differential Diagnoses: The differential diagnosis associated with the presentation includes see above Admission/Observation Consideration of admission/observation: Escalation of care including admission/observation considered see above Lab Data [facility] Lab Attestation statement: I reviewed the patient's lab results. see above 09/25/24 15:52 09/25/24 15:52 Labs: Lab Results 08/09/25 08/09/25 08/09/25 Range/Units 15:52 17:27 17:36 WBC 6.9 (4.8-10.8) X10*3/uL RBC 3.22 L (4.20-5.50) X10*6/uL Hgb 10.0 L (12.0-16.0) g/dl Hct 30.6 L (37.0-47.0) % MCV 95.0 (80.0-98.0) fL MCH 31.1 (27.0-33.0) pg MCHC 32.7 (31.0-35.0) g/dl RDW 13.2 (11.0-16.0) % Plt Count 297 (160-400) X10*3/uL MPV 8.9 L (9.4-12.3) fL Immature Gran % (Auto) 0.4 (0.0-0.4) % Neut % (Auto) 69.1 (45-73) % Lymph % (Auto) 22.4 (20-40) % [place] % (Auto) 6.1 (2-11) % Eos % (Auto) 1.7 (0-4) % Baso % (Auto) 0.3 (0-2) % Lymph # (Auto) 1.6 (1.2-4.9) X10*3/uL [place] # (Auto) 0.4 (0.1-1.2) X10*3/uL Eos # (Auto) 0.1 (0.0-0.4) X10*3/uL Baso # (Auto) 0.0 (0.0-0.2) X10*3/uL Abs Immat Gran (auto) 0.03 (0.00-0.03) X10*3/uL Absolute Neuts (auto) 4.8 (2.0-8.3) x10*3/uL Absolute Nucleated RBC 0.000 (0.0-0.012) X10*3/uL Nucleated RBC % (auto) 0.0 (0.0-0.2) /100WBC VBG pH 7.37 (7.32-7.43) VBG pCO2 63 mmHg VBG pO2 40 mmHg VBG HCO3 37 H (22-26) mmol/L VBG O2 Saturation 59.0 % VBG Base Excess 10.1 mmol/L Sodium 143 (135-145) mmol/L Potassium 3.4 D (3.3-5.1) mmol/L Chloride 104 (96-108) mmol/L Carbon Dioxide 30 H (22-29) mmol/L Anion Gap 12 (12-20) BUN 13 (9-16) mg/dL Creatinine 0.95 (0.5-1.4) mg/dL Estim Creat Clear Calc 42.2 Estimated GFR 58 Random Glucose 101 (60-115) mg/dL Lactic Acid 1.9 (0.5-2.0) mmol/L Calcium 9.0 D (8.4-10.2) mg/dL Magnesium 1.3 L* (1.6-2.6) mg/dL Total Bilirubin 0.1 (0.0-1.0) mg/dL Direct Bilirubin < 0.2 (0.0-0.5) mg/dL AST 18 (5-31) U/L ALT 14 (0-31) U/L Alkaline Phosphatase 54 (39-117) U/L B-Natriuretic Peptide 24 (<100) pg/mL Total Protein 6.2 L (6.5-8.0) g/dL Albumin 3.8 (3.5-5.0) g/dL Lipase 24 (8-78) U/L Influenza Type A (PCR) NEGATIVE (Negative) Influenza Type B (PCR) NEGATIVE (Negative) RSV RNA Qual (PCR) NEGATIVE (Negative) SARS-CoV-2 RNA (RT-PCR) NEGATIVE (Negative) Independent Interpretation I performed an independent interpretation of an: EKG, Plain X-Ray and CT Scan Radiology Impression Discussion of test interpretation with radiology: I have reviewed the radiologist's reading. Radiologist Impression: See above External Record Review External record reviewed: Prior outpatient labs Medications Administered Discontinued Medications Generic Name Dose Route Start Last Admin Trade Name Freq PRN Reason Stop Dose Admin Al Hydroxide/Mg Hydroxide 30 ml 09/25/24 19:15 09/25/24 19:26 Magnesium Hydrox/Alum Hydrox 30 Ml Oral.Susp PO 09/25/24 19:16 30 ml ONCE ONE Administration Albuterol Sulfate 2.5 mg/ 0 mg 09/25/24 17:07 09/25/24 17:11 Albuterol/Ipratropium 3 ml INHALE 09/25/24 17:08 1 dose ONCE ONE Administration Magnesium Sulfate 2 gm in 50 mls @ 150 mls/hr 09/25/24 16:40 09/25/24 17:37 Magnesium Sulfate/H2o IV 09/25/24 16:59 Infused ONCE ONE Infusion Iohexol 100 ml 09/25/24 18:21 09/25/24 18:21 Iohexol 350 Mg/Ml 100 Ml Infus..Btl IV 09/25/24 18:22 85 ml ONCE ONE Administration Lidocaine HCl 10 ml 09/25/24 19:15 09/25/24 19:26 Lidocaine Hcl Viscous 2 % 15 Ml Solution MUCOUS MEM 09/25/24 19:16 10 ml ONCE ONE Administration Discharge Plan Discharge Clinical Impression: Gastritis, COPD (chronic obstructive pulmonary disease) Patient Disposition: Home, Self-Care Instructions: Gastritis (ED), Diet for Stomach Ulcers and Gastritis (ED), COPD (Chronic Obstructive Pulmonary Disease) (ED) Additional Instructions: Complete the short course of steroids resume all home medications as prescribed. Please complete the course of steroids, you have also been started on an acid control medication. Recommend hldw-[id number]-[id number] Mylanta as needed prior to meals. Follow-up with your primary care doctor on Friday morning and do not hesitate to return to the emergency room for worsening symptoms. Prescriptions: New prednisone 20 mg tablet 40 mg PO DAILY 4 Days Qty: 8 0RF omeprazole 40 mg capsule,delayed release(DR/EC) 40 mg PO DAILY Qty: 30 0RF No Action albuterol sulfate 2.5 mg /3 mL (0.083 %) solution for nebulization 2.5 mg inhalation QID Qty: 180 0RF nitrofurantoin monohyd/m-cryst [Macrobid] 100 mg capsule 100 mg PO BID 5 Days Qty: 10 0RF Rx Instructions: must administer with a meal/food cyanocobalamin (vitamin B-12) 1,000 mcg tablet 1,000 mcg PO QPM doxycycline hyclate 100 mg capsule 100 mg PO BID Qty: 6 0RF mirabegron [Myrbetriq] 50 mg tablet extended release 24 hr 50 mg PO DAILY Qty: 30 0RF Azo Urinary Pain Relief 99.5 mg tablet 199 mg PO BID Qty: 40 0RF Rx Instructions: administer with meals breakfast and dinner linagliptin 5 mg tablet 5 mg PO DAILY cholecalciferol (vitamin D3) 50 mcg (2,000 unit) capsule 50 mcg PO DAILY aspirin 81 mg tablet,delayed release (DR/EC) 81 mg PO BEDTIME cetirizine 10 mg tablet 10 mg PO DAILY metformin 500 mg tablet 1,000 mg PO BEDTIME gabapentin 300 mg capsule 300 mg PO TID sertraline 100 mg tablet 150 mg PO DAILY buspirone 10 mg tablet 10 mg PO BID rosuvastatin 40 mg tablet 40 mg PO BEDTIME lisinopril-hydrochlorothiazide 20-12.5 mg tablet 1 tab PO DAILY Trelegy Ellipta 200-62.5-25 mcg blister with device 1 inh INHALATION DAILY Qty: 60 2RF ipratropium-albuterol 0.5 mg-3 mg(2.5 mg base)/3 mL solution for nebulization 3 ml inhalation QID 30 Days Qty: 360 11RF albuterol sulfate 90 mcg/actuation HFA aerosol inhaler 2 puff PO Q6H PRN (Reason: shortness of breath or wheezing) 30 Days Qty: 8.5 11RF nicotine 14 mg/24 hr patch 24 hour 1 patch transdermal DAILY 28 Days Qty: 28 3RF albuterol sulfate 90 mcg/actuation HFA aerosol inhaler 2 puff inhalation Q6H PRN (Reason: shortness of breath or wheezing) 30 Days Qty: 18 11RF prednisone 10 mg tablet 10 mg PO DAILY 30 Days Qty: 30 1RF (DME) nebulizers Misc See Rx Instructions .Route Rx Instructions: As directed montelukast [Singulair] 10 mg tablet 10 mg PO BEDTIME 90 Days Qty: 90 3RF roflumilast [Daliresp] 500 mcg tablet 500 mcg PO DAILY 30 Days Qty: 30 11RF calcium carbonate 500 mg calcium (1,250 mg) tablet 500 mg PO BID (DME) lancets [TRUEplus Lancets] 33 gauge misc See Rx Instructions .ROUTE .MEDSUPPLY Qty: 100 Rx Instructions: As directed Referrals: Flower High MD [Primary Care Provider, Internal Medicine] Print Language: Occitan
--- NOTE | 2024-09-25 15:23 | ECG_ITS ---
Test Reason : ABD PAIN Blood Pressure : */* mmHG Vent. Rate : 97 BPM Atrial Rate : 97 BPM P-R Int : 124 ms QRS Dur : 80 ms QT Int : 358 ms P-R-T Axes : 63 2 69 degrees QTcB Int : 454 ms Normal sinus rhythm Low voltage QRS Borderline ECG When compared with ECG of 15-Feb-2024 13:26, No significant change was found Referred By: Cheli Harris Electronically Signed By: GLENIS CARPENTER
[2024-09-25 15:59] LABS: MANUAL DIFF FLAG NO
[2024-09-25 16:02] LABS: Hematocrit 30.6 % (37.0-47.0); Hemoglobin 10.0 g/dl (12.0-16.0); Imm Gran Abs Auto 0.03 X10*3/uL (0.00-0.03); Imm Gran Pct Auto 0.4 % (0.0-0.4); Lymphocytes Absolute Auto 1.6 X10*3/uL (1.2-4.9); Mean Corpuscular HGB Conc 32.7 g/dl (31.0-35.0); Mean Corpuscular Hemoglobin 31.1 pg (27.0-33.0); Mean Corpuscular Volume 95.0 fL (80.0-98.0); NRBC Abs Auto 0.000 X10*3/uL (0.0-0.012); NRBC Pct Auto 0.0 /100WBC (0.0-0.2); Platelet Count 297 X10*3/uL (160-400); Red Blood Count 3.22 X10*6/uL (4.20-5.50); White Blood Count 6.9 X10*3/uL (4.8-10.8)
[2024-09-25 16:26] LABS: Magnesium 1.3 mg/dL (1.6-2.6)
[2024-09-25 16:27] LABS: Alanine Aminotransferase 14 U/L (0-31); Albumin Level 3.8 g/dL (3.5-5.0); Alkaline Phosphatase 54 U/L (39-117); Anion Gap 12 (12-20); Aspartate Amino Transferase 18 U/L (5-31); Blood Urea Nitrogen 13 mg/dL (9-16); Calcium 9.0 mg/dL (8.4-10.2); Carbon Dioxide 30 mmol/L (22-29); Chloride 104 mmol/L (96-108); Creatinine Clr Calc Pharmacy 42.2; Estimated Glomerular Filt Rate 58; Lipase 24 U/L (8-78); Potassium 3.4 mmol/L (3.3-5.1); Sodium 143 mmol/L (135-145); Total Protein 6.2 g/dL (6.5-8.0)
[2024-09-25 16:50] LABS: Resp Syncy Virus RNA Qual PCR NEGATIVE (Negative); SARS COV2 PCR INHOUSE NEGATIVE (Negative)
[2024-09-25 16:56] VITALS: BP 120/65; PULSE 96; RESP 18; O2SAT 95
[2024-09-25] MEDS: Magnesium Sulfate/H2O 2 GM/50 ML PIGGYBACK IV (16:57)
[2024-09-25] MEDS: Albuterol Sulfate 2.5 MG, Albuterol/Iprat 2.5/0.5MG 3 ML 3 ML INHALE (17:11)
[2024-09-25 17:13] VITALS: PULSE 91; RESP 20; O2SAT 96
[2024-09-25 17:40] LABS: Venous Blood Gas Refer to POC result
[2024-09-25 17:41] LABS: VBG HCO3 37 mmol/L (22-26); VBG O2 % Saturation 59.0 %
[2024-09-25 18:00] VITALS: BP 123/58; PULSE 94; RESP 17; TEMP 36.8; O2SAT 96
[2024-09-25 18:01] LABS: B Type Natriuretic Peptide 24 pg/mL (<100)
[2024-09-25] MEDS: iohexoL 350 MG/ML 100 ML INFUS..BTL IV (18:21)
[2024-09-25] MEDS: Magnesium Hydrox/Alum Hydrox 30 ML ORAL.SUSP PO (19:26)
[2024-09-25] MEDS: Lidocaine HCl Viscous 2 % 15 ML SOLUTION 10 ML MUCOUS MEM (19:26)
--- NOTE | 2024-09-25 19:30 | PC.NURSE ---
this RN assumed care of this pt @190, pt medicated per APR, pt resting in stretcher, in no apparent distress, no need made aware at this time
[2024-09-25 20:00] VITALS: BP 128/57; PULSE 87; RESP 22; TEMP 36.3; O2SAT 97
[2024-09-25 20:20] VITALS: BP 128/57; PULSE 87; RESP 22; TEMP 36.3; O2SAT 97
== END 2024-09-25 20:21 | disposition home or self-care (01) ==
PROVIDERS: Physician Assistant Medical; Emergency Provider Student in an Organized Health Care Education/Training Program; PCP Student in an Organized Health Care Education/Training Program
DX: K29.70 Gastritis, unspecified, without bleeding (principal); J44.9 Chronic obstructive pulmonary disease, unspecified; R11.2 Nausea with vomiting, unspecified; R05.9 Cough, unspecified; E11.9 Type 2 diabetes mellitus without complications; I10 Essential (primary) hypertension; E78.5 Hyperlipidemia, unspecified; C67.9 Malignant neoplasm of bladder, unspecified; Z92.21 Personal history of antineoplastic chemotherapy; Z87.891 Personal history of nicotine dependence; Z03.818 Encounter for observation for suspected exposure to other biological agents ruled out; Z79.84 Long term (current) use of oral hypoglycemic drugs; Z79.02 Long term (current) use of antithrombotics/antiplatelets; Z79.899 Other long term (current) drug therapy; Z79.82 Long term (current) use of aspirin
CPT/HCPCS: 36415; 71046; 74177; 80048; 80076; 82803; 83605; 83690; 83735; 83880; 85025; 87040; 87637; 93005; 94640; 99285; J3475; Q9967

== ENCOUNTER → 2024-09-25 15:23 | Outpatient (BNV) | payer OTHER, SELFPAY | PROVIDERS: Emergency Provider Student in an Organized Health Care Education/Training Program; PCP Student in an Organized Health Care Education/Training Program; Visit Provider Internal Medicine | DX: R10.9 Unspecified abdominal pain (principal) | CPT/HCPCS: 93010 ==

== ENCOUNTER → 2024-09-25 15:24 | Outpatient (BNV) | payer OTHER, SELFPAY | PROVIDERS: Emergency Provider Student in an Organized Health Care Education/Training Program; PCP Student in an Organized Health Care Education/Training Program; Visit Provider Radiology Diagnostic Radiology | DX: K57.30 Diverticulosis of large intestine without perforation or abscess without bleeding (principal); R06.02 Shortness of breath | CPT/HCPCS: 71046; 74177 ==

== ENCOUNTER 2024-10-26 10:47 | Outpatient (REF) | payer OTHER, SELFPAY ==
--- OUTSIDE RECORDS SUMMARY | 2024-10-26 09:45 | XMS_ITS | Encounter Summary ---
Author Organization [employer] Address [address] [place] [address] [address], [place] [address] Care Team Providers Care Floorwalker Name Role Phone Flower High MD Primary Care Pro vider Reason for Referral * Imaging (Routine) - Authorized Specialty Diagnoses / Procedures Referred By Contac t Referred To Contact Radiology Diagnoses Osteopenia, unspecified location Procedures BD DEXA Axial Flower High MD [address] [place] [address] Phone: tel: fax: [address] Phone: tel: fax: Referral ID Status Reason Start Date Expiration Date V isits Requested Visits Authorized [id number] Authorized 10/26/2024 10/26/2025 1 1 Encounter Details Date Type Department Care Team (Late st Contact Info) Description 10/26/2024 9:45 AM EDT Office Visit [facility] [address] [place] [phone] Flower High MD [address] [place] [address] [phone] Osteopenia, unspecified location (Primary Dx); Type 2 diabetes mellitus without complication, with long-term current use of insulin (CMS/HCC); Hypomagnesemia Social History Tobacco Use Types Packs/Day Years [...] your housing situation today? I have tomas dion 09/01/[address] you li [...] Sign Reading Time Taken Comments Blood Pressure 114/56 10/26/2024 9:56 AM EDT Pulse 93 10/26/2024 9:56 AM EDT Temperature 36.3 C (97.3 F) 10/26/2024 9:56 AM EDT Respiratory Rate 20 10/26/2024 9:56 AM EDT Oxygen Saturation 99% 10/26/2024 9:56 AM EDT Inhaled Oxygen Concentration - - Weight 59.2 kg (130 lb 9.6 oz) 10/26/2024 9:56 A M EDT Height 149.9 cm (4' 11 ) 10/26/2024 9:56 AM EDT Body Mass Index 26.38 10/26/2024 9:56 AM EDT documented in this encounter Plan of Treatment Upcoming Encounters Date Type Department Care Team (Late st Contact Info) Description 10/29/2024 3:00 PM EDT Office Visit [facility] [address] [place] [address] Salvador-Coyle, Gwen, DDS [address] [place] [address] Scheduled Orders Name Type Priority Associated Diagnoses Orde r Schedule BD DEXA Axial Imaging Routine Osteopenia, unspecified location Expected: 10/26/2024, Expires: 10/26/2025 documented as of this encounter Procedures Procedure Name Priority Date/Time Associated Diagnosis Comments MAGNESIUM Routine 10/26/2024 10:55 AM EDT Hypomagnesemia POCT GLYCATED HEMOGLOBIN, TOTAL Routine 10/26/2024 10:20 AM EDT Type 2 diabetes mellitus without complication, with long-term current use of insulin ([facility]) POCT GLUCOSE Routine 10/26/2024 10:19 AM EDT Type 2 diabetes mellitus without complication, with long-term current use of insulin ([facility]) documented in this encounter Results * (ABNORMAL) Magnesium (10/26/2024 10:55 AM EDT) Magnesium 1.5(L) 1.6 - 2.6 mg/dL [facility] Blood Venous blood specimen / Unknown 10/26/2024 10:55 AM EDT 10/26/2024 11:24 AM EDT us lFower Miranda MD LAB BLOOD ORDERAB LES Final Result [facility] [address] [place] [address] [phone] * (ABNORMAL) POCT Hgb A1c (10/26/2024 10:20 AM EDT) Hemoglobin A1C 7.1(A) 4.0 - 5.7 % QC Media Lot # [id number] Lot# Expiration Date 730, Blood 10/26/2024 10:2 0 AM EDT us Flower Miranda MD POINT OF CARE ALIRIO T ENTER/EDIT ORDERABLES Final Result * POCT Glucose (10/26/2024 10:19 AM EDT) Glucose Blood, POC 94 60 - 200 mg/dL QC Media Lot # [id number] Lot# Expiration Date ,708,164 Blood Capillary blood specimen / Unknown 10/26/2024 10:19 AM EDT Flower Miranda MD POINT OF CARE ALIRIO T ENTER/EDIT ORDERABLES Final Result documented in this encounter Visit Diagnoses Diagnosis Osteopenia, unspecified location- Primary Type 2 diabetes mellitus without complication, with long-term current use of insulin ([facility]) Hypomagnesemia Disorders of magnesium metabolism documented in this encounter Additional Health Concerns Assessment Noted Time PHQ-9 Depression Total Score: 0 09/02/19 25 2:30 PM EDT documented as of this encounter Care Teams Floorwalker Relationship Specialty Start Date End Date Flower High MD [address] [place] [address] PCP - General Internal Medicine 07/19/22 Altr[facility] 06/08/24 documented as of this encounter
[2024-10-26 11:24] LABS: MANUAL DIFF FLAG NO
[2024-10-26 11:32] LABS: Hematocrit 31.8 % (37.0-47.0); Hemoglobin 10.4 g/dl (12.0-16.0); Imm Gran Abs Auto 0.03 X10*3/uL (0.00-0.03); Imm Gran Pct Auto 0.4 % (0.0-0.4); Lymphocytes Absolute Auto 1.7 X10*3/uL (1.2-4.9); Mean Corpuscular HGB Conc 32.7 g/dl (31.0-35.0); Mean Corpuscular Hemoglobin 32.1 pg (27.0-33.0); Mean Corpuscular Volume 98.1 fL (80.0-98.0); NRBC Abs Auto 0.000 X10*3/uL (0.0-0.012); NRBC Pct Auto 0.0 /100WBC (0.0-0.2); Platelet Count 336 X10*3/uL (160-400); Red Blood Count 3.24 X10*6/uL (4.20-5.50); White Blood Count 8.0 X10*3/uL (4.8-10.8)
[2024-10-26 11:36] LABS: Appearance Urine Clear; Glucose Urine UA Negative (Negative); PH 7.0 (5.0-9.0); Specific Gravity - Urine 1.020 (1.005-1.025); UMIC TRIGGER UACC YES
[2024-10-26 11:44] LABS: Hemoglobin A1C 159.5713 umol/L; Total Hemoglobin (HGBA1C) 2828.0843 umol/L
[2024-10-26 11:58] LABS: Alanine Aminotransferase 18 U/L (0-31); Albumin Level 4.2 g/dL (3.5-5.0); Alkaline Phosphatase 56 U/L (39-117); Anion Gap 13 (12-20); Aspartate Amino Transferase 19 U/L (5-31); Blood Urea Nitrogen 14 mg/dL (9-16); Calcium 9.5 mg/dL (8.4-10.2); Carbon Dioxide 31 mmol/L (22-29); Chloride 100 mmol/L (96-108); Cholesterol 171 mg/dL (<200); Estimated Glomerular Filt Rate > 60; HDL Cholesterol 72 mg/dL (>40); Magnesium 1.5 mg/dL (1.6-2.6); Potassium 3.6 mmol/L (3.3-5.1); Sodium 140 mmol/L (135-145); Total Protein 6.5 g/dL (6.5-8.0); Triglycerides 206 mg/dL (<150)
[2024-10-26 12:20] LABS: Microalbum/Creatinine Ratio Ur 3.9 ug/mg cr (<30)
[2024-10-26 12:27] LABS: Folate 12.9 ng/mL (> or = 4.0); Vitamin B12 346 pg/mL (200-900)
--- OUTSIDE RECORDS SUMMARY | 2024-10-26 12:59 | XMS_ITS | Encounter Summary ---
Author Organization [employer] Address [address] [facility] 7 [place] [address] Care Team Providers Care Wire Spiral Binder Name Role Phone Flower High MD Primary Care Pro vider Reason for Visit * Reason Comments Med Refill Encounter Details Date Type Department Care Team ([facility] st Contact Info) Description 01/09/2023 Refill [facility] MEDICINE [address] [place] [address] Flower High MD [address] [place], [place] [phone] Type 2 diabetes mellitus without complication, unspecified whether longterm insulin use ([facility]) Social History Tobacco Use Types Packs/Day Years [...] Description 10/29/2024 3:00 PM EDT Office Visit [facility] ADULT DENTAL [address] [place] [address] Gwen Olmos DDS [address] [place] [address] documented as of this encounter Visit Diagnoses Diagnosis Type 2 diabetes mellitus without complication, unspecified whether predatory animal exterminator insulin use ([facility]) documented in this encounter Additional Health Concerns Assessment Noted Time PHQ-9 Depression Total Score: 0 01/07/20 23 1:19 PM EST documented as of this encounter Care Teams Wire Spiral Binder Relationship Specialty Start Date End Date Flower High MD [address] [place] [address] PCP - General Internal Medicine 07/19/22 Altrana[facility] 06/08/24 documented as of this encounter
--- OUTSIDE RECORDS SUMMARY | 2024-10-26 12:59 | XMS_ITS | Encounter Summary ---
Author Organization [employer] Address [address] [facility] 7t [place] [address] Care Team Providers Care Consulting Property Manager Name Role Phone Flower High MD Primary Care Pro vider Reason for Visit * Reason Comments Med Refill Encounter Details Date Type Department Care Team ([facility] st Contact Info) Description 05/30/2023 Refill [facility] MEDICINE [address] [place] [address] Flower High MD [address] [place] [address] Chronic midline low back pain without sciatica [...] Description 10/29/2024 3:00 PM EDT Office Visit [facility] ADULT DENTAL [address] [place] [address] Gwen Olmos DDS [address] [place] [address] documented as of this encounter Visit Diagnoses Diagnosis Chronic midline low back pain without sciatica documented in this encounter Additional Health Concerns Assessment Noted Time PHQ-9 Depression Total Score: 0 01/07/20 23 1:19 PM EST documented as of this encounter Care Teams Consulting Property Manager Relationship Specialty Start Date End Date Flower High MD [address] [place] [address] PCP - General Internal Medicine 07/19/22 Altr[facility] 06/08/24 documented as of this encounter
--- OUTSIDE RECORDS SUMMARY | 2024-10-26 12:59 | XMS_ITS | Encounter Summary ---
Author Organization [employer] Address [address] [facility] [address] [place] [address] Care Team Providers Care Fourth Grade Teacher Name Role Phone Flower High MD Primary Care Pro vider Encounter Details Date Type Department Care Team (Latest Contact Info) Description 10/26/2024 Travel Social History Tobacco Use Types Packs/Day [...] Description 10/29/2024 3:00 PM EDT Office Visit [facility] ADULT DENTAL [address] [place] [address] Gwen Olmos DDS [address] [place] [address] documented as of this encounter Visit Diagnoses Not on filedocumented in this encounter Additional Health Concerns Assessment Noted Time PHQ-9 Depression Total Score: 0 09/02/19 25 2:30 PM EDT documented as of this encounter Care Teams Fourth Grade Teacher Relationship Specialty Start Date End Date Flower High MD [address] [place] [address] PCP - General Internal Medicine 07/19/22 Altr[facility] 06/08/24 documented as of this encounter
--- OUTSIDE RECORDS SUMMARY | 2024-10-26 12:59 | XMS_ITS | Encounter Summary ---
Author Organization [employer] Address [address] [facility] [address] [place] [address] Care Team Providers Care Sex Crimes Detective Name Role Phone Flower High MD Primary Care Pro vider Reason for Visit * Reason Comments Med Refill Encounter Details Date Type Department Care Team ([facility] st Contact Info) Description 10/26/2024 Refill [facility] MEDICINE [address] [place] [address] Flower High MD [address] [place] [address] Chronic bilateral low back pain without sciatica Social History [...] Description 10/29/2024 3:00 PM EDT Office Visit [facility] ADULT DENTAL [address] [place] [address] Gwen Olmos DDS [address] [place] [address] documented as of this encounter Visit Diagnoses Diagnosis Chronic bilateral low back pain without sciatica documented in this encounter Additional Health Concerns Assessment Noted Time PHQ-9 Depression Total Score: 0 09/02/19 25 2:30 PM EDT documented as of this encounter Care Teams Sex Crimes Detective Relationship Specialty Start Date End Date Flower High MD [address] [place] [address] PCP - General Internal Medicine 07/19/22 Altr[facility] 06/08/24 documented as of this encounter
--- OUTSIDE RECORDS SUMMARY | 2024-10-26 12:59 | XMS_ITS | Encounter Summary ---
Author Organization [employer] Address [address] [facility] 7t [place] [address] Care Team Providers Care Tube Cutter Operator Name Role Phone Flower High MD Primary Care Pro vider Encounter Details Date Type Department Care Team (Late st Contact Info) Description 03/05/2023 Orders Only [facility] [address] [place] [address] Flower High MD [address] [place] [address] Social History Tobacco Use Types Packs/Day Years [...] Description 10/29/2024 3:00 PM EDT Office Visit [facility] ADULT DENTAL [address] [place] [address] Salvador-Gwen Coyle, DDS [address] [place] [address] documented as of this encounter Visit Diagnoses Not on filedocumented in this encounter Additional Health Concerns Assessment Noted Time PHQ-9 Depression Total Score: 0 01/07/20 23 1:19 PM EST documented as of this encounter Care Teams Tube Cutter Operator Relationship Specialty Start Date End Date Flower High MD [address] [place] [address] PCP - General Internal Medicine 07/19/22 Altr[facility] 06/08/24 documented as of this encounter
--- OUTSIDE RECORDS SUMMARY | 2024-10-26 12:59 | XMS_ITS | Encounter Summary ---
Author Organization [employer] Address [address] [place] [address] Care Team Providers Care Concrete Float Maker Name Role Phone Flower High MD Primary Care Pro vider Encounter Details Date Type Department Care Team (Late st Contact Info) Description 10/26/2024 Orders Only GENERIC EXTERNAL DATA DEPARTMENT Provider, [...] Description 10/29/2024 3:00 PM EDT Office Visit [facility] ADULT DENTAL [address] [place] [address] SalvadorGwen Guajardo, DDS [address] [place] [address] documented as of this encounter Procedures Procedure Name Priority Date/Time Associated Diagnosis Comments URINALYSIS, COMPLETE, WITH REFLEX TO CULTURE Routine 10/26/2024 10:55 AM EDT documented in this encounter Results * (ABNORMAL) Urinalysis, Complete, with Reflex to Culture (10/26/2024 10:55 AM EDT) Color Urine Yellow [facility] Appearance Urine Clear [facility] PH 7.0 5.0 - 9.0 [facility] Glucose Urine UA Negative Negative mg/dL [facility] Urine Blood Negative Negative [facility] Specific [place] - Urine 1.020 1.005 - 1.025 [facility] Urine Protein Negative Neg-Trace mg/dL [facility] Urine Ketones Negative Negative mg/dL [facility] Nitrite Urine Negative Negative [facility] Leukocyte Esterase Urine Trace(A) Negative [facility] RBC Urine 0-2 0 - 2 /HPF [facility] Urine WBC 0-5 0 - 5 /HPF [facility] Urine Squamous Epithelial Cell 6-10 0 - 2 /HPF [facility] Urine Bacteria Trace None Seen [facility] Hyaline Casts, Urine 0-2 0 - 2 /LPF [facility] 10/26/2024 10:5 5 AM EDT 10/26/2024 11:21 AM EDT Narrative [facility] - 10/26/2024 11:41 AM EDT Urine, Catheterized us Generic External Data Provider LAB URINE ORDERAB LES Final Result [facility] [address] [place] [phone] [phone] documented in this encounter Visit Diagnoses Not on filedocumented in this encounter Additional Health Concerns Assessment Noted Time PHQ-9 Depression Total Score: 0 09/02/19 25 2:30 PM EDT documented as of this encounter Care Teams Concrete Float Maker Relationship Specialty Start Date End Date Flower High MD [address] [place] [address] PCP - General Internal Medicine 07/19/22 Altranais 06/08/24 documented as of this encounter
--- OUTSIDE RECORDS SUMMARY | 2024-10-26 12:59 | XMS_ITS | Encounter Summary ---
Author Organization [employer] Address [address] [place] [address] Care Team Providers Care Java Scala Developer Name Role Phone Flower High MD Primary Care Pro vider Reason for Visit * Reason Onset Date Comments Med Refill No Show 09/17/2022 Encounter Details Date Type Department Care Team (Late st Contact Info) Description 09/17/[address] [facility] MEDICINE [address] [place] [address] Claudette Lorenzo, SLINGER SEQUINS [address] [place] [address] Allergic rhinitis, unspecified seasonality, unspecified trigger Social [...] Description 10/29/2024 3:00 PM EDT Office Visit [facility] ADULT DENTAL [address] [place] [address] Gwen Olmos, DDS [address] [place], [place] [phone] documented as of this encounter Visit Diagnoses Diagnosis Allergic rhinitis, unspecified seasonality, unspecified trigger documented in this encounter Care Teams Java Scala Developer Relationship Specialty Start Date End Date Flower High MD [address] [place] [address] PCP - General Internal Medicine 07/19/22 Altranais 06/08/24 documented as of this encounter
--- OUTSIDE RECORDS SUMMARY | 2024-10-26 12:59 | XMS_ITS | Encounter Summary ---
Author Organization [employer] Address [address] [place] [address] Care Team Providers Care Oracle Applications Analyst Name Role Phone Flower High MD Primary Care Pro vider Reason for Visit * Reason Comments Med Refill Encounter Details Date Type Department Care Team (Late st Contact Info) Description 04/07/2024 Refill [facility] [address] [place] [address] Meredith Srinivasan MD [address] [place], [place] [phone] Chronic midline low back pain without sciatica [...] Description 10/29/2024 3:00 PM EDT Office Visit [facility] ADULT DENTAL [address] [place] [address] Gwen Olmos DDS [address] [place] [address] documented as of this encounter Visit Diagnoses Diagnosis Chronic midline low back pain without sciatica documented in this encounter Additional Health Concerns Assessment Noted Time PHQ-9 Depression Total Score: 20 024 8:46 AM EDT documented as of this encounter Care Teams Oracle Applications Analyst Relationship Specialty Start Date End Date Flower High MD [address] [place] [address] PCP - General Internal Medicine 07/19/22 Altranais 06/08/24 documented as of this encounter
--- OUTSIDE RECORDS SUMMARY | 2024-10-26 12:59 | XMS_ITS | Encounter Summary ---
Author Organization [employer] Address [address] 7[address] [place] [address] Care Team Providers Care Biodiesel Product Manager Name Role Phone Flower High MD Primary Care Pro vider Encounter Details Date Type Department Care Team (Late st Contact Info) Description 05/20/2024 Orders Only [facility] [address] [place], [place] [phone] Flower High MD [address] [place], [place] [phone] Type 2 diabetes mellitus without complication, with long-term current use of insulin ([facility]) Social History Tobacco Use Types [...] Description 10/29/2024 3:00 PM EDT Office Visit [facility] ADULT DENTAL [address] [place] [address] Gwen Olmos DDS [address] [place] [address] documented as of this encounter Visit Diagnoses Diagnosis Type 2 diabetes mellitus without complication, with long-term current use of insulin ([facility]) documented in this encounter Additional Health Concerns Assessment Noted Time PHQ-9 Depression Total Score: 20 024 8:46 AM EDT documented as of this encounter Care Teams Biodiesel Product Manager Relationship Specialty Start Date End Date Flower High MD [address] [place] [address] PCP - General Internal Medicine 07/19/22 Altranais 06/08/24 documented as of this encounter
--- OUTSIDE RECORDS SUMMARY | 2024-10-26 12:59 | XMS_ITS | Encounter Summary ---
Author Organization [employer] Address [address] [facility] [address] [place] [address] Care Team Providers Care Gas Torch Solderer Name Role Phone Flower High MD Primary Care Pro vider Reason for Visit * Reason Onset Date Comments chart prerp 10/25/2024 Encounter Details Date Type Department Care Team ([facility] st Contact Info) Description 10/25/2024 Telephone [facility] MEDICINE [address] [place] [address] Flower High MD [address] [place], [place] [phone] chart prerp Social History Tobacco Use Types Packs/Day Years [...] encounter Miscellaneous Notes * Telephone Encounter - Mckayla López [place] - 10/25/2024 9:31 AM EDT Chart Prep Labs: done Images: done Referrals: appointment pending Cardiology note/Appt requested by DELISA Vaccines due: Covid and Flu Screenings: colonoscopy and foot exam Overdue care gaps: Not applicable documented in this encounter Plan of Treatment Upcoming Encounters Date Type Department Care Team (Late st Contact Info) Description 10/29/2024 3:00 PM EDT Office Visit [facility] ADULT DENTAL [address] [place] [address] Gwen Olmos DDS [address] [place] [address] documented as of this encounter Visit Diagnoses Not on filedocumented in this encounter Additional Health Concerns Assessment Noted Time PHQ-9 Depression Total Score: 0 09/02/19 25 2:30 PM EDT documented as of this encounter Care Teams Gas Torch Solderer Relationship Specialty Start Date End Date Flower High MD [address] [place] [address] PCP - General Internal Medicine 07/19/22 Altranais 06/08/24 documented as of this encounter
--- OUTSIDE RECORDS SUMMARY | 2024-10-26 13:00 | XMS_ITS | Encounter Summary ---
Author Organization [employer] Address [address] [place] [address] Care Team Providers Care Formation Testing Operator Name Role Phone Flower High MD Primary Care Pro vider Reason for Visit * Reason Comments Med Refill Encounter Details Date Type Department Care Team ([facility] st Contact Info) Description 09/27/2024 Refill [facility] MEDICINE [address] [place] [address] J Carlos Sin MD [address] [place] [address] Social History Tobacco Use Types Packs/Day Years [...] Description 10/29/2024 3:00 PM EDT Office Visit [facility] ADULT DENTAL [address] [place], [place] [phone] Gwen Olmos DDS [address] [place] [address] documented as of this encounter Visit Diagnoses Not on filedocumented in this encounter Additional Health Concerns Assessment Noted Time PHQ-9 Depression Total Score: 0 09/02/19 25 2:30 PM EDT documented as of this encounter Care Teams Formation Testing Operator Relationship Specialty Start Date End Date Flower High MD [address] [place] [address] PCP - General Internal Medicine 07/19/22 Altranais 06/08/24 documented as of this encounter
--- OUTSIDE RECORDS SUMMARY | 2024-10-26 13:00 | XMS_ITS | Encounter Summary ---
Author Organization [employer] Address [address] [facility] 7 [place] [address] Care Team Providers Care Folder Gluer Operator Name Role Phone Flower High MD Primary Care Pro vider Reason for Visit * Reason Comments Med Refill Encounter Details Date Type Department Care Team ([facility] st Contact Info) Description 10/21/2024 Refill [facility] MEDICINE [address] [place] [address] Flower High MD [address] [place], [place] [phone] Primary hypertension Social History Tobacco Use Types Packs/Day Years [...] Description 10/29/2024 3:00 PM EDT Office Visit [facility] ADULT DENTAL [address] [place], [place] [phone] Gwen Olmos DDS [address] [place] [address] documented as of this encounter Visit Diagnoses Diagnosis Primary hypertension Unspecified essential hypertension documented in this encounter Additional Health Concerns Assessment Noted Time PHQ-9 Depression Total Score: 0 09/02/19 25 2:30 PM EDT documented as of this encounter Care Teams Folder Gluer Operator Relationship Specialty Start Date End Date Flower High MD [address] [place], [place] [phone] PCP - General Internal Medicine 07/19/22 Altranais 06/08/24 documented as of this encounter
--- OUTSIDE RECORDS SUMMARY | 2024-10-26 13:00 | XMS_ITS | Encounter Summary ---
Author Organization [employer] Address [address] [address] Care Team Providers Care Oral And Maxillofacial Surgery Resident Name Role Phone Flower High MD Primary Care Pro vider Encounter Details Date Type Department Care Team (Latest Contact Info) Description 10/23/2024 Travel Social History Tobacco Use Types Packs/Day [...] 10/29/2024 3:00 PM EDT Office Visit [facility] ADULT DENTAL [address] [place] [address] Gwen Olmos DDS [address] [place] [address] documented as of this encounter Visit Diagnoses Not on filedocumented in this encounter Additional Health Concerns Assessment Noted Time PHQ-9 Depression Total Score: 0 09/02/19 25 2:30 PM EDT documented as of this encounter Care Teams Oral And Maxillofacial Surgery Resident Relationship Specialty Start Date End Date Flower High MD [address] [place] [address] PCP - General Internal Medicine 07/19/22 Altranais 06/08/24 documented as of this encounter
--- OUTSIDE RECORDS SUMMARY | 2024-10-26 13:00 | XMS_ITS | Encounter Summary ---
Author Organization [employer] Address [address] [facility] 7t [place] [address] Care Team Providers Care Supervisor Gelatin Plant Name Role Phone Flower High MD Primary Care Pro vider Encounter Details Date Type Department Care Team (Late st Contact Info) Description 09/27/2024 Results Follow-Up [facility] MEDICINE [address] [place] [address] Flower High MD [address] [place] [address] CT Abdomen Pelvis w/ Contrast Social History Tobacco Use Types Packs/Day Years [...] Encounter Note - Flower Miranda MD - 09/27/2024 3:56 PM EDT Labs done by outside provider documented in this encounter Plan of Treatment Upcoming Encounters Date Type Department Care Team (Late st Contact Info) Description 10/29/2024 3:00 PM EDT Office Visit [facility] ADULT DENTAL [address] [place] [address] Gwen Olmos, DDS [address] [place] [address] documented as of this encounter Visit Diagnoses Not on filedocumented in this encounter Additional Health Concerns Assessment Noted Time PHQ-9 Depression Total Score: 0 09/02/19 25 2:30 PM EDT documented as of this encounter Care Teams Supervisor Gelatin Plant Relationship Specialty Start Date End Date Flower High MD [address] [place] [address] PCP - General Internal Medicine 07/19/22 Altranais 06/08/24 documented as of this encounter
--- OUTSIDE RECORDS SUMMARY | 2024-10-26 13:00 | XMS_ITS | Encounter Summary ---
Author Organization [employer] Address [address] [facility] 7t [place] [address] Care Team Providers Care Director Call Name Role Phone Claudette Lorenzo Primary Care Provider [phone] Flower High MD Primary Care Pro vider Encounter Details Date Type Department Care Team (Late st Contact Info) Description 03/18/2022 Orders Only [facility] [address] [place] [address] Karlene Dow LPN Social History Tobacco Use [...] Description 10/29/2024 3:00 PM EDT Office Visit [facility] ADULT DENTAL [address] [place] [address] Gwen Olmos DDS [address] [place] [address] documented as of this encounter Visit Diagnoses Not on filedocumented in this encounter Care Teams Director Call Relationship Specialty Start Date End Date Claudette Lorenzo FNP [address] [place] [address] PCP - General Family Medicine 10/11/21 07/18/22 Flower High MD [address] [place] [address] PCP - General Internal Medicine 07/19/22 Hermannranais 06/08/24 documented as of this encounter
--- OUTSIDE RECORDS SUMMARY | 2024-10-26 13:00 | XMS_ITS | Encounter Summary ---
Author Organization [employer] Address [address] [facility] 7 [place] [address] Care Team Providers Care Electric Blanket Wirer Name Role Phone Flower High MD Primary Care Pro vider Reason for Visit * Reason Comments Med Refill Encounter Details Date Type Department Care Team ([facility] st Contact Info) Description 10/20/2024 Refill [facility] MEDICINE [address] [place] [address] Flower High MD [address] [place], [place] [phone] Routine health maintenance; Primary hypertension Social History Tobacco Use Types [...] Description 10/29/2024 3:00 PM EDT Office Visit [facility] ADULT DENTAL [address] [place] [address] Gwen Olmos DDS [address] [place] [address] documented as of this encounter Visit Diagnoses Diagnosis Routine health maintenance Unspecified examination Primary hypertension Unspecified essential hypertension documented in this encounter Additional Health Concerns Assessment Noted Time PHQ-9 Depression Total Score: 0 09/02/19 25 2:30 PM EDT documented as of this encounter Care Teams Electric Blanket Wirer Relationship Specialty Start Date End Date Flower High MD [address] [place] [address] PCP - General Internal Medicine 07/19/22 Altranais 06/08/24 documented as of this encounter
--- OUTSIDE RECORDS SUMMARY | 2024-10-26 13:00 | XMS_ITS | Encounter Summary ---
Author Organization [employer] Address [address] [facility] 7t [place] [address] Care Team Providers Care Sports Editor Name Role Phone Claudette Lorenzo Primary Care Provider [phone] Flower High MD Primary Care Pro vider Encounter Details Date Type Department Care Team (Late st Contact Info) Description 05/06/2022 Orders Only [facility] MED[facility]INE [address] [place] [address] Karlene Dow LPN Social History Tobacco Use [...] Description 10/29/2024 3:00 PM EDT Office Visit [facility] ADULT DENTAL [address] [place] [address] Gwen Olmos DDS [address] [place] [address] documented as of this encounter Visit Diagnoses Not on filedocumented in this encounter Care Teams Sports Editor Relationship Specialty Start Date End Date Claudette Lorenzo FNP [address] [place] [address] PCP - General Family Medicine 10/11/21 07/18/22 Flower High MD [address] [place] [address] PCP - General Internal Medicine 07/19/22 Hermannranais 06/08/24 documented as of this encounter
--- OUTSIDE RECORDS SUMMARY | 2024-10-26 13:00 | XMS_ITS | Clinical Summary ---
Author Organization [employer] Address [address] [facility] [address] [place] [address] Care Team Providers Care Ratoprinter Name Role Phone Flower High MD Primary Care Pro vider Allergies Active Allergy Reactions Criticality Noted Date Comments Tramadol 10/11/2020 Other reaction(s): GI Problems, Nightmares Medications busPIRone (Buspar) 10 MG tablet 023 Active sertraline (Zoloft) 100 MG tablet 023 Active LORazepam (Ativan) 0.5 MG tablet Take 1 tablet by mouth every 8 (eight) hours. By psychiatry 022 Active ketorolac (Acular) 0.5 % ophthalmic solution INSTILL 1 DROP INTO THE AFFECTED EYE(S) THREE TIMES DAILY DIRECTED. START 2 DAYS BEFORE SURGERY AND TAPER DIRECTED 023 Active albuterol 1.25 MG/3ML nebulizer solutionIndicati ons:COPD with acute exacerbation (CMS/HCC) Take 3 mL (1.25 mg) by nebulization every 6 (six) hours if needed for wheezing. 75 mL 3 024 Active Blood Glucose Monitoring Suppl (MoneyMenttor [place] Lite) w/Device kitIndications:T ype 2 diabetes mellitus without complication, with long-term current use of insulin (CMS/HCC) Use to test blood sugar bid dx dm 1 kit 024 Active montelukast (Singulair) 10 MG tablet TAKE 1 TABLET BY MOUTH EVERY EVENING 90 tablet 1 024 Active predniSONE (Deltasone) 10 MG tablet TAKE 2 TABLETS BY MOUTH ONCE DAILY FOR 7 DAYS, THEN TAKE 1 TABLET BY MOUTH ONCE DAILY FOR 7 DAYS 024 Active glucose blood (FreeStyle Precision Mikel Test) test stripIndications :Diabetes due to underlying condition w oth circulatory comp ([facility]) Test blood sugar q 8 hours 100 each 12 024 Active pen needle 32G x 4 mm miscIndications: Type 2 diabetes mellitus without complication, with long-term current use of insulin ([facility]) Use as instructed 30 each 12 024 Active Easy Touch Lancets 33G/Twist misc TEST BLOOD SUGAR 3 TIMES A DAY DIRECTED 100 each 11 024 Active Continuous Glucose Sharepoint Analyst (FreeStyle Erinn 3 [place]) deviceIndication s:Type 2 diabetes mellitus without complication, with long-term current use of insulin ([facility]) 1 each 3 times daily. As directed 1 each 024 Active Continuous Glucose Sensor (FreeStyle Erinn 3 Plus Sensor) miscIndications: Type 2 diabetes mellitus without complication, with long-term current use of insulin ([facility]) USE DIRECTED TO TEST BLOOD SUGAR, CHANGE EVERY 15 DAYS 15 DAYS 2 each 11 025 Active ipratropium-albu terol (Duo-Neb) 0.5-2.5 mg/3 mL nebulizer solution 025 Active albuterol (2.5 MG/3ML) 0.083% nebulizer solution Take 3 mL (2.5 mg) by nebulization every 6 (six) hours if needed for wheezing. 75 mL 3 025 Active FREESTYLE LITE test stripIndications :Type 2 diabetes mellitus without complication, with long-term current use of insulin ([facility]) TEST BLOOD SUGAR THREE TIMES DAILY DIRECTED 100 strip 11 025 Active Ventolin HFA 108 (90 Base) MCG/ACT inhaler Inhale 1-2 puffs every 4 (four) hours if needed for shortness of breath or wheezing. 18 g 2 025 Active Spacer/Aero-Hold ing Chambers (OptiChamber Dennise) misc 1 each every 4 (four) hours if needed (asthma). 1 each 04/04/2 025 Active Oyster Shell Calcium 500 MG tablet TAKE 1 TABLET BY MOUTH TWICE DAILY IN THE MORNING AND IN THE EVENING WITH MEALS 180 tablet 1 Active cholecalciferol (D3 Super Strength) 50 MCG (1999) capsule TAKE 1 CAPSULE BY MOUTH EVERY MORNING 90 capsule Active Alcohol Swabs (Alcohol Prep) 70 % pads USE DIRECTED TO TEST BLOOD SUGAR THREE TIMES DAILY DIRECTED 100 each 5 Active Aspirin Low Dose 81 MG EC tabletIndication s:Type 2 diabetes mellitus without complications (CMS/HCC) TAKE 1 TABLET BY MOUTH EVERY EVENING 90 tablet 1 Active cetirizine (ZyrTEC) 10 MG tablet TAKE 1 TABLET BY MOUTH EVERY MORNING 90 tablet Active acetaminophen (Tylenol 8 Hour) 650 MG ER tablet Take 1 tablet (650 mg) by mouth every 8 (eight) hours if needed for mild pain. Do not crush, chew, or split. 60 tablet 025 2025 Active Diclofenac Sodium 1 % gel Apply 2 g topically if needed in the morning, at noon, in the evening, and at bedtime (pain). 150 g 3 Active rosuvastatin (Crestor) 40 MG tablet TAKE 1 TABLET BY MOUTH AT BEDTIME 90 tablet Active budesonide (Pulmicort) 0.5 MG/2ML nebulizer solution INHALE 1 AMPULE USING A NEBULIZER TWICE DAILY Active insulin lispro (HumaLOG) 100 UNIT/ML injection SS ( CBG 150-200: 4u, 201-250: 6u, 251-300: 8u, 301-350: 10u 15 mL 2 Active naloxone (Narcan) 4 mg/0.1 mL nasal spray Administer 1 spray (4 mg) into affected nostril(s) if needed for opioid reversal. May repeat every 2-3 minutes if needed, alternating nostrils, until medical assistance becomes available. 2 each 025 2025 Active lidocaine (Lidoderm) 5 % patchIndications :Chronic bilateral low back pain without sciatica Apply 1 patch topically Once per day. Remove & discard patch within 12 hours or as directed by . 30 patch 2 Active gabapentin (Neurontin) 300 MG capsuleIndicatio ns:Chronic midline low back pain without sciatica TAKE 1 CAPSULE BY MOUTH THREE TIMES DAILY IN THE MORNING, EVENING, AND BEDTIME 90 capsule 1 Active Trelegy Ellipta 200-62.5-25 MCG/ACT aerosol powder Take 1 puff by mouth in the morning. 1 each 3 Active oxyCODONE (Roxicodone) 5 MG immediate release tabletIndication s:Chronic bilateral low back pain without sciatica TAKE 1 TABLET BY MOUTH EVERY TWELVE HOURS NEEDED FOR SEVERE PAIN 56 tablet 025 Active ezetimibe (Zetia) 10 MG tablet Take 1 tablet (10 mg) by mouth in the morning. 90 tablet 1 Active metFORMIN (Glucophage) 500 MG tablet TAKE 1 TABLET BY MOUTH EVERY MORNING and TAKE 2 TABLETS BY MOUTH EVERY DAY IN THE EVENING 270 tablet Active pantoprazole (ProtoNix) 40 MG EC tablet TAKE 1 TABLET BY MOUTH EVERY MORNING 90 tablet Active cyanocobalamin (Vitamin B-12) 1000 MCG tabletIndication s:Routine health maintenance TAKE 1 TABLET BY MOUTH EVERY EVENING 90 tablet 025 Active lisinopril-hydro CHLOROthiazide 20-12.5 MG tabletIndication s:Primary hypertension TAKE 1 TABLET BY MOUTH EVERY MORNING 90 tablet 025 Active Dulaglutide (Trulicity) 1.5 MG/0.5ML solution auto-injectorInd ications:Type 2 diabetes mellitus without complication, with long-term current use of insulin ([facility]) Inject 1.5 mg under the skin 1 (one) time per week. 0.5 mL 2 Active insulin glargine (Lantus) 100 UNIT/ML injectionIndicat ions:Type 2 diabetes mellitus without complication, with long-term current use of insulin ([facility]) Inject 22 Units under the skin at bedtime. 10 mL 2 025 2025 Active famotidine (Pepcid) 20 MG tablet Take 1 tablet (20 mg) by mouth if needed at bedtime for heartburn. 90 tablet 025 2025 Active ezetimibe (Zetia) 10 MG tablet TAKE 1 TABLET BY MOUTH EVERY MORNING 90 tablet 1 025 2024 Discontinued(R eorder (will not trigger notification to Pharmacy)) metFORMIN (Glucophage) 500 MG tablet TAKE 1 TABLET BY MOUTH EVERY MORNING and TAKE 2 TABLETS BY MOUTH EVERY DAY IN THE EVENING 270 tablet 025 2024 Discontinued cyanocobalamin (Vitamin B-12) 1000 MCG tabletIndication s:Routine health maintenance TAKE 1 TABLET BY MOUTH EVERY EVENING 90 tablet 025 2024 Discontinued lisinopril-hydro CHLOROthiazide 20-12.5 MG tabletIndication s:Primary hypertension TAKE 1 TABLET BY MOUTH EVERY MORNING 90 tablet 025 2024 Discontinued(R eorder (will not trigger notification to Pharmacy)) pantoprazole (ProtoNix) 40 MG EC tablet TAKE 1 TABLET BY MOUTH EVERY MORNING 90 tablet 025 2024 Discontinued oxyCODONE (Oxaydo) 5 MG immediate release tabletIndication s:Chronic bilateral low back pain without sciatica Take 1 tablet (5 mg) by mouth every 12 (twelve) hours if needed for severe pain for up to 28 days. 56 tablet 025 2024 Discontinued Dulaglutide (Trulicity) 0.75 MG/0.5ML solution auto-injectorInd ications:Type 2 diabetes mellitus without complication, with long-term current use of insulin ([facility]) Inject 0.75 mg under the skin 1 (one) time per week. 0.5 mL 2 025 2024 Discontinued(O ther) insulin glargine (Lantus) 100 UNIT/ML injection Inject 25 Units under the skin at bedtime. 10 mL 2 025 2024 Discontinued(R eorder (will not trigger notification to Pharmacy)) Active Problems Problem Noted Date Diagnosed Date Fatigue 09/03/2024 Chest pain 09/03/2024 Lower back pain 09/03/2024 Former smoker 04/02/2024 Overview (04/02/2024): LDCT LUNG [...] -Will monitor CBC today and refer to skid wrapper at next apt (anemia) Abnormal uterine bleeding 11/13/2022 Assessment & Plan (11/13/2022 7:01 AM EDT): Pt was seen at the [facility] last mo for AUB. Already referred by provider to data warehouse manager. Not gone yet. gave today information to [...] apt. -colonoscopy:Per pt done in 2020 at [facility]-- ---- requested today record to Abiola Menendez [...] 11/2022 -colonoscopy:Per pt done in 2020 at [facility]-- ---- requested today record to Abiola Menendez [...] of bladder ca-thinks saw last oncologist at [facility] like 5 y ago -unsure if needed [...] of bladder ca-thinks saw last oncologist at [facility] like 5 y ago -unsure if needed [...] -continue care w psychiatrist and PT-seems f [facility] clinic in this building -psych meds refilled by specialist Assessment & Plan (08/19/2022 5:41 PM EDT): Pt w hx of depression/anxiety and panic attacks Denies SI -continue care w psychiatrist and PT-seems [facility] clinic in this building -psych [...] -ophthalmology 10/2022 - mild non-proliferative diabetic retinopathy. 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/2023 -Safety Sitter: will refer at next apt Allergic rhinitis [...] Asthma/COPD Overlap syndrome Pt is following w nutrition counselor -Dr Morales -last note obtained on 02/2022 [...] med -advised pt to f w her nutrition counselor and I printed at last apt CT chest done in 2019 with abnormal findings -not mentioned in last pulm visit note from 02/2022 -pt will f w specialist about need to repeat image if not done before Assessment & Plan (08/19/2022 6:08 PM EDT): Asthma/COPD Overlap syndrome Pt is following w nutrition counselor -Dr Morales -last note obtained on 02/2022 [...] ED -advised pt to f w her nutrition counselor and I printed today CT chest done [...] mild JIMBO per pulm note -f w nutrition counselor who referred back x sleep studies -pd to have test done -DELISA Luu gave info to pt to call to reschedule apt Assessment & Plan (08/19/2022 5:30 PM EDT): Pt has JIMBO-uses CPAP at night sleep study in 2018 : mild JIMBO per pulm note -f w nutrition counselor who referred back x sleep studies -pd [...] Encounters Date Type Department Care Team Description 10/26/2024 9:45 AM EDT Office Visit [facility] [address] [place] [address] Flower High MD Osteopenia, unspecified location (Primary Dx); Type 2 diabetes mellitus without complication, with long-term current use of insulin ([facility]); Hypomagnesemia 10/26/2024 Orders Only GENERIC EXTERNAL DATA DEPARTMENT Provider, Generic External Data 10/26/2024 Refill [facility] [address] [place] [address] Flower High MD Chronic bilateral low back pain without sciatica 10/26/2024 Travel 10/25/2024 Telephone [facility] [address] [place] [address] Flower High MD chart prerp 10/23/2024 Travel 10/21/2024 Refill [facility] [address] [place] [address] Flower High MD Primary hypertension 10/20/2024 Telephone [facility] [address] [place] [address] Flower High MD Durable Medical Equipment 10/20/2024 Refill [facility] [address] [place] [address] Flower High MD Routine health maintenance; Primary hypertension 09/28/2024 Telephone [facility] [address] [place], [place] [phone] Cori Dave, LAZARO 09/27/2024 Results Follow-Up [facility] [address] [place] [address] Abdomen Pelvis w/ Contrast 09/27/2024 Refill [facility] [address] [place] [address] Flower High MD 09/27/2024 Refill [facility] [address] [place] [address] J Carlos Sin MD 09/25/2024 Orders Only [facility] External Provider, [facility] 09/22/2024 Refill [facility] [address] [place] [address] Flower High MD Chronic bilateral low back pain without sciatica 09/19/2024 Refill [facility] [address] [place] [address] Arnel Lawrence MD 09/19/2024 Refill [facility] [address] [place] [address] Flower High MD Chronic midline low back pain without sciatica 09/14/2024 Telephone [facility] [address] [place] [phone] Flower High MD 09/13/2024 Telephone [facility] [address] [place] [phone] Flower High MD Letter Request (I called Vicky, the patient's daughter, regarding her request for a letter for her employer. She stated that she has FMLA, to care for the patient on an intermittent basis, but now needs to be out continuously, due to the patient's medical condition. She stated that the patient is undergoing chemotherapy, and will need 24/7 care until she is done with the treatment. I asked if she was given new FMLA paperwork, and she stated that she was asked to provide a letter instead.) 09/08/2024 Telephone [facility] [address] [place] [address] Flower High MD Denial 09/06/2024 Telephone [facility] [address] [place] [phone] Flower High MD 09/01/2024 2:15 PM EDT Office Visit [address] [address] Flower High MD Chronic bilateral low back pain without sciatica (Primary Dx); Type 2 diabetes mellitus without complication, with long-term current use of insulin ([facility]); Eosinophilia, unspecified type; Chest pain, unspecified type; Dietary counseling; Exercise counseling; Hypertension, unspecified type; Mixed hyperlipidemia; Diabetes due to underlying condition w oth circulatory comp ([facility]); Health care maintenance; Bladder CA in situ; Neoplastic malignant related fatigue; Difficulty breathing 09/01/2024 Telephone [facility] [address] [place] [address] Flower High MD Durable Medical Equipment 09/01/2024 Travel 08/31/2024 Telephone [facility] [address] [place] [address] Flower High MD CHART PREP 08/25/2024 Refill [facility] [address] [place] [address] Carli Sanabria ANP 08/16/2024 9:40 AM EDT Office Visit [facility] [address] [place] [address] Frida Smith DO Chronic bilateral low back pain without sciatica (Primary Dx); Paresthesia of both lower extremities 08/16/2024 Travel 08/04/2024 Refill [facility] [address] [place] [address] Flower High MD 07/29/2024 Refill [facility] [address] [place] [address] Flower High MD Chronic midline low back pain without sciatica 07/29/2024 Refill [facility] [address] [place] [address] Carli Sanabria ANP Type 2 diabetes mellitus without complication, unspecified whether alf insulin use ([facility]); Routine health maintenance; Primary hypertension; Chronic midline low back pain without sciatica 07/28/2024 Refill [facility] [address] [place], [place] [phone] Jim Bee MD Type 2 diabetes mellitus without complications ([facility]) from Last 3 Months Immunizations Immunization Administration Dates Next Due Hep A, Adult [...] the past 12 months, has t he [employer], gas, oil or water company threatened to [...] Mass Index 26.38 10/26/2024 9:56 AM EDT Plan of Treatment Upcoming Encounters Date Type Department Care Team (Late st Contact Info) Description 10/29/2024 3:00 PM EDT Office Visit [facility] ADULT DENTAL [address] [place] [address] Gwen Olmos DDS [address] [place], [place] [phone] Health Maintenance Due Date Last Done Comments CT Colonography 1952 Dental Prophylaxis 1952 FIT DNA/Cologuard 1952 FIT 1952 FOBT 1950 Sigmoidoscopy 1952 Dental X-Ray: Bitewings 03/30/2010 03/29/2009 Colonoscopy 06/16/2022 06/16/2012 Colorectal Cancer Screening 06/16/2022 Dental Oral Exam 10/17/2023 04/17/2023, , 07/03/2016 Diabetes: Foot Exam 09/28/2024 09/29/2023 COVID-19 Vaccine ( season) 2024 12/16/2023, 04/14/2023, 06/17/2022, Additional history exists Influenza Vaccine (#1) 2024 , 11/11/2022, 11/05/2018, Additional history exists Diabetes: Hemoglobin A1C 01/25/2025 025, 10/26/2024, 09/01/2024, Additional history exists Diabetes: Urine Protein Screening 05/20/2025 10/26/2024, 05/20/2024, 05/10/2024, Additional history exists Alcohol/Substance Use Screening 09/01/2025 09/01/2024 Depression Screening 09/01/2025 09/01/2024, 09/02/19 25 SDOH Screening 09/01/2025 09/01/2024 Lipid Panel 10/26/2025 10/26/2024, 04/18, 01/06/2024, Additional history exists Tobacco Screening 10/26/2025 10/26/2024 Mammogram 12/24/2025 12/25/2023, 11/17, 12/05/2022, Additional history exists Dental X-Ray: Full Mouth 04/17/2026 024, 07/03/2016, 03/29/2009 Eye Exam 04/26/2026 04/26/2024, 04/17, 04/26/2024, Additional history exists DTaP/Tdap/Td Vaccines (3 - Td or Tdap) 03/14/2031 03/14/2021, 12/10/2011 Zoster Vaccines Completed 09/02/2019, 03/21, 02/03/2015 Hepatitis A Vaccines Completed 09/14/2019, 05/05/2019, 02/09/2013, Additional history exists Hepatitis B Vaccines Completed 09/14/2019, 05/05/2019, 11/23/2008, Additional history exists RSV Patients and Patients Aged 60 years or older Completed 04/15/2023 Pneumococcal Vaccine: 50+ Years Completed 07/17/2023, 03/24/2018, 02/20/2016, Additional history exists Hepatitis C Screening Completed 01/06/2024, 022 HIB Vaccines Aged Out No longer eligi ble based on patient's age to complete this topic HPV Vaccines Aged Out No longer eligi ble based on patient's age to complete this topic IPV Vaccines Aged Out No longer eligi ble based on patient's age to complete this topic Meningococcal B Vaccine Aged Out No l onger eligible based on patient's age to complete [...] TO CULTURE Routine 10/26/2024 10:55 AM EDT MAGNESIUM Routine 10/26/2024 10:55 AM EDT Hypomagnesemia CBC WITH AUTO DIFFERENTIAL Routine 10/26/2024 10:55 AM EDT Eosinophilia, unspecified type VITAMIN B12/FOLATE, SERUM PANEL Routine 10/26/2024 10:55 AM EDT Type 2 diabetes mellitus without complication, with long-term current use of insulin ([facility]) LIPID PANEL, STANDARD Routine 10/26/2024 10:55 AM EDT Type 2 diabetes mellitus without complication, with long-term current use of insulin ([facility]) HEMOGLOBIN A1C Routine 10/26/2024 10:55 AM EDT Type 2 diabetes mellitus without complication, with long-term current use of insulin ([facility]) COMPREHENSIVE METABOLIC PANEL Routine 10/26/2024 10:55 AM EDT Type 2 diabetes mellitus without complication, with long-term current use of insulin ([facility]) ALBUMIN, RANDOM URINE W/CREATININE Routine 10/26/2024 10:55 AM EDT Type 2 diabetes mellitus without complication, with long-term current use of insulin ([facility]) POCT GLYCATED HEMOGLOBIN, TOTAL Routine 10/26/2024 10:20 AM EDT Type 2 diabetes mellitus without complication, with long-term current use of insulin ([facility]) POCT GLUCOSE Routine 10/26/2024 10:19 AM EDT Type 2 diabetes mellitus without complication, with long-term current use of insulin ([facility]) CT ABDOMEN PELVIS W CONTRAST Routine 09/25/2024 7:01 PM EDT VENOUS BLOOD GAS Routine 09/25/2024 5:36 PM EDT B TYPE NATRIURETIC PEPTIDE (BNP) Routine 09/25/2024 5:27 PM EDT LACTIC ACID Routine 09/25/2024 5:27 PM EDT BLOOD CULTURE (SECOND) Routine 5:27 PM EDT BLOOD CULTURE (FIRST) Routine 09/25/2024 5:27 PM EDT XR CHEST 2 VIEWS Routine 09/25/2024 4:01 PM EDT LIPASE Routine 09/25/2024 3:52 PM EDT MAGNESIUM Routine 09/25/2024 3:52 PM EDT BASIC METABOLIC PANEL Routine 09/25/2024 3:52 PM EDT HEPATIC FUNCTION PANEL Routine 3:52 PM EDT CBC WITH AUTO DIFFERENTIAL Routine 09/25/2024 3:52 PM EDT SARS COV2/INFLUENZA A/B AND RSV RNA QL NAAT Routine 09/25/2024 3:52 PM EDT ECG 12-LEAD Routine 09/01/2024 3:34 PM EDT Chest pain, unspecified type POCT GLYCATED HEMOGLOBIN, TOTAL Routine 09/01/2024 2:31 PM EDT Type 2 diabetes mellitus without complication, with long-term current use of insulin (CMS/HCC) POCT GLUCOSE Routine 09/01/2024 2:30 PM EDT Type 2 diabetes mellitus without complication, with long-term current use of insulin (CMS/HCC) XR THORACIC SPINE 2 VIEWS STAT 08/16/2024 10:15 AM EDT Chronic bilateral low back pain without sciatica XR LUMBAR SPINE 2-3 VIEWS STAT 08/16/2024 10:14 AM EDT Chronic bilateral low back pain without sciatica HEPATITIS C AB W/REFL TO HCV RNA, [...] Recently Relevant to Health Maintenance Results * Vitamin B12 (Cobalamin) and Folate Panel, Serum (10/26/2024 10:55 AM EDT) Vitamin B12 346 200 - 900 pg/mL [facility] Comment:NORMAL 200-900 PG/ML INDETERMINATE 160-199 PG/ML DEFICIENT < 160 PG/ML Folate 12.9 > or = 4.0 ng/mL [facility] Comment:Reference Values:> o r = 4.0 ng/mL< 4.0 ng/mL suggests folate deficiency Methotrexate, aminopterin and folinic acid(leucovorin) are chemotherapeutic agents whose molecularstructures are similar to folate; therefore, the Architectfolate assay cannot be used for patients using these drugs. Blood 10/26/2024 10:5 5 AM EDT 10/26/2024 11:24 AM EDT us Flower Miranda MD LAB BLOOD ORDERAB LES Final Result [facility] [address] [place] [phone] * (ABNORMAL) Urinalysis, Complete, with Reflex to Culture (10/26/2024 10:55 AM EDT) Color Urine Yellow [facility] Appearance Urine Clear [facility] PH 7.0 5.0 - 9.0 [facility] Glucose Urine UA Negative Negative mg/dL [facility] Urine Blood Negative Negative [facility] Specific [place] - Urine 1.020 1.005 - 1.025 [facility] Urine Protein Negative Neg-Trace mg/dL [facility] Urine Ketones Negative Negative mg/dL [facility] Nitrite Urine Negative Negative [facility] Leukocyte Esterase Urine Trace(A) Negative [facility] RBC Urine 0-2 0 - 2 /HPF [facility] Urine WBC 0-5 0 - 5 /HPF [facility] Urine Squamous Epithelial Cell 6-10 0 - 2 /HPF [facility] Urine Bacteria Trace None Seen [facility] Hyaline Casts, Urine 0-2 0 - 2 /LPF [facility] 10/26/2024 10:5 5 AM EDT 10/26/2024 11:21 AM EDT Narrative [facility] - 10/26/2024 11:41 AM EDT Urine, Catheterized us Generic External Data Provider LAB URINE ORDERAB LES Final Result Performing Organization Address [facility]/ZIP Co de Phone Number [facility] [address] [place] [phone] * Albumin, Random Urine W/Creatinine (10/26/2024 10:55 AM EDT) Creatinine, Urine 150.76 mg/dL [facility] Microalbumin Urine 6.0 mg/L [facility] Microalbum Creatinine Ratio Ur 3.9 <30 ug/mg cr [facility] Comment:Albumin/Creatinine R atio Reference Ranges: Normal: < 30 ug/mg creatinine Microalbuminuria: 30 - 300 ug/mg creatinineClinical Albuminuria: > 300 ug/mg creatinine Urine (Urine, Random) 10/26/2024 10:55 AM EDT 10/26/2024 11:21 AM EDT us Flower Miranda MD LAB URINE ORDERAB LES Final Result Performing Organization Address [facility]/ZIP Co de Phone Number [facility] [address] [place] [phone] * (ABNORMAL) CBC auto differential (10/26/2024 10:55 AM EDT) Only the most recent of2 resultswithin the time period is included. White Blood Count 8.0 4.8 - 10.8 X10*3/uL [facility] Red Blood Count 3.24(L) 4.20 - 5.50 X10*6/uL [facility] Hemoglobin 10.4(L) 12.0 - 16.0 g/dl [facility] Hematocrit 31.8(L) 37.0 - 47.0 % [facility] Mean Corpuscular Volume 98.1(H) 80.0 - 98.0 fL [facility] Mean Corpuscular Hemoglobin 32.1 27.0 - 33.0 pg [facility] Mean Corpuscular HGB Conc 32.7 31.0 - 35.0 g/dl [facility] Red Cell Distribution Width 14.1 11.0 - 16.0 % [facility] Platelet Count 336 160 - 400 X10*3/uL [facility] Mean Platelet Volume 9.1(L) 9.4 - 12.3 fL [facility] Neutrophils Percent Auto 66.5 45 - 73 % [facility] Imm Gran Pct Auto 0.4 0.0 - 0.4 % [facility] Lymphocytes Percent Auto 21.9 20 - 40 % [facility] Monocytes Percent Auto 6.8 2 - 11 % [facility] Eosinophils Percent Auto 4.1(H) 0 - 4 % [facility] Basophils Percent Auto 0.3 0 - 2 % [facility] NRBC Pct Auto 0.0 0.0 - 0.2 /100WBC [facility] Neutrophils Absolute Auto 5.3 2.0 - 8.3 x10*3/uL [facility] Imm Gran Abs Auto 0.03 0.00 - 0.03 X10*3/uL [facility] Lymphocytes Absolute Auto 1.7 1.2 - 4.9 X10*3/uL [facility] Monocytes Absolute Auto 0.5 0.1 - 1.2 X10*3/uL [facility] Eosinophils Absolute Auto 0.3 0.0 - 0.4 X10*3/uL [facility] Basophils Absolute Auto 0.0 0.0 - 0.2 X10*3/uL [facility] NRBC Abs Auto 0.000 0.0 - 0.012 X10*3/uL [facility] Blood Venous blood specimen / Unknown 10/26/2024 10:55 AM EDT 10/26/2024 11:23 AM EDT us Flower Miranda MD LAB BLOOD ORDERAB LES Final Result Performing Organization Address City/[facility]/ZIP Co de Phone Number [facility] [address] [place] [phone] * (ABNORMAL) Magnesium (10/26/2024 10:55 AM EDT) Only the most recent of2 resultswithin the time period is included. Magnesium 1.5(L) 1.6 - 2.6 mg/dL [facility] Blood Venous blood specimen / Unknown 10/26/2024 10:55 AM EDT 10/26/2024 11:24 AM EDT us Flower Miranda MD LAB BLOOD ORDERAB LES Final Result Performing Organization Address [facility] Co de Phone Number [facility] [address] [place] [phone] * (ABNORMAL) Hemoglobin A1c (10/26/2024 10:55 AM EDT) Hemoglobin A1c 7.3(H) <6.0 % [facility] Comment:Hemoglobin A1C Refer ence Range Adults: 4.8 - 6.0 % Non diabetic: < 6.0 % Goal: < 7.0 %Additional Action Suggested: > 8.0 %Note: Hemoglobin A1c results are invalid for patients with abnormal amounts of HbF. Blood transfusions may impact the HbA1c concentration in the patient sample. Estimated Average Glucose 163 mg/dL [facility] Comment:eAG = Estimated ave rage glucose which is %A1C expressed asaverage glucose, using the formula of the [id number] Glucose study (ADAG), Diabetes Care, Vol.31,#8,Sep. 2007 Blood Venous blood specimen / Unknown 10/26/2024 10:55 AM EDT 10/26/2024 11:23 AM EDT us Flower Miranda MD LAB BLOOD ORDERAB LES Final Result Performing Organization Address City/[facility]/ZIP Co de Phone Number [facility] [address] [place] [phone] * (ABNORMAL) Lipid Panel, Standard (10/26/2024 10:55 AM EDT) Triglycerides 206(H) <150 mg/dL [facility] Comment:Desirable Triglyceri de: less than 150 mg/dLBorderline High Triglyceride 150-199 mg/dLHigh Triglyceride: 200-499 mg/dLVery High Triglyceride: greater than or equal to 5OO mg/dL Cholesterol 171 <200 mg/dL [facility] Comment:Desirable Cholestero l: less than 200 mg/dLBorderline High Cholesterol: 200-239 mg/dLHigh Cholesterol: greater than 239 mg/dL LDL Cholesterol Calculated 58 <100 mg/dL [facility] Comment:Desirable LDL: less than 100 mg/dLNear Optimal/Above Optimal LDL: 110- 129 mg/dLBorderline High LDL: 130-159 mg/dLHigh LDL: 160-189 mg/dLVery High LDL: greater than or equal to 190 mg/dL HDL Cholesterol 72 >40 mg/dL [facility] Comment:Desirable HDL: great er than 40 mg/dL Note: This HDL assay may give artificially low results in patients with liver disease. Blood Venous blood specimen / Unknown 10/26/2024 10:55 AM EDT 10/26/2024 11:24 AM EDT us Flower Miranda MD LAB BLOOD ORDERAB LES Final Result Performing Organization Address City/[facility]/ZIP Co de Phone Number [facility] [address] [place] [phone] * (ABNORMAL) Comprehensive Metabolic Panel (10/26/2024 10:55 AM EDT) Sodium 140 135 - 145 mmol/L [facility] Potassium 3.6 3.3 - 5.1 mmol/L [facility] Chloride 100 96 - 108 mmol/L [facility] Carbon Dioxide 31(H) 22 - 29 mmol/L [facility] Anion Gap 13 12 - 20 [facility] Urea Nitrogen (BUN) 14 9 - 16 mg/dL [facility] Creatinine, Serum 0.88 0.5 - 1.4 mg/dL [facility] Estimated Glomerular Filt Rate >60 [facility] Comment:Chronic Kidney Disea se: Estimated GFR < 60 mL/min/1.55f5Xyntqn Kidney Disease: Estimated GFR < 15 mL/min/1.73m2 Glucose 109 60 - 115 mg/dL [facility] Calcium 9.5 8.4 - 10.2 mg/dL [facility] Bilirubin, Total 0.3 0.0 - 1.0 mg/dL [facility] Aspartate Amino Transferase 19 5 - 31 U/L [facility] Alanine Aminotransferase 18 0 - 31 U/L [facility] Total Protein 6.5 6.5 - 8.0 g/dL [facility] Albumin Level 4.2 3.5 - 5.0 g/dL [facility] Alkaline Phosphatase 56 39 - 117 U/L [facility] Blood Venous blood specimen / Unknown 10/26/2024 10:55 AM EDT 10/26/2024 11:24 AM EDT us Flower Miranda MD LAB BLOOD ORDERAB LES Final Result [facility] [address] [place] [phone] * (ABNORMAL) POCT Hgb A1c (10/26/2024 10:20 AM EDT) Only the most recent of2 resultswithin the time period is included. Hemoglobin A1C 7.1(A) 4.0 - 5.7 % QC Media Lot # ,[id number], Lot# Expiration Date 4,490, Blood 10/26/2024 10:2 0 AM EDT Flower Miranda MD POINT OF CARE ALIRIO T ENTER/EDIT ORDERABLES Final Result * POCT Glucose (10/26/2024 10:19 AM EDT) Only the most recent of2 resultswithin the time period is included. Glucose Blood, POC 94 60 - 200 mg/dL QC Media Lot # [id number] Lot# Expiration Date 2484,128 Blood Capillary blood specimen / Unknown 10/26/2024 10:19 AM EDT Flower Miranda MD POINT OF CARE ALIRIO T ENTER/EDIT ORDERABLES Final Result * CT Abdomen Pelvis w/ Contrast (09/25/2024 7:01 PM EDT) Anatomical Region Laterality Modality Body, Pelvis, Abdomen Computed T omography 09/25/2024 7:01 PM EDT Narrative 09/25/2024 7:03 PM EDT [place] [address] CT Scan Report Signed Patient: Carole Tapia MR#: [id number] : 1950 Acct:[id number] Age/Sex: 73 / F ADM Date: 09/25/24 Loc: HO.ED Attending Dr: Ordering Physician: Nimco Cobian MD Date of Service: 09/25/24 Procedure(s): CT abdomen pelvis w IV con Accession Number(s): [id number] cc: Nimco Cobian MD; Flower High MD Report Number: [id number]: Total DLP = 406.00 mGy-cm CLINICAL HISTORY: epigastric pain CT abdomen and pelvis with contrast Comparison: CT/SR - CT UROGRAM - 04/14/24 15:47 EST Findings: The lung bases are clear. The gallbladder and solid organs are within normal limits. No renal stones. Subcentimeter right renal cyst. Colonic diverticulosis without acute inflammation. No bowel obstruction, pneumatosis or pneumoperitoneum. 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 Aortic atherosclerosis. No aneurysm. Pelvic organs are within normal limits. Degenerative changes of the spine. Chronic grade 1 anterolisthesis of L4 on L5. No acute fracture. IMPRESSION: 1. No acute intraabdominal or pelvic pathology. This document has been electronically signed by: Roge Jenkins MD on 09/25/2024 19:01:14 Dictated By: Roge Jenkins MD Signed By: <Electronically signed by Roge Jenkins MD in OV> 09/25/241901 DD/ 00 TD/TT: 09/25/241900 Belting Inspector: Procedure Note Donotuseinterpreter, Image - 09/25/[address] [place] [address] [address] Scan Report Signed Patient: Sherrie Tapia#: [id number] : 1950cct:[id number] Age/Sex: 73 / FADM Date: 09/25/24 Loc: HO.ED Attending Dr: Ordering Physician: Nimco Cobian MD Date of Service: 09/25/24 Procedure(s): CT abdomen pelvis w IV con Accession Number(s): [id number] cc: Nimco Cobian MD; Flower High MD Report Number: [id number]: Total DLP = 406.00 mGy-cm CLINICAL HISTORY: epigastric pain CT abdomen and pelvis with contrast Comparison: CT/SR - CT UROGRAM - 04/14/24 15:47 EST Findings: The lung bases are clear. The gallbladder and solid organs are within normal limits. No renal stones. Subcentimeter right renal cyst. Colonic diverticulosis without acute inflammation. No bowel obstruction, pneumatosis or pneumoperitoneum. 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 Aortic atherosclerosis. No aneurysm. Pelvic organs are within normal limits. Degenerative changes of the spine. Chronic grade 1 anterolisthesis of L4 on L5. No acute fracture. IMPRESSION: 1. No acute intraabdominal or pelvic pathology. This document has been electronically signed by: Roge Jenkins MD on 09/25/2024 19:01:14 Dictated By: Roge Jenkins MD Signed By: <Electronically signed by Roge Jenkins MD in OV> 09/25/241901 DD/ 00 TD/TT: 09/25/241900 Belting Inspector: [facility] External Provider IMG CT PROCEDURES Edited Result - Final * (ABNORMAL) VENOUS BLOOD GAS (09/25/2024 5:36 PM EDT) VBG pH 7.37 7.32 - 7.43 [facility] Comment:METER #: [id number] additional_comment: Cb moselef VBG PCO2 63 mmHg [facility] Comment:METER #: [id number] additional_comment: Cb moselef VBG PO2 40 mmHg [facility] Comment:METER #: [id number] additional_comment: Cb moselef VBG Base Excess 10.1 mmol/L [facility] Comment:METER #: [id number] additional_comment: Cb moselef VBG HCO3 37(H) 22 - 26 mmol/L [facility] Comment:METER #: [id number] additional_comment: Cb moselef O2 Sat, Sam 59.0 % [facility] Comment:METER #: [id number] additional_comment: Cb moselef 09/25/2024 5:36 PM EDT 09/25/2024 5:41 PM EDT us Generic External Data Provider LAB BLOOD ORDERAB LES Final Result [facility] [address] [place] [phone] * Blood Culture (First) (09/25/2024 5:27 PM EDT) Blood Venous blood specimen / Unknown 09/25/2024 5:27 PM EDT 09/25/2024 5:32 PM EDT Comment:Blood Narrative [facility] - 09/30/2024 7:32 PM EDT Blood Culture (First) No growth after 5 days. Specimen Source: Blood Generic External Data Provider LAB MICROBIOLOGY - GENERAL ORDERABLES Final Result Performing Organization Address [facility]/ZIP Co de Phone Number [facility] [address] [place] [phone] * Blood Culture (Second) (09/25/2024 5:27 PM EDT) Blood Venous blood specimen / Unknown 09/25/2024 5:27 PM EDT 09/25/2024 5:34 PM EDT Comment:Blood Narrative [facility] - 09/30/2024 7:34 PM EDT Blood Culture (Second) No growth after 5 days. Specimen Source: Blood Generic External Data Provider LAB MICROBIOLOGY - GENERAL ORDERABLES Final Result Performing Organization Address [facility] Co de Phone Number [facility] [address] [place] [phone] * B Type Natriuretic Peptide (BNP) (09/25/2024 5:27 PM EDT) Pathologist [facility] B Type Natriuretic Peptide 24 <100 pg/mL [facility] 09/25/2024 5:27 PM EDT 09/25/2024 5:34 PM EDT Generic External Data Provider LAB BLOOD ORDERAB LES Final Result Performing Organization Address [facility] Co de Phone Number [facility] [address] [place] [phone] * Lactic Acid (09/25/2024 5:27 PM EDT) Lactic Acid 1.9 0.5 - 2.0 mmol/L [facility] 09/25/2024 5:27 PM EDT 09/25/2024 5:32 PM EDT us Generic External Data Provider LAB BLOOD ORDERAB LES Final Result [facility] [address] [place], [place] [phone] * XR Chest 2 Views (09/25/2024 4:01 PM EDT) Anatomical Region Laterality Modality Chest Radiographic Janice ging 09/25/2024 4:01 PM EDT Narrative 09/25/2024 4:03 PM EDT [address] [address] XRay Report Signed Patient: Carole Tapia MR#: [id number] : 1950 Acct:[id number] Age/Sex: 73 / F ADM Date: 09/25/24 Loc: HO.ED Attending Dr: Ordering Physician: Cheli Harris Date of Service: 09/25/24 Procedure(s): XR chest 2V Accession Number(s): [id number] cc: Flower High MD; Cheli Harris CLINICAL HISTORY: SOB 2 view chest x-ray Comparison: CR/SR - XR CHEST 2V - 05/10/24 17:[address] [place] [id number] - 11/15/19 14:01 EDT Findings: The lungs are clear. Medial right middle lobe opacity corresponds to pericardial fat pad on prior CT. Normal size heart. No acute fracture. IMPRESSION: 1. No acute findings. This document has been electronically signed by: Roge Jenkins MD on 09/25/2024 16:01:26 Dictated By: Roge Jenkins MD Signed By: <Electronically signed by Roge Jenkins MD in OV> 09/25/24 1602 DD/ 1601 TD/TT: 09/25/24 1601 Belting Inspector: Procedure Note Donotuseinterpreter, Image - 09/25/[address] [address] XRay Report Signed Patient: Sherrie Tapia#: [id number] : 1950cct:[id number] Age/Sex: 73 / FADM Date: 09/25/24 Loc: HO.ED Attending Dr: Ordering Physician: Cheli Harris Date of Service: 09/25/24 Procedure(s): XR chest 2V Accession Number(s): [id number] cc: Flower High MD; Cheli Harris CLINICAL HISTORY: SOB 2 view chest x-ray Comparison: CR/SR - XR CHEST 2V - 05/10/24 17:[address] [place] [id number] - 11/15/19 14:01 EDT Findings: The lungs are clear. Medial right middle lobe opacity corresponds to pericardial fat pad on prior CT. Normal size heart. No acute fracture. IMPRESSION: 1. No acute findings. This document has been electronically signed by: Roge Jenkins MD on 09/25/2024 16:01:26 Dictated By: Roge Jenkins MD Signed By: <Electronically signed by Roge Jenkins MD in OV> 09/25/24 1602 DD/ 1601 TD/TT: 09/25/24 1601 Belting Inspector: [facility] External Provider IMG XR PROCEDURES Final Result * SARS-CoV-2 RNA, Influenza A/B, and RSV RNA, Ql NAAT (09/25/2024 3:52 PM EDT) Influenza A PCR NEGATIVE Negative [facility] Influenza B PCR NEGATIVE Negative [facility] Resp Syncy Virus RNA Qual PCR NEGATIVE Negative [facility] SARS COV2 PCR NEGATIVE Negative [facility] Comment:All test results mus t be correlated with clinical findings.Negative results do not preclude SARS-CoV2, influenza Avirus, influenza B virus and/or RSV infectionand should not be used as the sole basis for treatment orother patient management decisions. Negative results must becombined with clinical observations, patient history, andepidemiological information.This test has not been evaluated for monitoring treatment ofinfection.This test has been authorized by the FDA under an EmergencyUse Authorization (EUA) for use by authorized laboratories.Testing performed on the [employer] GeneXpert utilizingreal-time RT-PCR.All SARS CoV2 and positive influenza A/B results arereported to [facility]. 09/25/2024 3:52 PM EDT 09/25/2024 3:57 PM EDT Generic External Data Provider LAB MICROBIOLOGY - GENERAL ORDERABLES Final Result Performing Organization Address [facility]/ZIP Co de Phone Number [facility] [address] [place] [phone] * Lipase (09/25/2024 3:52 PM EDT) Lipase 24 8 - 78 U/L [facility] 09/25/2024 3:52 PM EDT 09/25/2024 3:57 PM EDT Generic External Data Provider LAB BLOOD ORDERAB LES Final Result Performing Organization Address [facility] de Phone Number [facility] [address] [place] [phone] * (ABNORMAL) Hepatic Function Panel (09/25/2024 3:52 PM EDT) Bilirubin, Total 0.1 0.0 - 1.0 mg/dL [facility] Bilirubin, Direct <0.2 0.0 - 0.5 mg/dL [facility] Aspartate Amino Transferase 18 5 - 31 U/L [facility] Alanine Aminotransferase 14 0 - 31 U/L [facility] Total Protein 6.2(L) 6.5 - 8.0 g/dL [facility] Albumin Level 3.8 3.5 - 5.0 g/dL [facility] Alkaline Phosphatase 54 39 - 117 U/L [facility] 09/25/2024 3:52 PM EDT 09/25/2024 3:57 PM EDT us Generic External Data Provider LAB BLOOD ORDERAB LES Final Result Performing Organization Address City/[facility]/ZIP Co de Phone Number [facility] [address] [place] [phone] * (ABNORMAL) Basic Metabolic Panel (09/25/2024 3:52 PM EDT) Sodium 143 135 - 145 mmol/L [facility] Potassium 3.4 3.3 - 5.1 mmol/L [facility] Chloride 104 96 - 108 mmol/L [facility] Carbon Dioxide 30(H) 22 - 29 mmol/L [facility] Anion Gap 12 12 - 20 [facility] Urea Nitrogen (BUN) 13 9 - 16 mg/dL [facility] Creatinine, Serum 0.95 0.5 - 1.4 mg/dL [facility] Creatinine Clr Calc Pharmacy 42.2 [facility] Comment:Provided height and weight: 149.86 cm,58.2 kg.eGFR (calculated from the MDRD study equation) and eCrCl(calculated from the Cockcroft-Gault equation) are based ondifferent parameters and may not yield comparable results.If eCrCl result is absurd, please check patient'sheight/weight. Estimated Glomerular Filt Rate 58 [facility] Comment:Chronic Kidney Disea se: Estimated GFR < 60 mL/min/1.39u2Cbfuvq Kidney Disease: Estimated GFR < 15 mL/min/1.73m2 Glucose 101 60 - 115 mg/dL [facility] Calcium 9.0 8.4 - 10.2 mg/dL [facility] 09/25/2024 3:52 PM EDT 09/25/2024 3:57 PM EDT us Generic External Data Provider LAB BLOOD ORDERAB LES Final Result Performing Organization Address City/[facility]/ZIP Co de Phone Number [facility] [address] [place] [phone] * ECG 12 lead (09/01/2024 3:34 PM EDT) Narrative Flower High MD - 09/01/2024 3:34 PM EDT EKG today HR 88, Qtc 411, NSR, normal us Flower Miranda MD ECG ORDERABLES F inal Result * XR Thoracic Spine 2 Views (08/16/2024 10:15 AM EDT) Anatomical Region Laterality Modality Spine, T-spine Radiographic Janice ging 08/16/2024 10:1 5 AM EDT Narrative 08/16/2024 12:42 PM EDT [address] [address] XRay Report Signed Patient: Carole Tapia MR#: [id number] : 1950 Acct:[id number] Age/Sex: 73 / F ADM Date: 08/16/24 Loc: [facility] Attending Dr: Frida Smith DO Ordering Physician: Frida Smith DO Date of Service: 08/16/24 Procedure(s): XR thoracic spine 2V Accession Number(s): [id number] cc: Frida Smith DO EXAMINATION: XR THORACIC SPINE CLINICAL INFORMATION: CHRONIC SEVERE MID BACK AND BILATERAL LOW BACK pain COMPARISON: None available. TECHNIQUE: AP, lateral, and swimmer's view of the thoracic spine were obtained. FINDINGS: Vertebral body height and alignment is preserved. There is mild disc space narrowing at T11-12 and T12-L1 with anterior osteophytes. No abnormalities are evident. XR/XR thoracic spine 2V IMPRESSION: Mild degenerative disc disease T11-12 and T12-L1 . Electronically signed by: Levi Ugarte MD 08/16/2024 12:39 PM EDT Dictated By: Levi Ugarte MD Signed By: <Electronically signed by Levi Ugarte MD in OV> 08/16/24 1239 DD/ 1015 TD/TT: 08/16/24 1020 Belting Inspector: Procedure Note Donotuseinterpreter, Image - 08/16/[address] [address] XRay Report Signed Patient: Sherrie Tapia#: [id number] : 1950cct:[id number] Age/Sex: 73 / FADM Date: 08/16/24 [facility] Dr: Frida Smith DO Ordering Physician: Frida Smith DO Date of Service: 08/16/24 Procedure(s): XR thoracic spine 2V Accession Number(s): [id number] cc: Frida Smith DO EXAMINATION: XR THORACIC SPINE CLINICAL INFORMATION: CHRONIC SEVERE MID BACK AND BILATERAL LOW BACK pain COMPARISON: None available. TECHNIQUE: AP, lateral, and swimmer's view of the thoracic spine were obtained. FINDINGS: Vertebral body height and alignment is preserved. There is mild disc space narrowing at T11-12 and T12-L1 with anterior osteophytes. No abnormalities are evident. XR/XR thoracic spine 2V IMPRESSION: Mild degenerative disc disease T11-12 and T12-L1 . Electronically signed by: Levi Ugarte MD 08/16/2024 12:39 PM EDT Dictated By: eLvi Ugarte MD Signed By: <Electronically signed by Levi Ugarte MD in OV> 08/16/24 1239 DD/ 1015 TD/TT: 08/16/24 1020 Belting Inspector: us Frida Smith DO IMG XR PROCEDURES Final Resu lt * XR Lumbar Spine 2-3 Views (08/16/2024 10:14 AM EDT) Anatomical Region Laterality Modality Spine, L-spine Radiographic Janice ging 08/16/2024 10:1 4 AM EDT Narrative 08/16/2024 12:44 PM EDT [address] [address] XRay Report Signed Patient: Carole Tapia MR#: [id number] : 1950 Acct:[id number] Age/Sex: 73 / F ADM Date: 08/16/24 Loc: [facility] Attending Dr: Frida Smith DO Ordering Physician: Frida Smith DO Date of Service: 08/16/24 Procedure(s): XR lumbar spine 2-3V Accession Number(s): [id number] cc: Frida Smith DO EXAMINATION: XR LUMBOSACRAL SPINE CLINICAL INFORMATION: severe mid to low back pain COMPARISON: None available. TECHNIQUE: Three views of the lumbosacral spine. FINDINGS: Vascular calcification is present in the aorta. There are 5 nonrib-bearing lumbar segments with sacralized L5 segment. There is 15 degrees levoscoliosis. T12-L1: Moderate disc space narrowing, subtle retrolisthesis, and anterior osteophytes. L1-2: Subtle retrolisthesis, mild to moderate disc space during, and endplate osteophytes and sclerosis. L2-3: Subtle retrolisthesis. L3-4: Subtle retrolisthesis. L4-5: Grade 1 anterolisthesis and facet osteophytes and sclerosis. L5-S1: Facet sclerosis and osteophytes. XR/XR lumbar spine 2-3V IMPRESSION: Mild scoliosis and degenerative changes most advanced at the thoracal lumbar junction. Electronically signed by: Levi Ugarte MD 08/16/2024 12:41 PM EDT Dictated By: Levi Ugarte MD Signed By: <Electronically signed by Levi Ugarte MD in OV> 08/16/24 1241 DD/ 1014 TD/TT: 08/16/24 1020 Belting Inspector: Procedure Note Donotuseinterpreter, Image - 08/16/[address] [address] XRay Report Signed Patient: Keith TapiaR#: [id number] : 1950cct:[id number] Age/Sex: 73 / FADM Date: 08/16/24 Loc: HO.HHCX Attending Dr: Frida Smith DO Ordering Physician: Frida Smith DO Date of Service: 08/16/24 Procedure(s): XR lumbar spine 2-3V Accession Number(s): [id number] cc: Frida Smith DO EXAMINATION: XR LUMBOSACRAL SPINE CLINICAL INFORMATION: severe mid to low back pain COMPARISON: None available. TECHNIQUE: Three views of the lumbosacral spine. FINDINGS: Vascular calcification is present in the aorta. There are 5 nonrib-bearing lumbar segments with sacralized L5 segment. There is 15 degrees levoscoliosis. T12-L1: Moderate disc space narrowing, subtle retrolisthesis, and anterior osteophytes. L1-2: Subtle retrolisthesis, mild to moderate disc space during, and endplate osteophytes and sclerosis. L2-3: Subtle retrolisthesis. L3-4: Subtle retrolisthesis. L4-5: Grade 1 anterolisthesis and facet osteophytes and sclerosis. L5-S1: Facet sclerosis and osteophytes. XR/XR lumbar spine 2-3V IMPRESSION: Mild scoliosis and degenerative changes most advanced at the thoracal lumbar junction. Electronically signed by: Levi Ugarte MD 08/16/2024 12:41 PM EDT Dictated By: Levi Ugarte MD Signed By: <Electronically signed by Levi Ugarte MD in OV> 08/16/24 1241 DD/ 1014 TD/TT: 08/16/24 1020 Belting Inspector: us Frida Smith DO IMG XR PROCEDURES Final Resu lt * Hepatitis C Antibody with Reflex to HCV, RNA, Quantitative, Real-Time PCR (01/06/2024 11:28 AM EST) Hepatitis C Antibody Nonreactive Nonreactive [facility] Comment:Antibodies to HCV no t detected; does not exclude early acuteHCV infection. Blood Venous blood specimen / Unknown 01/06/2024 11:28 AM EST 01/06/2024 1:08 PM EST us Flower Miranda MD LAB BLOOD ORDERAB LES Final Result [facility] [address] [place] [address] [phone] * BI Mammogram Screening Tomosynthesis Bilateral (12/25/2023 12:35 PM EST) Anatomical Region Laterality Modality Breast Bilateral Mammography 12/25/2023 12:3 5 PM EST Narrative 01/02/2024 4:11 PM EST [address] [place] [address] Mammography Report Signed Patient: Carole Tapia MR#: [id number] : 1950 Acct:[id number] Age/Sex: 72 / F ADM Date: 12/25/23 Loc: HO.MAMMO Attending Dr: Flower Miranda MD Ordering Physician: Flower High MD Re sults: 2Benign Findings Date of Service: 12/25/23 Follow Up: 1 Year From Orig inal Mammogram Procedure(s): MM tomosynthesis screening BI Accession Number(s): [id number] cc: Flower High MD EXAMINATION: MM SCREENING [...] by: Fabiana Casiano DO 01/02/2024 04:08 PM [facility] Dictated By: Fabiana Casiano DO Signed By: <Electronically signed by Fabiana Casiano DO in OV> 01/02/24 1608 DD/ 1235 TD/TT: 12/25/23 1253 Belting Inspector: Procedure Note Donotuseinterpreter, Image - 01/02/2024 [facility] [address] [place] [address] Mammography Report Signed Patient: Sherrie Tapia#: [id number] : 1950cct:[id number] Age/Sex: 72 / FADM Date: 12/25/23 Loc: HO.MAMMO Attending Dr: Flower Miranda MD Ordering Physician: Flower High sults: 2Benign Findings Date of Service: 12/25/23Follow Up: 1 Year From Orig ina Mammogram Procedure(s): MM tomosynthesis screening BI Accession Number(s): [id number] cc: Flower High MD EXAMINATION: MM SCREENING [...] 01/02/24 1608 DD/ 1235 TD/TT: 12/25/23 1253 Belting Inspector: Flower Miranda MD IMG BI PROCEDURES Final Result * Referral to Podiatry (09/29/2023) Flower Miranda MD OUTPATIENT REFERR AL ORDERABLES Final Result * Colonoscopy (06/16/2012) Colonoscopy Normal Normal Historical Provider HEALTH MAINTENANCE Final Result from Last 3 Months or Most Recently Relevant to Health Maintenance Insurance [facility] RESIDENTIAL OPTIONS (O D-SNP) [place] [id number] [facility] Care Teams Ratoprinter Relationship Specialty Start Date End Date Flower High MD [address] [place] [address] PCP - General Internal Medicine 07/19/22 Altranais 06/08/24
== END 2024-10-26 10:48 | disposition home or self-care (01) ==
LOC: HO.HHCL 10:47
PROVIDERS: Urology; PCP Student in an Organized Health Care Education/Training Program; Referring Provider Student in an Organized Health Care Education/Training Program; Visit Provider Family Medicine
DX: E11.9 Type 2 diabetes mellitus without complications (principal); E83.42 Hypomagnesemia; R20.2 Paresthesia of skin; D72.10 Eosinophilia, unspecified; Z79.4 Long term (current) use of insulin
CPT/HCPCS: 36415; 80053; 80061; 81001; 82043; 82570; 82607; 82746; 83036; 83735; 85025

== ENCOUNTER 2024-12-06 13:11 | Outpatient (AMB) | payer OTHER, SELFPAY ==
--- NOTE | 2024-12-06 13:13 | A.OFFVIS_ITS ---
Vital Signs 12/06/24 13:14 Height 4 ft 11 in Weight 127 lb 13.89 oz BMI 25.8 BP 100/50 L Blood Pressure Location Lt brachial Position Sitting Pulse 98 Pulse Source Pulse Oximeter Pulse Oximetry (%) 98 Oxygen Delivery Method Room Air Intake Visit Reasons: COPD Accompanied by: Grand Child Allergies No Known Allergies (No Known Allergies*) Allergy (Verified 12/06/24 13:16) HPI Comments Details: The patient is a 73-year-old woman known COPD in addition to obstructive sleep apnea. Apparently she has had multiple sleep studies in the past going back to 2010. She has had issues with hypoxia at nighttime. She has daytime drowsiness and does have headaches in the morning. Moderate severity. Her Cyclone score is elevated. Her last CPAP study was back in 2018 which she did have mild sleep apnea. The patient has become more symptomatic and she does carry cardiovascular risks so this point will repeat her study. I'm hoping home sleep study will be sufficient. In the meantime the patient continues to have shortness of breath she does use inhalers at home but is very confusing for her to know which 1 she is supposed to be using. I do think that we need to optimize respiratory therapy and improve her adherence and we can do this with trelegy. The patient has not had any recent pulmonary function study. She also has nasal congestion. She has had epistaxis. 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 She does use allergy medicines but still has significant congestion. Moderate severity. Complains of a postnasal drip and cough. We will try Astelin nasal spray. 10/27/2020 the patient is here for a pulmonary follow-up visit. She has had been having worsening respiratory symptoms. Has significant wheezing and chest congestion and cough. She has been like this now for few weeks. Seems to be getting worse. She had to stop the Daliresp as it was not helping. She also tried multiple numerous inhalers that have not been helpful. The only beneficial 1 was Bevespi. Will try her on Breztri at this at this time. In the meantime she continues to have significant daytime drowsiness. We did have her undergo a in-lab study. Her AHI was up to 30 consistent with severe sleep apnea. Patient needs to start CPAP therapy at this time. Will make arrangements with local [employer] company to start the therapy. In the meantime we did review her blood work demonstrating significant eosinophilia and also significant elevations in the IgE consistent with allergic asthma. The patient has required maximize respiratory therapy with partial resolution her symptoms and frequent prednisone. The patient is a great candidate for biologic therapy. She had been on Xolair in the past and that appear to be effective for her. I do believe that she brought will respond better to Dupixent at this time. 10/12/2021 The patient is here for a pulmonary follow up visit. She continues to struggle with her asthma. Developed worsening wheezing and productive cough. Prior to this she was doing well for several months. Unfortunately, she is grieving the of her daughter. Could not start the Daliresp. She was started on Dupixent and she feels that is working. We will continue to monitor her progress. If she continues to require prednisone then we could consider swit ramses to Tezspire. 02/25/2022 the patient is here for a pulmonary follow-up visit. She is having worsening respiratory symptoms. Complaining of chest tightness and wheezing. Moderate severity. She was responding very well to the Dupixent. She was no longer requiring prednisone. Her respiratory symptoms were much improved. However for some reason she has not able to get the injections anymore. Will look into it further. Hoping for her to continue biologic therapy. The meantime she does have significant wheezing and will start her on prednisone. She also get her CPAP. The CPAP therapy will be affecting beneficial. Although still not adjusted for her. She is having issues because is having too much water draining to her mask. I also see that she is using a nasal pillow mask. This is that appear to be effective for her. Therefore I did provide her with an F20 fullface mask. We continue with the APAP at the current settings but I brought the humidity down to 1. I am hopeful that she can tolerated better. She will bring in the next few months in order to make sure that she is doing better with. She is aware that she needs to use it at least 4 hours a day. 04/25/2023 the patient is here for sick visit. She has had worsening respiratory symptoms for the last week. She is feeling that she is getting worse. Significant chest tightness and some wheezing. Moderate severity. Unfortunately her nebulizer tubing broken she has not been able to use it. She does have a Trelegy inhaler she has been using also her rescue inhaler. These therapies only been partially helpful. And only for short period of time. The patient has been struggling with significant wheezing. During the last visit she did require prednisone. Prior to that she had been on biologic therapies which have been very helpful. At this time will provide her with a nebulizer treatment in the office. After the treatment she was able to improves therefore will send her additional prednisone and antibiotics in the pharmacy. Patient also took the tubing were her to use her nebulizer home to to 4 times a day. If the patient is no better she will call the office for an earlier assessment. Although I so follow-up in 4-6 months. 10/27/2023 the patient is here for a pulmonary follow-up visit. She continues to struggle with breathing. Significant wheezing and chest congestion. Moderate to severe. She had been on multiple courses of prednisone. She was approved to restart her Dupixent but she did not get the prescription filled as of yet. I did walk the family to the pharmacy and she was able to pick it up. Therefore she can start as soon as possible. In the meantime she does have significant wheezing on examination and she must be treated for an asthma exa cerbation at this time. She also has chronic bronchitis. Therefore will start azithromycin 3 times a week for chronic bronchitis treatment. She will need to get an EKG however. She will continue with the current respiratory therapy including Trelegy. The patient is also a former smoker. She Only quit this year. She has smoked for more than 40 years. She does have a greater than 30 pack-year history of smoking so therefore will go ahead and refer her to the lung cancer screening program at this time. 12/25/2023 the patient is here for a pulmonary follow-up visit. She is struggling with breathing again. She did get the Dupixent the last time but then she did not get it mailed to her house so she was not taking it regularly. She continues use her respiratory therapy with partial improvement. She also was using the azithromycin 3 times a week without any significant improvement. Therefore she can stop that and will going to send her different antibiotic to the pharmacy. The patient is going to require Solu-Medrol today she has significant wheezing. And she needs to continue the Dupixent every 2 weeks more coherently. When she returns in 6-8 weeks will reassess. If she continues to have difficulties will switch over her biologic to a different agent. Will go ahead have her get an x-ray today. Consider bronchoscopy to better address the airways further if she does not getting any improvement. 04/09/2024 the patient is here for a pulmonary follow-up visit. She is having hard time breathing for the last couple weeks. She has been having hard time sleeping because of the shortness of breath. Moderate to severe. She has been using her Dupixent injections every 2 weeks. For some reason she ran out of her inhalers. Will go ahead and send him off to the pharmacy again. But at this point the patient is requiring Solu-Medrol prednisone every visit. Therefore the Dupixent is not helping her. Will go ahead and switch over to test prior at this time. In the meantime she will receive Solu-Medrol today for the significant wheezing and will start a course of antibiotics and prednisone. If the patient is to worsen she needs to go to the ER. We also did look at her CT scan of the chest which was personally by me. She had as far as the lung cancer screening program. Everything stable. 09/06/2024 the patient is here for a pulmonary follow-up visit. She continues to struggle with her breathing. She gets very short of breath even with minimal activity. Now specially with the heat in the humidity. She continues use the nebulizer 4 times a day and also has been on Trelegy. Will go ahead and start her on a small dose of prednisone. The patient already tried multiple biologic therapies without any significant relief. She stopped the test prior because she did not see any benefit. She also was diagnosed with bladder cancer now following closely with urology. She will stay on a small dose of prednisone for little bit of 10 mg to see if this provides any relief. We can also consider theophylline as an option. But the most important things that she is still smoking cigarettes. The patient has smokes cigarettes and she was given Ni corette gum. Will go ahead and place her on a medium nicotine patch and then she can have the gum for breakthrough. We did talk about the instructions on how much she can actually used to avoid going over 20 mg of nicotine altogether a day. 12/06/2024 the patient is here for a pulmonary follow-up visit. She is still struggling with her breathing. Significant wheezing. Moderate In severity. The Trelegy inhaler has been helpful. Her albuterol rescue inhaler is not. Will go ahead and send her Combivent for more broader bronchodilation. In the meantime the patient did have blood work. Her eosinophils are elevated. She will be a good candidate for Nucala in view of her ongoing use of prednisone. She continues on 10 mg of prednisone at this time. The patient also struggling with the smoking. She is down to about 1-2 cigarettes a day. I will send her the nicotine patch in order for her to be able to quit altogether. COUNT INCLUDES THE [facility] Medical History Bladder mass Personal history of nicotine dependence Osteopenia Bladder cancer (~2019) Hypertension Diabetes mellitus Asthma-COPD overlap syndrome JIMBO (obstructive sleep apnea) Nicotine dependence, cigarettes, uncomplicated Bilateral anterior knee pain Surgical History History of transurethral resection of bladder tumor (TURBT) History of esophagogastroduodenoscopy (EGD) History of colonoscopy Social History (Updated 12/06/24 @ 13:18 by Veronica Blair CMA) Household Members: None Housing: Apartment Are you a primary critical care registered nurse to a significant other at home: No Do you presently have visiting nurse or other home services: Yes ([employer] ([employer])) Patient Tobacco Use Status: Current everyday Tobacco user Tobacco use type: Cigarette Cigarettes Per Day: 1 Years Smoked: (onset 15yr,s 1/2-1ppd x 50yrs, 35pyh, quit 2020) service: No Current occupational status: retired and disabled 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 Review of Systems Const Denies night sweats ENT Denies change in voice, Denies lip swelling, Denies mouth pain, Reports nasal congestion, Reports nasal discharge and Denies tongue swelling Card Denies chest pain and Reports dyspnea on exertion Resp Reports chest congestion, Reports cough, Denies hemoptysis, Reports dyspnea on exertion and Reports wheezing GI Denies abdominal pain Musc Denies no additional complaints Neuro Denies Neuro-related abnormal movements Psych Denies no additional complaints Kiran/Lymph Denies easy bleeding and Denies lymphadenopathy Aller/Immun Denies lip swelling, Denies tongue swelling and Reports wheezing Physical Exam Vital Signs: Last Vital Signs Pulse 98 12/06/24 13:14 BP 100/50 L 12/06/24 13:14 Pulse Ox 98 12/06/24 13:14 Oxygen Delivery Method Room Air 12/06/24 13:14 BMI result Body Mass Index 25.8 Const General: alert Neck Neck: Yes normal visual inspection, Yes full ROM and Yes no lymphadenopathy Chest Chest palpation & inspection: normal inspection of the chest Resp Effort & Inspection: prolonged expiratory phase Auscultation: wheezes and diminished lung sounds Cardio Rate: regular rate Rhythm: regular rhythm Heart sounds: S1 normal heart sound present and S2 normal heart sound present GI Palpation (GI): Soft to palpation and nontender Auscultation: normal bowel sounds Skin General skin exam: rashes and/or lesions noted Assessment & Plan Assessment & Plan (1) Asthma: Code(s): J45.909 - Unspecified asthma, uncomplicated Category: Medical Qualifiers: Asthma complication type: with acute exacerbation Asthma persistence: persistent Asthma severity: severe Qualified Code(s): J45.51 - Severe persistent asthma with (acute) exacerbation (2) Asthma-COPD overlap syndrome: Code(s): J44.9 - Chronic obstructive pulmonary disease, unspecified Category: Medical (3) JIMBO (obstructive sleep apnea): Code(s): G47.33 - Obstructive sleep apnea (adult) (pediatric) Category: Medical (4) Nicotine dependence, cigarettes, uncomplicated: Comment: (>30pyh) Code(s): F17.210 - Nicotine dependence, cigarettes, uncomplicated Category: Medical Plan Prednisone 10mg daily Duoneb QID BUdesonide BID Nebulizer with albuterol 3-4 times aday continue Trelegy 200mcg start Combivent Continue Claritin/astelin/Singulair Continue Fluticasone NS continue APAP, provided her a med F20 mask stppedTezspire start Nucala smoking cessation: nicotine patch F/U 3-4 months Medications: New ipratropium-albuterol 20-100 mcg/actuation (Combivent Respimat) 1 puff inhalation Q6H 4 grams 9RF nicotine 1 patch transdermal DAILY 28 ea 5RF 28 days azithromycin Take 1 tablet on Friday/Friday/Friday 250 mg PO 3XW 12 tabs 6RF 28 days K21.9 - Gastro-esophageal reflux disease without esophagitis nicotine 1 patch transdermal DAILY 28 ea 3RF 28 days Coding Level of Care Code Est Pt Level 4 (45587) Complex EM visit Add On G2211 Diagnoses Severe persistent asthma with acute exacerbation J45.51 Asthma complication type: with acute exacerbation Asthma persistence: persistent Asthma severity: severe Asthma-COPD overlap syndrome J44.9 JIMBO (obstructive sleep apnea) G47.33 Nicotine dependence, cigarettes, uncomplicated F17.210 Time Spent (min) 17
[2024-12-06 13:14] VITALS: BP 100/50; PULSE 98; O2SAT 98; BMI 25.8
== END 2024-12-06 13:37 | disposition home or self-care (01) ==
LOC: HO.HPS 13:12
PROVIDERS: PCP Student in an Organized Health Care Education/Training Program; Visit Provider Hospitalist
DX: J45.51 Severe persistent asthma with (acute) exacerbation (principal); J44.9 Chronic obstructive pulmonary disease, unspecified; G47.33 Obstructive sleep apnea (adult) (pediatric); F17.210 Nicotine dependence, cigarettes, uncomplicated
CPT/HCPCS: 99214; G2211

== ENCOUNTER → 2024-12-06 13:11 | Outpatient (BNVA) | payer OTHER, SELFPAY | PROVIDERS: PCP Student in an Organized Health Care Education/Training Program; Visit Provider Hospitalist | DX: J45.51 Severe persistent asthma with (acute) exacerbation (principal); J44.9 Chronic obstructive pulmonary disease, unspecified; G47.33 Obstructive sleep apnea (adult) (pediatric); F17.210 Nicotine dependence, cigarettes, uncomplicated | CPT/HCPCS: 99212 ==

== ENCOUNTER 2024-12-16 13:16 | Outpatient (AMB) | payer OTHER, SELFPAY ==
--- OUTSIDE RECORDS SUMMARY | 2024-10-26 09:45 | XMS_ITS | Encounter Summary ---
Author Organization [employer] Address [address] [place] [id number] Care Team Providers Care Roof Shingler Name Role Phone Flower High MD Primary Care Pro vider Reason for Referral * Imaging (Routine) - Authorized Specialty Diagnoses / Procedures Referred By Contac t Referred To Contact Radiology Diagnoses Osteopenia, unspecified location Procedures BD DEXA Axial Flower High MD [address] [place] [address] Phone: tel: fax: [address] Phone: tel: fax: Referral ID Status Reason Start Date Expiration Date V isits Requested Visits Authorized [id number] Authorized 10/26/2024 10/26/2025 1 1 Encounter Details Date Type Department Care Team (Late st Contact Info) Description 10/26/2024 9:45 AM EDT Office Visit [facility] MEDICINE [address] [place] [phone] Flower High MD [address] [place] [address] [phone] Osteopenia, unspecified location (Primary Dx); Type 2 diabetes mellitus without complication, with long-term current use of insulin ([facility]); Hypomagnesemia; Hypertension, unspecified type; Diabetes due to underlying condition w oth circulatory comp ([facility]); Gastroesophageal reflux disease, unspecified whether esophagitis present; Health care maintenance; Bladder CA in situ; Asthma-COPD overlap syndrome; Type 2 diabetes mellitus with retinopathy, with long-term current use of insulin, macular edema presence unspecified, unspecified laterality, unspecified retinopathy severity ([facility]) Social History Tobacco [...] 9:56 AM EDT documented in this encounter Progress Notes * Flower Miranda MD - 10/26/2024 9:45 AM EDT Subjective Patient ID: Carole Tapia is a 73 y.o. 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 Mag 1.3 ,lipase wnl,lactic acid wnl, ProBNP wnl, BC x2 Denies melenas nor BRPR , nor hematuria ,symptoms started after got chemtx ,denies ongoing vomit nor diarrhea but ongoing epigastric abd pain as burning sensation -CT abdomen pelvis w IV con 09/25/2024 The lung bases are clear. The gallbladder and solid organs arewithin normal limits. No renal stones. Subcentimeter right renal cyst. Colonic diverticulosis without acute inflammation. No bowel obstruction, pneumatosis or pneumoperitoneum. 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 Aortic atherosclerosis. No aneurysm. Pelvic organs are within normal limits. Degenerative changes of the spine. Chronic grade 1 anterolisthesis of L4 on L5. No acute fracture. -reports to be tolerating well trulicity w improving CBGs ,denies hypoglycemia events Assessment and Plan: Health care maintenance -Annual exam done 11/2023 -Menopause: 48 y of age -pap smear:Last record 09/2020: Neg -pt denies hx of abnormal pap smear ---pt would like to stop screening -MM 12/2023: BIRADS 2: Benign-annual screening-rom MM result The breasts are heterogeneously dense,BI-RADS 2 -calc [facility] Cal[facility] 7.5% so no indication for further breast testing -colonoscopy:Per pt done in 2020 at [facility]--Not able to obtain record, referred to GI given uncertainty.----per pt saw GI but was told to f here before procedure?? Seems they where concern w her lung status w uncontrolled COPD/Asthma -I called GI office and was not able to speak w staff -leftvoice mail w my number to get a call to clarify, but explained to pt that they need GI to discuss wher brine well operator for pulm clearance if colonoscopy is planned - daughter states will call GI --states on hold for current bladder cancer -DEXA scan 11/2022: Osteopenia based on the lowest T-score value of -1.5 in the femoral neck,Major osteoporotic fracture(clinical spine, forearm, hip or shoulder) 7.2%. Hip fracture 1.1%.--referred today for DEXA scan to monitor ,pt on chronic steroids -vaccines:s/p hepAx4, HepBx5 -immune, Covid 19x3 and last booster 03/2023 , s/p P23x2 and then p13 x1 ,zoster x2, Flu vaccine 10/2022 ,Tdap 2021, RSV vaccine 03/2023 , P20 06/2023 . COVID 19 and Flu vaccine 11/2023, advised for COVID 19 and Flu vaccine in 10/2024 Overweight BMI 26<--27 -Lost another 4 Pounds in last 2 mo due to chemtx -Advised pt to improve diet and exercise,discussed healthy life style -Will monitor weight at next visit Type 2 diabetes mellitus /HLD -today Gl 94, hb1Ac 7.1 -04/2024 microalg neg , K+ 5.2, LFTS wnl ,hb1AC 9, LDL 102, total ch 236, trig 179 ASCVD 22%-- pt already on statins and ASA -ophthalmology 03/2024 - mild non-proliferative diabetic retinopathy To f in 1 y -Embedded Software Developer 12/30/2023 --seen ok per pt Reports lowest CBG 103 and highest 200s rarely 300s Continue glucose monitor at last apt very high 31%, high 28%, target 39% low 2 % in 08/2204 -continue metformin 500 am and 1000 mg pm, lispro SS-SS ( CBG 150-200: 4u, 201- 250: 6u, 251-300: 8u, 301-350: 10u -Increase today Trulicity to 1.5 from 0.75 mg weekly and decrease lantus to 22 u from 25 u daily - continuous blood glucose monitoring,advised pt to call is having low CBGs < 80s persistently in which case would decrease her lantus dose -Pt already on max dose of Rosuvastatin and ezetimibe -Pd to get done DM labs ordered today -will inform pt w results -to do in fasting today -refuse to f w CDTM Chronic obstructive lung disease (CMS/HCC) Asthma/COPD Overlap syndrome Pt is following w brine well operator -Dr Morales -CT chest,abd/pelvis with contrast 2019:Tree-in-bud appearance and reticulonodular changes in rightupper lobe.These findings are likely secondary to airway disease or inflammatory process. There is a calcified nodule right upper lobe. No consolidation, mass or abnormal mediastinal lymphadenopathy s een.Diffuse colonic diverticulosis without diverticulitis. -LDCT 01/2024 LUNG RAD 1: negative -CXR 04/2024 Triangular-shaped opacity of the right lower lung could represent atelectasis of the right lower lobe. Chest x-ray follow-up is recommended to confirm resolution. Atelectasis/infiltrate of the left lung base. -CXR 09/25/2024 The lungs are clear. Medial right middle lobe opacity corresponds to pericardial fat pad on prior CT. Normal size heart. -stated started on home Ox2 by pulm only for sleep 2 L HS on 08/2024 -f up apt w pulm 12/06/2024 ,Seen last 08/2024 Plan to restart Prednisone 10mg daily ,continue Duoneb QID ,BUdesonide BID ,Nebulizer with albuterol 3-4 times aday ,continue Trelegy 200mcg ,JULIO as needed ,Continue Claritin/astelin/Singulair ,Continue Fluticasone NS , stopped Tezspire -Is pt active tobacco smoking??? -nicotine patch and gum Pxed by her pulm -will fo at next apt JIMBO Pt has JIMBO-uses CPAP at night -sleep study in 2018 : mild JIMBO per pulm note -f w brine well operator who referred back x sleep studies --has apt w 01/2024 ??? - will check w pt if had test done HTN Pt on lisinopril/HDCTZ BP controlled -04/2024 microalg neg -ophthalmology 03/2024 - mild non-proliferative diabetic retinopathy To f in 1 y -EKG 09/2022 at hospital - NSR, QTC 454, no ischemic changes, HR 104 Anemia -05/2024 hb 11.5, WBC 15.9MVC 98.4, -04/2024 immunofixation No monoclonal proteins detected. Hb 12.4 SPEP Consistent with hypogammaglobulinemia. 05/2023 hb 11.5 iron and ferritin wnl, Hb 11.folate as well iron panel ,vit b 12 wnl -Will monitor CBC ordered already to do labs today Gastroesophageal reflux disease on 3 times a week PPIs -Not able to obtain previous GI info. -f w GI already -add famotidine 20 mg HS today , continue pantoprazole 40 mg in am and mylanta PRN -repeat Mag serum today -will inform pt result Bladder CA in situ Fatigue -06/2024 Bladder, posterior wall tumor, biopsy: -Low-grade papillary urothelial carcinoma, noninvasive. Papillary urothelial carcinoma Of note pt denies today to me hx of vaginal bleeding but confirms hx of hematuria -continue care w urologist -Please needs recliner for ongoing fatigue,difficulty breathing ,active cancer on chemotherapy-requested DME to DELISA Stephen at last apt ---tomorrow to be evaluated by PT at home for it per daughter Also pt request commode , pt is able to ambulate around her house but given significant fatigue dueto cancer and chemotherapy is difficult for pt to go to her bathroom at night Allergic rhinitis Chronic nasal congestion and chronic flonase use -advised pt to use only as needed -prescribe instead ocean nasal spray -will refer at future visit to ENT x chronic nasal symptoms and hearing loss eval Left shoulder pain Chronic ongoing left shoulder pain w no trauma hx and no erythema,swelling nor increase in skin temp , pain w ROM -Left shouldler XR 07/2022: No significant bony abnormality of the left shoulder identified. Possible rotator cuff injury -referred already x MRI w/o contrast left shoulder to eval for rotator cuff tear---- never done -saw orthopedic 08/2024 for left shoulder pain. S/p injection, She is not a surgical candidate fup in 6 mo --so aprox 02/2025 -tylenol up to 1000 mg Q 8 h -topical diclofenac cream -avoiding oral NSAIDS x hx of CKD-however last labs Cr was normal -lidoderm patch Panic disorder with agoraphobia Pt w hx of depression/anxiety and panic attacks PHQ9 20 IVÁN 13 no SI -continue care w psychiatrist and therapist-seems f w [facility] clinic in this building -psych meds refilled by specialist --next apt w psychiatrist on tomororw Memory loss Noted pt to be forgetful -MMSE 08/2023 16 - MRI brain ordered but refuse -will need to consider eval at future apt CTS -EMG 02/2023: this is an abnormal study.There is electrodiagnostic evidence for bilateral moderate-severe median neuropathy at the wrist, consistent with carpal tunnel syndrome. There is no electrodiagnostic evidence for ulnar neuropathy, brachial plexopathy, or cervical radiculopathy. -already using wrist brace -planned to have surgery for CTS 07/2023 -lost care but no longer bothering to pt Hearing loss pt w hearing loss bilateral --loading unit tool setter referred but not covered by insurance Urinary incontinence -chronic Osteopenia -DEXA scan 11/2022: Osteopenia based on the lowest T-score value of -1.5 in the femoral neck,Major osteoporotic fracture(clinical spine, forearm, hip or shoulder) 7.2%. Hip fracture 1.1%. -Ca+ 500 BID for osteopenia on steroids continue vit D 1999 -referred for DEXA scan today Coronary artery calcification CP EKG 08/2024 HR 88, Qtc 411, NSR, normal -CT chest 2024 Present, marked and extensive coronary artery calcification Upon questioning reports CP,last 20 min on and off ,currently asymptomatic -Referred to cards----pt lost apt today and got apt for 01/2025--advised daughter to call to see ifcan get earlier apt -alarm signs and symptoms discussed Lower back pain -Lumbar /Thoracic XR 07/2024 Mild scoliosis and degenerative changes most advanced at the thoracal lumbar junction. ,Mild degenerative disc disease T11-12 and T12-L1 . Seems muscular elicited pain w palpation -lidoderm patches -Oxycodone 5 mg BID x 28 days -sates plan for chem until 10/14/2024 thinks chemo is causing pain ,denies GI or symptosm associated ,pain w movement told per onco to expect pain --helping -If needs chronically opiods after complete chemo will need to do contract for opiouids -lidoderm patches -Narcan pxed Review of Systems Constitutional: Negative. Respiratory: Negative. Cardiovascular: Negative. Gastrointestinal: Positive for abdominal pain (epigastric burning sensation, GERD). Objective BP 114/56 (BP Location: Left arm, Patient Position: Sitting, BP Cuff Size: Adult) Pulse 93 Temp97.3 ??F (36.3 ??C) (Temporal) Resp 20 Ht 4' 11 (1.499 m) Wt 130 lb 9.6 oz (59.2 kg) SpO2 99% BMI 26.38 kg/m?? Physical Exam Constitutional: General: She is not in acute distress. Appearance: Normal appearance. Neurological: Mental Status: She is alert. 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 Gastroesophageal reflux disease Relevant Medications famotidine (Pepcid) 20 MG tablet Health care maintenance Hypertension Type 2 diabetes mellitus with retinopathy, with long-term current use of insulin (HCC) Relevant Medications Dulaglutide (Trulicity) 1.5 MG/0.5ML solution auto-injector insulin glargine (Lantus) 100 UNIT/ML injection Other Visit Diagnoses Osteopenia, unspecified location - Primary Relevant Medications Dulaglutide (Trulicity) 1.5 MG/0.5ML solution auto-injector insulin glargine (Lantus) 100 UNIT/ML injection Other Relevant Orders BD DEXA Axial Type 2 diabetes mellitus without complication, with long-term current use of insulin ([facility]) Relevant Medications Dulaglutide (Trulicity) 1.5 MG/0.5ML solution auto-injector insulin glargine (Lantus) 100 UNIT/ML injection Other Relevant Orders POCT Hgb A1c (Completed) POCT Glucose (Completed) Hypomagnesemia Relevant Orders Magnesium (Completed) Diabetes due to underlying condition w oth circulatory comp ([facility]) Relevant Medications Dulaglutide (Trulicity) 1.5 MG/0.5ML solution auto-injector insulin glargine (Lantus) 100 UNIT/ML injection documented in this encounter Plan of Treatment Upcoming Encounters Date Type Department Care Team (Late st Contact Info) Description 01/04/2025 3:00 PM EST Clinical Support [facility] CHC MED & PEDS [address] [place] [address] Cori Dave, RN [address] [place] [address] 02/25/2025 11:30 AM EST Office Visit [facility] MEDICINE [address] [place] [address] Flower High MD [address] [place] [address] 04/27/2025 3:00 PM EDT Office Visit [facility] OPTOMETRY [address] [place] [address] Mabel Fraire, OD [address] [place] [address] Scheduled Orders Name Type Priority Associated Diagnoses Orde r Schedule BD DEXA Axial Imaging Routine Osteopenia, unspecified location Expected: 10/26/2024, Expires: 10/26/2025 documented as of this encounter Procedures Procedure Name Priority Date/Time Associated Diagnosis Comments MAGNESIUM Routine 10/26/2024 10:55 AM EDT Hypomagnesemia POCT GLYCATED HEMOGLOBIN, TOTAL Routine 10/26/2024 10:20 AM EDT Type 2 diabetes mellitus without complication, with long-term current use of insulin ([facility]) POCT GLUCOSE Routine 10/26/2024 10:19 AM EDT Type 2 diabetes mellitus without complication, with long-term current use of insulin ([facility]) documented in this encounter Results * (ABNORMAL) Magnesium (10/26/2024 10:55 AM EDT) Magnesium 1.5(L) 1.6 - 2.6 mg/dL [facility] Blood Venous blood specimen / Unknown 10/26/2024 10:55 AM EDT 10/26/2024 11:24 AM EDT us Flower Miranda MD LAB BLOOD ORDERAB LES Final Result [facility] [address] [place] [phone] * (ABNORMAL) POCT Hgb A1c (10/26/2024 10:20 AM EDT) Hemoglobin A1C 7.1(A) 4.0 - 5.7 % QC Media Lot # [id number] Lot# Expiration Date [id number] Blood 10/26/2024 10:2 0 AM EDT us Flower Miranda MD POINT OF CARE ALIRIO T ENTER/EDIT ORDERABLES Final Result * POCT Glucose (10/26/2024 10:19 AM EDT) Glucose Blood, POC 94 60 - 200 mg/dL QC Media Lot # [id number] Lot# Expiration Date [id number] Blood Capillary blood specimen / Unknown 10/26/2024 10:19 AM EDT Flower Miranda MD POINT OF CARE ALIRIO T ENTER/EDIT ORDERABLES Final Result documented in this encounter Visit Diagnoses Diagnosis Osteopenia, unspecified location- Primary Type 2 diabetes mellitus without complication, with long-term current use of insulin (HCC) Hypomagnesemia Disorders of magnesium metabolism Hypertension, unspecified type Diabetes due to underlying condition w oth circulatory comp (HCC) Gastroesophageal reflux disease, unspecified whether esophagitis present Health care maintenance 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 of bladder 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
--- NOTE | 2024-12-16 13:24 | MHC.OFFVIS ---
Intake Visit Reasons: follow up Intake Note: Patient is present for a follow up Urology Medication:Vitamin B12, Myrbetriq Antibiotic Allergy:NONE Blood Thinner:Aspirin Production Assembly Supervisor Required: Yes Production Assembly Supervisor Language: Terminal Supervisor Services: Production Assembly Supervisor Present Allergies No Known Allergies (No Known Allergies*) Allergy (Verified 12/16/24 13:24) Medication List - Last Reconciled 12/16/24 by Abran Hayes MD albuterol sulfate 2.5 mg (3 mL) inhalation QID albuterol sulfate 90 mcg/actuation 2 puffs inhalation Q6H PRN 30 days aspirin 81 mg PO BEDTIME Held on 07/07/24. Instructions: Resume on 07/14/24. azithromycin 250 mg PO 3XW 28 days buspirone 10 mg PO BID calcium carbonate 500 mg PO BID cetirizine 10 mg PO DAILY cholecalciferol (vitamin D3) 50 mcg PO DAILY cyanocobalamin (vitamin B-12) 1,000 mcg PO QPM doxycycline hyclate 100 mg PO BID dhpqvfntzhy-sfipgfufu-uijkesbl 200-62.5-25 mcg (Trelegy Ellipta) 1 inh inhalation DAILY gabapentin 300 mg PO TID ipratropium-albuterol 0.5 mg-3 mg(2.5 mg base)/3 mL 3 mL inhalation QID 30 days ipratropium-albuterol 20-100 mcg/actuation (Combivent Respimat) 1 puff inhalation Q6H lancets (TRUEplus Lancets) As directed linagliptin 5 mg PO DAILY lisinopril-hydrochlorothiazide 20-12.5 mg 1 tab PO DAILY metformin 1,000 mg PO BEDTIME mirabegron ER (Myrbetriq) 50 mg PO DAILY montelukast (Singulair) 10 mg PO BEDTIME 90 days nebulizers As directed nicotine 1 patch transdermal DAILY 28 days nicotine 1 patch transdermal DAILY 28 days nicotine 1 patch transdermal DAILY 28 days omeprazole 40 mg PO DAILY prednisone 10 mg PO DAILY 30 days roflumilast (Daliresp) 500 mcg PO DAILY 30 days rosuvastatin 40 mg PO BEDTIME sertraline 150 mg PO DAILY HPI Comments Details: 12/16/2024Lianna is a 73-year-old female who has been diagnosed with superficial urothelial carcinoma status post resection and bladder installations she is here for surveillance cystoscopy. History of Present Illness The patient is a 73-year-old female presenting for surveillance cystoscopy following a diagnosis of superficial urothelial carcinoma. She has a history of superficial urothelial carcinoma, for which she underwent resection and bladder installations. During the current visit, small bladder lesions were identified, which are recurrent in nature. The patient has been advised to cease smoking to prevent recurrence of these lesions. Results - Cystoscopy findings: Small papillary lesions on the dome and right posterior lateral wall of the bladder Plan 1. Superficial Urothelial Carcinoma - Schedule cystoscopy with bladder biopsies and fulguration as an outpatient procedure. - Advise cessation of smoking to prevent recurrence of bladder lesions. - Send urine for cytology to assess for malignant cells. 07/19/24--Carole is status post cystoscopy transurethral resection bladder tumors on 07/06/24. Her daughter is present. In review of pathology result it notes low-grade papillary urothelial carcinoma noninvasive muscularis propria present. Although the tissue results are low-grade because of the multiple tumors I am recommending further treatment with chemotherapy bladder installations. Path--07/06/24---Low-grade papillary urothelial carcinoma, noninvasive. -Muscularis propria present. History of Present Illness The patient is a 73-year-old female presenting for follow-up management of low-grade papillary urothelial carcinoma. She underwent cystoscopy and transurethral resection of bladder tumors on 07/06/2024, revealing low-grade papillary carcinoma that was noninvasive into the muscular layer. The pathology findings showed several small tumors located in different bladder areas. This superficial carcinoma did not penetrate the bladder muscle, though multiple sites of potential new growths necessitate further intervention. Bladder instillations for intravesical chemotherapy have been proposed as a treatment to address these multiple sites. The patient has experienced no significant urinary symptoms such as incontinence or frequency since the surgery. Her postoperative course appears stable. Urinary Symptoms Review - No significant increase in urinary frequency post-procedure - No current incontinence issues reported - No presence of urgency or nocturia - No dysuria noted post-procedure Results - 07/06/24-Pathology: Low-grade papillary urothelial carcinoma, noninvasive muscularis propria present 04/12/2024--Carole is here for office cystoscopy. History of bladder cancer. CT urogram is pending. Urine cytology 172- for malignant cells. Will repeat urine cytology Cystoscopy findings: greater than 2 papillary bladder tumors, left lat wall, posterior wall. Patient will need Pulmonary clearance prior. 02/23/2024--Carole is a 73-year-old past medical history diabetes history of nicotine use, was seen by Dr. Romeo Cazares III, in the past and diagnosed with bladder cancer review of her chart notes a pathology from 08/18/2018 left lateral wall resected tissue papillary urothelial carcinoma low-grade foci of high-grade noninvasive, muscularis propria present in specimen. She complains of seeing blood in the urine and burning with urination. Urine cytology 09/02/22--few atypical urothelial cells. Comorbidity nicotine use. [facility] Medical History Bladder mass Personal history of nicotine dependence Osteopenia Bladder cancer (~2018) Hypertension Diabetes mellitus Asthma-COPD overlap syndrome JIMBO (obstructive sleep apnea) Nicotine dependence, cigarettes, uncomplicated Bilateral anterior knee pain Surgical History History of transurethral resection of bladder tumor (TURBT) History of esophagogastroduodenoscopy (EGD) History of colonoscopy Social History Household Members: None Housing: Apartment Are you a primary care associate to a significant other at home: No Do you presently have visiting nurse or other home services: Yes (CRITICAL CARE CLINICAL NURSE SPECIALIST (daughter)) Patient Tobacco Use Status: Current everyday Tobacco user Tobacco use type: Cigarette Cigarettes Per Day: 1 Years Smoked: (onset 15yr,s 1/2-1ppd x 50yrs, 35pyh, quit 2020) service: No Current occupational status: retired and disabled 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 Review of Systems Const All systems reviewed & are unremarkable except as noted in HPI and below Reports no additional complaints Eyes Reports no additional complaints ENT Reports no additional complaints Card Reports no additional complaints Resp Reports no additional complaints GI Reports no additional complaints Reports as per HPI Musc Reports no additional complaints Skin/Breast Reports system reviewed and no additional complaints, except as documented Neuro Reports no additional complaints Psych Reports no additional complaints Endo Reports no additional complaints Kiran/Lymph Reports no additional complaints Aller/Immun Reports no additional complaints Office Procedures Cystoscopy Consent Discussed risk and benefit or proposed procedure with the patient. Information consent for procedure given to the patient. Discussed technical aspects, risks, benefits and alternatives in full. Addressed all of the patient's questions and concerns regarding the procedure. The patient demonstrated knowledge and understanding. They wish to proceed with this procedure. Preparation The patient was prepped in the usual manner. A associate embalmer/funeral director was present and in the room. Genitalia was prepped with betadine solution in a sterile manner. Lidocaine Jelly 2% was placed into the urethra and 16Fr flexible Olympus cystoscope was inserted into the meatus after adequate lubrication. [id number] DISPOSABLE SCOPE URO-G FLEXIBLE SCOPE Procedure code (CPT) selection complete Office Meds lidocaine HCl 2 % mucosal jelly in applicator Performing Provider: Abran Hayes MD Performing Location: [facility] Administered by: Thea Leong RN on 12/16/24 14:02 Dose Route Admin Location Dispensed Lot Number Expiration Date NDC Veterinary Epidemiologist 10 mL intra-urethral 20 mL ciprofloxacin HCl 500 mg tablet Performing Provider: Abran Hayes MD Performing Location: [facility] Administered by: Thea Leong RN on 12/16/24 14:02 Dose Route Admin Location Dispensed Lot Number Expiration Date NDC Veterinary Epidemiologist 500 mg PO 1 tab phenazopyridine 200 mg tablet Performing Provider: Abran Hayes MD Performing Location: [facility] Administered by: Thea Leong RN on 12/16/24 14:02 Dose Route Admin Location Dispensed Lot Number Expiration Date NDC Veterinary Epidemiologist 200 mg PO 1 tab Assessment & Plan Assessment & Plan (1) Asthma-COPD overlap syndrome: Code(s): J44.9 - Chronic obstructive pulmonary disease, unspecified Category: Medical (2) JIMBO (obstructive sleep apnea): Code(s): G47.33 - Obstructive sleep apnea (adult) (pediatric) Category: Medical (3) Bladder cancer: Onset Date: ~2018 Comment: (papillary urothelial carcinoma - non-invasive low grade - s/p TURBT 08/2018, 07/06/24 Code(s): C67.9 - Malignant neoplasm of bladder, unspecified Category: Medical (4) Nicotine dependence: Code(s): F17.200 - Nicotine dependence, unspecified, uncomplicated Category: Medical Plan Plan 1. Superficial Urothelial Carcinoma - Schedule cystoscopy with bladder biopsies and fulguration as an outpatient procedure. - Advise cessation of smoking to prevent recurrence of bladder lesions. - Send urine for cytology to assess for malignant cells. - pt is followed by Pulmonary Orders: Orders AMB Cystoscopy Today C67.9 - Malignant neoplasm of bladder, unspecified Patient Instructions: The patient had an opportunity to ask questions regarding treatment plan. The patient expressed understanding and agreement with the above treatment plan. The patient is aware they should contact our office by phone for worsening of their current condition or the appearance of new symptoms. Compliance is encouraged with any medications and followup testing that is ordered. It is a privilege to be allowed the opportunity to participate in the urologic care of your patient. If you have any questions or concerns regarding treatment for the above conditions please do not hesitate to contact me. The office telephone contact is [phone]. This note is constructed in part using voice recognition software. While every effort has been made to ensure accuracy radio time buyer errors may have been included. Yours sincerely, Abran Hayes MD Scribe Plan - Not visible on output: Patient was informed and verbally consented to the use of an ambient scribe for clinic note documentation during this visit. Coding Level of Care Code Est Pt Level 4 (62348) Complex EM visit Add On G2211 Diagnoses Asthma-COPD overlap syndrome J44.9 JIMBO (obstructive sleep apnea) G47.33 Bladder cancer C67.9 Nicotine dependence F17.200 CPT Codes Cystoscopy - CPT: 74571-[id number] ([id number])
--- OUTSIDE RECORDS SUMMARY | 2024-12-16 16:11 | XMS_ITS | Encounter Summary ---
Author Organization [employer] Address [address] [place] [address] Care Team Providers Care Mortgage Consultant Name Role Phone Flower High MD Primary Care Pro vider Reason for Visit * Reason Comments Med Refill Encounter Details Date Type Department Care Team (Late st Contact Info) Description 04/07/2024 Refill [facility] MEDICINE [address] [place] [address] Meredith Srinivasan MD 230 [place], [place] [phone] Chronic midline low back pain without sciatica [...] Description 01/04/2025 3:00 PM EST Clinical Support [facility] MED & PEDS [address] [place] [address] Cori Dave, RN 505 [place] [address] 02/25/2025 11:30 AM EST Office Visit [facility] MEDICINE [address] [place] [address] Flower High MD 230 [place] [address] 04/27/2025 3:00 PM EDT Office Visit [facility] OPTOMETRY [address] [place] [address] Mabel Fraire, CECILIA 230 [place] [address] documented as of this encounter Visit Diagnoses Diagnosis Chronic midline low back pain without sciatica documented in this encounter Additional Health Concerns Assessment Noted Time PHQ-9 Depression Total Score: 20 024 8:46 AM EDT documented as of this encounter Care Teams Mortgage Consultant Relationship Specialty Start Date End Date Flower High MD [address] [place] [address] PCP - General Internal Medicine 07/19/22 Altranais 06/08/24 documented as of this encounter
--- OUTSIDE RECORDS SUMMARY | 2024-12-16 16:11 | XMS_ITS | Encounter Summary ---
Author Organization [employer] Address [address] [facility] 7t [place] [address] Care Team Providers Care Ob/Gyn Physician Name Role Phone Flower High MD Primary Care Pro vider Encounter Details Date Type Department Care Team (Late st Contact Info) Description 03/05/2023 Orders Only [facility] [address] [place] [address] Flower High MD 230 [place] [address] Social History Tobacco Use Types Packs/Day Years [...] Description 01/04/2025 3:00 PM EST Clinical Support [facility] CHC MED & PEDS [address] [place] [address] Cori Dave RN 505 [place] [address] 02/25/2025 11:30 AM EST Office Visit [facility] MEDICINE 230 [place] [address] Flower High MD 230 [place] [address] 04/27/2025 3:00 PM EDT Office Visit [facility] OPTOMETRY [address] [place] [address] Juno, Mabel, OD 230 [place] [address] documented as of this encounter Visit Diagnoses Not on filedocumented in this encounter Additional Health Concerns Assessment Noted Time PHQ-9 Depression Total Score: 0 01/07/20 23 1:19 PM EST documented as of this encounter Care Teams Ob/Gyn Physician Relationship Specialty Start Date End Date Flower High MD [address] [place] [address] PCP - General Internal Medicine 07/19/22 Hermannranais 06/08/24 documented as of this encounter
--- OUTSIDE RECORDS SUMMARY | 2024-12-16 16:11 | XMS_ITS | Encounter Summary ---
Author Organization [employer] Address [address] [facility] 7 [place] [address] Care Team Providers Care Double Reamer Operator Name Role Phone Flower High MD Primary Care Pro vider Reason for Visit * Reason Comments Med Refill Encounter Details Date Type Department Care Team ([facility] st Contact Info) Description 11/10/2024 Refill [facility] MEDICINE [address] [place] [address] Flower High MD 230 [place], [place] [phone] Type 2 diabetes mellitus without complication, with long-term current use of insulin ([facility]) Social History Tobacco Use Types [...] the past 12 months, has t he [employer], gas, oil or water [employer] threatened to shut off services in your [...] Description 01/04/2025 3:00 PM EST Clinical Support [facility] CHC MED & PEDS [address] [place] [address] Cori Dave, LAZARO 505 [place] [address] 02/25/2025 11:30 AM EST Office Visit [facility] MEDICINE [address] [place] [address] Flower High MD 230 [place] [address] 04/27/2025 3:00 PM EDT Office Visit [facility] OPTOMETRY [address] [place] [address] Mabel Fraire, OD 230 [place] [address] documented as of this encounter Visit Diagnoses Diagnosis Type 2 diabetes mellitus without complication, with long-term current use of insulin (HCC) documented in this encounter Additional Health Concerns Assessment Noted Time PHQ-9 Depression Total Score: 0 09/02/19 25 2:30 PM EDT documented as of this encounter Care Teams Double Reamer Operator Relationship Specialty Start Date End Date Flower High MD [address] [place] [id number] PCP - General Internal Medicine 07/19/22 Altranais 06/08/24 documented as of this encounter
--- OUTSIDE RECORDS SUMMARY | 2024-12-16 16:11 | XMS_ITS | Encounter Summary ---
Author Organization [employer] Address [address] 7[address] [place] [address] Care Team Providers Care Meat Selector Name Role Phone Flower High MD Primary Care Pro vider Reason for Visit * Reason Onset Date Comments Med Refill No Show 09/17/2022 Encounter Details Date Type Department Care Team (Late st Contact Info) Description 09/17/2022 Refill [facility] MEDICINE [address] [place] [address] Claudette Lorenzo, SOFTWARE SECURITY CONSULTANT [address] [place] [address] Allergic rhinitis, unspecified seasonality, unspecified trigger Social [...] Description 01/04/2025 3:00 PM EST Clinical Support [facility] CHC MED & PEDS [address] [place] [address] Cori Dave, LAZARO 505 [place] [address] 02/25/2025 11:30 AM EST Office Visit [facility] MEDICINE 230 [place] [address] Flower High MD 230 [place] [address] 04/27/2025 3:00 PM EDT Office Visit [facility] OPTOMETRY [address] [place] [address] Mabel Fraire, OD 230 [place] [address] documented as of this encounter Visit Diagnoses Diagnosis Allergic rhinitis, unspecified seasonality, unspecified trigger documented in this encounter Care Teams Meat Selector Relationship Specialty Start Date End Date Flower High MD [address] [place] [address] PCP - General Internal Medicine 07/19/22 Altranais 06/08/24 documented as of this encounter
--- OUTSIDE RECORDS SUMMARY | 2024-12-16 16:11 | XMS_ITS | Encounter Summary ---
Author Organization [employer] Address [address] [facility] [facility] [address] [place] [address] Care Team Providers Care Electronic Engineering Technician Name Role Phone Flower High MD Primary Care Pro vider Encounter Details Date Type Department Care Team (Late st Contact Info) Description 05/20/2024 Orders Only [facility] MEDICINE 230 [place], [place] [phone] Flower High MD 230 [place], [place] [phone] Type 2 diabetes mellitus without complication, with long-term current use of insulin ([facility]) Social History Tobacco Use Types [...] the past 12 months, has t he [employer], gas, oil or water company threatened to [...] Description 01/04/2025 3:00 PM EST Clinical Support [facility] CH[facility] MED & PEDS 505 [place] [address] Cori Dave, LAZARO 505 [place] [address] 02/25/2025 11:30 AM EST Office Visit [facility] MEDICINE 230 [place] [address] Flower High MD 230 [place] [address] 04/27/2025 3:00 PM EDT Office Visit [facility] OPTOMETRY [address] [place] [address] Mabel Fraire, CECILIA 230 [place] [address] documented as of this encounter Visit Diagnoses Diagnosis Type 2 diabetes mellitus without complication, with long-term current use of insulin (HCC) documented in this encounter Additional Health Concerns Assessment Noted Time PHQ-9 Depression Total Score: 20 024 8:46 AM EDT documented as of this encounter Care Teams Electronic Engineering Technician Relationship Specialty Start Date End Date Flower High MD [address] [place] [address] PCP - General Internal Medicine 07/19/22 Altranais 06/08/24 documented as of this encounter
--- OUTSIDE RECORDS SUMMARY | 2024-12-16 16:11 | XMS_ITS | Encounter Summary ---
Author Organization [employer] Address [address] [facility] [address] [place] [address] Care Team Providers Care Iron Bender Name Role Phone Flower High MD Primary Care Pro vider Reason for Visit * Reason Comments Med Refill Encounter Details Date Type Department Care Team (Late st Contact Info) Description 11/02/2024 Refill [facility] [address] [place] [address] Frida Smith DO 230 [place] [address] Social History Tobacco Use Types Packs/Day Years [...] Description 01/04/2025 3:00 PM EST Clinical Support [facility] CH[facility] MED & PEDS [address] [place] [address] Cori Dave, LAZARO 505 [place] [address] 02/25/2025 11:30 AM EST Office Visit [facility] MED[facility] [address] [place] [address] Flower High MD 230 [place] [address] 04/27/2025 3:00 PM EDT Office Visit [facility] OPTOMETRY [address] [place] [address] Mabel Fraire, OD 230 [place] [address] documented as of this encounter Visit Diagnoses Not on filedocumented in this encounter Additional Health Concerns Assessment Noted Time PHQ-9 Depression Total Score: 0 09/02/19 2:30 PM EDT documented as of this encounter Care Teams Iron Bender Relationship Specialty Start Date End Date Flower High MD [address] [place] [address] PCP - General Internal Medicine 07/19/22 Altranais 06/08/24 documented as of this encounter
--- OUTSIDE RECORDS SUMMARY | 2024-12-16 16:11 | XMS_ITS | Encounter Summary ---
Author Organization [employer] Address [address] [place] [address] Care Team Providers Care Medical Examiner Name Role Phone Flower High MD Primary Care Pro vider Encounter Details Date Type Department Care Team (Late st Contact Info) Description 12/16/2024 Refill [facility] [address] [place] [address] Flower High MD 230 [place], [place] [phone] Social History Tobacco Use Types Packs/Day Years [...] Description 01/04/2025 3:00 PM EST Clinical Support [facility] MED [facility] PEDS 505 [place] [address] Cori Dave, LAZARO 505 [place] [address] 02/25/2025 11:30 AM EST Office Visit [facility] MED[facility] [address] [place] [address] Flower High MD 230 [place] [address] 04/27/2025 3:00 PM EDT Office Visit [facility] OPTOMETRY [address] [place] [address] Mabel Fraire OD 230 [place] [address] documented as of this encounter Visit Diagnoses Not on filedocumented in this encounter Additional Health Concerns Assessment Noted Time PHQ-9 Depression Total Score: 0 09/02/19 25 2:30 PM EDT documented as of this encounter Care Teams Medical Examiner Relationship Specialty Start Date End Date Flower High MD [address] [place] [address] PCP - General Internal Medicine 07/19/22 Altranais 06/08/24 documented as of this encounter
--- OUTSIDE RECORDS SUMMARY | 2024-12-16 16:11 | XMS_ITS | Encounter Summary ---
Author Organization [employer] Address [address] [place] [address] [address] [address] Care Team Providers Care Straddle Truck Operator Name Role Phone Claudette Lorenzo RADHA Primary Care Provider [phone] Flower High MD Primary Care Pro vider Encounter Details Date Type Department Care Team (Late st Contact Info) Description 03/18/2022 Orders Only [facility] MEDICINE [address] [place] [address] [phone] Karlene Dow LPN Social History Tobacco Use [...] Description 01/04/2025 3:00 PM EST Clinical Support [facility] CHC MED & PEDS [address] [place], [place] [phone] Cori Dave, LAZARO 505 [place], [place] [phone] 02/25/2025 11:30 AM EST Office Visit [facility] MEDICINE [address] [place] [phone] Flower High MD 230 [place], [place] [phone] 04/27/2025 3:00 PM EDT Office Visit [facility] OPTOMETRY [address] [place], [place] [phone] Mabel Fraire, OD 230 [place], [place] [phone] documented as of this encounter Visit Diagnoses Not on filedocumented in this encounter Care Teams Straddle Truck Operator Relationship Specialty Start Date End Date Claudette Lorenzo FNP [address] [place], [place] [phone] PCP - General Family Medicine 10/11/21 07/18/22 Flower High MD 230 [place], [place] [phone] PCP - General Internal Medicine 07/19/22 Altranais 06/08/24 documented as of this encounter
--- OUTSIDE RECORDS SUMMARY | 2024-12-16 16:11 | XMS_ITS | Encounter Summary ---
Author Organization [employer] Address [address] [facility] [address] [place] [address] Care Team Providers Care Soda Worker Name Role Phone Flower High MD Primary Care Pro vider Reason for Visit * Reason Onset Date Comments feb recall 12/13/2024 Encounter Details Date Type Department Care Team ([facility] st Contact Info) Description 12/13/2024 Telephone [facility] MEDICINE [address] [place] [address] Flower High MD [address] [place], [place] [phone] feb recall Social History Tobacco Use Types Packs/Day Years [...] Telephone Encounter - Angelica Rod MA - 12/13/2024 10:41 AM EDT Telephone call to patient to schedule a recall appointment. No answer, Left voicemail to return call to clinic.. Recall letter sent. Visit type: Follow Up Appointment notes: Chronic conditions Month due: February With: Gerry Please schedule appointment above if patient returns call documented in this encounter Plan of Treatment Upcoming Encounters Date Type Department Care Team ([facility] st Contact Info) Description 01/04/2025 3:00 PM EST Clinical Support [facility] CHC MED & PEDS [address] [place] [address] Cori Dave, LAZARO [address] [place] [address] 02/25/2025 11:30 AM EST Office Visit [facility] MEDICINE [address] [place] [address] Flower High MD [address] [place], [place] [phone] 04/27/2025 3:00 PM EDT Office Visit [facility] OPTOMETRY [address] [place], [place] [phone] Juno, Mabel, OD [address] [place] [address] documented as of this encounter Visit Diagnoses Not on filedocumented in this encounter Additional Health Concerns Assessment Noted Time PHQ-9 Depression Total Score: 0 09/02/19 2:30 PM EDT documented as of this encounter Care Teams Soda Worker Relationship Specialty Start Date End Date Flower High MD [address] [place] [address] PCP - General Internal Medicine 07/19/22 [facility] 06/08/24 documented as of this encounter
--- OUTSIDE RECORDS SUMMARY | 2024-12-16 16:11 | XMS_ITS | Encounter Summary ---
Author Organization [employer] Address [address] [facility] 7[address] [place] [address] Care Team Providers Care Foot Caster Name Role Phone Flower High MD Primary Care Pro vider Reason for Visit * Reason Comments Med Refill Encounter Details Date Type Department Care Team ([facility] st Contact Info) Description 05/30/2023 Refill [facility] MEDICINE [address] [place] [address] Flower High MD [address] [place] [address] Chronic midline low back pain without sciatica [...] Description 01/04/2025 3:00 PM EST Clinical Support [facility] CHC MED & PEDS [address] [place] [address] Cori Dave, LAZARO [address] [place] [address] 02/25/2025 11:30 AM EST Office Visit [facility] MEDICINE [address] [place] [address] Flower High MD [address] [place] [address] 04/27/2025 3:00 PM EDT Office Visit [facility] OPTOMETRY [address] [place] [address] Mabel Fraire, CECILIA [address] [place] [address] documented as of this encounter Visit Diagnoses Diagnosis Chronic midline low back pain without sciatica documented in this encounter Additional Health Concerns Assessment Noted Time PHQ-9 Depression Total Score: 0 01/07/20 23 1:19 PM EST documented as of this encounter Care Teams Foot Caster Relationship Specialty Start Date End Date Flower High MD [address] [place] [id number] PCP - General Internal Medicine 07/19/22 [facility] 06/08/24 documented as of this encounter
--- OUTSIDE RECORDS SUMMARY | 2024-12-16 16:11 | XMS_ITS | Encounter Summary ---
Author Organization [employer] Address [address] [place] [address] [address] Care Team Providers Care Imaging Services Director Name Role Phone Claudette Lorenzo RADHA Primary Care Provider [phone] Flower High MD Primary Care Pro vider Encounter Details Date Type Department Care Team (Late st Contact Info) Description 05/06/2022 Orders Only [facility] MEDICINE [address] [place] [phone] Karlene Dow LPN Social History Tobacco Use [...] [facility] CHC MED & PEDS [address] [place], [place] [phone] Cori Dave, LAZARO [address] [place], [place] [phone] 02/25/2025 11:30 AM EST Office Visit [facility] MEDICINE [address] [place] [phone] Flower High MD [address] [place], [place] [phone] 04/27/2025 3:00 PM EDT Office Visit C OPTOMETRY [address] [place], [place] [phone] Mabel Fraire, OD [address] [place], [place] [phone] documented as of this encounter Visit Diagnoses Not on filedocumented in this encounter Care Teams Imaging Services Director Relationship Specialty Start Date End Date Claudette Lorenzo FNP [address] [place], [place] [phone] PCP - General Family Medicine 10/11/21 07/18/22 Flower High MD [address] [place], [place] [phone] PCP - General Internal Medicine 07/19/22 [facility] 06/08/24 documented as of this encounter
--- OUTSIDE RECORDS SUMMARY | 2024-12-16 16:11 | XMS_ITS | Encounter Summary ---
Author Organization [employer] Address [address] [facility] 7 [place] [address] Care Team Providers Care Stitchdowns Toe Former Name Role Phone Flower High MD Primary Care Pro vider Reason for Visit * Reason Comments Med Refill Encounter Details Date Type Department Care Team ([facility] st Contact Info) Description 01/09/2023 Refill [facility] MEDICINE [address] [place] [address] Flower High MD [address] [place], [place] [phone] Type 2 diabetes mellitus without complication, unspecified whether medical terminologist insulin use ([facility]) Social History Tobacco Use Types [...] the past 12 months, has t he walkby, [employer], oil or water [employer] threatened to shut off services in your [...] Description 01/04/2025 3:00 PM EST Clinical Support [facility] CHC MED & PEDS [address] [place] [address] Cori Dave, LAZARO [address] [place] [address] 02/25/2025 11:30 AM EST Office Visit [facility] MEDICINE [address] [place] [address] Flower High MD [address] [place] [address] 04/27/2025 3:00 PM EDT Office Visit [facility] OPTOMETRY [address] [place], [place] [phone] Mabel Fraire OD [address] [place] [address] documented as of this encounter Visit Diagnoses Diagnosis Type 2 diabetes mellitus without complication, unspecified whether medical terminologist insulin use documented in this encounter Additional Health Concerns Assessment Noted Time PHQ-9 Depression Total Score: 0 01/07/20 23 1:19 PM EST documented as of this encounter Care Teams Stitchdowns Toe Former Relationship Specialty Start Date End Date Flower High MD [address] [place] [id number] PCP - General Internal Medicine 07/19/22 Altr[facility] 06/08/24 documented as of this encounter
--- OUTSIDE RECORDS SUMMARY | 2024-12-16 16:11 | XMS_ITS | Encounter Summary ---
Author Organization [employer] Address [address] [facility] [address] [place] [address] Care Team Providers Care Web Production Designer Name Role Phone Flower High MD Primary Care Pro vider Reason for Visit * Reason Comments Med Refill Encounter Details Date Type Department Care Team ([facility] st Contact Info) Description 09/27/2024 Refill [facility] MEDICINE [address] [place] [address] J Carlos Sin MD [address] [place] [address] Social History Tobacco Use Types Packs/Day Years [...] 01/04/2025 3:00 PM EST Clinical Support [facility] CHC MED & PEDS [address] [place] [address] Cori Dave, LAZARO [address] [place] [address] 02/25/2025 11:30 AM EST Office Visit [facility] MEDICINE [address] [place] [address] Flower High MD [address] [place] [address] 04/27/2025 3:00 PM EDT Office Visit [facility] OPTOMETRY [address] [place], [place] [phone] Mabel Fraire, CECILIA [address] [place] [address] documented as of this encounter Visit Diagnoses Not on filedocumented in this encounter Additional Health Concerns Assessment Noted Time PHQ-9 Depression Total Score: 0 09/02/19 2:30 PM EDT documented as of this encounter Care Teams Web Production Designer Relationship Specialty Start Date End Date Flower High MD [address] [place] [phone] PCP - General Internal Medicine 07/19/22 [facility] 06/08/24 documented as of this encounter
--- OUTSIDE RECORDS SUMMARY | 2024-12-16 16:12 | XMS_ITS | Clinical Summary ---
Author Organization [employer] Address [address] [facility] [address] [place] [address] Care Team Providers Care Rigging Helper Name Role Phone Flower High MD [...] nebulizer solutionIndicati ons:COPD with acute exacerbation (CMS/HCC) ([facility]) Take 3 mL (1.25 mg) by nebulization every 6 (six) hours if needed for wheezing. 75 mL 3 024 Active Blood Glucose Monitoring Suppl (FreeStyle Cranks Lite) w/Device kitIndications:T ype 2 diabetes mellitus without complication, with long-term current use of insulin ([facility]) Use to test blood sugar bid [...] to underlying condition w oth circulatory comp ([facility]) Test blood sugar q 8 hours 100 each 12 024 Active pen needle 32G x 4 mm miscIndications: Type 2 diabetes mellitus without complication, with long-term current use of insulin ([facility]) Use as instructed 30 each 12 024 Active Easy Touch Lancets 33G/Twist misc TEST BLOOD SUGAR 3 TIMES A DAY DIRECTED 100 each 11 024 Active Continuous Glucose Skin Care Therapist (FreeStyle Erinn 3 Peever) deviceIndication s:Type 2 diabetes mellitus without complication, with long-term current use of insulin ([facility]) 1 each 3 times daily. As directed 1 each 024 Active Continuous Glucose Sensor (FreeStyle Erinn 3 Plus Sensor) miscIndications: Type 2 diabetes mellitus without complication, with long-term current use of insulin ([facility]) USE DIRECTED TO TEST BLOOD SUGAR, CHANGE [...] complication, with long-term current use of insulin ([facility]) TEST BLOOD SUGAR THREE TIMES DAILY DIRECTED 100 strip 11 025 Active Ventolin HFA 108 (90 Base) MCG/ACT inhaler Inhale 1-2 puffs every 4 (four) hours if needed for shortness of breath or wheezing. 18 g 2 025 Active Spacer/Aero-Hold ing Chambers (OptiChamber Dennise) misc 1 each every 4 (four) hours if needed (asthma). 1 each 025 Active Alcohol Swabs (Alcohol Prep) 70 % pads USE DIRECTED TO TEST BLOOD SUGAR THREE TIMES DAILY DIRECTED 100 each 5 025 Active Aspirin Low Dose 81 MG EC tabletIndication s:Type 2 diabetes mellitus without complications (HCC) TAKE 1 TABLET BY MOUTH EVERY EVENING 90 tablet 1 025 Active cetirizine (ZyrTEC) 10 MG tablet TAKE 1 TABLET BY MOUTH EVERY MORNING 90 tablet 025 Active Diclofenac Sodium 1 % gel Apply 2 g topically if needed in the morning, at noon, in the evening, and at bedtime (pain). 150 g 3 025 Active rosuvastatin (Crestor) 40 MG tablet TAKE 1 TABLET BY MOUTH AT BEDTIME 90 tablet 1 025 Active budesonide (Pulmicort) 0.5 MG/2ML nebulizer solution INHALE 1 AMPULE USING A NEBULIZER TWICE DAILY Active insulin lispro (HumaLOG) 100 UNIT/ML injection SS ( CBG 150-200: 4u, 201-250: 6u, 251-300: 8u, 301-350: 10u 15 mL 2 025 Active lidocaine (Lidoderm) 5 % patchIndications :Chronic bilateral low back pain without sciatica Apply 1 patch topically Once per day. Remove & discard patch within 12 hours or as directed by . 30 patch 2 Active Trelegy Ellipta 200-62.5-25 MCG/ACT aerosol powder Take 1 puff by mouth in the morning. 1 each 3 025 Active ezetimibe (Zetia) 10 MG tablet Take 1 tablet (10 mg) by mouth in the morning. 90 tablet 1 025 Active metFORMIN (Glucophage) 500 MG tablet TAKE 1 TABLET BY MOUTH EVERY MORNING and TAKE 2 TABLETS BY MOUTH EVERY DAY IN THE EVENING 270 tablet 025 Active pantoprazole (ProtoNix) 40 MG EC tablet TAKE 1 TABLET BY MOUTH EVERY MORNING 90 tablet 025 Active cyanocobalamin (Vitamin B-12) 1000 MCG tabletIndication s:Routine health maintenance TAKE 1 TABLET BY MOUTH EVERY EVENING 90 tablet 025 Active lisinopril-hydro CHLOROthiazide 20-12.5 MG tabletIndication s:Primary hypertension TAKE 1 TABLET BY MOUTH EVERY MORNING 90 tablet Active Dulaglutide (Trulicity) 1.5 MG/0.5ML solution auto-injectorInd ications:Type 2 diabetes mellitus without complication, with long-term current use of insulin ([facility]) Inject 1.5 mg under the skin 1 (one) time per week. 0.5 mL 2 Active insulin glargine (Lantus) 100 UNIT/ML injectionIndicat ions:Type 2 diabetes mellitus without complication, with long-term current use of insulin (HCC) Inject 22 Units under the skin at bedtime. 10 mL 2 025 2025 Active famotidine (Pepcid) 20 MG tablet Take 1 tablet (20 mg) by mouth if needed at bedtime for heartburn. 90 tablet 025 2025 Active Magnesium 400 MG capsule Take 1 tablet by mouth Once per day. Lets keep this med out of his Medbox 90 capsule Active gabapentin (Neurontin) 300 MG capsuleIndicatio ns:Chronic midline low back pain without sciatica TAKE 1 CAPSULE BY MOUTH THREE TIMES DAILY IN THE MORNING, EVENING, AND BEDTIME 90 capsule 1 Active naloxone (Narcan) 4 mg/0.1 mL nasal spray FOR SUSPECTED OPIOID OVERDOSE. SPRAY 0.1mL IN ONE NOSTRIL. REPEAT IN ALTERNATE NOSTRIL 2-3 MINUTES IF NEEDED. SEEK MEDICAL ATTENTION IMMEDIATELY EVEN IF PATIENT RESPONDS. 2 each 2 Active acetaminophen (Tylenol 8 Hour) 650 MG ER tablet TAKE 1 TABLET BY MOUTH EVERY 8 HOURS NEEDED FOR MILD PAIN 60 tablet 1 Active Oyster Shell Calcium 500 MG tablet TAKE 1 TABLET BY MOUTH TWICE DAILY IN THE MORNING AND IN THE EVENING WITH MEALS 180 tablet 1 Active D3 Super Strength 50 MCG (2000 UT) capsule TAKE 1 CAPSULE BY MOUTH EVERY MORNING 90 capsule 1 Active Oyster Shell Calcium 500 MG tablet TAKE 1 TABLET BY MOUTH TWICE DAILY IN THE MORNING AND IN THE EVENING WITH MEALS 180 tablet 1 025 2024 Discontinued cholecalciferol (D3 Super Strength) 50 MCG (2000 UT) capsule TAKE 1 CAPSULE BY MOUTH EVERY MORNING 90 capsule 025 2024 Discontinued oxyCODONE (Roxicodone) 5 MG immediate release tabletIndication s:Chronic bilateral low back pain without sciatica TAKE 1 TABLET BY MOUTH EVERY TWELVE HOURS NEEDED FOR SEVERE PAIN 28 tablet 025 2024 Active Problems Problem Noted Date Diagnosed Date Type 2 diabetes mellitus wit h retinopathy, with long-term current use of insulin 12/16/2024 Fatigue 09/03/2024 Chest pain 09/03/2024 Lower back [...] -Will monitor CBC today and refer to wool batting worker at next apt (anemia) Abnormal uterine bleeding 11/13/2022 Assessment & Plan (11/13/2022 7:01 AM EDT): Pt was seen at the [facility] last mo for AUB. Already referred by provider to optimization specialist. Not gone yet. gave today information to [...] pt done in 2020 at [facility]-- ---- requested today record to Abiola [...] pt done in 2020 at [facility]-- ---- requested today record to Abiola [...] of bladder ca-thinks saw last oncologist at [place] like 5 y ago -unsure if needed [...] of bladder ca-thinks saw last oncologist at [place] like 5 y ago -unsure if needed [...] -continue care w psychiatrist and PT-seems f [facility] clinic in this building -psych meds refilled by specialist Assessment & Plan (08/19/2022 5:41 PM EDT): Pt w hx of depression/anxiety and panic attacks Denies SI -continue care w psychiatrist and PT-seems f w [facility] clinic in this building -psych meds refilled by specialist Allergic rhinitis 02/03/2015 Assessment & Plan (11/13/2022 [...] Asthma/COPD Overlap syndrome Pt is following w crusher and binder operator Jitendra Morales -last note obtained on 02/2022 [...] med -advised pt to f w her crusher and binder operator and I printed at last apt CT chest done in 2019 with abnormal findings -not mentioned in last pulm visit note from 02/2022 -pt will f w specialist about need to repeat image if not done before Assessment & Plan (08/19/2022 6:08 PM EDT): Asthma/COPD Overlap syndrome Pt is following w crusher and binder operator Jitendra Morales -last note obtained on 02/2022 [...] ED -advised pt to f w her crusher and binder operator and I printed today CT chest done [...] mild JIMBO per pulm note -f w crusher and binder operator who referred back x sleep studies -pd to have test done -DELISA Luu gave info to pt to call to reschedule apt Assessment & Plan (08/19/2022 5:30 PM EDT): Pt has JIMBO-uses CPAP at night sleep study in 2018 : mild JIMBO per pulm note -f w crusher and binder operator who referred back x sleep studies -pd [...] Encounters Date Type Department Care Team Description 12/16/2024 Refill [facility] MEDICINE [address] [place] [address] Flower High MD 12/13/2024 Telephone [facility] MEDICINE [address] [place] [address] Flower High MD luz marina recall 12/07/2024 Telephone [facility] MEDICINE [address] [place] [address] Flower High MD Durable Medical Equipment ([employer]) 11/18/2024 Telephone [facility] CHC MED & PEDS [address] [place] [address] Cori Dave RN 11/18/2024 Refill [facility] MEDICINE [address] [place] [address] Flower High MD 11/17/2024 Telephone [facility] MED & PEDS [address] [place] [address] Cori Dave, RN Appointment Request 11/16/2024 Telephone [facility] MEDICINE [address] [place] [address] Flower High MD Prior Auth DME 11/15/2024 Refill [facility] WALK-IN CENTER [address] [place] [address] Frida Smith, DO 11/15/2024 Refill [facility] MEDICINE [address] [place] [address] Flower High MD Chronic bilateral low back pain without sciatica 11/14/2024 Refill [facility] MEDICINE [address] [place] [address] Flower High MD Chronic midline low back pain without sciatica 11/10/2024 Refill [facility] MEDICINE [address] [place] [address] Flower High MD Type 2 diabetes mellitus without complication, with long-term current use of insulin ([facility]) 11/02/2024 Refill [facility] WALK-IN CENTER [address] [place] [address] Frida Smith, DO 10/27/2024 Telephone [facility] MEDICINE [address] [place] [address] Flower High MD Durable Medical Equipment 10/27/2024 Telephone [facility] MED & PEDS [address] [place] [address] Cori Dave RN 10/26/2024 9:45 AM EDT Office Visit [facility] MEDICINE [address] [place] [phone] Flower High MD Osteopenia, unspecified location (Primary Dx); Type 2 diabetes mellitus without complication, with long-term current use of insulin ([facility]); Hypomagnesemia; Hypertension, unspecified type; Diabetes due to underlying condition w oth circulatory comp ([facility]); Gastroesophageal reflux disease, unspecified whether esophagitis present; Health care maintenance; Bladder CA in situ; Asthma-COPD overlap syndrome; Type 2 diabetes mellitus with retinopathy, with long-term current use of insulin, macular edema presence unspecified, unspecified laterality, unspecified retinopathy severity ([facility]) 10/26/2024 Results Follow-Up [facility] MEDICINE [address] [place] [address] Floewr High MD POCT Glucose, POCT HGB A1C, Albumin, Random Urine W/Creatinine, Additional followed-up results: 5 10/26/2024 Results Follow-Up [facility] [place] [address] Flower High MD POCT Hgb A1c, POCT Glucose, Magnesium 10/26/2024 Orders Only [facility] [place] [address] Flower High MD 10/26/2024 Orders Only GENERIC EXTERNAL DATA DEPARTMENT Provider, Generic External Data 10/26/2024 Refill [facility] [place] [address] Flower High MD Chronic bilateral low back pain without sciatica 10/26/2024 Travel 10/25/2024 Telephone [facility] [place] [address] Flower High MD chart prerp 10/23/2024 Travel 10/21/2024 Refill [facility] [place] [address] Flower High MD Primary hypertension 10/20/2024 Telephone [facility] [place] [address] Flower High MD Durable Medical Equipment 10/20/2024 Refill [facility] [place] [address] Flower High MD Routine health maintenance; Primary hypertension 09/28/2024 Telephone [facility] MED & PEDS [address] [place] [address] Cori Dave RN 09/27/2024 Results Follow-Up [facility] MEDICINE [address] [place] [address] Abdomen Pelvis w/ Contrast 09/27/2024 Refill [facility] MEDICINE [address] [place] [address] Flower High MD 09/27/2024 Refill [facility] MEDICINE [address] [place] [address] J Carlos Sin MD 09/25/2024 Orders Only [facility] External Provider, [facility] 09/22/2024 Refill [facility] MEDICINE [address] [place] [address] Flower High MD Chronic bilateral low back pain without sciatica 09/19/2024 Refill [facility] WALK-IN CENTER [address] [place] [address] Arnel Lawrence MD 09/19/2024 Refill [facility] MEDICINE [address] [place] [address] Flower High MD Chronic midline low back pain without sciatica from Last 3 Months Immunizations Immunization Administration [...] Description 01/04/2025 3:00 PM EST Clinical Support [facility] CHC MED & PEDS [address] [place] [address] Cori Dave, LAZARO [address] [place] [address] 02/25/2025 11:30 AM EST Office Visit [facility] MEDICINE [address] [place] [address] Flower High MD [address] [place] [address] 04/27/2025 3:00 PM EDT Office Visit [facility] OPTOMETRY [address] [place] [address] Mabel Fraire, CECILIA [address] [place] [address] Health Maintenance Due Date Last Done Comments CT Colonography 1952 Dental Prophylaxis 1952 FIT DNA/Cologuard 1952 FIT 1952 FOBT 1950 Sigmoidoscopy 1952 Dental X-Ray: Bitewings 03/30/2010 03/29/2009 Colonoscopy 06/16/2022 06/16/2012 Colorectal Cancer Screening 06/16/2022 Dental Oral Exam 10/17/2023 04/17/2023, , 07/03/2016 Diabetes: Foot Exam 09/28/2024 09/29/2023 COVID-19 Vaccine ( season) 2024 12/16/2023, 04/14/2023, 06/17/2022, Additional history exists Diabetes: Hemoglobin A1C 01/25/2025 025, 10/26/2024, 09/01/2024, Additional history exists Eye Exam 04/26/2025 04/26/2024, 04/17, 04/26/2024, Additional history exists Alcohol/Substance Use Screening 09/01/2025 09/01/2024 Depression Screening 09/01/2025 09/01/2024, 09/02/19 25 SDOH Screening 09/01/2025 09/01/2024 Diabetes: Urine Protein Screening 10/26/2025 10/26/2024, 05/20/2024, 05/10/2024, Additional history exists Lipid Panel 10/26/2025 10/26/2024, 04/18, 01/06/2024, Additional [...] exists Hepatitis C Screening Completed 01/06/2024, 022 Influenza Vaccine Completed 12/06/2024, , 11/11/2022, Additional history exists HIB Vaccines Aged Out No longer eligi [...] complication, with long-term current use of insulin ([facility]) LIPID PANEL, STANDARD Routine 10/26/2024 10:55 AM EDT Type 2 diabetes mellitus without complication, with long-term current use of insulin ([facility]) HEMOGLOBIN A1C Routine 10/26/2024 10:55 AM EDT Type 2 diabetes mellitus without complication, with long-term current use of insulin ([facility]) COMPREHENSIVE METABOLIC PANEL Routine 10/26/2024 10:55 AM EDT Type 2 diabetes mellitus without complication, with long-term current use of insulin ([facility]) ALBUMIN, RANDOM URINE W/CREATININE Routine 10/26/2024 10:55 AM EDT Type 2 diabetes mellitus without complication, with long-term current use of insulin ([facility]) POCT GLYCATED HEMOGLOBIN, TOTAL Routine 10/26/2024 10:20 AM EDT Type 2 diabetes mellitus without complication, with long-term current use of insulin ([facility]) POCT GLUCOSE Routine 10/26/2024 10:19 AM EDT Type 2 diabetes mellitus without complication, with long-term current use of insulin ([facility]) CT ABDOMEN PELVIS W CONTRAST Routine 09/25/2024 [...] QL NAAT Routine 09/25/2024 3:52 PM EDT HEPATITIS C AB W/REFL TO HCV RNA, [...] Vitamin B12 346 200 - 900 pg/mL [facility] Comment:NORMAL 200-900 PG/ML INDETERMINATE 160-199 PG/ML DEFICIENT < 160 PG/ML Folate 12.9 > or = 4.0 ng/mL [facility] Comment:Reference Values:> o r = 4.0 ng/mL< 4.0 ng/mL suggests folate deficiency Methotrexate, aminopterin and folinic acid(leucovorin) are chemotherapeutic agents whose molecularstructures are similar to folate; therefore, the Architectfolate assay cannot be used for patients using these drugs. Blood 10/26/2024 10:5 5 AM EDT 10/26/2024 11:24 AM EDT us Flower Miranda MD LAB BLOOD ORDERAB LES Final Result [facility] [address] [place] [address] [phone] * (ABNORMAL) Urinalysis, Complete, with Reflex to Culture (10/26/2024 10:55 AM EDT) Color Urine Yellow [facility] Appearance Urine Clear [facility] PH 7.0 5.0 - 9.0 [facility] Glucose Urine UA Negative Negative mg/dL [facility] Urine Blood Negative Negative [facility] Specific [place] - Urine 1.020 1.005 - 1.025 [facility] Urine Protein Negative Neg-Trace mg/dL [facility] Urine Ketones Negative Negative mg/dL [facility] Nitrite Urine Negative Negative [facility] Leukocyte Esterase Urine Trace(A) Negative [facility] RBC Urine 0-2 0 - 2 /HPF [facility] Urine WBC 0-5 0 - 5 /HPF [facility] Urine Squamous Epithelial Cell 6-10 0 - 2 /HPF [facility] Urine Bacteria Trace None Seen [facility] Hyaline Casts, Urine 0-2 0 - 2 /LPF [facility] 10/26/2024 10:5 5 AM EDT 10/26/2024 11:21 AM EDT Narrative [facility] - 10/26/2024 11:41 AM EDT Urine, Catheterized us Generic External Data Provider LAB URINE ORDERAB LES Final Result [facility] [address] [place] [address] [phone] * Albumin, Random Urine W/Creatinine (10/26/2024 10:55 AM EDT) Creatinine, Urine 150.76 mg/dL [facility] Microalbumin Urine 6.0 mg/L [facility] Microalbum Creatinine Ratio Ur 3.9 <30 ug/mg cr [facility] Comment:Albumin/Creatinine R atio Reference Ranges: Normal: < 30 ug/mg creatinine Microalbuminuria: 30 - 300 ug/mg creatinineClinical Albuminuria: > 300 ug/mg creatinine Urine (Urine, Random) 10/26/2024 10:55 AM EDT 10/26/2024 11:21 AM EDT us Flower Miranda MD LAB URINE ORDERAB LES Final Result [facility] [address] [place] [address] [phone] * (ABNORMAL) CBC auto differential (10/26/2024 10:55 AM EDT) Only the most recent of2 resultswithin the time period is included. White Blood Count 8.0 4.8 - 10.8 X10*3/uL [facility] Red Blood Count 3.24(L) 4.20 - 5.50 X10*6/uL [facility] Hemoglobin 10.4(L) 12.0 - 16.0 g/dl [facility] Hematocrit 31.8(L) 37.0 - 47.0 % [facility] Mean Corpuscular Volume 98.1(H) 80.0 - 98.0 fL [facility] Mean Corpuscular Hemoglobin 32.1 27.0 - 33.0 pg [facility] Mean Corpuscular HGB Conc 32.7 31.0 - 35.0 g/dl [facility] Red Cell Distribution Width 14.1 11.0 - 16.0 % [facility] Platelet Count 336 160 - 400 X10*3/uL [facility] Mean Platelet Volume 9.1(L) 9.4 - 12.3 fL [facility] Neutrophils Percent Auto 66.5 45 - 73 % [facility] Imm Gran Pct Auto 0.4 0.0 - 0.4 % [facility] Lymphocytes Percent Auto 21.9 20 - 40 % [facility] Monocytes Percent Auto 6.8 2 - 11 % [facility] Eosinophils Percent Auto 4.1(H) 0 - 4 % [facility] Basophils Percent Auto 0.3 0 - 2 % [facility] NRBC Pct Auto 0.0 0.0 - 0.2 /100WBC [facility] Neutrophils Absolute Auto 5.3 2.0 - 8.3 x10*3/uL [facility] Imm Gran Abs Auto 0.03 0.00 - 0.03 X10*3/uL [facility] Lymphocytes Absolute Auto 1.7 1.2 - 4.9 X10*3/uL [facility] Monocytes Absolute Auto 0.5 0.1 - 1.2 X10*3/uL [facility] Eosinophils Absolute Auto 0.3 0.0 - 0.4 X10*3/uL [facility] Basophils Absolute Auto 0.0 0.0 - 0.2 X10*3/uL [facility] NRBC Abs Auto 0.000 0.0 - 0.012 X10*3/uL [facility] Blood Venous blood specimen / Unknown 10/26/2024 10:55 AM EDT 10/26/2024 11:23 AM EDT Flower Miranda MD LAB BLOOD ORDERAB LES Final Result [facility] [address] [place] [address] [phone] * (ABNORMAL) Magnesium (10/26/2024 10:55 AM EDT) Only the most recent of2 resultswithin the time period is included. Magnesium 1.5(L) 1.6 - 2.6 mg/dL [facility] Blood Venous blood specimen / Unknown 10/26/2024 10:55 AM EDT 10/26/2024 11:24 AM EDT Flower Miranda MD LAB BLOOD ORDERAB LES Final Result Performing Organization Address [facility] Co de Phone Number [facility] [address] [place] [phone] * (ABNORMAL) Hemoglobin A1c (10/26/2024 10:55 AM EDT) Hemoglobin A1c 7.3(H) <6.0 % [facility] Comment:Hemoglobin A1C Refer ence Range Adults: 4.8 - 6.0 % Non diabetic: < 6.0 % Goal: < 7.0 %Additional Action Suggested: > 8.0 %Note: Hemoglobin A1c results are invalid for patients with abnormal amounts of HbF. Blood transfusions may impact the HbA1c concentration in the patient sample. Estimated Average Glucose 163 mg/dL [facility] Comment:eAG = Estimated ave rage glucose which is %A1C expressed asaverage glucose, using the formula of the [id number] Glucose study (ADAG), Diabetes Care, Vol.31,#8,Sep. 2007 Blood Venous blood specimen / Unknown 10/26/2024 10:55 AM EDT 10/26/2024 11:23 AM EDT us Flower Miranda MD LAB BLOOD ORDERAB LES Final Result Performing Organization Address [facility] Co de Phone Number [facility] [address] [place] [phone] * (ABNORMAL) Lipid Panel, Standard (10/26/2024 10:55 AM EDT) Triglycerides 206(H) <150 mg/dL [facility] Comment:Desirable Triglyceri de: less than 150 mg/dLBorderline High Triglyceride 150-199 mg/dLHigh Triglyceride: 200-499 mg/dLVery High Triglyceride: greater than or equal to 5OO mg/dL Cholesterol 171 <200 mg/dL [facility] Comment:Desirable Cholestero l: less than 200 mg/dLBorderline High Cholesterol: 200-239 mg/dLHigh Cholesterol: greater than 239 mg/dL LDL Cholesterol Calculated 58 <100 mg/dL [facility] Comment:Desirable LDL: less than 100 mg/dLNear Optimal/Above Optimal LDL: 110- 129 mg/dLBorderline High LDL: 130-159 mg/dLHigh LDL: 160-189 mg/dLVery High LDL: greater than or equal to 190 mg/dL HDL Cholesterol 72 >40 mg/dL [facility] Comment:Desirable HDL: great er than 40 mg/dL Note: This HDL assay may give artificially low results in patients with liver disease. Blood Venous blood specimen / Unknown 10/26/2024 10:55 AM EDT 10/26/2024 11:24 AM EDT us Flower Miranda MD LAB BLOOD ORDERAB LES Final Result [facility] [address] [place] [phone] * (ABNORMAL) Comprehensive Metabolic Panel (10/26/2024 10:55 AM EDT) Sodium 140 135 - 145 mmol/L [facility] Potassium 3.6 3.3 - 5.1 mmol/L [facility] Chloride 100 96 - 108 mmol/L [facility] Carbon Dioxide 31(H) 22 - 29 mmol/L [facility] Anion Gap 13 12 - 20 [facility] Urea Nitrogen (BUN) 14 9 - 16 mg/dL [facility] Creatinine, Serum 0.88 0.5 - 1.4 mg/dL [facility] Estimated Glomerular Filt Rate >60 [facility] Comment:Chronic Kidney Disea se: Estimated GFR < 60 mL/min/[id number] Kidney Disease: Estimated GFR < 15 mL/min/1.73m2 Glucose 109 60 - 115 mg/dL [facility] Calcium 9.5 8.4 - 10.2 mg/dL [facility] Bilirubin, Total 0.3 0.0 - 1.0 mg/dL [facility] Aspartate Amino Transferase 19 5 - 31 U/L [facility] Alanine Aminotransferase 18 0 - 31 U/L [facility] Total Protein 6.5 6.5 - 8.0 g/dL [facility] Albumin Level 4.2 3.5 - 5.0 g/dL [facility] Alkaline Phosphatase 56 39 - 117 U/L [facility] Blood Venous blood specimen / Unknown 10/26/2024 10:55 AM EDT 10/26/2024 11:24 AM EDT Flower Miranda MD LAB BLOOD ORDERAB LES Final Result [facility] [address] [place] [address] [phone] * (ABNORMAL) POCT Hgb A1c (10/26/2024 10:20 AM EDT) Hemoglobin A1C 7.1(A) 4.0 - 5.7 % QC Media Lot # [id number] Lot# Expiration Date ,139,794 Blood 10/26/2024 10:2 0 AM EDT us Flower Miranda MD POINT OF CARE ALIRIO T ENTER/EDIT ORDERABLES Final Result * POCT Glucose (10/26/2024 10:19 AM EDT) Glucose Blood, POC 94 60 - 200 mg/dL QC Media Lot # [id number] Lot# Expiration Date [id number] Blood Capillary blood specimen / Unknown 10/26/2024 10:19 AM EDT Flower Miranda MD POINT OF CARE ALIRIO T ENTER/EDIT ORDERABLES Final Result * CT Abdomen Pelvis w/ Contrast (09/25/2024 7:01 PM EDT) Anatomical Region Laterality Modality Body, Pelvis, Abdomen Computed T omography 09/25/2024 7:01 PM EDT Narrative 09/25/2024 7:[address] [address] [address] Scan Report Signed Patient: Carole Tapia MR#: [id number] : 1950 Acct:[id number] Age/Sex: 73 / F ADM Date: 09/25/24 Loc: HO.ED Attending Dr: Ordering Physician: Nimco Cobian MD Date of Service: 09/25/24 Procedure(s): CT abdomen pelvis w IV con Accession Number(s): [id number] cc: Nimco Cobian MD; Flower High MD Report Number: [id number]: Total DLP = 406.00 mGy-cm CLINICAL HISTORY: [...] in OV> 09/25/241901 DD/ 00 TD/TT: 09/25/241900 [employer]: Procedure Note Donotuseinterpreter, Image - 09/25/[address] [address] [address] Scan Report Signed Patient: Keith TapiaR#: [id number] : 1950cct:[id number] Age/Sex: 73 / FADM Date: 09/25/24 Loc: HO.ED Attending Dr: Ordering Physician: Nimco Cobian MD Date of Service: 09/25/24 Procedure(s): CT abdomen pelvis w IV con Accession Number(s): [id number] cc: Nimco Cobian MD; Flower High MD Report Number: [id number]: Total DLP = 406.00 mGy-cm CLINICAL HISTORY: [...] in OV> 09/25/241901 DD/ 00 TD/TT: 09/25/241900 [employer] Carrier: [facility] External Provider IMG CT PROCEDURES Edited Result - Final * (ABNORMAL) VENOUS BLOOD GAS (09/25/2024 5:36 PM EDT) VBG pH 7.37 7.32 - 7.43 [facility] Comment:METER #: [id number] additional_comment: Cb moselef VBG PCO2 63 mmHg [facility] Comment:METER #: [id number] additional_comment: Cb moselef VBG PO2 40 mmHg [facility] Comment:METER #: [id number] additional_comment: Cb moselef VBG Base Excess 10.1 mmol/L [facility] Comment:METER #: [id number] additional_comment: Cb moselef VBG HCO3 37(H) 22 - 26 mmol/L [facility] Comment:METER #: [id number] additional_comment: Cb kendrickf O2 Sat, Sam 59.0 % [facility] Comment:METER #: [id number] additional_comment: Cb suhail 09/25/2024 5:36 PM EDT 09/25/2024 5:41 PM EDT us Generic External Data Provider LAB BLOOD ORDERAB LES Final Result Performing Organization Address [facility] Co de Phone Number [facility] [address] [place] [address] [phone] * Blood Culture (First) (09/25/2024 5:27 PM EDT) Blood Venous blood specimen / Unknown 09/25/2024 5:27 PM EDT 09/25/2024 5:32 PM EDT Comment:Blood Narrative [facility] - 09/30/2024 7:32 PM EDT Blood Culture (First) No growth after 5 days. Specimen Source: Blood us Generic External Data Provider LAB MICROBIOLOGY - GENERAL ORDERABLES Final Result Performing Organization Address [facility] de Phone Number [facility] [address] [place] [address] [phone] * Blood Culture (Second) (09/25/2024 5:27 PM EDT) Blood Venous blood specimen / Unknown 09/25/2024 5:27 PM EDT 09/25/2024 5:34 PM EDT Comment:Blood Narrative [facility] - 09/30/2024 7:34 PM EDT Blood Culture (Second) No growth after 5 days. Specimen Source: Blood us Generic External Data Provider LAB MICROBIOLOGY - GENERAL ORDERABLES Final Result Performing Organization Address [facility] Co de Phone Number [facility] [address] [place] [address] [phone] * B Type Natriuretic Peptide (BNP) (09/25/2024 5:27 PM EDT) B Type Natriuretic Peptide 24 <100 pg/mL [facility] 09/25/2024 5:27 PM EDT 09/25/2024 5:34 PM EDT us Generic External Data Provider LAB BLOOD ORDERAB LES Final Result Performing Organization Address [facility] Co de Phone Number [facility] [address] [place] [address] [phone] * Lactic Acid (09/25/2024 5:27 PM EDT) Lactic Acid 1.9 0.5 - 2.0 mmol/L [facility] 09/25/2024 5:27 PM EDT 09/25/2024 5:32 PM EDT Generic External Data Provider LAB BLOOD ORDERAB LES Final Result Performing Organization Address [facility] Co de Phone Number [facility] [address] [place] [address] [phone] * XR Chest 2 Views (09/25/2024 4:01 PM EDT) Anatomical Region Laterality Modality Chest Radiographic Janice ging 09/25/2024 4:01 PM EDT Narrative 09/25/2024 4:03 PM EDT [address] [address] XRay Report Signed Patient: Carole Tapia MR#: [id number] : 1950 Acct:[id number] Age/Sex: 73 / F ADM Date: 09/25/24 Loc: .ED Attending Dr: Ordering Physician: Cheli Harris Date of Service: 09/25/24 Procedure(s): XR chest 2V Accession Number(s): [id number] cc: Flower High MD; Cheli Harris CLINICAL HISTORY: SOB 2 view chest x-ray Comparison: CR/SR - XR CHEST 2V - 3/24/25 17:[address] - CTA CHEST FOR PE - 11/15/19 14:01 EDT Findings: The lungs [...] OV> 09/25/24 1602 DD/ 1601 TD/TT: 09/25/24 160 [employer]: Procedure Note Donisabelter, Image - 09/25/2024 [place] [address] XRay Report Signed Patient: Sherrie Tapia#: [id number] : 1950cct:[id number] Age/Sex: 73 / FADM Date: 09/25/24 Loc: HO.ED Attending Dr: Ordering Physician: Cheli Harris Date of Service: 09/25/24 Procedure(s): XR chest 2V Accession Number(s): [id number] cc: Flower High MD; Cheli Harris CLINICAL HISTORY: SOB 2 view chest x-ray Comparison: CR/SR - XR CHEST 2V - 05/10/24 17:[address] - CTA CHEST FOR PE - 11/15/19 14:01 EDT Findings: The lungs [...] 09/25/24 1602 DD/ 1601 TD/TT: 09/25/24 1601 [employer]: [facility] External Provider IMG XR PROCEDURES Final Result * SARS-CoV-2 RNA, Influenza A/B, and RSV RNA, Ql NAAT (09/25/2024 3:52 PM EDT) Influenza A PCR NEGATIVE Negative [facility] Influenza B PCR NEGATIVE Negative [facility] Resp Syncy Virus RNA Qual PCR NEGATIVE Negative [facility] SARS COV2 PCR NEGATIVE Negative [facility] Comment:All test results mus t [...] use by authorized laboratories.Testing performed on the [employer] GeneXpert utilizingreal-time RT-PCR.All SARS CoV2 and positive influenza A/B results arereported to [facility]. 09/25/2024 3:52 PM EDT 09/25/2024 3:57 PM EDT Generic External Data Provider LAB MICROBIOLOGY - GENERAL ORDERABLES Final Result Performing Organization Address [facility]/ZIP Co de Phone Number [facility] [address] [place] [phone] * Lipase (09/25/2024 3:52 PM EDT) Lipase 24 8 - 78 U/L [facility] 09/25/2024 3:52 PM EDT 09/25/2024 3:57 PM EDT Generic External Data Provider LAB BLOOD ORDERAB LES Final Result Performing Organization Address [facility]/ZIP Co de Phone Number [facility] [address] [place] [address] [phone] * (ABNORMAL) Hepatic Function Panel (09/25/2024 3:52 PM EDT) Bilirubin, Total 0.1 0.0 - 1.0 mg/dL [facility] Bilirubin, Direct <0.2 0.0 - 0.5 mg/dL [facility] Aspartate Amino Transferase 18 5 - 31 U/L [facility] Alanine Aminotransferase 14 0 - 31 U/L [facility] Total Protein 6.2(L) 6.5 - 8.0 g/dL [facility] Albumin Level 3.8 3.5 - 5.0 g/dL [facility] Alkaline Phosphatase 54 39 - 117 U/L [facility] 09/25/2024 3:52 PM EDT 09/25/2024 3:57 PM EDT us Generic External Data Provider LAB BLOOD ORDERAB LES Final Result [facility] [address] [place] [phone] * (ABNORMAL) Basic Metabolic Panel (09/25/2024 3:52 PM EDT) Pathologist [facility] Sodium 143 135 - 145 mmol/L [facility] Potassium 3.4 3.3 - 5.1 mmol/L [facility] Chloride 104 96 - 108 mmol/L [facility] Carbon Dioxide 30(H) 22 - 29 mmol/L [facility] Anion Gap 12 12 - 20 [facility] Urea Nitrogen (BUN) 13 9 - 16 mg/dL [facility] Creatinine, Serum 0.95 0.5 - 1.4 mg/dL [facility] Creatinine Clr Calc Pharmacy 42.2 [facility] Comment:Provided height and weight: 149.86 cm,58.2 kg.eGFR (calculated from the MDRD study equation) and eCrCl(calculated from the Cockcroft-Gault equation) are based ondifferent parameters and may not yield comparable results.If eCrCl result is absurd, please check patient'sheight/weight. Estimated Glomerular Filt Rate 58 [facility] Comment:Chronic Kidney Disea se: Estimated GFR < 60 mL/min/1.68i5Mkirvc Kidney Disease: Estimated GFR < 15 mL/min/1.73m2 Glucose 101 60 - 115 mg/dL [facility] Calcium 9.0 8.4 - 10.2 mg/dL [facility] 09/25/2024 3:52 PM EDT 09/25/2024 3:57 PM EDT us Generic External Data Provider LAB BLOOD ORDERAB LES Final Result Performing Organization Address [facility] Co de Phone Number [facility] [address] [place] [phone] * Hepatitis C Antibody with Reflex to HCV, RNA, Quantitative, Real-Time PCR (01/06/2024 11:28 AM EST) Hepatitis C Antibody Nonreactive Nonreactive [facility] Comment:Antibodies to HCV no t detected; does not exclude early acuteHCV infection. Blood Venous blood specimen / Unknown 01/06/2024 11:28 AM EST 01/06/2024 1:08 PM EST us Flower Miranda MD LAB BLOOD ORDERAB LES Final Result Performing Organization Address [facility] Co de Phone Number [facility] [address] [place] [address] [phone] * BI Mammogram Screening Tomosynthesis Bilateral (12/25/2023 12:35 PM EST) Anatomical Region Laterality Modality Breast Bilateral Mammography 12/25/2023 12:3 5 PM EST Narrative 01/02/2024 4:11 PM EST [facility] [address] [place] [address] Mammography Report Signed Patient: Carole Tapia MR#: [id number] : 1950 Acct:[id number] Age/Sex: 72 / F ADM Date: 12/25/23 Loc: MAMMO Attending Dr: Flower Miradna MD Ordering Physician: Flower High MD sults: 2Benign Findings Date of Service: 12/25/23 Follow Up: 1 Year From Orig inal Mammogram Procedure(s): MM tomosynthesis screening BI Accession Number(s): [id number] cc: Flower High MD EXAMINATION: MM SCREENING [...] by: Fabiana Casiano DO 01/02/2024 04:08 PM [facility] [place] [place] Dictated By: Fabiana Casiano DO Signed By: <Electronically signed by Fabiana Casiano DO in OV> 01/02/24 1608 DD/ 1235 TD/TT: 12/25/23 1253 [employer] Car[employer]: Procedure Note Donotuseinterpreter, Image - 01/02/2024 [facility] [address] [place] [address] Dr. [place], [place] [address] Mammography Report Signed Patient: Sherrie Tapia#: [id number] : 1950cct:[id number] Age/Sex: 72 / FADM Date: 12/25/23 Loc: HOMurtazaMAMMO Attending Dr: Flower Miranda MD Ordering Physician: Flower High sults: 2Benign Findings Date of Service: 12/25/23Follow Up: 1 Year From Orig inal Mammogram Procedure(s): MM tomosynthesis screening BI Accession Number(s): [id number] cc: Flower High MD EXAMINATION: MM SCREENING [...] by: Fabiana Casiano DO 01/02/2024 04:08 PM [facility] [place] [place] Dictated By: Fabiana Casiano DO Signed By: <Electronically signed by Fabiana Casiano DO in OV> 01/02/24 1608 DD/ 1235 TD/TT: 12/25/23 1253 [employer] Car[employer]: us Flower Miranda MD IMG BI PROCEDURES Final Result * Referral to Podiatry (09/29/2023) Flower Miranda MD OUTPATIENT REFERR AL ORDERABLES Final Result * Hm Colonoscopy (06/16/2012) Colonoscopy Normal Normal us Historical Provider HEALTH MAINTENANCE Final Result from Last 3 Months or Most Recently Relevant to Health Maintenance Insurance [facility] [employer] OPTIONS (HMO D-SNP) [facility] Care Teams Rigging Helper Relationship Specialty Start Date End Date Flower High MD [address] [place] [phone] PCP - General Internal Medicine 07/19/22 [employer] 06/08/24
== END 2024-12-16 14:55 | disposition home or self-care (01) ==
LOC: HO.HUSH 13:16
PROVIDERS: PCP Student in an Organized Health Care Education/Training Program; Visit Provider Urology
DX: J44.9 Chronic obstructive pulmonary disease, unspecified (principal); G47.33 Obstructive sleep apnea (adult) (pediatric); C67.9 Malignant neoplasm of bladder, unspecified; F17.200 Nicotine dependence, unspecified, uncomplicated
CPT/HCPCS: 52000; 99214

== ENCOUNTER 2024-12-16 13:16 | Outpatient (REF) | payer OTHER, SELFPAY | END 2024-12-16 13:17 | disposition home or self-care (01) | LOC: HO.LAB 13:16 | PROVIDERS: PCP Student in an Organized Health Care Education/Training Program; Visit Provider Urology | DX: R31.29 Other microscopic hematuria (principal); C67.9 Malignant neoplasm of bladder, unspecified; J44.89 Other specified chronic obstructive pulmonary disease; G47.33 Obstructive sleep apnea (adult) (pediatric); F17.210 Nicotine dependence, cigarettes, uncomplicated; Z79.899 Other long term (current) drug therapy | CPT/HCPCS: 52000; 81003; 88112; 99212 ==

== ENCOUNTER 2024-12-23 10:31 | Outpatient (AMB) | payer OTHER, SELFPAY ==
[2024-12-23 10:47] VITALS: BP 120/52; PULSE 96; BMI 26.6
--- NOTE | 2024-12-23 10:47 | A.OFFVIS_ITS ---
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 teddy alexander/chest pain Cake Stripper Required: Yes Cake Stripper Services: Cake Stripper Present Cake Stripper Name: Miri Dorsey [id number] Isabell Accompanied by: Daughter Allergies No Known Allergies (No Known Allergies*) Allergy (Verified 12/23/24 10:52) Medication List - Last Reconciled 12/23/24 by Christopher Rayo MD albuterol sulfate 2.5 mg (3 mL) inhalation QID albuterol sulfate 90 mcg/actuation 2 puffs inhalation Q6H PRN 30 days aspirin 81 mg PO BEDTIME Held on 07/07/24. Instructions: Resume on 07/14/24. azithromycin 250 mg PO 3XW 28 days buspirone 10 mg PO BID calcium carbonate 500 mg PO BID cetirizine 10 mg PO DAILY cholecalciferol (vitamin D3) 50 mcg PO DAILY cyanocobalamin (vitamin B-12) 1,000 mcg PO QPM doxycycline hyclate 100 mg PO BID irjcafxcgzm-yysiyfghw-scvjpddk 200-62.5-25 mcg (Trelegy Ellipta) 1 inh inhalation DAILY gabapentin 300 mg PO TID ipratropium-albuterol 0.5 mg-3 mg(2.5 mg base)/3 mL 3 mL inhalation QID 30 days ipratropium-albuterol 20-100 mcg/actuation (Combivent Respimat) 1 puff inhalation Q6H lancets (TRUEplus Lancets) As directed linagliptin 5 mg PO DAILY lisinopril-hydrochlorothiazide 20-12.5 mg 1 tab PO DAILY metformin 1,000 mg PO BEDTIME mirabegron ER (Myrbetriq) 50 mg PO DAILY montelukast (Singulair) 10 mg PO BEDTIME 90 days nebulizers As directed nicotine 1 patch transdermal DAILY 28 days nicotine 1 patch transdermal DAILY 28 days nicotine 1 patch transdermal DAILY 28 days omeprazole 40 mg PO DAILY prednisone 10 mg PO DAILY 30 days roflumilast (Daliresp) 500 mcg PO DAILY 30 days rosuvastatin 40 mg PO BEDTIME sertraline 150 mg PO DAILY HPI Comments Details: Carole is here for consultation regarding coronary disease. Per PCP notes, coronary calcification noted on CT scan and she had reported chest pains. Patient herself denies any prior cardiac issues including coronary disease myocardial infarction or cardiomyopathy. It seems that she has had chest pains at different times. Sometimes with activity, and sometimes not. Chronic smoker and still smokes. Has other risk factors including diabetes, hypertension, dyslipidemia. Also history of bladder cancer. 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 [facility] Medical History Bladder mass Personal history of nicotine dependence Osteopenia Bladder cancer (~2018) Hypertension Diabetes mellitus Asthma-COPD overlap syndrome JIMBO (obstructive sleep apnea) Nicotine dependence, cigarettes, uncomplicated Bilateral anterior knee pain Surgical History History of transurethral resection of bladder tumor (TURBT) History of esophagogastroduodenoscopy (EGD) History of colonoscopy Family History (Updated 12/23/24 @ 10:51 by José Miguel Kennedy CNA) Son Heart murmur Son Heart problem Social History (Updated 12/23/24 @ 10:51 by José Miguel Kennedy CNA) Household Members: None Housing: Apartment Are you a primary nurse behavioral health care to a significant other at home: No Do you presently have visiting nurse or other home services: Yes (COMMUNICATION INSTRUCTOR (daughter)) Alcohol intake: current Alcohol intake frequency: holidays/special occasions only Patient Tobacco Use Status: Current everyday Tobacco user Tobacco use type: Cigarette Cigarettes Per Day: 1 Years Smoked: (onset 15yr,s 1/2-1ppd x 50yrs, 35pyh, quit 2020) service: No Current occupational status: retired and disabled 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 Review of Systems Const Denies daytime sleepiness, Denies difficulty sleeping, Denies snoring, Denies stops breathing during sleep and Denies weakness Card Denies chest pain, Denies rapid heart rate, Denies irregular heart rhythm, Denies claudication, Denies leg edema, Denies lightheadedness, Denies palpitations, Reports dyspnea, Reports dyspnea on exertion, Denies orthopnea, Denies paroxysmal nocturnal dyspnea and Denies slow heart rate Resp Denies cough, Reports dyspnea, Reports dyspnea on exertion and Denies snoring GI Reports no additional complaints, Denies hematochezia, Denies change in stool character and Denies dyspepsia Musc Denies abnormal gait, Denies muscle weakness and Denies numbness Neuro Denies abnormal gait, Denies numbness and Denies weakness Endo Denies palpitations Physical Exam Vital Signs: Last Vital Signs Pulse 96 12/23/24 10:47 BP 120/52 L 12/23/24 10:47 BMI result Body Mass Index 26.6 Const General: comfortable and no acute distress Orientation/consciousness: patient oriented x3 HEENT Other: Unremarkable Head: Yes normal to inspection Neck Neck: Yes normal visual inspection Chest Chest palpation & inspection: normal inspection of the chest Resp Auscultation: clear to auscultation bilaterally Cardio Palpation: normal PMI Heart sounds: S1 normal heart sound present, S2 normal heart sound present, no gallops, no murmurs and no rubs GI Palpation (GI): Soft to palpation Back/Spine/Pelvis Other: unremarkable Skin General skin exam: no rashes or lesions noted Neuro General: patient oriented x3 Extrem General: Yes normal to inspection Psych Mental Status: mental status grossly normal Assessment & Plan Assessment & Plan (1) Atherosclerotic cardiovascular disease: Code(s): I25.10 - Atherosclerotic heart disease of [place] coronary artery without angina pectoris Category: Medical (2) Precordial chest pain: Code(s): R07.2 - Precordial pain Category: Medical Plan Recent EKG with underlying sinus rhythm at 97/Min; no ischemic changes; normal MA and corrected QT. A prior chest CT scan had reported marked and extensive coronary artery calcification. Patient has had some chest pains but very typical either. However, she has got extensive risk factors and the above CT findings. We will pursue further workup with an echocardiogram and stress testing. Unlikely to exercise on the treadmill and hence we can do a pharmacological stress test with Lexiscan. Orders: Orders CA lexiscan stress w iesha Today I20.9 - Angina pectoris, unspecified, I25.10 - Atherosclerotic heart disease of [place] coronary artery without angina pectoris [place] cardiolite stress test Today I25.10 - Atherosclerotic heart disease of [place] coronary artery without angina pectoris, R07.2 - Precordial pain CA echo transthoracic complete Today I25.10 - Atherosclerotic heart disease of [place] coronary artery without angina pectoris Coding Level of Care Code New Pt Level 4 (34471) Complex EM visit Add On G2211 Diagnoses Atherosclerotic cardiovascular disease I25.10 Precordial chest pain R07.2
--- OUTSIDE RECORDS SUMMARY | 2024-12-23 12:33 | XMS_ITS | Encounter Summary ---
Author Organization [employer] Address [address] [place] [address] Care Team Providers Care Bottom Cementer Name Role Phone Flower High MD Primary Care Pro vider Reason for Visit * Reason Onset Date Comments Med Refill No Show 09/17/2022 Encounter Details Date Type Department Care Team (Late st Contact Info) Description 09/17/2022 Refill [facility] MED[facility]INE [address] [place] [address] Claudette Lorenzo, WORSTED WINDER [address] [place] [address] Allergic rhinitis, unspecified seasonality, unspecified trigger Social [...] Description 01/04/2025 3:00 PM EST Clinical Support [facility] CH[facility] MED & PEDS [address] [place] [address] Cori Dave, LAZARO [address] [place] [address] 02/25/2025 11:30 AM EST Office Visit [facility] MEDICINE [address] [place] [address] Flower High MD [address] [place] [address] 04/27/2025 3:00 PM EDT Office Visit [facility] OPTOMETRY [address] [place] [address] Mabel Fraire, OD [address] [place] [address] documented as of this encounter Visit Diagnoses Diagnosis Allergic rhinitis, unspecified seasonality, unspecified trigger documented in this encounter Care Teams Bottom Cementer Relationship Specialty Start Date End Date Flower High MD [address] [place] [phone] PCP - General Internal Medicine 07/19/22 [employer] 06/08/24 documented as of this encounter
--- OUTSIDE RECORDS SUMMARY | 2024-12-23 12:33 | XMS_ITS | Encounter Summary ---
Author Organization [employer] Address [address] [place] [address] Care Team Providers Care Consulting Solution Manager Name Role Phone Flowre High MD Primary Care Pro vider Reason for Visit * Reason Comments Med Refill Encounter Details Date Type Department Care Team (Late st Contact Info) Description 11/02/2024 Refill [facility] [address] [place] [address] Frida Smith DO [address] [place] [address] Social History Tobacco Use Types Packs/Day Years [...] 01/04/2025 3:00 PM EST Clinical Support [facility] MED & PEDS [address] [place] [address] Cori Dave, LAZARO [address] [place] [address] 02/25/2025 11:30 AM EST Office Visit [facility] MEDICINE [address] [place] [address] Flower High MD [address] [place] [address] 04/27/2025 3:00 PM EDT Office Visit [facility] OPTOMETRY [address] [place] [address] Mabel Fraire, OD [address] [place] [address] documented as of this encounter Visit Diagnoses Not on filedocumented in this encounter Additional Health Concerns Assessment Noted Time PHQ-9 Depression Total Score: 0 09/02/19 2:30 PM EDT documented as of this encounter Care Teams Consulting Solution Manager Relationship Specialty Start Date End Date Flower High MD [address] [place] [phone] PCP - General Internal Medicine 07/19/22 Altr[facility] 06/08/24 documented as of this encounter
--- OUTSIDE RECORDS SUMMARY | 2024-12-23 12:33 | XMS_ITS | Encounter Summary ---
Author Organization [employer] Address [address] [facility] 7t [place] [address] Care Team Providers Care Dyno Technician Name Role Phone Flower High MD Primary Care Pro vider Reason for Visit * Reason Comments Med Refill Encounter Details Date Type Department Care Team ([facility] st Contact Info) Description 05/30/2023 Refill [facility] MEDICINE [address] [place] [address] Flower High MD 230 [place] [address] Chronic midline low back pain without sciatica [...] Description 01/04/2025 3:00 PM EST Clinical Support [facility] CHC MED & PEDS 505 [place] [address] Cori Dave, LAZARO 505 [place] [address] 02/25/2025 11:30 AM EST Office Visit [facility] MEDICINE 230 [place] [address] Flower High MD 230 [place] [address] 04/27/2025 3:00 PM EDT Office Visit [facility] OPTOMETRY [address] [place] [address] Mabel Fraire, CECILIA 230 [place] [address] documented as of this encounter Visit Diagnoses Diagnosis Chronic midline low back pain without sciatica documented in this encounter Additional Health Concerns Assessment Noted Time PHQ-9 Depression Total Score: 0 01/07/20 23 1:19 PM EST documented as of this encounter Care Teams Dyno Technician Relationship Specialty Start Date End Date Flower High MD [address] [place] [address] PCP - General Internal Medicine 07/19/22 Altranais 06/08/24 documented as of this encounter
--- OUTSIDE RECORDS SUMMARY | 2024-12-23 12:33 | XMS_ITS | Encounter Summary ---
Author Organization [employer] Address [address] [place] [address] [place], [place] [address] Care Team Providers Care Machine Stemmer Name Role Phone Claudette Lorenzo RADHA Primary Care Provider [phone] Flower High MD Primary Care Pro vider Encounter Details Date Type Department Care Team (Late st Contact Info) Description 05/06/2022 Orders Only [facility] MEDICINE [address] [place] [address] [phone] Karlene Dow LPN Social History Tobacco Use [...] [facility] PEDS 505 [place], [place] [phone] Cori Dave, LAZARO 505 [place], [place] [phone] 02/25/2025 11:30 AM EST Office Visit [facility] MEDICINE [address] [place] [address] [phone] Flower High MD 230 [place], [place] [phone] 04/27/2025 3:00 PM EDT Office Visit C OPTOMETRY [address] [place], [place] [phone] Mabel Fraire, OD 230 [place], [place] [phone] documented as of this encounter Visit Diagnoses Not on filedocumented in this encounter Care Teams Machine Stemmer Relationship Specialty Start Date End Date Claudette Lorenzo FNP 230 [place], [place] [phone] PCP - General Family Medicine 10/11/21 07/18/22 Flower High MD 230 [place], [place] [phone] PCP - General Internal Medicine 07/19/22 Altranais 06/08/24 documented as of this encounter
--- OUTSIDE RECORDS SUMMARY | 2024-12-23 12:33 | XMS_ITS | Encounter Summary ---
Author Organization [employer] Address [address] [facility] [address] 7t [place] [address] Care Team Providers Care Hydroelectric Plant Structural Engineer Name Role Phone Flower High MD Primary Care Pro vider Encounter Details Date Type Department Care Team (Late st Contact Info) Description 05/20/2024 Orders Only [facility] MEDICINE 230 [place], [place] [phone] Flower High MD 230 [place], [place] [phone] Type 2 diabetes mellitus without complication, with long-term current use of insulin ([facility]) Social History Tobacco Use Types [...] the past 12 months, has t he [employer], gas, oil or water company threatened to [...] Description 01/04/2025 3:00 PM EST Clinical Support [facility] CHC MED & PEDS 505 [place] [address] Cori Dave, LAZARO 505 [place] [address] 02/25/2025 11:30 AM EST Office Visit [facility] MEDICINE 230 [place] [address] Flower High MD 230 [place] [address] 04/27/2025 3:00 PM EDT Office Visit [facility] OPTOMETRY [address] [place] [address] Mabel Fraire, CECILIA 230 [place] [address] documented as of this encounter Visit Diagnoses Diagnosis Type 2 diabetes mellitus without complication, with long-term current use of insulin (HCC) documented in this encounter Additional Health Concerns Assessment Noted Time PHQ-9 Depression Total Score: 20 024 8:46 AM EDT documented as of this encounter Care Teams Hydroelectric Plant Structural Engineer Relationship Specialty Start Date End Date Flower High MD [address] [place] [address] PCP - General Internal Medicine 07/19/22 Altranais 06/08/24 documented as of this encounter
--- OUTSIDE RECORDS SUMMARY | 2024-12-23 12:33 | XMS_ITS | Encounter Summary ---
Author Organization [employer] Address 75 [facility] 7t [place] [address] Care Team Providers Care Print Finisher Name Role Phone Flower High MD Primary Care Pro vider Encounter Details Date Type Department Care Team (Late st Contact Info) Description 03/05/2023 Orders Only [facility] 230 [place] [address] Flower High MD 230 [place] [address] Social History Tobacco Use Types Packs/Day Years [...] Description 01/04/2025 3:00 PM EST Clinical Support [facility] CHC MED & PEDS 505 [place] [address] Cori Dave RN 505 [place] [address] 02/25/2025 11:30 AM EST Office Visit [facility] MEDICINE 230 [place] [address] Flower High MD [address] [place] [address] 04/27/2025 3:00 PM EDT Office Visit [facility] OPTOMETRY 267 [place] [address] Juno, Mabel, OD 230 [place] [address] documented as of this encounter Visit Diagnoses Not on filedocumented in this encounter Additional Health Concerns Assessment Noted Time PHQ-9 Depression Total Score: 0 01/07/20 23 1:19 PM EST documented as of this encounter Care Teams Print Finisher Relationship Specialty Start Date End Date Flower High MD [address] [place] [address] PCP - General Internal Medicine 07/19/22 Hermannranais 06/08/24 documented as of this encounter
--- OUTSIDE RECORDS SUMMARY | 2024-12-23 12:33 | XMS_ITS | Encounter Summary ---
Author Organization [employer] Address 75 [facility] 7 [place] [address] Care Team Providers Care Plasma Center Technician Name Role Phone Flower High MD Primary Care Pro vider Reason for Visit * Reason Comments Med Refill Encounter Details Date Type Department Care Team ([facility] st Contact Info) Description 11/10/2024 Refill [facility] MEDICINE 230 [place] [address] Flower High MD 230 [place], [place] [phone] Type 2 diabetes mellitus without complication, with long-term current use of insulin ([facility]) Social History Tobacco Use Types Packs/Day [...] the past 12 months, has t he [employer], gas, oil or water [employer] threatened to shut off services in your [...] Clinical Support [facility] CHC MED & PEDS 505 [place] [address] Cori Dave, LAZARO 505 [place] [address] 02/25/2025 11:30 AM EST Office Visit [facility] MEDICINE 230 [place] [address] Flower High MD 230 [place] [address] 04/27/2025 3:00 PM EDT Office Visit [facility] OPTOMETRY 267 [place] [address] Mabel Fraire, OD 230 [place] [address] documented as of this encounter Visit Diagnoses Diagnosis Type 2 diabetes mellitus without complication, with long-term current use of insulin (HCC) documented in this encounter Additional Health Concerns Assessment Noted Time PHQ-9 Depression Total Score: 0 09/02/19 25 2:30 PM EDT documented as of this encounter Care Teams Plasma Center Technician Relationship Specialty Start Date End Date Flower High MD [address] [place] [id number] PCP - General Internal Medicine 07/19/22 Altranais 06/08/24 documented as of this encounter
--- OUTSIDE RECORDS SUMMARY | 2024-12-23 12:33 | XMS_ITS | Encounter Summary ---
Author Organization [employer] Address [address] [place] [address] 7[place], [place] [address] Care Team Providers Care Desktop Technician Name Role Phone Claudette Lorenzo RADHA Primary Care Provider [phone] Flower High MD Primary Care Pro vider Encounter Details Date Type Department Care Team (Late st Contact Info) Description 03/18/2022 Orders Only [facility] MEDICINE [address] [place] [address] [phone] Karlene Dow LPN Social History Tobacco Use [...] Description 01/04/2025 3:00 PM EST Clinical Support [facility] CHC MED & PEDS 505 [place], [place] [phone] Cori Dave, LAZARO 505 [place], [place] [phone] 02/25/2025 11:30 AM EST Office Visit [facility] MEDICINE [address] [place] [address] [phone] Flower High MD 230 [place], [place] [phone] 04/27/2025 3:00 PM EDT Office Visit C OPTOMETRY [address] [place], [place] [phone] Mabel Fraire, OD 230 [place], [place] [phone] documented as of this encounter Visit Diagnoses Not on filedocumented in this encounter Care Teams Desktop Technician Relationship Specialty Start Date End Date Claudette Lorenzo FNP 230 [place], [place] [phone] PCP - General Family Medicine 10/11/21 07/18/22 Flower High MD 230 [place], [place] [phone] PCP - General Internal Medicine 07/19/22 Altranais 06/08/24 documented as of this encounter
--- OUTSIDE RECORDS SUMMARY | 2024-12-23 12:33 | XMS_ITS | Encounter Summary ---
Author Organization [employer] Address [address] [facility] [address] 7t [place] [address] Care Team Providers Care Corporate Wellness Coordinator Name Role Phone Flower High MD Primary Care Pro vider Reason for Visit * Reason Comments Med Refill Encounter Details Date Type Department Care Team ([facility] st Contact Info) Description 09/27/2024 Refill [facility] MEDICINE 230 [place] [address] J Carlos Sin MD 230 [place] [address] Social History Tobacco Use Types Packs/Day Years [...] Description 01/04/2025 3:00 PM EST Clinical Support [facility] CHC MED & PEDS 505 [place] [address] Cori Dave, LAZARO 505 [place] [address] 02/25/2025 11:30 AM EST Office Visit [facility] MEDICINE 230 [place] [address] Flower High MD 230 [place] [address] 04/27/2025 3:00 PM EDT Office Visit [facility] OPTOMETRY 267 [place], [place] [phone] Mabel Fraire, CECILIA 230 [place] [address] documented as of this encounter Visit Diagnoses Not on filedocumented in this encounter Additional Health Concerns Assessment Noted Time PHQ-9 Depression Total Score: 0 09/02/19 2:30 PM EDT documented as of this encounter Care Teams Corporate Wellness Coordinator Relationship Specialty Start Date End Date Flower High MD [address] [place] [address] PCP - General Internal Medicine 07/19/22 Altranais 06/08/24 documented as of this encounter
--- OUTSIDE RECORDS SUMMARY | 2024-12-23 12:33 | XMS_ITS | Encounter Summary ---
Author Organization [employer] Address [address] [facility] [address] 7t [place] [address] Care Team Providers Care Road Inspector Name Role Phone Flower Hihg MD Primary Care Pro vider Reason for Visit * Reason Comments Med Refill Encounter Details Date Type Department Care Team (Late st Contact Info) Description 04/07/2024 Refill [facility] MEDICINE 230 [place] [address] Meredith Srinivasan MD 230 [place], [place] [phone] Chronic midline low back pain without sciatica [...] Description 01/04/2025 3:00 PM EST Clinical Support [facility] CHC MED & PEDS 505 [place] [address] Cori Dave, RN 505 [place] [address] 02/25/2025 11:30 AM EST Office Visit [facility] MEDICINE 230 [place] [address] Flower High MD 230 [place] [address] 04/27/2025 3:00 PM EDT Office Visit [facility] OPTOMETRY 267 [place] [address] Mabel Fraire, CECILIA 230 [place] [address] documented as of this encounter Visit Diagnoses Diagnosis Chronic midline low back pain without sciatica documented in this encounter Additional Health Concerns Assessment Noted Time PHQ-9 Depression Total Score: 20 024 8:46 AM EDT documented as of this encounter Care Teams Road Inspector Relationship Specialty Start Date End Date Flower High MD [address] [place] [id number] PCP - General Internal Medicine 07/19/22 Altranais 06/08/24 documented as of this encounter
--- OUTSIDE RECORDS SUMMARY | 2024-12-23 12:33 | XMS_ITS | Encounter Summary ---
Author Organization [email or web address] Address [address] [facility] 7 [place] [address] Care Team Providers Care Manufacturer Agent Name Role Phone Flower High MD Primary Care Pro vider Reason for Visit * Reason Comments Med Refill Encounter Details Date Type Department Care Team ([facility] st Contact Info) Description 01/09/2023 Refill [facility] MEDICINE 230 [place] [address] Flower Hgih MD 230 [place], [place] [phone] Type 2 diabetes mellitus without complication, unspecified whether terminal operator insulin use ([facility]) Social History Tobacco Use Types [...] the past 12 months, has t he [employer], [employer], oil or water [employer] threatened to shut off services in your [...] Description 01/04/2025 3:00 PM EST Clinical Support [facility] CHC MED & PEDS [address] [place] [address] Cori Dave, LAZARO 505 [place] [address] 02/25/2025 11:30 AM EST Office Visit [facility] MEDICINE 230 [place] [address] Flower High MD [address] [place] [address] 04/27/2025 3:00 PM EDT Office Visit [facility] OPTOMETRY [address] [place], [place] [phone] Mabel Fraire OD 230 [place] [address] documented as of this encounter Visit Diagnoses Diagnosis Type 2 diabetes mellitus without complication, unspecified whether terminal operator insulin use documented in this encounter Additional Health Concerns Assessment Noted Time PHQ-9 Depression Total Score: 0 01/07/20 23 1:19 PM EST documented as of this encounter Care Teams Manufacturer Agent Relationship Specialty Start Date End Date Flower High MD [address] [place] [address] PCP - General Internal Medicine 07/19/22 Altranais 06/08/24 documented as of this encounter
--- OUTSIDE RECORDS SUMMARY | 2024-12-23 12:34 | XMS_ITS | Clinical Summary ---
Author Organization [employer] Address [address] [facility] [address] [place] [address] Care Team Providers Care Last Waxer Name Role Phone Flower High MD Primary [...] nebulizer solutionIndicati ons:COPD with acute exacerbation (CMS/HCC) ([facility]) Take 3 mL (1.25 mg) by nebulization every 6 (six) hours if needed for wheezing. 75 mL 3 024 Active Blood Glucose Monitoring Suppl (FreeStyle [place] Lite) w/Device kitIndications:T ype 2 diabetes mellitus without complication, with long-term current use of insulin ([facility]) Use to test blood sugar [...] to underlying condition w oth circulatory comp ([facility]) Test blood sugar q 8 hours 100 each 12 024 Active pen needle 32G x 4 mm miscIndications: Type 2 diabetes mellitus without complication, with long-term current use of insulin ([facility]) Use as instructed 30 each 12 024 Active Easy Touch Lancets 33G/Twist misc TEST BLOOD SUGAR 3 TIMES A DAY DIRECTED 100 each 11 024 Active Continuous Glucose Channel Development Director (FreeStyle Erinn 3 [place]) deviceIndication s:Type 2 diabetes mellitus without complication, with long-term current use of insulin ([facility]) 1 each 3 times daily. As directed 1 each 024 Active Continuous Glucose Sensor (FreeStyle Erinn 3 Plus Sensor) miscIndications: Type 2 diabetes mellitus without complication, with long-term current use of insulin ([facility]) USE DIRECTED TO TEST BLOOD [...] complication, with long-term current use of insulin ([facility]) TEST BLOOD SUGAR THREE TIMES [...] MOUTH EVERY EVENING 90 tablet 1 Active Diclofenac Sodium 1 % gel Apply [...] 8u, 301-350: 10u 15 mL 2 Active lidocaine (Lidoderm) 5 % patchIndications :Chronic bilateral low back pain without sciatica Apply 1 patch topically Once per day. Remove & discard patch within 12 hours or as directed by MD. 30 patch 2 Active Trelegy Ellipta 200-62.5-25 [...] complication, with long-term current use of insulin ([facility]) Inject 1.5 mg under the skin 1 (one) time per week. 0.5 mL 2 Active insulin glargine (Lantus) 100 UNIT/ML injectionIndicat ions:Type 2 diabetes mellitus without complication, with long-term current use of insulin ([facility]) Inject 22 Units under the skin at bedtime. 10 mL 2 2025 Active famotidine (Pepcid) 20 MG tablet [...] 1 Active D3 Super Strength 50 MCG (1999 UT) capsule TAKE 1 CAPSULE BY MOUTH EVERY MORNING 90 capsule 1 Active cetirizine (ZyrTEC) 10 MG tablet Take 1 tablet (10 mg) by mouth in the morning. 90 tablet Active cetirizine (ZyrTEC) 10 MG tablet TAKE 1 TABLET BY MOUTH EVERY MORNING 90 tablet 025 2024 Discontinued(R eorder (will not trigger notification to Pharmacy)) oxyCODONE (Roxicodone) 5 MG immediate release tabletIndication [...] -Will monitor CBC today and refer to founding partner at next apt (anemia) Abnormal uterine bleeding 11/13/2022 Assessment & Plan (11/13/2022 7:01 AM EDT): Pt was seen at the [facility] last mo for AUB. Already referred by provider to forging die sinker. Not gone yet. gave today information to [...] apt. -colonoscopy:Per pt done in 2020 at [facility]-- ---- requested today record to Abiola Menendez [...] 11/2022 -colonoscopy:Per pt done in 2020 at [facility]-- ---- requested today record to Abiola Menendez [...] of bladder ca-thinks saw last oncologist at [place] like 5 y ago -unsure if needed [...] of bladder ca-thinks saw last oncologist at [place] like 5 y ago -unsure if needed [...] care w psychiatrist and PT-seems f w [facility] in this building -psych meds refilled by specialist Assessment & Plan (08/19/2022 5:41 PM EDT): Pt w hx of depression/anxiety and panic attacks Denies SI -continue care w psychiatrist and PT-seems f w [facility] in this building -psych meds [...] Asthma/COPD Overlap syndrome Pt is following w core driller helper -Dr Morales -last note obtained on 02/2022 [...] med -advised pt to f w her core driller helper and I printed at last apt CT chest done in 2019 with abnormal findings -not mentioned in last pulm visit note from 02/2022 -pt will f w specialist about need to repeat image if not done before Assessment & Plan (08/19/2022 6:08 PM EDT): Asthma/COPD Overlap syndrome Pt is following w core driller helper Jitendra Morales -last note obtained on 02/2022 [...] ED -advised pt to f w her core driller helper and I printed today CT chest done [...] mild JIMBO per pulm note -f w core driller helper who referred back x sleep studies -pd to have test done -DELISA Luu gave info to pt to call to reschedule apt Assessment & Plan (08/19/2022 5:30 PM EDT): Pt has JIMBO-uses CPAP at night sleep study in 2018 : mild JIMBO per pulm note -taya w core driller helper who referred back x sleep studies -pd [...] Type Department Care Team Description 12/16/2024 Refill [facility] [address] [place] [phone] Flower High MD 12/15/2024 Orders Only GENERIC EXTERNAL DATA DEPARTMENT Provider, Generic External Data 12/13/2024 Telephone [facility] [address] [place] [address] Flower High MD luz marina recall 12/07/2024 Telephone [facility] [address] [place] [address] Flower High MD Durable Medical Equipment (Commode) 11/18/2024 Telephone [facility] [address] [place] [address] Cori Dave, LAZARO 11/18/2024 Refill [facility] [address] [place] [address] Flower High MD 11/17/2024 Telephone [facility] [address] [place] [address] Cori Dave, RN Appointment Request 11/16/2024 Telephone [facility] [address] [place] [address] Flower High MD Prior Auth DME 11/15/2024 Refill [facility] [address] [place] [address] Frida Smith, DO 11/15/2024 Refill [facility] [address] [place] [address] Flower High MD Chronic bilateral low back pain without sciatica 11/14/2024 Refill [facility] [address] [place] [address] Flower High MD Chronic midline low back pain without sciatica 11/10/2024 Refill [facility] [address] [place] [address] Flower High MD Type 2 diabetes mellitus without complication, with long-term current use of insulin ([facility]) 11/02/2024 Refill [facility] [address] [place] [phone] Frida Smith, DO 10/27/2024 Telephone [facility] [address] [place] [address] Flower High MD Durable Medical Equipment 10/27/2024 Telephone [facility] [address] [place] [address] Cori Dave RN 10/26/2024 9:45 AM EDT Office Visit [facility] [address] [place] [phone] Flower High MD Osteopenia, unspecified location (Primary Dx); Type 2 diabetes mellitus without complication, with long-term current use of insulin ([facility]); Hypomagnesemia; Hypertension, unspecified type; Diabetes due to underlying condition w oth circulatory comp ([facility]); Gastroesophageal reflux disease, unspecified whether esophagitis present; Health care maintenance; Bladder CA in situ; Asthma-COPD overlap syndrome; Type 2 diabetes mellitus with retinopathy, with long-term current use of insulin, macular edema presence unspecified, unspecified laterality, unspecified retinopathy severity ([facility]) 10/26/2024 Results Follow-Up [facility] [address] [place] [address] Flower High MD POCT Glucose, POCT HGB A1C, Albumin, Random Urine W/Creatinine, Additional followed-up results: 5 10/26/2024 Results Follow-Up [facility] [address] Flower High MD POCT Hgb A1c, POCT Glucose, Magnesium 10/26/2024 Orders Only [facility] [address] Flower High MD 10/26/2024 Orders Only GENERIC EXTERNAL DATA DEPARTMENT Provider, Generic External Data 10/26/2024 Refill [facility] [address] Flower High MD Chronic bilateral low back pain without sciatica 10/26/2024 Travel 10/25/2024 Telephone [facility] [address] Flower High MD chart prerp 10/23/2024 Travel 10/21/2024 Refill [facility] [address] Flower High MD Primary hypertension 10/20/2024 Telephone [facility] [address] Flower High MD Durable Medical Equipment 10/20/2024 Refill [facility] [address] Flower High MD Routine health maintenance; Primary hypertension 09/28/2024 Telephone [facility] [address] [facility] [place] [address] Cori Dave RN 09/27/2024 Results Follow-Up [facility] [address] [place] [address] Abdomen Pelvis w/ Contrast 09/27/2024 Refill [facility] [address] [facility], [place] [phone] Flower High MD 09/27/2024 Refill [facility] [address] [place] [address] J Carlos Sin MD 09/25/2024 Orders Only [facility] External Provider, [facility] 09/22/2024 Refill [facility] [address] [place] [address] Flower High MD Chronic bilateral low back pain without sciatica from Last [...] Upcoming Encounters Date Type Department Care Team ([facility] st Contact Info) Description 01/04/2025 3:00 PM EST Clinical Support [facility] [address] [place] [address] Cori Dave, LAZARO [address] [place] [address] 02/25/2025 11:30 AM EST Office Visit [facility] [address] [place] [address] Flower High MD [address] [place] [address] 04/27/2025 3:00 PM EDT Office Visit [facility] [address] [place] [address] Mabel Fraire, OD [address] [place] [address] Health Maintenance Due Date Last Done Comments CT Colonography 1950 Dental Prophylaxis 1950 FIT DNA/Cologuard 1950 FIT 1950 FOBT 1950 Sigmoidoscopy 1950 Dental X-Ray: Bitewings 03/30/2010 03/29/2009 Colonoscopy 06/16/2022 06/16/2012 Colorectal Cancer Screening 06/16/2022 Dental Oral Exam 10/17/20234, , 07/03/2016 Diabetes: Foot Exam 09/28/2024 09/29/2023 [...] Date/Time Associated Diagnosis Comments CYTOPATH-CELL ENHANCED Routine 6:17 PM EDT URINALYSIS, COMPLETE, WITH REFLEX TO CULTURE Routine 10/26/2024 10:55 AM EDT MAGNESIUM Routine 10/26/2024 10:55 AM EDT Hypomagnesemia CBC WITH AUTO DIFFERENTIAL Routine 10/26/2024 10:55 AM EDT Eosinophilia, unspecified type VITAMIN B12/FOLATE, SERUM PANEL Routine 10/26/2024 10:55 AM EDT Type 2 diabetes mellitus without complication, with long-term current use of insulin ([facility]) LIPID PANEL, STANDARD Routine 10/26/2024 10:55 AM EDT Type 2 diabetes mellitus without complication, with long-term current use of insulin ([facility]) HEMOGLOBIN A1C Routine 10/26/2024 10:55 AM EDT Type 2 diabetes mellitus without complication, with long-term current use of insulin ([facility]) COMPREHENSIVE METABOLIC PANEL Routine 10/26/2024 10:55 AM EDT Type 2 diabetes mellitus without complication, with long-term current use of insulin ([facility]) ALBUMIN, RANDOM URINE W/CREATININE Routine 10/26/2024 10:55 AM EDT Type 2 diabetes mellitus without complication, with long-term current use of insulin ([facility]) POCT GLYCATED HEMOGLOBIN, TOTAL Routine 10/26/2024 10:20 AM EDT Type 2 diabetes mellitus without complication, with long-term current use of insulin ([facility]) POCT GLUCOSE Routine 10/26/2024 10:19 AM EDT Type 2 diabetes mellitus without complication, with long-term current use of insulin ([facility]) CT ABDOMEN PELVIS W CONTRAST Routine 09/25/2024 [...] to Health Maintenance Results * Cytopath-cell enhanced (12/15/2024 6:17 PM EDT) 12/15/2024 6:17 PM EDT 12/17/2024 6:24 AM EDT [facility] - 12/20/2024 11:23 AM EST ----- ------- Name: Carole Tapia Age/Sex: 73/F : 1950 Unit#: [id number] Attend Dr: Abran Hayes MD Re12/16/24 Status: DEP REF Location: [facility] Disch: ----- ------- SPEC : [id number] RECD: 12/17/24 STATUS: KAYE TY NUM: [id number] HONEY: 12/15/24 [facility] DR: Abran Hayes MD ENTERED: 12/17/24 SP TYPE: Cytology OT DR: Flower High MD ORDERED: Cyto-enhanced Diagnosis Urine, cytology: Negative for high-grade urothelial carcinoma. COMMENT: Review of the cytology preparation demonstrates a cellular specimen composed of squames and urothelial cells. Red blood cells are noted. There is no significant atypia seen. Clinical History Other microscopic hematuria Material Received Urine Gross Description Received is 30 cc of cloudy yellow fluid from which a ThinPrep slide is prepared. IHC S/NG Disclaimer NOTE: Unless otherwise stated, all tissue is formalin-fixed and paraffin-embedded. Some or all of the immunohistochemical tests reported herein may have been developed and their performance characteristics determined by [facility]. They have not been cleared or approved by the U.S. Food and Drug Administration (FDA). However, the FDA has determined that such clearance or approval is not necessary. This laboratory is certified under the Clinical Laboratory Improvement Amendments of 1988 (CLIA) as qualified to perform high complexity clinical laboratory testing. Copies To: Abran Hayes MD [facility] [address] [place] [address] Dr[address] [place] [address] [email or web address] For [employer] Flower High MD [address] [phone] CONTINUED ON NEXT PAGE ----- ------- Name: Carole Tapia Age/Sex: 73/F : 1950 Unit#: [id number] Attend Dr: Abran Hayes MD Re12/16/24 Status: DEP REF Location: [facility] Disch: ----- ------- SPEC : [id number] RECD: 12/17/24 STATUS: KAYE TY NUM: [id number] HONEY: 12/15/24 [facility] DR: Abran Hayes MD ENTERED: 12/17/24 SP TYPE: Cytology OTHR DR: Flower High MD ORDERED: Cyto-enhanced ----- ------- Signed (signature on file) Beatriz Wu MD 12/20/24 1123 ----- ------- END OF REPORT Generic External Data Provider LAB CYTOLOGY YURY BUTCHER Final Result Performing Organization Address [facility]/ZIP Co de Phone Number [facility] [address] [place] [phone] * Vitamin B12 (Cobalamin) and Folate Panel, Serum (10/26/2024 10:55 AM EDT) Vitamin B12 346 200 - 900 pg/mL [facility] Comment:NORMAL 200-900 PG/ML INDETERMINATE 160-199 PG/ML DEFICIENT < 160 PG/ML Folate 12.9 > or = 4.0 ng/mL [facility] Comment:Reference Values:> o r = 4.0 ng/mL< 4.0 ng/mL suggests folate deficiency Methotrexate, aminopterin and folinic acid(leucovorin) are chemotherapeutic agents whose molecularstructures are similar to folate; therefore, the Architectfolate assay cannot be used for patients using these drugs. Blood 10/26/2024 10:5 5 AM EDT 10/26/2024 11:24 AM EDT Flower Miranda MD LAB BLOOD ORDERAB LES Final Result Performing Organization Address [facility] Co de Phone Number [facility] [address] [place] [phone] * (ABNORMAL) Urinalysis, Complete, with Reflex to Culture (10/26/2024 10:55 AM EDT) Color Urine Yellow [facility] Appearance Urine Clear [facility] PH 7.0 5.0 - 9.0 [facility] Glucose Urine UA Negative Negative mg/dL [facility] Urine Blood Negative Negative [facility] Specific [place] - Urine 1.020 1.005 - 1.025 [facility] Urine Protein Negative Neg-Trace mg/dL [facility] Urine Ketones Negative Negative mg/dL [facility] Nitrite Urine Negative Negative [facility] Leukocyte Esterase Urine Trace(A) Negative [facility] RBC Urine 0-2 0 - 2 /HPF [facility] Urine WBC 0-5 0 - 5 /HPF [facility] Urine Squamous Epithelial Cell 6-10 0 - 2 /HPF [facility] Urine Bacteria Trace None Seen [facility] Hyaline Casts, Urine 0-2 0 - 2 /LPF [facility] 10/26/2024 10:5 5 AM EDT 10/26/2024 11:21 AM EDT Narrative [facility] - 10/26/2024 11:41 AM EDT Urine, Catheterized us Generic External Data Provider LAB URINE ORDERAB LES Final Result Performing Organization Address [facility] Co de Phone Number [facility] [address] [place] [phone] * Albumin, Random Urine W/Creatinine (10/26/2024 10:55 AM EDT) Creatinine, Urine 150.76 mg/dL [facility] Microalbumin Urine 6.0 mg/L [facility] Microalbum Creatinine Ratio Ur 3.9 <30 ug/mg cr [facility] Comment:Albumin/Creatinine R atio Reference Ranges: Normal: < 30 ug/mg creatinine Microalbuminuria: 30 - 300 ug/mg creatinineClinical Albuminuria: > 300 ug/mg creatinine Urine (Urine, Random) 10/26/2024 10:55 AM EDT 10/26/2024 11:21 AM EDT us Flower Miranda MD LAB URINE ORDERAB LES Final Result Performing Organization Address [facility]/ZIP Co de Phone Number [facility] [address] [place] [phone] * (ABNORMAL) CBC auto differential (10/26/2024 10:55 AM EDT) Only the most recent of2 resultswithin the time period is included. White Blood Count 8.0 4.8 - 10.8 X10*3/uL [facility] Red Blood Count 3.24(L) 4.20 - 5.50 X10*6/uL [facility] Hemoglobin 10.4(L) 12.0 - 16.0 g/dl [facility] Hematocrit 31.8(L) 37.0 - 47.0 % [facility] Mean Corpuscular Volume 98.1(H) 80.0 - 98.0 fL [facility] Mean Corpuscular Hemoglobin 32.1 27.0 - 33.0 pg [facility] Mean Corpuscular HGB Conc 32.7 31.0 - 35.0 g/dl [facility] Red Cell Distribution Width 14.1 11.0 - 16.0 % [facility] Platelet Count 336 160 - 400 X10*3/uL [facility] Mean Platelet Volume 9.1(L) 9.4 - 12.3 fL [facility] Neutrophils Percent Auto 66.5 45 - 73 % [facility] Imm Gran Pct Auto 0.4 0.0 - 0.4 % [facility] Lymphocytes Percent Auto 21.9 20 - 40 % [facility] Monocytes Percent Auto 6.8 2 - 11 % [facility] Eosinophils Percent Auto 4.1(H) 0 - 4 % [facility] Basophils Percent Auto 0.3 0 - 2 % [facility] NRBC Pct Auto 0.0 0.0 - 0.2 /100WBC [facility] Neutrophils Absolute Auto 5.3 2.0 - 8.3 x10*3/uL [facility] Imm Gran Abs Auto 0.03 0.00 - 0.03 X10*3/uL [facility] Lymphocytes Absolute Auto 1.7 1.2 - 4.9 X10*3/uL [facility] Monocytes Absolute Auto 0.5 0.1 - 1.2 X10*3/uL [facility] Eosinophils Absolute Auto 0.3 0.0 - 0.4 X10*3/uL [facility] Basophils Absolute Auto 0.0 0.0 - 0.2 X10*3/uL [facility] NRBC Abs Auto 0.000 0.0 - 0.012 X10*3/uL [facility] Blood Venous blood specimen / Unknown 10/26/2024 10:55 AM EDT 10/26/2024 11:23 AM EDT Flower Miranda MD LAB BLOOD ORDERAB LES Final Result Performing Organization Address City/[facility]/ZIP Co de Phone Number [facility] [address] [place] [phone] * (ABNORMAL) Magnesium (10/26/2024 10:55 AM EDT) Only the most recent of2 resultswithin the time period is included. Magnesium 1.5(L) 1.6 - 2.6 mg/dL [facility] Blood Venous blood specimen / Unknown 10/26/2024 10:55 AM EDT 10/26/2024 11:24 AM EDT Flower Miranda MD LAB BLOOD ORDERAB LES Final Result Performing Organization Address [facility] de Phone Number [facility] [address] [place] [phone] * (ABNORMAL) Hemoglobin A1c (10/26/2024 10:55 AM EDT) Hemoglobin A1c 7.3(H) <6.0 % [facility] Comment:Hemoglobin A1C Refer ence Range Adults: 4.8 - 6.0 % Non diabetic: < 6.0 % Goal: < 7.0 %Additional Action Suggested: > 8.0 %Note: Hemoglobin A1c results are invalid for patients with abnormal amounts of HbF. Blood transfusions may impact the HbA1c concentration in the patient sample. Estimated Average Glucose 163 mg/dL [facility] Comment:eAG = Estimated ave rage glucose which is %A1C expressed asaverage glucose, using the formula of the A3S-XrewsypWhnwiar Glucose study (ADAG), Diabetes Care, Vol.31,#8,Sep. 2007 Blood Venous blood specimen / Unknown 10/26/2024 10:55 AM EDT 10/26/2024 11:23 AM EDT us Flower Miranda MD LAB BLOOD ORDERAB LES Final Result Performing Organization Address [facility]/ZIP Co de Phone Number [facility] [address] [place] [address] [phone] * (ABNORMAL) Lipid Panel, Standard (10/26/2024 10:55 AM EDT) Triglycerides 206(H) <150 mg/dL [facility] Comment:Desirable Triglyceri de: less than 150 mg/dLBorderline High Triglyceride 150-199 mg/dLHigh Triglyceride: 200-499 mg/dLVery High Triglyceride: greater than or equal to 5OO mg/dL Cholesterol 171 <200 mg/dL [facility] Comment:Desirable Cholestero l: less than 200 mg/dLBorderline High Cholesterol: 200-239 mg/dLHigh Cholesterol: greater than 239 mg/dL LDL Cholesterol Calculated 58 <100 mg/dL [facility] Comment:Desirable LDL: less than 100 mg/dLNear Optimal/Above Optimal LDL: 110- 129 mg/dLBorderline High LDL: 130-159 mg/dLHigh LDL: 160-189 mg/dLVery High LDL: greater than or equal to 190 mg/dL HDL Cholesterol 72 >40 mg/dL [facility] Comment:Desirable HDL: great er than 40 mg/dL Note: This HDL assay may give artificially low results in patients with liver disease. Blood Venous blood specimen / Unknown 10/26/2024 10:55 AM EDT 10/26/2024 11:24 AM EDT us Flower Miranda MD LAB BLOOD ORDERAB LES Final Result Performing Organization Address City/[facility]/ZIP Co de Phone Number [facility] [address] [place] [address] [phone] * (ABNORMAL) Comprehensive Metabolic Panel (10/26/2024 10:55 AM EDT) Sodium 140 135 - 145 mmol/L [facility] Potassium 3.6 3.3 - 5.1 mmol/L [facility] Chloride 100 96 - 108 mmol/L [facility] Carbon Dioxide 31(H) 22 - 29 mmol/L [facility] Anion Gap 13 12 - 20 [facility] Urea Nitrogen (BUN) 14 9 - 16 mg/dL [facility] Creatinine, Serum 0.88 0.5 - 1.4 mg/dL [facility] Estimated Glomerular Filt Rate >60 [facility] Comment:Chronic Kidney Disea se: Estimated GFR < 60 mL/min/1.98h3Wwhtaf Kidney Disease: Estimated GFR < 15 mL/min/1.73m2 Glucose 109 60 - 115 mg/dL [facility] Calcium 9.5 8.4 - 10.2 mg/dL [facility] Bilirubin, Total 0.3 0.0 - 1.0 mg/dL [facility] Aspartate Amino Transferase 19 5 - 31 U/L [facility] Alanine Aminotransferase 18 0 - 31 U/L [facility] Total Protein 6.5 6.5 - 8.0 g/dL [facility] Albumin Level 4.2 3.5 - 5.0 g/dL [facility] Alkaline Phosphatase 56 39 - 117 U/L [facility] Blood Venous blood specimen / Unknown 10/26/2024 10:55 AM EDT 10/26/2024 11:24 AM EDT us Flower Miranda MD LAB BLOOD ORDERAB LES Final Result [facility] [address] [place] [address] [phone] * (ABNORMAL) POCT Hgb A1c (10/26/2024 10:20 AM EDT) Hemoglobin A1C 7.1(A) 4.0 - 5.7 % QC Media Lot # [id number] Lot# Expiration Date ,467,427 Blood 10/26/2024 10:2 0 AM EDT Flower Miranda MD POINT OF CARE ALIRIO T ENTER/EDIT ORDERABLES Final Result * POCT Glucose (10/26/2024 10:19 AM EDT) Glucose Blood, POC 94 60 - 200 mg/dL QC Media Lot # [id number] Lot# Expiration Date ,327,947 Blood Capillary blood specimen / Unknown 10/26/2024 10:19 AM EDT Flower Miranda MD POINT OF CARE ALIRIO T ENTER/EDIT ORDERABLES Final Result * CT Abdomen Pelvis w/ Contrast (09/25/2024 7:01 PM EDT) Anatomical Region Laterality Modality Body, Pelvis, Abdomen Computed T omography 09/25/2024 7:01 PM EDT Narrative 09/25/2024 7:03 PM EDT [place] [address] CT Scan Report Signed Patient: Carole Tapia MR#: [id number] : 1950 Acct:[id number] Age/Sex: 73 / F ADM Date: 09/25/24 Loc: HO.ED Attending Dr: Ordering Physician: Nimco Cobian MD Date of Service: 09/25/24 Procedure(s): CT abdomen pelvis w IV con Accession Number(s): [id number] cc: Nimco Cobian MD; Flower High MD Report Number: [id number]: Total DLP = 406.00 mGy-cm CLINICAL HISTORY: [...] in OV> 09/25/241901 DD/ 00 TD/TT: 09/25/241900 [employer] Damage Insurance Appraiser: Procedure Note Donotuseinterpreter, Image - 09/25/[address] [place] [address] [address] Scan Report Signed Patient: Sherrie Tapia#: [id number] : 1950cct:[id number] Age/Sex: 73 / FADM Date: 09/25/24 Loc: HO.ED Attending Dr: Ordering Physician: Nimco Cobian MD Date of Service: 09/25/24 Procedure(s): CT abdomen pelvis w IV con Accession Number(s): [id number] cc: Nimco Cobian MD; Flower High MD Report Number: [id number]: Total DLP = 406.00 mGy-cm CLINICAL HISTORY: [...] in OV> 09/25/241901 DD/ 00 TD/TT: 09/25/241900 Auto Damage Insurance Appraiser: [facility] External Provider IMG CT PROCEDURES Edited Result - Final * (ABNORMAL) VENOUS BLOOD GAS (09/25/2024 5:36 PM EDT) VBG pH 7.37 7.32 - 7.43 [facility] Comment:METER #: [id number] additional_comment: Cb moselef VBG PCO2 63 mmHg [facility] Comment:METER #: [id number] additional_comment: Cb moselef VBG PO2 40 mmHg [facility] Comment:METER #: [id number] additional_comment: Cb moselef VBG Base Excess 10.1 mmol/L [facility] Comment:METER #: [id number] additional_comment: Cb moselef VBG HCO3 37(H) 22 - 26 mmol/L [facility] Comment:METER #: [id number] additional_comment: Cb moselef O2 Sat, Sam 59.0 % [facility] Comment:METER #: [id number] additional_comment: Cb moselef 09/25/2024 5:36 PM EDT 09/25/2024 5:41 PM EDT Generic External Data Provider LAB BLOOD ORDERAB LES Final Result [facility] [address] [place] [phone] * Blood Culture (First) (09/25/2024 5:27 PM EDT) Blood Venous blood specimen / Unknown 09/25/2024 5:27 PM EDT 09/25/2024 5:32 PM EDT Comment:Blood Narrative [facility] - 09/30/2024 7:32 PM EDT Blood Culture (First) No growth after 5 days. Specimen Source: Blood us Generic External Data Provider LAB MICROBIOLOGY - GENERAL ORDERABLES Final Result Performing Organization Address [facility] Co de Phone Number [facility] [address] [place] [phone] * Blood Culture (Second) (09/25/2024 5:27 PM EDT) Blood Venous blood specimen / Unknown 09/25/2024 5:27 PM EDT 09/25/2024 5:34 PM EDT Comment:Blood Narrative [facility] - 09/30/2024 7:34 PM EDT Blood Culture (Second) No growth after 5 days. Specimen Source: Blood us Generic External Data Provider LAB MICROBIOLOGY - GENERAL ORDERABLES Final Result Performing Organization Address [facility] Co de Phone Number [facility] [address] [place] [phone] * B Type Natriuretic Peptide (BNP) (09/25/2024 5:27 PM EDT) B Type Natriuretic Peptide 24 <100 pg/mL [facility] 09/25/2024 5:27 PM EDT 09/25/2024 5:34 PM EDT us Generic External Data Provider LAB BLOOD ORDERAB LES Final Result Performing Organization Address [facility] de Phone Number [facility] [address] [place] [phone] * Lactic Acid (09/25/2024 5:27 PM EDT) Lactic Acid 1.9 0.5 - 2.0 mmol/L [facility] 09/25/2024 5:27 PM EDT 09/25/2024 5:32 PM EDT us Generic External Data Provider LAB BLOOD ORDERAB LES Final Result [facility] [address] [place] [address] [phone] * XR Chest 2 Views (09/25/2024 4:01 PM EDT) Anatomical Region Laterality Modality Chest Radiographic Janice ging 09/25/2024 4:01 PM EDT Narrative 09/25/2024 4:03 PM EDT [address] [address] XRay Report Signed Patient: Carole Tapia MR#: [id number] : 1950 Acct:[id number] Age/Sex: 73 / F ADM Date: 09/25/24 Loc: .ED Attending Dr: Ordering Physician: Cheli Harris Date of Service: 09/25/24 Procedure(s): XR chest 2V Accession Number(s): [id number] cc: Flower High MD; Cheli Harris CLINICAL HISTORY: SOB 2 view chest x-ray Comparison: CR/SR - XR CHEST 2V - 05/10/24 17:[address] [place] [id number] - 11/15/19 14:01 EDT Findings: The lungs [...] 09/25/24 1602 DD/ 1601 TD/TT: 09/25/24 1601 [employer] Damage Insurance Appraiser: Procedure Note Leelainterpreter, Image - 09/25/[address] [address] XRay Report Signed Patient: Keith TapiaR#: [id number] : 1950cct:[id number] Age/Sex: 73 / FADM Date: 09/25/24 Loc: HO.ED Attending Dr: Ordering Physician: Cheli Harris Date of Service: 09/25/24 Procedure(s): XR chest 2V Accession Number(s): [id number] cc: Flower Hgih MD; Cheli Harris CLINICAL HISTORY: SOB 2 view chest x-ray Comparison: CR/SR - XR CHEST 2V - 05/10/24 17:[address] [place] [id number] - 11/15/19 14:01 EDT Findings: The lungs [...] 09/25/24 1602 DD/ 1601 TD/TT: 09/25/24 1601 Auto Damage Insurance Appraiser: [facility] External Provider IMG XR PROCEDURES Final Result * SARS-CoV-2 RNA, Influenza A/B, and RSV RNA, Ql NAAT (09/25/2024 3:52 PM EDT) Influenza A PCR NEGATIVE Negative [facility] Influenza B PCR NEGATIVE Negative [facility] Resp Syncy Virus RNA Qual PCR NEGATIVE Negative [facility] SARS COV2 PCR NEGATIVE Negative [facility] Comment:All test results mus t be [...] use by authorized laboratories.Testing performed on the Hooked GeneXpert utilizingreal-time RT-PCR.All SARS CoV2 and positive influenza A/B results arereported to [facility]. 09/25/2024 3:52 PM EDT 09/25/2024 3:57 PM EDT Generic External Data Provider LAB MICROBIOLOGY - GENERAL ORDERABLES Final Result Performing Organization Address [facility]/ZIP Co de Phone Number [facility] [address] [place] [phone] * Lipase (09/25/2024 3:52 PM EDT) Lipase 24 8 - 78 U/L [facility] 09/25/2024 3:52 PM EDT 09/25/2024 3:57 PM EDT Generic External Data Provider LAB BLOOD ORDERAB LES Final Result Performing Organization Address [facility] de Phone Number [facility] [address] [place] [phone] * (ABNORMAL) Hepatic Function Panel (09/25/2024 3:52 PM EDT) Bilirubin, Total 0.1 0.0 - 1.0 mg/dL [facility] Bilirubin, Direct <0.2 0.0 - 0.5 mg/dL [facility] Aspartate Amino Transferase 18 5 - 31 U/L [facility] Alanine Aminotransferase 14 0 - 31 U/L [facility] Total Protein 6.2(L) 6.5 - 8.0 g/dL [facility] Albumin Level 3.8 3.5 - 5.0 g/dL [facility] Alkaline Phosphatase 54 39 - 117 U/L [facility] 09/25/2024 3:52 PM EDT 09/25/2024 3:57 PM EDT us Generic External Data Provider LAB BLOOD ORDERAB LES Final Result Performing Organization Address City/[facility]/ZIP Co de Phone Number [facility] [address] [place] [phone] * (ABNORMAL) Basic Metabolic Panel (09/25/2024 3:52 PM EDT) Sodium 143 135 - 145 mmol/L [facility] Potassium 3.4 3.3 - 5.1 mmol/L [facility] Chloride 104 96 - 108 mmol/L [facility] Carbon Dioxide 30(H) 22 - 29 mmol/L [facility] Anion Gap 12 12 - 20 [facility] Urea Nitrogen (BUN) 13 9 - 16 mg/dL [facility] Creatinine, Serum 0.95 0.5 - 1.4 mg/dL [facility] Creatinine Clr Calc Pharmacy 42.2 [facility] Comment:Provided height and weight: 149.86 cm,58.2 kg.eGFR (calculated from the MDRD study equation) and eCrCl(calculated from the Cockcroft-Gault equation) are based ondifferent parameters and may not yield comparable results.If eCrCl result is absurd, please check patient'sheight/weight. Estimated Glomerular Filt Rate 58 [facility] Comment:Chronic Kidney Disea se: Estimated GFR < 60 mL/min/1.76g8Nsfczs Kidney Disease: Estimated GFR < 15 mL/min/1.73m2 Glucose 101 60 - 115 mg/dL [facility] Calcium 9.0 8.4 - 10.2 mg/dL [facility] 09/25/2024 3:52 PM EDT 09/25/2024 3:57 PM EDT us Generic External Data Provider LAB BLOOD ORDERAB LES Final Result Performing Organization Address City/[facility]/ZIP Co de Phone Number [facility] [address] [place] [phone] * Hepatitis C Antibody with Reflex [...] Final Result [facility] [address] [place] [phone] * BI Mammogram Screening Tomosynthesis Bilateral (12/25/2023 12:35 PM EST) Anatomical Region Laterality Modality Breast Bilateral Mammography 12/25/2023 12:3 5 PM EST Narrative 01/02/2024 4:11 PM EST [facility] [address] [place] [address] Mammography Report Signed Patient: Carole Tapia MR#: [id number] : 1950 Acct:[id number] Age/Sex: 72 / F ADM Date: 12/25/23 Loc: HO.MAMMO Attending Dr: Flower Miranda MD Ordering Physician: Flower High MD Re sults: 2Benign Findings Date of Service: 12/25/23 Follow Up: 1 Year From [facility] Mammogram Procedure(s): MM tomosynthesis screening BI Accession Number(s): [id number] cc: Flower High MD EXAMINATION: MM SCREENING [...] 01/02/24 1608 DD/ 1235 TD/TT: 12/25/23 1253 Auto Damage Insurance Appraiser: Procedure Note Donotuseinterpreter, Image - 01/02/2024 [facility] [address] [place], [place] [address] Mammography Report Signed Patient: Sherrie Tapia#: [id number] : 1950cct:[id number] Age/Sex: 72 / FADM Date: 12/25/23 Loc: HO.MAMMO Attending Dr: Flower Miranda MD Ordering Physician: Flower High sults: 2Benign Findings Date of Service: 12/25/23Follow Up: 1 Year From Orig ina Mammogram Procedure(s): MM tomosynthesis screening BI Accession Number(s): [id number] cc: Flower High MD EXAMINATION: MM SCREENING [...] 01/02/24 1608 DD/ 1235 TD/TT: 12/25/23 1253 Auto Damage Insurance Appraiser: Flower Miranda MD IMG BI PROCEDURES Final Result * Referral to Podiatry (09/29/2023) Flower Miranda MD OUTPATIENT REFERR AL ORDERABLES Final Result * Colonoscopy (06/16/2012) Colonoscopy Normal Normal Historical Provider HEALTH MAINTENANCE Final Result from Last 3 Months or Most Recently Relevant to Health Maintenance Insurance [facility] OPTIONS (O D-SNP) MARKEL BORGES [id number] D[facility]AL - [facility] Care Teams Last Waxer Relationship Specialty Start Date End Date Flower High MD [address] [place] [phone] PCP - General Internal Medicine 07/19/22 Altranais 06/08/24
--- OUTSIDE RECORDS SUMMARY | 2024-12-23 12:34 | XMS_ITS | Encounter Summary ---
Author Organization [employer] Address [address] [place] [address] Care Team Providers Care Ip Counsel Name Role Phone Flower High MD Primary Care Pro vider Encounter Details Date Type Department Care Team (Late st Contact Info) Description 12/15/2024 Orders Only GENERIC EXTERNAL DATA DEPARTMENT [...] [facility] [address] [place] [address] Cori Dave, LAZARO [address] [place] [address] 02/25/2025 11:30 AM EST Office Visit [facility] MEDICINE [address] [place] [address] Flower High MD [address] [place] [address] 04/27/2025 3:00 PM EDT Office Visit [facility] OPTOMETRY [address] [place] [address] Mabel Fraire, OD [address] [place] [address] documented as of this encounter Procedures Procedure Name Priority Date/Time Associated Diagnosis Comments CYTOPATH-CELL ENHANCED Routine 12/15/2024 6:17 PM EDT documented in this encounter Results * Cytopath-cell enhanced (12/15/2024 6:17 PM EDT) 12/15/2024 6:17 PM EDT 12/17/2024 6:24 AM EDT Chandana [facility] - 12/20/2024 11:23 AM EST ----- ------- Name: Carole Tapia Age/Sex: 73/F : 1950 Unit#: [id number] Attend Dr: Abran Hayes MD Re12/16/24 Status: DEP [facility] ----- ------- SPEC : [id number] RECD: 12/17/24 STATUS: KAYE TY NUM: [id number] HONEY: 12/15/[address] [facility] [address]: Abran Hayes MD ENTERED: 12/17/24 [...] developed and their performance characteristics determined by [facility]. They have not been cleared or approved by the U.S. Food and Drug Administration (FDA). However, the FDA has determined that such clearance or approval is not necessary. This laboratory is certified under the Clinical Laboratory Improvement Amendments of 1988 (CLIA) as qualified to perform high complexity clinical laboratory testing. Copies To: Abran Hayes MD [facility] [address] [place] [address] Dr. [place] [place] [address] [email or web address] Flower High MD [address] [address] CONTINUED ON NEXT PAGE ----- ------- Name: Carole Tapia Age/Sex: 73/F : 1950 Unit#: [id number] Attend Dr: Abran Hayes MD Re12/16/24 Status: DEP [facility] ----- ------- SPEC : [id number] RECD: 12/17/24 STATUS: KAYE TY NUM: [id number] HONEY: 12/15/[address] [facility] [address]: Abran Hayes MD ENTERED: 12/17/24 SP TYPE: Cytology OTHR DR: Flower High MD ORDERED: Cyto-enhanced ----- ------- Signed (signature on file) Beatriz Wu MD 12/20/24 1123 ----- ------- END OF REPORT Generic External Data Provider LAB [facility] YURY BUTCHER Final Result [facility] [address] [place] [address] [phone] documented in this encounter Visit Diagnoses Not on filedocumented in this encounter Additional Health Concerns Assessment Noted Time PHQ-9 Depression Total Score: 0 09/02/19 25 2:30 PM EDT documented as of this encounter Care Teams Ip Counsel Relationship Specialty Start Date End Date Flower High MD [address] [place] [phone] PCP - General Internal Medicine 07/19/22 Altranais 06/08/24 documented as of this encounter
== END 2024-12-23 11:12 | disposition home or self-care (01) ==
LOC: HO.HCS 10:32
PROVIDERS: Family Provider Student in an Organized Health Care Education/Training Program; Visit Provider Internal Medicine
DX: I25.10 Atherosclerotic heart disease of native coronary artery without angina pectoris (principal); R07.2 Precordial pain
CPT/HCPCS: 99214; G2211

== ENCOUNTER → 2024-12-23 10:31 | Outpatient (BNVA) | payer OTHER, SELFPAY | PROVIDERS: Family Provider Student in an Organized Health Care Education/Training Program; Visit Provider Internal Medicine | DX: R07.2 Precordial pain (principal); I25.10 Atherosclerotic heart disease of native coronary artery without angina pectoris | CPT/HCPCS: 99212 ==

== ENCOUNTER 2025-01-29 18:56 | Emergency (ER) | payer OTHER, SELFPAY ==
--- NOTE | 2025-01-29 | ECG_ITS ---
Test Reason : ABD PAIN Blood Pressure : */* mmHG Vent. Rate : 96 BPM Atrial Rate : 96 BPM P-R Int : 126 ms QRS Dur : 80 ms QT Int : 352 ms P-R-T Axes : 55 10 67 degrees QTcB Int : 444 ms Sinus rhythm Otherwise normal ECG When compared with ECG of 25-Sep-2024 15:40, No significant changes seen Referred By: Generic ED Physician Electronically Signed By: YOUSIF MATHIS MD
--- NOTE | ~2025-01-29 | XR_ITS ---
CLINICAL HISTORY: pain constipation 1 view abdomen Comparison: CT abdomen and pelvis 09/25/2024 Findings: No gas distended loops of small bowel. No air-fluid levels. Moderate constipation. No acute soft tissue or osseous abnormality. Visualized lung bases are unremarkable. No free air. Impression: 1. Moderate constipation otherwise no acute findings. This document has been electronically signed by: Poncho Calabrese MD on 01/29/2025 23:42:33
[2025-01-29 19:01] VITALS: BP 128/66; BP 133/67; PULSE 94; RESP 20; TEMP 36.8; O2SAT 94; BMI 24.9
[2025-01-29 19:20] LABS: Hematocrit 36.2 % (37.0-47.0); Hemoglobin 11.7 g/dl (12.0-16.0); Imm Gran Abs Auto 0.02 X10*3/uL (0.00-0.03); Imm Gran Pct Auto 0.3 % (0.0-0.4); Lymphocytes Absolute Auto 0.5 X10*3/uL (1.2-4.9); MANUAL DIFF FLAG SCAN; Mean Corpuscular HGB Conc 32.3 g/dl (31.0-35.0); Mean Corpuscular Hemoglobin 31.0 pg (27.0-33.0); Mean Corpuscular Volume 95.8 fL (80.0-98.0); NRBC Abs Auto 0.000 X10*3/uL (0.0-0.012); NRBC Pct Auto 0.0 /100WBC (0.0-0.2); Platelet Count 473 X10*3/uL (160-400); Red Blood Count 3.78 X10*6/uL (4.20-5.50); SCAN SMEAR FLAG 1; White Blood Count 7.9 X10*3/uL (4.8-10.8)
[2025-01-29 19:33] LABS: Alanine Aminotransferase 18 U/L (0-31); Albumin Level 4.2 g/dL (3.5-5.0); Alkaline Phosphatase 77 U/L (39-117); Anion Gap 15 (12-20); Aspartate Amino Transferase 26 U/L (5-31); Blood Urea Nitrogen 16 mg/dL (9-16); Calcium 9.6 mg/dL (8.4-10.2); Carbon Dioxide 25 mmol/L (22-29); Chloride 104 mmol/L (96-108); Creatinine Clr Calc Pharmacy 37.8; Estimated Glomerular Filt Rate 50; Lipase 18 U/L (8-78); Magnesium 1.7 mg/dL (1.6-2.6); Potassium 5.4 mmol/L (3.3-5.1); Sodium 139 mmol/L (135-145); Total Protein 6.7 g/dL (6.5-8.0)
[2025-01-29 19:37] VITALS: BP 111/55; PULSE 99; RESP 21; TEMP 36.7; O2SAT 97
[2025-01-29 19:42] LABS: Troponin-I High Sensitivity < 2.7 ng/L (<3.5-17.0)
--- OUTSIDE RECORDS SUMMARY | 2025-01-29 19:57 | XMS_ITS | Encounter Summary ---
Author Organization [employer] Address [address] [facility] 7t [place] [address] Care Team Providers Care Skinning Machine Feeder Name Role Phone Flower High MD Primary Care Pro vider Reason for Visit * Reason Comments Med Refill Encounter Details Date Type Department Care Team ([facility] st Contact Info) Description 05/30/2023 Refill [facility] MEDICINE [address] [place] [address] Flower High MD [address] [place] [address] Chronic midline low back pain without sciatica [...] Care Team (Late st Contact Info) Description 02/25/2025 11:30 AM EST Office Visit [facility] MEDICINE [address] [place] [address] Flower High MD [address] [place] [address] 04/27/2025 3:00 PM EDT Office Visit [facility] OPTOMETRY [address] [place], [place] [phone] Juno, Mabel, OD [address] [place] [address] documented as of this encounter Visit Diagnoses Diagnosis Chronic midline low back pain without sciatica documented in this encounter Additional Health Concerns Assessment Noted Time PHQ-9 Depression Total Score: 0 01/07/20 23 1:19 PM EST documented as of this encounter Care Teams Skinning Machine Feeder Relationship Specialty Start Date End Date Flower High MD [address] [place] [address] PCP - General Internal Medicine 07/19/22 Ashok 06/08/24 documented as of this encounter
--- OUTSIDE RECORDS SUMMARY | 2025-01-29 19:57 | XMS_ITS | Encounter Summary ---
Author Organization [employer] Address [address] [place] [address] Care Team Providers Care Rn Medication Name Role Phone Flower High MD Primary Care Pro vider Reason for Visit * Reason Comments Med Refill Encounter Details Date Type Department Care Team (Late st Contact Info) Description 11/02/2024 Refill [facility] [address] [place] [address] Frida Smith DO [address] [place] [address] Social History Tobacco Use Types Packs/Day Years [...] Description 02/25/2025 11:30 AM EST Office Visit [facility] MEDICINE [address] [place] [address] Flower High MD [address] [place] [phone] 04/27/2025 3:00 PM EDT Office Visit [facility] OPTOMETRY [address] [place] [address] Juno, Mabel, OD [address] [place] [address] documented as of this encounter Visit Diagnoses Not on filedocumented in this encounter Additional Health Concerns Assessment Noted Time PHQ-9 Depression Total Score: 0 09/02/19 25 2:30 PM EDT documented as of this encounter Care Teams Rn Medication Relationship Specialty Start Date End Date Flower High MD [address] [place] [address] PCP - General Internal Medicine 07/19/22 Altranais 06/08/24 documented as of this encounter
--- OUTSIDE RECORDS SUMMARY | 2025-01-29 19:57 | XMS_ITS | Encounter Summary ---
Author Organization [employer] Address [address] [place] [address] Care Team Providers Care Education Technician Name Role Phone Flower High MD Primary Care Pro vider Reason for Visit * Reason Comments Med Refill Encounter Details Date Type Department Care Team (Late st Contact Info) Description 12/25/2024 Refill [facility] [address] [place] [address] Arnel Lawrence MD [address] [place] [address] Social History Tobacco Use Types Packs/Day Years [...] Description 02/25/2025 11:30 AM EST Office Visit [facility] MEDICINE [address] [place] [address] Flower High MD [address] [place] [address] 04/27/2025 3:00 PM EDT Office Visit [facility] OPTOMETRY [address] [place] [address] Juno, Mabel, OD [address] [place] [address] documented as of this encounter Visit Diagnoses Not on filedocumented in this encounter Additional Health Concerns Assessment Noted Time PHQ-9 Depression Total Score: 0 09/02/19 25 2:30 PM EDT documented as of this encounter Care Teams Education Technician Relationship Specialty Start Date End Date Flower High MD [address] [place] [address] PCP - General Internal Medicine 07/19/22 Altranais 06/08/24 documented as of this encounter
--- OUTSIDE RECORDS SUMMARY | 2025-01-29 19:57 | XMS_ITS | Encounter Summary ---
Author Organization [employer] Address [address] [facility] [address] [place] [address] Care Team Providers Care Medical Legal Investigator Name Role Phone Flower High MD Primary Care Pro vider Encounter Details Date Type Department Care Team (Late st Contact Info) Description 03/05/2023 Orders Only [facility] [address] [place] [address] Flower High MD [address] [place] [address] Social History Tobacco Use Types Packs/Day Years [...] Description 02/25/2025 11:30 AM EST Office Visit [facility] MEDICINE [address] [place] [address] Flower High MD [address] [place] [address] 04/27/2025 3:00 PM EDT Office Visit [facility] OPTOMETRY [address] [place] [address] Juno, Mabel, OD [address] [place] [address] documented as of this encounter Visit Diagnoses Not on filedocumented in this encounter Additional Health Concerns Assessment Noted Time PHQ-9 Depression Total Score: 0 01/07/20 23 1:19 PM EST documented as of this encounter Care Teams Medical Legal Investigator Relationship Specialty Start Date End Date Flower High MD [address] [place] [phone] PCP - General Internal Medicine 07/19/22 Altranais 06/08/24 documented as of this encounter
--- OUTSIDE RECORDS SUMMARY | 2025-01-29 19:57 | XMS_ITS | Encounter Summary ---
Author Organization [employer] Address [address] [place] [address] [address], [place] [address] Care Team Providers Care Porcelain Finish Sprayer Name Role Phone Claudette Lorenzo RADHA Primary Care Provider [phone] Flower High MD Primary Care Pro vider Encounter Details Date Type Department Care Team (Late Contact Info) Description 03/18/2022 Orders Only [facility] MEDICINE [address] [place] [address] [phone] Karlene Dow LPN Social History Tobacco Use [...] Department Care Team (Late Contact Info) Description 02/25/2025 11:30 AM EST Office Visit [facility] MEDICINE [address] [place], [place] [phone] Flower High MD [address] [place], [place] [phone] 04/27/2025 3:00 PM EDT Office Visit [facility] OPTOMETRY [address] [place], [place] [phone] Mabel Fraire, OD [address] [place] [address] documented as of this encounter Visit Diagnoses Not on filedocumented in this encounter Care Teams Porcelain Finish Sprayer Relationship Specialty Start Date End Date Claudette Lorenzo FNP [address] [place] [address] PCP - General Family Medicine 10/11/21 07/18/22 Flower High MD [address] [place] [address] PCP - General Internal Medicine 07/19/22 Hermannranais 06/08/24 documented as of this encounter
--- OUTSIDE RECORDS SUMMARY | 2025-01-29 19:57 | XMS_ITS | Encounter Summary ---
Author Organization [employer] Address [address] [facility] 7 [place] [address] Care Team Providers Care Help Desk Intern Name Role Phone Flower High MD Primary Care Pro vider Reason for Visit * Reason Onset Date Comments Appointment Request 12/30/2024 Encounter Details Date Type Department Care Team ([facility] st Contact Info) Description 12/30/2024 Telephone [facility] MEDICINE [address] [place] [address] Flower High MD [address] [place], [place] [phone] Appointment Request Social History Tobacco Use Types Packs/Day Years [...] encounter Miscellaneous Notes * Telephone Encounter - Flako Harris - 12/30/2024 3:26 PM EST Tc from pt requesting to reschedule canceled apt that was scheduled on 01/04 Contact pt at [phone] (turkmen) documented in this encounter Plan of Treatment Upcoming Encounters Date Type Department Care Team ([facility] st Contact Info) Description 02/25/2025 11:30 AM EST Office Visit [facility] MEDICINE [address] [place] [address] Flower High MD [address] [place] [address] 04/27/2025 3:00 PM EDT Office Visit [facility] OPTOMETRY [address] [place] [address] Mabel Fraire, OD [address] [place] [address] documented as of this encounter Goals Goal Patient Goal Type Associated Problems Recent Progress Patient-Stated? Author Help patients manage their type 2 diabetes Care Plan Help patients manage their type 2 diabetes No Flako Moore Weekly blood pressure task Care Plan Weekly blood pressure task No Flako Moore Help patients manage their type 2 diabetes Care Plan Help patients manage their type 2 diabetes No Flako Moore Patient has diabetic eye disease Care Plan Patient has diabetic eye disease No Flako Moore Help patients manage their type 2 diabetes Care Plan Help patients manage their type 2 diabetes No Flako Moore Patient has chronic kidney disease Care Plan Patient has chronic kidney disease No Flako Moore Weekly blood pressure task Care Plan Weekly blood pressure task No Flako Moore Weekly blood pressure task Care Plan Weekly blood pressure task No Flako Moore Patient has diabetic eye disease Care Plan Patient has diabetic eye disease No Flako Moore Patient has diabetic eye disease Care Plan Patient has diabetic eye disease No Flako Moore Patient has chronic kidney disease Care Plan Patient has chronic kidney disease No Flako Moore Patient has chronic kidney disease Care Plan Patient has chronic kidney disease No Flako Moore Weekly blood pressure task Care Plan Weekly blood pressure task No Cori Dave RN Weekly blood pressure task Care Plan Weekly blood pressure task No Cori Dave RN Weekly blood pressure task Care Plan Weekly blood pressure task No Croi Dave RN Patient has diabetic eye disease Care Plan Patient has diabetic eye disease No Cori Dave RN Patient has diabetic eye disease Care Plan Patient has diabetic eye disease No Cori Dave RN Patient has diabetic eye disease Care Plan Patient has diabetic eye disease No Cori Dave RN Patient has chronic kidney disease Care Plan Patient has chronic kidney disease No Cori Dave RN Patient has chronic kidney disease Care Plan Patient has chronic kidney disease No Cori Dave RN Patient has chronic kidney disease Care Plan Patient has chronic kidney disease No Cori Dave RN documented as of this encounter Visit Diagnoses Not on filedocumented in this encounter Additional Health Concerns Active Problems Noted Date Diagnosed Date Help patients manage their type 2 diabetes 12/30 Weekly blood pressure task 12/30/2024 Help patients manage their type 2 diabetes 12/30 Patient has diabetic eye disease 12/30/2024 Help patients manage their type 2 diabetes 12/30 Patient has chronic kidney disease 12/30/2024 Weekly blood pressure task 12/30/2024 Weekly blood pressure task 12/30/2024 Patient has diabetic eye disease 12/30/2024 Patient has diabetic eye disease 12/30/2024 Patient has chronic kidney disease 12/30/2024 Patient has chronic kidney disease 12/30/2024 Weekly blood pressure task 12/30/2024 Weekly blood pressure task 12/30/2024 Weekly blood pressure task 12/30/2024 Patient has diabetic eye disease 12/30/2024 Patient has diabetic eye disease 12/30/2024 Patient has diabetic eye disease 12/30/2024 Patient has chronic kidney disease 12/30/2024 Patient has chronic kidney disease 12/30/2024 Patient has chronic kidney disease 12/30/2024 Assessment Noted Time PHQ-9 Depression Total Score: 0 09/02/19 25 2:30 PM EDT documented as of this encounter Care Teams Help Desk Intern Relationship Specialty Start Date End Date Flower High MD [address] [place] [id number] PCP - General Internal Medicine 07/19/22 Altranais 06/08/24 documented as of this encounter
--- OUTSIDE RECORDS SUMMARY | 2025-01-29 19:57 | XMS_ITS | Encounter Summary ---
Author Organization [employer] Address [address] [facility] 7 [place] [address] Care Team Providers Care Taper Operator Name Role Phone Flower High MD Primary Care Pro vider Reason for Visit * Reason Comments Med Refill Encounter Details Date Type Department Care Team ([facility] st Contact Info) Description 01/09/2023 Refill [facility] MEDICINE [address] [place] [address] Flower High MD 230 [place], [place] [phone] Type 2 diabetes mellitus without complication, unspecified whether detention insulin use ([facility]) Social History Tobacco Use Types Packs/Day [...] the past 12 months, has t he [employer], gas, oil or water [employer] threatened to shut off services in your [...] Description 02/25/2025 11:30 AM EST Office Visit [facility] MED[facility]INE [address] [place] [address] Flower High MD [address] [place] [address] 04/27/2025 3:00 PM EDT Office Visit [facility] OPTOMETRY [address] [place] [address] Juno, Mabel, OD 230 [place] [address] documented as of this encounter Visit Diagnoses Diagnosis Type 2 diabetes mellitus without complication, unspecified whether long term care administrator insulin use documented in this encounter Additional Health Concerns Assessment Noted Time PHQ-9 Depression Total Score: 0 01/07/20 23 1:19 PM EST documented as of this encounter Care Teams Taper Operator Relationship Specialty Start Date End Date Flower High MD [address] [place] [address] PCP - General Internal Medicine 07/19/22 Altranais 06/08/24 documented as of this encounter
--- OUTSIDE RECORDS SUMMARY | 2025-01-29 19:57 | XMS_ITS | Encounter Summary ---
Author Organization [employer] Address [address] [facility] [address] 7[address] [place] [address] Care Team Providers Care Expediter Service Order Name Role Phone Flower High MD Primary Care Pro vider Encounter Details Date Type Department Care Team (Late st Contact Info) Description 05/20/2024 Orders Only [facility] MEDICINE [address] [place], [place] [phone] Flower High MD 230 [place], [place] [phone] Type 2 diabetes mellitus without complication, with long-term current use of insulin ([facility]) Social History Tobacco Use Types Packs/Day [...] Description 02/25/2025 11:30 AM EST Office Visit [facility] MEDICINE [address] [place] [address] Flower High MD [address] [place] [address] 04/27/2025 3:00 PM EDT Office Visit [facility] OPTOMETRY [address] [place] [address] Mabel Fraire, OD 230 [place] [address] documented as of this encounter Visit Diagnoses Diagnosis Type 2 diabetes mellitus without complication, with long-term current use of insulin (HCC) documented in this encounter Additional Health Concerns Assessment Noted Time PHQ-9 Depression Total Score: 20 024 8:46 AM EDT documented as of this encounter Care Teams Expediter Service Order Relationship Specialty Start Date End Date Flower High MD [address] [place] [id number] PCP - General Internal Medicine 07/19/22 Altranais 06/08/24 documented as of this encounter
--- OUTSIDE RECORDS SUMMARY | 2025-01-29 19:57 | XMS_ITS | Encounter Summary ---
Author Organization [employer] Address [address] [facility] 7 [place] [address] Care Team Providers Care Chemical Laboratory Tester Name Role Phone Flower High MD Primary Care Pro vider Reason for Visit * Reason Comments Med Refill Encounter Details Date Type Department Care Team ([facility] st Contact Info) Description 11/10/2024 Refill [facility] MEDICINE 230 [place] [address] Flower High MD 230 [place], [place] [phone] Type 2 diabetes mellitus without complication, with long-term current use of insulin ([facility]) Social History Tobacco Use Types [...] the past 12 months, has t he [employer], gas, oil or water [employer] threatened to shut off services in your [...] Description 02/25/2025 11:30 AM EST Office Visit [facility] MED[facility]INE [address] [place] [address] Flower High MD [address] [place] [address] 04/27/2025 3:00 PM EDT Office Visit [facility] OPTOMETRY [address] [place] [address] Juno, Mabel, OD [address] [place] [address] documented as of this encounter Visit Diagnoses Diagnosis Type 2 diabetes mellitus without complication, with long-term current use of insulin (HCC) documented in this encounter Additional Health Concerns Assessment Noted Time PHQ-9 Depression Total Score: 0 09/02/19 25 2:30 PM EDT documented as of this encounter Care Teams Chemical Laboratory Tester Relationship Specialty Start Date End Date Flower High MD [address] [place] [id number] PCP - General Internal Medicine 07/19/22 Hermannranais 06/08/24 documented as of this encounter
--- OUTSIDE RECORDS SUMMARY | 2025-01-29 19:57 | XMS_ITS | Encounter Summary ---
Author Organization [employer] Address [address] [facility] [address] 7[address] [place] [address] Care Team Providers Care Metaphysician Name Role Phone Flower High MD Primary Care Pro vider Reason for Visit * Reason Comments Med Refill Encounter Details Date Type Department Care Team (Late st Contact Info) Description 04/07/2024 Refill [facility] MEDICINE [address] [place] [address] Meredith Srinivasan MD 230 [place], [place] [phone] Chronic midline low back pain without sciatica [...] 11:30 AM EST Office Visit [facility] MEDICINE [address] [place] [address] Flower High MD [address] [place] [address] 04/27/2025 3:00 PM EDT Office Visit [facility] OPTOMETRY [address] [place] [address] Juno, Mabel, OD [address] [place] [address] documented as of this encounter Visit Diagnoses Diagnosis Chronic midline low back pain without sciatica documented in this encounter Additional Health Concerns Assessment Noted Time PHQ-9 Depression Total Score: 20 024 8:46 AM EDT documented as of this encounter Care Teams Metaphysician Relationship Specialty Start Date End Date Flower High MD [address] [place] [id number] PCP - General Internal Medicine 07/19/22 Altranais 06/08/24 documented as of this encounter
--- OUTSIDE RECORDS SUMMARY | 2025-01-29 19:57 | XMS_ITS | Encounter Summary ---
Author Organization [employer] Address [address] [facility] [address] 7[address] [place] [address] Care Team Providers Care Caddy Name Role Phone Flower High MD Primary Care Pro vider Reason for Visit * Reason Comments Med Refill Encounter Details Date Type Department Care Team (Late st Contact Info) Description 01/26/2025 Refill [facility] MEDICINE [address] [place] [address] Carli Sanabria, ANP 230 [place], [place] [phone] Chronic bilateral low back pain without sciatica [...] 11:30 AM EST Office Visit [facility] MEDICINE [address] [place] [address] Flower High MD 230 [place] [address] 04/27/2025 3:00 PM EDT Office Visit [facility] OPTOMETRY [address] [place] [address] Mabel Fraire, CECILIA 230 [place] [address] documented as of this encounter Goals Goal [...] blood pressure task No Cori Dave RN Patient has diabetic [...] chronic kidney disease No Cori Dave RN Weekly blood pressure task Care Plan Weekly blood pressure task No Maren Crocker Weekly blood pressure task Care Plan Weekly blood pressure task No Maren Crocker Weekly blood pressure task Care Plan Weekly blood pressure task No Maren Crocker Patient has diabetic eye disease Care Plan Patient has diabetic eye disease No Maren Crocker Patient has diabetic eye disease Care Plan Patient has diabetic eye disease No Maren Crocker Patient has diabetic eye disease Care Plan Patient has diabetic eye disease No Crocker, Maren Patient has chronic kidney disease Care Plan Patient has chronic kidney disease No Crocker, Maren Patient has chronic kidney disease Care Plan Patient has chronic kidney disease No Crocker, Maren Patient has chronic kidney disease Care Plan Patient has chronic kidney disease No Crocker, Maren Weekly blood pressure task Care Plan Weekly blood pressure task No Dow, Karlene, AGRICULTURAL EQUIPMENT TEST ENGINEER Weekly blood pressure task Care Plan Weekly blood pressure task No Dow, Karlene, AGRICULTURAL EQUIPMENT TEST ENGINEER Weekly blood pressure task Care Plan Weekly blood pressure task No Dow, Karlene, AGRICULTURAL EQUIPMENT TEST ENGINEER Patient has diabetic eye disease Care Plan Patient has diabetic eye disease No Dow, Karlene, AGRICULTURAL EQUIPMENT TEST ENGINEER Patient has diabetic eye disease Care Plan Patient has diabetic eye disease No Dow, Karlene, AGRICULTURAL EQUIPMENT TEST ENGINEER Patient has diabetic eye disease Care Plan Patient has diabetic eye disease No Dow, Karlene, AGRICULTURAL EQUIPMENT TEST ENGINEER Patient has chronic kidney disease Care Plan Patient has chronic kidney disease No Dow, Karlene, AGRICULTURAL EQUIPMENT TEST ENGINEER Patient has chronic kidney disease Care Plan Patient has chronic kidney disease No Dow, Karlene, AGRICULTURAL EQUIPMENT TEST ENGINEER Patient has chronic kidney disease Care Plan Patient has chronic kidney disease No Dow, Karlene, AGRICULTURAL EQUIPMENT TEST ENGINEER Weekly blood pressure task Care Plan Weekly blood pressure task No Flower High MD Weekly blood pressure task Care Plan Weekly blood pressure task No Flower High MD Weekly blood pressure task Care Plan Weekly blood pressure task No Flower High MD Patient has diabetic eye disease Care Plan Patient has diabetic eye disease No Flower High MD Patient has diabetic eye disease Care Plan Patient has diabetic eye disease No Flower High MD Patient has diabetic eye disease Care Plan Patient has diabetic eye disease No Flower High MD Patient has chronic kidney disease Care Plan Patient has chronic kidney disease No Flower High MD Patient has chronic kidney disease Care Plan Patient has chronic kidney disease No Flower High MD Patient has chronic kidney disease Care Plan Patient has chronic kidney disease No Flower High MD Weekly blood pressure task Care Plan Weekly blood pressure task No Frida George PharmD Weekly blood pressure task Care Plan Weekly blood pressure task No George, Frida, PharmD Weekly blood pressure task Care Plan Weekly blood pressure task No Frida George PharmD Patient has diabetic eye disease Care Plan Patient has diabetic eye disease No Frida George PharmD Patient has diabetic eye disease Care Plan Patient has diabetic eye disease No Frida George, PharmD Patient has diabetic eye disease Care Plan Patient has diabetic eye disease No Frida George, PharmD Patient has chronic kidney disease Care Plan Patient has chronic kidney disease No Frida George PharmD Patient has chronic kidney disease Care Plan Patient has chronic kidney disease No Frida George, PharmD Patient has chronic kidney disease Care Plan Patient has chronic kidney disease No Frida George PharmD Weekly blood pressure task Care Plan Weekly blood pressure task No Albaro Agnes Weekly blood pressure task Care Plan Weekly blood pressure task No Albaro Agnes Weekly blood pressure task Care Plan Weekly blood pressure task No Albaro Agnes Patient has diabetic eye disease Care Plan Patient has diabetic eye disease No Albaro Agnes Patient has diabetic eye disease Care Plan Patient has diabetic eye disease No Albaro Agnes Patient has diabetic eye disease Care Plan Patient has diabetic eye disease No Albaro, Agnes Patient has chronic kidney disease Care Plan Patient has chronic kidney disease No Albaro Agnes Patient has chronic kidney disease Care Plan Patient has chronic kidney disease No Albaro, Agnes Patient has chronic kidney disease Care Plan Patient has chronic kidney disease No Albaro Agnes Weekly blood pressure task Care Plan Weekly blood pressure task No Cori Dave RN Weekly blood pressure task Care Plan Weekly blood pressure task No Cori Dave RN Weekly blood pressure task Care Plan Weekly blood pressure task No Cori Dave RN Patient has diabetic [...] Plan Patient has chronic kidney disease No McMann, Cori, RN documented as of this encounter Visit Diagnoses Diagnosis Chronic bilateral low back pain without sciatica documented in this encounter Additional Health Concerns Active [...] kidney disease 12/30/2024 Weekly blood pressure task 01/03/2025 Weekly blood pressure task 01/03/2025 Weekly blood pressure task 01/03/2025 Patient has diabetic eye disease 01/03/2025 Patient has diabetic eye disease 01/03/2025 Patient has diabetic eye disease 01/03/2025 Patient has chronic kidney disease 01/03/2025 Patient has chronic kidney disease 01/03/2025 Patient has chronic kidney disease 01/03/2025 Weekly blood pressure task 01/10/2025 Weekly blood pressure task 01/10/2025 Weekly blood pressure task 01/10/2025 Patient has diabetic eye disease 01/10/2025 Patient has diabetic eye disease 01/10/2025 Patient has diabetic eye disease 01/10/2025 Patient has chronic kidney disease 01/10/2025 Patient has chronic kidney disease 01/10/2025 Patient has chronic kidney disease 01/10/2025 Weekly blood pressure task 01/11/2025 Weekly blood pressure task 01/11/2025 Weekly blood pressure task 01/11/2025 Patient has diabetic eye disease 01/11/2025 Patient has diabetic eye disease 01/11/2025 Patient has diabetic eye disease 01/11/2025 Patient has chronic kidney disease 01/11/2025 Patient has chronic kidney disease 01/11/2025 Patient has chronic kidney disease 01/11/2025 Weekly blood pressure task 01/17/2025 Weekly blood pressure task 01/17/2025 Weekly blood pressure task 01/17/2025 Patient has diabetic eye disease 01/17/2025 Patient has diabetic eye disease 01/17/2025 Patient has diabetic eye disease 01/17/2025 Patient has chronic kidney disease 01/17/2025 Patient has chronic kidney disease 01/17/2025 Patient has chronic kidney disease 01/17/2025 Weekly blood pressure task 01/20/2025 Weekly blood pressure task 01/20/2025 Weekly blood pressure task 01/20/2025 Patient has diabetic eye disease 01/20/2025 Patient has diabetic eye disease 01/20/2025 Patient has diabetic eye disease 01/20/2025 Patient has chronic kidney disease 01/20/2025 Patient has chronic kidney disease 01/20/2025 Patient has chronic kidney disease 01/20/2025 Weekly blood pressure task 01/26/2025 Weekly blood pressure task 01/26/2025 Weekly blood pressure task 01/26/2025 Patient has diabetic eye disease 01/26/2025 Patient has diabetic eye disease 01/26/2025 Patient has diabetic eye disease 01/26/2025 Patient has chronic kidney disease 01/26/2025 Patient has chronic kidney disease 01/26/2025 Patient has chronic kidney disease 01/26/2025 Assessment Noted Time PHQ-9 Depression Total Score: 0 09/02/19 2:30 PM EDT documented as of this encounter Care Teams Caddy Relationship Specialty Start Date End Date Flower High MD [address] [place] [address] PCP - General Internal Medicine 07/19/22 Altranais 06/08/24 documented as of this encounter
--- OUTSIDE RECORDS SUMMARY | 2025-01-29 19:57 | XMS_ITS | Encounter Summary ---
Author Organization [employer] Address [address] [facility] [address] 7t [place] [address] Care Team Providers Care Health Support Specialist Name Role Phone Flower High MD Primary Care Pro vider Reason for Visit * Reason Onset Date Comments Med Refill No Show 09/17/2022 Encounter Details Date Type Department Care Team (Late st Contact Info) Description 09/17/2022 Refill [facility] MEDICINE [address] [place] [address] Claudette Lorenzo, ANALYTICAL LAB ANALYST [address] [place] [address] Allergic rhinitis, unspecified seasonality, unspecified trigger Social [...] Description 02/25/2025 11:30 AM EST Office Visit [facility] MEDICINE 230 [place] [address] Flower High MD [address] [place] [address] 04/27/2025 3:00 PM EDT Office Visit [facility] OPTOMETRY [address] [place] [address] Mabel Fraire, OD 230 [place] [address] documented as of this encounter Visit Diagnoses Diagnosis Allergic rhinitis, unspecified seasonality, unspecified trigger documented in this encounter Care Teams Health Support Specialist Relationship Specialty Start Date End Date Flower High MD [address] [place] [address] PCP - General Internal Medicine 07/19/22 Altranais 06/08/24 documented as of this encounter
--- OUTSIDE RECORDS SUMMARY | 2025-01-29 19:57 | XMS_ITS | Encounter Summary ---
Author Organization [employer] Address [address] [place] [address] 7[place], [place] [address] Care Team Providers Care Ep Specialist Name Role Phone Claudette Lorenzo RADHA Primary Care Provider [phone] Flower High MD Primary Care Pro vider Encounter Details Date Type Department Care Team (Late Contact Info) Description 05/06/2022 Orders Only [facility] MEDICINE [address] [place] [phone] Karlene Dow LPN Social History Tobacco Use [...] Description 02/25/2025 11:30 AM EST Office Visit [facility] MEDICINE 230 [place], [place] [phone] Flower High MD 230 [place], [place] [phone] 04/27/2025 3:00 PM EDT Office Visit [facility] OPTOMETRY [address] [place], [place] [phone] Mabel Fraire, OD [address] [place] [address] documented as of this encounter Visit Diagnoses Not on filedocumented in this encounter Care Teams Ep Specialist Relationship Specialty Start Date End Date Claudette Lorenzo FNP 230 [place] [address] PCP - General Family Medicine 10/11/21 07/18/22 Flower High MD [address] [place] [address] PCP - General Internal Medicine 07/19/22 Hermannranais 06/08/24 documented as of this encounter
--- OUTSIDE RECORDS SUMMARY | 2025-01-29 19:57 | XMS_ITS | Encounter Summary ---
Author Organization [employer] Address [address] [facility] [address] 7[address] [place] [address] Care Team Providers Care Stock Repairer Name Role Phone Flower High MD Primary Care Pro vider Reason for Visit * Reason Comments Med Refill Encounter Details Date Type Department Care Team ([facility] st Contact Info) Description 09/27/2024 Refill [facility] MEDICINE [address] [place] [address] J Carlos Sin MD [address] [place] [address] Social History Tobacco Use Types Packs/Day Years [...] Description 02/25/2025 11:30 AM EST Office Visit [facility] MEDICINE [address] [place] [address] Flower High MD [address] [place] [address] 04/27/2025 3:00 PM EDT Office Visit [facility] OPTOMETRY [address] [place] [address] Juno, Mabel, OD [address] [place] [address] documented as of this encounter Visit Diagnoses Not on filedocumented in this encounter Additional Health Concerns Assessment Noted Time PHQ-9 Depression Total Score: 0 09/02/19 25 2:30 PM EDT documented as of this encounter Care Teams Stock Repairer Relationship Specialty Start Date End Date Flower High MD 230 [place] [address] PCP - General Internal Medicine 07/19/22 Altranais 06/08/24 documented as of this encounter
--- OUTSIDE RECORDS SUMMARY | 2025-01-29 19:58 | XMS_ITS | Clinical Summary ---
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 75 mL 3 024 Active Blood Glucose Monitoring Suppl (FreeStyle Jerome Lite) w/Device kitIndications:T ype 2 diabetes mellitus without complication, with long-term current use of insulin ([facility]) Use to test blood sugar bid dx [...] underlying condition w oth circulatory comp (HCC) Test blood sugar q 8 hours 100 each 12 024 Active pen needle 32G x 4 mm miscIndications: Type 2 diabetes mellitus without complication, with long-term current use of insulin ([facility]) Use as instructed 30 each 12 024 Active Easy Touch Lancets 33G/Twist misc TEST BLOOD SUGAR 3 TIMES A DAY DIRECTED 100 each 11 01/12/20 25 10:45 AM EST 024 Active Continuous Glucose Educational/Development Assistant (FreeStyle Erinn 3 Preston) deviceIndication s:Type 2 diabetes mellitus without complication, with long-term current use of insulin ([facility]) 1 each 3 times daily. As directed 1 each 024 Active Continuous Glucose Sensor (FreeStyle Erinn 3 Plus Sensor) miscIndications: Type 2 diabetes mellitus without complication, with long-term current use of insulin ([facility]) USE DIRECTED TO TEST BLOOD SUGAR, CHANGE EVERY 15 DAYS 15 DAYS 2 each 01/12/20 25 10:45 AM EST 025 Active ipratropium-albu terol (Duo-Neb) 0.5-2.5 mg/3 mL nebulizer solution 025 Active albuterol (2.5 MG/3ML) 0.083% nebulizer solution Take 3 mL (2.5 mg) by nebulization every 6 (six) hours if needed for wheezing. 75 mL 3 025 Active FREESTYLE LITE test stripIndications :Type 2 diabetes mellitus without complication, with long-term current use of insulin ([facility]) TEST BLOOD SUGAR THREE TIMES DAILY DIRECTED 100 strip 11 01/28/20 11:18 AM EST 025 Active Ventolin HFA 108 (90 Base) MCG/ACT inhaler Inhale 1-2 puffs every 4 (four) hours if needed for shortness of breath or wheezing. 18 g 2 025 Active Spacer/Aero-Hold ing Chambers (OptiChamber Dennise) misc 1 each every 4 (four) hours if needed (asthma). 1 each Active Alcohol Swabs (Alcohol Prep) 70 % pads USE DIRECTED TO TEST BLOOD SUGAR THREE TIMES DAILY DIRECTED 100 each 5 01/28/20 25 11:18 AM EST Active Diclofenac Sodium 1 % gel Apply 2 g topically if needed in the morning, at noon, in the evening, and at bedtime (pain). 150 g 3 Active rosuvastatin (Crestor) 40 MG tablet TAKE 1 TABLET BY MOUTH AT BEDTIME 90 tablet 1 Active budesonide (Pulmicort) 0.5 MG/2ML nebulizer solution INHALE 1 AMPULE USING A NEBULIZER TWICE DAILY Active insulin lispro (HumaLOG) 100 UNIT/ML injection SS ( CBG 150-200: 4u, 201-250: 6u, 251-300: 8u, 301-350: 10u 15 mL 2 01/12/20 10:45 AM EST 025 Active lidocaine (Lidoderm) 5 % patchIndications :Chronic bilateral low back pain without sciatica Apply 1 patch topically Once per day. Remove & discard patch within 12 hours or as directed by MD. 30 patch 2 Active ezetimibe (Zetia) 10 MG tablet Take 1 tablet (10 mg) by mouth in the morning. 90 tablet 1 025 Active Dulaglutide (Trulicity) 1.5 MG/0.5ML solution auto-injectorInd ications:Type 2 diabetes mellitus without complication, with long-term current use of insulin (HCC) Inject 1.5 mg under the skin 1 (one) time per week. 0.5 mL 2 01/12/20 10:45 AM EST 025 Active insulin glargine (Lantus) 100 UNIT/ML injectionIndicat [...] out of his Medbox 90 capsule Active naloxone (Narcan) 4 mg/0.1 mL nasal [...] mouth in the morning. 90 tablet Active Trelegy Ellipta 200-62.5-25 MCG/ACT aerosol powder INHALE 1 PUFF BY MOUTH EVERY DAY AT THE SAME TIME RINSE MOUTH AFTER USING 1 each 5 Active gabapentin (Neurontin) 300 MG capsuleIndicatio ns:Chronic midline low back pain without sciatica TAKE 1 CAPSULE BY MOUTH THREE TIMES DAILY IN THE MORNING, EVENING, AND BEDTIME 90 capsule 1 01/22/20 25 10:50 AM EST Active aspirin (Aspirin Low Dose) 81 MG EC tabletIndication s:Type 2 diabetes mellitus without complications (HCC) Take 1 tablet (81 mg) by mouth at bedtime. 90 tablet 1 01/22/20 25 10:50 AM EST 025 Active metFORMIN (Glucophage) 500 MG tablet TAKE 1 TABLET BY MOUTH EVERY MORNING and TAKE 2 TABLETS BY MOUTH EVERY DAY IN THE EVENING 270 tablet 01/22/20 25 10:50 AM EST 025 Active cyanocobalamin (Vitamin B-12) 1000 MCG tabletIndication s:Routine health maintenance Take 1 tablet (1,000 mcg) by mouth at bedtime. 90 tablet 01/22/20 25 10:50 AM EST 025 Active COVID-19 At-Home Test kit 1 each by In Vitro route if needed (Covid symptoms). 2 kit Active magnesium oxide (Mag-Ox) 400 MG tablet TAKE 1 TABLET BY MOUTH ONCE DAILY 90 tablet 1 Active lisinopril-hydro CHLOROthiazide 20-12.5 MG tabletIndication s:Primary hypertension TAKE 1 TABLET BY MOUTH EVERY MORNING 90 tablet 01/22/20 25 10:50 AM EST Active pantoprazole (ProtoNix) 40 MG EC tablet Take 1 tablet (40 mg) by mouth in the morning. 90 tablet 01/22/20 25 10:50 AM EST Active oxyCODONE (Roxicodone) 5 MG immediate release tabletIndication s:Chronic bilateral low back pain without sciatica TAKE 1 TABLET BY MOUTH EVERY TWELVE HOURS NEEDED FOR SEVERE PAIN 28 tablet 025 2024 Active Aspirin Low Dose 81 MG EC tabletIndication s:Type 2 diabetes mellitus without complications (HCC) TAKE 1 TABLET BY MOUTH EVERY EVENING 90 tablet 1 2024 Discontinued(R eorder (will not trigger notification to Pharmacy)) Trelegy Ellipta 200-62.5-25 MCG/ACT aerosol powder Take 1 puff by mouth in the morning. 1 each 3 01/12/20 25 10:55 AM EST 2024 Discontinued metFORMIN (Glucophage) 500 MG tablet TAKE 1 TABLET BY MOUTH EVERY MORNING and TAKE 2 TABLETS BY MOUTH EVERY DAY IN THE EVENING 270 tablet 2024 Discontinued(R eorder (will not trigger notification to Pharmacy)) pantoprazole (ProtoNix) 40 MG EC tablet TAKE 1 TABLET BY MOUTH EVERY MORNING 90 tablet 2024 Discontinued(R eorder (will not trigger notification to Pharmacy)) cyanocobalamin (Vitamin B-12) 1000 MCG tabletIndication s:Routine health maintenance TAKE 1 TABLET BY MOUTH EVERY EVENING 90 tablet 025 2024 Discontinued(R eorder (will not trigger notification to Pharmacy)) lisinopril-hydro CHLOROthiazide 20-12.5 MG tabletIndication s:Primary hypertension TAKE 1 TABLET BY MOUTH EVERY MORNING 90 tablet 025 2024 Discontinued(R eorder (will not trigger notification to Pharmacy)) gabapentin (Neurontin) 300 MG capsuleIndicatio ns:Chronic midline low back pain without sciatica TAKE 1 CAPSULE BY MOUTH THREE TIMES DAILY IN THE MORNING, EVENING, AND BEDTIME 90 capsule 1 025 2024 Discontinued(R eorder (will not trigger notification to Pharmacy)) oxyCODONE (Roxicodone) 5 MG immediate release tabletIndication s:Chronic bilateral low back pain without sciatica TAKE 1 TABLET BY MOUTH EVERY TWELVE HOURS NEEDED FOR SEVERE PAIN 28 tablet 025 2024 Discontinued Active Problems Problem Noted Date [...] -Will monitor CBC today and refer to secretary to the vice president at next apt (anemia) Abnormal uterine bleeding 11/13/2022 Assessment & Plan (11/13/2022 7:01 AM EDT): Pt was seen at the [facility] last mo for AUB. Already referred by provider to puppet maker. Not gone yet. gave today information to [...] apt. -colonoscopy:Per pt done in 2020 at [facility]-- ---- requested today record to Abiola Menendez [...] 11/2022 -colonoscopy:Per pt done in 2020 at [facility]-- ---- requested today record to Abiola Land. [...] of bladder ca-thinks saw last oncologist at [facility] like 5 y ago -unsure if needed [...] of bladder ca-thinks saw last oncologist at [facility] like 5 y ago -unsure if needed [...] care w psychiatrist and PT-seems f w [facility] clinic in this building -psych meds refilled by specialist Assessment & Plan (08/19/2022 5:41 PM EDT): Pt w hx of depression/anxiety and panic attacks Denies SI -continue care w psychiatrist and PT-seems f w [facility] in this building -psych meds refilled [...] Asthma/COPD Overlap syndrome Pt is following w health specialist -Dr Morales -last note obtained on 02/2022 [...] med -advised pt to f w her health specialist and I printed at last apt CT chest done in 2019 with abnormal findings -not mentioned in last pulm visit note from 02/2022 -pt will f w specialist about need to repeat image if not done before Assessment & Plan (08/19/2022 6:08 PM EDT): Asthma/COPD Overlap syndrome Pt is following w health specialist -Dr Morales -last note obtained on 02/2022 [...] ED -advised pt to f w her health specialist and I printed today CT chest done [...] mild JIMBO per pulm note -f w health specialist who referred back x sleep studies -pd to have test done -DELISA Luu gave info to pt to call to reschedule apt Assessment & Plan (08/19/2022 5:30 PM EDT): Pt has JIMBO-uses CPAP at night sleep study in 2018 : mild JIMBO per pulm note -f w health specialist who referred back x sleep studies -pd [...] Encounters Date Type Department Care Team Description 01/26/2025 Refill [facility] [address] [place] [address] Caril Sanabria, GIBSON Chronic bilateral low back pain without sciatica 01/17/2025 Refill [facility] [address] [place] [address] Flower High MD Primary hypertension 01/13/2025 Refill [facility] [address] [place] [address] Flower High MD Primary hypertension 01/08/2025 Refill [facility] [address] [place] [address] Flower High MD Chronic midline low back pain without sciatica; Type 2 diabetes mellitus without complications (HCC); Routine health maintenance 01/03/2025 Telephone [facility] [address] [place] [address] Flower High MD Durable Medical Equipment 12/30/2024 Telephone [facility] [address] [place] [address] Cori Dave RN 12/30/2024 Telephone [facility] [address] [place] [address] Flower High MD Appointment Request 12/25/2024 Refill [facility] [address] [place] [address] Arnel Lawrence MD 12/24/2024 Refill [facility] [address] [place] [address] Flower High MD Chronic bilateral low back pain without sciatica 12/16/2024 Refill [facility] [address] [place] [address] Flower High MD 12/15/2024 Orders Only GENERIC EXTERNAL DATA DEPARTMENT Provider, Generic External Data 12/13/2024 Telephone [facility] [address] [place] [address] Flower High MD luz marina recall 12/07/2024 Telephone [facility] [address] [place] [address] Flower High MD Durable Medical Equipment (Com[employer]) 11/18/2024 Telephone [facility] [address] [place] [address] Cori Dave RN 11/18/2024 Refill [facility] [address] [place] [address] Flower High MD 11/17/2024 Telephone [facility] [address] [place] [address] Cori Dave, RN Appointment Request 11/16/2024 Telephone [facility] [address] [place] [address] Flower High MD Prior Auth DME 11/15/2024 Refill [facility] [address] [place] [address] Frida Smith DO 11/15/2024 Refill [facility] [address] [place] [address] Flower High MD Chronic bilateral low back pain without sciatica 11/14/2024 Refill [facility] [address] [place] [address] Flower High MD Chronic midline low back pain without sciatica 11/10/2024 Refill [facility] [address] [place] [address] Flower High MD Type 2 diabetes mellitus without complication, with long-term current use of insulin ([facility]) 11/02/2024 Refill [facility] [address] [place] [address] Frida Smith DO from Last 3 Months Immunizations Immunization Administration [...] housing situation today? I have tomaspedro ashley 09/01/[address] [...] the past 12 months, has t he [employer], gas, oil or water company threatened to [...] Description 02/25/2025 11:30 AM EST Office Visit [facility] [address] [place] [address] Flower High MD [address] [place] [address] 04/27/2025 3:00 PM EDT Office Visit [facility] OPTOMETRY [address] [place] [address] Mabel Fraire, OD [address] [place] [address] Health Maintenance Due Date Last Done Comments [...] on patient's age to complete this topic Goals Goal Patient Goal Type Associated Problems [...] Care Plan Weekly blood pressure task No Shawn Crockera Patient has diabetic eye disease Care Plan Patient has diabetic eye disease No Shawn Crockera Patient has diabetic eye disease Care Plan Patient has diabetic eye disease No Shawn Crockera Patient has diabetic eye disease Care Plan Patient has diabetic eye disease No Shawn Crockera Patient has chronic kidney disease Care Plan Patient has chronic kidney disease No Shawn Crockera Patient has chronic kidney disease Care Plan Patient has chronic kidney disease No Shawn Crockera Patient has chronic kidney disease Care Plan Patient has chronic kidney disease No Shawn Crockera Weekly blood pressure task Care Plan Weekly blood pressure task No Karlene Dow LPN Weekly blood pressure task Care Plan Weekly blood pressure task No Karlene Dow VICE PRESIDENT RESIDENTIAL SOLAR SALES Weekly blood pressure task Care Plan Weekly blood pressure task No Karlene Dow VICE PRESIDENT RESIDENTIAL SOLAR SALES Patient has diabetic eye disease Care Plan Patient has diabetic eye disease No Karlene Dow VICE PRESIDENT RESIDENTIAL SOLAR SALES Patient has diabetic eye disease Care Plan Patient has diabetic eye disease No Dow, Karlene, VICE PRESIDENT RESIDENTIAL SOLAR SALES Patient has diabetic eye disease Care Plan Patient has diabetic eye disease No Dow, Karlene, VICE PRESIDENT RESIDENTIAL SOLAR SALES Patient has chronic kidney disease Care Plan Patient has chronic kidney disease No Dow, Karlene, VICE PRESIDENT RESIDENTIAL SOLAR SALES Patient has chronic kidney disease Care Plan Patient has chronic kidney disease No Dow, Karlene, VICE PRESIDENT RESIDENTIAL SOLAR SALES Patient has chronic kidney disease Care Plan Patient has chronic kidney disease No Dow, Karlene, VICE PRESIDENT RESIDENTIAL SOLAR SALES Weekly blood pressure task Care Plan Weekly [...] Plan Weekly blood pressure task No Frida George, PharmD Weekly blood pressure task Care Plan Weekly blood pressure task No Laura Georgefer, PharmD Weekly blood pressure task Care Plan Weekly blood pressure task No Laura Georgefer, PharmD Patient has diabetic eye disease Care Plan Patient has diabetic eye disease No George, Frida, PharmD Patient has diabetic eye disease Care Plan Patient has diabetic eye disease No GeorgeLeilaFrida, PharmD Patient has diabetic eye disease Care Plan Patient has diabetic eye disease No George Frida, PharmD Patient has chronic kidney disease Care Plan Patient has chronic kidney disease No George Frida, PharmD Patient has chronic kidney disease Care Plan Patient has chronic kidney disease No George Frida, PharmD Patient has chronic kidney disease Care Plan Patient has chronic kidney disease No George, Frida, PharmD Weekly blood pressure task Care Plan Weekly blood pressure task No Agnes Irvin Weekly blood pressure task Care Plan Weekly blood pressure task No Agnes Irvin Weekly blood pressure task Care Plan Weekly blood pressure task No Agnes Irvin Patient has diabetic eye disease Care Plan Patient has diabetic eye disease No Agnes Irvin Patient has diabetic eye disease Care Plan Patient has diabetic eye disease No Agnes rIvin Patient has diabetic eye disease Care Plan Patient has diabetic eye disease No Agnes Irvin Patient has chronic kidney disease Care Plan Patient has chronic kidney disease No Agnes Irvin Patient has chronic kidney disease Care Plan Patient has chronic kidney disease No Agnes Irvin Patient has chronic kidney disease Care Plan Patient has chronic kidney disease No Agnes Irvin Weekly blood pressure task Care Plan Weekly [...] chronic kidney disease No Cori Dave RN Procedures Procedure Name Priority Date/Time Associated Diagnosis Comments CYTOPATH-CELL ENHANCED Routine 6:17 PM EDT ALBUMIN, RANDOM URINE W/CREATININE Routine 10/26/2024 10:55 AM EDT Type 2 diabetes mellitus without complication, with long-term current use of insulin ([facility]) LIPID PANEL, STANDARD Routine 10/26/2024 10:55 AM EDT Type 2 diabetes mellitus without complication, with long-term current use of insulin ([facility]) POCT GLYCATED HEMOGLOBIN, TOTAL Routine 10/26/2024 10:20 AM EDT Type 2 diabetes mellitus without complication, with long-term current use of insulin (CMS/HCC) HEPATITIS C AB W/REFL TO HCV RNA, [...] 6:17 PM EDT 12/17/2024 6:24 AM EDT [facility] - 12/20/2024 11:23 AM EST ----- ------- Name: Carole Tapia Age/Sex: 73/F : 1950 Unit#: [id number] Attend Dr: Abran Hayes MD Re12/16/24 Status: DEP REF Location: .LAB Disch: ----- ------- SPEC : [id number] RECD: 12/17/24 STATUS: KAYE TY NUM: [id number] HONEY: 12/15/[address] [facility] [address]: Abran Hayes MD ENTERED: 12/17/24 [...] developed and their performance characteristics determined by [facility]. They have not been cleared or approved by the U.S. Food and Drug Administration (FDA). However, the FDA has determined that such clearance or approval is not necessary. This laboratory is certified under the Clinical Laboratory Improvement Amendments of 1988 (CLIA) as qualified to perform high complexity clinical laboratory testing. Copies To: Abran Hayes MD [facility] [address] [place] [address] Dr. [address] [place], [place] [phone] [email or web address] Flower High MD [address] [phone] CONTINUED ON NEXT PAGE ----- ------- Name: Carole Tapia Age/Sex: 73/F : 1950 Unit#: [id number] Attend Dr: Abran Hayes MD Re12/16/24 Status: [facility] REF Location: [facility] Disch: ----- ------- SPEC : [id number] RECD: 12/17/24 STATUS: MONICAAries KARSON NUM: [id number] HONEY: 12/15/[address] [facility] [address]: Abran Hayes MD ENTERED: 12/17/24 SP TYPE: Cytology OTHR DR: Flower High MD ORDERED: Cyto-enhanced ----- ------- Signed (signature on file) Beatriz Wu MD 12/20/24 1123 ----- ------- END OF REPORT us Generic External Data Provider LAB CYTOLOGY YURY BUTCHER Final Result Performing Organization Address [facility] Co de Phone Number [facility] [address] [place] [phone] * Albumin, Random Urine W/Creatinine (10/26/2024 10:55 AM EDT) Creatinine, Urine 150.76 mg/dL [facility] Microalbumin Urine 6.0 mg/L H [facility] Microalbum Creatinine Ratio Ur 3.9 <30 ug/mg cr [facility] Comment:Albumin/Creatinine R atio Reference Ranges: Normal: < 30 ug/mg creatinine Microalbuminuria: 30 - 300 ug/mg creatinineClinical Albuminuria: > 300 ug/mg creatinine Urine (Urine, Random) 10/26/2024 10:55 AM EDT 10/26/2024 11:21 AM EDT us Flower Miranda MD LAB URINE ORDERAB LES Final Result Performing Organization Address [facility] Co de Phone Number [facility] [address] [place] [phone] * (ABNORMAL) Lipid Panel, Standard (10/26/2024 10:55 AM EDT) Triglycerides 206(H) <150 mg/dL [facility] Comment:Desirable Triglyceri de: less than 150 mg/dLBorderline High Triglyceride 150-199 mg/dLHigh Triglyceride: 200-499 mg/dLVery High Triglyceride: greater than or equal to 5OO mg/dL Cholesterol 171 <200 mg/dL [facility] Comment:Desirable Cholestero l: less than 200 mg/dLBorderline High Cholesterol: 200-239 mg/dLHigh Cholesterol: greater than 239 mg/dL LDL Cholesterol Calculated 58 <100 mg/dL [facility] Comment:Desirable LDL: less than 100 mg/dLNear Optimal/Above Optimal LDL: 110- 129 mg/dLBorderline High LDL: 130-159 mg/dLHigh LDL: 160-189 mg/dLVery High LDL: greater than or equal to 190 mg/dL HDL Cholesterol 72 >40 mg/dL [facility] Comment:Desirable HDL: great er than 40 mg/dL Note: This HDL assay may give artificially low results in patients with liver disease. Blood Venous blood specimen / Unknown 10/26/2024 10:55 AM EDT 10/26/2024 11:24 AM EDT Flower Miranda MD LAB BLOOD ORDERAB LES Final Result Performing Organization Address [facility]/ZIP Co de Phone Number [facility] [address] [place] [phone] * (ABNORMAL) POCT Hgb A1c (10/26/2024 10:20 AM EDT) Hemoglobin A1C 7.1(A) 4.0 - 5.7 % QC Media Lot # [id number] Lot# Expiration Date [id number] Blood 10/26/2024 10:2 0 AM EDT Flower Miranda MD POINT OF CARE ALIRIO T ENTER/EDIT ORDERABLES Final Result * Hepatitis C Antibody with Reflex to HCV, RNA, Quantitative, Real-Time PCR (01/06/2024 11:28 AM EST) Hepatitis C Antibody Nonreactive Nonreactive [facility] Comment:Antibodies to HCV no t detected; does not exclude early acuteHCV infection. Blood Venous blood specimen / Unknown 01/06/2024 11:28 AM EST 01/06/2024 1:08 PM EST Flower Miranda MD LAB BLOOD ORDERAB LES Final Result Performing Organization Address City/[facility] Co de Phone Number [facility] [address] [place] [phone] * BI Mammogram Screening Tomosynthesis Bilateral (12/25/2023 12:35 PM EST) Anatomical Region Laterality Modality Breast Bilateral Mammography 12/25/2023 12:3 5 PM EST Narrative 01/02/2024 4:11 PM EST [facility] [address] [place] [address] Mammography Report Signed Patient: Carole Tapia MR#: [id number] : 1950 Acct:[id number] Age/Sex: 72 / F ADM Date: 12/25/23 Loc: HO.MAMMO Attending Dr: Flower Miranda MD Ordering Physician: Flower High MD Re sults: 2Benign Findings Date of Service: 12/25/23 Follow Up: 1 Year From Orig inal Mammogram Procedure(s): MM tomosynthesis screening BI Accession Number(s): [id number] cc: Flower High MD EXAMINATION: MM SCREENING [...] 01/02/24 1608 DD/ 1235 TD/TT: 12/25/23 1253 Poultry Eviscerator: Procedure Note Donotuseinterpreter, Image - 01/02/2024 [place] [facility] [address] [place], [place] [address] Mammography Report Signed Patient: Sherrie Tapia#: [id number] : 1950cct:[id number] Age/Sex: 72 / FADM Date: 12/25/23 Loc: HO.MAMMO Attending Dr: Flower Miranda MD Ordering Physician: Flower High sults: 2Benign Findings Date of Service: 12/25/23Follow Up: 1 Year From Orig inal Mammogram Procedure(s): MM tomosynthesis screening BI Accession Number(s): [id number] cc: Flower Hgih MD EXAMINATION: MM SCREENING DIGITAL BREAST TOMOSYNTHESIS, [...] 01/02/24 1608 DD/ 1235 TD/TT: 12/25/23 1253 Poultry Eviscerator: us Flower Miranda MD IMG BI PROCEDURES Final Result * Referral to Podiatry (09/29/2023) Flower Miranda MD OUTPATIENT REFERR AL ORDERABLES Final Result * Colonoscopy (06/16/2012) Colonoscopy Normal Normal Historical Provider HEALTH MAINTENANCE Final Result from Last 3 Months or Most Recently Relevant to Health Maintenance Additional Health Concerns Active Problems Noted Date [...] 01/26/2025 Patient has chronic kidney disease 01/26/2025 Insurance [employer] (HMO D-SNP) [place] [address] Care Teams [employer] Gro[employer] Machine Operator Relationship Specialty Start Date End Date Flower High MD [address] [place] [phone] PCP - General Internal Medicine 07/19/22 [facility] 06/08/24
[2025-01-29 21:39] VITALS: BP 102/48; PULSE 91; RESP 18; O2SAT 92
--- NOTE | 2025-01-29 22:00 | PC.NURSE ---
pt requesting O2 via nasal cannula, O2 down to 90% on room air, says she has oxygen at home as needed.
--- NOTE | 2025-01-29 23:48 | ED.ABDPAIN ---
HPI - Abdominal Pain General Chief Complaint: Abdominal Pain Stated Complaint: ABD PAIN,SOB,94% ON 2LPM PER EMS Time Seen by Provider: 01/29/25 20:18 Source: patient Limitations: language barrier History of Present Illness ED Provider: Thea Gambino PA-C HPI narrative: 74-year-old female with a history of morbid obesity, constipation, diabetes, hypertension, GERD, COPD/asthma overlap, who presents with upper abdominal discomfort since earlier today. Pain is nonradiating, across entire upper abdomen. Unable to describe the nature of her discomfort. Denies abdominal distention or inability to pass flatus. Denies active nausea vomiting or fever. Patient states she is constipated, has not had a bowel movement in 2 days. Denies postprandial discomfort or nausea. Related Data Home Medications ?Medication ?Instructions ?Recorded ?Confirmed aspirin 81 mg tablet,delayed 81 mg PO BEDTIME 07/11/20 12/23/24 release Held on 07/07/24. Instructions: Resume on 07/14/24. cetirizine 10 mg tablet 10 mg PO DAILY 07/11/20 12/23/24 cholecalciferol (vitamin D3) 50 50 mcg PO DAILY 07/11/20 12/23/24 mcg (2,000 unit) capsule gabapentin 300 mg capsule 300 mg PO TID 07/11/20 12/23/24 linagliptin 5 mg tablet 5 mg PO DAILY 07/11/20 12/23/24 metformin 500 mg tablet 1,000 mg PO BEDTIME 07/11/20 12/23/24 sertraline 100 mg tablet 150 mg PO DAILY 07/11/20 12/23/24 lisinopril 20 1 tab PO DAILY 10/12/21 12/23/24 mg-hydrochlorothiazide 12.5 mg tablet rosuvastatin 40 mg tablet 40 mg PO BEDTIME 10/12/21 12/23/24 buspirone 10 mg tablet 10 mg PO BID 02/25/22 12/23/24 cyanocobalamin (vitamin B-12) 1,000 mcg PO QPM 05/06/23 12/23/24 1,000 mcg tablet nebulizers 10/27/23 12/16/24 calcium carbonate 500 mg PO BID 02/23/24 12/23/24 lancets 33 gauge (TRUEplus Lancets) #100 ea 01/06/25 10/30/25 Previous Rx's ?Medication ?Instructions ?Recorded fluticasone fur. 200 mcg-umeclid 1 inh inhalation DAILY #60 ea 04/09/24 62.5 mcg-vilant 25 mcg inhalat.powder (Trelegy Ellipta) ipratropium 0.5 mg-albuterol 3 mg 3 ml inhalation QID 30 days #360 mL 04/09/24 (2.5 mg base)/3 mL nebulization soln albuterol sulfate 2.5 mg/3 mL 2.5 mg (3 mL) inhalation QID 04/29/24 (0.083 %) solution for nebulization shortness of breath or wheezing #180 mL doxycycline hyclate 100 mg capsule 100 mg PO BID antibiotic #6 caps 07/06/24 mirabegron 50 mg tablet,extended 50 mg PO DAILY #30 tabs 07/07/24 release 24 hr (Myrbetriq) albuterol sulfate 90 mcg/actuation 2 puff inhalation Q6H PRN 09/06/24 aerosol inhaler shortness of breath or wheezing 30 days #18 grams nicotine 14 mg/24 hr daily 1 patch transdermal DAILY 28 days 09/06/24 transdermal patch #28 ea omeprazole 40 mg capsule,delayed 40 mg PO DAILY #30 caps 09/25/24 release roflumilast 500 mcg tablet 500 mcg PO DAILY 30 days #30 tabs 11/16/24 (Daliresp) montelukast 10 mg tablet 10 mg PO BEDTIME 90 days #90 tabs 11/18/24 (Singulair) azithromycin 250 mg tablet 250 mg PO 3XW 28 days #12 tabs 12/06/24 nicotine 14 mg/24 hr daily 1 patch transdermal DAILY 28 days 12/06/24 transdermal patch #28 ea nicotine 14 mg/24 hr daily 1 patch transdermal DAILY 28 days 12/06/24 transdermal patch #28 ea ondansetron 4 mg disintegrating 4 mg PO Q8H PRN nausea and 01/29/25 tablet vomiting #10 tabs ipratropium 20 mcg-albuterol 100 1 puff inhalation Q6H #4 grams 01/31/25 mcg/actuation mist for inhalation (Combivent Respimat) prednisone 10 mg tablet 10 mg PO DAILY 30 days #30 tabs 02/02/25 Allergies Allergy/AdvReac Type Severity Reaction Status Date / Time No Known Allergies (No Known Allergy Verified 01/29/25 19:03 Allergies*) Review of Systems Review of Systems Yes all other systems are reviewed and are negative Constitutional: Denies fatigue and Denies fever(s) Cardiovascular: Denies chest pain and Denies dyspnea Respiratory: Denies cough and Denies dyspnea Gastrointestinal: Reports abdominal pain, Denies bloating, Reports constipation, Denies diarrhea, Denies nausea and Denies vomiting Musculoskeletal: Denies back pain Endocrine: Denies fatigue PMFSH Past Medical History Attestation statement: The following information was validated with the patient. Medical History Bladder mass Personal history of nicotine dependence Osteopenia Bladder cancer (~2018) Hypertension Diabetes mellitus Asthma-COPD overlap syndrome JIMBO (obstructive sleep apnea) Nicotine dependence, cigarettes, uncomplicated Bilateral anterior knee pain Surgical History History of transurethral resection of bladder tumor (TURBT) History of esophagogastroduodenoscopy (EGD) History of colonoscopy Family History Family History (Updated 12/23/24 @ 10:51 by José Miguel Kennedy CNA) Son Heart murmur Son Heart problem Social History Social History (Updated 12/23/24 @ 10:51 by José Miguel Kennedy CNA) Household Members: None Housing: Apartment Are you a primary intensive care nurse to a significant other at home: No Do you presently have visiting nurse or other home services: Yes (HEALTH INFORMATION SPECIALIST (daughter)) Alcohol intake: current Alcohol intake frequency: holidays/special occasions only Patient Tobacco Use Status: Current everyday Tobacco user Tobacco use type: Cigarette Cigarettes Per Day: 1 Years Smoked: (onset 15yr,s 1/2-1ppd x 50yrs, 35pyh, quit 2020) service: No Current occupational status: retired and disabled 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 Physical Exam ED Vital Signs: Vital Signs - 24 hr 01/29/25 19:01 01/29/25 19:37 01/29/25 21:39 Temperature 98.2 F 98.1 F Pulse Rate 94 99 91 Respiratory Rate 20 21 H 18 Blood Pressure 133/67 111/55 L 102/48 L Pulse Oximetry 94 97 92 Oxygen Delivery Method Room Air Room Air BMI result Body Mass Index 24.9 Const Other: Resting quietly in bed, somewhat sleeping, easily woken with verbal stimuli Orientation/consciousness: patient oriented x3 Resp Effort & Inspection: normal respiratory effort Cardio Other: Normal peripheral perfusion GI Other: Soft, obese abdomen, nondistended no tenderness no guarding Skin Other: Warm dry no rash Neuro General: patient oriented x3, gait normal, no focal motor deficits and CN's II-XI intact bilaterally Psych Other: Cooperative Medical Decision Making Medical Decision Making [facility] Narrative: 74-year-old female with a history of morbid obesity, constipation, diabetes, hypertension, GERD, COPD/asthma overlap, who presents with upper abdominal discomfort since earlier today. Pain is nonradiating, across entire upper abdomen. Unable to describe the nature of her discomfort. Denies abdominal distention or inability to pass flatus. Denies active nausea vomiting or fever. Patient states she is constipated, has not had a bowel movement in 2 days. Denies postprandial discomfort or nausea. Problem: Age, obesity, constipation, diabetes History: Per patient I have considered the following differential diagnoses: Constipation, bowel obstruction, atypical presentation for ACS, GERD/gastritis, biliary colic, cholecystitis, pancreatitis Plan: Patient here with a upper abdominal discomfort, however her exam was unremarkable. Screening labs including LFTs and lipase are normal, she does not require advanced imaging. I do feel the constipation is the trigger, adding on a KUB. I have independently reviewed the following tests: Labs: No leukocytosis, not anemic, no electrolyte abnormality, troponin less than 2.7, no elevation of LFTs, lipase 18 KUB: Findings: No gas distended loops of small bowel. No air-fluid levels. Moderate constipation. No acute soft tissue or osseous abnormality. Visualized lung bases are unremarkable. No free air. Impression: 1. Moderate constipation otherwise no acute findings. Differential Diagnosis Differential Diagnoses: The differential diagnosis associated with the presentation includes See [facility] Admission/Observation Consideration of admission/observation: Escalation of care including admission/observation considered Not applicable Lab Data [facility] Lab Attestation statement: I reviewed the patient's lab results. 01/29/25 19:14 01/29/25 19:14 Labs: Lab Results 01/29/25 Range/Units 19:14 WBC 7.9 (4.8-10.8) X10*3/uL RBC 3.78 L (4.20-5.50) X10*6/uL Hgb 11.7 L (12.0-16.0) g/dl Hct 36.2 L (37.0-47.0) % MCV 95.8 (80.0-98.0) fL MCH 31.0 (27.0-33.0) pg MCHC 32.3 (31.0-35.0) g/dl RDW 12.0 (11.0-16.0) % Plt Count 473 H D (160-400) X10*3/uL MPV 9.1 L (9.4-12.3) fL Immature Gran % (Auto) 0.3 (0.0-0.4) % Neut % (Auto) 90.2 H (45-73) % Lymph % (Auto) 6.2 L (20-40) % [place] % (Auto) 2.8 (2-11) % Eos % (Auto) 0.4 (0-4) % Baso % (Auto) 0.1 (0-2) % Lymph # (Auto) 0.5 L (1.2-4.9) X10*3/uL [place] # (Auto) 0.2 (0.1-1.2) X10*3/uL Eos # (Auto) 0.0 (0.0-0.4) X10*3/uL Baso # (Auto) 0.0 (0.0-0.2) X10*3/uL Abs Immat Gran (auto) 0.02 (0.00-0.03) X10*3/uL Absolute Neuts (auto) 7.1 (2.0-8.3) x10*3/uL Absolute Nucleated RBC 0.000 (0.0-0.012) X10*3/uL Nucleated RBC % (auto) 0.0 (0.0-0.2) /100WBC Smear Tech's Comments VERIFIED Sodium 139 (135-145) mmol/L Potassium 5.4 H D (3.3-5.1) mmol/L Chloride 104 (96-108) mmol/L Carbon Dioxide 25 (22-29) mmol/L Anion Gap 15 (12-20) BUN 16 (9-16) mg/dL Creatinine 1.07 (0.5-1.4) mg/dL Estim Creat Clear Calc 37.8 Estimated GFR 50 Random Glucose 216 H (60-115) mg/dL Calcium 9.6 (8.4-10.2) mg/dL Magnesium 1.7 (1.6-2.6) mg/dL Total Bilirubin 0.2 (0.0-1.0) mg/dL Direct Bilirubin < 0.2 (0.0-0.5) mg/dL AST 26 (5-31) U/L ALT 18 (0-31) U/L Alkaline Phosphatase 77 (39-117) U/L Troponin I High Sens < 2.7 (<3.5-17.0) ng/L Total Protein 6.7 (6.5-8.0) g/dL Albumin 4.2 (3.5-5.0) g/dL Lipase 18 (8-78) U/L Radiology Impression Discussion of test interpretation with radiology: I have reviewed the radiologist's reading. Discharge Plan Discharge Clinical Impression: Constipation Patient Disposition: Home, Self-Care Instructions: Constipation (ED) Additional Instructions: All of your screening labs were normal, you were found to be constipated. See home care instructions. Use [id number] Colace twice a day, use [id number] MiraLax 3 to 4 times a day, until you begin having multiple large volume bowel movements. Follow up with your primary care provider as needed. Uses Zofran as needed for nausea. Prescriptions: New ondansetron 4 mg tablet,disintegrating 4 mg PO Q8H PRN (Reason: nausea and vomiting) Qty: 10 0RF No Action albuterol sulfate 2.5 mg /3 mL (0.083 %) solution for nebulization 2.5 mg inhalation QID Qty: 180 0RF roflumilast [Daliresp] 500 mcg tablet 500 mcg PO DAILY 30 Days Qty: 30 11RF montelukast [Singulair] 10 mg tablet 10 mg PO BEDTIME 90 Days Qty: 90 3RF Combivent Respimat 20-100 mcg/actuation mist 1 puff inhalation Q6H Qty: 4 9RF prednisone 10 mg tablet 10 mg PO DAILY 30 Days Qty: 30 1RF cyanocobalamin (vitamin B-12) 1,000 mcg tablet 1,000 mcg PO QPM doxycycline hyclate 100 mg capsule 100 mg PO BID Qty: 6 0RF mirabegron [Myrbetriq] 50 mg tablet extended release 24 hr 50 mg PO DAILY Qty: 30 0RF omeprazole 40 mg capsule,delayed release(DR/EC) 40 mg PO DAILY Qty: 30 0RF linagliptin 5 mg tablet 5 mg PO DAILY cholecalciferol (vitamin D3) 50 mcg (2,000 unit) capsule 50 mcg PO DAILY aspirin 81 mg tablet,delayed release (DR/EC) 81 mg PO BEDTIME cetirizine 10 mg tablet 10 mg PO DAILY metformin 500 mg tablet 1,000 mg PO BEDTIME gabapentin 300 mg capsule 300 mg PO TID sertraline 100 mg tablet 150 mg PO DAILY buspirone 10 mg tablet 10 mg PO BID rosuvastatin 40 mg tablet 40 mg PO BEDTIME lisinopril-hydrochlorothiazide 20-12.5 mg tablet 1 tab PO DAILY Trelegy Ellipta 200-62.5-25 mcg blister with device 1 inh INHALATION DAILY Qty: 60 2RF ipratropium-albuterol 0.5 mg-3 mg(2.5 mg base)/3 mL solution for nebulization 3 ml inhalation QID 30 Days Qty: 360 11RF nicotine 14 mg/24 hr patch 24 hour 1 patch transdermal DAILY 28 Days Qty: 28 3RF albuterol sulfate 90 mcg/actuation HFA aerosol inhaler 2 puff inhalation Q6H PRN (Reason: shortness of breath or wheezing) 30 Days Qty: 18 11RF nicotine 14 mg/24 hr patch 24 hour 1 patch transdermal DAILY 28 Days Qty: 28 5RF azithromycin 250 mg tablet 250 mg PO 3XW 28 Days Qty: 12 6RF Rx Instructions: Take 1 tablet on Friday/Friday/Friday nicotine 14 mg/24 hr patch 24 hour 1 patch transdermal DAILY 28 Days Qty: 28 3RF (DME) nebulizers Misc See Rx Instructions .Route Rx Instructions: As directed calcium carbonate 500 mg calcium (1,250 mg) tablet 500 mg PO BID (DME) lancets [TRUEplus Lancets] 33 gauge misc See Rx Instructions .ROUTE .MEDSUPPLY Qty: 100 Rx Instructions: As directed Interventions: ED Discharge Assessment Last Done: 01/30/25 00:52 Discharge Date/Time: 01/30/25 01:04 Print Language: Mosotho
[2025-01-30 00:46] VITALS: BP 115/62; PULSE 87; RESP 26; TEMP 36.7; O2SAT 95
[2025-01-30 00:52] VITALS: BP 115/62; PULSE 87; RESP 26; TEMP 36.7; O2SAT 95
== END 2025-01-30 01:04 | disposition home or self-care (01) ==
PROVIDERS: Emergency Provider Emergency Medicine Emergency Medical Services
DX: K59.00 Constipation, unspecified (principal); I10 Essential (primary) hypertension; E11.9 Type 2 diabetes mellitus without complications; J44.9 Chronic obstructive pulmonary disease, unspecified; Z79.899 Other long term (current) drug therapy; Z87.19 Personal history of other diseases of the digestive system
CPT/HCPCS: 36415; 74018; 80048; 80076; 83690; 83735; 84484; 85025; 93005; 99283; 99284

== ENCOUNTER → 2025-01-29 19:20 | Outpatient (BNV) | payer OTHER, SELFPAY | PROVIDERS: Emergency Provider Emergency Medicine Emergency Medical Services; Visit Provider Internal Medicine Cardiovascular Disease | DX: R10.9 Unspecified abdominal pain (principal) | CPT/HCPCS: 93010 ==

== ENCOUNTER → 2025-01-29 21:47 | Outpatient (BNV) | payer OTHER, SELFPAY | PROVIDERS: Emergency Provider Emergency Medicine Emergency Medical Services; Visit Provider Radiology Diagnostic Radiology | DX: K59.00 Constipation, unspecified (principal) | CPT/HCPCS: 74018 ==

== ENCOUNTER → 2025-02-09 08:51 | Outpatient (REF) | payer OTHER, SELFPAY ==
--- NOTE | 2025-02-09 08:54 | CA_ITS ---
Transthoracic Echocardiogram Patient (Last, First, Middle): Carole Tapia, Gender: Female Date of : 1950 Age: 74 Procedure Date: 02/09/2025 Procedure Type: Transthoracic Echocardiogram Location: OP Height: 149.86 cm Weight: 59.42 kg BSA: 1.54 m2 Heart Rate: 84 bpm BP: 120 / 52 mmHg Instructor Psychiatric Aide: TO Referring MD: Christopher Rayo MD Manager [place]: Avinash Crane MD Symptoms: I25.10 - Atherosclerotic heart disease of [place] coronary artery without... Study Quality: Adequate ECG Rhythm: Sinus Conclusions: - 1. Normal LV ejection fraction 55-60% with impaired relaxation filling pattern 2. Cardiac valvular Dopplers within normal limits 3. Normal RV systolic pressure 4. No gross pericardial effusion Findings Left Ventricle Normal left ventricular size, thickness, and systolic function. The visually estimated ejection fraction is between 55-60%. Spectral Doppler is indicative of an impaired relaxation filling pattern. E/E prime ratio is between 8 and 15 consistent with indeterminate filling pressures. Right Ventricle Normal right ventricular cavity size and systolic function. Atria The left atrium is likely dilated. There is lipomatous hypertrophy of the interatrial septum. There is no evidence of interatrial shunt. The right atrium is normal in size. Aortic Valve The aortic valve structure and function is likely normal. There is no aortic valve stenosis. The peak aortic velocity is 1.81 m/s with a calculated peak gradient of 13 mmHg. The mean gradient is 6 mmHg. There is no aortic valve regurgitation. Mitral Valve Normal mitral valve structure and function. There is trace mitral valve regurgitation. There is no mitral valve stenosis. Pulmonic Valve The pulmonic valve is likely normal. There is trace pulmonic valve regurgitation. Tricuspid Valve Normal tricuspid valve structure. There is trace tricuspid valve regurgitation. The right ventricular systolic pressure is normal. The right ventricular systolic pressure is 23 mmHg. Normal right atrial pressure. There is no evidence of pulmonary hypertension. Great Vessels All visible segments of the aorta are normal in size. The pulmonary artery was not well visualized. There is no dilatation of the ascending aorta measuring 3.10 cm. Small plaque is seen in the sino tubular ridge. Venous The inferior vena cava is normal in size and collapses greater than 50% with inspiration. Pericardium/Pleural There is no evidence of pericardial effusion. Prior Study Comparison No prior study available for comparison. Measurements 2D Linear Measurements IVSd: 1.09 0.6-0.9/0.6-1.0 cm LVIDd: 4.34 3.9-5.3/4.2-5.9 cm LVIDd Index: 2.82 2.4-3.2/2.2-3.1 cm/m2 LVIDs: 2.56 2.0-3.6 cm LVPWd: 0.92 0.7-1.1 cm LA Diam: 3.30 2.7-3.8/3.0-4.0 cm LAIDs Index: 2.14 1.5-2.3 cm/m2 LV Mass: 180.64 67-162/88-224 g LV Mass Index: 117.30 43-95/49-115 g/m2 LVOT Diam: 2.00 3.0+(-)1.3 cm 2D Systolic Function EF 4C: 56.70 >55% EF 2C: 61.30 >55% EF BiP: 59.30 >55% Mitral Valve MV Pk E: 0.65 MV PK A: 0.93 MV Decel Time: 185.00 E/A: 0.70 E'Lateral: 6.42 E'Medial: 5.66 E/E' Med: 11.40 E/E' Lat: 10.10 PHT: 54.00 MVA PHT: 4.07 Decel Burt: 3.50 Aortic Valve AoV Pk Js: 1.81 AoV Mn Js: 1.16 AoV VTI: 0.35 AoV Pk Grad: 13.00 Aov Mn Grad: 6.00 RIDDHI Cont.VTI: 2.52 LVOT LVOT Pk Js: 1.36 LVOT Mn Js: 0.85 LVOT VTI: 0.28 LVOT Pk Grad: 7.00 LVOT Mn Grad: 3.00 LVOT Diam: 2.00 LVOT Area: 3.14 Diastolic Function MV Pk E: 0.65 MV Pk A: 0.93 E/A: 0.70 E'Medial: 5.66 E/E' Med: 11.40 E' Laterial: 6.42 E/E' Lat: 10.10 Right Ventricle TAPSE (mm): 19.30 TVS' Js: 14.50 Tricuspid Valve TR Pk Js: 2.23 TR Pk Grad: 20.00 RA Press: 3.00 RVSP: 23.00 Great Vessels Aorta Sinus of Valsalva: 2.91 2.0-3.5 cm Ao Asc: 3.10 2.1-3.4 cm Updated in Other Vendor System with Status of Final Avinash Crane MD electronically signed on 02/10/2025 11:14:58 AM with status of Final
--- NOTE | 2025-02-09 08:54 | CA_ITS ---
Acquisition Time: 2025-02-09 10:16:52 Total Exercise Time: 00:02:00 Test Indications: cp Medications: see h&p Protocol: LEXISCAN Max HR: 114 BPM 77% of Pred: 148 BPM Max BP: 130/64 mmHG Max Work Load: 1.0 METS Pharmacological stress test with Lexiscan while pt swings her legs in chair, with reports of SOB, without any arrythmias, with normotensive response to injection. Nondiagnostic EKG for ischemia. In recovery, pt treated with IVP Aminophylline 75 mg to reverse Lexiscan after which pt feeling back to baseline. Nuclear images pending. Test reviewed with Dr. Crane. Referred By: Christopher Rayo Electronically Signed By: Unruly David
== END ==
LOC: HO.CARD 08:51
PROVIDERS: PCP Student in an Organized Health Care Education/Training Program; Visit Provider Internal Medicine
DX: I25.10 Atherosclerotic heart disease of native coronary artery without angina pectoris (principal); R07.2 Precordial pain
CPT/HCPCS: 93017; 93306; J0280; J2785

== ENCOUNTER → 2025-02-09 08:54 | Outpatient (BNV) | payer OTHER, SELFPAY | PROVIDERS: PCP Student in an Organized Health Care Education/Training Program | DX: I25.10 Atherosclerotic heart disease of native coronary artery without angina pectoris (principal) | CPT/HCPCS: 93306 ==